=== PATIENT | male | born 1945 | race Caucasian/White ===

== ENCOUNTER → 2016-10-08 | Outpatient (CLI) | payer OTHER ==
[~2016-10-08] MED LIST: ACET-1256 PO; AMAN100C18 PO; ASPCH81X PO; BCTCR/30 EXT; CARB25TA12 PO; ESCI5TAB PO; FENO160T4 PO; FURO-85 PO; LISI-461 PO; LORA-741 PO; METR0.754 TOP; MIRT15TA2 PO; MOMLX PO; MRLP17X PO; MULT-845 PO; NYST100010 TOP; OMEP20TA PO; POTA10CA28 PO; PRAM1TAB6 PO; PROB1TAB16 PO; SENNTAB23 PO; TADA10TA PO; ZOLP10TA PO; [UNRECOGNIZED DRUG - OTHER] PO
[2016-10-08 09:46] LABS: URINE APPEARANCE CLEAR (CLEAR); URINE BILIRUBIN NEG (NEG); URINE COLOR YELLOW; URINE EPITHELIAL CELL AUTO 0-5 /lpf (0-5); URINE NITRITE NEG (NEG); URINE SPECIFIC GRAVITY 1.018 (1.000-1.030); UROBILINOGEN NEG (NEG); ZZUR CULT IF INDIC CLEAN CATCH NO
[2016-10-08 09:53] LABS: MANUAL MICROSCOPIC REQUIRED? NO; REVIEW REQ? NO
== END | disposition home or self-care (01) ==
LOC: C.LAB 09:04
PROVIDERS: ATTEND Urology
DX: R35.0 Frequency of micturition (principal); R31.9 Hematuria, unspecified

== ENCOUNTER → 2017-01-09 | Outpatient (CLI) | payer OTHER ==
[~2017-01-09] MED LIST changes: -METR0.754 TOP; -MIRT15TA2 PO; -MRLP17X PO; -[UNRECOGNIZED DRUG - OTHER] PO
[2017-01-09 12:20] LABS: BASO % 0.5 %; BASO ABS # 0.03 K/uL (0-0.2); COMPLETE YES; EOS % 1.4 %; HEMATOCRIT 46.3 % (42-52); IG% 0.2 %; LYMPH % 35.5 %; MEAN CELL VOLUME 90.8 fL (80-100); MEAN CORPUSCULAR HEMOGLOBIN 30.4 pg (25-34); MEAN CORPUSCULAR HGB CONC 33.5 g/dl (32-36); MEAN PLATELET VOLUME 10.4 fL (7.4-10.4); MONO % 9.9 %; NEUT % 52.5 %; PLATELET COUNT 228 K/uL (130-400); WHITE BLOOD COUNT 5.64 K/uL (4.8-10.8)
[2017-01-09 12:36] LABS: BLOOD UREA NITROGEN 21 mg/dl (7-18); BUN/CREATININE RATIO 15.8 (10-20); CARBON DIOXIDE 27 mmol/L (21-32); CHLORIDE 105 mmol/L (98-107); GLUCOSE 86 mg/dl (70-99); SODIUM 139 mmol/L (136-145)
[2017-01-09 12:38] LABS: CALCIUM 9.1 mg/dl (8.5-10.1)
== END | disposition home or self-care (01) ==
LOC: C.LAB1850 10:22
PROVIDERS: ATTEND Internal Medicine
DX: R60.0 Localized edema (principal)

== ENCOUNTER → 2017-04-23 | Outpatient (CLI) | payer OTHER ==
[2017-04-23 10:14] LABS: URINE APPEARANCE CLEAR (CLEAR); URINE BILIRUBIN NEG (NEG); URINE COLOR YELLOW; URINE NITRITE NEG (NEG); URINE PH 6.5 (4.5-7.5); URINE SPECIFIC GRAVITY 1.021 (1.000-1.030); UROBILINOGEN NEG (NEG)
[2017-04-23 10:17] LABS: MANUAL MICROSCOPIC REQUIRED? NO; REVIEW REQ? NO
== END | disposition home or self-care (01) ==
LOC: C.LAB1850 08:26
PROVIDERS: ATTEND Internal Medicine
DX: R35.0 Frequency of micturition (principal)

== ENCOUNTER → 2017-08-19 | Outpatient (CLI) | payer OTHER ==
[2017-08-19 10:38] LABS: HEMATOCRIT 41.9 % (42-52); MEAN CELL VOLUME 92.7 fL (80-100); MEAN CORPUSCULAR HEMOGLOBIN 30.5 pg (25-34); MEAN CORPUSCULAR HGB CONC 32.9 g/dl (32-36); MEAN PLATELET VOLUME 9.9 fL (7.4-10.4); PLATELET COUNT 257 K/uL (130-400); RED BLOOD COUNT 4.52 M/uL (4.7-6.1); WHITE BLOOD COUNT 5.87 K/uL (4.8-10.8)
[2017-08-19 11:09] LABS: ALT/SGPT 23 U/L (12-78); AST/SGOT 12 U/L (15-37); BLOOD UREA NITROGEN 23 mg/dl (7-18); BUN/CREATININE RATIO 17.7 (10-20); CALCIUM 8.4 mg/dl (8.5-10.1); CARBON DIOXIDE 31 mmol/L (21-32); CHLORIDE 101 mmol/L (98-107); CREATININE 1.28 mg/dl (0.60-1.40); GLUCOSE 82 mg/dl (70-99); POTASSIUM 4.1 mmol/L (3.5-5.1); SODIUM 135 mmol/L (136-145)
[2017-08-19 11:20] LABS: CHOLESTEROL 127 mg/dl (0-200); CHOLESTEROL/HDL RATIO 3.3; HDL CHOLESTEROL 39 mg/dl; LDL CHOLESTEROL CALCULATED 72 mg/dl; TRIGLYCERIDES 82 mg/dl (0-150); VERY LOW DENSITY LIPOPROT CALC 16 mg/dl
== END | disposition home or self-care (01) ==
LOC: C.LAB1850 09:46
PROVIDERS: ATTEND Internal Medicine
DX: E78.5 Hyperlipidemia, unspecified (principal); I10 Essential (primary) hypertension; G20 Parkinson's disease; R60.0 Localized edema

== ENCOUNTER → 2017-08-26 | Outpatient (CLI) | payer OTHER ==
[2017-08-26 17:28] LABS: HEMATOCRIT 42.8 % (42-52); MEAN CELL VOLUME 91.3 fL (80-100); MEAN CORPUSCULAR HEMOGLOBIN 30.7 pg (25-34); MEAN CORPUSCULAR HGB CONC 33.6 g/dl (32-36); MEAN PLATELET VOLUME 9.6 fL (7.4-10.4); PLATELET COUNT 252 K/uL (130-400); RED BLOOD COUNT 4.69 M/uL (4.7-6.1); WHITE BLOOD COUNT 6.86 K/uL (4.8-10.8)
[2017-08-26 17:51] LABS: FERRITIN 275.8 ng/ml (8.0-388.0)
== END | disposition home or self-care (01) ==
LOC: C.LAB1850 17:09
PROVIDERS: ATTEND Internal Medicine
DX: D64.9 Anemia, unspecified (principal)

== ENCOUNTER 2017-10-22 03:13 | Inpatient (IN) | payer OTHER ==
[2017-10-22] VITALS (7 sets, daily range): BP systolic 103–172; BP diastolic 64–94; PULSE 69–78; TEMP 36.1–36.6; O2SAT 95–97; Ht 185.4 cm; Wt 97.9 kg
[~2017-10-22] VITALS: Ht 185.4 cm; Wt 97.9 kg
[2017-10-22] MEDS ORDERED: FENTANYL CITRATE INJ 50 MCG/1 ML 2 ML VIAL IV STA (03:39)
--- NOTE | 2017-10-22 03:48 | EMERGENCY ROOM VISIT NOTE ---
History First contact with patient: 03:27 Chief Complaint: FALL Stated Complaint: Fall, Struck right shoulder and left hip History of Present Illness The patient is a 71 year old male who presents to the Emergency Room with complaints of left hip pain after a fall. The patient states that he was sorting his condo and had his things arranged into aisles. He states that he was walking through one of them and lost his footing and fell, landing onto his left hip. He states the hip is painful to move and he was unable to stand. He states the pain is located on the outside of the left hip and radiates down the leg. He rates the discomfort a 6/10. He denies any previous injury to the hip. He did not fall onto his head or lose consciousness. He does state that he was slightly lightheaded prior to the fall, although this is not unusual for him. He denies any chest pain or shortness of breath. Review of Systems A complete 10 point review of systems was reviewed with the patient with pertinent positives and negatives as per history of present illness. All else were negative. Past Medical/Surgical History Medical Problems: (1) Hip fracture, left Social History Smoking Status: Never Smoker Housing Status: lives alone Current/Historical Medications Scheduled Acetaminophen (Tylenol), 1,000 MG PO TID Amantadine Hcl (Amantadine Hcl), 100 MG PO BID Aspirin (Aspirin Chewable), 81 MG PO QAM Carbidopa/Levodopa (Sinemet 25MG/100MG), 2 TAB PO TID Fenofibrate (Lofibra), 1 TAB PO QAM Lisinopril (Zestril), 10 MG PO DAILY Lorazepam (Ativan), 0.5 TAB PO HS Multiple Vitamins W/ Minerals (Centrum Silver Adult 50+), 1 TAB PO QAM Mupirocin 2% (Bactroban 2%), 1 APPLN EXT TID Nystatin (Topical) (Nystop), 1 APPLN TOP TID Omeprazole (Omeprazole), 1 TAB PO QAM Potassium Chloride (Micro-K Ext Rel), 10 MEQ PO DAILY Pramipexole Dihydrochloride (Pramipexole Dihydrochlori), 1 TAB PO TID Sennosides-Docusate Sodium (Stool Softener), PO QAM Tadalafil (Cialis), 10 MG PO UD Scheduled PRN Magnesium Hydroxide (Milk of Magnesia), 30 ML PO PRN PRN for Constipation Zolpidem Tartrate (Ambien), 1 TAB PO HS PRN for Insomnia Physical Exam Vital Signs Date Time Temp Pulse Resp B/P (MAP) Pulse Ox O2 Delivery O2 Flow Rate FiO2 10/22/17 06:18 70 18 155/95 97 Room Air 10/22/17 03:22 36.9 74 18 182/107 97 Room Air Physical Exam VITALS: Vitals are noted on the nurse's note and reviewed by myself. Vital signs stable. GENERAL: This is a 71-year-old male, in no acute distress, nondiaphoretic, well- developed well-nourished. SKIN: The skin was without rashes, erythema, edema, or bruising. HEAD: Normocephalic atraumatic. EARS: External auditory canals clear, tympanic membranes pearly huitron without erythema or effusion bilaterally. EYES: Pupils equal round and reactive to light and accommodation. Extraocular movements intact. MOUTH: Mucous membranes moist. NECK: Supple without nuchal rigidity. Cervical spine is nontender. HEART: Regular rate and rhythm without murmurs gallops or rubs. LUNGS: Clear to auscultation bilaterally without wheezes, rales or rhonchi. MUSCULOSKELETAL: No deformities noted. There is tenderness to palpation to the lateral aspect of the left hip. No tenderness of the distal femur, knee or tibia/fibula. Mild tenderness over the anterior right shoulder. NEURO: Patient was alert and oriented to person place and time. No focal neurological deficits. Medical Decision & Procedures ER Provider Diagnostic Interpretation: LEFT FEMUR: Left femoral neck fracture. PELVIS: Left femoral neck fracture. CHEST: No acute cardiopulmonary disease. SHOULDER: No obvious acute fractures. Laboratory Results 10/22/17 04:00 Red Blood Count 5.08, Mean Corpuscular Volume 91.3, Mean Corpuscular Hemoglobin 31.1, Mean Corpuscular Hemoglobin Concent 34.1, Mean Platelet Volume 10.1, Neutrophils (%) (Auto) 77.9, Lymphocytes (%) (Auto) 14.4, Monocytes (%) (Auto) 6.6, Eosinophils (%) (Auto) 0.1, Basophils (%) (Auto) 0.3, Neutrophils # (Auto) 7.07, Lymphocytes # (Auto) 1.31, Monocytes # (Auto) 0.60, Eosinophils # (Auto) 0.01, Basophils # (Auto) 0.03 10/22/17 04:00 Test 10/22/17 04:00 10/22/17 05:41 10/22/17 06:00 White Blood Count 9.08 K/uL (4.8-10.8) Red Blood Count 5.08 M/uL (4.7-6.1) Hemoglobin 15.8 g/dL (14.0-18.0) Hematocrit 46.4 % (42-52) Mean Corpuscular Volume 91.3 fL (80-100) Mean Corpuscular Hemoglobin 31.1 pg (25-34) Mean Corpuscular Hemoglobin Concent 34.1 g/dl (32-36) Platelet Count 195 K/uL (130-400) Mean Platelet Volume 10.1 fL (7.4-10.4) Neutrophils (%) (Auto) 77.9 % Lymphocytes (%) (Auto) 14.4 % Monocytes (%) (Auto) 6.6 % Eosinophils (%) (Auto) 0.1 % Basophils (%) (Auto) 0.3 % Neutrophils # (Auto) 7.07 K/uL (1.4-6.5) Lymphocytes # (Auto) 1.31 K/uL (1.2-3.4) Monocytes # (Auto) 0.60 K/uL (0.11-0.59) Eosinophils # (Auto) 0.01 K/uL (0-0.5) Basophils # (Auto) 0.03 K/uL (0-0.2) RDW Standard Deviation 47.9 fL (36.4-46.3) RDW Coefficient of Variation 14.4 % (11.5-14.5) Immature Granulocyte % (Auto) 0.7 % Immature Granulocyte # (Auto) 0.06 K/uL (0.00-0.02) Anion Gap 6.0 mmol/L (3-11) Est Creatinine Clear Calc Drug Dose 93.0 ml/min Estimated GFR () 98.6 Estimated GFR (Non- 85.1 BUN/Creatinine Ratio 25.4 (10-20) Calcium Level 8.8 mg/dl (8.5-10.1) Total Bilirubin 0.5 mg/dl (0.2-1) Aspartate Amino Transf (AST/SGOT) 19 U/L (15-37) Alanine Aminotransferase (ALT/SGPT) 32 U/L (12-78) Alkaline Phosphatase 74 U/L (45-117) Total Protein 7.6 gm/dl (6.4-8.2) Albumin 3.9 gm/dl (3.4-5.0) Globulin 3.7 gm/dl (2.5-4.0) Albumin/Globulin Ratio 1.1 (0.9-2) Prothrombin Time 10.4 SECONDS (9.0-12.0) Prothromb Time International Ratio 1.0 (0.9-1.1) Activated Partial Thromboplast Time 23.7 SECONDS (21.0-31.0) Partial Thromboplastin Ratio 0.9 Urine Color YELLOW Urine Appearance CLEAR (CLEAR) Urine pH 5.5 (4.5-7.5) Urine Specific [place] 1.023 (1.000-1.030) Urine Protein NEG (NEG) Urine Glucose (UA) NEG (NEG) Urine Ketones NEG (NEG) Urine Occult Blood NEG (NEG) Urine Nitrite NEG (NEG) Urine Bilirubin NEG (NEG) Urine Urobilinogen NEG (NEG) Urine Leukocyte Esterase NEG (NEG) Medications Administered Medications (Trade) Dose Ordered Sig/Alison Route Start Time Stop Time Status Last Admin Dose Admin Fentanyl Citrate (Fentanyl Inj) 50 mcg NOW STAT IV 10/22/17 03:39 10/22/17 03:41 DC 10/22/17 04:06 50 MCG Morphine Sulfate (MoRPHine SULFATE INJ) 4 mg STK-MED ONCE .ROUTE 10/22/17 05:43 10/22/17 05:44 DC 10/22/17 05:48 4 MG ECG Rate (beats per minute): 68 Rhythm: normal sinus Findings: no acute ischemic change, no ectopy Change: no significant change Medical Decision Differential diagnosis includes hip fracture, pelvic fracture, hip dislocation, contusion, among others. The patient is a 71-year-old male who presents today complaining of left hip pain after a fall. X-ray showed a fracture of the left femoral neck. X-rays of the pelvis and shoulder showed no other acute fractures. Labs reviewed and were unremarkable. EKG was interpreted by myself and shows a normal sinus rhythm without ischemia or ectopy. The patient has been seen by [facility] in the past. He was admitted to the [facility] service for evaluation and inpatient care. Medication Reconcilliation Current Medication List: was personally reviewed by me Blood Pressure Screening Patient's blood pressure: Elevated blood pressure Blood pressure disposition: Elevated BP felt to be situational Impression Primary Impression: Fracture of femoral neck Departure Information Referrals Pro,Milad Lazaro M.D. (PCP) Patient Instructions My [facility] Problem Qualifiers Primary Impression: Fracture of femoral neck Encounter type: initial encounter Fracture type: closed Laterality: left Qualified Codes: S72.002A - Fracture of unspecified part of neck of left femur , initial encounter for closed fracture
[2017-10-22 04:09] LABS: BASO % 0.3 %; BASO ABS # 0.03 K/uL (0-0.2); EOS % 0.1 %; EOS ABS # 0.01 K/uL (0-0.5); HEMATOCRIT 46.4 % (42-52); HEMOGLOBIN 15.8 g/dL (14.0-18.0); IG# 0.06 K/uL (0.00-0.02); LYMPH % 14.4 %; LYMPH ABS # 1.31 K/uL (1.2-3.4); MEAN CELL VOLUME 91.3 fL (80-100); MEAN CORPUSCULAR HEMOGLOBIN 31.1 pg (25-34); MEAN CORPUSCULAR HGB CONC 34.1 g/dl (32-36); MEAN PLATELET VOLUME 10.1 fL (7.4-10.4); MONO % 6.6 %; NEUT % 77.9 %; NEUT ABS # 7.07 K/uL (1.4-6.5); PLATELET COUNT 195 K/uL (130-400); RED CELL DISTRIBUTION WIDTH CV 14.4 % (11.5-14.5); RED CELL DISTRIBUTION WIDTH SD 47.9 fL (36.4-46.3); WHITE BLOOD COUNT 9.08 K/uL (4.8-10.8)
[2017-10-22 04:27] LABS: ALBUMIN 3.9 gm/dl (3.4-5.0); CALCIUM 8.8 mg/dl (8.5-10.1); CREATININE 0.91 mg/dl (0.60-1.40); POTASSIUM 4.2 mmol/L (3.5-5.1)
[2017-10-22 04:29] LABS: TOTAL PROTEIN 7.6 gm/dl (6.4-8.2)
[2017-10-22] MEDS ORDERED: ACETAMINOPHEN 325 MG TAB PO PRN (05:30)
[2017-10-22] MEDS ORDERED: ZOLPIDEM TARTRATE 10 MG TAB PO PRN (05:30)
[2017-10-22] MEDS ORDERED: MoRPHine SULFATE 4 MG/ML 1 ML CARP\\VIAL IV PRN ×2 (05:30→17:00)
[2017-10-22] MEDS ORDERED: MAGNESIUM HYDROXIDE SUSP 30 ML UDC PO PRN ×2 (05:30)
[2017-10-22] MEDS ORDERED: ONDANSETRON INJ 2 MG/ML 2 ML VIAL IV PRN ×2 (05:30→17:00)
[2017-10-22] MEDS ORDERED: ALUMINUM/MAGNESIUM/SIMETH (MAALOX MAX) 30 ML UDC PO PRN (05:30)
--- NOTE | 2017-10-22 05:35 | History and Physical ---
History & Physical Date & Time of Service: Oct 22, 2017 at 05:06 Chief Complaint: Fall, Struck right shoulder and left hip Primary Care Physician: Milad Boyle M.D. History of Present Illness Source: patient, hospital records 71 year old male with Parkinson's, HTN, HLD who presents to the ED with left hip pain after a fall. Patient was walking in clutter room, when is left foot hit a box and patient fell towards his left side, unable to break fall with hands despite not holding anything in his hands. He denies any drug or alcohol use at time of fall, although admits to chronic cannabis use. He denies dizziness, lightheadedness, vasovagal symptoms prior to fall. He did hit his head upon fall or lose consciousness. Upon falling, he tried to wiggle/move but found left hip was painful and unable to move completely. He inched towards the phone and called for help. He states he is currently experiencing pain in his left hip and right shoulder ( possibly previous arthritic pain) as constant sharp pain. Initially had radiating pain down the leg but less so currently. He rates the discomfort a 6/ 10 since his pain medication has worn out. He denies any previous injury to the hip. He otherwise denies fevers/chills, headaches, CP, palpitations, dyspnea, abdominal pain, lower extremity swelling or rashes. He has been tolerating diet without nausea or vomiting, ambulates with walker and cane when outside the home. and is voiding and stooling appropriately. ROS is unremarkable except as noted above. Past Medical/Surgical History Medical Problems Parkinson HTN HLD Depression Surgical Problems Back [place] [address] Whittaker Family History Mom and dad had lung cancer Mom had osteoporosis Social History Smoking Status: Never Smoker Smokeless Tobacco Use: No Alcohol Use: none Drug Use: marijuana (several times per week) Housing status: lives alone, halfway ([facility]) Immunizations History of Influenza Vaccine: Yes History of Tetanus Vaccine?: Yes History of Pneumococcal: Yes History of Hepatitis B Vaccine: No Allergies Coded Allergies: Iodinated Diagnostic Agents (Verified Allergy, Unknown, SKIN FLUSHES, ) Home Medications Scheduled Acetaminophen (Tylenol), 1,000 MG PO TID Amantadine Hcl (Amantadine Hcl), 100 MG PO BID Aspirin (Aspirin Chewable), 81 MG PO QAM Carbidopa/Levodopa (Sinemet 25MG/100MG), 2 TAB PO TID Fenofibrate (Lofibra), 1 TAB PO QAM Lisinopril (Zestril), 10 MG PO DAILY Lorazepam (Ativan), 0.5 TAB PO HS Multiple Vitamins W/ Minerals (Centrum Silver Adult 50+), 1 TAB PO QAM Mupirocin 2% (Bactroban 2%), 1 APPLN EXT TID Nystatin (Topical) (Nystop), 1 APPLN TOP TID Omeprazole (Omeprazole), 1 TAB PO QAM Potassium Chloride (Micro-K Ext Rel), 10 MEQ PO DAILY Pramipexole Dihydrochloride (Pramipexole Dihydrochlori), 1 TAB PO TID Sennosides-Docusate Sodium (Stool Softener), PO QAM Tadalafil (Cialis), 10 MG PO UD Scheduled PRN Magnesium Hydroxide (Milk of Magnesia), 30 ML PO PRN PRN for Constipation Zolpidem Tartrate (Ambien), 1 TAB PO HS PRN for Insomnia Physical Exam Vital Signs Date Time Temp Pulse Resp B/P (MAP) Pulse Ox O2 Delivery O2 Flow Rate FiO2 10/22/17 03:22 36.9 74 18 182/107 97 Room Air General Appearance: WD/WN, no apparent distress Head: normocephalic, atraumatic Eyes: normal inspection ENT: hearing grossly normal Neck: supple Respiratory/Chest: normal breath sounds, no respiratory distress, no accessory muscle use Cardiovascular: regular rate, rhythm, no murmur, normal peripheral pulses Abdomen/GI: normal bowel sounds, non tender, soft Extremities/Musculoskelatal: no calf tenderness, + swelling (left leg mildly swollen) Neurologic/Psych: no motor/sensory deficits (Sensation in lower extremities in tact, patient able to wiggle toes bilaterally), alert, normal mood/affect, oriented x 3 Skin: + rash (Evidence of some cellulitis on left perez) Diagnostics Laboratory Results Results Past 24 Hours Test 10/22/17 04:00 10/22/17 04:50 Range/Units White Blood Count 9.08 4.8-10.8 K/uL Red Blood Count 5.08 4.7-6.1 M/uL Hemoglobin 15.8 14.0-18.0 g/dL Hematocrit 46.4 42-52 % Mean Corpuscular Volume 91.3 80-100 fL Mean Corpuscular Hemoglobin 31.1 25-34 pg Mean Corpuscular Hemoglobin Concent 34.1 32-36 g/dl Platelet Count 195 130-400 K/uL Mean Platelet Volume 10.1 7.4-10.4 fL Neutrophils (%) (Auto) 77.9 % Lymphocytes (%) (Auto) 14.4 % Monocytes (%) (Auto) 6.6 % Eosinophils (%) (Auto) 0.1 % Basophils (%) (Auto) 0.3 % Neutrophils # (Auto) 7.07 1.4-6.5 K/uL Lymphocytes # (Auto) 1.31 1.2-3.4 K/uL Monocytes # (Auto) 0.60 0.11-0.59 K/uL Eosinophils # (Auto) 0.01 0-0.5 K/uL Basophils # (Auto) 0.03 0-0.2 K/uL RDW Standard Deviation 47.9 36.4-46.3 fL RDW Coefficient of Variation 14.4 11.5-14.5 % Immature Granulocyte % (Auto) 0.7 % Immature Granulocyte # (Auto) 0.06 0.00-0.02 K/uL Sodium Level 136 136-145 mmol/L Potassium Level 4.2 3.5-5.1 mmol/L Chloride Level 104 98-107 mmol/L Carbon Dioxide Level 26 21-32 mmol/L Anion Gap 6.0 3-11 mmol/L Blood Urea Nitrogen 23 7-18 mg/dl Creatinine 0.91 0.60-1.40 mg/dl Est Creatinine Clear Calc Drug Dose 93.0 ml/min Estimated GFR () 98.6 Estimated GFR (Non- 85.1 BUN/Creatinine Ratio 25.4 10-20 Random Glucose 100 70-99 mg/dl Calcium Level 8.8 8.5-10.1 mg/dl Total Bilirubin 0.5 0.2-1 mg/dl Aspartate Amino Transf (AST/SGOT) 19 15-37 U/L Alanine Aminotransferase (ALT/SGPT) 32 12-78 U/L Alkaline Phosphatase 74 45-117 U/L Total Protein 7.6 6.4-8.2 gm/dl Albumin 3.9 3.4-5.0 gm/dl Globulin 3.7 2.5-4.0 gm/dl Albumin/Globulin Ratio 1.1 0.9-2 Diagnostic Radiology Imaging: Evidence of left femoral neck fracture Await final radiology reports on all xrays. EKG Normal sinus rhythm Normal ECG HR 68, QTc 414 Impression Assessment and Plan 71 year old male with Parkinson's, HTN, HLD who presents to the ED with left femoral neck fracture after a fall. Left hip fracture - Ortho consulted - IV Morphine ordered 2mg for pain 1-3, 3mg for pain 4-6, 4mg for pain 7-10 - Await final reads on all films Left lower leg cellulitis - IV ceftriaxone ordered Groin rash - Nystatin cream BID Parkinson's/dementia - Continue Carbidopa/Levodopa, amantadine CAD/HTN/HLD - Aspirin held - Continue lisinopril, fenofibrate Depression - Continue escitalopram VTE ppx - SCDs Attending addendum: I have physically seen this patient, have supervised the medical residents activities, and agree with the H&P unless as otherwise noted. Assessment and Plan: Left hip fracture-- Admit to medical surgical floor Nothing by mouth except essential medications IV fluids Tylenol when necessary mild pain Morphine sulfate IV when necessary severe pain Consult orthopedics Left lower extremity cellulitis-- Ceftriaxone 1 g IV daily CAD/hypertension-- Continue lisinopril with hold parameters Hold aspirin preoperatively Parkinson's with dementia-- Continue carbidopa/levodopa and amantadine Level of Care Med/Surg Advanced Directives Existing Advance Directive: No Existing Living Will: No Existing Power of Research Anthropologist: No Existing Health Care Proxy: No Resuscitation Status FULL RESUSCITATION VTE Prophylaxis VTE Risk Assessment Done? Y/N: Yes Risk Level: Moderate Given or contraindicated: SCD's Resident Tracking Resident Involvement: Resident Care Provided Care Provided: Adult Hospital Medicine
[2017-10-22] MEDS ORDERED: MoRPHine SULFATE 4 MG/ML 1 ML CARP\\VIAL ONE (05:43)
[2017-10-22] MEDS ORDERED: ROPIVACAINE 5MG/ML 30 ML 150 MG, BUPIVACAINE/EPINEPHR 0.5% MPF 30 ML, KETOROLAC TROMETH... INFIL SCH ×7 (06:00)
[2017-10-22] MEDS ORDERED: TRANEXAMIC ACID INJ 1,000 MG in SYRINGE 0 ML IV SCH (06:00)
[2017-10-22] MEDS ORDERED: VANCOMYCIN INJ 1,500 MG in SODIUM CHLORIDE 0.9% 500ML 500 ML IV SCH (06:00)
[2017-10-22] MEDS ORDERED: CEFAZOLIN 2000MG IV PUSH 15 ML IV SCH (06:00)
[2017-10-22 06:02] LABS: PTT PATIENT 23.7 SECONDS (21.0-31.0)
[2017-10-22] MEDS ORDERED: POLYETHYLENE (MIRALAX) 17 GM PACK PO PRN (07:00)
[2017-10-22] MEDS ORDERED: MoRPHine SULFATE 2 MG/ML CARP IV PRN (07:15)
--- NOTE | 2017-10-22 07:18 | DIAGNOSTIC IMAGING REPORT ---
R SHOULDER MIN 2 VIEWS ROUTINE CLINICAL HISTORY: right shoulder pain, fall trauma. Pain. COMPARISON: None. DISCUSSION: The bones and joint spaces appear intact. There is no evidence of fracture, dislocation or bony disease. There is no evidence for soft tissue swelling. Moderate degenerative change throughout IMPRESSION: Negative study. Moderate degenerative change The above report was generated using voice recognition software. It may contain grammatical, syntax or spelling errors. Electronically signed by: Darion Major M.D. 10/22/2017 7:17 AM Dictated Date/Time: 10/22/2017 7:16 AM
--- NOTE | 2017-10-22 07:26 | DIAGNOSTIC IMAGING REPORT ---
PELVIS 1 OR 2 VIEW ROUTINE CLINICAL HISTORY: 71 years-old Male presenting with fall, left hip injury. TECHNIQUE: Single frontal view of the pelvis was obtained. COMPARISON: None. FINDINGS: Osteopenia. Sacroiliac joints and pubic symphysis intact. The bony pelvis is intact allowing for osteopenia. However, mildly displaced transcervical fracture of the left femoral neck. The left femoral head remains within the acetabulum. Right hip joint congruent. IMPRESSION: Mildly displaced transverse fracture of the left femoral neck. Electronically signed by: Dayton Sales M.D. 10/22/2017 7:25 AM Dictated Date/Time: 10/22/2017 7:23 AM
--- NOTE | 2017-10-22 07:28 | DIAGNOSTIC IMAGING REPORT ---
L FEMUR 2 VIEWS ROUTINE CLINICAL HISTORY: 71 years-old Male presenting with fall, left hip injury. TECHNIQUE: Frontal and crosstable lateral views of the left femur were obtained. COMPARISON: None. FINDINGS: Mildly displaced transcervical fracture of the left femoral neck. The distal fracture fragment is slightly impacted and displaced proximally. No significant angulation at the fracture site. The left femoral head remains congruent within the hip joint. Osteopenia is present. Degenerative changes at the left knee. IMPRESSION: Mildly displaced and impacted transcervical left femoral neck fracture. The report will be called/faxed according to standard departmental protocol. Electronically signed by: Dayton Sales M.D. 10/22/2017 7:27 AM Dictated Date/Time: 10/22/2017 7:25 AM
--- NOTE | 2017-10-22 07:29 | DIAGNOSTIC IMAGING REPORT ---
CHEST 1 VW FRONT-NOT PORTABLE CLINICAL HISTORY: 71 years-old Male presenting with LT HIP FX. TECHNIQUE: Portable supine AP view of the chest was obtained. COMPARISON: 08/30/2015. FINDINGS: Atherosclerosis of the aortic arch. Cardiac silhouette normal in size. Prominence of pulmonary vasculature likely related to supine technique. Minimal persistent linear opacities at the left lung base. No new focal infiltrate. No large effusion or pneumothorax. Degenerative changes of the thoracic spine. Upper abdomen normal. IMPRESSION: 1. Minimal left basilar atelectasis or scarring. No convincing evidence of acute cardiopulmonary disease. Electronically signed by: Dayton Sales M.D. 10/22/2017 7:28 AM Dictated Date/Time: 10/22/2017 7:27 AM
[2017-10-22] MEDS: POTASSIUM CHLORIDE 10 MEQ TABCR PO SCH (08:14)
[2017-10-22] MEDS: ACETAMINOPHEN 500 MG TAB PO SCH ×3 (08:15→21:00)
[2017-10-22] MEDS: CEROVITE ADV FORMULA TAB PO SCH (08:15)
--- NOTE | 2017-10-22 08:47 | CONSULTATION REPORT ---
DATE OF CONSULTATION: 10/22/2017 REASON FOR CONSULT: Left hip fracture. HISTORY OF PRESENT ILLNESS: The patient is a 71-year-old white male who states that he resides at the [facility]. He has a history of Parkinson's disease and states that he has been living at the [facility] for some time now. He states that he was going through some of his boxes that he keeps in storage, was them for his kids, and he ended up losing his balance and fell onto his left side. He was unable to break his fall and he had immediate pain in his left hip and groin. He also had some right shoulder pain. He states though that he feels that he had some arthritis in that hip because the hip has been giving him some pain over the last 6 months to a year. He uses a cane or a walker at times to ambulate but denies any dizziness or lightheadedness or shortness of breath or chest pain prior to or after the fall. He denies loss of consciousness. He was brought to the Emergency Room where he was seen by the staff, x-rays were taken and it was found that he had a left displaced femoral neck fracture. [facility] had the patient admitted and we have been asked to see him for his left hip fracture. PAST MEDICAL HISTORY: Parkinson's disease, hypertension, hyperlipidemia, depression. PAST SURGICAL HISTORY: History of tonsillectomy, left knee surgery and also lumbar decompression and fusion at L4-L5 by Dr. Whittaker approximately 3-4 years ago. FAMILY HISTORY: Lung carcinoma, osteoporosis. SOCIAL HISTORY: The patient is a nonsmoker who does not use alcohol. He does use marijuana several times per week and again lives at [facility], an assisted living. MEDICATIONS: Tylenol 1000 mg p.o. t.i.d., amantadine 100 mg p.o. b.i.d., aspirin 81 mg p.o. q.a.m., Sinemet 25/100 two tabs p.o. t.i.d., fenofibrate 1 tab p.o. q.a.m., lisinopril 10 mg p.o. daily, lorazepam 0.5 mg p.o. at bedtime, multiple vitamin 1 p.o. q.a.m., Bactroban 2% one application applied externally t.i.d., nystatin topically t.i.d., omeprazole 1 tab p.o. q.a.m., Micro-K 10 mEq p.o. daily, pramipexole hydrochloride 1 tab p.o. t.i.d., stool softener p.o. q.a.m. and Cialis 10 mg p.o. as directed. He also takes magnesium hydroxide p.r.n. and Ambien 1 tab p.o. at bedtime p.r.n. ALLERGIES: IODINATED CONTRAST MEDIA. REVIEW OF SYSTEMS: As per admitting history and physical. PHYSICAL EXAMINATION: GENERAL: The patient is a well-developed, well-nourished white male who is alert and oriented to person and place. EXTREMITIES: On examination of his left hip, it is shortened and mildly externally rotated compared to the right. No attempts to move the left hip are attempted at this time because of left hip fracture. His left knee is nontender as is his left ankle. 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 His right lower extremity is nontender on palpation at the hip, knee and ankle, and he has decent range of motion of the right lower extremity. Right upper extremity is somewhat tender with range of motion and mild crepitus and slight decrease in range of motion. Right elbow and wrist are essentially nontender at this time and have good range of motion. Left upper extremity is benign at this time as well. NECK: Nontender on palpation and he has good range of motion and he is denying thoracic and low back pain at this time. NEURLOGIC: There are no gross motor or sensory deficits at this time other than the patient unable to move his left hip due to hip fracture. ASSESSMENT: Left displaced femoral neck fracture. PLAN: I discussed with the patient that he will likely need total hip arthroplasty due to his age and also previous arthritis noted in the left hip joint itself. This will be finalized with Dr. Hanna who will either do left total hip arthroplasty versus bipolar hemiarthroplasty. Thank you.
[2017-10-22] MEDS: ESCITALOPRAM OXALATE 10 MG TAB PO SCH (09:00)
[2017-10-22] MEDS: DOCUSATE SODIUM/SENNA 50/8.6MG TAB PO SCH ×2 (09:00→20:59)
[2017-10-22] MEDS: NYSTATIN CR 15 GM TUBE EXT SCH ×2 (09:00→20:58)
[2017-10-22] MEDS: PANTOprazole SOD 40 MG TAB PO SCH (09:02)
[2017-10-22] MEDS: CARBIDOPA/LEVODOPA 25/100MG TAB PO SCH ×3 (09:03→22:17)
[2017-10-22] MEDS: AMANTADINE HCL 100 MG CAP PO SCH ×2 (09:04→20:58)
[2017-10-22] MEDS: LISINOPRIL 10 MG TAB PO SCH (09:05)
[2017-10-22] MEDS: PRAMIPEXOLE DIHYDROCHLORIDE 0.5 MG TAB PO SCH ×3 (09:06→22:18)
[2017-10-22] MEDS: CEFTRIAXONE SOD INJ 1,000 MG in DEXTROSE 5% 50ML 50 ML IV SCH (09:53)
--- NOTE | 2017-10-22 10:11 | Progress Note ---
Progress Note Date of Service Oct 22, 2017. Progress Note Follow up note from admission this AM for left hip fracture Patient laying in bed, minimal pain as long as he does not move, pain is moderate to severe if he moves in bed. Appreciate ortho note, plan for ATIF vs bipolar hemiarthroplasty Patient has no history of NV, arrhythmia, valve disease, stroke or CKD. EKG shows normal sinus rhythms, Cr normal, CXR normal. BP up slightly with pain. - Left hip fracture: for OR today, patient would be intermediate risk for intermediate risk procedure pain controlled with Morphine NPO continue IV fluids will need PT/OT after surgery, will evaluate for placement/rehab - Elevated BP: due to pain, continue home dosing of Lisinopril - Parkinson's disease: continue Amantadine and Sinemet
[2017-10-22] MEDS ORDERED: FENTANYL CITRATE INJ 50 MCG/1 ML 2 ML VIAL ONE ×2 (12:30→15:31)
[2017-10-22] MEDS ORDERED: MIDAZOLAM HCL 1 MG/ML 2ML VIAL ONE ×3 (12:30→15:35)
[2017-10-22] MEDS ORDERED: VANCOMYCIN CONSULT ACTIVE PRN (12:30)
[2017-10-22] MEDS ORDERED: PROPOFOL IV EMULSION 10 MG/ML 20 ML VIAL IV ONE ×4 (12:30→15:39)
--- NOTE | 2017-10-22 12:36 | Orthopedic Progress Note ---
Orthopedic Progress Note Date of Service Oct 22, 2017. Subjective Additional Notes: Patient seen in bed, comfortable, c/o pain L hip, admits to fall today when ambulating. Víctor LOC or hitting head, denies pain in associated extremities, denies numbness or tingling in LLE Objective NAD, AO x 3 LLE NVSI +EHL/FHL/TA/GS SILT grossly, CR< 2 seconds compartments soft, NT, skin intact, short/externally rotated. Date Time Temp Pulse Resp B/P (MAP) Pulse Ox O2 Delivery O2 Flow Rate FiO2 10/22/17 09:04 78 153/90 (111) 10/22/17 07:30 36.6 77 12 172/94 Room Air 10/22/17 06:18 70 18 155/95 97 Room Air 10/22/17 03:22 36.9 74 18 182/107 97 Room Air Laboratory Results 24 Hours: Test 10/22/17 04:00 10/22/17 05:41 White Blood Count 9.08 K/uL Red Blood Count 5.08 M/uL Hemoglobin 15.8 g/dL Hematocrit 46.4 % Mean Corpuscular Volume 91.3 fL Mean Corpuscular Hemoglobin 31.1 pg Mean Corpuscular Hemoglobin Concent 34.1 g/dl Platelet Count 195 K/uL Mean Platelet Volume 10.1 fL Neutrophils (%) (Auto) 77.9 % Lymphocytes (%) (Auto) 14.4 % Monocytes (%) (Auto) 6.6 % Eosinophils (%) (Auto) 0.1 % Basophils (%) (Auto) 0.3 % Neutrophils # (Auto) 7.07 K/uL Lymphocytes # (Auto) 1.31 K/uL Monocytes # (Auto) 0.60 K/uL Eosinophils # (Auto) 0.01 K/uL Basophils # (Auto) 0.03 K/uL Prothromb Time International Ratio 1.0 Prothrombin Time 10.4 SECONDS Assessment & Plan Assessment: Left femoral neck fracture s/p fall Plan: -NPO -Ancef and Vanco environmental conflict manager to OR -NWB LLE -Pain control -Medically optimized for OR - 71 yo male with displaced left femoral neck fracture sustained after a fall. The patient was medically stabilized on 10/22/2017. The patient remains relatively independent and ambulates daily with cane and admits to history of left hip pain 1 year. I indicated the patient for left total hip arthroplasty. The patient was informed of the risks and benefits of surgery, which included but not limited to infection, bleeding, blood clots, damage to nerves, vessels, bone and soft tissue, dislocation, leg length discrepancy, need for additional surgery and . The patient chose to move forward with surgical intervention and informed consent was obtained.
[2017-10-22] MEDS ORDERED: BACITRACIN 50000 UNIT VIAL ONE (13:12)
[2017-10-22] MEDS ORDERED: POVIDONE-IODINE OP SOLN 30 ML BTL ONE (13:12)
[2017-10-22] MEDS ORDERED: EpHEDrine SULFATE 50MG/5ML SYR ONE (14:52)
[2017-10-22] MEDS ORDERED: PHENYLEPHRINE 100MCG/ML 5ML SYR ONE (15:49)
--- NOTE | 2017-10-22 16:50 | [facility] Post Operative Brief Note ---
Immediate Operative Summary Operative Date Oct 22, 2017. Pre-Operative Diagnosis Left displaced femoral neck fracture Post-Operative Diagnosis Left displaced femoral neck fracture Procedure(s) Performed Left Total Hip Arthroplasty-Uncemented Surgeon Dr. Hanna Felt Hat Mellowing Machine Operator Surgeon(s) Kati Rhodes PA-C Estimated Blood Loss 250ml Findings Consistent with Post-Op Diagnosis Fluids (cc crystalloids) 2000 Specimens a. Left Femoral Head Drains None Anesthesia Type MAC Spinal Regional Complication(s) none Disposition Disposition: Recovery Room / PACU
[2017-10-22] MEDS: SODIUM CHLORIDE 0.9% 1000ML 1,000 ML IV SCH (16:53)
[2017-10-22] MEDS ORDERED: NALOXONE HCL 0.4 MG/1 ML VIAL/CARP IV PRN (17:00)
--- NOTE | 2017-10-22 17:02 | [facility] Operative Report ---
Operative Report Operative Date Oct 22, 2017. Pre-Operative Diagnosis Left displaced femoral neck fracture Post-Operative Diagnosis Left displaced femoral neck fracture Procedure(s) Performed Left Total Hip Arthroplasty-Uncemented Surgeon Dr. Hanna Custody Assistant Surgeon(s) Kati Rhodes PA-C Estimated Blood Loss 250ml Findings see dictated op note Fluids 2000 Specimens a. Left Femoral Head Drains None Anesthesia Type MAC Spinal Regional Complication(s) none Disposition Recovery Room / PACU Indications 71 year-old male with displaced left femoral neck fracture sustained after a fall from standing height. The patient was medically stabilized on 10/22/2017. The patient ambulates with a cane and is independent and reports pain in his left hip 1 year prior to his fracture.. I indicated the patient for left total hip arthroplasty. The patient was informed of the risks and benefits of surgery, which included but not limited to infection, bleeding, blood clots, damage to nerves, vessels, bone and soft tissue, dislocation, leg length discrepancy, need for additional surgery and . The patient chose to move forward with surgical intervention and informed consent was obtained. Description of Procedure Following induction of adequate spinal anesthesia, the patient was transferred to the OR table and placed in lateral decubitus position with right hip down. The left hip was prepped and draped in the typical sterile fashion and a posterior/ Elias-Langenbeck incision was made. Subcutaneous tissue was sharply dissected. Electrocautery was used for hemostasis. The fascia was incised throughout the length of the wound and retracted with the Charnley retractor. The bursa was taken down and the short external rotators were identified. The pyriformis was tagged with #1 Vicryl. The short external rotators and capsule were divided from the posterior aspect of the femur using electrocautery. The posterior capsule was tagged with #1 Vicryl. Both external rotators and posterior capsule were swept posteriorly and protected. The fracture site was identified. The hip was flexed and internally rotated and exposure of the femoral neck was gained with an old-style Hohmann and a blunt Hohmann. A femoral rasp was utilized as a guide for making the appropriate level femoral neck cut with oscillating saw. This bone fragment was removed and reserved on the back table. Next, attention was turned to the femoral head which was still located in the acetabulum. Access was gained utilizing a bone hook to retract the femur while the offset retractors were placed anterior and posteriorly. A tenaculum and cob were utilized to deliver the femoral head from the acetabulum. Acetabular labrum as well as posterior capsule elements were removed using electrocautery and forceps. Fovea centralis was cleared of all soft tissue. Sequential reaming was performed starting at 46mm and carried up to a 53mm and decision was made to proceed with impaction of a 54mm trabecular metal cup. This was impacted and held using two 35 mm bone screw. The trial acetabular liner was placed at this time. Next, attention was turned to the femoral portion of the case where a Bovie and pickup was used to further clear short external rotators from their insertion on the femur. Box osteotome was used to gain access to the femoral canal and the lateral reamer were used to further open the proximal lateral canal. Sequentially rasping was carried up to a 7 which gave good fit and fill of the proximal femur. A trial reduction was carried out with a extended offset femoral neck component a -3.5 x 36 mm femoral head. The trial reduction was stable in all degrees of rotation with no [id number] impingement. The hip was dislocated. The trial components were removed and access to the acetabulum was re-established. The trial liner was removed and the cup was irrigated to ensure all debris was removed. The final high wall acetabular liner was inserted and properly seated in the cup. Access to the femur was once more gained and the 7 femoral stem with extended offset was impacted into position. The hip was once more assessed with the -3.5 x 36mm femoral head. Stability was accessed and found to be excellent with equal leg lengths. The hip was dislocated for the last time and the final -3.5 x 36mm metal femoral head was impacted in place and the hip was reduced. Range of motion was checked once again and found to be stable. The wound was copiously irrigated with sterile saline solution with bacitracin. The apoorva-incisional soft tissue was injected utilizing [facility] ortho mix which includes a combination of Ropivicaine 0.5% 150mg, Bupivicaine 0.5%/Epinephrine 1:200,000 30ml, Toradol 30mg, Dexamethasone 4mg, Ketamine 10mg, Clonidine 100mcg and NSS 30ml sollution. The pyriformis, external rotators and capsule were repaired to the greater trochanter through bone tunnels using #5 FiberWire. The fascia was closed using #1 Vicryl, subcutaneous tissue was closed using 2-0 Vicryl, and skin was closed with elvira and Provena incisional. The patient tolerated the procedure well and was taken to PACU in stable condition. Due to the complex nature of the procedure, the entire surgery was performed with the operational assistance of Joi Rhodes PA-C. The assistant professor of religion, under direct supervision, was involved in the actual performance of all aspects of the surgical procedure including hemostasis, tissue retraction and incision, instrument management, patient positioning, and wound closure. I attest to the content of the Intraoperative Record and any orders documented therein. Any exceptions are noted below. I attest to the content of the Intraoperative Record and any orders documented therein. Any exceptions are noted below.
--- NOTE | 2017-10-22 17:37 | Anesthesiology Progress Note ---
Anesthesia Post Op Note Date & Time Oct 22, 2017 at 17:37 Vital Signs Pain Intensity: 0 Vital Signs Past 12 Hours Date Time Temp Pulse Resp B/P (MAP) Pulse Ox O2 Delivery O2 Flow Rate FiO2 10/22/17 17:25 68 17 114/63 99 Oxymask 10 10/22/17 17:15 72 13 83/62 100 Oxymask 10 10/22/17 17:07 36.2 69 10 118/71 100 Oxymask 10 10/22/17 09:04 78 153/90 (111) 10/22/17 07:30 36.6 77 12 172/94 Room Air 10/22/17 06:18 70 18 155/95 97 Room Air Notes Mental Status: alert / awake / arousable, participated in evaluation Pt Amnestic to Procedure: Yes Nausea / Vomiting: adequately controlled Pain: adequately controlled Airway Patency, RR, SpO2: stable & adequate BP & HR: stable & adequate Hydration State: stable & adequate Neuraxial Anesthesia: was administered, sensory block is resolving Anesthetic Complications: no major complications apparent
--- NOTE | 2017-10-22 17:54 | DIAGNOSTIC IMAGING REPORT ---
L HIP UNILATERAL 2 VIEWS HISTORY: 71 years-old Male s/p Left ATIF for fracture status post left hip arthroplasty. Status post left hip fracture. Degenerative joint disease. COMPARISON: Pelvis radiograph 10/22/2017 TECHNIQUE: 2 views of the left hip FINDINGS: Postoperative changes from recent placement of a left total hip arthroplasty demonstrating satisfactory alignment. No periprosthetic fracture or malalignment. No retained foreign body. Lateral skin elvira are seen about the left hip. Expected postsurgical soft tissue swelling and deep tissue air. Bones appear mildly demineralized. IMPRESSION: Left hip arthroplasty in satisfactory alignment. The above report was generated using voice recognition software. It may contain grammatical, syntax or spelling errors. Electronically signed by: Yuniel Jung M.D. 10/22/2017 5:52 PM Dictated Date/Time: 10/22/2017 5:51 PM
--- NOTE | 2017-10-22 18:46 | Orthopedic Progress Note ---
Orthopedic Progress Note Date of Service Oct 22, 2017. Subjective Additional Notes: Patient seen in PACU, comfortable, no acute issues, still under spinal anesthesia. Objective NAD LLE Vacular intact, +2 DP pulse, compartments soft, dressing CDI, Abduction pillow in place. +spinal anesthesia. Date Time Temp Pulse Resp B/P (MAP) Pulse Ox O2 Delivery O2 Flow Rate FiO2 10/22/17 17:45 72 15 123/66 99 Nasal Cannula 2 10/22/17 17:35 36.0 69 14 128/65 100 Nasal Cannula 2 10/22/17 17:25 68 17 114/63 99 Oxymask 10 10/22/17 17:15 72 13 83/62 100 Oxymask 10 10/22/17 17:07 36.2 69 10 118/71 100 Oxymask 10 10/22/17 09:04 78 153/90 (111) 10/22/17 07:30 36.6 77 12 172/94 Room Air 10/22/17 06:18 70 18 155/95 97 Room Air 10/22/17 03:22 36.9 74 18 182/107 97 Room Air Laboratory Results 24 Hours: Test 10/22/17 04:00 10/22/17 05:41 White Blood Count 9.08 K/uL Red Blood Count 5.08 M/uL Hemoglobin 15.8 g/dL Hematocrit 46.4 % Mean Corpuscular Volume 91.3 fL Mean Corpuscular Hemoglobin 31.1 pg Mean Corpuscular Hemoglobin Concent 34.1 g/dl Platelet Count 195 K/uL Mean Platelet Volume 10.1 fL Neutrophils (%) (Auto) 77.9 % Lymphocytes (%) (Auto) 14.4 % Monocytes (%) (Auto) 6.6 % Eosinophils (%) (Auto) 0.1 % Basophils (%) (Auto) 0.3 % Neutrophils # (Auto) 7.07 K/uL Lymphocytes # (Auto) 1.31 K/uL Monocytes # (Auto) 0.60 K/uL Eosinophils # (Auto) 0.01 K/uL Basophils # (Auto) 0.03 K/uL Prothromb Time International Ratio 1.0 Prothrombin Time 10.4 SECONDS Assessment & Plan Assessment: s/p L ATIF for Left femoral neck fracture Plan: -Ancef x 24 -DVT PPT - ASA BID -Abduction pillow -Posterior hip precautions -WBAT LLE -PT/OT -DC blackwood POD #1 -Pain control -PO XR - well aligned, well fixed total hip prothesis, no fracture or dislocation -AM labs
[2017-10-22] MEDS: LORAZEPAM 0.5 MG TAB PO SCH (20:58)
[2017-10-22] MEDS: CEFAZOLIN IV 2,000 MG in SYRINGE 0 ML IV SCH (22:18)
[2017-10-22] MEDS: OXYCODONE HCL IR 5 MG TAB (IMMEDIATE RELEASE) PO PRN (23:37)
[2017-10-23] MEDS: SODIUM CHLORIDE 0.9% 1000ML 1,000 ML IV SCH (03:25)
[2017-10-23 03:30] VITALS: BP 144/77; PULSE 74; TEMP 36.5; O2SAT 97
[2017-10-23] MEDS: OXYCODONE HCL IR 5 MG TAB (IMMEDIATE RELEASE) PO PRN ×2 (05:14→13:52)
[2017-10-23] MEDS: CEFAZOLIN IV 2,000 MG in SYRINGE 0 ML IV SCH (05:15)
[2017-10-23 07:12] VITALS: BP 146/72; PULSE 82; TEMP 36.5; O2SAT 95
[2017-10-23 08:49] LABS: HEMATOCRIT 36.1 % (42-52); HEMOGLOBIN 11.8 g/dL (14.0-18.0); MEAN CELL VOLUME 92.1 fL (80-100); MEAN CORPUSCULAR HEMOGLOBIN 30.1 pg (25-34); MEAN CORPUSCULAR HGB CONC 32.7 g/dl (32-36); MEAN PLATELET VOLUME 9.7 fL (7.4-10.4); PLATELET COUNT 152 K/uL (130-400); RED CELL DISTRIBUTION WIDTH CV 14.5 % (11.5-14.5); RED CELL DISTRIBUTION WIDTH SD 48.8 fL (36.4-46.3); WHITE BLOOD COUNT 12.04 K/uL (4.8-10.8)
[2017-10-23 09:17] LABS: CALCIUM 8.2 mg/dl (8.5-10.1); CREATININE 0.9 mg/dl (0.60-1.40); POTASSIUM 4.2 mmol/L (3.5-5.1)
--- NOTE | 2017-10-23 09:33 | Orthopedic Progress Note ---
Orthopedic Progress Note Date of Service Oct 23, 2017. Subjective Post OP Day: 1 Reports: feeling well, pain controlled w PO medications, Denies: complaints, chest pain, SOB, nausea / vomiting, light headedness, calf pain Additional Notes: Patient seen sitting in bed, eating breakfast, comfortable, no acute issues overnight, pain well controlled. Objective LLE: NVSI +EHL/FHL/TA/GS SILT grossly, CR< 2 seconds, dressing CDI, compartments soft NT. Date Time Temp Pulse Resp B/P (MAP) Pulse Ox O2 Delivery O2 Flow Rate FiO2 10/23/17 07:15 Room Air 10/23/17 07:12 36.5 82 20 146/72 (96) 95 Room Air 10/23/17 03:30 36.5 74 16 144/77 (99) 97 Room Air 10/22/17 23:30 Room Air 10/22/17 22:54 36.4 69 16 103/64 (77) 95 Room Air 10/22/17 20:53 36.1 73 18 112/64 (80) 95 Room Air 10/22/17 20:00 36.3 72 18 123/73 (90) 96 Nasal Cannula 2.0 10/22/17 19:05 36.4 73 18 125/76 (92) 97 Nasal Cannula 2.0 10/22/17 18:00 Nasal Cannula 2.0 10/22/17 18:00 Nasal Cannula 2.0 10/22/17 17:45 72 15 123/66 99 Nasal Cannula 2 10/22/17 17:35 36.0 69 14 128/65 100 Nasal Cannula 2 10/22/17 17:25 68 17 114/63 99 Oxymask 10 10/22/17 17:15 72 13 83/62 100 Oxymask 10 10/22/17 17:07 36.2 69 10 118/71 100 Oxymask 10 Laboratory Results 24 Hours: Test 10/23/17 08:23 Hematocrit 36.1 % Hemoglobin 11.8 g/dL Assessment & Plan Assessment: s/p L ATIF for Left femoral neck fracture POD #1 Plan: -Ancef x 24 -DVT PPT - ASA BID -Abduction pillow -Posterior hip precautions -WBAT LLE -PT/OT -DC blackwood POD #1 -Pain control -PO XR - well aligned, well fixed total hip prothesis, no fracture or dislocation -AM labs - Hgb 11.8 -DC planing
[2017-10-23] MEDS: NYSTATIN CR 15 GM TUBE EXT SCH ×2 (09:53→21:25)
[2017-10-23] MEDS: ASPIRIN/ALUM/MAGNES/CAL CARB 325 MG TAB PO SCH ×2 (09:54→21:25)
[2017-10-23] MEDS: POTASSIUM CHLORIDE 10 MEQ TABCR PO SCH (09:55)
[2017-10-23] MEDS: PRAMIPEXOLE DIHYDROCHLORIDE 0.5 MG TAB PO SCH ×3 (09:55→21:26)
[2017-10-23] MEDS: ESCITALOPRAM OXALATE 10 MG TAB PO SCH (09:55)
[2017-10-23] MEDS: CEROVITE ADV FORMULA TAB PO SCH (09:56)
[2017-10-23] MEDS: PANTOprazole SOD 40 MG TAB PO SCH (09:56)
[2017-10-23] MEDS: AMANTADINE HCL 100 MG CAP PO SCH ×2 (09:57→21:26)
[2017-10-23] MEDS: DOCUSATE SODIUM/SENNA 50/8.6MG TAB PO SCH ×2 (09:57→21:26)
[2017-10-23] MEDS: CARBIDOPA/LEVODOPA 25/100MG TAB PO SCH ×3 (09:58→21:26)
[2017-10-23] MEDS: ACETAMINOPHEN 500 MG TAB PO SCH ×3 (09:59→22:04)
[2017-10-23 10:02] VITALS: BP 125/71; PULSE 101
[2017-10-23] MEDS: LISINOPRIL 10 MG TAB PO SCH (10:05)
[2017-10-23] MEDS: CEFTRIAXONE SOD INJ 1,000 MG in DEXTROSE 5% 50ML 50 ML IV SCH (10:06)
[2017-10-23 11:58] VITALS: BP 104/67; PULSE 101; TEMP 36.6; O2SAT 96
--- NOTE | 2017-10-23 13:13 | Hospitalist Progress Note ---
Hospitalist Progress Note Date of Service Oct 23, 2017. Subjective Pt evaluation today including: conversation w/ patient, physical exam, chart review, lab review, review of inpatient medication list Pain: 2/10 aching pain left hip PO Intake: Tolerating PO diet Voiding: no voiding problems Patient reports feeling well. He does complain of a 2/10 pain in his left hip that is worse with movement. He otherwise denies complaints. He is passing gas , urinating and eating without difficulty postop. He has not yet had a bowel movement, but thinks he may today. The patient denies fevers, chills, sweats, chest pain, palpitations, claudication, cough, wheezing, shortness of breath, nausea, vomiting, abdominal pain, dysuria, hematuria, urinary retention, paralysis, weakness, numbness and tingling. Additional Comments: See HPI for pertinent positives and negatives. All other systems reviewed and negative. Objective Vital Signs Date Time Temp Pulse Resp B/P (MAP) Pulse Ox O2 Delivery O2 Flow Rate FiO2 10/23/17 11:58 36.6 101 20 104/67 (79) 96 Room Air 10/23/17 10:02 101 125/71 (89) 10/23/17 07:15 Room Air 10/23/17 07:12 36.5 82 20 146/72 (96) 95 Room Air 10/23/17 03:30 36.5 74 16 144/77 (99) 97 Room Air 10/22/17 23:30 Room Air 10/22/17 22:54 36.4 69 16 103/64 (77) 95 Room Air 10/22/17 20:53 36.1 73 18 112/64 (80) 95 Room Air 10/22/17 20:00 36.3 72 18 123/73 (90) 96 Nasal Cannula 2.0 10/22/17 19:05 36.4 73 18 125/76 (92) 97 Nasal Cannula 2.0 10/22/17 18:00 Nasal Cannula 2.0 10/22/17 18:00 Nasal Cannula 2.0 10/22/17 17:45 72 15 123/66 99 Nasal Cannula 2 10/22/17 17:35 36.0 69 14 128/65 100 Nasal Cannula 2 10/22/17 17:25 68 17 114/63 99 Oxymask 10 2/6/18 17:15 72 13 83/62 100 Oxymask 10 10/22/17 17:07 36.2 69 10 118/71 100 Oxymask 10 Physical Exam Notes: General appearance: Well-developed, well-nourished, no apparent distress Head: Normocephalic, atraumatic Eyes: Normal inspection, PERRL, EOMI ENT: Normal ENT inspection, hearing grossly normal, pharynx normal Neck: Supple, no JVD, trachea midline Respiratory/Chest: Lungs clear to auscultation, normal breath sounds, no respiratory distress Cardiovascular: Regular rate & rhythm, no gallop, no murmur Abdomen/GI: Normal bowel sounds, non-tender, soft Extremities/Musculoskeletal: +Left hip TTP. Mild erythema anterior lower legs. No calf tenderness, no pedal edema Neurological/Psych: Alert, normal mood/affect, oriented x 3 Skin: Normal color, warm/dry, no rash Laboratory Results Last 24 Hours Test 10/23/17 08:23 White Blood Count 12.04 K/uL Red Blood Count 3.92 M/uL Hemoglobin 11.8 g/dL Hematocrit 36.1 % Mean Corpuscular Volume 92.1 fL Mean Corpuscular Hemoglobin 30.1 pg Mean Corpuscular Hemoglobin Concent 32.7 g/dl RDW Standard Deviation 48.8 fL RDW Coefficient of Variation 14.5 % Platelet Count 152 K/uL Mean Platelet Volume 9.7 fL Sodium Level 135 mmol/L Potassium Level 4.2 mmol/L Chloride Level 101 mmol/L Carbon Dioxide Level 27 mmol/L Anion Gap 7.0 mmol/L Blood Urea Nitrogen 22 mg/dl Creatinine 0.90 mg/dl Est Creatinine Clear Calc Drug Dose 94.1 ml/min Estimated GFR () 99.9 Estimated GFR (Non- 86.2 BUN/Creatinine Ratio 24.4 Random Glucose 114 mg/dl Calcium Level 8.2 mg/dl Assessment and Plan 71 y/o male with a history of HTN, HLD, Parkinson's disease, and anxiety who presents following a mechanical fall and left hip fracture. Left hip fracture s/p left ATIF--POD #1 -Admit to med/surg -Ortho on board, appreciate recs: ASA BID for DVT ppx. WBAT. -Continue morphine 4 mg IV q4h prn pain, oxycodone IR 5 mg PO q4h prn pain -PT/OT evaluate and treat, recommend acute rehab -Referral to [facility] pending -Hgb 11.8 on 10/23, down from 15.8. Continue to monitor Lower extremity cellulitis--completed 1 course abx as outpatient, recently started 2nd course [employer] [employer] -Continue Rocephin 1 gm IV qd HTN, HLD--stable -Continue lisinopril 10 mg PO qd Parkinson's disease--stable -Continue Sinemet 25/100 2 tabs PO TID, amantadine 100 mg PO BID, Mirapex 1 mg PO TID Anxiety -Continue Lexapro 10 mg PO qd, Ativan 0.25 mg PO hs DVT prophylaxis -ASA BID -ADELA pearl and Karlo Code Status -Level I, FULL RESUSCITATION STATUS Dispo -From the [facility] -PT/OT recommend rehab, [facility] pending
[2017-10-23 14:47] VITALS: BP 113/69; PULSE 82; TEMP 36.6; O2SAT 95
[2017-10-23] MEDS: LORAZEPAM 0.5 MG TAB PO SCH (21:25)
[2017-10-23 22:48] VITALS: BP 121/71; PULSE 78; TEMP 36.5; O2SAT 95
[2017-10-24] MEDS: OXYCODONE HCL IR 5 MG TAB (IMMEDIATE RELEASE) PO PRN ×2 (00:31→07:28)
[2017-10-24 07:13] VITALS: BP 132/78; PULSE 73; TEMP 37.3; O2SAT 95
[2017-10-24 07:40] LABS: HEMATOCRIT 34.3 % (42-52); HEMOGLOBIN 11.5 g/dL (14.0-18.0); MEAN CORPUSCULAR HEMOGLOBIN 30.5 pg (25-34); MEAN CORPUSCULAR HGB CONC 33.5 g/dl (32-36); MEAN PLATELET VOLUME 9.7 fL (7.4-10.4); PLATELET COUNT 139 K/uL (130-400); RED CELL DISTRIBUTION WIDTH CV 14.3 % (11.5-14.5); RED CELL DISTRIBUTION WIDTH SD 47.4 fL (36.4-46.3); WHITE BLOOD COUNT 10.34 K/uL (4.8-10.8)
--- NOTE | 2017-10-24 08:06 | Orthopedic Progress Note ---
Orthopedic Progress Note Date of Service Oct 24, 2017. Subjective Post OP Day: 2 Reports: feeling well, Denies: chest pain, SOB, nausea / vomiting, light headedness, calf pain Objective calves soft nontender, N/V intact, hip located, dressing C/D/I (SILVERLON), A&O x3, toes mobile Date Time Temp Pulse Resp B/P (MAP) Pulse Ox O2 Delivery O2 Flow Rate FiO2 10/24/17 07:25 Room Air 10/24/17 07:13 37.3 73 18 132/78 (96) 95 Room Air 10/24/17 00:00 Room Air 10/23/17 22:48 36.5 78 16 121/71 (88) 95 Room Air 10/23/17 15:20 Room Air 10/23/17 14:47 36.6 82 16 113/69 (84) 95 Room Air 10/23/17 11:58 36.6 101 20 104/67 (79) 96 Room Air 10/23/17 10:02 101 125/71 (89) Laboratory Results 24 Hours: Test 10/23/17 08:23 10/24/17 07:30 Hematocrit 36.1 % 34.3 % Hemoglobin 11.8 g/dL 11.5 g/dL Assessment & Plan Assessment: s/p L ATIF for Left femoral neck fracture POD #2 Plan: -Ancef x 24 -DVT PPT - ASA BID -Abduction pillow -Posterior hip precautions -WBAT LLE -PT/OT -Pain control -PO XR - well aligned, well fixed total hip prothesis, no fracture or dislocation -AM labs - Hgb 11.8 -DC planing - REFERRAL PLACED TO AT [facility]. PT/OT EVALS ORDERED. AWAITING ACCEPTANCE AND PLACEMENT. HEEL PRECAUTIONS
[2017-10-24] MEDS: DOCUSATE SODIUM/SENNA 50/8.6MG TAB PO SCH (09:13)
[2017-10-24] MEDS: AMANTADINE HCL 100 MG CAP PO SCH (09:13)
[2017-10-24] MEDS: ESCITALOPRAM OXALATE 10 MG TAB PO SCH (09:13)
[2017-10-24] MEDS: CEROVITE ADV FORMULA TAB PO SCH (09:13)
[2017-10-24] MEDS: LISINOPRIL 10 MG TAB PO SCH (09:13)
[2017-10-24] MEDS: ASPIRIN/ALUM/MAGNES/CAL CARB 325 MG TAB PO SCH (09:13)
[2017-10-24] MEDS: ACETAMINOPHEN 500 MG TAB PO SCH ×2 (09:13→14:00)
[2017-10-24] MEDS: CARBIDOPA/LEVODOPA 25/100MG TAB PO SCH ×2 (09:14→14:00)
[2017-10-24] MEDS: PRAMIPEXOLE DIHYDROCHLORIDE 0.5 MG TAB PO SCH ×2 (09:14→14:00)
[2017-10-24] MEDS: NYSTATIN CR 15 GM TUBE EXT SCH (09:14)
[2017-10-24] MEDS: POTASSIUM CHLORIDE 10 MEQ TABCR PO SCH (09:15)
[2017-10-24] MEDS: CEFTRIAXONE SOD INJ 1,000 MG in DEXTROSE 5% 50ML 50 ML IV SCH (09:15)
[2017-10-24] MEDS: PANTOprazole SOD 40 MG TAB PO SCH (09:15)
[2017-10-24 11:10] VITALS: BP 97/61; PULSE 77; TEMP 36.8; O2SAT 95
[2017-10-24 12:20] VITALS: BP 97/61; PULSE 77; TEMP 36.8; O2SAT 95
[2017-10-24] MEDS ORDERED: ESCI1TAB9 PO (12:42)
[2017-10-24] MEDS ORDERED: RXC5 PO (12:43)
--- NOTE | 2017-10-24 12:57 | Discharge Instructions ---
Discharge Instructions Date of Service Oct 24, 2017. Admission Reason for Admission: Hip Fracture,Left Discharge Discharge Diagnosis / Problem: Left hip fracture following mechanical fall Discharge Goals Goal(s): Decrease discomfort, Improve function, Diagnostic testing, Therapeutic intervention Activity Recommendations Activity Level: Assistance Required Therapies: Physical Therapy, Occupational Therapy Weightbearing Status: Left weightbearing (left lower extremity as tolerated) . Additional Information Patient informed of condition: Yes Advance Directives: Yes DNR: No Level of Care: Acute Rehab Communicable Disease: Yes Prognosis: Stable [place] Catheter: No Instructions / Follow-Up Instructions / Follow-Up The patient presented to the hospital following a mechanical fall. He was found to have a left hip fracture. He underwent uncemented left total hip arthroplasty with Dr. Hanna on 10/22. Physical and occupational therapy evaluated, recommend acute rehab. Otherwise doing well. Medications: *STOP Bactroban cream for questionable lower extremity cellulitis. *Can take oxycodone IR 5 mg PO q4h prn pain. *Aspirin 325 mg PO BID x 4 weeks, then resume 81 mg PO daily. *Continue other home medications as prescribed. Follow up: *Follow up with primary care provider within 1 week following discharge. Follow up with orthopedics in 2-3 weeks. Please seek medical attention if patient experiences fevers, chills, sweats, dizziness/lightheadedness, loss of consciousness, chest pain, shortness of breath, nausea, vomiting, numbness or tingling. Current Hospital Diet Patient's current hospital diet: AHA Diet (Heart Healthy) Discharge Diet Recommended Diet: AHA Diet (Heart Healthy) Procedures Procedures Performed: Left Total Hip Arthroplasty-Uncemented Pending Studies Studies pending at discharge: no Physician Orders On Transfer Special Precautions: Posterior hip precautions, weight bear as tolerated left lower extremity Fall precautions Dressing Changes: Left hip daily or prn Vital Signs: Routine Laboratory Results Lipid Panel Test 08/19/17 09:48 Range/Units Triglycerides Level 82 0-150 mg/dl Cholesterol Level 127 0-200 mg/dl HDL Cholesterol 39 mg/dl Cholesterol/HDL Ratio 3.3 LDL Cholesterol, Calculated 72 mg/dl Medical Emergencies . Who to Call and When: Medical Emergencies: If at any time you feel your situation is an emergency, please call 911 immediately. . Non-Emergent Contact Non-Emergency issues call your: Primary Care Provider, Surgeon (orthopedics) Call Non-Emergent contact if: you have a fever, your pain is not controlled, your pain is worsening, your pain is unusual for you, your pain is concerning you, wound has increased drainage, wound has increased redness, wound has increased pain, you have any medication questions . Past History Medical & Surgical History: (1) Hip fracture, left . "Provider Documentation" section prepared by Jennie Luo. . Core Measure Problem Core Measures: None [place] Drug Monitoring Program Search Results: patient reviewed within database, no issues identified
[2017-10-24] MEDS ORDERED: ASPI325T60 PO (12:58)
--- NOTE | 2017-10-24 13:12 | Discharge Summary ---
Discharge Summary Date of Service Oct 24, 2017. Discharge Summary Admission Date: Oct 22, 2017 at 06:15 Discharge Date: Oct 24, 2017 Discharge Disposition: Rehab Principal Diagnosis: Left hip fracture Problems/Secondary Diagnoses: HTN, HLD, Parkinson's disease, depression/anxiety Immunizations: Have You Had Influenza Vaccine: Yes History of Tetanus Vaccine?: Yes History of Pneumococcal: Yes History of Hepatitis B Vaccine: No Procedures: L FEMUR 2 VIEWS ROUTINE CLINICAL HISTORY: 71 years-old Male presenting with fall, left hip injury. TECHNIQUE: Frontal and crosstable lateral views of the left femur were obtained. COMPARISON: None. FINDINGS: Mildly displaced transcervical fracture of the left femoral neck. The distal fracture fragment is slightly impacted and displaced proximally. No significant angulation at the fracture site. The left femoral head remains congruent within the hip joint. Osteopenia is present. Degenerative changes at the left knee. IMPRESSION: Mildly displaced and impacted transcervical left femoral neck fracture. Immediate Operative Summary Operative Date Oct 22, 2017. Pre-Operative Diagnosis Left displaced femoral neck fracture Post-Operative Diagnosis Left displaced femoral neck fracture Procedure(s) Performed Left Total Hip Arthroplasty-Uncemented Surgeon Dr. Hanna Trend Investigator Surgeon(s) Kati Rhodes PA-C Estimated Blood Loss 250ml Findings Consistent with Post-Op Diagnosis Fluids (cc crystalloids) 2000 Specimens a. Left Femoral Head Drains None Anesthesia Type MAC Spinal Regional Complication(s) none Disposition Disposition: Recovery Room / PACU Consultations: Orthopedic surgery Medication Reconciliation New Medications: Aspirin Buffered (Thor Carb-Mag (Tri-Buffered Aspirin) 1 Tab Tab 325 MG PO BID for 28 Days, #56 TAB Oxycodone HCl (Oxycodone HCl) 5 Mg Tab 5 MG PO Q4H PRN for Pain for 3 Days, #12 TAB Continued Medications: Acetaminophen (Tylenol) 500 Mg Tab 1000 MG PO TID, TAB Amantadine Hcl (Amantadine Hcl) 100 Mg Cap 100 MG PO BID, CAP Aspirin (Aspirin Chewable) 81 Mg Chew 81 MG PO QAM, TAB Carbidopa/Levodopa (Sinemet 25MG/100MG) Tab 2 TAB PO TID, TAB Escitalopram Oxalate (Lexapro) 10 Mg Tab 1 TAB PO DAILY for 30 Days, #30 TAB 3 Refills Fenofibrate (Lofibra) 160 Mg Tab 1 TAB PO QAM Lisinopril (Zestril) 10 Mg Tab 10 MG PO DAILY, TAB Lorazepam (Ativan) 0.5 Mg Tab 0.5 TAB PO HS, TAB Magnesium Hydroxide (Milk of Magnesia) 30 Ml Susp 30 ML PO PRN PRN for Constipation Multiple Vitamins W/ Minerals (Centrum Silver Adult 50+) 1 Tab Tab 1 TAB PO QAM Nystatin (Topical) (Nystop) 100,000 Unit/Gm Pow 1 APPLN TOP TID Omeprazole (Omeprazole) 20 Mg Tab 1 TAB PO QAM, TAB Potassium Chloride (Micro-K Ext Rel) 10 Meq Capcr 10 MEQ PO DAILY, CAP Pramipexole Dihydrochloride (Pramipexole Dihydrochlori) 1 Mg Tab 1 TAB PO TID Sennosides-Docusate Sodium (Stool Softener) 1 Tab Tab PO QAM Tadalafil (Cialis) 10 Mg Tab 10 MG PO UD, TAB Zolpidem Tartrate (Ambien) 10 Mg Tab 1 TAB PO HS PRN for Insomnia for 30 Days, #30 TAB 5 Refills Discontinued Medications: Mupirocin 2% (Bactroban 2%) 30 Gm Cr 1 APPLN EXT TID, TUBE Discharge Exam Patient reports feeling well. He does complain still of 2/10 aching pain in the left hip at rest, worse with walking/moving. He is passing gas and urinating without difficulty. He is eating well. He has not had a bowel movement yet postop but feels that he might go today. The patient denies fevers , chills, sweats, chest pain, palpitations, claudication, cough, wheezing, shortness of breath, nausea, vomiting, abdominal pain, dysuria, hematuria, urinary retention, paralysis, weakness, numbness and tingling. Constitutional: No fever, No chills, No sweats Eyes: No worsening of vision, No eye pain, No diplopia ENT: No hearing loss, No nasal symptoms, No trouble swallowing Respiratory: No cough, No wheezing, No shortness of breath Cardiovascular: No chest pain, No claudication, No palpitations Abdomen: No pain, No nausea, No vomiting Musculoskeletal: +Left hip pain. No muscle pain, No swelling Genitourinary - Male: No dysuria, No urinary retention, No hematuria Neurologic: No paralysis, No weakness, No numbness/tingling Integumentary: No rash, No itch, No color change General appearance: Well-developed, well-nourished, no apparent distress Head: Normocephalic, atraumatic Eyes: Normal inspection, PERRL, EOMI ENT: Normal ENT inspection, hearing grossly normal, pharynx normal Neck: Supple, no JVD, trachea midline Respiratory/Chest: Lungs clear to auscultation, normal breath sounds, no respiratory distress Cardiovascular: Regular rate & rhythm, no gallop, no murmur Abdomen/GI: Normal bowel sounds, non-tender, soft Extremities/Musculoskeletal: +Left hip TTP. Minimal erythema anterior lower legs. No calf tenderness, no pedal edema Neurological/Psych: Alert, normal mood/affect, oriented x 3 Skin: Normal color, warm/dry, no rash Hospital Course 71 y/o male with a history of HTN, HLD, Parkinson's disease, and depression/ anxiety who presents following a mechanical fall and left hip fracture. Left hip fracture s/p left ATIF--POD #2 -Admit to med/surg -Ortho on board, appreciate recs: ASA BID for DVT ppx. WBAT. -Continue ASA 325 mg PO BID x 4 weeks for DVT ppx, then resume home dose of 81 mg PO qd -Continue morphine 4 mg IV q4h prn pain, oxycodone IR 5 mg PO q4h prn pain. D/ C with script for the oxy IR x 3d -PT/OT evaluate and treat, recommend acute rehab -Accepted to [facility] -Hgb remains stable at 11.5 Lower extremity cellulitis--resolved. Completed 1 course abx as outpatient, recently started 2nd course PIPE STEM SAWYER -D/C Rocephin and Bactroban cream. Very minimal erythema noted, no swelling or tenderness. HTN, HLD--stable -Continue lisinopril 10 mg PO qd Parkinson's disease--stable -Continue Sinemet 25/100 2 tabs PO TID, amantadine 100 mg PO BID, Mirapex 1 mg PO TID Anxiety -Continue Lexapro 10 mg PO qd, Ativan 0.25 mg PO hs DVT prophylaxis -ASA BID -ADELA hose and SCDs Code Status -Level I, FULL RESUSCITATION STATUS Dispo -From the [facility] -PT/OT recommend rehab, [facility] accepted Total Time Spent: Greater than 30 minutes This includes examination of the patient, discharge planning, medication reconciliation, and communication with other providers. Discharge Instructions Please refer to the electronic Patient Visit Report (Discharge Instructions) for additional information. [facility] To [facility]ar[facility]; Milad Boyle M.D.
== END 2017-10-24 15:30 | DRG 470 ==
LOC: EDBD 03:13 → C.EDB 03:15 → C.MSN 06:15 → ENRESERV 06:32
PROVIDERS: ADMIT Student in an Organized Health Care Education/Training Program; ATTEND Internal Medicine
PROC: 0SRB0JA Replacement of Left Hip Joint with Synthetic Substitute, Uncemented, Open Approach (ICD-10-PCS; principal; 2017-10-22 07:00)
DX: S72.002A Fracture of unspecified part of neck of left femur, initial encounter for closed fracture (principal); L03.116 Cellulitis of left lower limb; I10 Essential (primary) hypertension; E78.5 Hyperlipidemia, unspecified; F32.9 Major depressive disorder, single episode, unspecified; R21 Rash and other nonspecific skin eruption; G31.83 Neurocognitive disorder with Lewy bodies; F02.80 Dementia in other diseases classified elsewhere, unspecified severity, without behavioral disturbance, psychotic disturbance, mood disturbance, and anxiety; I25.10 Atherosclerotic heart disease of native coronary artery without angina pectoris; Z79.82 Long term (current) use of aspirin; Z79.899 Other long term (current) drug therapy; Z98.890 Other specified postprocedural states; W18.30XA Fall on same level, unspecified, initial encounter; Y92.039 Unspecified place in apartment as the place of occurrence of the external cause

== ENCOUNTER 2017-11-19 01:00 | Emergency (ER) | payer OTHER ==
[~2017-11-19] VITALS: Ht 185.4 cm; Wt 107.0 kg
[~2017-11-19 01:00] MED LIST changes: +AMOX875T PO; +ASPI325T60 PO; -BCTCR/30 EXT; +ESCI1TAB9 PO; -ESCI5TAB PO; -FURO-85 PO; +PRAM1TAB10 PO; -PRAM1TAB6 PO; -PROB1TAB16 PO; +RXC5 PO
[2017-11-19 01:17] VITALS: TEMP 36.8; Ht 185.4 cm; Wt 107.0 kg
[2017-11-19] MEDS ORDERED: CEFAZOLIN SOD 1 GM VIAL IM STA (01:33)
--- NOTE | 2017-11-19 02:03 | EMERGENCY ROOM VISIT NOTE ---
History Report prepared by Pj: Leah Rodarte Under the Supervision of: Dr. Loli John D.O. First contact with patient: 01:20 Chief Complaint: LACERATION/CUT (SUT/DERMABOND) Stated Complaint: FINGER LACERATION Nursing Triage Summary: patient from [place], hx of alzheimers and parkinsons. tonight was found to have lac on right thumb, patient unable to recall how it occurred. patient denies any other symptoms or complaints at this time. patient with abrasion to left forehead with dressing, states he fell a few days ago History of Present Illness The patient is a 71 year old male who presents to the Emergency Room with complaints of an episode of a laceration occurring 3 days ago. Per nursing staff , the patient is from the [place] and has a history of Parkinson and Alzheimer. They report that he was found tonight with a laceration on the right thumb that neither the patient nor the home knows what happened. They note that the patient is reported to be at baseline. The patient states that he has had two falls out of bed, one four days ago and the other two days ago. He reports that he noticed the cut a few days ago. He states that he has an abrasion on his head from the falls. The patient complains of rib pain from catching a football and chronic right leg pain. The patient denies pain in his shoulders and notes that the cut is not from an animal. The patient notes that he is left handed and has had a Tetanus shot in the last 10 years. Source of History: patient, nursing staff Onset: 3 days ago Position: finger(s) Quality: other (laceration) Timing: other (episode) Note: The patient complains of rib pain and leg pain. The patient denies shoulder pain. Review of Systems See HPI for pertinent positives & negatives. A total of 10 systems reviewed and were otherwise negative. Past Medical & Surgical Medical Problems: (1) Alzheimer disease (2) Hip fracture, left (3) Parkinson disease Family History Patient reports no known family medical history. Social History Smoking Status: Never Smoker Drug Use: marijuana Marital Status: single Housing Status: long term Current/Historical Medications Scheduled Amantadine Hcl (Amantadine Hcl), 100 MG PO BID Amoxicillin & Pot Clavulanate (Augmentin 875-125 mg), 1 TAB PO Q12 Aspirin (Aspirin Chewable), 81 MG PO BID Carbidopa/Levodopa (Sinemet 25MG/100MG), 2 TAB PO TID Cephalexin Monohydrate (Keflex), 500 MG PO QID Fenofibrate (Tricor), 160 MG PO DAILY Lidocaine (Lidocaine), 1 PATCH TOP QAM Lisinopril (Zestril), 10 MG PO DAILY Lorazepam (Ativan), 0.5 TAB PO HS Multiple Vitamins W/ Minerals (Therems M), 1 TAB PO DAILY Omeprazole (Omeprazole), 1 TAB PO QAM Potassium Chloride (Micro-K Ext Rel), 10 MEQ PO DAILY Pramipexole Dihydrochloride (Pramipexole Dihydrochlori), 1 TAB PO TID Scheduled PRN Acetaminophen (Tylenol), 500 MG PO Q4 PRN for Pain Zolpidem Tartrate (Ambien), 10 MG PO HS PRN for Sleep Allergies Coded Allergies: Iodinated Diagnostic Agents (Verified Allergy, Unknown, SKIN FLUSHES, ) Physical Exam Vital Signs Date Time Temp Pulse Resp B/P (MAP) Pulse Ox O2 Delivery O2 Flow Rate FiO2 11/19/17 04:50 86 20 123/64 96 11/19/17 03:53 96 20 127/77 98 Room Air 11/19/17 02:13 87 18 143/76 96 Room Air 11/19/17 01:17 36.8 88 20 148/71 93 Room Air Physical Exam GENERAL: Awake, alert, well appearing, no acute distress, pleasantly demented HEAD: Normocephalic, abrasion noted to left lateral forehead. No mccloud sign. No raccoon eyes. EYES: Normal conjunctiva. PERRL. EARS: External ears normal. Right TM normal. Left TM normal. NOSE: Atraumatic OROPHARYNX: Lips, tongue, and mucosa unremarkable. No erythema or exudate. NECK: Supple. No nuchal rigidity. FROM. No tracheal deviation or JVD. No posterior midline tenderness. No step offs noted. RESPIRATORY: CTA bilaterally, no w/r/r. CARDIAC: Regular rate, normal rhythm. ABDOMEN: Inspection reveals no abnormalities. Soft, non distended. No tenderness to palpation. No hernias. BACK: No midline step offs or tenderness to palpation. Unremarkable. PELVIS: Stable to rock. SKIN: Normal. No rash/sores. LYMPH: No adenopathy. MUSCULOSKELETAL: Upper and lower extremities are atraumatic. Normal pulses in UE and LE. No signs of deformity in UE and LE. Tenderness along left lateral rib. No crepitus. Small area of resolving ecchymosis. Bilateral knees have appearance of healing abrasions, left greater than right. Right thumb in the ventral aspect of IP has 1 cm healing laceration. Patient with full active and passive ROM. No apparent tendon injury on exam. No obvious drainage or bleeding. Mild surrounding erythema. No foul odor. Left great toe with chronic appearing ulcer/callous. No surrounding erythema, no increased warmth, no fluctuance or drainage. NEURO: Pleasantly demented. Patient moves all four extremities spontaneously. Medical Decision & Procedures ER Provider Diagnostic Interpretation: Radiology results have been interpreted by the radiologist and reviewed by me. RIB/CHEST X-RAY: The results were interpreted by me. No acute fracture. No pneumothorax. Cardiomegaly noted. No effusion. No focal infiltrate. No wide mediastinum. FINGER (THUMB) X-RAY: The results were interpreted by me. No acute fracture or dislocation. No foreign body. CT HEAD: No acute intracranial hemorrhage, mass, or shift in midline structure. Subcortical hypoattenuation within the right frontal lobe may be related to prior trauma/contusion injury, or microvascular ischemic change. Age-related cerebral atrophy. Mucosal thickening left maxillary sinus. Radiologist: Morales Gomez MD Study ready at 02:07 and initial results transmitted at 02:26. CT C-SPINE: No evidence of fracture or subluxation. Moderate multilevel cervical spondylosis, most significant at the C5-C6 and C6- C7 levels. Radiologist: Morales Gomez MD Study ready at 02:07 and initial results transmitted at 02:28. Medications Administered Medications (Trade) Dose Ordered Sig/Alison Route Start Time Stop Time Status Last Admin Dose Admin Cefazolin Sodium (Ancef Inj) 1,000 mg NOW STAT IM 11/19/17 01:33 11/19/17 01:35 DC 11/19/17 01:49 1,000 MG Diphtheria/ Pertussis/Tetanus Vacc (Adacel Inj) 0.5 ml ONCE ONCE IM. 11/19/17 02:30 11/19/17 02:31 DC 11/19/17 03:07 0.5 ML ED Course 0120: The patient was evaluated in room B6. A complete history and physical exam was performed. 0133: Ordered Ancef Inj 1000 mg IM. 0230: Ordered Adacel Inj 0.5 ml IM. 0331: I reevaluated the patient and reexamined his toe per request of the [facility]. It appears to be chronic to me. I discussed the findings and the treatment plan with the patient. He verbalizes agreement and understanding. The patient was discharged home. Medical Decision Differential diagnosis: Etiologies such as fracture, dislocation, intra-abdominal, pneumothorax, intrathoracic , intracranial, neurologic, as well as other traumatic pathologies were entertained. Patient is a pleasantly demented male sent in by the long term for possible need of laceration repair following a recent fall. Patient states he fell twice within the preceding week, denies any new falls tonight. However laceration was never noted until this evening. Patient is a poor historian in light of recent dementia despite being very cooperative, so imaging performed to apparent areas of trauma. No significant injury was identified, patient had no apparent distress, was hemodynamically stable throughout. Patient will require follow-up regarding the resolving laceration noted to the right thumb as well as the chronic appearing area to the left great toe. Patient started on antibiotics as a precaution due to some very mild appearing erythema surrounding the small laceration to the right thumb, I do not suspect tenosynovitis, patient had full tendon function on exam, no fusiform swelling, no tenderness with passive flexion. I have a low suspicion for any additional occult traumatic injury. Patient returned to long term facility. And were advised of results and recommendations. Discussed with him close follow-up with family doctor and potentially with orthopedics, discussed symptoms to watch and return for. Medication Reconcilliation Current Medication List: was personally reviewed by me Blood Pressure Screening Patient's blood pressure: Elevated blood pressure Blood pressure disposition: Elevated BP felt to be situational Impression Primary Impression: Laceration Additional Impressions: Abrasion Fall Cellulitis Scribe Attestation The scribe's documentation has been prepared under my direction and personally reviewed by me in its entirety. I confirm that the note above accurately reflects all work, treatment, procedures, and medical decision making performed by me. Departure Information Dispostion Home / Self-Care Prescriptions Cephalexin Monohydrate (Keflex) 500 Mg Cap 500 MG PO QID, #28 CAP Prov: Loli John, DO 3/6/18 Referrals Pro,Milad Lazaro M.D. (PCP) Forms HOME CARE DOCUMENTATION FORM, IMPORTANT VISIT INFORMATION Patient Instructions My [facility] [place] [facility] Additional Instructions Please continue your regular medications as prescribed. Please have your family doctor recheck the laceration on your finger to make sure that it is improving and healing appropriately. Please follow-up with podiatry or with wound care regarding the callus/ulceration noted on your left big toe. Please be careful when changing positions or walking. Please use protective side rails when sleeping so that you do not roll out of bed again. If you feel unsteady on your feet please use a cane or walker to help prevent falls. Please take the antibiotic as prescribed. If you have any increased pain, develop increased redness, drainage, decreased movement around the right thumb where the laceration is, or otherwise develop fevers or chills, headaches, vision changes, dizziness, trouble breathing, you have any other new concerns, please return to the emergency room. Problem Qualifiers Additional Impressions: Fall Encounter type: initial encounter Qualified Codes: W19.XXXA - Unspecified fall, initial encounter Cellulitis Site of cellulitis: extremity Site of cellulitis of extremity: finger Laterality: right Qualified Codes: L03.011 - Cellulitis of right finger
[2017-11-19] MEDS ORDERED: DIPHTHERIA/TETANUS/PERTUSSIS 0.5 ML SYR/VIAL IM. ONE (02:30)
[2017-11-19] MEDS ORDERED: FENO160T PO (02:49)
[2017-11-19] MEDS ORDERED: MULTTAB63 PO (02:55)
[2017-11-19] MEDS ORDERED: LDDP5 TOP (02:57)
[2017-11-19] MEDS ORDERED: CEPH500C PO (03:42)
[2017-11-19 04:50] VITALS: BP 123/64; PULSE 86; O2SAT 96
--- NOTE | 2017-11-19 06:37 | DIAGNOSTIC IMAGING REPORT ---
HEAD WITHOUT CONTRAST (CT) CLINICAL HISTORY: 71 years-old Male with fall, dementia. Acute head injury status post fall. TECHNIQUE: Multiple axial CT images of the head were obtained without contrast. A dose lowering technique was utilized adhering to the principles of ALARA. CT DOSE: 1264.96 mGy.cm COMPARISON: None. FINDINGS: No acute intracranial hemorrhage, midline shift, intracranial mass, hydrocephalus, territorial ischemia or abnormal extra-axial collection. Patchy areas of low-attenuation are noted within the right frontal lobe near the vertex extending towards the periventricular region with less extensive hypoattenuation noted within the left parafalcine frontal lobe. Mild atrophy. Additional ill-defined areas of low-attenuation within the periventricular white matter compatible with chronic microvascular ischemic changes. The calvarium is intact. Mastoid air cells and middle ear cavities are clear. Mild to moderate mucosal thickening with air-fluid level of the left maxillary sinus suggesting acute sinus disease. Soft tissues are unremarkable. Orbits are symmetric. IMPRESSION: 1. No acute intracranial abnormality identified. 2. Mild atrophy with chronic microvascular ischemic changes. 3. Ill-defined areas of white matter hypoattenuation within the right frontal lobe near the vertex within a subcortical distribution suggest encephalomalacia from remote insult. The above report was generated using voice recognition software. It may contain grammatical, syntax or spelling errors. Electronically signed by: Yuniel Jung M.D. 11/19/2017 6:36 AM Dictated Date/Time: 11/19/2017 6:30 AM
--- NOTE | 2017-11-19 06:43 | DIAGNOSTIC IMAGING REPORT ---
L RIBS UNILATERAL WITH PA CHEST HISTORY: 71 years-old Male fall, pain acute atypical chest pain status post fall. Pain is most pronounced within the left ribs. COMPARISON: Chest radiograph 08/30/2015 TECHNIQUE: AP view of the chest with 5 views of the left ribs FINDINGS: Cardiac silhouette is upper limits of normal in size, unchanged. Atherosclerosis of the aorta. Linear subsegmental left basilar opacities suggest atelectasis or scarring. There is no pneumothorax, large pleural effusion, or overt pulmonary edema. Degenerative changes are noted about the shoulders and spine. No acute displaced rib fracture identified. IMPRESSION: 1. Subsegmental atelectasis of the left lung base without acute process of the chest. 2. No acute displaced rib fracture identified. The above report was generated using voice recognition software. It may contain grammatical, syntax or spelling errors. Electronically signed by: Yuniel Jung M.D. 11/19/2017 6:42 AM Dictated Date/Time: 11/19/2017 6:39 AM
--- NOTE | 2017-11-19 07:09 | DIAGNOSTIC IMAGING REPORT ---
CT SCAN OF THE CERVICAL SPINE CLINICAL HISTORY: Fall. COMPARISON STUDY: Radiographs of the cervical spine dated 01/27/2015. TECHNIQUE: CT scan of the cervical spine is performed from the skull base to the upper thoracic spine. Images are reviewed in the axial, sagittal, and coronal planes. IV contrast was not administered for this examination. A dose lowering technique was utilized adhering to the principles of ALARA. FINDINGS: Skeletal structures: The skeletal structures are osteopenic. There is no evidence of fracture or subluxation involving the cervical spine. Vertebral body height and alignment are maintained. The odontoid process and lateral masses are intact. The atlantoaxial articulation is preserved noting advanced productive degenerative change with bony overgrowth and narrowing of the interval. The spinous processes appear intact. There is moderate to advanced multilevel cervical spondylosis. Uncovertebral and facet arthropathy contribute to neural foraminal narrowing at most levels. A bone island is noted in the body of T3. A mild superior endplate compression deformity is noted in T1. Intervertebral discs: There is moderate disc space narrowing seen at C5-C6 and C6-C7. Mild disc space narrowing is seen at the remaining cervical levels. Central canal: Posterior disc osteophyte complexes at C5-C6 and C6-C7 may contribute to mild acquired compromise of the central canal. Soft tissues: The prevertebral and paraspinous soft tissues are within normal limits. There is atherosclerotic calcification of the carotid bulbs. Calvarium: The visualized calvarium at the skull base appears intact. Brain parenchyma: Partially visualized brain parenchyma the skull base is within normal limits. Sinuses and mastoids: The visualized paranasal sinuses are clear. The mastoid air cells are well pneumatized. Lung apices: Mild emphysematous change is seen at the apices. Apical lung parenchyma is otherwise clear as visualized. IMPRESSION: 1. There is no evidence of fracture or subluxation involving the cervical spine. 2. Osteopenia and spondylotic change as above. Electronically signed by: Sushant Woodruff M.D. 11/19/2017 7:07 AM Dictated Date/Time: 11/19/2017 7:04 AM
--- NOTE | 2017-11-19 07:24 | DIAGNOSTIC IMAGING REPORT ---
RIGHT THUMB 3 VIEWS CLINICAL HISTORY: Right thumb injury. FINDINGS: 3 views of the right thumb are obtained. No prior studies are available for comparison at the time of dictation. The skeletal structures are osteopenic. There is a tiny avulsion fracture at the radial base of the first proximal phalanx. Overlying soft tissue edema is noted. No additional fracture is clearly seen. Spurring is seen at the base of the first distal phalanx. Mild arthritic change is seen at the first carpometacarpal joint and the first interphalangeal joint. IMPRESSION: Minimally distracted avulsion fracture at the base of the first proximal phalanx as above. Electronically signed by: Sushant Woodruff M.D. 11/19/2017 7:23 AM Dictated Date/Time: 11/19/2017 7:21 AM
== END 2017-11-19 04:51 | disposition home or self-care (01) ==
LOC: EDBD 01:00 → C.EDB 01:01
DX: S61.011A Laceration without foreign body of right thumb without damage to nail, initial encounter (principal); L03.011 Cellulitis of right finger; S80.219A Abrasion, unspecified knee, initial encounter; W19.XXXA Unspecified fall, initial encounter; Y92.129 Unspecified place in nursing home as the place of occurrence of the external cause; G30.9 Alzheimer's disease, unspecified; F02.80 Dementia in other diseases classified elsewhere, unspecified severity, without behavioral disturbance, psychotic disturbance, mood disturbance, and anxiety; G20 Parkinson's disease; Z79.82 Long term (current) use of aspirin; Z79.899 Other long term (current) drug therapy; Z91.041 Radiographic dye allergy status

== ENCOUNTER → 2017-12-20 | Outpatient (CLI) | payer OTHER ==
[~2017-12-20] MED LIST changes: -ASPI325T60 PO; +CEPH500C PO; -ESCI1TAB9 PO; +FENO160T PO; -FENO160T4 PO; +GADAVIST IV PRN; +LDDP5 TOP; -MOMLX PO; -MULT-845 PO; +MULTTAB63 PO; -NYST100010 TOP; -RXC5 PO; -SENNTAB23 PO; -TADA10TA PO
--- NOTE | 2017-12-20 08:58 | DIAGNOSTIC IMAGING REPORT ---
MRI OF THE BRAIN WITHOUT AND WITH IV CONTRAST CLINICAL HISTORY: Parkinson's disease. Cerebrovascular disease. Left-sided weakness. COMPARISON STUDY: MRI of the brain March 08, [address] November 19, 2017. TECHNIQUE: Utilizing a 1.5 Flory magnet and dedicated coil, multiplanar, multiecho imaging of the brain was performed pre and postcontrast administration. IV administration of 9 mL of Gadavist contrast was uneventful. FINDINGS: There are no foci of restricted diffusion. No acute intracranial hemorrhage, midline shift or mass effect is present. Moderate atrophy is noted. Mild ventricular dilatation is unchanged and due to atrophy. The basilar cisterns are patent. There are no extraaxial collections. Flow-voids for the major intracranial vessels are present. T2 hyperintense cystic spaces within the right centrum semiovale are unchanged since MRI of March 08, 2016. Scattered white matter T2 hyperintense foci are unchanged and suggest small vessel disease. The appearance of the brain is unchanged. A small left maxillary sinus air-fluid level is present. IMPRESSION: 1. No acute intracranial findings. 2. No change in appearance of the brain since MRI of March 08, 2016. 3. No intracranial mass or pathologic enhancement. 4. Moderate atrophy. 5. T2 hyperintense cystic spaces within the right centrum semiovale which favor prominent perivascular spaces. Electronically signed by: Adán Ramirez M.D. 12/20/2017 8:57 AM Dictated Date/Time: 12/20/2017 8:51 AM
== END | disposition home or self-care (01) ==
LOC: C.MRI 07:39
PROVIDERS: ATTEND Physician Assistant
DX: G20 Parkinson's disease (principal); I67.9 Cerebrovascular disease, unspecified; R53.1 Weakness

== ENCOUNTER → 2018-01-17 | Outpatient (CLI) | payer OTHER ==
[~2018-01-17] MED LIST changes: -GADAVIST IV PRN
[2018-01-17 10:07] LABS: BASO % 0.6 %; BASO ABS # 0.04 K/uL (0-0.2); EOS % 0.9 %; EOS ABS # 0.06 K/uL (0-0.5); HEMATOCRIT 38.3 % (42-52); HEMOGLOBIN 12.7 g/dL (14.0-18.0); IG# 0.01 K/uL (0.00-0.02); LYMPH % 30.3 %; LYMPH ABS # 1.92 K/uL (1.2-3.4); MEAN CORPUSCULAR HEMOGLOBIN 27.9 pg (25-34); MEAN CORPUSCULAR HGB CONC 33.2 g/dl (32-36); MEAN PLATELET VOLUME 9.6 fL (7.4-10.4); MONO % 9.5 %; NEUT % 58.5 %; NEUT ABS # 3.71 K/uL (1.4-6.5); PLATELET COUNT 318 K/uL (130-400); RED CELL DISTRIBUTION WIDTH CV 15.5 % (11.5-14.5); RED CELL DISTRIBUTION WIDTH SD 47.9 fL (36.4-46.3); WHITE BLOOD COUNT 6.34 K/uL (4.8-10.8)
[2018-01-17 10:16] LABS: ALBUMIN 3.7 gm/dl (3.4-5.0); ALT/SGPT 23 U/L (12-78); AST/SGOT 16 U/L (15-37); BLOOD UREA NITROGEN 13 mg/dl (7-18); CALCIUM 9.3 mg/dl (8.5-10.1); CARBON DIOXIDE 23 mmol/L (21-32); CREATININE 0.98 mg/dl (0.60-1.40); GLUCOSE 89 mg/dl (70-99); POTASSIUM 3.9 mmol/L (3.5-5.1); SODIUM 135 mmol/L (136-145)
[2018-01-17 10:18] LABS: ALKALINE PHOSPHATASE 122 U/L (45-117); TOTAL PROTEIN 7.3 gm/dl (6.4-8.2)
== END | disposition home or self-care (01) ==
LOC: C.LABUPBEA 08:33
PROVIDERS: ATTEND Nurse Practitioner Family
DX: G89.3 Neoplasm related pain (acute) (chronic) (principal); I10 Essential (primary) hypertension; G20 Parkinson's disease

== ENCOUNTER 2018-04-04 11:20 | Inpatient (IN) | payer OTHER ==
[~2018-04-04] VITALS: Ht 188 cm; Wt 74.4 kg
--- NOTE | 2018-04-04 12:11 | EMERGENCY ROOM VISIT NOTE ---
History Report prepared by Pj: Maxim Dejesus Under the Supervision of: Dr. Ken Sharma First contact with patient: 11:56 Chief Complaint: PSYCHIATRIC PROBLEMS Stated Complaint: MENTAL HEALTH History of Present Illness This HPI was acquired from the psychiatric watch caser and patient's son as the patient presents unresponsive. The patient is a 72 year old male who presents to the Emergency Room with his son for a mental health evaluation. Per the psychiatric watch caser the patient got a vinyl record and broke it to create a sharp object to cut his wrists, legs, and neck yesterday. When asked why he did this he responded "I have had enough." When asked further if this was an attempt to kill himself he said yes. The son is notes that as of October 5 months ago he was completely on his own but has gradually declined. He states that his current status is not normal. The son also adds that the patient is convinced that he has Parkinson's Disease and has been on a large amount of pharmaceuticals recently. He notes that he has a history of drug and alcohol abuse. The patient's tetanus shot was last updated in November per patient record. Source of History: patient, family, nursing staff (Psych Flight [employer] Scheduler) History Limited By: AMS Onset: Cut himself yesterday Position: neck, wrist (bilateral), leg (bilateral) Quality: other (self inflicted cuts) Timing: other (Cut himself yesterday) Review of Systems See HPI for pertinent positives and negatives. A total of ten systems were reviewed and were otherwise negative. Past Medical & Surgical Medical Problems: (1) Alzheimer disease (2) Hip fracture, left (3) Parkinson disease Family History Patient reports no known family medical history. Social History Smoking Status: Former Smoker Drug Use: marijuana Marital Status: single Housing Status: shelter Current/Historical Medications Scheduled Carbidopa/Levodopa (Sinemet 25MG/100MG), 2 TABS PO TID Docusate Sodium (Colace), 100 MG PO BID Ergocalciferol (Vitamin D 06079 Unit), 50,000 UNIT PO WK Fenofibrate (Tricor), 160 MG PO DAILY Lidocaine (Lidocaine), 1 PATCH TOP DAILY Lisinopril (Zestril), 10 MG PO DAILY Omeprazole (Prilosec), 20 MG PO DAILY Pimavanserin Tartrate (Nuplazid), 34 MG PO DAILY Potassium Chloride Microencaps (Potassium Chloride Er), 10 MEQ PO DAILY Pramipexole Dihydrochloride (Mirapex), 1 MG PO HS Tolterodine Tartrate (Detrol LA), 2 MG PO BID Trazodone Hcl (Trazodone), 25 MG PO BID Scheduled PRN Acetaminophen Tab (Tylenol), 650 MG PO Q6 PRN for Pain Acetaminophen Tab (Tylenol), 650 MG PO Q8 PRN for Temp Bisacodyl (Dulcolax), 1 SUPP MS UD PRN for Constipation Magnesium Hydroxide (Milk of Magnesia 400 mg/5Ml), 30 ML PO UD PRN for CON Oxycodone Hcl (Oxycodone Hcl), 5 MG PO Q4 PRN for Pain Polyethylene Glycol 3350 (Miralax), 17 GM PO DAILY PRN for Constipation Sodium Phosphates (Fleet Enema Six Pack), 1 UNIT MS UD PRN for Constipation Miscellaneous Medications Fenofibrate Micronized (Fenofibrate) Allergies Coded Allergies: Iodinated Diagnostic Agents (Verified Allergy, Unknown, SKIN FLUSHES, 04/04) Physical Exam Vital Signs Date Time Temp Pulse Resp B/P (MAP) Pulse Ox O2 Delivery O2 Flow Rate FiO2 04/04/18 14:30 69 14 04/04/18 14:01 109/66 04/04/18 14:00 78 21 04/04/18 12:46 70 15 106/65 98 Room Air 04/04/18 12:44 75 04/04/18 12:29 73 10 99/53 98 Room Air 04/04/18 11:35 36.7 82 16 102/64 97 Room Air Physical Exam GENERAL: No distress. Responsive to painful stimuli. HENT: Normocephalic, atraumatic. Oropharynx unremarkable. EYES: Normal conjunctiva. Sclera non-icteric. NECK: Supple. No nuchal rigidity. Faint abrasion to right neck linear ~12cm with no bleeding. RESPIRATORY: Clear to auscultation. No wheezes. Normal respiratory effort. CARDIAC: Normal rate. Normal rhythm. Extremities warm and well perfused. GI: Soft, non-distended. No tenderness to palpation. No rebound or guarding. No masses. RECTAL: Deferred. MUSCULOSKELETAL: Atraumatic. Chest examination reveals no tenderness. The back is symmetrical on inspection without obvious abnormality. There is no CVA tenderness to palpation. LOWER EXTREMITIES: Calves are equal size bilaterally and non-tender. No edema NEURO: Responsive to painful stimuli. SKIN: There are multiple linear superficial abrasions to the bilateral inner thighs, also to the forearms, superficial in nature. No evidence of tendon injury. Medical Decision & Procedures ER Provider Diagnostic Interpretation: Radiology results as stated below per my review and radiologist interpretation: CHEST ONE VIEW PORTABLE CLINICAL HISTORY: 72 years-old Male presenting with Mood Disorder. TECHNIQUE: Portable upright AP view of the chest was obtained. COMPARISON: 10/22/2017. FINDINGS: Atherosclerosis of the aortic arch. Cardiac silhouette top normal in size. Heterogeneous lung parenchyma with relative radiolucency of the upper lobes. No focal opacity. No large effusion or pneumothorax. Osseous structures normal. Upper abdomen normal. IMPRESSION: 1. Findings may suggest emphysema. No focal infiltrate to suggest pneumonia. Electronically signed by: Dayton Sales M.D. 04/04/2018 12:39 PM Dictated Date/Time: 04/04/2018 12:38 PM HEAD WITHOUT CONTRAST (CT) CLINICAL HISTORY: 72 years-old Male with EVALUATE FOR PSYCH CLEARANCE. Acutely altered mental status TECHNIQUE: Multiple axial CT images of the head were obtained without contrast. A dose lowering technique was utilized adhering to the principles of ALARA. CT DOSE: 691.05 mGy.cm COMPARISON: CT head 11/19/2017, brain MRI 12/20/2017. FINDINGS: No acute intracranial hemorrhage, midline shift, intracranial mass, hydrocephalus, territorial ischemia or abnormal extra-axial collection. Unchanged hypodensities about the right centrum semiovale. Age-related involutional changes. Cerebral vascular calcifications are noted. 5 mm area of decreased density involving the thalamus on image 20 series 2 which is unchanged from comparison MRI suggesting remote lacunar infarction. The calvarium is intact. Trace right mastoid effusion. Left mastoid air cells appear generally clear. Paranasal sinuses are clear. Soft tissues and orbits are within normal limits. IMPRESSION: No acute intracranial abnormality. The above report was generated using voice recognition software. It may contain grammatical, syntax or spelling errors. Electronically signed by: Yuniel Jung M.D. 04/04/2018 1:41 PM Dictated Date/Time: 04/04/2018 1:36 PM Laboratory Results 04/04/18 12:33 Red Blood Count 3.85, Mean Corpuscular Volume 88.1, Mean Corpuscular Hemoglobin 29.4, Mean Corpuscular Hemoglobin Concent 33.3, Mean Platelet Volume 9.2, Neutrophils (%) (Auto) 62.7, Lymphocytes (%) (Auto) 26.4, Monocytes (%) (Auto) 8.5, Eosinophils (%) (Auto) 1.6, Basophils (%) (Auto) 0.4, Neutrophils # (Auto) 3.16, Lymphocytes # (Auto) 1.33, Monocytes # (Auto) 0.43, Eosinophils # (Auto) 0.08, Basophils # (Auto) 0.02 04/04/18 12:33 Test 04/04/18 12:33 04/04/18 12:51 04/04/18 14:10 04/04/18 15:13 White Blood Count 5.04 K/uL (4.8-10.8) Red Blood Count 3.85 M/uL (4.7-6.1) Hemoglobin 11.3 g/dL (14.0-18.0) Hematocrit 33.9 % (42-52) Mean Corpuscular Volume 88.1 fL (80-100) Mean Corpuscular Hemoglobin 29.4 pg (25-34) Mean Corpuscular Hemoglobin Concent 33.3 g/dl (32-36) Platelet Count 280 K/uL (130-400) Mean Platelet Volume 9.2 fL (7.4-10.4) Neutrophils (%) (Auto) 62.7 % Lymphocytes (%) (Auto) 26.4 % Monocytes (%) (Auto) 8.5 % Eosinophils (%) (Auto) 1.6 % Basophils (%) (Auto) 0.4 % Neutrophils # (Auto) 3.16 K/uL (1.4-6.5) Lymphocytes # (Auto) 1.33 K/uL (1.2-3.4) Monocytes # (Auto) 0.43 K/uL (0.11-0.59) Eosinophils # (Auto) 0.08 K/uL (0-0.5) Basophils # (Auto) 0.02 K/uL (0-0.2) RDW Standard Deviation 54.2 fL (36.4-46.3) RDW Coefficient of Variation 16.8 % (11.5-14.5) Immature Granulocyte % (Auto) 0.4 % Immature Granulocyte # (Auto) 0.02 K/uL (0.00-0.02) Prothrombin Time 10.8 SECONDS (9.0-12.0) Prothromb Time International Ratio 1.0 (0.9-1.1) Activated Partial Thromboplast Time 26.7 SECONDS (21.0-31.0) Partial Thromboplastin Ratio 1.0 Anion Gap 8.0 mmol/L (3-11) Est Creatinine Clear Calc Drug Dose 79.2 ml/min Estimated GFR () 96.6 Estimated GFR (Non- 83.4 BUN/Creatinine Ratio 32.1 (10-20) Calcium Level 8.8 mg/dl (8.5-10.1) Magnesium Level 2.4 mg/dl (1.8-2.4) Total Bilirubin 0.4 mg/dl (0.2-1) Direct Bilirubin 0.1 mg/dl (0-0.2) Aspartate Amino Transf (AST/SGOT) 19 U/L (15-37) Alanine Aminotransferase (ALT/SGPT) 8 U/L (12-78) Alkaline Phosphatase 81 U/L (45-117) Ammonia 27.3 umol/L (11-32) Troponin I < 0.015 ng/ml (0-0.045) Total Protein 6.9 gm/dl (6.4-8.2) Albumin 3.6 gm/dl (3.4-5.0) Lipase 156 U/L (73-393) Thyroid Stimulating Hormone (TSH) 2.780 uIu/ml (0.300-4.500) Salicylates Level < 1.7 mg/dl (2.8-20) Acetaminophen Level < 2 ug/ml (10-30) Ethyl Alcohol mg/dL < 3.0 mg/dl (0-3) Bedside Glucose 89 mg/dl (70-99) Urine Color YELLOW Urine Appearance CLOUDY (CLEAR) Urine pH 7.5 (4.5-7.5) Urine Specific Lawn 1.017 (1.000-1.030) Urine Protein NEG (NEG) Urine Glucose (UA) NEG (NEG) Urine Ketones NEG (NEG) Urine Occult Blood NEG (NEG) Urine Nitrite NEG (NEG) Urine Bilirubin NEG (NEG) Urine Urobilinogen NEG (NEG) Urine Leukocyte Esterase LARGE (NEG) Urine WBC (Auto) >30 /hpf (0-5) Urine RBC (Auto) 0-4 /hpf (0-4) Urine Hyaline Casts (Auto) 1-5 /lpf (0-5) Urine Epithelial Cells (Auto) 0-5 /lpf (0-5) Urine Bacteria (Auto) NEG (NEG) Urine Crystals AMORPHOUS SEDIMENT (NONE Urine Pathogenic Casts /lpf (0) Urine Opiates Screen NEG (NEG) Urine Methadone, Qualitative NEG (NEG) Urine Barbiturates NEG (NEG) Urine Phencyclidine (PCP) Level NEG (NEG) Ur Amphetamine/Methamphetamine NEG (NEG) MDMA (Ecstasy) Screen NEG (NEG) Urine Benzodiazepines Screen NEG (NEG) Urine Cocaine Metabolite NEG (NEG) Urine Marijuana (THC) NEG (NEG) Bedside Lactic Acid Venous 0.48 mmol/L (0.90-1.70) Laboratory results reviewed by me ECG Per My Interpretation Indication: altered mental status Rate (beats per minute): 74 Rhythm: normal sinus Findings: other (No MIN/STD) Comparison ECG Date: 10/22/2017 Change: no significant change ED Course 1158: The patient was evaluated in room A6. A complete history and physical exam was performed. 1414: I discussed the case with Bety Li [facility] Hospitalist ABDOUL. She will evaluate for further treatment. Medical Decision Differential diagnosis: Etiologies such as mood disorder, infection, hypoglycemia, electrolyte abnormalities, cardiac sources, intracerebral event, toxicologic, neurologic, metabolic, infection, hypoglycemia, electrolyte abnormalities, cardiac sources, intracerebral event, toxicologic, neurologic, as well as others were entertained. Patient presents after self injurious behavior and scratching to the upper extremities and lower extremities along with his neck.. Very superficial. Tetanus up-to-date. Does not appear to involve deeper structures and no closure as needed. No access to other medications. Patient is with decreased responsiveness. Altered mental status and weakness workup was completed including head CT and infectious metabolic workup. No focality to his exam. CT unremarkable and no clear evidence of pneumonia or metabolic derangement. Negative Tylenol and salicylate levels. Urinalysis is concerning for possible infection and urine culture sent. Given a gram of ceftriaxone. Patient is somewhat more responsive after several hours here but feel that medical admission is warranted with psychiatric consultation. Questions if this period of AMS with secondary to his Parkinson disease and med changes. [facility] who is in agreement with plan for medical admission. Patient continues to state he wishes to . Will need sitter on floor. Medication Reconcilliation Current Medication List: was personally reviewed by me Blood Pressure Screening Patient's blood pressure: Normal blood pressure Consults Time Called: 1421 Consulting Physician: Bety NOLASCO Hospitalist Returned Call: 1414 I discussed the case with Bety NOLASCO Hospitalist ABDOUL. She will evaluate for further treatment. Impression Primary Impression: Abrasion Additional Impressions: Altered mental status Self-injurious behavior UTI (urinary tract infection) Scribe Attestation The scribe's documentation has been prepared under my direction and personally reviewed by me in its entirety. I confirm that the note above accurately reflects all work, treatment, procedures, and medical decision making performed by me. Departure Information Dispostion Being Evaluated By Hospitalist Referrals Oli Kumar (PCP) Patient Instructions My [facility] Health Problem Qualifiers Additional Impressions: Altered mental status Altered mental status type: transient alteration of awareness Qualified Codes : R40.4 - Transient alteration of awareness UTI (urinary tract infection) Urinary tract infection type: acute cystitis Hematuria presence: without hematuria Qualified Codes: N30.00 - Acute cystitis without hematuria
[2018-04-04] MEDS ORDERED: MAGNSUS73 PO (12:34)
[2018-04-04] MEDS ORDERED: FENO160T PO (12:34)
[2018-04-04] MEDS ORDERED: FENO1CAP (12:34)
[2018-04-04] MEDS ORDERED: POLY335019 PO (12:34)
[2018-04-04] MEDS ORDERED: MRP1 PO (12:34)
[2018-04-04] MEDS ORDERED: PIMA17TA PO (12:34)
[2018-04-04] MEDS ORDERED: ACET-1693 PO ×2 (12:34)
[2018-04-04] MEDS ORDERED: PRLSR20 PO (12:34)
[2018-04-04] MEDS ORDERED: DOCU-94 PO (12:34)
[2018-04-04] MEDS ORDERED: DTRSR/2 PO (12:34)
[2018-04-04] MEDS ORDERED: ERGO500037 PO (12:34)
[2018-04-04] MEDS ORDERED: SODI1ENE PR (12:34)
[2018-04-04] MEDS ORDERED: LISI-461 PO (12:34)
[2018-04-04] MEDS ORDERED: CARB25TA12 PO (12:34)
[2018-04-04] MEDS ORDERED: POTA10TA32 PO (12:34)
[2018-04-04] MEDS ORDERED: TRAZ50TA35 PO (12:34)
[2018-04-04] MEDS ORDERED: BISA10SU38 PR (12:34)
[2018-04-04] MEDS ORDERED: OXYC1CAP5 PO (12:34)
--- NOTE | 2018-04-04 12:41 | DIAGNOSTIC IMAGING REPORT ---
CHEST ONE VIEW PORTABLE CLINICAL HISTORY: 72 years-old Male presenting with Mood Disorder. TECHNIQUE: Portable upright AP view of the chest was obtained. COMPARISON: 10/22/2017. FINDINGS: Atherosclerosis of the aortic arch. Cardiac silhouette top normal in size. Heterogeneous lung parenchyma with relative radiolucency of the upper lobes. No focal opacity. No large effusion or pneumothorax. Osseous structures normal. Upper abdomen normal. IMPRESSION: 1. Findings may suggest emphysema. No focal infiltrate to suggest pneumonia. Electronically signed by: Dayton Sales M.D. 04/04/2018 12:39 PM Dictated Date/Time: 04/04/2018 12:38 PM
[2018-04-04 12:53] LABS: BASO % 0.4 %; BASO ABS # 0.02 K/uL (0-0.2); EOS % 1.6 %; EOS ABS # 0.08 K/uL (0-0.5); HEMATOCRIT 33.9 % (42-52); HEMOGLOBIN 11.3 g/dL (14.0-18.0); IG# 0.02 K/uL (0.00-0.02); LYMPH % 26.4 %; LYMPH ABS # 1.33 K/uL (1.2-3.4); MEAN CELL VOLUME 88.1 fL (80-100); MEAN CORPUSCULAR HEMOGLOBIN 29.4 pg (25-34); MEAN CORPUSCULAR HGB CONC 33.3 g/dl (32-36); MEAN PLATELET VOLUME 9.2 fL (7.4-10.4); MONO % 8.5 %; MONO ABS # 0.43 K/uL (0.11-0.59); NEUT % 62.7 %; NEUT ABS # 3.16 K/uL (1.4-6.5); PLATELET COUNT 280 K/uL (130-400); RED CELL DISTRIBUTION WIDTH CV 16.8 % (11.5-14.5); RED CELL DISTRIBUTION WIDTH SD 54.2 fL (36.4-46.3); WHITE BLOOD COUNT 5.04 K/uL (4.8-10.8)
[2018-04-04 13:02] LABS: PTT PATIENT 26.7 SECONDS (21.0-31.0)
[2018-04-04 13:17] LABS: ALBUMIN 3.6 gm/dl (3.4-5.0); ALT/SGPT 8 U/L (12-78); AST/SGOT 19 U/L (15-37); BLOOD UREA NITROGEN 30 mg/dl (7-18); CALCIUM 8.8 mg/dl (8.5-10.1); CARBON DIOXIDE 25 mmol/L (21-32); CREATININE 0.92 mg/dl (0.60-1.40); GLUCOSE 79 mg/dl (70-99); LIPASE 156 U/L (73-393); POTASSIUM 4.2 mmol/L (3.5-5.1); SODIUM 137 mmol/L (136-145)
[2018-04-04 13:20] LABS: ALKALINE PHOSPHATASE 81 U/L (45-117); TOTAL PROTEIN 6.9 gm/dl (6.4-8.2)
--- NOTE | 2018-04-04 13:43 | DIAGNOSTIC IMAGING REPORT ---
HEAD WITHOUT CONTRAST (CT) CLINICAL HISTORY: 72 years-old Male with EVALUATE FOR PSYCH CLEARANCE. Acutely altered mental status TECHNIQUE: Multiple axial CT images of the head were obtained without contrast. A dose lowering technique was utilized adhering to the principles of ALARA. CT DOSE: 691.05 mGy.cm COMPARISON: CT head 11/19/2017, brain MRI 12/20/2017. FINDINGS: No acute intracranial hemorrhage, midline shift, intracranial mass, hydrocephalus, territorial ischemia or abnormal extra-axial collection. Unchanged hypodensities about the right centrum semiovale. Age-related involutional changes. Cerebral vascular calcifications are noted. 5 mm area of decreased density involving the thalamus on image 20 series 2 which is unchanged from comparison MRI suggesting remote lacunar infarction. The calvarium is intact. Trace right mastoid effusion. Left mastoid air cells appear generally clear. Paranasal sinuses are clear. Soft tissues and orbits are within normal limits. IMPRESSION: No acute intracranial abnormality. The above report was generated using voice recognition software. It may contain grammatical, syntax or spelling errors. Electronically signed by: Yuniel Jung M.D. 04/04/2018 1:41 PM Dictated Date/Time: 04/04/2018 1:36 PM
[2018-04-04] MEDS ORDERED: CEFTRIAXONE SOD INJ 1 GM ADDVIAL IV STA (15:28)
[2018-04-04] MEDS ORDERED: MAGNESIUM HYDROXIDE SUSP 30 ML UDC PO PRN (16:15)
[2018-04-04] MEDS ORDERED: POLYETHYLENE (MIRALAX) 17 GM PACK PO PRN (16:15)
[2018-04-04] MEDS ORDERED: ONDANSETRON INJ 2 MG/ML 2 ML VIAL IV PRN (16:15)
[2018-04-04] MEDS ORDERED: ALUMINUM/MAGNESIUM/SIMETH (MAALOX MAX) 30 ML UDC PO PRN (16:15)
[2018-04-04] MEDS ORDERED: IV FLUIDS COMPLETED PRN (16:30)
--- NOTE | 2018-04-04 17:04 | History and Physical ---
History & Physical Date & Time of Service: Apr 04, 2018 at 17:03 Chief Complaint: Mental Health Primary Care Physician: Oli Kumar History of Present Illness Mr. Lombardi is a 72 y/o male with PMHx of Parkinson's Disease, Dementia, HTN, HLD, Depression, and GERD who presented to the ED for mental health evaluation. Patient was admitted to hospitalist service due to episode of appearing catatonic and inability to arouse even with sternal rubbing. During my examination patient is alert and oriented. His BP dropped to 75 systolically and respirations decreased during this episode. Suspect this may have been an autonomic dysfunction related to his Parkinson's? No direct explanation otherwise. UA does show some leuks and Cx pending. Abx started in ED. Patient has had a progressive decline since October 2017 when he sustained a L hip fracture and underwent ATIF. He currently resides at [facility]. Review of outpatient records suggest continual decline from a Parkinsonism standpoint with visual hallucinations and more confusion. Patient states that he took a vinyl records and broke a piece to cut his wrists, legs, and neck. He states that he would like to . He states he sees his body declining and he is trapped. He says he cannot stand being at [facility] and that he has no reason to keep living. When asked if he would like psychiatric help he said "it may help" then states as long as I don't go back to [facility]. He does answer questions largely appropriate. However does saw some likely inaccurate things. He kept re-stating that he would not want dialysis and that he has a dialysis machine in his room at [facility] but would not want this. Renal function is stable and no signs suggest he would need this? It appears in February he had Amantadine D/Cd, Mirapex decreased to 1 mg daily, and Nuplazid added for hallucinations. Patient does endorse utilizing recreational marijuana but states he ran out but couldn't say when he last used. Asked if the 03/[facility] has this as he was told he could get it free there. Also asked if it was available here. He states he no longer uses any forms of alcohol. Past Medical/Surgical History 1. Parkinson's Disease 2. Dementia - Hallucinations 3. HTN 4. HLD 5. Depression 6. GERD 7. S/P Back Surgery - 2013 8. S/P Knee Surgery 9. S/P L ATIF 10. S/P Tonsillectomy Family History Patient reports no known family medical history. Social History Smoking Status: Former Smoker Drug Use: marijuana Marital Status: single Housing status: lives alone, shelter Immunizations History of Influenza Vaccine: Yes History of Tetanus Vaccine?: Yes History of Pneumococcal: Yes History of Hepatitis B Vaccine: No Allergies Coded Allergies: Iodinated Diagnostic Agents (Verified Allergy, Unknown, SKIN FLUSHES, 04/04) Home Medications Scheduled Carbidopa/Levodopa (Sinemet 25MG/100MG), 2 TABS PO TID Docusate Sodium (Colace), 100 MG PO BID Ergocalciferol (Vitamin D 76162 Unit), 50,000 UNIT PO WK Fenofibrate (Tricor), 160 MG PO DAILY Lidocaine (Lidocaine), 1 PATCH TOP DAILY Lisinopril (Zestril), 10 MG PO DAILY Omeprazole (Prilosec), 20 MG PO DAILY Pimavanserin Tartrate (Nuplazid), 34 MG PO DAILY Potassium Chloride Microencaps (Potassium Chloride Er), 10 MEQ PO DAILY Pramipexole Dihydrochloride (Mirapex), 1 MG PO HS Tolterodine Tartrate (Detrol LA), 2 MG PO BID Trazodone Hcl (Trazodone), 25 MG PO BID Scheduled PRN Acetaminophen Tab (Tylenol), 650 MG PO Q6 PRN for Pain Acetaminophen Tab (Tylenol), 650 MG PO Q8 PRN for Temp Bisacodyl (Dulcolax), 1 SUPP [place] UD PRN for Constipation Magnesium Hydroxide (Milk of Magnesia 400 mg/5Ml), 30 ML PO UD PRN for CON Oxycodone Hcl (Oxycodone Hcl), 5 MG PO Q4 PRN for Pain Polyethylene Glycol 3350 (Miralax), 17 GM PO DAILY PRN for Constipation Sodium Phosphates (Fleet Enema Six Pack), 1 UNIT [place] UD PRN for Constipation Miscellaneous Medications Fenofibrate Micronized (Fenofibrate) Review of Systems Constitutional: + problem reported (diffuse vague aching pain all over), No fever, No chills ENT: No nasal symptoms, No sore throat Respiratory: No cough, No shortness of breath Cardiovascular: No chest pain Abdomen: No pain, No nausea Musculoskeletal: No calf pain Genitourinary - Male: + urinary incontinence, No dysuria Neurologic: + balance problems (chronic) Psychiatric: + depression symptoms Hematologic / Lymphatic: No abnormal bleeding/bruising Integumentary: + problem reported (lacerations of arms, legs, neck) Physical Exam Vital Signs Date Time Temp Pulse Resp B/P (MAP) Pulse Ox O2 Delivery O2 Flow Rate FiO2 04/04/18 16:47 85 04/04/18 16:35 84 18 04/04/18 16:05 66 13 04/04/18 16:01 110/65 04/04/18 15:35 61 15 04/04/18 15:05 63 18 04/04/18 15:01 103/63 04/04/18 14:35 71 15 04/04/18 14:30 69 14 04/04/18 14:01 109/66 04/04/18 14:00 78 21 04/04/18 12:46 70 15 106/65 98 Room Air 04/04/18 12:44 75 04/04/18 12:36 75 20 75/40 97 Room Air 04/04/18 12:29 73 10 99/53 98 Room Air 04/04/18 11:35 36.7 82 16 102/64 97 Room Air General Appearance: no apparent distress, + thin, + pertinent finding (mask- like face with some expression with good eye contact) Head: normocephalic, atraumatic Eyes: sclerae normal ENT: hearing grossly normal Neck: supple, no JVD, trachea midline Respiratory/Chest: lungs clear, normal breath sounds, no respiratory distress, no accessory muscle use Cardiovascular: regular rate, rhythm, no gallop, no murmur Abdomen/GI: normal bowel sounds, non tender, soft Extremities/Musculoskelatal: no calf tenderness, no pedal edema Neurologic/Psych: alert, oriented x 3, + motor weakness (chronic with bradykinesia with movement of arms), + depressed affect (does have some facial expression when telling jokes; makes good eye contact ) Skin: normal color, warm/dry, + pertinent finding (superficial laceration to the b/l wrists/arms and thighs and neck - no active bleeding) Diagnostics Laboratory Results Results Past 24 Hours Test 04/04/18 12:33 04/04/18 12:51 04/04/18 14:10 04/04/18 15:13 Range/Units White Blood Count 5.04 4.8-10.8 K/uL Red Blood Count 3.85 4.7-6.1 M/uL Hemoglobin 11.3 14.0-18.0 g/dL Hematocrit 33.9 42-52 % Mean Corpuscular Volume 88.1 80-100 fL Mean Corpuscular Hemoglobin 29.4 25-34 pg Mean Corpuscular Hemoglobin Concent 33.3 32-36 g/dl Platelet Count 280 130-400 K/uL Mean Platelet Volume 9.2 7.4-10.4 fL Neutrophils (%) (Auto) 62.7 % Lymphocytes (%) (Auto) 26.4 % Monocytes (%) (Auto) 8.5 % Eosinophils (%) (Auto) 1.6 % Basophils (%) (Auto) 0.4 % Neutrophils # (Auto) 3.16 1.4-6.5 K/uL Lymphocytes # (Auto) 1.33 1.2-3.4 K/uL Monocytes # (Auto) 0.43 0.11-0.59 K/uL Eosinophils # (Auto) 0.08 0-0.5 K/uL Basophils # (Auto) 0.02 0-0.2 K/uL RDW Standard Deviation 54.2 36.4-46.3 fL RDW Coefficient of Variation 16.8 11.5-14.5 % Immature Granulocyte % (Auto) 0.4 % Immature Granulocyte # (Auto) 0.02 0.00-0.02 K/uL Prothrombin Time 10.8 9.0-12.0 SECONDS Prothromb Time International Ratio 1.0 0.9-1.1 Activated Partial Thromboplast Time 26.7 21.0-31.0 SECONDS Partial Thromboplastin Ratio 1.0 Sodium Level 137 136-145 mmol/L Potassium Level 4.2 3.5-5.1 mmol/L Chloride Level 104 98-107 mmol/L Carbon Dioxide Level 25 21-32 mmol/L Anion Gap 8.0 3-11 mmol/L Blood Urea Nitrogen 30 7-18 mg/dl Creatinine 0.92 0.60-1.40 mg/dl Est Creatinine Clear Calc Drug Dose 79.2 ml/min Estimated GFR () 96.6 Estimated GFR (Non- 83.4 BUN/Creatinine Ratio 32.1 10-20 Random Glucose 79 70-99 mg/dl Calcium Level 8.8 8.5-10.1 mg/dl Magnesium Level 2.4 1.8-2.4 mg/dl Total Bilirubin 0.4 0.2-1 mg/dl Direct Bilirubin 0.1 0-0.2 mg/dl Aspartate Amino Transf (AST/SGOT) 19 15-37 U/L Alanine Aminotransferase (ALT/SGPT) 8 12-78 U/L Alkaline Phosphatase 81 45-117 U/L Ammonia 27.3 11-32 umol/L Troponin I < 0.015 0-0.045 ng/ml Total Protein 6.9 6.4-8.2 gm/dl Albumin 3.6 3.4-5.0 gm/dl Lipase 156 73-393 U/L Thyroid Stimulating Hormone (TSH) 2.780 0.300-4.500 uIu/ml Salicylates Level < 1.7 2.8-20 mg/dl Acetaminophen Level < 2 10-30 ug/ml Ethyl Alcohol mg/dL < 3.0 0-3 mg/dl Bedside Glucose 89 70-99 mg/dl Urine Color YELLOW Urine Appearance CLOUDY CLEAR Urine pH 7.5 4.5-7.5 Urine Specific [place] 1.017 1.000-1.030 Urine Protein NEG NEG Urine Glucose (UA) NEG NEG Urine Ketones NEG NEG Urine Occult Blood NEG NEG Urine Nitrite NEG NEG Urine Bilirubin NEG NEG Urine Urobilinogen NEG NEG Urine Leukocyte Esterase LARGE NEG Urine WBC (Auto) >30 0-5 /hpf Urine RBC (Auto) 0-4 0-4 /hpf Urine Hyaline Casts (Auto) 1-5 0-5 /lpf Urine Epithelial Cells (Auto) 0-5 0-5 /lpf Urine Bacteria (Auto) NEG NEG Urine Crystals AMORPHOUS SEDIMENT NONE PRSENT Urine Pathogenic Casts 0 /lpf Urine Opiates Screen NEG NEG Urine Methadone, Qualitative NEG NEG Urine Barbiturates NEG NEG Urine Phencyclidine (PCP) Level NEG NEG Ur Amphetamine/Methamphetamine NEG NEG MDMA (Ecstasy) Screen NEG NEG Urine Benzodiazepines Screen NEG NEG Urine Cocaine Metabolite NEG NEG Urine Marijuana (THC) NEG NEG Bedside Lactic Acid Venous 0.48 0.90-1.70 mmol/L Diagnostic Radiology HEAD WITHOUT CONTRAST (CT) CLINICAL HISTORY: 72 years-old Male with EVALUATE FOR PSYCH CLEARANCE. Acutely altered mental status TECHNIQUE: Multiple axial CT images of the head were obtained without contrast. A dose lowering technique was utilized adhering to the principles of ALARA. CT DOSE: 691.05 mGy.cm COMPARISON: CT head 11/19/2017, brain MRI 12/20/2017. FINDINGS: No acute intracranial hemorrhage, midline shift, intracranial mass, hydrocephalus, territorial ischemia or abnormal extra-axial collection. Unchanged hypodensities about the right centrum semiovale. Age-related involutional changes. Cerebral vascular calcifications are noted. 5 mm area of decreased density involving the thalamus on image 20 series 2 which is unchanged from comparison MRI suggesting remote lacunar infarction. The calvarium is intact. Trace right mastoid effusion. Left mastoid air cells appear generally clear. Paranasal sinuses are clear. Soft tissues and orbits are within normal limits. IMPRESSION: No acute intracranial abnormality. EKG Normal sinus rhythm Normal ECG When compared with ECG of 22-OCT-2017 03:57, No significant change was found Impression Assessment and Plan Mr. Lombardi is a 72 y/o male with PMHx of Parkinson's Disease, Dementia, HTN, HLD, Depression, and GERD who presented to the ED for mental health evaluation. Unresponsive Episode: Autonomic Dysfunction given Parkinson's? - RESOLVED - Per report patient was catatonic with inability to awake even with sternal rub and no pain response - patient's respirations decreased to 10 and BP lowered to 75/40 - upon my assessment patient is alert and oriented - No obvious explanation for unresponsiveness/confusion - UA largely unremarkable but has leuks and WBC and was given Rocephin x 1 but will hold and await cx - lactic was WNL - will monitor for any arrhythmia however EKG looks well Suicidal Ideations and Self-Harm: - Patient expressed that he wanted to as his Parkinsons is advanced and he does not want to be at [facility] - did initially state he would be interested in psychiatric help but then stated if that would help get him out of [facility] - Wounds are superficial to the b/l wrists, thighs, and neck - Will place 1:1 at bedside for safety - Consult psychiatry - discussed with nurse liaison - appreciate input for management or mental health stay? Parkinson's Disease and Dementia: - Review of outpatient notes suggest that he does have pretty advanced Parkinsons with noted decline with hallucinations/confusion - Patient does make some likely inaccurate comments as he kept stating that he doesn't want dialysis but they keep a machine in his room but has no evidence of renal failure? Given how much he has declined this may not be far from baseline with confusion/hallucinations - Will continue Sinemet 2 tabs TID; Mirapex 1 g daily; Trazodone 25 mg BID which was recently started for depression -- Possible Trazadone making things worse given recent initation? - Nuplazid does not appear in meds to order - maybe can be brought in? - Consult Neurology - follows with Dr. Joseph - any medication adjustments vs HTN: - Lisinopril 10 mg daily DVT Prophylaxis: SCDs Code Status: FULL RESUSCITATION Disposition: PT/OT evaluations - if uneventful overnight medically would be reasonable to discharge pending safe disposition in regards to mental health - Psychiatric eval - inpatient treatment? - Currently residing at [facility] Resuscitation Status VTE Prophylaxis Will order VTE Prophylaxis: Yes Note Supervising Note Dr. White I performed a history and physical examination on the patient. I reviewed above note and agree with it. I discussed plan with APC and patient. During my face to face encounter with the patient, I answered all of the patient's questions. Patient is awake and alert once I examined patient. Given that he had an unsuccessful suicide attempt, will have him on a 1 to 1 observation Will obtain a neuro consult and a psych consult. will continue his current meds.
[2018-04-04 18:17] VITALS: BP 117/66; PULSE 87; TEMP 36.4; O2SAT 97; BMI 21.5
[2018-04-04 19:11] VITALS: BP 98/63; PULSE 83; TEMP 36.5; O2SAT 97
[2018-04-04] MEDS: SODIUM CHLORIDE 0.9% 1000ML 1,000 ML IV SCH (20:36)
[2018-04-04 20:37] VITALS: BP 104/64
[2018-04-04] MEDS: ACETAMINOPHEN 325 MG TAB PO PRN (21:28)
[2018-04-04] MEDS: CARBIDOPA/LEVODOPA 25/100MG TAB PO SCH (22:12)
[2018-04-04] MEDS: TOLTERODINE TARTRATE LA 2 MG CAPCR PO SCH (22:12)
[2018-04-04] MEDS: DOCUSATE SODIUM 100 MG CAP PO SCH (22:12)
[2018-04-04] MEDS: TRAZODONE HCL 50 MG TAB PO SCH (22:12)
[2018-04-04 23:09] VITALS: BP 90/56; PULSE 78; TEMP 36.7; O2SAT 97
[2018-04-05] VITALS (9 sets, daily range): BP systolic 88–107; BP diastolic 50–67; PULSE 63–92; TEMP 36.3–36.8; O2SAT 94–100; Ht 188 cm; Wt 74.4 kg
[2018-04-05] MEDS: TRAZODONE HCL 50 MG TAB PO SCH ×2 (08:20→19:47)
[2018-04-05] MEDS: DOCUSATE SODIUM 100 MG CAP PO SCH ×2 (08:20→19:47)
[2018-04-05] MEDS: TOLTERODINE TARTRATE LA 2 MG CAPCR PO SCH ×2 (08:21→19:49)
[2018-04-05] MEDS: CARBIDOPA/LEVODOPA 25/100MG TAB PO SCH ×3 (08:21→19:48)
[2018-04-05] MEDS: LISINOPRIL 10 MG TAB PO SCH (08:22)
[2018-04-05] MEDS: LIDODERM (LIDOCAINE) PATCH 5% TD SCH (08:23)
[2018-04-05] MEDS: POTASSIUM CHLORIDE 10 MEQ TABCR PO SCH (08:23)
[2018-04-05] MEDS: SODIUM CHLORIDE 0.9% 1000ML 1,000 ML IV SCH ×2 (08:26→18:13)
[2018-04-05] MEDS ORDERED: PRAMIPEXOLE DIHYDROCHLORIDE 0.5 MG TAB PO SCH (09:00)
--- NOTE | 2018-04-05 11:46 | Neurology Consultation ---
Neurology Consultation Date of Consultation: Apr 05, 2018. Attending Physician: Augustine White M.D. Primary Care Physician: Oli Kumar Reason for Consultation: Patient is a 72-year-old, who was asked to see the request of SERGEY Solano, for neurologic consultation regarding Parkinson's disease History of Present Illness Source: patient, caregiver, clinic records, hospital records This patient starting having Parkinson's symptoms in 2007. He was evaluated at the [facility] in [facility] and was diagnosed with Parkinson's disease. He was in the [place] area and on Requip and selegiline doing fairly well. Unfortunately , the Requip gave him some hyper sexual behavior in ended up discontinuing those medications and moving to the [facility] to be closer to his family. He 1st saw Dr. Joseph in 2011. He was initiated on Azilect and Neupro and did fairly well. Over time, however, he progressed and was switched from Neupro patch to Mirapex. In 2013 the Azilect was stopped and he was initiated on carbidopa/levodopa. He has been on Mirapex and carbidopa/levodopa since. In 2017, the patient was initiated on Nuplazid for visual hallucinations. In September of 2015, because of memory and other cognitive issues, he underwent complete neuropsychological testing by Dr. Nik Rodarte. This showed mild but distinct cognitive and memory issues consistent with a subcortical/frontal dementia that can be seen with Parkinson's disease. His dementia has progressed but he is not on any medication for dementia. He last saw Dr. Joseph in February of 2018. The patient was having increased confusion and agitation and some visual hallucinations, although they were improved on new [place]. He has been out the [facility]pc. Currently, his medications are carbidopa/levodopa, 25/100, 2 tablets 3 times a day; Nuplazid 17 mg, 2 tablets daily; and Mirapex 1 mg daily. Amantadine was recently stopped. His most recent MRI of the brain was in December of 2017 which showed no change from 2016. There was moderate generalized atrophy and some minimal old small vessel ischemic changes. Patient has a longstanding history of depression and has been on antidepressants intermittently throughout his life. More recently, he is not on any antidepressant. He has been having some mood issues and try to kill himself. He took a final record, broke it, and was scratching his forearms and inner thighs in a suicide attempt. He was brought to the emergency room April 04 at 1135 hours. Temperature was 36.7, pulse 82 and regular, respiratory rate 16, blood pressure 102/64, and O2 saturation 97%. He had bradykinesia and decreased speech. Chest x-ray showed some possible COPD changes CT scan of the head showed no acute changes CBC had a mild anemia and Chem profile was unremarkable. Urine tox screen was negative and TSH was 2.7. His blood pressure has been somewhat low since admission. Currently the patient says he is weak in general and tired. He has some mild occipital pain laying in bed he has no pain, weakness, or numbness in his limbs or spine. He has no dizziness. He feels he has decreased depth perception in his vision and he denies depression except for he does not want to be at the [facility] side fpc. Past Medical/Surgical History Medical Problems: (1) Abrasion Status: Acute (2) Abrasion Status: Acute (3) Altered mental status Status: Acute (4) Cellulitis Status: Acute (5) Fall Status: Acute (6) Fracture of femoral neck Status: Acute (7) Laceration Status: Acute (8) Self-injurious behavior Status: Acute (9) UTI (urinary tract infection) Status: Acute Parkinson's disease, advancing, with bradykinesia and gait disturbance predominantly Subcortical dementia, progressive, likely secondary to his neuro degenerative disease. History of hypertension, dyslipidemia, urinary incontinence, and osteoarthritis of the spine. Post lumbar spine surgery at L4-5, 2012, by Dr. Whittaker Left patellar fracture surgery Tonsillectomy Deviated nasal septal repair Family History Patient's mother age 82 of lung cancer. The patient's father age 75 of alcoholism and lung cancer. Social History Patient says he quit tobacco smoking in his 20s. But he says he still smokes over the years, but he is referring to marijuana. In the past he has had hallucinogens and a fair amount of alcohol (3-4 beers daily) although he stopped alcohol about 3 years ago. 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 Smoking Status: Former smoker Smokeless Tobacco Use: No Alcohol Use: none Drug Use: marijuana Marital Status: single Housing Status: fpc Occupation Status: retired, disabled Allergies Coded Allergies: Iodinated Diagnostic Agents (Verified Allergy, Unknown, SKIN FLUSHES, 04/04) Current Inpatient Medications Current Inpatient Medications Medications (Trade) Dose Ordered Sig/Alison Route Start Time Stop Time Status Last Admin Dose Admin Sodium Chloride 1,000 ml @ 80 mls/hr [id number] IV 04/04/18 18:15 05/04/18 18:14 04/05/18 08:26 80 MLS/HR Acetaminophen (Tylenol Tab) 650 mg Q4H PRN PO 04/04/18 16:15 05/04/18 16:14 04/04/18 21:28 650 MG Al Hydrox/Mg Hydrox/Simethicone (Maalox Max Susp) 15 ml Q4H PRN PO 04/04/18 16:15 05/04/18 16:14 Magnesium Hydroxide (Milk Of Magnesia Susp) 30 ml Q12H PRN PO 04/04/18 16:15 05/04/18 16:14 Ondansetron HCl (Zofran Inj) 4 mg Q6H PRN IV 04/04/18 16:15 05/04/18 16:14 Polyethylene (Miralax Powder Packet) 17 gm DAILY PRN PO 04/04/18 16:15 05/04/18 16:14 Miscellaneous (Iv Fluids Completed) 1 ea PRN PRN N/A 04/04/18 16:30 04/04/19 16:29 Carbidopa/Levodopa (Sinemet 25/ 100MG Tab) 2 tab TID PO 04/04/18 21:00 05/04/18 20:59 04/05/18 08:21 2 TAB Docusate Sodium (coLACE CAP) 100 mg BID PO 04/04/18 21:00 05/04/18 20:59 04/05/18 08:20 100 MG Lidocaine (Lidoderm Patch 5%) 1 patch DAILY TD 04/05/18 09:00 05/05/18 08:59 04/05/18 08:23 1 PATCH Lisinopril (Zestril Tab) 10 mg DAILY PO 04/05/18 09:00 05/05/18 08:59 04/05/18 08:22 10 MG Potassium Chloride (Klor-Con M10) 10 meq DAILY PO 04/05/18 09:00 05/05/18 08:59 7/21/18 08:23 10 MEQ Tolterodine Tartrate (Detrol LA Cap) 2 mg BID PO 04/04/18 21:00 05/04/18 20:59 04/05/18 08:21 2 MG Trazodone HCl (Desyrel Tab) 25 mg BID PO 04/04/18 21:00 05/04/18 20:59 04/05/18 08:20 25 MG Miscellaneous (Remove Lidoderm Patch) 1 ea DAILY@21 N/A 04/04/18 21:00 05/04/18 20:59 Pramipexole Dihydrochloride (miraPEX TAB) 1 mg QAM PO 04/05/18 09:00 05/05/18 08:59 04/05/18 08:22 1 MG Review of Systems Constitutional: + weakness, + fatigue Eyes: + worsening of vision, No diplopia ENT: No tinnitus, No trouble swallowing Respiratory: No cough, No shortness of breath Cardiovascular: No palpitations Abdomen: No pain, No nausea Musculoskeletal: No joint pain, No muscle pain Genitourinary - Male: No dysuria, No urinary incontinence Neurologic: + memory loss, + weakness, + balance problems, No numbness/tingling , No vertigo Psychiatric: + depression symptoms, No anxiety Endocrine: + fatigue Hematologic / Lymphatic: No abnormal bleeding/bruising Integumentary: No rash Allergic / Immunologic: No hives Physical Exam Vital Signs (Past 24 Hrs): Date Time Temp Pulse Resp B/P (MAP) Pulse Ox O2 Delivery O2 Flow Rate FiO2 04/05/18 08:00 Room Air 04/05/18 06:57 36.6 63 18 97/61 (73) 98 Room Air 88/51 (63) 04/05/18 03:39 36.8 78 18 99/62 (74) 94 Room Air 04/04/18 23:09 36.7 78 18 90/56 (67) 97 Room Air 04/04/18 20:37 104/64 (77) 04/04/18 20:00 Room Air 04/04/18 19:11 36.5 83 20 98/63 (75) 97 Room Air 04/04/18 18:17 36.4 87 18 117/66 97 Room Air 04/04/18 17:49 36.7 85 18 110/65 98 /18 16:47 85 7/2018 16:35 84 18 7 16:05 66 13 7/18 16:01 110/65 04/04/18 15:35 61 15 72018 15:05 63 18 7/18 15:01 103/63 18 14:35 71 15 04/04/18 14:30 69 14 04/04/18 14:01 109/66 04/04/18 14:00 78 21 718 12:46 70 15 106/65 98 Room Air 04/04/18 12:44 75 04/04/18 12:36 75 20 75/40 97 Room Air 04/04/18 12:29 73 10 99/53 98 Room Air 04/04/18 11:35 36.7 82 16 102/64 97 Room Air Patient is left-handed. The patient is mildly sleepy but arouses easily with voice and hold a conversation. Speech is soft but intelligible without any specific aphasia or dysarthria. Mentation and thought processes are slow with partial orientation and fund of knowledge. He knows his name the day of the week, the year, president, and left from right. He did not know the month or date or where he was. He believes he is in his "new home" (which is not [facility]). Mood is reasonable and affect is very flat. Appearance and grooming are normal. Long- term memory is reasonable although he has gaps and short-term memory is poor. The discs are sharp with positive venous pulsations. There are no exudates, hemorrhages, or blood vessel changes seen. Pupils are 3mm bilaterally and reactive to light. Extraocular eye muscles are intact without nystagmus. Visual acuity and visual salas seem normal grossly to confrontation. He has a masklike face with decreased blink rate. He has a negative glabellar sign. There are no deficits to sensation of the face bilaterally. Corneal reflexes are positive bilaterally. Facial strength and symmetry is normal bilaterally. Hearing seems intact grossly to voice and finger rub. Palate moves well without asymmetry. There is normal sternocleidomastoid and trapezius strength bilaterally. Tongue is midline with good strength bilaterally. Neck is with full range of motion without discomfort. There are no cervical bruits. There are no cranial or ocular bruits. Heart is without murmur. Cervical, thoracic, and lumbar spine are nontender to palpation. Gait is extremely poor and he cannot maintain a standing posture by himself. He has severe bradykinesia and needs help getting from lying to sitting or sitting to standing. He is very bradykinetic with his 1st step and loses his balance. With outstretched arms there is no drift. There are no resting, postural, or action tremors. There is no ataxia with [id number] testing. There is mild decreased facility in the hands. There are no abnormal involuntary movements noted. Motor strength is 5/5 diffusely in the arms bilaterally including deltoids, biceps, brachioradialis, wrist flexors and extensors, terrazzo layer, and intrinsic hand muscles. Motor strength is 5/5 diffusely in the legs bilaterally including hip flexors, quadriceps, hamstring, gastrocnemius, tibialis anterior, tibialis posterior, and peroneii muscles bilaterally. Toe extensors are normal and there is good bulk in the extensor digitorum brevis muscle bilaterally. The limbs have good tone without rigidity or spasticity, and there is no atrophy noted. He does have generalized bradykinesia Muscle bulk is normal, there is no tenderness, no myotonia noted to percussion, and no fasciculations seen. Sensory examination is intact to pin and touch throughout all four limbs. Reflexes are 0/4 in the biceps, triceps, brachioradialis, quadriceps, and Achilles tendons bilaterally. Toes are downgoing with plantar stimulation bilaterally. Peripheral pulses are present and of normal quality distally in all four limbs. There is no peripheral edema noted. Laboratory Results Past 24 Hours: 04/04/18 12:33 Red Blood Count 3.85, Mean Corpuscular Volume 88.1, Mean Corpuscular Hemoglobin 29.4, Mean Corpuscular Hemoglobin Concent 33.3, Mean Platelet Volume 9.2, Neutrophils (%) (Auto) 62.7, Lymphocytes (%) (Auto) 26.4, Monocytes (%) (Auto) 8.5, Eosinophils (%) (Auto) 1.6, Basophils (%) (Auto) 0.4, Neutrophils # (Auto) 3.16, Lymphocytes # (Auto) 1.33, Monocytes # (Auto) 0.43, Eosinophils # (Auto) 0.08, Basophils # (Auto) 0.02 04/04/18 12:33 Test 04/04/18 12:33 04/04/18 12:51 04/04/18 14:10 04/04/18 15:13 White Blood Count 5.04 K/uL (4.8-10.8) Red Blood Count 3.85 M/uL (4.7-6.1) Hemoglobin 11.3 g/dL (14.0-18.0) Hematocrit 33.9 % (42-52) Mean Corpuscular Volume 88.1 fL (80-100) Mean Corpuscular Hemoglobin 29.4 pg (25-34) Mean Corpuscular Hemoglobin Concent 33.3 g/dl (32-36) Platelet Count 280 K/uL (130-400) Mean Platelet Volume 9.2 fL (7.4-10.4) Neutrophils (%) (Auto) 62.7 % Lymphocytes (%) (Auto) 26.4 % Monocytes (%) (Auto) 8.5 % Eosinophils (%) (Auto) 1.6 % Basophils (%) (Auto) 0.4 % Neutrophils # (Auto) 3.16 K/uL (1.4-6.5) Lymphocytes # (Auto) 1.33 K/uL (1.2-3.4) Monocytes # (Auto) 0.43 K/uL (0.11-0.59) Eosinophils # (Auto) 0.08 K/uL (0-0.5) Basophils # (Auto) 0.02 K/uL (0-0.2) RDW Standard Deviation 54.2 fL (36.4-46.3) RDW Coefficient of Variation 16.8 % (11.5-14.5) Immature Granulocyte % (Auto) 0.4 % Immature Granulocyte # (Auto) 0.02 K/uL (0.00-0.02) Prothrombin Time 10.8 SECONDS (9.0-12.0) Prothromb Time International Ratio 1.0 (0.9-1.1) Activated Partial Thromboplast Time 26.7 SECONDS (21.0-31.0) Partial Thromboplastin Ratio 1.0 Anion Gap 8.0 mmol/L (3-11) Est Creatinine Clear Calc Drug Dose 79.2 ml/min Estimated GFR () 96.6 Estimated GFR (Non- 83.4 BUN/Creatinine Ratio 32.1 (10-20) Calcium Level 8.8 mg/dl (8.5-10.1) Magnesium Level 2.4 mg/dl (1.8-2.4) Total Bilirubin 0.4 mg/dl (0.2-1) Direct Bilirubin 0.1 mg/dl (0-0.2) Aspartate Amino Transf (AST/SGOT) 19 U/L (15-37) Alanine Aminotransferase (ALT/SGPT) 8 U/L (12-78) Alkaline Phosphatase 81 U/L (45-117) Ammonia 27.3 umol/L (11-32) Troponin I < 0.015 ng/ml (0-0.045) Total Protein 6.9 gm/dl (6.4-8.2) Albumin 3.6 gm/dl (3.4-5.0) Lipase 156 U/L (73-393) Thyroid Stimulating Hormone (TSH) 2.780 uIu/ml (0.300-4.500) Salicylates Level < 1.7 mg/dl (2.8-20) Acetaminophen Level < 2 ug/ml (10-30) Ethyl Alcohol mg/dL < 3.0 mg/dl (0-3) Bedside Glucose 89 mg/dl (70-99) Urine Color YELLOW Urine Appearance CLOUDY (CLEAR) Urine pH 7.5 (4.5-7.5) Urine Specific [place] 1.017 (1.000-1.030) Urine Protein NEG (NEG) Urine Glucose (UA) NEG (NEG) Urine Ketones NEG (NEG) Urine Occult Blood NEG (NEG) Urine Nitrite NEG (NEG) Urine Bilirubin NEG (NEG) Urine Urobilinogen NEG (NEG) Urine Leukocyte Esterase LARGE (NEG) Urine WBC (Auto) >30 /hpf (0-5) Urine RBC (Auto) 0-4 /hpf (0-4) Urine Hyaline Casts (Auto) 1-5 /lpf (0-5) Urine Epithelial Cells (Auto) 0-5 /lpf (0-5) Urine Bacteria (Auto) NEG (NEG) Urine Crystals AMORPHOUS SEDIMENT (NONE Urine Pathogenic Casts /lpf (0) Urine Opiates Screen NEG (NEG) Urine Methadone, Qualitative NEG (NEG) Urine Barbiturates NEG (NEG) Urine Phencyclidine (PCP) Level NEG (NEG) Ur Amphetamine/Methamphetamine NEG (NEG) MDMA (Ecstasy) Screen NEG (NEG) Urine Benzodiazepines Screen NEG (NEG) Urine Cocaine Metabolite NEG (NEG) Urine Marijuana (THC) NEG (NEG) Bedside Lactic Acid Venous 0.48 mmol/L (0.90-1.70) Date/Time Source Procedure Growth Status 04/04/18 18:35 Nasal MRSA DNA Surveillance Screen - Final Specimen Negative for MRSA by DNA Probe Complete Impression 1. Advanced Parkinson's disease This is longstanding and is manifested currently mostly by severe bradykinesia and severe gait instability. Currently he does not have resting tremor or significant rigidity Patient had visual hallucinations likely from his Parkinson's medication and was put on Nulplazid earlier this year. This has helped some. 2. Dementia He has a subcortical/frontal dementia which is progressive and likely secondary to his Parkinson's disease. 3. Depression He apparently has a longstanding history of depression and is currently not on any antidepressants. He is suicidal mainly because he did not like being at his current fpc. He tried to hurt himself by breaking a final record and scratching his arms and legs. 4. Hypersexual behavior on ropinirole in the past. Currently, he is on pramipexole which similarly can give abnormal/compulsive behaviors. It may be contributing to suicidal ideation/depression Plan 1. Discontinue Mirapex 2. Continue carbidopa/levodopa 25/100, at the current dose, 2 tablets 3 times daily 3. Continue Nuplazid comma 17 mg tablets, 2 daily, if we can get the medication (as it is not formulary and has to be brought in) 4. Physical, occupational, and speech therapy consult with increased activity as able as long as he is supervised. He cannot walk on his own. 5. I will defer any psychiatric/mood altering medication initiation to Psychiatry Overall I spent bent a total of 90 minutes with this case including records review, direct evaluation the patient at bedside, discussion of the case with clinical staff, Dr. oWng (psychiatrist), Dr. White (hospitalist) and the patient of self at bedside, including differential diagnosis and treatment options.
[2018-04-05] MEDS: ACETAMINOPHEN 325 MG TAB PO PRN (13:47)
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
--- NOTE | 2018-04-05 17:15 | Progress Note ---
Subjective Date of Service: Apr 05, 2018. Subjective Pt evaluation today including: conversation w/ patient, physical exam Patient provides no significant history. He speaks in a nonsensical fashion and states that he does not want to return to [facility]. Problem List Medical Problems: (1) Abrasion Status: Acute (2) Abrasion Status: Acute (3) Altered mental status Status: Acute (4) Cellulitis Status: Acute (5) Fall Status: Acute (6) Fracture of femoral neck Status: Acute (7) Laceration Status: Acute (8) Self-injurious behavior Status: Acute (9) UTI (urinary tract infection) Status: Acute Review of Systems Constitutional: No fever Eyes: No worsening of vision ENT: No hearing loss Respiratory: No cough Cardiac: No chest pain Abdomen: No pain Musculoskeletal: No joint pain Male : No dysuria Neurologic: No memory loss All Other Systems: Reviewed and Negative Objective Vital Signs Date Time Temp Pulse Resp B/P (MAP) Pulse Ox O2 Delivery O2 Flow Rate FiO2 04/05/18 15:50 86 96 04/05/18 14:48 36.3 91 20 95/59 (71) 100 Room Air 04/05/18 12:28 36.4 73 18 100/63 (75) 99 Room Air 04/05/18 08:00 Room Air 04/05/18 06:57 36.6 63 18 97/61 (73) 98 Room Air 88/51 (63) 04/05/18 03:39 36.8 78 18 99/62 (74) 94 Room Air 04/04/18 23:09 36.7 78 18 90/56 (67) 97 Room Air 04/04/18 20:37 104/64 (77) 04/04/18 20:00 Room Air 04/04/18 19:11 36.5 83 20 98/63 (75) 97 Room Air 04/04/18 18:17 36.4 87 18 117/66 97 Room Air 04/04/18 17:49 36.7 85 18 110/65 98 Physical Exam Comments: General Appearance: no apparent distress, + thin, + pertinent finding (mask- like face with some expression with good eye contact) Head: normocephalic, atraumatic Eyes: sclerae normal ENT: hearing grossly normal Neck: supple, no JVD, trachea midline Respiratory/Chest: lungs clear, normal breath sounds, no respiratory distress, no accessory muscle use Cardiovascular: regular rate, rhythm, no gallop, no murmur Abdomen/GI: normal bowel sounds, non tender, soft Extremities/Musculoskelatal: no calf tenderness, no pedal edema Neurologic/Psych: alert, oriented x 3, + motor weakness (chronic with bradykinesia with movement of arms), Skin: normal color, warm/dry, + pertinent finding (superficial laceration to the b/l wrists/arms and thighs and neck - no active bleeding) Assessment and Plan Mr. Lombardi is a 72 y/o male with PMHx of Parkinson's Disease, Dementia, HTN, HLD, Depression, and GERD who presented to the ED for mental health evaluation. Unresponsive Episode: Autonomic Dysfunction given Parkinson's? - RESOLVED - Per report patient was catatonic with inability to awake even with sternal rub and no pain response - patient's respirations decreased to 10 and BP lowered to 75/40 - upon my assessment patient is alert and oriented - No obvious explanation for unresponsiveness/confusion - UA largely unremarkable but has leuks and WBC and was given Rocephin x 1 but will hold and await cx - lactic was WNL - will monitor for any arrhythmia however EKG looks well Suicidal Ideations and Self-Harm: - Patient expressed that he wanted to as his Parkinsons is advanced and he does not want to be at [facility] - did initially state he would be interested in psychiatric help but then stated if that would help get him out of [facility] - Wounds are superficial to the b/l wrists, thighs, and neck - Will place 1:1 at bedside for safety - Consult psychiatry - discussed with nurse liaison - appreciate input for management [facility] Parkinson's Disease and Dementia: - Review of outpatient notes suggest that he does have pretty advanced Parkinsons with noted decline with hallucinations/confusion - Patient does make some likely inaccurate comments as he kept stating that he doesn't want dialysis but they keep a machine in his room but has no evidence of renal failure? Given how much he has declined this may not be far from baseline with confusion/hallucinations - Will continue Sinemet 2 tabs TID; Mirapex 1 g daily; Trazodone 25 mg BID which was recently started for depression -- Possible Trazadone making things worse given recent initation? - Nuplazid does not appear in meds to order - maybe can be brought in? - Consult Neurology - follows with Dr. Joseph - any medication adjustments vs HTN: - Lisinopril 10 mg daily DVT Prophylaxis: SCDs Code Status: FULL RESUSCITATION Disposition: - Currently residing at [facility], patient may return, however despite not having capacity to make decision. He is actively refusing this. He wants to switch facilities. Will try again with case management and son tomorrow.
[2018-04-06] MEDS: SODIUM CHLORIDE 0.9% 1000ML 1,000 ML IV SCH ×2 (06:57→20:08)
[2018-04-06 07:24] VITALS: BP 129/76; PULSE 76; TEMP 36.6; O2SAT 97
--- NOTE | 2018-04-06 08:06 | Neurology Progress Notes ---
Neurology Progress Note Date of Service Apr 06, 2018. Subjective Patient has a little bit of posterior neck discomfort overnight but is fairly good this morning. He denies headaches, limb pain, dizziness, or vision problems. Nursing reports no new events or problems overnight. Urine is growing greater than 100,000 group B strep. Objective Date Time Temp Pulse Resp B/P (MAP) Pulse Ox O2 Delivery O2 Flow Rate FiO2 04/06/18 07:24 36.6 76 18 129/76 (93) 97 Room Air 04/06/18 00:01 Room Air 04/05/18 22:40 36.4 77 20 107/67 (80) 97 Room Air 04/05/18 19:36 36.8 79 20 92/54 (67) 98 Room Air 04/05/18 19:10 36.8 92 20 100 04/05/18 18:30 36.8 92 20 90/50 (63) 100 Room Air 04/05/18 15:50 86 96 04/05/18 14:48 36.3 91 20 95/59 (71) 100 Room Air 04/05/18 12:28 36.4 73 18 100/63 (75) 99 Room Air Exam: He is awake and alert. Speech is soft but intelligible without aphasia or dysarthria. Mood is reasonable and affect is flat. He has a masklike face and significant bradykinesia in general. Extraocular eye muscles are intact without nystagmus. There is no facial droop. Patient has minimal rigidity but significant bradykinesia in general. Strength is symmetrical and normal in the limbs. Current Inpatient Medications Medications (Trade) Dose Ordered Sig/Alison Route Start Time Stop Time Status Last Admin Dose Admin Sodium Chloride 1,000 ml @ 80 mls/hr [id number] IV 04/04/18 18:15 05/04/18 18:14 04/06/18 06:57 80 MLS/HR Acetaminophen (Tylenol Tab) 650 mg Q4H PRN PO 04/04/18 16:15 05/04/18 16:14 04/05/18 13:47 650 MG Al Hydrox/Mg Hydrox/Simethicone (Maalox Max Susp) 15 ml Q4H PRN PO 04/04/18 16:15 05/04/18 16:14 Magnesium Hydroxide (Milk Of Magnesia Susp) 30 ml Q12H PRN PO 04/04/18 16:15 05/04/18 16:14 Ondansetron HCl (Zofran Inj) 4 mg Q6H PRN IV 04/04/18 16:15 05/04/18 16:14 Polyethylene (Miralax Powder Packet) 17 gm DAILY PRN PO 04/04/18 16:15 05/04/18 16:14 Miscellaneous (Iv Fluids Completed) 1 ea PRN PRN N/A 04/04/18 16:30 04/04/19 16:29 Carbidopa/Levodopa (Sinemet 25/ 100MG Tab) 2 tab TID PO 04/04/18 21:00 05/04/18 20:59 04/05/18 19:48 2 TAB Docusate Sodium (coLACE CAP) 100 mg BID PO 04/04/18 21:00 05/04/18 20:59 04/05/18 19:47 100 MG Lidocaine (Lidoderm Patch 5%) 1 patch DAILY TD 04/05/18 09:00 05/05/18 08:59 04/05/18 08:23 1 PATCH Lisinopril (Zestril Tab) 10 mg DAILY PO 04/05/18 09:00 05/05/18 08:59 04/05/18 08:22 10 MG Potassium Chloride (Klor-Con M10) 10 meq DAILY PO 04/05/18 09:00 05/05/18 08:59 04/05/18 08:23 10 MEQ Tolterodine Tartrate (Detrol LA Cap) 2 mg BID PO 04/04/18 21:00 05/04/18 20:59 04/05/18 19:49 2 MG Trazodone HCl (Desyrel Tab) 25 mg BID PO 04/04/18 21:00 05/04/18 20:59 04/05/18 19:47 25 MG Miscellaneous (Remove Lidoderm Patch) 1 ea DAILY@21 N/A 04/04/18 21:00 05/04/18 20:59 04/05/18 20:51 1 EA Pramipexole Dihydrochloride (miraPEX TAB) 1 mg QAM PO 04/05/18 09:00 05/05/18 08:59 04/05/18 08:22 1 MG Impression 1. Advanced Parkinson's disease This is longstanding and is manifested currently mostly by severe bradykinesia and severe gait instability. Currently, he does not have resting tremor or significant rigidity Patient had visual hallucinations likely from his Parkinson's medication and was put on Nulplazid earlier this year. This had helped some. Currently, he is quite stable since admission with this problem. 2. Dementia He has a subcortical/frontal dementia which is progressive and likely secondary to his Parkinson's disease. This seem stable. 3. Depression He apparently has a longstanding history of depression and is currently not on any antidepressants, except trazodone 25 milligrams twice daily. He was suicidal mainly because he did not like being at his current fpc. He tried to hurt himself by breaking a final record and scratching his arms and legs. Currently he is calm and has no suicidal thoughts Psychiatry is seen the patient yesterday and have elected not to change or add to his medications at this time. Because of his advanced dementia, he would not be a good candidate for psychotherapy. 4. Hypersexual behavior on ropinirole in the past. Currently, he is on pramipexole which similarly can give abnormal/compulsive behaviors. It may be contributing to suicidal ideation/depression 5. Group B strep growing in his urine. Plan 1. I discontinued pramipexole today. 2. Continue carbidopa/levodopa 25/100, at the current dose, 2 tablets 3 times daily 3. Continue Nuplazid comma 17 mg tablets, 2 daily, if we can get the medication (it is not formulary and has to be brought in) 4. Physical, occupational, and speech therapy consult with increased activity as able as long as he is supervised. He cannot walk on his own. 5. Consider antibiotic for urinary tract infection I have no further neurologic testing or treatment recommendations to make at this time. Dr. Joseph will follow the patient as an outpatient.
[2018-04-06] MEDS: DOCUSATE SODIUM 100 MG CAP PO SCH ×2 (09:12→20:09)
[2018-04-06] MEDS: CARBIDOPA/LEVODOPA 25/100MG TAB PO SCH ×3 (09:12→20:09)
[2018-04-06] MEDS: POTASSIUM CHLORIDE 10 MEQ TABCR PO SCH (09:13)
[2018-04-06] MEDS: TOLTERODINE TARTRATE LA 2 MG CAPCR PO SCH ×2 (09:14→20:09)
[2018-04-06] MEDS: LISINOPRIL 10 MG TAB PO SCH (09:14)
[2018-04-06] MEDS: TRAZODONE HCL 50 MG TAB PO SCH ×2 (09:15→20:09)
[2018-04-06] MEDS: LIDODERM (LIDOCAINE) PATCH 5% TD SCH (09:20)
[2018-04-06 14:53] VITALS: BP 107/67; PULSE 99; TEMP 36.4; O2SAT 100
--- NOTE | 2018-04-06 23:22 | Progress Note ---
Subjective Date of Service: Apr 06, 2018. Subjective Patient has no new complaints. Problem List Medical Problems: (1) Abrasion Status: Acute (2) Abrasion Status: Acute (3) Altered mental status Status: Acute (4) Cellulitis Status: Acute (5) Fall Status: Acute (6) Fracture of femoral neck Status: Acute (7) Laceration Status: Acute (8) Self-injurious behavior Status: Acute (9) UTI (urinary tract infection) Status: Acute Review of Systems Constitutional: No fever Eyes: No worsening of vision ENT: No hearing loss Respiratory: No cough Cardiac: No chest pain Abdomen: No pain Musculoskeletal: No joint pain Male : No dysuria Neurologic: No memory loss Psychiatric: + depression symptoms Heme: No abnormal bleeding/bruising Endo: No fatigue Skin: No rash All Other Systems: Reviewed and Negative Objective Vital Signs Date Time Temp Pulse Resp B/P (MAP) Pulse Ox O2 Delivery O2 Flow Rate FiO2 04/06/18 16:00 Room Air 04/06/18 14:53 36.4 99 18 107/67 (80) 100 Room Air 04/06/18 08:00 Room Air 04/06/18 07:24 36.6 76 18 129/76 (93) 97 Room Air 04/06/18 00:01 Room Air Physical Exam Comments: General Appearance: no apparent distress, + thin, + pertinent finding (mask- like face with some expression with good eye contact) Head: normocephalic, atraumatic Eyes: sclerae normal ENT: hearing grossly normal Neck: supple, no JVD, trachea midline Respiratory/Chest: lungs clear, normal breath sounds, no respiratory distress, no accessory muscle use Cardiovascular: regular rate, rhythm, no gallop, no murmur Abdomen/GI: normal bowel sounds, non tender, soft Extremities/Musculoskelatal: no calf tenderness, no pedal edema Neurologic/Psych: alert, oriented x 3, + motor weakness (chronic with bradykinesia with movement of arms), Skin: normal color, warm/dry, + pertinent finding (superficial laceration to the b/l wrists/arms and thighs and neck - no active bleeding) Assessment and Plan Mr. Lombardi is a 72 y/o male with PMHx of Parkinson's Disease, Dementia, HTN, HLD, Depression, and GERD who presented to the ED for mental health evaluation. Unresponsive Episode: Autonomic Dysfunction given Parkinson's? - RESOLVED - Per report patient was catatonic with inability to awake even with sternal rub and no pain response - patient's respirations decreased to 10 and BP lowered to 75/40 - upon my assessment patient is alert and oriented - No obvious explanation for unresponsiveness/confusion - UA largely unremarkable but has leuks and WBC and was given Rocephin x 1 but will hold and await cx - lactic was WNL - will monitor for any arrhythmia however EKG looks well will hold anymore antibiotics Suicidal Ideations and Self-Harm: - Patient expressed that he wanted to as his Parkinsons is advanced and he does not want to be at [facility] - did initially state he would be interested in psychiatric help but then stated if that would help get him out of [facility] - Wounds are superficial to the b/l wrists, thighs, and neck - Will place 1:1 at bedside for safety initally/ now on q15 minutes - Consult psychiatry - discussed with nurse liaison - appreciate input for management Ok to return to [facility] after psych eval. Parkinson's Disease and Dementia: - Review of outpatient notes suggest that he does have pretty advanced Parkinsons with noted decline with hallucinations/confusion - Patient does make some likely inaccurate comments as he kept stating that he doesn't want dialysis but they keep a machine in his room but has no evidence of renal failure? Given how much he has declined this may not be far from baseline with confusion/hallucinations - Will continue Sinemet 2 tabs TID; Mirapex 1 g daily; Trazodone 25 mg BID which was recently started for depression -- Possible Trazadone making things worse given recent initation? - Nuplazid does not appear in meds to order - maybe can be brought in? - Consult Neurology - follows with Dr. Joseph - any medication adjustments vs HTN: - Lisinopril 10 mg daily DVT Prophylaxis: SCDs Code Status: FULL RESUSCITATION Disposition: - Currently residing at [facility], patient may return, however despite not having capacity to make decision. He is actively refusing this. He wants to switch facilities. Despite multiple meetings with myself and case management, patient still does not want to return to [facility]. I do not want to remove him physically from the hospital. Will try to obtain a referral to a different facility.
[2018-04-07] VITALS: O2SAT 100
[2018-04-07] MEDS ORDERED: hydrOXYzine HCL 25 MG TAB PO PRN (01:15)
[2018-04-07 07:46] VITALS: BP 122/73; PULSE 74; TEMP 36.6; O2SAT 98
[2018-04-07 08:00] VITALS: O2SAT 98
[2018-04-07] MEDS: SODIUM CHLORIDE 0.9% 1000ML 1,000 ML IV SCH (08:02)
[2018-04-07] MEDS: TRAZODONE HCL 50 MG TAB PO SCH ×2 (08:02→20:26)
[2018-04-07] MEDS: DOCUSATE SODIUM 100 MG CAP PO SCH ×2 (08:03→20:26)
[2018-04-07] MEDS: TOLTERODINE TARTRATE LA 2 MG CAPCR PO SCH ×2 (08:03→20:25)
[2018-04-07] MEDS: POTASSIUM CHLORIDE 10 MEQ TABCR PO SCH (08:03)
[2018-04-07] MEDS: CARBIDOPA/LEVODOPA 25/100MG TAB PO SCH ×3 (08:03→20:26)
[2018-04-07] MEDS: LISINOPRIL 10 MG TAB PO SCH (08:03)
[2018-04-07] MEDS: LIDODERM (LIDOCAINE) PATCH 5% TD SCH (08:07)
[2018-04-07] MEDS: ACETAMINOPHEN 325 MG TAB PO PRN (08:09)
[2018-04-07] MEDS ORDERED: AMOXICILLIN 500 MG CAP PO ONE (08:15)
--- NOTE | 2018-04-07 13:55 | Hospitalist Progress Note ---
Hospitalist Progress Note Date of Service Apr 07, 2018. Subjective Pt evaluation today including: conversation w/ patient, physical exam, chart review, lab review, review of studies, review of inpatient medication list Patient seen and evaluated. No acute events overnight. Patient appears in good spirits today. Denies SI/plans for self-harm. Really does not want to go back to [facility]. Discussed his UTI today but then fixated on the need for dialysis. Discussed referrals to other facilities but did explain that we will have to see if that gets approved vs return to [facility]. Patient verbalized no other complaints. Superficial cuts scabbed without bleeding or signs of infection. Constitutional: No fever, No chills Respiratory: No cough, No shortness of breath Cardiovascular: No chest pain Abdomen: No pain, No nausea, No vomiting, No diarrhea, No constipation Musculoskeletal: No swelling, No calf pain Male : No dysuria Heme: No abnormal bleeding/bruising Medications Current Inpatient Medications Medications (Trade) Dose Ordered Sig/Alison Route Start Time Stop Time Status Last Admin Dose Admin Acetaminophen (Tylenol Tab) 650 mg Q4H PRN PO 04/04/18 16:15 05/04/18 16:14 04/07/18 08:09 650 MG Al Hydrox/Mg Hydrox/Simethicone (Maalox Max Susp) 15 ml Q4H PRN PO 04/04/18 16:15 05/04/18 16:14 Magnesium Hydroxide (Milk Of Magnesia Susp) 30 ml Q12H PRN PO 04/04/18 16:15 05/04/18 16:14 Ondansetron HCl (Zofran Inj) 4 mg Q6H PRN IV 04/04/18 16:15 05/04/18 16:14 Polyethylene (Miralax Powder Packet) 17 gm DAILY PRN PO 04/04/18 16:15 05/04/18 16:14 Miscellaneous (Iv Fluids Completed) 1 ea PRN PRN N/A 04/04/18 16:30 04/04/19 16:29 Carbidopa/Levodopa (Sinemet 25/ 100MG Tab) 2 tab TID PO 04/04/18 21:00 05/04/18 20:59 04/07/18 13:05 2 TAB Docusate Sodium (coLACE CAP) 100 mg BID PO 04/04/18 21:00 05/04/18 20:59 04/07/18 08:03 100 MG Lidocaine (Lidoderm Patch 5%) 1 patch DAILY TD 04/05/18 09:00 05/05/18 08:59 04/07/18 08:07 1 PATCH Lisinopril (Zestril Tab) 10 mg DAILY PO 04/05/18 09:00 05/05/18 08:59 04/07/18 08:03 10 MG Potassium Chloride (Klor-Con M10) 10 meq DAILY PO 04/05/18 09:00 05/05/18 08:59 04/07/18 08:03 10 MEQ Tolterodine Tartrate (Detrol LA Cap) 2 mg BID PO 04/04/18 21:00 05/04/18 20:59 04/07/18 08:03 2 MG Trazodone HCl (Desyrel Tab) 25 mg BID PO 04/04/18 21:00 05/04/18 20:59 04/07/18 08:02 25 MG Miscellaneous (Remove Lidoderm Patch) 1 ea DAILY@21 N/A 04/04/18 21:00 05/04/18 20:59 04/06/18 20:11 1 EA Hydroxyzine HCl (Vistaril Tab) 25 mg QPM PRN PO 04/07/18 01:15 05/07/18 01:14 04/07/18 02:54 25 MG Amoxicillin (Amoxil Cap) 500 mg BID PO 04/07/18 20:00 04/12/18 07:59 Objective Vital Signs Date Time Temp Pulse Resp B/P (MAP) Pulse Ox O2 Delivery O2 Flow Rate FiO2 04/07/18 08:00 98 Room Air 04/07/18 07:46 36.6 74 16 122/73 (89) 98 04/07/18 00:00 100 Room Air 04/06/18 16:00 Room Air 04/06/18 14:53 36.4 99 18 107/67 (80) 100 Room Air Physical Exam General Appearance: no apparent distress Eyes: sclerae normal ENT: hearing grossly normal Neck: supple, no JVD, trachea midline Respiratory/Chest: lungs clear, normal breath sounds, no respiratory distress, no accessory muscle use Cardiovascular: regular rate, rhythm Abdomen: normal bowel sounds, non tender, soft Extremities: no pedal edema Neurologic/Psychiatric: alert, oriented x 3 Skin: + pertinent finding (multiple superficial lacerations to arms/legs b/l and neck - no active bleeding) Assessment and Plan Mr. Lombardi is a 72 y/o male with PMHx of Parkinson's Disease, Dementia, HTN, HLD, Depression, and GERD who presented to the ED for mental health evaluation. Unresponsive Episode: Autonomic Dysfunction given Parkinson's? - RESOLVED - Per report patient was catatonic with inability to awake even with sternal rub and no pain response - patient's respirations decreased to 10 and BP lowered to 75/40 - No further episodes like this since admission Group B Beta Strep UTI: - Amoxicillin 500 mg BID to complete 7 days Suicidal Ideations and Self-Harm: RESOLVED - Patient does exhibit some dementia/confusion and some delusional thinking however currently relates that to not wanting to return to [facility]. States he was very miserable there and would be better off but currently does not have active plan/intentions - Has been evaluated by psychiatry and they are following - no indication for inpatient mental health stay Parkinson's Disease and Dementia: - Will continue Sinemet 2 tabs TID; Trazodone 25 mg BID which was recently started for depression - Nuplazid does not appear in meds to order - maybe can be brought in? - Neurology following - appreciate recommendations - Mirapex was D/Cd HTN: - Lisinopril 10 mg daily DVT Prophylaxis: SCDs Code Status: FULL RESUSCITATION Disposition: Referral to [facility] - possible target? if not approved will need to go to [facility]. - Will update family later today Discharge planning: nursing home facility
[2018-04-07 15:33] VITALS: BP 102/66; PULSE 83; O2SAT 97
[2018-04-07] MEDS: AMOXICILLIN 500 MG CAP PO SCH (20:24)
[2018-04-07 23:28] VITALS: BP 90/53; PULSE 84; TEMP 36.6; O2SAT 97
[2018-04-08] VITALS: O2SAT 100
[2018-04-08 07:38] VITALS: BP 127/52; PULSE 69; TEMP 36.8; O2SAT 98
[2018-04-08 08:00] VITALS: O2SAT 98
[2018-04-08] MEDS: LISINOPRIL 10 MG TAB PO SCH (08:24)
[2018-04-08] MEDS: TOLTERODINE TARTRATE LA 2 MG CAPCR PO SCH ×2 (08:24→20:48)
[2018-04-08] MEDS: LIDODERM (LIDOCAINE) PATCH 5% TD SCH (08:24)
[2018-04-08] MEDS: TRAZODONE HCL 50 MG TAB PO SCH ×2 (08:24→20:42)
[2018-04-08] MEDS: AMOXICILLIN 500 MG CAP PO SCH ×2 (08:24→20:42)
[2018-04-08] MEDS: CARBIDOPA/LEVODOPA 25/100MG TAB PO SCH ×3 (08:24→20:43)
[2018-04-08] MEDS: DOCUSATE SODIUM 100 MG CAP PO SCH ×2 (08:24→20:42)
[2018-04-08] MEDS: POTASSIUM CHLORIDE 10 MEQ TABCR PO SCH (08:25)
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
[2018-04-08 14:51] VITALS: BP_SYST 92; BP_DIAS 56; BP_DIAS 58; PULSE 82; TEMP 36.6; O2SAT 98
[2018-04-08] MEDS: ACETAMINOPHEN 325 MG TAB PO PRN (18:12)
[2018-04-09 00:10] VITALS: BP 100/62; PULSE 82; TEMP 36.4; O2SAT 96
[2018-04-09 07:29] VITALS: BP 111/69; PULSE 74; TEMP 36.5; O2SAT 98
[2018-04-09 07:45] VITALS: O2SAT 98
[2018-04-09] MEDS: TOLTERODINE TARTRATE LA 2 MG CAPCR PO SCH ×2 (07:49→20:33)
[2018-04-09] MEDS: TRAZODONE HCL 50 MG TAB PO SCH ×3 (07:50→20:32)
[2018-04-09] MEDS: POTASSIUM CHLORIDE 10 MEQ TABCR PO SCH (07:50)
[2018-04-09] MEDS: CARBIDOPA/LEVODOPA 25/100MG TAB PO SCH ×3 (07:50→20:32)
[2018-04-09] MEDS: AMOXICILLIN 500 MG CAP PO SCH ×2 (07:51→20:32)
[2018-04-09] MEDS: DOCUSATE SODIUM 100 MG CAP PO SCH ×2 (07:51→20:31)
[2018-04-09] MEDS: LIDODERM (LIDOCAINE) PATCH 5% TD SCH (07:51)
[2018-04-09] MEDS: LISINOPRIL 10 MG TAB PO SCH (07:51)
[2018-04-09] MEDS: ACETAMINOPHEN 325 MG TAB PO PRN ×2 (10:10→16:08)
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
[2018-04-09 15:43] VITALS: BP 106/68; PULSE 84; TEMP 36.6; O2SAT 98
[2018-04-09 23:59] VITALS: BP 106/58; PULSE 95; TEMP 36.7; O2SAT 96
[2018-04-10] MEDS: CARBIDOPA/LEVODOPA 25/100MG TAB PO SCH ×3 (07:25→19:29)
[2018-04-10] MEDS: TOLTERODINE TARTRATE LA 2 MG CAPCR PO SCH ×2 (07:25→19:27)
[2018-04-10] MEDS: DOCUSATE SODIUM 100 MG CAP PO SCH ×2 (07:25→19:44)
[2018-04-10] MEDS: LISINOPRIL 10 MG TAB PO SCH (07:25)
[2018-04-10] MEDS: TRAZODONE HCL 50 MG TAB PO SCH ×2 (07:25→19:34)
[2018-04-10] MEDS: POTASSIUM CHLORIDE 10 MEQ TABCR PO SCH (07:26)
[2018-04-10] MEDS: LIDODERM (LIDOCAINE) PATCH 5% TD SCH (07:26)
[2018-04-10] MEDS: AMOXICILLIN 500 MG CAP PO SCH ×2 (07:26→19:27)
[2018-04-10 07:58] VITALS: BP 129/71; PULSE 80; TEMP 36.7; O2SAT 98
[2018-04-10 08:00] VITALS: O2SAT 98
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
[2018-04-10 15:48] VITALS: BP 108/65; PULSE 85; TEMP 36.6; O2SAT 98
[2018-04-10] MEDS: ACETAMINOPHEN 325 MG TAB PO PRN (19:37)
[2018-04-10 23:33] VITALS: BP 105/67; PULSE 81; TEMP 36.6; O2SAT 97
[2018-04-11 04:16] VITALS: BP 126/77; PULSE 77; TEMP 36.6; O2SAT 98
[2018-04-11] MEDS: ACETAMINOPHEN 325 MG TAB PO PRN (04:19)
[2018-04-11 07:34] VITALS: BP 120/73; PULSE 85; TEMP 36.5; O2SAT 98
[2018-04-11] MEDS: AMOXICILLIN 500 MG CAP PO SCH (08:27)
[2018-04-11] MEDS: DOCUSATE SODIUM 100 MG CAP PO SCH (08:28)
[2018-04-11] MEDS: TRAZODONE HCL 50 MG TAB PO SCH (08:28)
[2018-04-11] MEDS: TOLTERODINE TARTRATE LA 2 MG CAPCR PO SCH (08:28)
[2018-04-11] MEDS: POTASSIUM CHLORIDE 10 MEQ TABCR PO SCH (08:29)
[2018-04-11] MEDS: CARBIDOPA/LEVODOPA 25/100MG TAB PO SCH ×2 (08:29→13:52)
[2018-04-11] MEDS: LISINOPRIL 10 MG TAB PO SCH (08:30)
[2018-04-11] MEDS: LIDODERM (LIDOCAINE) PATCH 5% TD SCH (08:33)
[2018-04-11] MEDS ORDERED: OXYC1CAP5 PO (12:01)
--- NOTE | 2018-04-11 12:10 | Discharge Instructions ---
Discharge Instructions Date of Service Apr 11, 2018. Admission Reason for Admission: Altered Mental Status, Self-Injurious Behavior Discharge Discharge Diagnosis / Problem: Self-Injury; Urinary Tract Infection Discharge Goals Goal(s): Increase independence, Improve disease control, Improve nutritional status Activity Recommendations Activity Level: Up Ad Felisha . Additional Information Patient informed of condition: Yes Advance Directives: No DNR: No Level of Care: Skilled Communicable Disease: No Prognosis: Stable Instructions / Follow-Up Instructions / Follow-Up Unresponsive Episode: Autonomic Dysfunction given Parkinson's? - RESOLVED - Per report (on admission) patient was catatonic with inability to awake even with sternal rub and no pain response - patient's respirations decreased to 10 and BP lowered to 75/40 - No further episodes like this since admission Group B Beta Strep UTI: RESOLVED - Completed course of Amoxicillin - remains asymptomatic Suicidal Ideations and Self-Harm: RESOLVED - Superficial lacerations of the arms, neck, legs are healing - no signs of infection Parkinson's Disease and Dementia: - Will continue Sinemet 2 tabs TID; Trazodone 25 mg BID which was recently started for depression/sleep - Nuplazid can be continued for hallucinations; Mirapex as been discontinued - Recommend to continue to follow-up with Dr. Joseph his neurologist - recommend F/U in next 2-3 weeks if possible HTN: - Lisinopril 10 mg daily Fenofibrate: - We had two dosing for this in our records. Would just recommend using the dose he was using prior to coming to the hospital Code Status: FULL RESUSCITATION Disposition: Will return to [facility]; Office of Aging following Current Hospital Diet Patient's current hospital diet: Regular Diet Discharge Diet Recommended Diet: Regular Diet Pending Studies Studies pending at discharge: no Medical Emergencies . Who to Call and When: Medical Emergencies: If at any time you feel your situation is an emergency, please call 911 immediately. . Non-Emergent Contact Non-Emergency issues call your: Primary Care Provider Call Non-Emergent contact if: you have a fever, your pain is concerning you, you have any medication questions . . "Provider Documentation" section prepared by Bety Link. . Core Measure Problem Core Measures: None
[2018-04-11 13:43] VITALS: BP 120/73; PULSE 85; TEMP 36.5; O2SAT 98
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
== END 2018-04-11 15:20 | DRG 57 ==
LOC: EDBD 11:23 → C.EDA 11:24 → C.2T 16:13 → ENRESERV 17:15 → C.4E 04-05 19:13 → OBSVTOIN 04-07 06:38
PROVIDERS: ADMIT Internal Medicine Sports Medicine; ATTEND Internal Medicine
DX: G31.83 Neurocognitive disorder with Lewy bodies (principal); F02.81 Dementia in other diseases classified elsewhere, unspecified severity, with behavioral disturbance; N39.0 Urinary tract infection, site not specified; R45.851 Suicidal ideations; B95.1 Streptococcus, group B, as the cause of diseases classified elsewhere; F32.9 Major depressive disorder, single episode, unspecified; S60.911A Unspecified superficial injury of right wrist, initial encounter; S60.912A Unspecified superficial injury of left wrist, initial encounter; S70.921A Unspecified superficial injury of right thigh, initial encounter; S70.922A Unspecified superficial injury of left thigh, initial encounter; S10.90XA Unspecified superficial injury of unspecified part of neck, initial encounter; X78.8XXA Intentional self-harm by other sharp object, initial encounter; Y92.129 Unspecified place in nursing home as the place of occurrence of the external cause; I10 Essential (primary) hypertension; E78.5 Hyperlipidemia, unspecified; K21.9 Gastro-esophageal reflux disease without esophagitis; F12.90 Cannabis use, unspecified, uncomplicated; Z87.891 Personal history of nicotine dependence; Z79.899 Other long term (current) drug therapy; Z91.041 Radiographic dye allergy status

== ENCOUNTER → 2018-04-21 | Outpatient (CLI) | payer OTHER ==
[~2018-04-21] MED LIST changes: -ACET-1256 PO; +ACET-1693 PO; -AMAN100C18 PO; -AMOX875T PO; -ASPCH81X PO; +BISA10SU38 PR; -CEPH500C PO; +DOCU-94 PO; +DTRSR/2 PO; +ERGO500037 PO; -FENO160T PO; +FENO1CAP; -LORA-741 PO; +MAGNSUS73 PO; -MULTTAB63 PO; -OMEP20TA PO; +OXYC1CAP5 PO; +PIMA17TA PO; +POLY335019 PO; -POTA10CA28 PO; +POTA10TA32 PO; -PRAM1TAB10 PO; +PRLSR20 PO; +SODI1ENE PR; +TRAZ50TA35 PO; -ZOLP10TA PO
== END | disposition home or self-care (01) ==
LOC: C.LABUPHEI 09:04
PROVIDERS: ATTEND Nurse Practitioner Family
DX: M85.80 Other specified disorders of bone density and structure, unspecified site (principal)

== ENCOUNTER 2019-07-04 18:43 | Inpatient (IN) ==
--- NOTE | 2019-07-04 19:33 | CT Scan Report ---
CT chest wo con CT DOSE: HISTORY: Pain fall, pain, neg plain films, cont pain TECHNIQUE: Multiaxial CT images of the chest were performed without contrast. A dose lowering techni que was utilized adhering to the principles of ALARA. COMPARISON: None. FINDINGS: The lungs are clear. The mediastinal vascular structures are within normal limits. No media stinal or hilar lymphadenopathy. No pleural effusion or pneumothorax. Limited views of the upper abdo men demonstrate a normal liver and spleen. Mild emphysematous change. Nondisplaced cortical fractures anterior right fourth through seventh ribs. IMPRESSION: 1. Nondisplaced cortical fractures right anterior fourth through seventh ribs. 2. Mild emphysematous change. 3. No additional acute abnormality. The above report was generated using voice recognition software. It may contain grammatical, syntax or spelling errors. Electronically signed by: Darion Major M.D. 07/04/2019 7:32 PM
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
--- NOTE | 2019-07-04 20:11 | Emergency Department Note ---
Entered by Shelia Iglesias acting as a scribe for Sushant Pearson MD History of Present Illness General Chief complaint: Hip Pain Stated complaint: HIP PAIN Time Seen by Provider: 07/04/19 18:52 Source: patient and EMS History of Present Illness Onset (ago): day(s) (8) Location: lower extremity Pain Consistency: + intermittent Quality: + other (right hip pain) Exacerbated By: + other (placing weight on the right leg, lying on the right side) Associated symptoms: + other (numbness in both feet); no shortness of breath The patient is a 73 year old male who presents to the Emergency Room with compla ints of intermittent right hip pain beginning after a fall that occurred 8 days ago. The patient reports very little pain while lying or sitting still, but states the pain increases when he places any weight on that leg. The patient notes he is unable to walk or lie on his right side. The patient denies shortness of breath. The patient states he was seen in the ER after the fall, but nothing was broken. EMS reports numbness in both of the patient's feet. The patient was seen in the ER on June 26, 2019 after the fall and received x-rays of the chest, femur, and pelvis. Home Medications Home Medications Medication Instructions Recorded Confirmed Type acetaminophen [Acetaminophen Extra 500 mg PO Q4H PRN MDD 3 GMS 07/08/18 07/04/19 History Strength] APAP/24 HOURS capsaicin [Salonpas-Hot] 1 patch TOPICAL DAILY PRN 07/08/18 07/04/19 History carbidopa-levodopa 1 tab PO TID 07/08/18 07/04/19 History ergocalciferol (vitamin D2) 50,000 unit PO WK 07/08/18 07/04/19 History [Vitamin D2] guaifenesin [Mucinex] 600 mg PO Q12H PRN 07/08/18 07/04/19 History lisinopril 10 mg PO DAILY 07/08/18 07/04/19 History magnesium hydroxide [Milk of 30 ml PO DAILY PRN 07/08/18 07/04/19 History Magnesia] potassium chloride 10 meq PO DAILY 07/08/18 07/04/19 History albuterol sulfate [Ventolin HFA] 2 puff INHALATION .Q4-6 HOURS PRN 06/26/19 07/04/19 History finasteride 5 mg PO QAM 06/26/19 07/04/19 History lorazepam 0.5 mg PO BID 06/26/19 07/04/19 History lorazepam 0.5 mg PO BID PRN 06/26/19 07/04/19 History melatonin 5 mg PO HS 06/26/19 07/04/19 History pantoprazole 40 mg PO QAM 06/26/19 07/04/19 History sertraline 100 mg PO DAILY 06/26/19 07/04/19 History Allergies Allergy/AdvReac Type Severity Reaction Status Date / Time Iodinated Contrast Media Allergy Unknown SKIN Verified 07/04/19 21:48 FLUSHES Past Med/Surg History Medical History Alzheimer disease Parkinson disease Dementia Surgical History No pertinent past surgical history Family History Other No pertinent family history in first degree relatives Social History Preferred Language: Divehi Communication Ability: Effective Beliefs That Will Affect Care: None Current Living Situation: Personal Care Facility current occupational status: employed Other Information That Helps Us Care for You: No Feels Safe at Home: Yes Safety Concerns: Feels Safe At This Time Smoking Status: Former smoker Hx Alcohol Use: Yes Hx Substance Use: Yes substance use type: marijuana Substance Use Type Other:: Daily for 50 years Last Used Substance Other:: last used october 2017 Review of Systems See HPI for pertinent positives & negatives. and A total of 10 systems reviewed and were otherwise negative Physical Exam Vital Signs Vital Signs - 24 hr 07/04/19 18:56 07/04/19 20:16 Temperature 36.5 C Temperature Source Oral Sepsis Recent Fever Within 48 Hours No Sepsis New/Unexplained Change in Mental Status No Sepsis Action Taken by Nursing No Action Required Pulse Rate 96 H 79 Respiratory Rate 17 14 Respiratory Effort / Characteristics Non-Labored Spontaneous Respiratory Depth Normal Respiratory Pattern Regular Blood Pressure 132/82 150/90 H Blood Pressure Mean 98 110 Pulse Oximetry 95 Oxygen Delivery Method Room Air GENERAL: Patient is in no acute distress. HEENT: No acute trauma, normocephalic atraumatic, mucous membranes moist, no nasal congestion, no scleral icterus. NECK: No stridor, no adenopathy, no meningismus, trachea is midline. LUNGS: Clear to auscultation bilaterally, no wheeze, no rhonchi, breath sounds equal. CHEST: Tender to palpation over right lower lateral and anterior rib. HEART: Without murmurs gallops or rubs, regular rate and rhythm. ABDOMEN: Soft, nontender, bowel sounds positive, no hernias, no peritonitis. EXTREMITIES: Mildly tender to palpation over left lateral hip, no pain to move hip joint, no right leg deformity. No cyanosis or edema, full range of motion of all the joints without pain or difficulty, no signs for acute trauma. NEUROLOGIC: Oriented x 3, no acute motor or sensory deficits, no focal weakness. SKIN: No rash, no jaundice, no diaphoresis. Course 1849: Past medical records reviewed. The patient was evaluated in room C04. A complete history and physical exam was performed. 1944: Upon reevaluation, I discussed findings and results with the patient. He verbalized agreement of the treatment plan. I spoke with Dr. Iyer of the [facility]. The patient will be evaluated for further management and care. Administered Medications Carbidopa/Levodopa (Sinemet 25/100 Mg) 1 tab PO TID LISA Stop: 08/03/19 21:39 Last Admin: 07/04/19 22:48 Dose: 1 tab Documented by: [id number] Heparin Sodium (Porcine) (Heparin Sodium (Porcine)) 5,000 units SQ Q8 LISA Stop: 08/03/19 21:59 Last Admin: 07/04/19 22:49 Dose: 5,000 units Documented by: [id number] Cosigned by: [id number] Lorazepam (Ativan) 0.5 mg PO BID LISA Stop: 08/03/19 21:39 Last Admin: 07/04/19 22:47 Dose: 0.5 mg Documented by: [id number] Oxycodone HCl (Roxicodone Immediate Rel) 5 mg PO Q4H PRN PRN Reason: Pain Stop: 07/18/19 21:39 Last Admin: 07/04/19 23:16 Dose: 5 mg Documented by: [id number] Senna/Docusate Sodium (Senokot S) 1 tab PO BID LISA Stop: 08/03/19 21:39 Last Admin: 07/04/19 22:49 Dose: 1 tab Documented by: [id number] Medical Decision Making Differential Diagnosis Differential diagnosis: Rib fracture, pulmonary contusion, rib contusion, hip fracture, hip contusion or strain, pelvic fracture Medical Records Attestation: I reviewed the patient's medical records. Home Medications Current Medication List: was personally reviewed by me Laboratory Data Attestation: I reviewed the patient's lab results. Result diagrams: 07/04/19 20:08 07/04/19 20:08 Lab Results 07/04/19 07/04/19 Range/Units 20:08 20:08 WBC 8.67 (4.8-10.8) K/uL RBC 4.45 L (4.7-6.1) M/uL Hgb 13.7 L (14.0-18.0) g/dL Hct 39.4 L (42-52) % MCV 88.5 (80-100) fL MCH 30.8 (25-34) pg MCHC 34.8 (32-36) g/dL RDW Std Deviation 45.1 (36.4-46.3) fL RDW Coeff of David 13.8 (11.5-14.5) % Plt Count 233 (130-400) K/uL MPV 9.1 (7.4-10.4) fL Sodium 135 L (136-145) mmol/L Potassium 3.9 (3.5-5.1) mmol/L Chloride 103 (98-107) mmol/L Carbon Dioxide 26 (21-32) mmol/L Anion Gap 6.0 (3-11) BUN 17 (7-18) mg/dl Creatinine 0.80 (0.6-1.4) mg/dl Est Cr Clr Drug Dosing 97.0 ml/min Est GFR ( Amer) 103.4 Est GFR (Non-Af Amer) 89.2 BUN/Creatinine Ratio 21.2 H (10-20) Glucose 85 (70-99) mg/dl Calcium 8.6 (8.5-10.1) mg/dl Imaging Data Radiologist's Impression: Radiology results as stated below per my review and the radiologist's interpretation: CT chest wo con CT DOSE: HISTORY: Pain fall, pain, neg plain films, cont pain TECHNIQUE: Multiaxial CT images of the chest were performed without contrast. A dose lowering technique was utilized adhering to the principles of ALARA. COMPARISON: None. FINDINGS: The lungs are clear. The mediastinal vascular structures are within normal limits. No mediastinal or hilar lymphadenopathy. No pleural effusion or pneumothorax. Limited views of the upper abdomen demonstrate a normal liver and spleen. Mild emphysematous change. Nondisplaced cortical fractures anterior right fourth through seventh ribs. IMPRESSION: 1. Nondisplaced cortical fractures right anterior fourth through seventh ribs. 2. Mild emphysematous change. 3. No additional acute abnormality. The above report was generated using voice recognition software. It may contain grammatical, syntax or spelling errors. Electronically signed by: Darion Major M.D. 07/04/2019 7:[address] hip RT wo con CT DOSE: 635.41 mGy.cm HISTORY: Trauma. Pain. fall, cont pain, neg plain films TECHNIQUE: Multiaxial CT images of the right hip were performed and reformatted in the sagittal and coronal plane without the use of contrast. A dose lowering technique was utilized adhering to the principles of ALARA. COMPARISON: None. FINDINGS: Nondisplaced fracture inferior right pubic ring. Moderate degenerative change right hip. No specific acute bony abnormality of the right hip. IMPRESSION: 1. Nondisplaced cortical fracture inferior right pubic ring. 2. No acute process of the right hip. The above report was generated using voice recognition software. It may contain grammatical, syntax or spelling errors. Electronically signed by: Darion Major M.D. 07/04/2019 7:35 PM Blood Pressure Blood Pressure Findings: Elevated blood pressure Blood Pressure Disposition: further management by hospitalist JOAN Narrative The patient presents with persistent right rib pain and right hip pain since falling just over a week ago. His right rib pain worsens with certain movements and how he lays. His right hip pain has increased to the point where he can no longer even walk with his walker. He does not really have much pain if he is still. There has been no shortness of breath or cough. No fever. Patient had a CT of his chest performed, this shows 3 right-sided rib fractures. No pneumothorax. A right hip CT scan was done, there is an inferior pubic ramus fracture. Patient has 3 rib fractures and a right inferior pubic ramus fracture. He is no longer able to ambulate. He will require a hospital stay and likely rehab. I spoke to the patient, I talked with case management. The on-call hospitalist was consulted. Impression & Plan Right rib fracture, Fall, Pelvis fracture, right, Inability to ambulate due to hip Discharge Plan Visit Data *Final* Discharge Date/Time: 07/04/19 21:28 Chief Complaint: Hip Pain Stated Complaint: HIP PAIN ED Provider: Sushant Pearson Discharge Problem: Right rib fracture, Fall, Pelvis fracture, right, Inability to ambulate due to hip Patient Disposition: Being Evaluated by Hospitalist Discharge Instructions Interventions: ED Discharge Assessment Last Done: 07/04/19 21:28 Discharge Problem: Right rib fracture Qualifiers: Encounter type: initial encounter Rib fracture type: multiple ribs Fracture type: closed Qualified Code(s): S22.41XA - Multiple fractures of ribs, right side, initial encounter for closed fracture Fall Qualifiers: Encounter type: initial encounter Qualified Code(s): W19.XXXA - Unspecified fall, initial encounter Pelvis fracture, right Qualifiers: Encounter type: initial encounter Pelvic bone location: pubis Sublocation of pubis: unspecified portion of pubis Fracture type: closed Qualified Code(s): S32 .501A - Unspecified fracture of right pubis, initial encounter for closed fracture The scribe's documentation has been prepared under my direction and personally reviewed by me in its entirety. I confirm that the note above accurately reflects all work, treatment, procedures, and medical decision making performed by me.
[2019-07-04 20:28] LABS: Hematocrit (blood only) 39.4 % (42-52); Hemoglobin 13.7 g/dL (14.0-18.0); Mean Corpuscular Hemoglobin 30.8 pg (25-34); Mean Corpuscular Hgb Conc 34.8 g/dL (32-36); Mean Corpuscular Volume 88.5 fL (80-100); Mean Platelet Volume 9.1 fL (7.4-10.4); Platelet Count 233 K/uL (130-400); RDW Coefficient of Variation 13.8 % (11.5-14.5); RDW Standard Deviation 45.1 fL (36.4-46.3); Red Blood Count 4.45 M/uL (4.7-6.1); White Blood Count 8.67 K/uL (4.8-10.8)
[2019-07-04 20:43] LABS: BUN Creatinine Ratio 21.2 (10-20); Calcium 8.6 mg/dl (8.5-10.1); Est GFR (African American) 103.4; Est GFR (Non-African American) 89.2; Potassium 3.9 mmol/L (3.5-5.1)
[2019-07-04] MEDS ORDERED: guaiFENesin 600 MG TABCR PO PRN (21:40)
[2019-07-04] MEDS ORDERED: CAPSAICIN TOP PRN (21:40)
[2019-07-04] MEDS ORDERED: OXYCODONE HCL IR 5 MG TAB (IMMEDIATE RELEASE) PO PRN (21:40)
[2019-07-04] MEDS ORDERED: NON-FORMULARY MEDICATION (Melatonin 5 MG) PO SCH (21:40)
[2019-07-04] MEDS ORDERED: MAGNESIUM HYDROXIDE SUSP 30 ML UDC PO PRN (21:40)
[2019-07-04] MEDS ORDERED: ALBUTEROL HFA 8 GM INHALER INH PRN (21:40)
[2019-07-04] MEDS ORDERED: ONDANSETRON INJ 2 MG/ML 2 ML VIAL IV PRN (21:40)
[2019-07-04] MEDS ORDERED: LORazepam 0.5 MG TAB PO PRN (21:40)
--- NOTE | 2019-07-04 21:42 | History and Physical Report ---
DATE OF ADMISSION: 07/04/2019 CHIEF COMPLAINT: Status post fall, ambulatory dysfunction. HISTORY OF PRESENT ILLNESS: This is a 73-year-old male with past medical history significant for Parkinson's disease, history of mild dementia, hx of hallucinations, hypertension, hyperlipidemia, depression, GERD, currently a [facility] resident. His hallucinations were thought to be from anticholinergic and dopamine agonist. Initially Parkinson treatment was stopped when he had hallucinations , but now he is back on Sinemet t.i.d. dose. About a week ago last Saturday while he was ambulating with a walker, he fell on his right side. He was not able to get up and the [facility] staff helped him to get up, but he was able to ambulate with a walker. On Saturday, again when he was getting into bed again he fell and since Saturday he is having ambulatory dysfunction which got progressively worse and today he was not even able to put weight and he was not able to walk, so he came here and imaging studies show right-sided rib fractures and also right inferior pubic rim fracture. Currently resting comfortably and hemodynamically stable. Denies any headache, no dizziness, no blurred visions, no earache, no runny nose, no sore throat, no cough, no fever, no chills. Appetite is okay. Sleeps okay. Has some cough whenever he eats, possible from aspiration, but he is on regular diet. He has rib pain on the right side. No shortness of breath, no fevers or chills, no nausea or vomiting, no abdominal pain, somewhat constipated. He uses stool softeners. Denies any black stools or blood in the stools. Normal bladder movements. No hematuria or burning micturition, no swelling in the legs, no rash. He has some restless legs syndrome, but not on medications currently. ALLERGIES: ENVIRONMENTAL, IODINATED DIAGNOSTIC AGENTS. PAST MEDICAL HISTORY: As mentioned above. PAST SURGICAL HISTORY: Dental surgery, tonsillectomy, adenoidectomy, sinus surgery, thigh surgery as teenager cartilage removed, history of status post back surgery in 2013, status post knee surgery, status post left total hip arthroplasty. FAMILY HISTORY: Significant for father had lung cancer. Mother had lung cancer, eye problems. Father and mother also had hypertension. SOCIAL HISTORY: Currently lives in [facility] resident. No smoking, no alcohol, no drug use. Used cannabis in the past. MEDICATIONS: The patient is on albuterol, Tylenol Extra Strength 500 mg p.o. q. 4 hours p.r.n., albuterol 2 puffs every 6 hours p.r.n., capsaicin patch topically daily, carbidopa/levodopa 10/100 1 tablet p.o. t.i.d., vitamin D 50,000 units p.o. daily, finasteride 5 mg p.o. q.a.m., Mucinex 600 mg p.o. q. 12 hours p.r.n., lisinopril 10 mg p.o. daily, clonazepam 0.5 mg p.o. b.i.d., lorazepam 0.5 mg p.o. b.i.d. p.r.n., milk of magnesia 30 mL p.o. daily p.r.n., melatonin 5 mg p.o. at bedtime, Protonix 40 mg p.o. daily, potassium chloride 10 mEq p.o. daily, sertraline 100 mg p.o. daily. REVIEW OF SYMPTOMS: As per HPI. Rest of review of systems negative. PHYSICAL EXAMINATION: GENERAL: The patient is of moderate build, not in acute distress. VITAL SIGNS: Temperature 36.5, pulse 96, respiratory rate 17, blood pressure 132/82, oxygen 95% room air. HEENT: No pallor, no icterus. Pupils equal, round, reactive to light. Extraocular muscles intact. NECK: No JVD, no neck masses, no carotid bruits. CARDIOVASCULAR: S1, S2 heard, regular rate and rhythm, no murmur, no gallop. RESPIRATORY SYSTEM: Normal AP diameter. No accessory muscle use. No wheezing, no crackles. ABDOMEN: Soft, bowel sounds present, nontender. No distention. CENTRAL NERVOUS SYSTEM: Alert and oriented. Obeys commands. Moves extremities. EXTREMITIES: No edema, no erythema.Callus on distal left big toe-black color LABORATORY DATA: WBC 8.6, hemoglobin 13.7, hematocrit 39.4, platelets 233. Sodium 135, potassium 3.9, chloride 103, bicarbonate 26, BUN 17, creatinine 0.8, serum glucose 85, calcium 8.6. Right hip CT nondisplaced cortical fracture of the inferior right pubic ring, no acute process of the right hip. Chest CT shows nondisplaced cortical fracture of the right anterior 4th through 7th ribs, mild emphysematous changes. ASSESSMENT AND PLAN: This is a 73-year-old male who presents status post fall and ambulatory dysfunction, found to have inferior right pubic ring fracture and also right side rib fracture from 4th to 7th. 1. Fall, ambulatory dysfunction, inferior right pubic ring fracture. We will admit to medical floor. PT and OT, pain control. Consult ortho for further recommendations. 2. Rib fractures from the fall, nondisplaced right anterior 4th and 7th ribs. No pneumothorax on the CAT scan. Pain control, PT, OT. 3. Callus of the left big toe, some black discoloration. If any concerns consult vascular surgery and l do vascular studies. 4. Hypertension. Continue lisinopril. 5. Anxiety. Continue, Ativan and Zoloft. 6. Gastroesophageal reflux disease: Continue PPI. 7. Benign prostatic hypertrophy. Continue finasteride. 8. Parkinson's. Continue current home Sinemet. To avoid anticholinergics or dopamine agonist as per Neurology notes. 9. Deep venous thrombosis prophylaxis: Heparin subcutaneously. 10. Disposition: Admit to medical floor. PT and OT per discharge. Social Service to help with discharge planning. PLAN: The patient may need rehab placement. Social service for d/c planning. CODE STATUS: Full code as per my discussion with the patient. MTDD
[2019-07-04] MEDS: LORazepam 0.5 MG TAB PO SCH (22:47)
[2019-07-04] MEDS: CARBIDOPA/LEVODOPA 25/100MG TAB PO SCH (22:48)
[2019-07-04] MEDS: HEPARIN SOD 5,000 UNIT/0.5 ML VIAL SQ SCH (22:49)
[2019-07-04] MEDS: DOCUSATE SODIUM/SENNA 50/8.6MG TAB PO SCH (22:49)
[2019-07-05] MEDS: HEPARIN SOD 5,000 UNIT/0.5 ML VIAL SQ SCH ×3 (05:30→21:00)
[2019-07-05] MEDS: ACETAMINOPHEN 325 MG TAB PO PRN (05:42)
[2019-07-05 06:06] LABS: Basophils # (auto) 0.03 K/uL (0-0.2); Basophils % (auto) 0.5 %; Eosinophils # (auto) 0.08 K/uL (0-0.5); Eosinophils % (auto) 1.3 %; Hematocrit (blood only) 38.6 % (42-52); Hemoglobin 12.8 g/dL (14.0-18.0); Immature Granulocytes # (auto) 0.04 K/uL (0.00-0.02); Immature Granulocytes % (auto) 0.7 %; Lymphocytes # (auto) 1.38 K/uL (1.2-3.4); Lymphocytes % (auto) 22.5 %; Mean Corpuscular Hemoglobin 29.8 pg (25-34); Mean Corpuscular Hgb Conc 33.2 g/dL (32-36); Mean Platelet Volume 9.2 fL (7.4-10.4); Monocytes # (auto) 0.67 K/uL (0.11-0.59); Monocytes % (auto) 10.9 %; Neutrophils # (auto) 3.92 K/uL (1.4-6.5); Neutrophils % (auto) 64.1 %; Platelet Count 214 K/uL (130-400); RDW Coefficient of Variation 13.7 % (11.5-14.5); RDW Standard Deviation 45.1 fL (36.4-46.3); Red Blood Count 4.29 M/uL (4.7-6.1); White Blood Count 6.12 K/uL (4.8-10.8)
[2019-07-05 06:49] LABS: BUN Creatinine Ratio 20.4 (10-20); Calcium 8.8 mg/dl (8.5-10.1); Creatinine Clr Calc Pharmacy 103.5 ml/min; Est GFR (African American) 106.2; Est GFR (Non-African American) 91.6; Magnesium 2.3 mg/dl (1.8-2.4); Potassium 4.2 mmol/L (3.5-5.1)
[2019-07-05] MEDS: POTASSIUM CHLORIDE 10 MEQ TABCR PO SCH (09:10)
[2019-07-05] MEDS: FINASTERIDE 5 MG TAB PO SCH (09:10)
[2019-07-05] MEDS: SERTRALINE HCL 100 MG TABLET PO SCH (09:10)
[2019-07-05] MEDS: DOCUSATE SODIUM/SENNA 50/8.6MG TAB PO SCH ×2 (09:10→20:57)
[2019-07-05] MEDS: PANTOprazole 40 MG TAB PO SCH (09:11)
[2019-07-05] MEDS: LISINOPRIL 10 MG TAB PO SCH (09:11)
[2019-07-05] MEDS: CARBIDOPA/LEVODOPA 25/100MG TAB PO SCH ×3 (09:11→20:57)
[2019-07-05] MEDS: LORazepam 0.5 MG TAB PO SCH ×2 (09:16→20:57)
--- NOTE | 2019-07-05 10:43 | Hospitalist Progress Note ---
Date of Service July 05, 2019 Assessment & Plan (1) Fall: (2) Acute pain of right hip: (3) Right rib fracture: (4) Pelvis fracture, right: (5) Inability to ambulate due to hip: (6) Parkinson disease: (7) Alzheimer disease: This is a 73-year-old male who presents status post fall and ambulatory dysfunction, found to have inferior right pubic ring fracture and also right side rib fracture from 4th to 7th. 1. Fall, ambulatory dysfunction, inferior right pubic ring fracture. We will admit to medical floor. PT and OT, pain control. Consult ortho for further recommendations. 2. Rib fractures from the fall, nondisplaced right anterior 4th and 7th ribs. No pneumothorax on the CAT scan. Pain control, PT, OT. 3. Callus of the left big toe, some black discoloration. If any concerns consult vascular surgery and l do vascular studies. 4. Hypertension. Continue lisinopril. 5. Anxiety. Continue, Ativan and Zoloft. 6. Gastroesophageal reflux disease: Continue PPI. 7. Benign prostatic hypertrophy. Continue finasteride. 8. Parkinson's. Continue current home Sinemet. To avoid anticholinergics or dopamine agonist as per Neurology notes. 9. Deep venous thrombosis prophylaxis: Heparin subcutaneously. 10. Disposition: Admit to medical floor. PT and OT per discharge. Social Service to help with discharge planning. Labs Checked ROS-No Headache, No Visual Changes, No Nausea, No Vomiting, No Fever, No Chills, No Neck Pain or Stiffness, No Chest Pain, No Palpitations, No SOB, No RODRIGUEZ, No Cough, No Sputum, No Wheezing, No Abdominal Pain, No Diarrhea, No Hematemesis, No Hemoptysis, No Unexpected Weight Loss, No Flank pain, No Melena, No Hematochezia, No Frequency, No Urgency, No Burning, No Hematuria, No Rashes, No Diaphoresis. Appetite is Normal, Sore ribs and R Hip Physical Exam Gen-AAO x 3, NAD, Afebrile, Weak, Parkinsonian Facies Head-NCAT, EOMI, PERRLA, Anicteric Sclera, No Posterior Pharyngeal Erythema Neck-Supple, No JVD, No Thyromegaly, No Masses, No LAD, No Bruits Lungs-Clear to Auscultation Bilaterally, No Rales, No Rhonchi, No Wheezing, No Crepitus Chest-No S4, +S1, +S2, No S3, No Murmurs, No Rubs, No Gallops, No Ectopy Abdomen-Soft, Bowel Sounds Present, Non Tender, Non Distended, No Hepatomegaly, No Splenomegaly, No Palpable Masses, No Rebound, No Rigidity, No Guarding Musculoskeletal-Full Range of Motion Bilaterally, No CVAT Extremities-No Cyanosis, No Clubbing, No Edema Nuero-Cranial Nerves II-XII grossly intact, Motor WNL, DTRs WNL, Strength WNL, Non Focal Psych-Normal Mood Results & Data Vital Signs (Past 12 Hours) Vital Signs Temp Pulse Resp BP Pulse Ox 07/05/19 07:09 36.4 C L 68 16 142/80 H 96 07/04/19 23:32 37.1 C 74 16 144/80 H 92 07/04/19 23:21 36.8 C 76 16 159/93 H 94 (1) Fall Encounter type: initial encounter Qualified Code(s): W19.XXXA - Unspecified fall, initial encounter (2) Right rib fracture Encounter type: initial encounter Fracture type: closed Rib fracture type: multiple ribs Qualified Code(s): S22.41XA - Multiple fractures of ribs, right side, initial encounter for closed fracture (3) Pelvis fracture, right Encounter type: initial encounter Fracture type: closed Pelvic bone location: pubis Sublocation of pubis: unspecified portion of pubis Qualified Code(s): S32.501A - Unspecified fracture of right pubis, initial encounter for closed fracture
--- NOTE | 2019-07-05 10:46 | Orthopedic Consultation ---
Date of Consultation July 05, 2019 Assessment & Plan (1) Pelvis fracture, right: CT scan demonstrates fracture both the superior as well as inferior pubic rami of the right side of the pelvis. I discussed with him that this is an injury that will be able to treated nonoperatively. He may be weightbearing as tolerated on that leg. He is to mobilize as tolerated with physical as well as occupational therapies. I would see him again in my office in 8 weeks for a surveillance x-ray. History of Present Illness Reason for Consultation: Pubic rami fractures Attending Physician: Romero Zavala DO History of Present Illness Patient is a 73-year-old male with past medical history significant for Parkinson's disease who was ambulating with his walker a week from last Saturday was trying to turn and his momentum carried forward and he landed onto the right side. He had pain in the right hip as well as in the right ribs at that time. He is evaluated in the emergency room x-rays were obtained which did not demonstrate any definitive fractures at that time. He continued to have pain and difficulty ambulating. He subsequently presented to the emergency room again and CT scan was obtained which demonstrated nondisplaced pubic rami fractures. Allergies Allergy/AdvReac Type Severity Reaction Status Date / Time Iodinated Contrast Media Allergy Unknown SKIN Verified 07/04/19 21:48 FLUSHES Home Medications Home Medications Medication Instructions Recorded Confirmed Type acetaminophen [Acetaminophen Extra 500 mg PO Q4H PRN MDD 3 GMS 07/08/18 07/04/19 History Strength] APAP/24 HOURS capsaicin [Salonpas-Hot] 1 patch TOPICAL DAILY PRN 07/08/18 07/04/19 History carbidopa-levodopa 1 tab PO TID 07/08/18 07/04/19 History ergocalciferol (vitamin D2) 50,000 unit PO WK 07/08/18 07/04/19 History [Vitamin D2] guaifenesin [Mucinex] 600 mg PO Q12H PRN 07/08/18 07/04/19 History lisinopril 10 mg PO DAILY 07/08/18 07/04/19 History magnesium hydroxide [Milk of 30 ml PO DAILY PRN 07/08/18 07/04/19 History Magnesia] potassium chloride 10 meq PO DAILY 07/08/18 07/04/19 History albuterol sulfate [Ventolin HFA] 2 puff INHALATION .Q4-6 HOURS PRN 06/26/19 07/04/19 History finasteride 5 mg PO QAM 06/26/19 07/04/19 History lorazepam 0.5 mg PO BID 06/26/19 07/04/19 History lorazepam 0.5 mg PO BID PRN 06/26/19 07/04/19 History melatonin 5 mg PO HS 06/26/19 07/04/19 History pantoprazole 40 mg PO QAM 06/26/19 07/04/19 History sertraline 100 mg PO DAILY 06/26/19 07/04/19 History Patient History Medical History Alzheimer disease Parkinson disease Dementia Surgical History History of total left hip arthroplasty No pertinent past surgical history Family History Other No pertinent family history in first degree relatives Social History Preferred Language: Greenlandic Communication Ability: Effective Beliefs That Will Affect Care: None Current Living Situation: Personal Care Facility current occupational status: employed Other Information That Helps Us Care for You: No Feels Safe at Home: Yes Safety Concerns: Feels Safe At This Time Smoking Status: Former smoker Hx Alcohol Use: Yes Hx Substance Use: Yes substance use type: marijuana Substance Use Type Other:: Daily for 50 years Last Used Substance Other:: last used october 2017 Physical Exam Constitutional: WD/WN, vitals as above Neck: normal visual inspection Respiratory: normal respiratory effort Cardiovascular: Rate/Rhythm: regular rate Musculoskeletal: Right lower extremity: 2+ dorsalis pedis pulse. Light touch sensation is intact throughout the extremity. He is able to dorsiflex and plantarflex the foot without deficit. He is able to dorsiflex and plantarflex the great toe without deficit. He has some pain the locates proximally with rotation of the hip. No significant pain with axial load. Pain with flexion of the hip the locates to the region of the groin Results & Data Vital Signs (Past 12 Hours) Vital Signs Temp Pulse Resp BP Pulse Ox 07/05/19 07:09 36.4 C L 68 16 142/80 H 96 07/04/19 23:32 37.1 C 74 16 144/80 H 92 07/04/19 23:21 36.8 C 76 16 159/93 H 94 (1) Pelvis fracture, right Encounter type: initial encounter Fracture type: closed Pelvic bone location: pubis Sublocation of pubis: unspecified portion of pubis Qualified Code(s): S32.501A - Unspecified fracture of right pubis, initial encounter for closed fracture
[2019-07-05] MEDS ORDERED: SODIUM CHLORIDE 0.9% 1000ML 1,000 ML IV SCH (16:30)
--- NOTE | 2019-07-05 18:39 | CT Scan Report ---
HEAD CT NONCONTRAST CT DOSE: 1607.87 mGycm HISTORY: Altered mental status. TECHNIQUE: Multiaxial CT images of the head were performed without the use of intravenous contrast. A utomated exposure control was utilized for this study. A dose lowering technique was utilized adheri ng to the principles of ALARA. Comparison: Head CT 04/04/2018. Findings: The paranasal sinuses and mastoid air cells are clear. The calvarium and skull base are int act. There is no mass, hematoma, midline shift, acute infarct. White matter hypodensity is nonspecifi c but suggestive of microvascular ischemic change. The ventricles and sulci demonstrate mild age-rela nicci involutional changes. No change in the right frontal centrum semiovale hypodensity suggestive of old infarct. Impression: No significant change compared to the prior study. No acute intracranial abnormality. Electronically signed by: Higinio Zarate M.D. 07/05/2019 6:38 PM
[2019-07-05] MEDS: cefTRIAXone SODIUM 2,000 MG in DEXTROSE 5% 50 ML IV SCH (19:18)
[2019-07-06 05:13] LABS: Hemoglobin 12.8 g/dL (14.0-18.0); Mean Corpuscular Hgb Conc 33.7 g/dL (32-36); Mean Platelet Volume 9.2 fL (7.4-10.4); Platelet Count 222 K/uL (130-400); RDW Coefficient of Variation 13.6 % (11.5-14.5); RDW Standard Deviation 44.6 fL (36.4-46.3); Red Blood Count 4.27 M/uL (4.7-6.1); White Blood Count 6.63 K/uL (4.8-10.8)
[2019-07-06] MEDS: HEPARIN SOD 5,000 UNIT/0.5 ML VIAL SQ SCH ×3 (05:23→20:23)
[2019-07-06 05:42] LABS: BUN Creatinine Ratio 22.5 (10-20); Calcium 8.6 mg/dl (8.5-10.1); Creatinine Clr Calc Pharmacy 98.3 ml/min; Est GFR (Non-African American) 89.7; Potassium 4.2 mmol/L (3.5-5.1)
--- NOTE | 2019-07-06 07:01 | Discharge Summary ---
Date of Service July 06, 2019 Admission HPI Per Admitting Provider 73-year-old male with past medical history significant for Parkinson's disease, history of mild dementia, hx of hallucinations, hypertension, hyperlipidemia, depression, GERD, currently a [facility] resident. His hallucinations were thought to be from anticholinergic and dopamine agonist. Initially Parkinson treatment was stopped when he had hallucinations , but now he is back on Sinemet t.i.d. dose. About a week ago last Saturday while he was ambulating with a walker, he fell on his right side. He was not able to get up and the [facility] staff helped him to get up, but he was able to ambulate with a walker. On Saturday, again when he was getting into bed again he fell and since Saturday he is having ambulatory dysfunction which got progressively worse and today he was not even able to put weight and he was not able to walk, so he came here and imaging studies show right-sided rib fractures and also right inferior pubic rim fracture. Currently resting comfortably and hemodynamically stable. Denies any headache, no dizziness, no blurred visions, no earache, no runny nose, no sore throat, no cough, no fever, no chills. Appetite is okay. Sleeps okay. Has some cough whenever he eats, possible from aspiration, but he is on regular diet. He has rib pain on the right side. No shortness of breath, no fevers or chills, no nausea or vomiting, no abdominal pain, somewhat constipated. He uses stool softeners. Denies any black stools or blood in the stools. Normal bladder movements. No hematuria or burning micturition, no swelling in the legs, no rash. He has some restless legs syndrome, but not on medications currently. Admission Exam Per Admitting Provider GENERAL: The patient is of moderate build, not in acute distress. VITAL SIGNS: Temperature 36.5, pulse 96, respiratory rate 17, blood pressure 132/82, oxygen 95% room air. HEENT: No pallor, no icterus. Pupils equal, round, reactive to light. Extraocular muscles intact. NECK: No JVD, no neck masses, no carotid bruits. CARDIOVASCULAR: S1, S2 heard, regular rate and rhythm, no murmur, no gallop. RESPIRATORY SYSTEM: Normal AP diameter. No accessory muscle use. No wheezing, no crackles. ABDOMEN: Soft, bowel sounds present, nontender. No distention. CENTRAL NERVOUS SYSTEM: Alert and oriented. Obeys commands. Moves extremities. EXTREMITIES: No edema, no erythema.Callus on distal left big toe-black color Principal Diagnosis Rib Fractures Pubic Ramus Fracture Falls Amb Dysfunction UTI AMS Dementia SDAT & Parkinson's Discharge Exam ROS-No Headache, No Visual Changes, No Nausea, No Vomiting, No Fever, No Chills, No Neck Pain or Stiffness, No Chest Pain, No Palpitations, No SOB, No RODRIGUEZ, No Cough, No Sputum, No Wheezing, No Abdominal Pain, No Diarrhea, No Hematemesis, No Hemoptysis, No Unexpected Weight Loss, No Flank pain, No Melena, No Hematochezia, No Frequency, No Urgency, No Burning, No Hematuria, No Rashes, No Diaphoresis. Appetite is Normal Physical Exam Gen-AAO x 3, NAD, Afebrile, Flat Head-NCAT, EOMI, PERRLA, Anicteric Sclera, No Posterior Pharyngeal Erythema Neck-Supple, No JVD, No Thyromegaly, No Masses, No LAD, No Bruits Lungs-Clear to Auscultation Bilaterally, No Rales, No Rhonchi, No Wheezing, No Crepitus Chest-No S4, +S1, +S2, No S3, No Murmurs, No Rubs, No Gallops, No Ectopy Abdomen-Soft, Bowel Sounds Present, Non Tender, Non Distended, No Hepatomegaly, No Splenomegaly, No Palpable Masses, No Rebound, No Rigidity, No Guarding Musculoskeletal-Full Range of Motion Bilaterally, No CVAT Extremities-No Cyanosis, No Clubbing, No Edema Nuero-Cranial Nerves II-XII grossly intact, Motor WNL, DTRs WNL, Strength WNL, Non Focal Psych-Normal Mood Discharge Data Allergies Allergy/AdvReac Type Severity Reaction Status Date / Time Iodinated Contrast Media Allergy Unknown SKIN Verified 07/04/19 21:48 FLUSHES Consultations 07/04/19 19:50 ED Decision to Admit Stat 07/04/19 21:40 Consult Case Management - Discharge Planning Routine 07/05/19 08:00 Consult Orthopedic Surgery Routine 07/06/19 07:00 Consult Case Management - Discharge Planning Routine Ordered Studies 07/04/19 18:57 CT chest wo con Stat CT hip RT wo con Stat 07/05/19 17:29 CT head/brain wo con Negative Current Diagnoses Dementia in other diseases classified elsewhere without behavioral disturbance (07/04/19) Parkinson's disease (07/04/19) Alzheimer's disease, unspecified (07/04/19) Pain in right hip (07/04/19) Difficulty in walking, not elsewhere classified (07/04/19) Multiple fractures of ribs, right side, initial encounter for closed fracture (07/04/19) Unspecified fracture of right pubis, initial encounter for closed fracture (07/04/19) Unspecified fall, initial encounter (07/04/19) Allergies Iodinated Contrast Media Allergy (Unknown, Verified 07/04/19 21:48) SKIN FLUSHES Height/Weight/Isolation Height 6 ft 2 in Weight 91.138 kg Chemistry 07/04/19 07/05/19 07/06/19 20:08 05:43 04:54 Sodium 135 L 139 137 Potassium 3.9 4.2 4.2 Chloride 103 105 106 Carbon Dioxide 26 28 26 Anion Gap 6.0 6.0 5.0 BUN 17 15 18 Creatinine 0.80 0.75 0.79 Glucose 85 90 96 Hospital Course (1) Fall: (2) Acute pain of right hip: (3) Right rib fracture: (4) Pelvis fracture, right: (5) Inability to ambulate due to hip: (6) Parkinson disease: (7) Alzheimer disease: This is a 73-year-old male who presents status post fall and ambulatory dysfunction, found to have inferior right pubic ring fracture and also right side rib fracture from 4th to 7th. 1. Fall, ambulatory dysfunction, inferior right pubic ring fracture. We will admit to medical floor. PT and OT, pain control. Consult ortho for further recommendations. 2. Rib fractures from the fall, nondisplaced right anterior 4th and 7th ribs. No pneumothorax on the CAT scan. Pain control, PT, OT rec Acute Rehab. 3. UTI-DC on Omnicef 4. Hypertension. Continue lisinopril. 5. Anxiety. Continue, Ativan and Zoloft. 6. Gastroesophageal reflux disease: Continue PPI. 7. Benign prostatic hypertrophy. Continue finasteride. 8. Parkinson's. Continue current home Sinemet. To avoid anticholinergics or dopamine agonist as per Neurology notes. 9. Disposition: Acute Rehab on DC Labs Checked Total Time Total Time Spent Total Time Spent (In Minutes): 45 mins Total Time Includes: Examination of the Patient, Discharge Planning, Medication Reconciliation and Communication With Other Providers Discharge Plan Discharge Items Patient Disposition: Transfer Inpatient Rehab Fac Reason For Visit: FALL, AMBULATORY DYSFUNCTION Discharge Diagnosis: Rib Fractures Pubic Ramus Fracture Falls Amb Dysfunction UTI AMS Dementia SDAT & Parkinson's Activity: Per Instructions section Activity Comment: WBAT c FWW Lifting: Gradually increase as tolerated Bathing: No limitations Exercise/Sports: None Driving/Machine Use: No Driving Weightbearing: Full weightbearing Non-emergency contact: Primary Care Provider Call non-emergency contact if: you have any medication questions and your symptoms worsen Follow-up/Referrals: Phi Gutierrez [Primary Care Provider] - Diet: Regular Addtl Attending Provider Instructions: Podiatry eval for callus Pending Studies at Discharge: No Stand-Alone Forms: Muzy Skilled Items Patient informed of condition?: Yes DNR: No Discharge Level of Care: Acute rehab Communicable Disease: No Discharge Prognosis: Improving Lines: None Urinary Catheter: No Medications and DC Order Prescriptions: New sennosides-docusate sodium [Senokot-S] 8.6-50 mg Tablet 1 tab PO BID Qty: 30 RF: 0 heparin, porcine (PF) 5,000 unit/0.5 mL Syringe 5,000 unit subcut Q8 Qty: 30 RF: 0 cefuroxime axetil 500 mg tablet 500 mg PO BID 7 Days Qty: 14 RF: 0 Continued sertraline 100 mg tablet 100 mg PO DAILY RF: 0 pantoprazole 40 mg Tablet,Delayed Release (Dr/Ec) 40 mg PO QAM RF: 0 albuterol sulfate [Ventolin HFA] 90 mcg/actuation Hfa Aerosol Inhaler 2 puff INHALATION .Q4-6 HOURS PRN (Reason: Shortness Of Breath Or Wheezing) RF: 0 finasteride 5 mg tablet 5 mg PO QAM RF: 0 melatonin 5 mg Tablet 5 mg PO HS RF: 0 lisinopril 10 mg Tablet 10 mg PO DAILY RF: 0 carbidopa-levodopa 25-100 mg tablet 1 tab PO TID RF: 0 potassium chloride 10 mEq Tablet Extended Release 10 meq PO DAILY RF: 0 acetaminophen [Acetaminophen Extra Strength] 500 mg Tablet 500 mg PO Q4H MDD 3 GMS APAP/24 HOURS PRN (Reason: Pain) RF: 0 magnesium hydroxide [Milk of Magnesia] 400 mg/5 mL Suspension 30 ml PO DAILY PRN (Reason: Constipation) RF: 0 capsaicin [Salonpas-Hot] 0.025 % Adhesive Patch,Medicated 1 patch TOPICAL DAILY PRN (Reason: Pain) RF: 0 ergocalciferol (vitamin D2) [Vitamin D2] 50,000 unit Capsule 50,000 unit PO WK RF: 0 guaifenesin [Mucinex] 600 mg Tablet Extended Release 12hr 600 mg PO Q12H PRN (Reason: Congestion) RF: 0 Discontinued lorazepam 0.5 mg Tablet 0.5 mg PO BID PRN (Reason: Anxiety) RF: 0 lorazepam 0.5 mg tablet 0.5 mg PO BID RF: 0 Admission Data Admit Date/Time: 07/04/19 20:42 Attending Provider: Romero Zavala Admit Provider: Jacob Iyer Primary Care Provider: Phi Gutierrez Other Providers: Jacob Iyer ; Joseph Velázquez ; [facility] ; [facility]
[2019-07-06] MEDS: DOCUSATE SODIUM/SENNA 50/8.6MG TAB PO SCH ×2 (08:47→20:21)
[2019-07-06] MEDS: CARBIDOPA/LEVODOPA 25/100MG TAB PO SCH ×3 (08:47→20:21)
[2019-07-06] MEDS: FINASTERIDE 5 MG TAB PO SCH (08:47)
[2019-07-06] MEDS: POTASSIUM CHLORIDE 10 MEQ TABCR PO SCH (08:47)
[2019-07-06] MEDS: LISINOPRIL 10 MG TAB PO SCH (08:48)
[2019-07-06] MEDS ORDERED: ERGOCALCIFEROL 50,000 UNITS CAP PO SCH (09:00)
[2019-07-06] MEDS: PANTOprazole 40 MG TAB PO SCH (09:24)
[2019-07-06] MEDS: LORazepam 0.5 MG TAB PO SCH ×2 (10:37→20:21)
[2019-07-06] MEDS: SERTRALINE HCL 100 MG TABLET PO SCH (10:37)
--- NOTE | 2019-07-06 16:02 | Hospitalist Progress Note ---
Date of Service July 06, 2019 Assessment & Plan (1) Fall: (2) Acute pain of right hip: (3) Right rib fracture: (4) Pelvis fracture, right: (5) Inability to ambulate due to hip: (6) Parkinson disease: (7) Alzheimer disease: This is a 73-year-old male who presents status post fall and ambulatory dysfunction, found to have inferior right pubic ring fracture and also right side rib fracture from 4th to 7th. 1. Fall, ambulatory dysfunction, inferior right pubic ring fracture. We will admit to medical floor. PT and OT, pain control. Consult ortho for further recommendations. 2. Rib fractures from the fall, nondisplaced right anterior 4th and 7th ribs. No pneumothorax on the CAT scan. Pain control, PT, OT rec Acute Rehab. 3. UTI-DC on Omnicef 4. Hypertension. Continue lisinopril. 5. Anxiety. Continue, Ativan and Zoloft. 6. Gastroesophageal reflux disease: Continue PPI. 7. Benign prostatic hypertrophy. Continue finasteride. 8. Parkinson's. Continue current home Sinemet. To avoid anticholinergics or dopamine agonist as per Neurology notes. 9. Disposition: Acute Rehab on DC, awaiting placement Labs Checked Results & Data Vital Signs (Past 12 Hours) Vital Signs Temp Pulse Resp BP Pulse Ox 07/06/19 15:54 36.5 C 68 16 138/81 96 07/06/19 07:14 36.2 C L 67 16 146/83 H 96 (1) Fall Encounter type: initial encounter Qualified Code(s): W19.XXXA - Unspecified fall, initial encounter (2) Right rib fracture Encounter type: initial encounter Fracture type: closed Rib fracture type: multiple ribs Qualified Code(s): S22.41XA - Multiple fractures of ribs, right side, initial encounter for closed fracture (3) Pelvis fracture, right Encounter type: initial encounter Fracture type: closed Pelvic bone location: pubis Sublocation of pubis: unspecified portion of pubis Qualified Code(s): S32.501A - Unspecified fracture of right pubis, initial encounter for closed fracture
[2019-07-06] MEDS: cefTRIAXone SODIUM 2,000 MG in DEXTROSE 5% 50 ML IV SCH (18:13)
[2019-07-06] MEDS: ACETAMINOPHEN 325 MG TAB PO PRN (20:31)
[2019-07-07 05:53] LABS: Hematocrit (blood only) 38.2 % (42-52); Mean Corpuscular Hemoglobin 30.1 pg (25-34); Mean Corpuscular Volume 88.4 fL (80-100); Platelet Count 227 K/uL (130-400); RDW Coefficient of Variation 13.7 % (11.5-14.5); RDW Standard Deviation 44.8 fL (36.4-46.3); Red Blood Count 4.32 M/uL (4.7-6.1); White Blood Count 5.77 K/uL (4.8-10.8)
[2019-07-07] MEDS: HEPARIN SOD 5,000 UNIT/0.5 ML VIAL SQ SCH ×3 (05:54→20:26)
[2019-07-07 06:26] LABS: Calcium 8.8 mg/dl (8.5-10.1); Creatinine Clr Calc Pharmacy 102.1 ml/min; Est GFR (African American) 105.6; Est GFR (Non-African American) 91.1; Potassium 4.1 mmol/L (3.5-5.1)
[2019-07-07] MEDS: CARBIDOPA/LEVODOPA 25/100MG TAB PO SCH ×3 (09:09→20:24)
[2019-07-07] MEDS: LORazepam 0.5 MG TAB PO SCH ×2 (09:09→20:24)
[2019-07-07] MEDS: FINASTERIDE 5 MG TAB PO SCH (09:09)
[2019-07-07] MEDS: DOCUSATE SODIUM/SENNA 50/8.6MG TAB PO SCH ×2 (09:09→20:25)
[2019-07-07] MEDS: LISINOPRIL 10 MG TAB PO SCH (09:10)
[2019-07-07] MEDS: PANTOprazole 40 MG TAB PO SCH (09:10)
[2019-07-07] MEDS: POTASSIUM CHLORIDE 10 MEQ TABCR PO SCH (09:10)
[2019-07-07] MEDS: SERTRALINE HCL 100 MG TABLET PO SCH (09:10)
[2019-07-07] MEDS: cefTRIAXone SODIUM 2,000 MG in DEXTROSE 5% 50 ML IV SCH (17:48)
[2019-07-07] MEDS: ACETAMINOPHEN 325 MG TAB PO PRN (20:24)
[2019-07-08] MEDS: HEPARIN SOD 5,000 UNIT/0.5 ML VIAL SQ SCH ×3 (05:25→21:13)
[2019-07-08] MEDS: LORazepam 0.5 MG TAB PO SCH ×2 (09:01→21:16)
[2019-07-08] MEDS: POTASSIUM CHLORIDE 10 MEQ TABCR PO SCH (09:01)
[2019-07-08] MEDS: FINASTERIDE 5 MG TAB PO SCH (09:01)
[2019-07-08] MEDS: LISINOPRIL 10 MG TAB PO SCH (09:02)
[2019-07-08] MEDS: CARBIDOPA/LEVODOPA 25/100MG TAB PO SCH ×3 (09:02→21:13)
[2019-07-08] MEDS: PANTOprazole 40 MG TAB PO SCH (09:02)
[2019-07-08] MEDS: SERTRALINE HCL 100 MG TABLET PO SCH (09:02)
[2019-07-08] MEDS: DOCUSATE SODIUM/SENNA 50/8.6MG TAB PO SCH ×2 (09:02→21:13)
[2019-07-08] MEDS: cefTRIAXone SODIUM 2,000 MG in DEXTROSE 5% 50 ML IV SCH (18:12)
[2019-07-08] MEDS: ACETAMINOPHEN 325 MG TAB PO PRN (21:18)
[2019-07-09] MEDS: HEPARIN SOD 5,000 UNIT/0.5 ML VIAL SQ SCH ×3 (05:40→21:38)
--- NOTE | 2019-07-09 08:41 | Hospitalist Progress Note ---
Date of Service July 08, 2019 Assessment & Plan (1) Fall: (2) Acute pain of right hip: (3) Right rib fracture: (4) Pelvis fracture, right: (5) Inability to ambulate due to hip: Status post fall and ambulatory dysfunction, found to have inferior right pubic ring fracture and also right side rib fracture from 4th to 7th. CT hip showed nondisplaced cortical fracture inferior right pubic ring. CT chest showed nondisplaced cortical fractures right anterior fourth through seventh ribs. CT head showed no significant change compared to the prior study. No acute intracranial abnormality. Ortho on board recommended conservative management Continue weightbearing as tolerated on that leg. Continue PT/OT Follow up with ortho office in 8 weeks for a surveillance x-ray. Fall precaution Continue pain control (6) UTI (urinary tract infection): Outpatient treatment for Cefuroxime was starting outpatient On Rocephin IV Stable Parkinson Dx Alzheimer disease Continue carbidopa -Levodopa Stable Disposition Waiting for placement to rehab Subjective Pt was seen and examined Sitting in chair with no acute distress Pt said that pain improves alittle Denies any chest pain, palpitation and SOB Physical Exam Physical Exam: General- No acute distress Head- atraumatic Eyes- PERRL, EOMI, ENT- oropharynx clear Neck- supple, no JVD Lungs- clear to auscultation Heart- regular rhythm; no murmur Abdomen- normal bowel sounds, soft, nontender Extremities- no calf tenderness Neuro- alert, oriented x 3; PERRL, EOMI; no facial palsy; no dysarthria Skin- warm & dry Results & Data Vital Signs (Past 12 Hours) Vital Signs Temp Pulse Resp BP BP Pulse Ox 07/09/19 07:13 36.4 C L 67 16 117/69 95 07/08/19 23:05 36.9 C 81 18 112/71 95 (1) Right rib fracture Encounter type: initial encounter Fracture type: closed Rib fracture type: multiple ribs Qualified Code(s): S22.41XA - Multiple fractures of ribs, right side, initial encounter for closed fracture (2) Pelvis fracture, right Encounter type: initial encounter Fracture type: closed Pelvic bone location: pubis Sublocation of pubis: unspecified portion of pubis Qualified Code(s): S32.501A - Unspecified fracture of right pubis, initial encounter for closed fracture (3) Fall Encounter type: initial encounter Qualified Code(s): W19.XXXA - Unspecified fall, initial encounter
[2019-07-09] MEDS: LORazepam 0.5 MG TAB PO SCH ×2 (08:52→20:50)
[2019-07-09] MEDS: DOCUSATE SODIUM/SENNA 50/8.6MG TAB PO SCH ×2 (08:52→20:50)
[2019-07-09] MEDS: SERTRALINE HCL 100 MG TABLET PO SCH (08:52)
[2019-07-09] MEDS: PANTOprazole 40 MG TAB PO SCH (08:52)
[2019-07-09] MEDS: FINASTERIDE 5 MG TAB PO SCH (08:52)
[2019-07-09] MEDS: LISINOPRIL 10 MG TAB PO SCH (08:53)
[2019-07-09] MEDS: POTASSIUM CHLORIDE 10 MEQ TABCR PO SCH (08:53)
[2019-07-09] MEDS: CARBIDOPA/LEVODOPA 25/100MG TAB PO SCH ×3 (08:53→20:50)
[2019-07-09] MEDS: cefTRIAXone SODIUM 2,000 MG in DEXTROSE 5% 50 ML IV SCH (18:12)
--- NOTE | 2019-07-09 19:23 | Hospitalist Progress Note ---
Date of Service July 09, 2019 Assessment & Plan (1) Fall: (2) Acute pain of right hip: (3) Right rib fracture: (4) Pelvis fracture, right: (5) Inability to ambulate due to hip: Status post fall and ambulatory dysfunction, found to have inferior right pubic ring fracture and also right side rib fracture from 4th to 7th. CT hip showed nondisplaced cortical fracture inferior right pubic ring. CT chest showed nondisplaced cortical fractures right anterior fourth through seventh ribs. CT head showed no significant change compared to the prior study. No acute intracranial abnormality. Ortho on board recommended conservative management Continue weightbearing as tolerated on that leg. Continue PT/OT Follow up with ortho office in 8 weeks for a surveillance x-ray. Fall precaution Continue pain control Waiting for placement (6) UTI (urinary tract infection): Outpatient treatment for Cefuroxime was starting outpatient On Rocephin IV Will change to cefuroxime on discharge Stable Parkinson Dx Alzheimer disease Continue carbidopa -Levodopa Stable Disposition Waiting for placement to rehab Subjective Pt was seen and examined Sitting in the chair with no distress eating lunch Pt said that he feels ok He said that he walked with physical therapist today He said that his pain control He is waiting for placement to rehab Denies any chest pain, palpitation and SOB Physical Exam Physical Exam: General- No acute distress Head- atraumatic Eyes- PERRL, EOMI, ENT- oropharynx clear Neck- supple, no JVD Lungs- clear to auscultation Heart- regular rhythm; no murmur Abdomen- normal bowel sounds, soft, nontender Extremities- no calf tenderness Neuro- alert, oriented x 3; PERRL, EOMI; no facial palsy; no dysarthria Skin- warm & dry Results & Data Vital Signs (Past 12 Hours) Vital Signs Temp Pulse Resp BP Pulse Ox 07/09/19 15:29 36.6 C 75 16 121/74 97 (1) Right rib fracture Encounter type: initial encounter Fracture type: closed Rib fracture type: multiple ribs Qualified Code(s): S22.41XA - Multiple fractures of ribs, right side, initial encounter for closed fracture (2) Pelvis fracture, right Encounter type: initial encounter Fracture type: closed Pelvic bone location: pubis Sublocation of pubis: unspecified portion of pubis Qualified Code(s): S32.501A - Unspecified fracture of right pubis, initial encounter for closed fracture (3) Fall Encounter type: initial encounter Qualified Code(s): W19.XXXA - Unspecified fall, initial encounter
[2019-07-10] MEDS: HEPARIN SOD 5,000 UNIT/0.5 ML VIAL SQ SCH ×3 (06:12→20:18)
[2019-07-10] MEDS: LORazepam 0.5 MG TAB PO SCH ×2 (08:41→20:16)
[2019-07-10] MEDS: SERTRALINE HCL 100 MG TABLET PO SCH (08:41)
[2019-07-10] MEDS: CARBIDOPA/LEVODOPA 25/100MG TAB PO SCH ×3 (08:41→20:16)
[2019-07-10] MEDS: PANTOprazole 40 MG TAB PO SCH (08:41)
[2019-07-10] MEDS: LISINOPRIL 10 MG TAB PO SCH (08:42)
[2019-07-10] MEDS: FINASTERIDE 5 MG TAB PO SCH (08:42)
[2019-07-10] MEDS: POTASSIUM CHLORIDE 10 MEQ TABCR PO SCH (08:42)
[2019-07-10] MEDS: DOCUSATE SODIUM/SENNA 50/8.6MG TAB PO SCH ×2 (08:42→20:16)
--- NOTE | 2019-07-10 16:15 | Hospitalist Progress Note ---
Date of Service July 10, 2019 Assessment & Plan (1) Fall: (2) Acute pain of right hip: (3) Right rib fracture: (4) Pelvis fracture, right: (5) Inability to ambulate due to hip: Status post fall and ambulatory dysfunction, found to have inferior right pubic ring fracture and also right side rib fracture from 4th to 7th. CT hip showed nondisplaced cortical fracture inferior right pubic ring. CT chest showed nondisplaced cortical fractures right anterior fourth through seventh ribs. CT head showed no significant change compared to the prior study. No acute intracranial abnormality. Ortho on board recommended conservative management Continue weightbearing as tolerated on that leg. Continue PT/OT Follow up with ortho office in 8 weeks for a surveillance x-ray. Fall precaution Continue pain control Waiting for placement (6) UTI (urinary tract infection): Outpatient treatment for Cefuroxime was starting outpatient On Rocephin IV, will complete abx course today Stable Parkinson Dx Alzheimer disease Continue carbidopa -Levodopa Stable Disposition Waiting for placement to rehab Subjective Pt was seen and examined Lying in bed with no distress Denies any chest pain, palpitation and SOB Physical Exam Physical Exam: General- No acute distress Head- atraumatic Eyes- PERRL, EOMI, ENT- oropharynx clear Neck- supple, no JVD Lungs- clear to auscultation Heart- regular rhythm; no murmur Abdomen- normal bowel sounds, soft, nontender Extremities- no calf tenderness Neuro- alert, oriented x 3; PERRL, EOMI; no facial palsy; no dysarthria Skin- warm & dry Results & Data Vital Signs (Past 12 Hours) Vital Signs Temp Pulse Resp BP BP Pulse Ox 07/10/19 15:36 36.5 C 72 16 117/74 94 07/10/19 07:19 36.6 C 69 18 151/83 H 95 (1) Right rib fracture Encounter type: initial encounter Fracture type: closed Rib fracture type: multiple ribs Qualified Code(s): S22.41XA - Multiple fractures of ribs, right side, initial encounter for closed fracture (2) Pelvis fracture, right Encounter type: initial encounter Fracture type: closed Pelvic bone location: pubis Sublocation of pubis: unspecified portion of pubis Qualified Code(s): S32.501A - Unspecified fracture of right pubis, initial encounter for closed fracture (3) Fall Encounter type: initial encounter Qualified Code(s): W19.XXXA - Unspecified fall, initial encounter
[2019-07-11] MEDS: HEPARIN SOD 5,000 UNIT/0.5 ML VIAL SQ SCH (05:24)
[2019-07-11] MEDS: LORazepam 0.5 MG TAB PO SCH (09:08)
[2019-07-11] MEDS: POTASSIUM CHLORIDE 10 MEQ TABCR PO SCH (09:08)
[2019-07-11] MEDS: FINASTERIDE 5 MG TAB PO SCH (09:09)
[2019-07-11] MEDS: LISINOPRIL 10 MG TAB PO SCH (09:09)
[2019-07-11] MEDS: CARBIDOPA/LEVODOPA 25/100MG TAB PO SCH (09:09)
[2019-07-11] MEDS: DOCUSATE SODIUM/SENNA 50/8.6MG TAB PO SCH (09:09)
[2019-07-11] MEDS: PANTOprazole 40 MG TAB PO SCH (09:09)
[2019-07-11] MEDS: SERTRALINE HCL 100 MG TABLET PO SCH (09:09)
--- NOTE | 2019-07-11 09:40 | Hospitalist Progress Note ---
Date of Service July 11, 2019 Assessment & Plan (1) Fall: (2) Acute pain of right hip: (3) Right rib fracture: (4) Pelvis fracture, right: (5) Inability to ambulate due to hip: Status post fall and ambulatory dysfunction, found to have inferior right pubic ring fracture and also right side rib fracture from 4th to 7th. CT hip showed nondisplaced cortical fracture inferior right pubic ring. CT chest showed nondisplaced cortical fractures right anterior fourth through seventh ribs. CT head showed no significant change compared to the prior study. No acute intracranial abnormality. Ortho on board recommended conservative management Continue weightbearing as tolerated on that leg. Continue PT/OT Follow up with ortho office in 8 weeks for a surveillance x-ray. Fall precaution Continue pain control Transfer to rehab today (6) UTI (urinary tract infection): Outpatient treatment for Cefuroxime was starting outpatient Completed course of Rocephin IV yesterday Stable Parkinson Dx Alzheimer disease Continue carbidopa -Levodopa Stable Disposition Transfer to rehab today Follow up with orthopedic's office in 8 weeks for a surveillance x-ray Continue PT/OT Fall precaution Subjective Pt was seen and examined Sitting in chair with no distress Pt already got dressed to transfer today to rehab He said that he only has pain when he puts weight on his right leg Denies any chest pain, palpitation, dizziness and SOB Physical Exam Physical Exam: General- No acute distress Head- atraumatic Eyes- PERRL, EOMI, ENT- oropharynx clear Neck- supple, no JVD Lungs- clear to auscultation Heart- regular rhythm; no murmur Abdomen- normal bowel sounds, soft, nontender Extremities- no calf tenderness Neuro- alert, oriented x 3; PERRL, EOMI; no facial palsy; no dysarthria Skin- warm & dry Results & Data Vital Signs (Past 12 Hours) Vital Signs Temp Pulse Resp BP Pulse Ox 07/11/19 07:05 36.8 C 67 18 132/82 94 07/10/19 23:33 36.6 C 70 16 125/78 94 (1) Right rib fracture Encounter type: initial encounter Fracture type: closed Rib fracture type: multiple ribs Qualified Code(s): S22.41XA - Multiple fractures of ribs, right side, initial encounter for closed fracture (2) Pelvis fracture, right Encounter type: initial encounter Fracture type: closed Pelvic bone location: pubis Sublocation of pubis: unspecified portion of pubis Qualified Code(s): S32.501A - Unspecified fracture of right pubis, initial encounter for closed fracture (3) Fall Encounter type: initial encounter Qualified Code(s): W19.XXXA - Unspecified fall, initial encounter
--- NOTE | 2019-07-14 10:34 | Coding Query ---
PRESENT ON ADMISSION QUERY To promote full compliance with coding requirements relating to pateint care, physician participation is requested in all cases of director of strategy & mobile uncertainty. Please assist us with the question(s) below: Please place an X within the parenthesis (x). The following diagnosis listed in this patient's medical record require physician assistance to determine if they were present on admission (POA) or not. Please advise for each diagnosis whether it was present on admission, not present on admission, or if it was clinically undetermined. 1. UTI (xx ) Present On Admission ( ) Not Present On Admission ( ) Clinically Undetermined ( ) this was History of UTI ( ) Other: Please Specify Thank you Luz Diallo *Definition of the present on admission (POA)-Present on admission is defined as present at the time the order for inpatient admission occurs. Conditions that develop during an outpatient encounter prior to a written order for inpatient admission (including emergency department, observation, or outpatient surgery) are considered present on admission. KAMILA
== END 2019-07-11 10:36 | DRG 536 ==
LOC: ED 18:43 → 3W 20:42 → SUATTDRO 20:42 → 3W 21:28

== ENCOUNTER 2020-01-23 09:27 | Inpatient (IN) ==
[2020-01-23] MEDS ORDERED: fentaNYL citrate 100 MCG/2 ML VIAL IV STA (10:02)
--- NOTE | 2020-01-23 10:20 | Emergency Department Note ---
Impression & Plan Closed right hip fracture, Fall ED Provider Note Provider: Ken Sharma MD DATE OF SERVICE: 01/23/2020 CHIEF COMPLAINT: Fall, hip pain HISTORY OF PRESENT ILLNESS: Patient is a 74-year-old gentleman with unfortunate history of Parkinson's disease, by report mild dementia, recurrent falls, GERD, anemia, anxiety, chronic back pain, CVA presenting via ambulance from [facility] after a fall today. Patient states that he had mechanical fall and fell forward and did strike his head. Denies LOC. Patient not on anticoagulants. Patient complaining of significant right hip pain is unable to ambulate due to pain in the right hip area. Patient denies of the pain is head neck chest abd omen or other extremities. Review of records appears the patient has a history of prior right pelvic fracture last year. Patient states he occasionally has falls. Denies presyncopal complaints. Patient states he was given some Tylenol prior to arrival. Still in 3 out of 10 pain pain is worse with moving the right hip area. Patient is a bit wandering and some of the statements. REVIEW OF SYSTEMS: A total of 10 review of systems was obtained and negative except as stated above in the HPI. PAST MEDICAL HISTORY: As noted above MEDICATIONS: Reviewed the [facility]dc medication list includes Sinemet, Ativan, lisinopril, Protonix FMH: Hypertension SOCIAL HISTORY: Resides at [facility], non-smoker PHYSICAL EXAM: GENERAL: alert and oriented in no acute distress on stretcher Head: normocephalic and atraumatic EYES: No injection, discharge or icterus. PERRL NECK: Trachea midline. Supple. No midline tenderness ENT: Mucous membranes pink and moist. LUNGS: Airway patent. No retractions. Breath sounds clear HEART: Regular rate and rhythm. No chest wall tenderness ABDOMEN: Soft and non-tender, without guarding or rebound. BACK: No flank tenderness SKIN: Acyanotic, warm, dry, without rashes EXTREMITIES: Without swelling, tenderness or deformity except for pain in the ri ght greater trochanter area worse with movement of the right lower extremity. Neurologically intact to the right lower extremity. No tenderness of the thigh, knee, lower leg or ankle of the right leg. NEUROLOGICAL: No focal deficits. No aphasia. No facial droop or slurred speech. Normal strength and tone in the extremities. Sensation to gross touch normal. Ambulatory. EK bpm, sinus bradycardia with no PVC. No acute ST segment elevation although there is anterior lead artifact. Normal QTC. Normal QRS. CONTINUOUS CARDIAC MONITORING: was ordered and showed a heart rate of 62 bpm in normal sinus rhythm Patient's hypertension was referred to the hospitalist [facility]CS 15occasionally makes an odd statement HOSPITAL COURSE: 954 Patient was first seen and H&P performed. 1136 updated the patient's son via phone. Patient has become somewhat agitated. [address] Hanna. Will plan for OR when cleared by the medical team as documented in their note. 1225 discussed with hospitalist, given he is from a high risk facility plan for send a coronavirus testing at this time. [address] Ralph Nguyen Hospitalist who will admit Patient's laboratory studies and imaging reviewed. Differential includes Fracture, dislocation, contusion, intra-abdominal, pneumothorax, intrathoracic, intracranial, neurologic, compartment syndrome, rhabdomyolysis, as well as other pathologies. IMPRESSION/MEDICAL DECISION MAKING: Patient presents with what sounds are mechanical fall. Tenderness of the right hip. Concern for possible traumatic injury here. X-ray of the pelvis and femur obtained. Given the fact that he struck his head and his age CT head and cervical spine were completed. Luckily is not anticoagulants. Basic blood work and EKG were also obtained. Given some fentanyl initially for pain. Patient laboratory studies without significant abnormality. X-rays do confirm a right intertrochanteric femur fracture. Chest x-ray is unremarkable. Labs are unremarkable. Discussed with orthopedics and the patient's son the finding of the fracture. Given the patient's from a facility that has an outbreak of coronavirus maintained and precautions here. CT of the head and cervical spine were completed to exclude traumatic injury here. Patient became somewhat agitated required a small amount of Ativan and a sitter for his safety so he did get out of bed or harm himself. Patient son states he has a history of this and is on Ativan at his facility. Again given the high-risk facility he is from discussed with the hospitalist who was in agreement with maintaining airborne more precautions and COVID testing as patients can often be asymptomatic initially. In discussion with them I ordered COVID testing at this time. DIAGNOSIS: Right hip fracture, fall DISPOSITION: Hospitalist will evaluate Past Med/Surg History Medical History (Updated 01/23/20 @ 11:40 by Ken Sharma M.D.) Alzheimer disease Dementia Parkinson disease Surgical History (Updated 07/05/19 @ 10:48 by Dayton Peterson MD) History of total left hip arthroplasty No pertinent past surgical history Social History Preferred Language: [place] Communication Ability: Effective Irrigation Equipment Installer Required: No Beliefs That Will Affect Care: None marital status: Current Living Situation: Personal Care Facility current occupational status: employed Feels Safe at Home: Yes Safety Concerns: Feels Safe At This Time Smoking Status: Former smoker Hx Alcohol Use: Yes Hx Substance Use: Yes substance use type: marijuana Substance Use Type Other:: Daily for 50 years Last Used Substance: Unknown Last Used Substance Other:: last used october 2017 Allergies Allergies Allergy/AdvReac Type Severity Reaction Status Date / Time Iodinated Contrast Media Allergy Unknown SKIN Verified 07/04/19 21:48 FLUSHES Home Meds Home Medications Medication Instructions Recorded Confirmed acetaminophen [Acetaminophen Extra 500 mg PO Q4H PRN MDD 3 GMS 07/08/18 01/23/20 Strength] APAP/24 HOURS carbidopa-levodopa 1 tab PO TID 07/08/18 01/23/20 ergocalciferol (vitamin D2) 50,000 unit PO WK 07/08/18 01/23/20 [Vitamin D2] potassium chloride 10 meq PO QAM 07/08/18 01/23/20 finasteride 5 mg PO QAM 06/26/19 01/23/20 melatonin 5 mg PO HS 06/26/19 01/23/20 pantoprazole 40 mg PO QAM 06/26/19 01/23/20 sertraline 100 mg PO QAM 06/26/19 01/23/20 brimonidine-timolol [Combigan] 1 drp OPB BID 01/23/20 01/23/20 dorzolamide-timolol 1 drp OPB BID 01/23/20 01/23/20 lisinopril 5 mg PO QAM 01/23/20 01/23/20 lorazepam 0.5 mg PO BID 01/23/20 01/23/20 sennosides-docusate sodium [Senna 1 tab PO BID 01/23/20 01/23/20 Plus] Results & Data (ED) Vital Signs Vital Signs - 24 hr 01/23/20 09:27 01/23/20 11:35 01/23/20 13:00 Temperature 36.5 C Temperature Source Oral Pulse Rate 62 Pulse Rate [Right Finger] 69 102 H Respiratory Rate 18 20 20 Respiratory Effort / Characteristics Non-Labored Spontaneous Non-Labored Spontaneous Non-Labored Spontaneous Respiratory Depth Normal Normal Normal Respiratory Pattern Regular Regular Regular Blood Pressure 148/88 H Blood Pressure [Left Arm] 156/103 H 140/93 Blood Pressure Mean 108 Blood Pressure Mean [Left Arm] 120 108 Blood Pressure Position Lying Blood Pressure Position [Left Arm] Lying Lying Pulse Oximetry 96 97 97 Oxygen Delivery Method Room Air Room Air Room Air Sepsis Recent Fever Within 48 Hours No Sepsis New/Unexplained Change in Mental Status No Sepsis Action Taken by Nursing No Action Required Laboratory Data Result diagrams: 01/23/20 10:14 01/23/20 10:14 Lab Results 01/23/20 01/23/20 01/23/20 Range/Units 10:14 10:14 10:14 WBC 6.93 (4.8-10.8) K/uL RBC 4.55 L (4.7-6.1) M/uL Hgb 13.7 L (14.0-18.0) g/dL Hct 40.6 L (42-52) % MCV 89.2 (80-100) fL MCH 30.1 (25-34) pg MCHC 33.7 (32-36) g/dL RDW Std Deviation 44.2 (36.4-46.3) fL RDW Coeff of David 13.5 (11.5-14.5) % Plt Count 181 (130-400) K/uL MPV 10.3 (7.4-10.4) fL Immature Gran % (Auto) 0.4 % Neut % (Auto) 79.5 % Lymph % (Auto) 10.8 % [place] % (Auto) 8.8 % Eos % (Auto) 0.4 % Baso % (Auto) 0.1 % Immature Gran # (Auto) 0.03 H (0.00-0.02) K/uL Neut # (Auto) 5.50 (1.4-6.5) K/uL Lymph # (Auto) 0.75 L (1.2-3.4) K/uL [place] # (Auto) 0.61 H (0.11-0.59) K/uL Eos # (Auto) 0.03 (0-0.5) K/uL Baso # (Auto) 0.01 (0-0.2) K/uL PT 11.4 (9.0-12.0) Seconds INR 1.1 (0.9-1.1) Sodium 141 (136-145) mmol/L Potassium 3.8 (3.5-5.1) mmol/L Chloride 110 H (98-107) mmol/L Carbon Dioxide 24 (21-32) mmol/L Anion Gap 7.0 (3-11) BUN 10 (7-18) mg/dl Creatinine 0.63 (0.6-1.4) mg/dl Est Cr Clr Drug Dosing 121.4 ml/min Est GFR ( Amer) 113.3 Est GFR (Non-Af Amer) 97.8 BUN/Creatinine Ratio 15.4 (10-20) Glucose 106 H (70-99) mg/dl Calcium 8.1 L (8.5-10.1) mg/dl Administered Medications Discontinued Medications Fentanyl Citrate (Fentanyl Citrate) 50 mcg IV NOW STA Stop: 01/23/20 10:03 Last Admin: 01/23/20 10:21 Dose: 50 mcg Documented by: [id number] Lorazepam (Ativan) 0.5 mg in 1 mls @ 1 mls/min IV NOW STA Stop: 01/23/20 11:31 Last Admin: 01/23/20 11:45 Dose: 1 mls/min Documented by: [id number] Discharge Plan Visit Data Chief Complaint: Hip Pain Stated Complaint: fall/ R hip pain ED Provider: Ken Sharma Discharge Problem: Closed right hip fracture, Fall Forms Stand Alone Forms: [facility] Prescriptions Prescriptions: No Action sertraline 100 mg tablet 100 mg PO QAM RF: 0 pantoprazole 40 mg Tablet,Delayed Release (Dr/Ec) 40 mg PO QAM RF: 0 finasteride 5 mg tablet 5 mg PO QAM RF: 0 melatonin 5 mg Tablet 5 mg PO HS RF: 0 carbidopa-levodopa 25-100 mg tablet 1 tab PO TID RF: 0 potassium chloride 10 mEq Tablet Extended Release 10 meq PO QAM RF: 0 acetaminophen [Acetaminophen Extra Strength] 500 mg Tablet 500 mg PO Q4H MDD 3 GMS APAP/24 HOURS PRN (Reason: Pain) RF: 0 ergocalciferol (vitamin D2) [Vitamin D2] 50,000 unit Capsule 50,000 unit PO WK RF: 0 lorazepam 0.5 mg tablet 0.5 mg PO BID RF: 0 dorzolamide-timolol 22.3-6.8 mg/mL drops 1 drp OPB BID RF: 0 lisinopril 5 mg Tablet 5 mg PO QAM RF: 0 Combigan 0.2-0.5 % drops 1 drp OPB BID RF: 0 sennosides-docusate sodium [Senna Plus] 8.6-50 mg tablet 1 tab PO BID RF: 0 Discharge Problem: Closed right hip fracture Qualifiers: Encounter type: initial encounter Qualified Code(s): S72.001A - Fracture of unspecified part of neck of right femur, initial encounter for closed fracture Fall Qualifiers: Encounter type: initial encounter Qualified Code(s): W19.XXXA - Unspecified fall, initial encounter
[2020-01-23 10:40] LABS: Basophils # (auto) 0.01 K/uL (0-0.2); Basophils % (auto) 0.1 %; Eosinophils # (auto) 0.03 K/uL (0-0.5); Eosinophils % (auto) 0.4 %; Hematocrit (blood only) 40.6 % (42-52); Hemoglobin 13.7 g/dL (14.0-18.0); Immature Granulocytes # (auto) 0.03 K/uL (0.00-0.02); Immature Granulocytes % (auto) 0.4 %; Lymphocytes # (auto) 0.75 K/uL (1.2-3.4); Lymphocytes % (auto) 10.8 %; Mean Corpuscular Hemoglobin 30.1 pg (25-34); Mean Corpuscular Hgb Conc 33.7 g/dL (32-36); Mean Corpuscular Volume 89.2 fL (80-100); Mean Platelet Volume 10.3 fL (7.4-10.4); Monocytes # (auto) 0.61 K/uL (0.11-0.59); Monocytes % (auto) 8.8 %; Neutrophils % (auto) 79.5 %; Platelet Count 181 K/uL (130-400); RDW Coefficient of Variation 13.5 % (11.5-14.5); RDW Standard Deviation 44.2 fL (36.4-46.3); Red Blood Count 4.55 M/uL (4.7-6.1); White Blood Count 6.93 K/uL (4.8-10.8)
[2020-01-23 10:55] LABS: BUN Creatinine Ratio 15.4 (10-20); Calcium 8.1 mg/dl (8.5-10.1); Creatinine Clr Calc Pharmacy 121.4 ml/min; Est GFR (African American) 113.3; Est GFR (Non-African American) 97.8; Potassium 3.8 mmol/L (3.5-5.1)
[2020-01-23 10:59] LABS: INR 1.1 (0.9-1.1); Prothrombin Time 11.4 Seconds (9.0-12.0)
--- NOTE | 2020-01-23 11:03 | XRay Report ---
XR chest 1V portable CLINICAL HISTORY: 74 years-old Male presenting with fall. TECHNIQUE: Portable upright AP view of the chest was obtained. COMPARISON: 06/26/2019. FINDINGS: Atherosclerosis of the aortic arch. Cardiac silhouette borderline enlarged. Mildly low lung volumes. Minimal left basilar opacity. No large effusion or pneumothorax. The patient is HENSLEY rotated. Degenera tive changes of the thoracic spine. Osteopenia may be present. Deformities of several left lateral ri bs suggested, namely at the fifth and sixth rib. These correlate with chronic fracture deformities ev ident on prior CT from June 2019. Upper abdomen normal. IMPRESSION: 1. Minimal left basilar opacities likely atelectasis or scarring. No convincing evidence of acute ca rdiopulmonary disease. ACT 112: Negative or not required by law. Electronically signed by: Dayton Sales M.D. 01/23/2020 11:02 AM
--- NOTE | 2020-01-23 11:21 | XRay Report ---
XR femur RT 2V routine CLINICAL HISTORY: 74 years-old Male presenting with fall, hip pain. TECHNIQUE: Frontal and lateral views of the right femur were obtained. COMPARISON: 06/26/2019. FINDINGS: Interval development of a mildly comminuted intertrochanteric fracture of the right femur. There is a mildly displaced lesser trochanteric fracture fragment. There is diastases at the basicervical porti on of the fracture plane. Mild varus angulation. The right femoral head remains congruent and acetabu lum. Mild osteophytosis of the right hip. Visualized portion of the pelvis intact. IMPRESSION: Mildly displaced and mildly comminuted intertrochanteric right femur fracture with a dominant basicer vical fracture plane. ACT 112: Negative or not required by law. Electronically signed by: Dayton Sales M.D. 01/23/2020 11:19 AM
--- NOTE | 2020-01-23 11:26 | XRay Report ---
XR pelvis 1-2V routine CLINICAL HISTORY: 74 years-old Male presenting with fall. TECHNIQUE: Single frontal view of the pelvis was obtained. COMPARISON: 06/26/2019. FINDINGS: Interval development of a mildly comminuted and mildly displaced fracture of the intertrochanteric an d basicervical region of the right femur. The right hip joint remains congruent with mild degenerativ e changes evident. Redemonstration of total left hip arthroplasty. Prominent heterotopic ossification along the superior and inferior aspects of the left hip, which is nearly bridging. The bony pelvis i s intact allowing for HENSLEY rotation and suspected osteopenia. Arcuate lines of the sacrum intact. Sacr oiliac joints and pubic symphysis grossly congruent. Posterior lumbar fusion hardware noted. IMPRESSION: Mildly comminuted and mildly displaced intertrochanteric/basicervical right femur fracture. ACT 112: Negative or not required by law. Electronically signed by: Dayton Sales M.D. 01/23/2020 11:25 AM
[2020-01-23] MEDS ORDERED: LORazepam 0.5 MG/1 ML VIAL IV STA (11:30)
--- NOTE | 2020-01-23 12:21 | CT Scan Report ---
CT head/brain wo con CLINICAL HISTORY: 74 years-old Male presenting with fall, history of dementia, head injury, combative . TECHNIQUE: Multidetector CT imaging of the head was performed without the use of intravenous contrast . IV contrast: None. One or more dose lowering techniques were used consistent with the principles of ALARA (as low as reasonably achievable), including automatic exposure control, mA or kV adjustment t o individual patient size, and/or use of iterative reconstruction. COMPARISON: 07/05/2019. CT DOSE (mGy.cm): The estimated cumulative dose is 1727.55 mGycm. FINDINGS: Finance Vice President topogram: Unremarkable. Proportional ventricular and sulcal prominence, likely age-related parenchymal volume loss. No hemorr neisha. Periventricular and subcortical white matter hypoattenuation, nonspecific but likely indicative of chronic small vessel ischemic change. Extensive old lacunar infarcts in the right frontal lobe leal bcortical white matter. This is unchanged. No acute territorial infarct. No mass effect or midline sh ift. No extra-axial fluid collection. Paranasal sinuses and mastoid air cells clear. Calvarium intact . IMPRESSION: 1. No significant change compared to the prior study. No acute intracranial abnormality. ACT 112: Negative or not required by law. Electronically signed by: Dayton Sales M.D. 01/23/2020 12:20 PM
--- NOTE | 2020-01-23 12:25 | CT Scan Report ---
CT cervical spine wo con CLINICAL HISTORY: 74 years-old Male presenting with fall, head injury, history of dementia, combative . TECHNIQUE: Multidetector CT of the cervical spine was performed without the use of intravenous contra st. IV contrast: None. One or more dose lowering techniques were used consistent with the principles of ALARA (as low as reasonably achievable), including automatic exposure control, mA or kV adjustment to individual patient size, and/or use of iterative reconstruction. COMPARISON: 11/19/2017. CT DOSE (mGy.cm): The estimated cumulative dose is 1727.55. FINDINGS: Manager Critical Care topogram: Unremarkable. Normal cervical lordosis. Vertebral bodies maintain normal height and alignment. Osteopenia suspected . Severe intervertebral disc height loss at C5-6 and moderate height loss at C6-7. Disc osteophyte co mplexes at these levels. Only mild posterior bony spurring is present at C6-7. Limited evaluation of the soft tissues of the spinal canal demonstrate disc bulge at C5-6 also resulting in mild spinal can al effacement. Moderate degenerative changes of the lateral dental articulation. Facet arthropathy sc attered throughout. Varying degrees of osseous neural foraminal narrowing result from facet arthropat hy and uncovertebral hypertrophy. No acute fracture or subluxation. Visualized portion of the skull base intact. Paraspinal soft tissue s within normal limits. IMPRESSION: 1. No acute osseous injury of the cervical spine. 2. Degenerative changes greatest at C5-6 and C6-7. ACT 112: Negative or not required by law. Electronically signed by: Dayton Sales M.D. 01/23/2020 12:24 PM
--- NOTE | 2020-01-23 13:17 | History & Physical Report ---
Date of Service January 23, 2020 Assessment & Plan (1) Closed right hip fracture: Mechanical fall s/p closed right hip fracture. I would recommending proceeding to surgery without further workup as he is at baseline mental status, and this will help him be functional again optimizing his quality of life. He does have issues with substance abuse and parkinson's dementia. CXR reveals some changes, but this is more consistent with atelectasis and not infection. He denies any recent h/o cough, fevers, chills or SOB consistent with pneumonia. He is being ruled out for COVID-19 simply because the facility he came from has an outbreak. He is not exhibiting "typical" signs of COVID infection at this time, and I feel this diagnosis is less likely. He has no h/o blood clot, but would recommend DVT chemoprophylaxis when able. Questionable h/o reaction to anesthesia but this is not clear-may be further investigated by anesthesia. No evidence of acute ischemia on EKG, patient not having chest pain or SOB. Echo in 2018 revealed some mild AI and trace MR. No murmurs heard today and patient again denies SOB. Proceed with surgery with acceptable apoorva-operative risk. (2) Anxiety: Sertraline and Lorazepam per home regimen. (3) Substance abuse: Reports marijuana use last week. Prior h/o alcohol but sober for many years. (4) Dementia: Parkinson's dementia. Per [facility]. (5) Parkinson disease: Sinemet. PT/OT per Ortho. (6) DVT prophylaxis: SCDs Full Code Dispo-pending Ortho recommendations. Likely to have surgery in am. NPO p MN. Spoke with son, Tan, who is understanding of the plan. DO [facility] History of Present Illness Chief Complaint: R hip fracture, AMS Primary Care Provider: [facility] 74 yo M resident of [facility] with a h/o Parkinson's disease presents to the hospital with acute R hip pain after a fall and was found to have a R hip f racture. He was initially confused in the ER, and cleared up after some pain medications and Ativan, which he takes regularly. He denies a h/o chest pain or SOB in the last 6 months and is able to ambulate well with a walker. He reports having shuffled gait 2/2 Parkinson's which impedes his mobility. Per his son, he leads a mostly sedentary life and uses marijuana and prescription drugs to self medicate. Patient reports smoking marijuana last week. Appears to be at his baseline mental status per his son's description. Son reports a possible reaction to anesthesia in the past (prior hip surgery), however, it was nonspecific. No h/o CAD or blood clot in the past. Allergies Allergy/AdvReac Type Severity Reaction Status Date / Time Iodinated Contrast Media Allergy Unknown SKIN Verified 07/04/19 21:48 FLUSHES Home Medications Home Medications Medication Instructions Recorded Confirmed Type acetaminophen [Acetaminophen Extra 500 mg PO Q4H PRN MDD 3 GMS 07/08/18 01/23/20 History Strength] APAP/24 HOURS carbidopa-levodopa 1 tab PO TID 07/08/18 01/23/20 History ergocalciferol (vitamin D2) 50,000 unit PO WK 07/08/18 01/23/20 History [Vitamin D2] potassium chloride 10 meq PO QAM 07/08/18 01/23/20 History finasteride 5 mg PO QAM 06/26/19 01/23/20 History melatonin 5 mg PO HS 06/26/19 01/23/20 History pantoprazole 40 mg PO QAM 06/26/19 01/23/20 History sertraline 100 mg PO QAM 06/26/19 01/23/20 History brimonidine-timolol [Combigan] 1 drp OPB BID 01/23/20 01/23/20 History dorzolamide-timolol 1 drp OPB BID 01/23/20 01/23/20 History lisinopril 5 mg PO QAM 01/23/20 01/23/20 History lorazepam 0.5 mg PO BID 01/23/20 01/23/20 History sennosides-docusate sodium [Senna 1 tab PO BID 01/23/20 01/23/20 History Plus] Past Med/Surg History Medical History (Updated 01/23/20 @ 19:13 by Sheial Rosas DO) Alzheimer disease Anxiety Dementia HTN (hypertension) Parkinson disease Substance abuse Surgical History History of total left hip arthroplasty Family History Other No pertinent family history in first degree relatives Social History Preferred Language: Sinhala Communication Ability: Effective Conventional Underwriter Required: No Beliefs That Will Affect Care: None marital status: Current Living Situation: Personal Care Facility current occupational status: employed Feels Safe at Home: Yes Safety Concerns: Feels Safe At This Time Smoking Status: Former smoker Hx Alcohol Use: Yes Hx Substance Use: Yes substance use type: marijuana Substance Use Type Other:: Daily for 50 years Last Used Substance: Unknown Last Used Substance Other:: last used october 2017 Review of Systems Review of Systems: All systems reviewed & are unremarkable except as noted in Subjective Physical Exam Physical Exam: CONSTITUTIONAL: WNWD, vitals as above, generally well- appearing but in moderate pain with any movement. EYES: pupils are round and equal bilaterally, normal conjunctivae, no scleral icterus ENT: external ear and nose normal, MMM NECK: trachea midline RESPIRATORY: clear to auscultation bilaterally, no crackles, rales or wheezes, normal respiratory effort CARDIOVASCULAR: regular rate and rhythm, S1 and 2 heard without murmurs, gallops or rubs, no JVD, no peripheral edema GASTROINTESTINAL: soft, nontender, nondistended MUSCULOSKELETAL: rigid extremities difficult to passively extend and limited exam secondary to pain in setting of acute hip fracture. Deconditioned. SKIN: warm and dry NEUROLOGIC: patellar DTRs 2+ bilat. CN 2-12 grossly intact, normal cognition, normal speech PSYCHIATRIC: alert cooperative and oriented to person and place which is baseline per son. Results & Data Results & Data ([facility]) Vital Signs (Past 12 Hours) Vital Signs Temp Pulse Pulse Resp BP BP Pulse Ox 01/23/20 11:35 69 20 156/103 H 97 01/23/20 09:27 36.5 C 62 18 148/88 H 96 Laboratory Results Short CBC 01/23/20 Range/Units 10:14 WBC 6.93 (4.8-10.8) K/uL Hgb 13.7 L (14.0-18.0) g/dL Hct 40.6 L (42-52) % Plt Count 181 (130-400) K/uL BMP 01/23/20 10:14 Sodium 141 Potassium 3.8 Chloride 110 H Carbon Dioxide 24 BUN 10 Creatinine 0.63 Glucose 106 H Calcium 8.1 L Urine 01/23/20 Range/Units 15:50 Urine Color Dark Yellow Urine Appearance Clear (Clear) Urine pH 6.5 (4.5-7.5) Ur Specific [place] 1.025 (1.000-1.030) Urine Protein Trace H (Negative) Urine Glucose (UA) Negative (Negative) Diagnostic Findings XR pelvis 1-2V routine CLINICAL HISTORY: 74 years-old Male presenting with fall. FINDINGS: Interval development of a mildly comminuted and mildly displaced fracture of the intertrochanteric and basicervical region of the right femur. The right hip joint remains congruent with mild degenerative changes evident. Redemonstration of total left hip arthroplasty. Prominent heterotopic ossification along the superior and inferior aspects of the left hip, which is nearly bridging. The bony pelvis is intact allowing for HENSLEY rotation and suspected osteopenia. Arcuate lines of the sacrum intact. Sacroiliac joints and pubic symphysis grossly congruent. Posterior lumbar fusion hardware noted. IMPRESSION: Mildly comminuted and mildly displaced intertrochanteric/basicervical right femur fracture. CT head/brain wo con CLINICAL HISTORY: 74 years-old Male presenting with fall, history of dementia, head injury, combative. FINDINGS: Proportional ventricular and sulcal prominence, likely age-related parenchymal volume loss. No hemorrhage. Periventricular and subcortical white matter hypoattenuation, nonspecific but likely indicative of chronic small vessel ischemic change. Extensive old lacunar infarcts in the right frontal lobe subcortical white matter. This is unchanged. No acute territorial infarct. No mass effect or midline shift. No extra-axial fluid collection. Paranasal sinuses and mastoid air cells clear. Calvarium intact. IMPRESSION: 1. No significant change compared to the prior study. No acute intracranial abnormality. XR femur RT 2V routine CLINICAL HISTORY: 74 years-old Male presenting with fall, hip pain. FINDINGS: Interval development of a mildly comminuted intertrochanteric fracture of the right femur. There is a mildly displaced lesser trochanteric fracture fragment. There is diastases at the basicervical portion of the fracture plane. Mild varus angulation. The right femoral head remains congruent and acetabulum. Mild osteophytosis of the right hip. Visualized portion of the pelvis intact. IMPRESSION: Mildly displaced and mildly comminuted intertrochanteric right femur fracture with a dominant basicervical fracture plane. XR chest 1V portable CLINICAL HISTORY: 74 years-old Male presenting with fall. FINDINGS: Atherosclerosis of the aortic arch. Cardiac silhouette borderline enlarged. Mildly low lung volumes. Minimal left basilar opacity. No large effusion or pneumothorax. The patient is HENSLEY rotated. Degenerative changes of the thoracic spine. Osteopenia may be present. Deformities of several left lateral ribs suggested, namely at the fifth and sixth rib. These correlate with chronic fracture deformities evident on prior CT from June 2019. Upper abdomen normal. IMPRESSION: 1. Minimal left basilar opacities likely atelectasis or scarring. No convincing evidence of acute cardiopulmonary disease. CT cervical spine wo con CLINICAL HISTORY: 74 years-old Male presenting with fall, head injury, history of dementia, combative. FINDINGS: Normal cervical lordosis. Vertebral bodies maintain normal height and alignment. Osteopenia suspected. Severe intervertebral disc height loss at C5-6 and moderate height loss at C6-7. Disc osteophyte complexes at these levels. Only mild posterior bony spurring is present at C6-7. Limited evaluation of the soft tissues of the spinal canal demonstrate disc bulge at C5-6 also resulting in mild spinal canal effacement. Moderate degenerative changes of the lateral dental articulation. Facet arthropathy scattered throughout. Varying degrees of osseous neural foraminal narrowing result from facet arthropathy and uncovertebral hypertrophy. No acute fracture or subluxation. Visualized portion of the skull base intact. Paraspinal soft tissues within normal limits. IMPRESSION: 1. No acute osseous injury of the cervical spine. 2. Degenerative changes greatest at C5-6 and C6-7. Medications Administered Current Inpatient Medications Acetaminophen (Tylenol) 650 mg PO Q6H PRN PRN Reason: MILD Pain (Scale 1,2,3) Stop: 02/22/20 15:48 Acetaminophen (Tylenol) 1,000 mg PO Q8H [facility] Stop: 02/22/20 21:59 Bisacodyl (Dulcolax) 10 mg DE DAILY PRN PRN Reason: Constipation Stop: 02/22/20 15:48 Carbidopa/Levodopa (Sinemet 25/100 Mg) 1 tab PO TID@0800,1500,2000 [facility] Stop: 02/22/20 19:59 Finasteride (Proscar) 5 mg PO QAM [facility] Stop: 02/23/20 08:59 Cefazolin Sodium (Ancef 2000mg) 2,000 mg in 15 mls @ 3.75 mls/min IV PREOP [facility]; Protocol Stop: 01/25/20 05:59 Lisinopril (Zestril) 5 mg PO DAILY@0800 [facility] Stop: 02/23/20 07:59 Lorazepam (Ativan) 0.5 mg PO BID@0800,1999 [facility] Stop: 02/22/20 19:59 Magnesium Hydroxide (Milk Of Magnesia) 30 ml PO DAILY PRN PRN Reason: Constipation Stop: 02/22/20 15:48 Naloxone HCl (Narcan) 0.1 mg IV UD PRN PRN Reason: Opiate Overdose Stop: 02/22/20 15:48 Oxycodone HCl (Roxicodone Immediate Rel) 5 mg PO Q4H PRN PRN Reason: MODERATE Pain (Scale 4,5,6) Stop: 02/06/20 15:48 Pantoprazole Sodium (Protonix) 40 mg PO QDB [facility] Stop: 02/23/20 07:29 Potassium Chloride (Klor-Con M10) 10 meq PO DAILY@0800 [facility] Stop: 02/23/20 07:59 Senna/Docusate Sodium (Senokot S) 1 tab PO BID@08,1999 [facility] Stop: 02/22/20 19:59 Sertraline HCl (Zoloft) 100 mg PO QAM [facility] Stop: 02/23/20 08:59 Code Status & VTE Plan Code Status Full Code VTE Prophylaxis Plan VTE Prophylaxis will be ordered: Yes (1) Closed right hip fracture Encounter type: initial encounter Qualified Code(s): S72.001A - Fracture of unspecified part of neck of right femur, initial encounter for closed fracture
[2020-01-23] MEDS ORDERED: NALOXONE HCL 0.4 MG/1 ML VIAL/CARP IV PRN (15:49)
[2020-01-23] MEDS ORDERED: bisacodyL 10 MG SUPP PR PRN (15:49)
[2020-01-23] MEDS ORDERED: ACETAMINOPHEN 325 MG TAB PO PRN (15:49)
[2020-01-23 16:06] LABS: Appearance Urine Clear (Clear); Bacteria Urine Automated Negative (Negative); Bilirubin Urine Negative (Negative); Blood Urine 1+ (Negative); Color Urine Dark Yellow; Epithelial Cell Urine Auto >30 /lpf (0-5); Glucose Urine UA Negative (Negative); Ketones Urine 2+ (Negative); Leukocyte Esterase Urine Negative (Negative); Nitrite Urine Negative (Negative); Protein Urine Trace (Negative); Specific Gravity Urine 1.025 (1.000-1.030); Urobilinogen Urine Negative (Negative); pH Urine 6.5 (4.5-7.5)
[2020-01-23 16:47] LABS: Mucus Urine Present (None Prsent)
[2020-01-23] MEDS ORDERED: DOCUSATE SODIUM/SENNA 50/8.6MG TAB PO SCH (20:00)
[2020-01-23] MEDS ORDERED: ACETAMINOPHEN 500 MG TAB PO SCH (20:00)
[2020-01-23] MEDS: LORazepam 0.5 MG TAB PO SCH (20:48)
[2020-01-23] MEDS: DOCUSATE SODIUM/SENNA 50/8.6MG TAB PO SCH (20:48)
[2020-01-23] MEDS: CARBIDOPA/LEVODOPA 25/100MG TAB PO SCH (20:48)
[2020-01-23] MEDS: ACETAMINOPHEN 500 MG TAB PO SCH (20:48)
--- NOTE | 2020-01-23 22:31 | Electrocardiogram Report ---
Test Reason : Blood Pressure : / mmHG Vent. Rate : 056 BPM Atrial Rate : 056 BPM P-R Int : 172 ms QRS Dur : 094 ms QT Int : 434 ms P-R-T Axes : 062 007 039 degrees QTc Int : 418 ms Poor data quality, interpretation may be adversely affected Sinus bradycardia Inferior infarct (cited on or before 26-JUN-2019) Abnormal ECG When compared with ECG of 26-JUN-2019 19:17, No significant change was found Confirmed by James Grullon ([id number]) on 01/23/2020 10:31:52 PM Referred By: [facility] Confirmed By:James Grullon
[2020-01-24 01:14] LABS: Amphetamines+Metham, Urine Neg (Neg); Barbiturates, Urine Neg (Neg); Benzodiazepine, Urine Pos (Neg); Cocaine, Urine Neg (Neg); MDMA (Ecstacy), Urine Neg (Neg); Methadone, Urine Neg (Neg); Opiate, Urine Neg (Neg); Phencyclidine, Urine Neg (Neg)
[2020-01-24] MEDS ORDERED: CEFAZOLIN 2000MG 2,000 MG/15 ML SYR IV SCH (06:00)
[2020-01-24] MEDS: ACETAMINOPHEN 500 MG TAB PO SCH ×2 (06:25→15:10)
[2020-01-24 07:15] LABS: Hematocrit (blood only) 37.7 % (42-52); Hemoglobin 12.7 g/dL (14.0-18.0); Mean Corpuscular Hemoglobin 30.4 pg (25-34); Mean Corpuscular Hgb Conc 33.7 g/dL (32-36); Mean Corpuscular Volume 90.2 fL (80-100); Mean Platelet Volume 10.3 fL (7.4-10.4); Platelet Count 207 K/uL (130-400); RDW Coefficient of Variation 13.8 % (11.5-14.5); RDW Standard Deviation 45.5 fL (36.4-46.3); Red Blood Count 4.18 M/uL (4.7-6.1); White Blood Count 10.38 K/uL (4.8-10.8)
[2020-01-24] MEDS ORDERED: PANTOprazole 40 MG TAB PO SCH (07:30)
[2020-01-24 07:45] LABS: BUN Creatinine Ratio 20.6 (10-20); Calcium 8.1 mg/dl (8.5-10.1); Creatinine Clr Calc Pharmacy 87.2 ml/min; Est GFR (African American) 99.7; Potassium 3.4 mmol/L (3.5-5.1)
[2020-01-24] MEDS: CARBIDOPA/LEVODOPA 25/100MG TAB PO SCH ×3 (08:02→21:54)
[2020-01-24] MEDS: lisinopriL 5 MG TAB PO SCH (08:02)
[2020-01-24] MEDS: POTASSIUM CHLORIDE 10 MEQ TABCR PO SCH (08:02)
[2020-01-24] MEDS: LORazepam 0.5 MG TAB PO SCH ×2 (08:02→21:54)
[2020-01-24] MEDS: DOCUSATE SODIUM/SENNA 50/8.6MG TAB PO SCH ×2 (08:03→21:54)
[2020-01-24] MEDS ORDERED: FINASTERIDE 5 MG TAB PO SCH (09:00)
[2020-01-24] MEDS ORDERED: lisinopriL 5 MG TAB PO SCH (09:00)
[2020-01-24] MEDS ORDERED: SERTRALINE HCL 100 MG TABLET PO SCH (09:00)
--- NOTE | 2020-01-24 14:02 | Anesthesiology Consultation ---
Date of Service January 24, 2020 R Hip Fx Parkinsons Mild Dementia COVID19+ (asymptomatic) L4/5 Fusion Assessment & Plan (1) Encounter for pre-operative examination: Chart Review Chart Review: Acceptable Risk for Surgery and Patient NOT seen in Pre Admission Testing COVID 19+ OR/PACU/Anesthesia staff coordinated for necessary precautions. Consults Requested none Proposed Anesthesia Risk / Benefits Reviewed With: PT / POA / Parent / Guardian, Accepts Plan and Informed Consent Obtained History Height/Weight Height: 6 ft 2 in Weight: 80.6 kg Allergies Allergy/AdvReac Type Severity Reaction Status Date / Time Iodinated Contrast Media Allergy Unknown SKIN Verified 07/04/19 21:48 FLUSHES Medications Home Medications Medication Instructions Recorded Confirmed Last Taken acetaminophen [Acetaminophen Extra 500 mg PO Q4H PRN MDD 3 GMS 07/08/18 01/23/20 06/22/19 Strength] APAP/24 HOURS carbidopa-levodopa 1 tab PO TID 07/08/18 01/23/20 01/23/20 08:00 ergocalciferol (vitamin D2) 50,000 unit PO WK 07/08/18 01/23/20 01/18/20 08:00 [Vitamin D2] potassium chloride 10 meq PO QAM 07/08/18 01/23/20 01/23/20 08:00 finasteride 5 mg PO QAM 06/26/19 01/23/20 01/23/20 08:00 melatonin 5 mg PO HS 06/26/19 01/23/20 01/22/20 20:00 pantoprazole 40 mg PO QAM 06/26/19 01/23/20 01/23/20 0800 sertraline 100 mg PO QAM 06/26/19 01/23/20 01/23/20 08:00 brimonidine-timolol [Combigan] 1 drp OPB BID 01/23/20 01/23/20 01/23/20 08:00 dorzolamide-timolol 1 drp OPB BID 01/23/20 01/23/20 01/23/20 08:00 lisinopril 5 mg PO QAM 01/23/20 01/23/20 01/23/20 08:00 lorazepam 0.5 mg PO BID 01/23/20 01/23/20 01/23/20 08:00 sennosides-docusate sodium [Senna 1 tab PO BID 01/23/20 01/23/20 01/23/20 08:00 Plus] Active Medications Generic Name Dose Route Start Last Admin Trade Name Mary Jane PRN Reason Stop Dose Admin Acetaminophen 1,000 mg 01/23/20 22:00 01/24/20 06:25 Tylenol PO 02/22/20 21:59 1,000 mg Q8H LISA Administration Carbidopa/Levodopa 1 tab 01/23/20 20:00 01/24/20 08:02 Sinemet 25/100 Mg PO 02/22/20 19:59 1 tab TID@0800,1499,1999 LISA Administration Lisinopril 5 mg 01/24/20 08:00 01/24/20 08:02 Zestril PO 02/23/20 07:59 5 mg DAILY@0800 LISA Administration Lorazepam 0.5 mg 01/23/20 20:00 01/24/20 08:02 Ativan PO 02/22/20 19:59 0.5 mg BID@0800,1999 LISA Administration Potassium Chloride 10 meq 01/24/20 08:00 01/24/20 08:02 Klor-Con M10 PO 02/23/20 07:59 10 meq DAILY@0800 LISA Administration Senna/Docusate Sodium 1 tab 01/23/20 20:00 01/24/20 08:03 Senokot S PO 02/22/20 19:59 1 tab BID@0800,1999 LISA Administration Past Medical History Medical History (Updated 01/24/20 @ 14:01 by Ricky Hansen MD) Alzheimer disease Anxiety Dementia HTN (hypertension) Parkinson disease Substance abuse Exercise / Class Metabolic Activity II 4-5 Yardwork/Stairs/Walk up hill Past Family History Family History Other No pertinent family history in first degree relatives Past Surgical History Surgical History History of total left hip arthroplasty Past Anesthesia History No Hx of Anesthesia Complications and No Family Hx of Anesthesia Complications History of PONV No Hx of PONV and No Hx of Motion Sickness Social History Smoking Status: Former smoker Hx Alcohol Use: Yes Alcohol Intake Frequency Comment: heavy abuse up until 6 years ago per son Hx Substance Use: Yes substance use type: marijuana Substance Use Type Other:: Daily for 50 years Last Used Substance: Unknown Last Used Substance Other:: last used october 2017 Physical Exam Vital Signs Last Vital Signs Temp 36.9 C 01/24/20 11:33 Pulse 78 01/24/20 11:33 Resp 18 01/24/20 11:33 BP 103/59 L 01/24/20 11:33 Pulse Ox 94 01/24/20 11:33 ENMT Mouth: no dentition abnormality Thyromental Distance: > or= 3.5 Finger Breadths Mallampati Class: II Neck normal visual inspection Respiratory normal respiratory effort Auscultation: lungs clear to auscultation bilaterally Cardiovascular Rate/Rhythm: regular rate and regular rhythm Psychiatric Orientation: alert Testing Laboratory Results 01/24/20 06:52 01/24/20 06:52 PT 11.4 Seconds (9.0-12.0) 01/23/20 10:14 INR 1.1 (0.9-1.1) 01/23/20 10:14 Urine Color Dark Yellow 01/23/20 15:50 Urine Appearance Clear (Clear) 01/23/20 15:50 Urine pH 6.5 (4.5-7.5) 01/23/20 15:50 Ur Specific [place] 1.025 (1.000-1.030) 01/23/20 15:50 Urine Protein Trace (Negative) H 01/23/20 15:50 Urine Glucose (UA) Negative (Negative) 01/23/20 15:50 Urine Ketones 2+ (Negative) H 01/23/20 15:50 Urine Nitrite Negative (Negative) 01/23/20 15:50 Ur Leukocyte Esterase Negative (Negative) 01/23/20 15:50 Urine WBC (Auto) 1-5 /hpf (0-5) 01/23/20 15:50 Urine RBC (Auto) 10-30 /hpf (0-4) H 01/23/20 15:50 U Hyaline Cast (Auto) 1-5 /lpf (0-5) 01/23/20 15:50 U Epithel Cells (Auto) >30 /lpf (0-5) H 01/23/20 15:50 Urine Bacteria (Auto) Negative (Negative) 01/23/20 15:50 Blood Type O Positive 01/23/20 16:20 Antibody Screen NEGATIVE 01/23/20 16:20
--- NOTE | 2020-01-24 15:26 | Orthopedic Consultation ---
Date of Consultation January 24, 2020 Assessment & Plan (1) Closed right hip fracture: The patient is a 74 year old male with mildly displaced intertrochanteric right hip fracture. Patient presented from [facility] after a mechanical fall. In additional the patient had positive covid 19 exposure so he was tested upon admission due to being deemed high risk and placed on airborne precautions while test pending. Patient is COVID 19 positive on 01/24/20. The patient has been cleared medically for surgery, due to positive COVID 19, extra precautions have been initiated by the medical team, anesthesia and myself and we will proceed with surgery on 01/25/20. Hold anticoagulation. NPO after midnight, IV abx operations welder to OR. NWB RLE, bedrest. I have indicated the patient for right hip cephalomedullary nail and the risks, benefits, complications and alternatives to surgery were discussed with the patient's POA, son, Ken Lombardi. These include however not limited to, infections, blood clots, acute blood loss, injury to nerves, bones vessels, soft tissue, chronic pain, a rthrofibrosis, malunion, non-union, failure of the implants, need for additional surgery, loss of limb and loss of life. The alternative includes no surgery which would result in inability to ambulate and worsening clinical picture. The patient's son/POA would like to proceed with surgery and informed consent was obtained verbally. Thank you for the consultation. (2) COVID-19: History of Present Illness Reason for Consultation: Right intertrochanteric hip fracture Attending Physician: Sheila Rosas, History of Present Illness The patient is a 74 year old male who presented to [facility] from [facility] secondary to a fall onto his right side, subsequent pain and inability to ambulate. Patient is poor historian and a majority of the HPI was obtained from the chart and patient's son who is the POA via telephone. At the emergency department XRs demonstrated a intertrochanteric fracture of the right hip and the patient was subsequently admited for further treatment of his hip fracture. We were asked to see the patient in consultation. Allergies Allergy/AdvReac Type Severity Reaction Status Date / Time Iodinated Contrast Media Allergy Unknown SKIN Verified 07/04/19 21:48 FLUSHES Home Medications Home Medications Medication Instructions Recorded Confirmed Type acetaminophen [Acetaminophen Extra 500 mg PO Q4H PRN MDD 3 GMS 07/08/18 01/23/20 History Strength] APAP/24 HOURS carbidopa-levodopa 1 tab PO TID 07/08/18 01/23/20 History ergocalciferol (vitamin D2) 50,000 unit PO WK 07/08/18 01/23/20 History [Vitamin D2] potassium chloride 10 meq PO QAM 07/08/18 01/23/20 History finasteride 5 mg PO QAM 06/26/19 01/23/20 History melatonin 5 mg PO HS 06/26/19 01/23/20 History pantoprazole 40 mg PO QAM 06/26/19 01/23/20 History sertraline 100 mg PO QAM 06/26/19 01/23/20 History brimonidine-timolol [Combigan] 1 drp OPB BID 01/23/20 01/23/20 History dorzolamide-timolol 1 drp OPB BID 01/23/20 01/23/20 History lisinopril 5 mg PO QAM 01/23/20 01/23/20 History lorazepam 0.5 mg PO BID 01/23/20 01/23/20 History sennosides-docusate sodium [Senna 1 tab PO BID 01/23/20 01/23/20 History Plus] Patient History Medical History Alzheimer disease Anxiety Dementia HTN (hypertension) Parkinson disease Substance abuse Surgical History History of total left hip arthroplasty Family History Other No pertinent family history in first degree relatives Social History Preferred Language: Somali Communication Ability: Effective Navigation Teacher Required: No Beliefs That Will Affect Care: None marital status: Current Living Situation: Personal Care Facility current occupational status: employed Feels Safe at Home: Yes Safety Concerns: Feels Safe At This Time Smoking Status: Former smoker Hx Alcohol Use: Yes Hx Substance Use: Yes substance use type: marijuana Substance Use Type Other:: Daily for 50 years Last Used Substance: Unknown Last Used Substance Other:: last used october 2017 Review of Systems Review of Systems: Unobtainable due to cognitive status Constitutional: as per Subjective / HPI Physical Exam Physical Exam: Limited RLE PE secondary to mental status and fracture, RLE NVSI +EHL/FHL SILT grossly, +2 DP pulse, compartments soft NT, short externally rotated. Constitutional: WD/WN, vitals as above Results & Data ([place]) Vital Signs (Past 12 Hours) Vital Signs Temp Pulse Resp BP Pulse Ox 01/24/20 11:33 36.9 C 78 18 103/59 L 94 01/24/20 07:42 36.5 C 93 H 18 115/72 96 01/24/20 04:00 36.5 C 86 18 118/70 95 Laboratory Results 01/24/20 01/24/20 01/24/20 Range/Units 06:52 06:52 00:46 WBC 10.38 (4.8-10.8) K/uL RBC 4.18 L (4.7-6.1) M/uL Hgb 12.7 L (14.0-18.0) g/dL Hct 37.7 L (42-52) % MCV 90.2 (80-100) fL MCH 30.4 (25-34) pg MCHC 33.7 (32-36) g/dL RDW Std Deviation 45.5 (36.4-46.3) fL RDW Coeff of David 13.8 (11.5-14.5) % Plt Count 207 (130-400) K/uL MPV 10.3 (7.4-10.4) fL Sodium 140 (136-145) mmol/L Potassium 3.4 L (3.5-5.1) mmol/L Chloride 109 H (98-107) mmol/L Carbon Dioxide 22 (21-32) mmol/L Anion Gap 9.0 (3-11) BUN 18 D (7-18) mg/dl Creatinine 0.86 (0.6-1.4) mg/dl Est Cr Clr Drug Dosing 87.2 ml/min Est GFR ( Amer) 99.7 Est GFR (Non-Af Amer) 86.0 BUN/Creatinine Ratio 20.6 H (10-20) Glucose 108 H (70-99) mg/dl Calcium 8.1 L (8.5-10.1) mg/dl Urine Color Urine Appearance (Clear) Urine pH (4.5-7.5) Ur Specific [place] (1.000-1.030) Urine Protein (Negative) Urine Glucose (UA) (Negative) Urine Ketones (Negative) Urine Blood (Negative) Urine Nitrite (Negative) Urine Bilirubin (Negative) Urine Urobilinogen (Negative) Ur Leukocyte Esterase (Negative) Urine WBC (Auto) (0-5) /hpf Urine RBC (Auto) (0-4) /hpf U Hyaline Cast (Auto) (0-5) /lpf U Epithel Cells (Auto) (0-5) /lpf Urine Bacteria (Auto) (Negative) Ur Renal Epithelial Cell Urine Mucus (None Prsent) Nasal Screen MRSA (PCR) (Negative) Urine Opiates Screen (Neg) Ur Methadone, Qual (Neg) Urine Barbiturates (Neg) Ur Phencyclidine (PCP) (Neg) U Amphetamin/Meth Scrn (Neg) MDMA (Ecstasy) Screen (Neg) U OH-Alprazolam Confrm Pending U Benzodiazepines Scrn (Neg) 7-Amino Clonazepam Pending Ur Nordiazepam Confirm Pending U OH-ethylflurazepam Pending U Lorazepam Cnf GC/MS Pending U Oxazepam Confm GC/MS Pending Ur Temazepam Confirm Pending U OH-Triazolam Confirm Pending U OH-Midazolam Confirm Pending Ur Cocaine Metabolite (Neg) U Marijuana (THC) Screen (Neg) U Marijuana THC Carboxy Pending Drug Screen Comment Pending COVID-19 PCR (Negative) SARS-CoV-2 RNA (RT-PCR) Blood Type Antibody Screen 01/24/20 01/23/20 01/23/20 Range/Units 00:46 16:20 15:50 WBC (4.8-10.8) K/uL RBC (4.7-6.1) M/uL Hgb (14.0-18.0) g/dL Hct (42-52) % MCV (80-100) fL MCH (25-34) pg MCHC (32-36) g/dL RDW Std Deviation (36.4-46.3) fL RDW Coeff of David (11.5-14.5) % Plt Count (130-400) K/uL MPV (7.4-10.4) fL Sodium (136-145) mmol/L Potassium (3.5-5.1) mmol/L Chloride (98-107) mmol/L Carbon Dioxide (21-32) mmol/L Anion Gap (3-11) BUN (7-18) mg/dl Creatinine (0.6-1.4) mg/dl Est Cr Clr Drug Dosing ml/min Est GFR ( Amer) Est GFR (Non-Af Amer) BUN/Creatinine Ratio (10-20) Glucose (70-99) mg/dl Calcium (8.5-10.1) mg/dl Urine Color Urine Appearance (Clear) Urine pH (4.5-7.5) Ur Specific [place] (1.000-1.030) Urine Protein (Negative) Urine Glucose (UA) (Negative) Urine Ketones (Negative) Urine Blood (Negative) Urine Nitrite (Negative) Urine Bilirubin (Negative) Urine Urobilinogen (Negative) Ur Leukocyte Esterase (Negative) Urine WBC (Auto) (0-5) /hpf Urine RBC (Auto) (0-4) /hpf U Hyaline Cast (Auto) (0-5) /lpf U Epithel Cells (Auto) (0-5) /lpf Urine Bacteria (Auto) (Negative) Ur Renal Epithelial Cell Urine Mucus (None Prsent) Nasal Screen MRSA (PCR) Negative (Negative) Urine Opiates Screen Neg (Neg) Ur Methadone, Qual Neg (Neg) Urine Barbiturates Neg (Neg) Ur Phencyclidine (PCP) Neg (Neg) U Amphetamin/Meth Scrn Neg (Neg) MDMA (Ecstasy) Screen Neg (Neg) U OH-Alprazolam Confrm U Benzodiazepines Scrn Pos H (Neg) 7-Amino Clonazepam Ur Nordiazepam Confirm U OH-ethylflurazepam U Lorazepam Cnf GC/MS U Oxazepam Confm GC/MS Ur Temazepam Confirm U OH-Triazolam Confirm U OH-Midazolam Confirm Ur Cocaine Metabolite Neg (Neg) U Marijuana (THC) Screen Pos H (Neg) U Marijuana THC Carboxy Drug Screen Comment COVID-19 PCR (Negative) SARS-CoV-2 RNA (RT-PCR) Blood Type O Positive Antibody Screen NEGATIVE 01/23/20 01/23/20 01/23/20 Range/Units 15:50 12:50 12:50 WBC (4.8-10.8) K/uL RBC (4.7-6.1) M/uL Hgb (14.0-18.0) g/dL Hct (42-52) % MCV (80-100) fL MCH (25-34) pg MCHC (32-36) g/dL RDW Std Deviation (36.4-46.3) fL RDW Coeff of David (11.5-14.5) % Plt Count (130-400) K/uL MPV (7.4-10.4) fL Sodium (136-145) mmol/L Potassium (3.5-5.1) mmol/L Chloride (98-107) mmol/L Carbon Dioxide (21-32) mmol/L Anion Gap (3-11) BUN (7-18) mg/dl Creatinine (0.6-1.4) mg/dl Est Cr Clr Drug Dosing ml/min Est GFR ( Amer) Est GFR (Non-Af Amer) BUN/Creatinine Ratio (10-20) Glucose (70-99) mg/dl Calcium (8.5-10.1) mg/dl Urine Color Dark Yellow Urine Appearance Clear (Clear) Urine pH 6.5 (4.5-7.5) Ur Specific [place] 1.025 (1.000-1.030) Urine Protein Trace H (Negative) Urine Glucose (UA) Negative (Negative) Urine Ketones 2+ H (Negative) Urine Blood 1+ H (Negative) Urine Nitrite Negative (Negative) Urine Bilirubin Negative (Negative) Urine Urobilinogen Negative (Negative) Ur Leukocyte Esterase Negative (Negative) Urine WBC (Auto) 1-5 (0-5) /hpf Urine RBC (Auto) 10-30 H (0-4) /hpf U Hyaline Cast (Auto) 1-5 (0-5) /lpf U Epithel Cells (Auto) >30 H (0-5) /lpf Urine Bacteria (Auto) Negative (Negative) Ur Renal Epithelial Cell Not Reportable Urine Mucus Present A (None Prsent) Nasal Screen MRSA (PCR) (Negative) Urine Opiates Screen (Neg) Ur Methadone, Qual (Neg) Urine Barbiturates (Neg) Ur Phencyclidine (PCP) (Neg) U Amphetamin/Meth Scrn (Neg) MDMA (Ecstasy) Screen (Neg) U OH-Alprazolam Confrm U Benzodiazepines Scrn (Neg) 7-Amino Clonazepam Ur Nordiazepam Confirm U OH-ethylflurazepam U Lorazepam Cnf GC/MS U Oxazepam Confm GC/MS Ur Temazepam Confirm U OH-Triazolam Confirm U OH-Midazolam Confirm Ur Cocaine Metabolite (Neg) U Marijuana (THC) Screen (Neg) U Marijuana THC Carboxy Drug Screen Comment COVID-19 PCR POSITIVE A* (Negative) SARS-CoV-2 RNA (RT-PCR) Cancelled Blood Type Antibody Screen Diagnostic Findings XR pelvis 1-2V routine CLINICAL HISTORY: 74 years-old Male presenting with fall. TECHNIQUE: Single frontal view of the pelvis was obtained. COMPARISON: 06/26/2019. FINDINGS: Interval development of a mildly comminuted and mildly displaced fracture of the intertrochanteric and basicervical region of the right femur. The right hip joint remains congruent with mild degenerative changes evident. Redemonstration of total left hip arthroplasty. Prominent heterotopic ossification along the superior and inferior aspects of the left hip, which is nearly bridging. The bony pelvis is intact allowing for HENSLEY rotation and suspected osteopenia. Arcuate lines of the sacrum intact. Sacroiliac joints and pubic symphysis grossly congruent. Posterior lumbar fusion hardware noted. IMPRESSION: Mildly comminuted and mildly displaced intertrochanteric/basicervical right femur fracture. XR femur RT 2V routine CLINICAL HISTORY: 74 years-old Male presenting with fall, hip pain. TECHNIQUE: Frontal and lateral views of the right femur were obtained. COMPARISON: 06/26/2019. FINDINGS: Interval development of a mildly comminuted intertrochanteric fracture of the right femur. There is a mildly displaced lesser trochanteric fracture fragment. There is diastases at the basicervical portion of the fracture plane. Mild varus angulation. The right femoral head remains congruent and acetabulum. Mild osteophytosis of the right hip. Visualized portion of the pelvis intact. IMPRESSION: Mildly displaced and mildly comminuted intertrochanteric right femur fracture with a dominant basicervical fracture plane. (1) Closed right hip fracture Encounter type: initial encounter Qualified Code(s): S72.001A - Fracture of unspecified part of neck of right femur, initial encounter for closed fracture
--- NOTE | 2020-01-24 15:35 | Hospitalist Progress Note ---
Date of Service January 24, 2020 Assessment & Plan (1) Closed right hip fracture: Mechanical fall s/p closed right hip fracture. Planned for fracture repair tomorrow so appropriate isolation preparation can take place in the OR. Pain well managed. Cont SCDs for DVT prophy at this time. (2) COVID-19: Consulting ID for assistance with possible treatments. Currently patient has no respiratory symptoms. (3) Anxiety: Sertraline and Lorazepam per home regimen. (4) Substance abuse: Reports marijuana use last week. Prior h/o alcohol but sober for many years. (5) Dementia: Parkinson's dementia. Per [facility]. (6) Parkinson disease: Sinemet. PT/OT per Ortho. (7) HTN (hypertension): BP soft today, so holding losartan. Will cont to hold perioperatively. (8) DVT prophylaxis: SCDs Full Code Dispo-surgery planned for noon tomorrow. Updated son by phone. Sheila Rosas DO [facility] Hospitalist Admission and Anticipated Discharge Date Admission Date: January 23, 2020 Subjective Pt doing well today Hip pain present but manageable Reported diarrhea, but this was not the case per nursing Reports some abdominal pain around the right hip area, possibly referred. Denies chest pain, SOB, coughing, fevers, chills Found to be COVID + on rapid screening. OR needs one day to prepare for appropriate isolation so his surgery was pushed until tomorrow. Review of Systems Review of Systems: All systems reviewed & are unremarkable except as noted in Subjective Physical Exam Physical Exam: CONSTITUTIONAL: WNWD, vitals as above, generally well- appearing, appears comfortable. EYES: pupils are round and equal bilaterally, normal conjunctivae, no scleral icterus ENT: external ear and nose normal, MMM NECK: trachea midline RESPIRATORY: clear to auscultation bilaterally, no crackles, rales or wheezes, normal respiratory effort CARDIOVASCULAR: regular rate and rhythm, S1 and 2 heard without murmurs, gallops or rubs, no JVD, no peripheral edema GASTROINTESTINAL: soft, nontender, nondistended MUSCULOSKELETAL: rigid extremities difficult to passively extend and limited exam secondary to pain in setting of acute hip fracture. Deconditioned. SKIN: warm and dry NEUROLOGIC: CN 2-12 grossly intact, normal cognition, normal speech, no gross focal deficits. PSYCHIATRIC: alert cooperative and oriented to person and place Results & Data Results & Data ([facility]) Vital Signs (Past 12 Hours) Vital Signs Temp Pulse Resp BP Pulse Ox 01/24/20 11:33 36.9 C 78 18 103/59 L 94 01/24/20 07:42 36.5 C 93 H 18 115/72 96 01/24/20 04:00 36.5 C 86 18 118/70 95 Laboratory Results Short CBC 01/24/20 Range/Units 06:52 WBC 10.38 (4.8-10.8) K/uL Hgb 12.7 L (14.0-18.0) g/dL Hct 37.7 L (42-52) % Plt Count 207 (130-400) K/uL BMP 01/24/20 06:52 Sodium 140 Potassium 3.4 L Chloride 109 H Carbon Dioxide 22 BUN 18 D Creatinine 0.86 Glucose 108 H Calcium 8.1 L Urine 01/23/20 Range/Units 15:50 Urine Color Dark Yellow Urine Appearance Clear (Clear) Urine pH 6.5 (4.5-7.5) Ur Specific [place] 1.025 (1.000-1.030) Urine Protein Trace H (Negative) Urine Glucose (UA) Negative (Negative) Diagnostic Findings COVID-19 + on rapid screening Medications Administered Current Inpatient Medications Acetaminophen (Tylenol) 650 mg PO Q6H PRN PRN Reason: MILD Pain (Scale 1,2,3) Stop: 02/22/20 15:48 Acetaminophen (Tylenol) 1,000 mg PO Q8H LISA Stop: 02/22/20 21:59 Last Admin: 01/24/20 15:10 Dose: 1,000 mg Documented by: Bisacodyl (Dulcolax) 10 mg SD DAILY PRN PRN Reason: Constipation Stop: 02/22/20 15:48 Carbidopa/Levodopa (Sinemet 25/100 Mg) 1 tab PO TID@0800,1500,2000 LISA Stop: 02/22/20 19:59 Last Admin: 01/24/20 15:10 Dose: 1 tab Documented by: Finasteride (Proscar) 5 mg PO QAM@0800 LISA Stop: 02/24/20 07:59 Cefazolin Sodium (Ancef 2000mg) 2,000 mg in 15 mls @ 3.75 mls/min IV PREOP LISA; Protocol Stop: 01/25/20 05:59 Lisinopril (Zestril) 5 mg PO DAILY@0800 [facility] Stop: 02/23/20 07:59 Last Admin: 01/24/20 08:02 Dose: 5 mg Documented by: Lorazepam (Ativan) 0.5 mg PO BID@ [facility] Stop: 02/22/20 19:59 Last Admin: 01/24/20 08:02 Dose: 0.5 mg Documented by: Magnesium Hydroxide (Milk Of Magnesia) 30 ml PO DAILY PRN PRN Reason: Constipation Stop: 02/22/20 15:48 Naloxone HCl (Narcan) 0.1 mg IV UD PRN PRN Reason: Opiate Overdose Stop: 02/22/20 15:48 Oxycodone HCl (Roxicodone Immediate Rel) 5 mg PO Q4H PRN PRN Reason: MODERATE Pain (Scale 4,5,6) Stop: 02/06/20 15:48 Pantoprazole Sodium (Protonix) 40 mg PO QDB@0800 [facility] Stop: 02/24/20 07:59 Potassium Chloride (Klor-Con M10) 10 meq PO DAILY@0800 [facility] Stop: 02/23/20 07:59 Last Admin: 01/24/20 08:02 Dose: 10 meq Documented by: Senna/Docusate Sodium (Senokot S) 1 tab PO BID@ [facility] Stop: 02/22/20 19:59 Last Admin: 01/24/20 08:03 Dose: 1 tab Documented by: Sertraline HCl (Zoloft) 100 mg PO QAM@0800 [facility] Stop: 02/24/20 07:59 (1) Closed right hip fracture Encounter type: initial encounter Qualified Code(s): S72.001A - Fracture of unspecified part of neck of right femur, initial encounter for closed fracture
[2020-01-25] MEDS: ACETAMINOPHEN 500 MG TAB PO SCH ×4 (01:12→23:29)
[2020-01-25 05:18] LABS: Hematocrit (blood only) 34.7 % (42-52); Hemoglobin 11.6 g/dL (14.0-18.0); Mean Corpuscular Hemoglobin 30.1 pg (25-34); Mean Corpuscular Hgb Conc 33.4 g/dL (32-36); Mean Corpuscular Volume 90.1 fL (80-100); Mean Platelet Volume 10.3 fL (7.4-10.4); Platelet Count 191 K/uL (130-400); RDW Coefficient of Variation 13.9 % (11.5-14.5); RDW Standard Deviation 46.4 fL (36.4-46.3); Red Blood Count 3.85 M/uL (4.7-6.1); White Blood Count 8.97 K/uL (4.8-10.8)
[2020-01-25 05:45] LABS: BUN Creatinine Ratio 31.3 (10-20); Creatinine Clr Calc Pharmacy 77.3 ml/min; Est GFR (African American) 89.4; Est GFR (Non-African American) 77.1; Potassium 3.6 mmol/L (3.5-5.1)
[2020-01-25] MEDS: FINASTERIDE 5 MG TAB PO SCH (07:54)
[2020-01-25] MEDS: POTASSIUM CHLORIDE 10 MEQ TABCR PO SCH (07:54)
[2020-01-25] MEDS: DOCUSATE SODIUM/SENNA 50/8.6MG TAB PO SCH ×2 (07:54→19:58)
[2020-01-25] MEDS: CARBIDOPA/LEVODOPA 25/100MG TAB PO SCH ×3 (07:56→19:58)
[2020-01-25] MEDS: PANTOprazole 40 MG TAB PO SCH (07:57)
[2020-01-25] MEDS: SERTRALINE HCL 100 MG TABLET PO SCH (07:58)
[2020-01-25] MEDS: LORazepam 0.5 MG TAB PO SCH ×2 (08:00→19:58)
[2020-01-25] MEDS ORDERED: CEFAZOLIN 2000MG 2,000 MG/15 ML SYR IV ONE (08:00)
[2020-01-25] MEDS ORDERED: PROPOFOL IV EMULSION 10 MG/ML 20 ML VIAL IV ONE (10:01)
[2020-01-25] MEDS ORDERED: ONDANSETRON INJ 2 MG/ML 2 ML VIAL ONE (10:01)
--- NOTE | 2020-01-25 10:01 | Infectious Disease Consult ---
Date of Consultation January 25, 2020 Assessment & Plan (1) COVID-19: continue supportive care. discussed with primary, can offer treatment with hydroxychloroquine but no clear proven benefits. would suggest course as outlined in COVID protocol via pharmacy. History of Present Illness Attending Physician: Sheila Rosas DO pt admitted from [facility] after fall. h/o parkinsons dementia. x ray in ER showed fracture, admitted for surgical repair with ortho today. Because he resides at a facilty with ongoing COVID outbreak he was tested and test result was +. now in isolation, surgery planned for today. ID consulted due to + test result.CXR negative, no reported pulm symptoms. afebrile since admission. creat normal, wbc normal. Allergies Allergy/AdvReac Type Severity Reaction Status Date / Time Iodinated Contrast Media Allergy Unknown SKIN Verified 07/04/19 21:48 FLUSHES Home Medications Home Medications Medication Instructions Recorded Confirmed Type acetaminophen [Acetaminophen Extra 500 mg PO Q4H PRN MDD 3 GMS 07/08/18 01/23/20 History Strength] APAP/24 HOURS carbidopa-levodopa 1 tab PO TID 07/08/18 01/23/20 History ergocalciferol (vitamin D2) 50,000 unit PO WK 07/08/18 01/23/20 History [Vitamin D2] potassium chloride 10 meq PO QAM 07/08/18 01/23/20 History finasteride 5 mg PO QAM 06/26/19 01/23/20 History melatonin 5 mg PO HS 06/26/19 01/23/20 History pantoprazole 40 mg PO QAM 06/26/19 01/23/20 History sertraline 100 mg PO QAM 06/26/19 01/23/20 History brimonidine-timolol [Combigan] 1 drp OPB BID 01/23/20 01/23/20 History dorzolamide-timolol 1 drp OPB BID 01/23/20 01/23/20 History lisinopril 5 mg PO QAM 01/23/20 01/23/20 History lorazepam 0.5 mg PO BID 01/23/20 01/23/20 History sennosides-docusate sodium [Senna 1 tab PO BID 01/23/20 01/23/20 History Plus] Patient History Medical History Alzheimer disease Anxiety Dementia HTN (hypertension) Parkinson disease Substance abuse Surgical History History of total left hip arthroplasty Family History Other No pertinent family history in first degree relatives Social History Preferred Language: Liberian Communication Ability: Effective Decision Science Analyst Required: No Beliefs That Will Affect Care: None marital status: Current Living Situation: Personal Care Facility current occupational status: employed Feels Safe at Home: Yes Safety Concerns: Feels Safe At This Time Smoking Status: Former smoker Hx Alcohol Use: Yes Hx Substance Use: Yes substance use type: marijuana Substance Use Type Other:: Daily for 50 years Last Used Substance: Unknown Last Used Substance Other:: last used october 2017 Review of Systems Review of Systems: per h&p Results & Data ([facility]) Vital Signs (Past 12 Hours) Vital Signs Temp Pulse Resp BP Pulse Ox 01/25/20 08:00 36.8 C 80 16 114/70 94 01/25/20 04:00 36.4 C L 80 20 106/67 94 PG Care Time/CCT Total # of Minutes Spent Total Time Spent with Patient: Total time spent is greater than 50% in coordination of care (as documented) at patient's floor/unit and/or counseling patient: Coding Level of Care Code 05565 Inpt Consult Level 2 Diagnoses COVID-19 U07.1
[2020-01-25] MEDS ORDERED: MIDAZOLAM HCL 1 MG/ML 2ML VIAL ONE (10:02)
[2020-01-25] MEDS ORDERED: KETAMINE HCL INJ 50 MG/ML 10 ML VIAL ONE (10:02)
[2020-01-25] MEDS ORDERED: GLYCOPYRROLATE 0.2 MG/ML VIAL ONE (10:02)
[2020-01-25] MEDS ORDERED: BUPIVACAINE 0.5 % 5 MG/1 ML PF 10ML VIAL ONE (10:04)
[2020-01-25] MEDS ORDERED: CHOLECALCIFEROL 1,000 UNITS 25 MCG TAB PO SCH (11:15)
--- NOTE | 2020-01-25 11:20 | Hospitalist Progress Note ---
Date of Service January 25, 2020 Assessment & Plan (1) Closed right hip fracture: Mechanical fall s/p closed right hip fracture. Planned for fracture repair today. Cont SCDs for DVT prophy at this time. PT/OT per ortho (2) COVID-19: Currently patient has no respiratory symptoms and no evidence of symptomatic disease. No oxygen requirements. No investigational treatments being offered at this time (Plaquenil, convalescent plasma) (3) Anxiety: Sertraline and Lorazepam per home regimen. (4) Substance abuse: Reports marijuana use last week. Prior h/o alcohol but sober for many years. (5) Dementia: Parkinson's dementia. Per [facility] Neurology. Reorient as needed. Higher risk for delirium perioperatively. (6) Parkinson disease: Sinemet. PT/OT per Ortho. (7) HTN (hypertension): BP soft today, so holding losartan. Will cont to hold perioperatively. (8) DVT prophylaxis: SCDs Full Code Dispo-surgery planned for today. Updated son by phone. Sheila Rosas DO [facility] Hospitalist Admission and Anticipated Discharge Date Admission Date: January 23, 2020 Subjective doing well today oriented pain is controlled. Planning for surgery this am Review of Systems Review of Systems: All systems reviewed & are unremarkable except as noted in Subjective Physical Exam Physical Exam: CONSTITUTIONAL: WNWD, vitals as above, generally well- appearing, appears comfortable. EYES: normal conjunctivae, no scleral icterus ENT: external ear and nose normal, MMM NECK: trachea midline RESPIRATORY: clear to auscultation bilaterally, no crackles, rales or wheezes, normal respiratory effort CARDIOVASCULAR: regular rate and rhythm, S1 and 2 heard without murmurs, gallops or rubs, no JVD, no peripheral edema GASTROINTESTINAL: soft, nontender, nondistended MUSCULOSKELETAL: rigid extremities difficult to passively extend and limited exam secondary to pain in setting of acute hip fracture. Deconditioned. SKIN: warm and dry NEUROLOGIC: CN 2-12 grossly intact, normal cognition, normal speech, no gross focal deficits. PSYCHIATRIC: alert cooperative and oriented to person and place Results & Data Results & Data ([facility]) Vital Signs (Past 12 Hours) Vital Signs Temp Pulse Resp BP Pulse Ox 01/25/20 08:00 36.8 C 80 16 114/70 94 01/25/20 04:00 36.4 C L 80 20 106/67 94 Laboratory Results Short CBC 01/25/20 Range/Units 04:46 WBC 8.97 (4.8-10.8) K/uL Hgb 11.6 L (14.0-18.0) g/dL Hct 34.7 L (42-52) % Plt Count 191 (130-400) K/uL BMP 01/25/20 04:46 Sodium 140 Potassium 3.6 Chloride 109 H Carbon Dioxide 24 BUN 30 H D Creatinine 0.97 Glucose 107 H Calcium 8.0 L Medications Administered Current Inpatient Medications Acetaminophen (Tylenol) 650 mg PO Q6H PRN PRN Reason: MILD Pain (Scale 1,2,3) Stop: 02/22/20 15:48 Acetaminophen (Tylenol) 1,000 mg PO Q8H [facility] Stop: 02/22/20 21:59 Last Admin: 01/25/20 15:56 Dose: 1,000 mg Documented by: Ascorbic Acid (Vitamin C) 500 mg PO BID@0800,1999 [facility] Stop: 02/24/20 19:59 Atropine Sulfate (Atropine Sulfate) 0.5 mg IV Q1M PRN PRN Reason: PACU Use-HR<40 &/or Bradycardi Stop: 01/25/20 22:16 Bisacodyl (Dulcolax) 10 mg [place] DAILY PRN PRN Reason: Constipation Stop: 02/22/20 15:48 Carbidopa/Levodopa (Sinemet 25/100 Mg) 1 tab PO TID@0800,1500,1999 [facility] Stop: 02/22/20 19:59 Last Admin: 01/25/20 15:55 Dose: 1 tab Documented by: Enoxaparin Sodium (Lovenox) 40 mg SQ Q24H [facility] Stop: 02/25/20 08:59 Ephedrine Sulfate (Ephedrine Sulfate) 5 mg IV Q5M PRN PRN Reason: PACU Use Only-SBP<90 mmHg Stop: 01/25/20 22:16 Fentanyl Citrate (Fentanyl Citrate) 25 mcg IV Q5M PRN PRN Reason: PACU Use Only-Pain Stop: 01/25/20 22:16 Finasteride (Proscar) 5 mg PO QAM@0800 [facility] Stop: 02/24/20 07:59 Last Admin: 01/25/20 07:54 Dose: 5 mg Documented by: Flumazenil (Romazicon) 0.2 mg IV Q2M PRN PRN Reason: PACU Use Only-Benzo Reversal Stop: 01/25/20 22:17 Promethazine HCl 12.5 mg/ (Sodium Chloride) 50.5 mls @ 204 mls/hr IV ONCE PRN PRN Reason: PACU Use Only-Nausea/Vomiting Stop: 01/25/20 22:17 Sodium Chloride (Nss 1000ml) 1,000 mls @ 85 mls/hr IV .[id number] [facility] Stop: 02/24/20 15:59 Cefazolin Sodium (Ancef 2000mg) 2,000 mg in 15 mls @ 3.75 mls/min IV Q8H [facility] Stop: 01/26/20 04:03 Labetalol HCl (Normodyne) 5 mg IV Q5M PRN PRN Reason: PACU Use-SBP>160 or DBP>100 Stop: 01/25/20 22:17 Lisinopril (Zestril) 5 mg PO DAILY@0800 [facility] Stop: 02/23/20 07:59 Last Admin: 01/24/20 08:02 Dose: 5 mg Documented by: Lorazepam (Ativan) 0.5 mg PO BID@0800,2000 [facility] Stop: 02/22/20 19:59 Last Admin: 01/25/20 08:00 Dose: Not Given Documented by: Magnesium Hydroxide (Milk Of Magnesia) 30 ml PO DAILY PRN PRN Reason: Constipation Stop: 02/22/20 15:48 Magnesium Oxide (Mag-Ox) 400 mg PO QAM@0800 [facility] Stop: 02/24/20 12:44 Naloxone HCl (Narcan) 0.2 mg IV Q2M PRN PRN Reason: PACU Use Only-Opiate Reversal Stop: 01/25/20 22:16 Naloxone HCl (Narcan) 0.1 mg IV UD PRN PRN Reason: Opioid Overdose Stop: 02/24/20 15:43 Ondansetron HCl (Zofran) 4 mg IV ONCE PRN PRN Reason: PACU Use Only-Nausea/Vomiting Stop: 01/25/20 22:17 Oxycodone HCl (Roxicodone Immediate Rel) 5 mg PO Q4H PRN PRN Reason: MODERATE Pain (Scale 4,5,6) Stop: 02/06/20 15:48 Pantoprazole Sodium (Protonix) 40 mg PO QDB@0800 [facility] Stop: 02/24/20 07:59 Last Admin: 01/25/20 07:57 Dose: 40 mg Documented by: Potassium Chloride (Klor-Con M10) 10 meq PO DAILY@0800 [facility] Stop: 02/23/20 07:59 Last Admin: 01/25/20 07:54 Dose: 10 meq Documented by: Senna/Docusate Sodium (Senokot S) 1 tab PO BID@799,1999 [facility] Stop: 02/22/20 19:59 Last Admin: 01/25/20 07:54 Dose: Not Given Documented by: Sertraline HCl (Zoloft) 100 mg PO QAM@0800 [facility] Stop: 02/24/20 07:59 Last Admin: 01/25/20 07:58 Dose: 100 mg Documented by: Zinc Sulfate (Zinc Sulfate) 220 mg PO QAM@0800 [facility] Stop: 02/24/20 12:44 Last Admin: 01/25/20 15:55 Dose: 220 mg Documented by: (1) Closed right hip fracture Encounter type: initial encounter Qualified Code(s): S72.001A - Fracture of unspecified part of neck of right femur, initial encounter for closed fracture
[2020-01-25] MEDS ORDERED: BUPIVACAINE/EPINEPHRINE 0.5% MPF 1:200,000 10 ML VIAL ONE (11:53)
--- NOTE | 2020-01-25 12:14 | History & Physical Bridge Note ---
Date of Service January 25, 2020 History & Physical Bridge Note I have examined the patient, reviewed the History & Physical and in the interval since the performance of the History & Physical I have noted the following changes of clinical significance: no changes noted
[2020-01-25] MEDS ORDERED: CEFAZOLIN 2,000 MG/15 ML IV PUSH IV ONE (12:24)
[2020-01-25] MEDS ORDERED: fentaNYL citrate 100 MCG/2 ML VIAL IV PRN (14:16)
[2020-01-25] MEDS ORDERED: ATROPINE SULFATE 0.1 MG/ML 10ML SYR IV PRN (14:16)
[2020-01-25] MEDS ORDERED: FLUMAZENIL 0.1 MG/1 ML 10 ML VIAL IV PRN (14:16)
[2020-01-25] MEDS ORDERED: LABETALOL HCL IV 5 MG/ML 20ML IV PRN (14:16)
[2020-01-25] MEDS ORDERED: PROMETHAZINE HCL 12.5 MG in SODIUM CHLORIDE 0.9% 50 ML IV PRN (14:16)
[2020-01-25] MEDS ORDERED: ePHEDrine sulfate 50 MG/ML AMP IV PRN (14:16)
[2020-01-25] MEDS ORDERED: NALOXONE HCL 0.4 MG/1 ML VIAL/CARP IV PRN ×2 (14:16→15:44)
[2020-01-25] MEDS ORDERED: ONDANSETRON INJ 2 MG/ML 2 ML VIAL IV PRN (14:16)
--- NOTE | 2020-01-25 14:23 | Fluoroscopy Report ---
FL hip RT 2-3V CLINICAL HISTORY: 74 years-old Male presenting with HIP FX. TECHNIQUE: 4 fluoroscopic image(s) recorded as part of an intraoperative procedure. COMPARISON: Plain radiographs from 01/23/2020. FINDINGS/IMPRESSION: There has been interval intramedullary nail fixation across the intertrochanteric fracture of the rig ht femur. Persistent displacement of the lesser trochanteric fracture fragment. No malalignment. Righ t hip joint remains congruent. Please see surgical report for further details. Fluoroscopy dosage (mGy): 54.15. Fluoroscopy time: 139.4 seconds. Number or time of high level fluoroscopy (HLF), digital spot, or digital subtraction images: 0. ACT 112: Negative or not required by law. Electronically signed by: Dayton Sales M.D. 01/25/2020 2:22 PM
--- NOTE | 2020-01-25 14:27 | Post Operative Brief Note ---
Immediate Post Op Note v1 Date of Surgery January 25, 2020 Pre & Post Diagnosis Operation Date: 01/25/20 09:25 Pre-Op Diagnosis: Right hip fracture - intertrochanteric Post-Op Diagnosis: Right hip fracture - Intertrochanteric I identified the patient and participated in the time-out.: Yes Procedure Operation Date: 01/25/20 09:25 Actual Procedures p Right hip cephalomedullary Nail(Right) - Giles Hanna DO Surgeon Giles Hanna DO Special Effects Artist none Estimated Blood Loss 25 Findings Consistent with Post-Op Diagnosis Specimens none Drains Bush Catheter Anesthesia Type Spinal MAC Complications none Disposition Disposition: Recovery Room Overlapping Procedure I was present for: the critical portions of procedure. I was immediately available: during the entire case. Back up surgeon: was not required during procedure.
--- NOTE | 2020-01-25 14:28 | Operative Report ---
Post Operative Report Pre & Post Diagnosis Operation Date: 01/25/20 09:25 Pre-Op Diagnosis: Right hip fractureintertrochanteric Post-Op Diagnosis: Right hip fractureintertrochanteric I identified the patient and participated in the time-out.: Yes Procedure Operation Date: 01/25/20 09:25 Actual Procedures p Right hip cephalo-medullary Nail(Right) - Giles Hanna DO Surgeon Giles Hanna DO State Appellate Clerk none Estimated Blood Loss 25 Findings Consistent with Post-Op Diagnosis Specimens None Anesthesia Type Spinal MAC Complications none Disposition Disposition: Recovery Room Indications The patient is a 74yo male with displaced right intertrochanteric hip fracture sustained after a fall from standing height [facility]. Due to outbreak of COVID-19 at the facility patient was tested upon admission and found to be positive for COVID-19. The patient was medically stabilized on 01/25/2020. I indicated the patient for right hip cephalomedullary nail. The patient Willard Lombardi was informed of the risks and benefits of surgery, which include but not limited to infection, bleeding, blood clots, damage to nerves, vessels, bone and soft tissue, dislocation, leg length discrepancy, malunion, nonunion, failure of the implants, need for additional surgery and . The patient son/POA chose to proceed with surgical intervention and informed consent was obtained verbally. Description of Procedure Following induction of adequate spinal anesthesia, the patient was placed on the fracture table. The left leg was placed in the well leg bryant and the right leg in the traction leg bryant. All bony prominences were protected. Utilizing c-arm fluoroscopy closed reduction of the fracture was performed. Once satisfied with fracture reduction the right hip was prepped and draped in the usual sterile manner. A time out was performed and site verified. The incision was made from the tip of the greater trochanter proximally. Subcutaneous tissue was sharply dissected to the tip of the greater trochanter, electrocautery used for hemostasis. Under fluoroscopic guidance the drill tipped guidewire was inserted at the tip of the greater trochanter and advanced into the medullary canal. Utilizing the intramedullary drill the guidewire was overdrilled with tissue protector attached. A 11 mm short Synthes TFN was inserted and impacted into position and confirmed by c-arm fluoroscopy. Next the aiming arm was attached to the insertion handle. A incision was made and carried down through subcutaneous tissues to bone. The blade guide sleeve was inserted and secured down to bone. The guide wire was passed across the fracture site to the tip of the femoral head, position was confirmed in the AP and lateral planes utilizing c-arm fluoroscopy. The guide pin was measured and the 11.0mm drill bit passed over the guide pin to open lateral cortex followed by a 6.0mm/10.0mm cannulated reamer to a depth of 105 mm. Next the helical blade was inserted and locked proximally. Traction was released and interfragmentary compression applied. Distally a stab incision was made in the skin and carried down to bone. The triple trocar assembly was inserted into the aiming guide to bone. Utilizing a 4.0mm drill, both cortices were drilled. The nail was locked distally using a single 4.9mm x 42 mm locking bolt. The aiming guide was removed at this time and final radiographs were obtained utilizing c-arm fluoroscopy to confirm overall position and fracture reduction. Incisions were irrigated with copious amounts of sterile saline solution. Subcutaneous tissue were injected utilizing .5% marcaine with epi. Deep closure was performed using #1 Vicryl followed by 2-0 Vicryl for subcutaneous tissues and elvira in the skin. Sterile dressing, Xeroform gauze, 4x4s and tegaderm were applied. The patient tolerated the procedure well and was transported to the PACU in stable condition. I attest to the content of the Intraoperative Record and any orders documented therein. Any exceptions are noted below.
--- NOTE | 2020-01-25 14:38 | Orthopedic Progress Note ---
Date of Service January 25, 2020 Assessment & Plan (1) Closed right hip fracture: Status post right hip cephalo-medullary nail -Ancef x24 -DVT prophylaxis SCDs, teds, Lovenox 40 mg daily -Toe-touch nonweightbearing right lower extremity -May participate in physical therapy once medically stabilized -Postoperative x-ray demonstrates a well aligned well fixed implant, reduced fracture site with near anatomic alignment. -A.m. labs (2) COVID-19: Admission and Anticipated Discharge Date Admission Date: January 23, 2020 Subjective Post Operative Progress Note Patient seen resting comfortably after surgery, denies pain or complaints, still feeling effects of spinal anesthesia. Review of Systems Review of Systems: All systems reviewed & are unremarkable except as noted in HPI & below Constitutional: as per Subjective / HPI Physical Exam Physical Exam: Physical exam right lower extremity limited secondary to spinal anesthesia, +2 dorsalis pedis pulse, compartment soft nontender, dressings clean dry and intact Constitutional: WD/WN, vitals as above Results & Data ([facility]) Vital Signs (Past 12 Hours) Vital Signs Temp Pulse Pulse Resp BP Pulse Ox 01/25/20 14:35 76 17 143/76 H 98 01/25/20 14:25 77 14 126/87 98 01/25/20 14:15 75 13 125/76 99 01/25/20 14:06 36.0 C L 79 14 132/77 99 01/25/20 08:00 36.8 C 80 16 114/70 94 01/25/20 04:00 36.4 C L 80 20 106/67 94 (1) Closed right hip fracture Encounter type: initial encounter Qualified Code(s): S72.001A - Fracture of unspecified part of neck of right femur, initial encounter for closed fracture
--- NOTE | 2020-01-25 15:04 | Anesthesiology Progress Note ---
Date of Service January 25, 2020 Anesthesia Post Procedure Vital Signs Vital Signs: Temp Pulse Pulse Resp BP Pulse Ox 01/25/20 14:45 79 19 125/84 97 01/25/20 14:35 76 17 143/76 H 98 01/25/20 14:25 77 14 126/87 98 01/25/20 14:15 75 13 125/76 99 01/25/20 14:06 36.0 C L 79 14 132/77 99 01/25/20 08:00 36.8 C 80 16 114/70 94 01/25/20 04:00 36.4 C L 80 20 106/67 94 01/24/20 21:47 36.9 C 86 20 114/60 96 Pain Intensity Right Hip: Pain Intensity: 0 Transfer of Care Handoff Completed per policy Notes Mental Status: alert / awake / arousable and participated in evaluation Nausea / Vomiting: adequately controlled Pain: adequately controlled Airway Patency, RR, SpO2: stable & adequate BP & HR: stable & adequate Hydration State: stable & adequate Neuraxial Anesthesia: was administered and sensory block is resolving Anesthetic Complications: no major complications apparent and Pt Satisfied with anesthetic care Notes: Confused, but oriented to person and place. Appears to be close to preoperative baseline (Hx of dementia and parkinsons).
--- NOTE | 2020-01-25 15:07 | XRay Report ---
XR hip RT min 2V CLINICAL HISTORY: 74 years-old Male presenting with Post-Operative implant position. TECHNIQUE: Frontal and crosstable lateral views of the right hip were obtained. COMPARISON: 01/23/2020. FINDINGS: There has been interval intramedullary nail fixation of the intertrochanteric right femur fracture. D istal interlocking screw in the proximal metaphyseal intramedullary nail portion. Mild displacement o f the lesser trochanteric fracture fragment. Right hip joint congruent. No malalignment. Overlying sk in elvira in the lateral right thigh. Limited evaluation of the hip on crosstable lateral view due t o overlapping soft tissues. Minimal soft tissue emphysema noted. Visualized portion of the pelvis int act. IMPRESSION: Expected internal fixation of the intertrochanteric right femur fracture. ACT 112: Negative or not required by law. Electronically signed by: Dayton Sales M.D. 01/25/2020 3:05 PM
[2020-01-25] MEDS: ZINC SULFATE 220 MG CAPSULE PO SCH (15:55)
[2020-01-25] MEDS: SODIUM CHLORIDE 0.9% 1000ML 1,000 ML IV SCH (16:21)
[2020-01-25] MEDS: MAGNESIUM OXIDE 400 MG TAB PO SCH (18:12)
[2020-01-25] MEDS: OXYCODONE HCL IR 5 MG TAB (IMMEDIATE RELEASE) PO PRN (18:12)
[2020-01-25] MEDS: CEFAZOLIN 2000MG 2,000 MG/15 ML SYR IV SCH (19:58)
[2020-01-25] MEDS: ASCORBIC ACID 500 MG TAB PO SCH (19:58)
[2020-01-25] MEDS ORDERED: PROMETHAZINE HCL 25 MG TAB PO PRN (20:15)
[2020-01-26] MEDS: CEFAZOLIN 2000MG 2,000 MG/15 ML SYR IV SCH (03:30)
[2020-01-26] MEDS: SODIUM CHLORIDE 0.9% 1000ML 1,000 ML IV SCH ×3 (03:46→17:47)
[2020-01-26] MEDS ORDERED: LORazepam 2 MG/ML VIAL (IM USE) IM STA (04:55)
[2020-01-26 05:39] LABS: Hematocrit (blood only) 31.7 % (42-52); Hemoglobin 10.6 g/dL (14.0-18.0); Mean Corpuscular Hgb Conc 33.4 g/dL (32-36); Mean Corpuscular Volume 89.8 fL (80-100); Mean Platelet Volume 10.3 fL (7.4-10.4); Platelet Count 193 K/uL (130-400); RDW Coefficient of Variation 13.8 % (11.5-14.5); RDW Standard Deviation 45.6 fL (36.4-46.3); Red Blood Count 3.53 M/uL (4.7-6.1); White Blood Count 9.76 K/uL (4.8-10.8)
[2020-01-26 06:21] LABS: Albumin Level 2.6 gm/dl (3.4-5.0); BUN Creatinine Ratio 39.1 (10-20); Calcium 7.7 mg/dl (8.5-10.1); Creatinine Clr Calc Pharmacy 94.9 ml/min; Est GFR (African American) 103.2; Est GFR (Non-African American) 89.1; Magnesium 2.1 mg/dl (1.8-2.4); Potassium 3.7 mmol/L (3.5-5.1)
[2020-01-26 06:22] LABS: Basophils # (auto) 0.01 K/uL (0-0.2); Basophils % (auto) 0.1 %; Eosinophils # (auto) 0.02 K/uL (0-0.5); Eosinophils % (auto) 0.2 %; Immature Granulocytes # (auto) 0.05 K/uL (0.00-0.02); Immature Granulocytes % (auto) 0.5 %; Lymphocytes # (auto) 0.74 K/uL (1.2-3.4); Lymphocytes % (auto) 7.6 %; Monocytes # (auto) 0.78 K/uL (0.11-0.59); Neutrophils # (auto) 8.16 K/uL (1.4-6.5); Neutrophils % (auto) 83.6 %
[2020-01-26 06:32] LABS: Albumin Globulin Ratio 0.7 (0.9-2); Bilirubin,Total 0.5 mg/dl (0.2-1); Globulin 3.5 gm/dl (2.5-4.0); Thyroid Stimulating Hormone 1.25 uIu/ml (0.300-4.500); Total Protein 6.1 gm/dl (6.4-8.2)
[2020-01-26 06:34] LABS: Appearance Urine Clear (Clear); Bacteria Urine Automated Negative (Negative); Bilirubin Urine Negative (Negative); Blood Urine Negative (Negative); Color Urine Yellow; Epithelial Cell Urine Auto 20-30 /lpf (0-5); Glucose Urine UA Negative (Negative); Ketones Urine 3+ (Negative); Leukocyte Esterase Urine Negative (Negative); Nitrite Urine Negative (Negative); Protein Urine 1+ (Negative); Specific Gravity Urine 1.038 (1.000-1.030); Urobilinogen Urine Negative (Negative); pH Urine 5.5 (4.5-7.5)
[2020-01-26] MEDS: DOCUSATE SODIUM/SENNA 50/8.6MG TAB PO SCH ×2 (07:51→20:38)
[2020-01-26] MEDS: POTASSIUM CHLORIDE 10 MEQ TABCR PO SCH (07:51)
[2020-01-26] MEDS: ASCORBIC ACID 500 MG TAB PO SCH ×2 (07:52→20:37)
[2020-01-26] MEDS: OXYCODONE HCL IR 5 MG TAB (IMMEDIATE RELEASE) PO PRN ×2 (07:52→20:34)
[2020-01-26] MEDS: CARBIDOPA/LEVODOPA 25/100MG TAB PO SCH ×3 (07:52→20:37)
[2020-01-26] MEDS: LORazepam 0.5 MG TAB PO SCH ×2 (07:52→20:34)
[2020-01-26] MEDS: FINASTERIDE 5 MG TAB PO SCH (07:52)
[2020-01-26] MEDS: SERTRALINE HCL 100 MG TABLET PO SCH (07:52)
[2020-01-26] MEDS: PANTOprazole 40 MG TAB PO SCH (07:52)
[2020-01-26] MEDS: lisinopriL 5 MG TAB PO SCH ×2 (07:53→16:22)
[2020-01-26] MEDS: ZINC SULFATE 220 MG CAPSULE PO SCH (07:53)
[2020-01-26] MEDS: ENOXAPARIN INJ 40 MG/0.4 ML SYR SQ SCH (07:54)
[2020-01-26] MEDS: MAGNESIUM OXIDE 400 MG TAB PO SCH (07:56)
[2020-01-26] MEDS: ACETAMINOPHEN 500 MG TAB PO SCH ×3 (07:57→23:51)
--- NOTE | 2020-01-26 13:43 | Hospitalist Progress Note ---
Date of Service January 26, 2020 Assessment & Plan (1) Closed right hip fracture: Mechanical fall s/p closed right hip fracture. POD#1 s/p R hip fracture repair and doing well. Cont SCDs for DVT prophy at this time pending clearance from surgeon for chemoprophylaxis. PT/OT per ortho. There are dedicated therapists to enter the COVID unit and work with him. Recommend chemoprophylaxis as soon as able as patient will be hospitalized for approx 2 weeks until he is covid negative x 2 and can return to a rehab facility. (2) COVID-19: Currently patient has no respiratory symptoms and no evidence of symptomatic disease. No oxygen requirements. No investigational treatments being offered at this time (Plaquenil, convalescent plasma). Giving ascorbic acid and zinc daily. Has adequate stores of vitamin D so no supplementation needed at this time. (3) Anxiety: Sertraline and Lorazepam per home regimen. (4) Substance abuse: Reports marijuana use last week. Prior h/o alcohol but sober for many years. (5) Dementia: Parkinson's dementia. Per [facility] Neurology. Reorient as needed. Higher risk for delirium perioperatively. (6) Parkinson disease: Sinemet. PT/OT per Ortho. (7) HTN (hypertension): BP within normal range. Restart Lisinopril per home regimen. (8) DVT prophylaxis: SCDs Full Code Dispo-prolonged hospitalization anticipated prior to being able to return to any rehab facility. Updated family by phone. Sheila Rosas DO [facility] Hospitalist Admission and Anticipated Discharge Date Admission Date: January 23, 2020 Subjective doing well reports pain is well controlled with the oxycodone he is tolerating PO denies nausea Review of Systems Review of Systems: All systems reviewed & are unremarkable except as noted in Subjective Physical Exam Physical Exam: CONSTITUTIONAL: WNWD, vitals as above, generally well- appearing, appears comfortable. EYES: normal conjunctivae, no scleral icterus ENT: external ear and nose normal, MMM NECK: trachea midline RESPIRATORY: clear to auscultation bilaterally, no crackles, rales or wheezes, normal respiratory effort CARDIOVASCULAR: regular rate and rhythm, S1 and 2 heard without murmurs, gallops or rubs, no JVD, no peripheral edema GASTROINTESTINAL: soft, nontender, nondistended MUSCULOSKELETAL: able to move left leg, but right with restrictions 2/2 recent hip surgery. R hip incision covered with dressing that is c/d/i SKIN: warm and dry NEUROLOGIC: CN 2-12 grossly intact, normal cognition, normal speech, no gross focal deficits. PSYCHIATRIC: alert cooperative and oriented to person and place and at baseline mental status. Results & Data Results & Data ([facility]) Vital Signs (Past 12 Hours) Vital Signs Temp Pulse Resp BP Pulse Ox 01/26/20 11:48 36.4 C L 94 H 18 131/91 95 01/26/20 10:27 93 01/26/20 08:02 36.6 C 93 H 16 130/80 96 Laboratory Results Short CBC 01/26/20 Range/Units 04:50 WBC 9.76 (4.8-10.8) K/uL Hgb 10.6 L (14.0-18.0) g/dL Hct 31.7 L (42-52) % Plt Count 193 (130-400) K/uL BMP 01/26/20 04:50 Sodium 142 Potassium 3.7 Chloride 108 H Carbon Dioxide 26 BUN 31 H Creatinine 0.79 Glucose 102 H Calcium 7.7 L Liver Function 01/26/20 Range/Units 04:50 Total Bilirubin 0.5 (0.2-1) mg/dl AST 15 (15-37) U/L ALT 9 L (12-78) U/L Alkaline Phosphatase 72 (45-117) U/L Albumin 2.6 L (3.4-5.0) gm/dl Urine 01/26/20 Range/Units 05:45 Urine Color Yellow Urine Appearance Clear (Clear) Urine pH 5.5 (4.5-7.5) Ur Specific [place] 1.038 H (1.000-1.030) Urine Protein 1+ H (Negative) Urine Glucose (UA) Negative (Negative) Medications Administered Current Inpatient Medications Acetaminophen (Tylenol) 650 mg PO Q6H PRN PRN Reason: MILD Pain (Scale 1,2,3) Stop: 02/22/20 15:48 Acetaminophen (Tylenol) 1,000 mg PO Q8H [facility] Stop: 02/22/20 21:59 Last Admin: 01/26/20 07:57 Dose: 1,000 mg Documented by: Ascorbic Acid (Vitamin C) 500 mg PO BID@0800,1999 [facility] Stop: 02/24/20 19:59 Last Admin: 01/26/20 07:52 Dose: 500 mg Documented by: Bisacodyl (Dulcolax) 10 mg [place] DAILY PRN PRN Reason: Constipation Stop: 02/22/20 15:48 Carbidopa/Levodopa (Sinemet 25/100 Mg) 1 tab PO TID@0800,1500,2000 [facility] Stop: 02/22/20 19:59 Last Admin: 01/26/20 07:52 Dose: 1 tab Documented by: Enoxaparin Sodium (Lovenox) 40 mg SQ Q24H [facility] Stop: 02/25/20 08:59 Last Admin: 01/26/20 07:54 Dose: 40 mg Documented by: Finasteride (Proscar) 5 mg PO QAM@0800 [facility] Stop: 02/24/20 07:59 Last Admin: 01/26/20 07:52 Dose: 5 mg Documented by: Sodium Chloride (Nss 1000ml) 1,000 mls @ 85 mls/hr IV .[id number] [facility] Stop: 02/24/20 15:59 Last Admin: 01/26/20 05:24 Dose: 85 mls/hr Documented by: Lisinopril (Zestril) 5 mg PO DAILY@0800 [facility] Stop: 02/23/20 07:59 Last Admin: 01/26/20 07:53 Dose: 5 mg Documented by: Lorazepam (Ativan) 0.5 mg PO BID@0800,2000 [facility] Stop: 02/22/20 19:59 Last Admin: 01/26/20 07:52 Dose: 0.5 mg Documented by: Magnesium Hydroxide (Milk Of Magnesia) 30 ml PO DAILY PRN PRN Reason: Constipation Stop: 02/22/20 15:48 Magnesium Oxide (Mag-Ox) 400 mg PO QAM@0800 [facility] Stop: 02/24/20 12:44 Last Admin: 01/26/20 07:56 Dose: 400 mg Documented by: Naloxone HCl (Narcan) 0.1 mg IV UD PRN PRN Reason: Opioid Overdose Stop: 02/24/20 15:43 Oxycodone HCl (Roxicodone Immediate Rel) 5 mg PO Q4H PRN PRN Reason: MODERATE Pain (Scale 4,5,6) Stop: 02/06/20 15:48 Last Admin: 01/26/20 07:52 Dose: 5 mg Documented by: Pantoprazole Sodium (Protonix) 40 mg PO QDB@0800 [facility] Stop: 02/24/20 07:59 Last Admin: 01/26/20 07:52 Dose: 40 mg Documented by: Potassium Chloride (Klor-Con M10) 10 meq PO DAILY@0800 [facility] Stop: 02/23/20 07:59 Last Admin: 01/26/20 07:51 Dose: 10 meq Documented by: Senna/Docusate Sodium (Senokot S) 1 tab PO BID@0800,1999 [facility] Stop: 02/22/20 19:59 Last Admin: 01/26/20 07:51 Dose: 1 tab Documented by: Sertraline HCl (Zoloft) 100 mg PO QAM@0800 [facility] Stop: 02/24/20 07:59 Last Admin: 01/26/20 07:52 Dose: 100 mg Documented by: Zinc Sulfate (Zinc Sulfate) 220 mg PO QAM@0800 [facility] Stop: 02/24/20 12:44 Last Admin: 01/26/20 07:53 Dose: 220 mg Documented by: (1) Closed right hip fracture Encounter type: initial encounter Qualified Code(s): S72.001A - Fracture of unspecified part of neck of right femur, initial encounter for closed fracture
--- NOTE | 2020-01-26 14:10 | Orthopedic Progress Note ---
Date of Service January 26, 2020 Assessment & Plan (1) Closed right hip fracture: Status post right hip cephalo-medullary nail -Ancef x24 -DVT prophylaxis SCDs, teds, Lovenox 40 mg daily. -Toe-touch nonweightbearing right lower extremity. -May participate in physical therapy once medically stabilized. -Postoperative x-ray demonstrates a well aligned well fixed implant, reduced fracture site with near anatomic alignment. -A.m. labs - hgb 10.6 (2) COVID-19: Admission and Anticipated Discharge Date Admission Date: January 23, 2020 Subjective Post Operative Progress Note Patient seen sitting up in bed, comfortable, denies complaints, pain well controlled, no acute issues. Review of Systems Review of Systems: All systems reviewed & are unremarkable except as noted in HPI & below Constitutional: as per Subjective / HPI Physical Exam Physical Exam: RLE NVSI +EHL/FHL/TA/GS SILT grossly, +2 DP pulse, compartments soft NT, dressing cdi. Constitutional: WD/WN, vitals as above Results & Data ([facility]) Vital Signs (Past 12 Hours) Vital Signs Temp Pulse Resp BP Pulse Ox 01/26/20 11:48 36.4 C L 94 H 18 131/91 95 01/26/20 10:27 93 01/26/20 08:02 36.6 C 93 H 16 130/80 96 (1) Closed right hip fracture Encounter type: initial encounter Qualified Code(s): S72.001A - Fracture of unspecified part of neck of right femur, initial encounter for closed fracture
[2020-01-26] MEDS ORDERED: DORZOLAMIDE/TIMOLOL 22.3/6.8MG/ML 10 ML BTL OPB SCH (20:00)
[2020-01-26] MEDS ORDERED: BRIMONIDINE TIMOLOL OPB SCH (21:00)
[2020-01-27 05:35] LABS: Hematocrit (blood only) 28.3 % (42-52); Hemoglobin 9.4 g/dL (14.0-18.0); Mean Corpuscular Hemoglobin 30.5 pg (25-34); Mean Corpuscular Hgb Conc 33.2 g/dL (32-36); Mean Corpuscular Volume 91.9 fL (80-100); Mean Platelet Volume 11.3 fL (7.4-10.4); Platelet Count 172 K/uL (130-400); RDW Standard Deviation 46.8 fL (36.4-46.3); Red Blood Count 3.08 M/uL (4.7-6.1)
[2020-01-27] MEDS: SODIUM CHLORIDE 0.9% 1000ML 1,000 ML IV SCH ×2 (05:40→17:43)
[2020-01-27] MEDS: OXYCODONE HCL IR 5 MG TAB (IMMEDIATE RELEASE) PO PRN ×2 (05:54→20:17)
[2020-01-27 06:14] LABS: BUN Creatinine Ratio 44.4 (10-20); Calcium 8.1 mg/dl (8.5-10.1); Creatinine Clr Calc Pharmacy 129.3 ml/min; Est GFR (African American) 117.2; Est GFR (Non-African American) 101.1
[2020-01-27 06:23] LABS: Ferritin 582.6 ng/ml (8-388)
[2020-01-27] MEDS: CARBIDOPA/LEVODOPA 25/100MG TAB PO SCH ×3 (08:08→20:06)
[2020-01-27] MEDS: LORazepam 0.5 MG TAB PO SCH ×2 (08:08→20:05)
[2020-01-27] MEDS: PANTOprazole 40 MG TAB PO SCH (08:08)
[2020-01-27] MEDS: ASCORBIC ACID 500 MG TAB PO SCH ×2 (08:09→20:06)
[2020-01-27] MEDS: ACETAMINOPHEN 500 MG TAB PO SCH ×2 (08:10→16:14)
[2020-01-27] MEDS: FINASTERIDE 5 MG TAB PO SCH (08:11)
[2020-01-27] MEDS: lisinopriL 5 MG TAB PO SCH ×2 (08:11→08:15)
[2020-01-27] MEDS: ZINC SULFATE 220 MG CAPSULE PO SCH (08:12)
[2020-01-27] MEDS: SERTRALINE HCL 100 MG TABLET PO SCH (08:12)
[2020-01-27] MEDS: ENOXAPARIN INJ 40 MG/0.4 ML SYR SQ SCH (08:15)
[2020-01-27] MEDS: MAGNESIUM OXIDE 400 MG TAB PO SCH (08:21)
[2020-01-27] MEDS: POTASSIUM CHLORIDE 10 MEQ TABCR PO SCH (08:21)
[2020-01-27 08:59] LABS: 7-Aminoclonaz, Confirm NEGATIVE ng/mL (<25); Hydro-Alp Ur, GC/MS NEGATIVE ng/mL (<25); Hydroxyethylflurazepam, Conf NEGATIVE ng/mL (<50); Hydroxymidazolam Ur, GC/MS NEGATIVE ng/mL (<50); Hydroxytriazolam NEGATIVE ng/mL (<50); Lorazepam, Ur GC/MS >2000 ng/mL (<50); Marijuana Quant, GCMS Urine 20 ng/mL (<5); Nordiazepam, Confirm NEGATIVE ng/mL (<50); Oxazepam Ur, GC/MS NEGATIVE ng/mL (<50); Temazepam, Confirm NEGATIVE ng/mL (<50)
[2020-01-27] MEDS: DOCUSATE SODIUM/SENNA 50/8.6MG TAB PO SCH ×2 (10:00→20:17)
--- NOTE | 2020-01-27 10:57 | Hospitalist Progress Note ---
Date of Service January 27, 2020 Assessment & Plan (1) Closed right hip fracture: Fell and suffered intertrochanteric fracture of right hip. Cephalomedullary nailing performed by Dr. Hanna on 01/24. Post op day # 2. Continue PT, OT, analgesics. (2) COVID-19: No fever, cough, SOB, hypoxia at time of admission. Tested for COVID-19 due to other cases at his personal care facility. SARS-CoV-2 PCR nasopharyngeal swab positive on 01/22. Weakness from COVID-19 may have contributed to fall and hip fracture. Low grade temp of 37.6 could be secondary to COVID-19, but could also be secondary to hip fracture. No apparent indication for treatment for COVID-19 at this time. (3) Anemia: Hgb 13.7 preop --> 9.4. Probable acute blood loss anemia secondary to hip fracture +/- hemodilution from IV fluids. No indication for transfusion at this time. Follow. (4) HTN (hypertension): Hemodynamically stable. Continue lisinopril. (5) Parkinson disease: Continue carbidopa / levodopa. (6) Dementia: Monitor for delirium. (7) DVT prophylaxis: SQ enoxaparin. Ambulate as able. (8) Discharge planning issues: Discharge disposition to be determined. Zachary Maddox given update this afternoon by phone. Admission and Anticipated Discharge Date Admission Date: January 23, 2020 Subjective Recheck for hip fracture, COVID-19, and other problems. Patient seen in their room around 1030. Having some postop pain. Low grade temp. Denies cough or SOB. Review of Systems: Constitutional- as noted above. Cardiac- no chest pain. Pulmonary- as noted above. GI- no nausea, vomiting, diarrhea, melena, hematochezia. - no urinary symptoms. Otherwise, as noted above. Physical Exam Constitutional: no acute distress Respiratory: no respiratory distress Auscultation: lungs clear to auscultation bilaterally Cardiovascular: Rate/Rhythm: regular rate and regular rhythm Heart Sounds: no gallop and no cardiac rub Vessels: no JVD Extremities: no calf tenderness and no edema Gastrointestinal (Abdomen): normal bowel sounds, soft, nontender, no hepatosplenomegaly Musculoskeletal: Extremities: no cyanosis Skin: no rashes, warm and dry Neurologic: masked facies Psychiatric: Orientation: alert (oriented to person, year, and hospital) Results & Data Results & Data ([facility]) Vital Signs (Past 12 Hours) Vital Signs Temp Pulse Resp BP Pulse Ox 01/27/20 07:26 36.8 C 93 H 16 125/75 94 01/26/20 23:06 37.6 C H 95 H 16 127/80 92 Laboratory Results Laboratory Results - last 24 hr 01/24/20 01/27/20 01/27/20 00:46 05:19 05:19 WBC 8.30 RBC 3.08 L Hgb 9.4 L Hct 28.3 L MCV 91.9 MCH 30.5 MCHC 33.2 RDW Std Deviation 46.8 H RDW Coeff of David 14.0 Plt Count 172 MPV 11.3 H ESR 52 H Sodium Potassium Chloride Carbon Dioxide Anion Gap BUN Creatinine Est Cr Clr Drug Dosing Est GFR ( Amer) Est GFR (Non-Af Amer) BUN/Creatinine Ratio Glucose Calcium Ferritin C-Reactive Protein U OH-Alprazolam Confrm NEGATIVE 7-Amino Clonazepam NEGATIVE Ur Nordiazepam Confirm NEGATIVE U OH-ethylflurazepam NEGATIVE U Lorazepam Cnf GC/MS >2000 H U Oxazepam Confm GC/MS NEGATIVE Ur Temazepam Confirm NEGATIVE U OH-Triazolam Confirm NEGATIVE U OH-Midazolam Confirm NEGATIVE U Marijuana THC Carboxy 20 H Drug Screen Comment SEE NOTE 01/27/20 05:19 WBC RBC Hgb Hct MCV MCH MCHC RDW Std Deviation RDW Coeff of David Plt Count MPV ESR Sodium 143 Potassium 4.0 Chloride 112 H Carbon Dioxide 25 Anion Gap 6.0 BUN 26 H Creatinine 0.58 L Est Cr Clr Drug Dosing 129.3 Est GFR ( Amer) 117.2 Est GFR (Non-Af Amer) 101.1 BUN/Creatinine Ratio 44.4 H Glucose 111 H Calcium 8.1 L Ferritin 582.6 H C-Reactive Protein 25.00 H U OH-Alprazolam Confrm 7-Amino Clonazepam Ur Nordiazepam Confirm U OH-ethylflurazepam U Lorazepam Cnf GC/MS U Oxazepam Confm GC/MS Ur Temazepam Confirm U OH-Triazolam Confirm U OH-Midazolam Confirm U Marijuana THC Carboxy Drug Screen Comment (1) Closed right hip fracture Encounter type: initial encounter Qualified Code(s): S72.001A - Fracture of unspecified part of neck of right femur, initial encounter for closed fracture
--- NOTE | 2020-01-27 20:38 | Orthopedic Progress Note ---
Date of Service January 27, 2020 Assessment & Plan (1) Closed right hip fracture: Status post right hip cephalo-medullary nail POD#2 -Ancef x24 -DVT prophylaxis SCDs, teds, Lovenox 40 mg daily. -Toe-touch nonweightbearing right lower extremity. -May participate in physical therapy once medically stabilized. -Postoperative x-ray demonstrates a well aligned well fixed implant, reduced fracture site with near anatomic alignment. -A.m. labs - hgb 9.4 Stable from a surgical stand point, will sign off, DC instructions in chart. Patient will need incision check and XR 10-14 days post-op. Will likely require prolonged stay in hospital due to COVID 19 and restrictions on returning to [facility]. (2) COVID-19: Admission and Anticipated Discharge Date Admission Date: January 23, 2020 Subjective Post Operative Progress Note Patient seen sitting up in bed, comfortable, denies complaints, pain well controlled, no acute issues. Review of Systems Review of Systems: All systems reviewed & are unremarkable except as noted in HPI & below Constitutional: as per Subjective / HPI Physical Exam Physical Exam: RLE NVSI +EHL/FHL SILT grossly, +2 DP pulse, compartments soft NT, dressing cdi. Constitutional: WD/WN, vitals as above Results & Data ([facility]) Vital Signs (Past 12 Hours) Vital Signs Temp Pulse Resp BP Pulse Ox 01/27/20 16:07 36.9 C 80 18 144/71 H 95 Laboratory Results 01/27/20 01/27/20 01/27/20 Range/Units 05:19 05:19 05:19 WBC 8.30 (4.8-10.8) K/uL RBC 3.08 L (4.7-6.1) M/uL Hgb 9.4 L (14.0-18.0) g/dL Hct 28.3 L (42-52) % MCV 91.9 (80-100) fL MCH 30.5 (25-34) pg MCHC 33.2 (32-36) g/dL RDW Std Deviation 46.8 H (36.4-46.3) fL RDW Coeff of David 14.0 (11.5-14.5) % Plt Count 172 (130-400) K/uL MPV 11.3 H (7.4-10.4) fL ESR 52 H (0-14) mm/hr Sodium 143 (136-145) mmol/L Potassium 4.0 (3.5-5.1) mmol/L Chloride 112 H (98-107) mmol/L Carbon Dioxide 25 (21-32) mmol/L Anion Gap 6.0 (3-11) BUN 26 H (7-18) mg/dl Creatinine 0.58 L (0.6-1.4) mg/dl Est Cr Clr Drug Dosing 129.3 ml/min Est GFR ( Amer) 117.2 Est GFR (Non-Af Amer) 101.1 BUN/Creatinine Ratio 44.4 H (10-20) Glucose 111 H (70-99) mg/dl Calcium 8.1 L (8.5-10.1) mg/dl Ferritin 582.6 H (8-388) ng/ml C-Reactive Protein 25.00 H (0-0.29) mg/dl U OH-Alprazolam Confrm (<25) ng/mL 7-Amino Clonazepam (<25) ng/mL Ur Nordiazepam Confirm (<50) ng/mL U OH-ethylflurazepam (<50) ng/mL U Lorazepam Cnf GC/MS (<50) ng/mL U Oxazepam Confm GC/MS (<50) ng/mL Ur Temazepam Confirm (<50) ng/mL U OH-Triazolam Confirm (<50) ng/mL U OH-Midazolam Confirm (<50) ng/mL U Marijuana THC Carboxy (<5) ng/mL Drug Screen Comment 01/24/20 Range/Units 00:46 WBC (4.8-10.8) K/uL RBC (4.7-6.1) M/uL Hgb (14.0-18.0) g/dL Hct (42-52) % MCV (80-100) fL MCH (25-34) pg MCHC (32-36) g/dL RDW Std Deviation (36.4-46.3) fL RDW Coeff of David (11.5-14.5) % Plt Count (130-400) K/uL MPV (7.4-10.4) fL ESR (0-14) mm/hr Sodium (136-145) mmol/L Potassium (3.5-5.1) mmol/L Chloride (98-107) mmol/L Carbon Dioxide (21-32) mmol/L Anion Gap (3-11) BUN (7-18) mg/dl Creatinine (0.6-1.4) mg/dl Est Cr Clr Drug Dosing ml/min Est GFR ( Amer) Est GFR (Non-Af Amer) BUN/Creatinine Ratio (10-20) Glucose (70-99) mg/dl Calcium (8.5-10.1) mg/dl Ferritin (8-388) ng/ml C-Reactive Protein (0-0.29) mg/dl U OH-Alprazolam Confrm NEGATIVE (<25) ng/mL 7-Amino Clonazepam NEGATIVE (<25) ng/mL Ur Nordiazepam Confirm NEGATIVE (<50) ng/mL U OH-ethylflurazepam NEGATIVE (<50) ng/mL U Lorazepam Cnf GC/MS >2000 H (<50) ng/mL U Oxazepam Confm GC/MS NEGATIVE (<50) ng/mL Ur Temazepam Confirm NEGATIVE (<50) ng/mL U OH-Triazolam Confirm NEGATIVE (<50) ng/mL U OH-Midazolam Confirm NEGATIVE (<50) ng/mL U Marijuana THC Carboxy 20 H (<5) ng/mL Drug Screen Comment SEE NOTE (1) Closed right hip fracture Encounter type: initial encounter Qualified Code(s): S72.001A - Fracture of unspecified part of neck of right femur, initial encounter for closed fracture
[2020-01-28] MEDS: ACETAMINOPHEN 500 MG TAB PO SCH ×3 (00:02→16:07)
[2020-01-28 05:55] LABS: Basophils # (auto) 0.01 K/uL (0-0.2); Basophils % (auto) 0.2 %; Eosinophils # (auto) 0.04 K/uL (0-0.5); Eosinophils % (auto) 0.6 %; Hematocrit (blood only) 25.3 % (42-52); Hemoglobin 8.3 g/dL (14.0-18.0); Immature Granulocytes # (auto) 0.02 K/uL (0.00-0.02); Immature Granulocytes % (auto) 0.3 %; Lymphocytes # (auto) 0.73 K/uL (1.2-3.4); Lymphocytes % (auto) 11.1 %; Mean Corpuscular Hemoglobin 30.2 pg (25-34); Mean Corpuscular Hgb Conc 32.8 g/dL (32-36); Mean Platelet Volume 9.7 fL (7.4-10.4); Monocytes # (auto) 0.62 K/uL (0.11-0.59); Monocytes % (auto) 9.4 %; Neutrophils # (auto) 5.16 K/uL (1.4-6.5); Neutrophils % (auto) 78.4 %; Platelet Count 200 K/uL (130-400); RDW Standard Deviation 47.2 fL (36.4-46.3); Red Blood Count 2.75 M/uL (4.7-6.1); White Blood Count 6.58 K/uL (4.8-10.8)
[2020-01-28 06:20] LABS: Calcium 7.9 mg/dl (8.5-10.1); Creatinine Clr Calc Pharmacy 159.6 ml/min; Est GFR (African American) 127.8; Est GFR (Non-African American) 110.3; Potassium 3.9 mmol/L (3.5-5.1)
[2020-01-28] MEDS: LORazepam 0.5 MG TAB PO SCH ×2 (08:36→20:32)
[2020-01-28] MEDS: CARBIDOPA/LEVODOPA 25/100MG TAB PO SCH ×3 (08:36→20:32)
[2020-01-28] MEDS: lisinopriL 5 MG TAB PO SCH ×2 (08:36→08:39)
[2020-01-28] MEDS: SERTRALINE HCL 100 MG TABLET PO SCH (08:37)
[2020-01-28] MEDS: FINASTERIDE 5 MG TAB PO SCH (08:37)
[2020-01-28] MEDS: ASCORBIC ACID 500 MG TAB PO SCH ×2 (08:37→20:32)
[2020-01-28] MEDS: PANTOprazole 40 MG TAB PO SCH (08:37)
[2020-01-28] MEDS: ZINC SULFATE 220 MG CAPSULE PO SCH (08:38)
[2020-01-28] MEDS: ENOXAPARIN INJ 40 MG/0.4 ML SYR SQ SCH (08:39)
[2020-01-28] MEDS: POTASSIUM CHLORIDE 10 MEQ TABCR PO SCH (09:08)
[2020-01-28] MEDS: DOCUSATE SODIUM/SENNA 50/8.6MG TAB PO SCH ×2 (09:09→20:44)
[2020-01-28] MEDS: MAGNESIUM OXIDE 400 MG TAB PO SCH (09:09)
--- NOTE | 2020-01-28 10:36 | Hospitalist Progress Note ---
Date of Service January 28, 2020 Assessment & Plan (1) Closed right hip fracture: Fell and suffered intertrochanteric fracture of right hip. Cephalomedullary nailing performed by Dr. Hanna on 01/24. Post op day # 3. Continue PT, OT, analgesics. (2) COVID-19: No fever, cough, SOB, hypoxia at time of admission. Tested for COVID-19 due to other cases at his personal care facility. SARS-CoV-2 PCR nasopharyngeal swab positive on 01/22. Weakness from COVID-19 may have contributed to fall and hip fracture. Low grade temp of 37.6 01/26- could be secondary to COVID-19, but could also be secondary to hip fracture. No apparent indication for treatment for COVID-19 at this time. (3) Anemia: Hgb 13.7 preop --> 9.4 --> 8.3.. Probable acute blood loss anemia secondary to hip fracture +/- hemodilution from IV fluids. No gross GI bleeding. No indication for transfusion at this time. Follow. (4) HTN (hypertension): Hemodynamically stable. Continue lisinopril. (5) Parkinson disease: Continue carbidopa / levodopa. (6) Dementia: Monitor for delirium. (7) DVT prophylaxis: SQ enoxaparin. Ambulate as able. (8) Discharge planning issues: Discharge disposition to be determined. Check repeat SARS-CoV-2 PCR to assist with discharge planning. Admission and Anticipated Discharge Date Admission Date: January 23, 2020 Subjective Recheck for hip fracture, COVID-19, and other problems. Patient seen in their room around 1025. Still having some postop pain. No fever. Occasional cough. Denies SOB. Review of Systems: Constitutional- as noted above. Cardiac- no chest pain. Pulmonary- as noted above. GI- no nausea, vomiting, diarrhea, melena, hematochezia. - no dysuria. Otherwise, as noted above. Physical Exam Constitutional: no acute distress Respiratory: no respiratory distress Auscultation: + wheezes Cardiovascular: Rate/Rhythm: regular rate and regular rhythm Heart Sounds: no gallop and no cardiac rub Vessels: no JVD Extremities: no calf tenderness and no edema Gastrointestinal (Abdomen): normal bowel sounds, soft, nontender, no hepatosplenomegaly Musculoskeletal: Extremities: no cyanosis Skin: no rashes, warm and dry Neurologic: cogwheel rigidity upper extremities Psychiatric: Orientation: + not alert (somnolent) and + not oriented x 3 Results & Data Results & Data ([facility]) Vital Signs (Past 12 Hours) Vital Signs Temp Pulse Resp BP Pulse Ox 01/28/20 07:52 37.0 C 85 18 147/76 H 95 01/27/20 23:59 37.0 C 80 18 134/71 94 Laboratory Results Laboratory Results - last 24 hr 01/28/20 01/28/20 01/28/20 05:29 05:29 09:10 WBC 6.58 RBC 2.75 L Hgb 8.3 L Hct 25.3 L MCV 92.0 MCH 30.2 MCHC 32.8 RDW Std Deviation 47.2 H RDW Coeff of David 14.0 Plt Count 200 MPV 9.7 Immature Gran % (Auto) 0.3 Neut % (Auto) 78.4 Lymph % (Auto) 11.1 [place] % (Auto) 9.4 Eos % (Auto) 0.6 Baso % (Auto) 0.2 Immature Gran # (Auto) 0.02 Neut # (Auto) 5.16 Lymph # (Auto) 0.73 L [place] # (Auto) 0.62 H Eos # (Auto) 0.04 Baso # (Auto) 0.01 Sodium 143 Potassium 3.9 Chloride 111 H Carbon Dioxide 27 Anion Gap 5.0 BUN 21 H Creatinine 0.47 L Est Cr Clr Drug Dosing 159.6 Est GFR ( Amer) 127.8 Est GFR (Non-Af Amer) 110.3 BUN/Creatinine Ratio 44.0 H Glucose 99 Calcium 7.9 L SARS-CoV-2 RNA (RT-PCR) Cancelled Ref Lab Test Result 01/28/20 09:10 WBC RBC Hgb Hct MCV MCH MCHC RDW Std Deviation RDW Coeff of David Plt Count MPV Immature Gran % (Auto) Neut % (Auto) Lymph % (Auto) [place] % (Auto) Eos % (Auto) Baso % (Auto) Immature Gran # (Auto) Neut # (Auto) Lymph # (Auto) [place] # (Auto) Eos # (Auto) Baso # (Auto) Sodium Potassium Chloride Carbon Dioxide Anion Gap BUN Creatinine Est Cr Clr Drug Dosing Est GFR ( Amer) Est GFR (Non-Af Amer) BUN/Creatinine Ratio Glucose Calcium SARS-CoV-2 RNA (RT-PCR) Ref Lab Test Result Pending (1) Closed right hip fracture Encounter type: initial encounter Qualified Code(s): S72.001A - Fracture of unspecified part of neck of right femur, initial encounter for closed fracture
--- NOTE | 2020-01-28 11:34 | XRay Report ---
XR chest 1V portable HISTORY: 74 years-old Male COVID-19, cough acute cough COMPARISON: Chest radiograph 01/23/2020 TECHNIQUE: Portable AP view of the chest FINDINGS: Cardiac silhouette is enlarged. Calcified plaque the thoracic aortic arch. This patient is slightly r otated towards the left. Trace left pleural effusion with slightly worsened left lung base opacities. Linear right lung base densities suggest atelectasis. Chronic left-sided rib fractures. Degenerative changes of the shoulders and spine. IMPRESSION: Trace left pleural effusion with mildly worsened left lung base opacities. ACT 112: Negative or not required by law. The above report was generated using voice recognition software. It may contain grammatical, syntax o r spelling errors. Electronically signed by: Yuniel Jung M.D. 01/28/2020 11:32 AM
[2020-01-29] MEDS: ACETAMINOPHEN 500 MG TAB PO SCH ×3 (00:22→16:11)
[2020-01-29 07:11] LABS: Basophils # (auto) 0.01 K/uL (0-0.2); Basophils % (auto) 0.2 %; Eosinophils # (auto) 0.06 K/uL (0-0.5); Hematocrit (blood only) 26.6 % (42-52); Hemoglobin 8.7 g/dL (14.0-18.0); Immature Granulocytes # (auto) 0.02 K/uL (0.00-0.02); Immature Granulocytes % (auto) 0.3 %; Lymphocytes # (auto) 0.82 K/uL (1.2-3.4); Lymphocytes % (auto) 13.1 %; Mean Corpuscular Hemoglobin 29.6 pg (25-34); Mean Corpuscular Hgb Conc 32.7 g/dL (32-36); Mean Corpuscular Volume 90.5 fL (80-100); Mean Platelet Volume 9.4 fL (7.4-10.4); Monocytes # (auto) 0.52 K/uL (0.11-0.59); Monocytes % (auto) 8.3 %; Neutrophils # (auto) 4.82 K/uL (1.4-6.5); Neutrophils % (auto) 77.1 %; Platelet Count 253 K/uL (130-400); RDW Coefficient of Variation 13.6 % (11.5-14.5); Red Blood Count 2.94 M/uL (4.7-6.1); White Blood Count 6.25 K/uL (4.8-10.8)
[2020-01-29 07:38] LABS: BUN Creatinine Ratio 38.1 (10-20); Calcium 8.4 mg/dl (8.5-10.1); Creatinine Clr Calc Pharmacy 159.6 ml/min; Est GFR (African American) 127.8; Est GFR (Non-African American) 110.3; Potassium 3.9 mmol/L (3.5-5.1)
[2020-01-29] MEDS: PANTOprazole 40 MG TAB PO SCH (07:45)
[2020-01-29] MEDS: FINASTERIDE 5 MG TAB PO SCH (07:46)
[2020-01-29] MEDS: lisinopriL 5 MG TAB PO SCH (07:46)
[2020-01-29] MEDS: CARBIDOPA/LEVODOPA 25/100MG TAB PO SCH ×3 (07:47→19:33)
[2020-01-29] MEDS: ZINC SULFATE 220 MG CAPSULE PO SCH (07:47)
[2020-01-29] MEDS: SERTRALINE HCL 100 MG TABLET PO SCH (07:47)
[2020-01-29] MEDS: ASCORBIC ACID 500 MG TAB PO SCH ×2 (07:48→19:34)
[2020-01-29] MEDS: LORazepam 0.5 MG TAB PO SCH ×2 (07:57→19:31)
[2020-01-29] MEDS: POTASSIUM CHLORIDE 10 MEQ TABCR PO SCH (07:57)
[2020-01-29] MEDS: DOCUSATE SODIUM/SENNA 50/8.6MG TAB PO SCH ×2 (07:58→19:41)
[2020-01-29] MEDS: MAGNESIUM OXIDE 400 MG TAB PO SCH (07:58)
[2020-01-29] MEDS: ENOXAPARIN INJ 40 MG/0.4 ML SYR SQ SCH (07:59)
--- NOTE | 2020-01-29 17:02 | Hospitalist Progress Note ---
Date of Service January 29, 2020 Assessment & Plan (1) Closed right hip fracture: Fell and suffered intertrochanteric fracture of right hip. Cephalomedullary nailing performed by Dr. Hanna on 01/24. Post op day # 4. Toe-touch nonweightbearing right lower extremity. Continue PT, OT, analgesics. (2) COVID-19: No fever, cough, SOB, hypoxia at time of admission. Tested for COVID-19 due to other cases at his personal care facility. SARS-CoV-2 PCR nasopharyngeal swab positive on 01/22. Weakness from COVID-19 may have contributed to fall and hip fracture. Low grade temp of 37.6 01/26- could have been secondary to COVID-19, but could also be secondary to hip fracture. No apparent indication for treatment for COVID-19 at this time. Repeat SARS-CoV-2 PCR done 01/27 for discharge planning purposes- still positive. Repeat SARS-CoV-2 PCR 01/29. (3) Anemia: Hgb 13.7 preop --> 9.4 --> 8.3. Probable acute blood loss anemia secondary to hip fracture +/- hemodilution from IV fluids. No gross GI bleeding. Hgb today = 8.7. No indication for transfusion at this time. Follow. (4) HTN (hypertension): Hemodynamically stable. Continue lisinopril. (5) Parkinson disease: Continue carbidopa / levodopa. (6) Dementia: Monitor for delirium. (7) DVT prophylaxis: SQ enoxaparin. Ambulate as able. (8) Discharge planning issues: Discharge disposition to be determined- possibilities include return to [facility] with PT/OT vs transfer to skilled care or inpt rehab. Check serial SARS-CoV-2 PCR's until negative x 2 to assist with discharge planning. Ortho follow-up with Dr. Hanna for incision check and x-ray 10-14 days postop. Medical follow-up with Dr. Gutierrez. Zachary Maddox given update by phone this evening. Admission and Anticipated Discharge Date Admission Date: January 23, 2020 Subjective Recheck for hip fracture, COVID-19, and other problems. Patient seen in their room around 1510. More alert and interactive. Less postop pain. Able to participate more with PT & OT today. No fever. Occasional cough. Denies SOB. Review of Systems: Constitutional- as noted above. Cardiac- no chest pain. Pulmonary- as noted above. GI- no nausea, vomiting, diarrhea, melena, hematochezia. - no dysuria. Otherwise, as noted above. Physical Exam Constitutional: no acute distress Respiratory: no respiratory distress Auscultation: lungs clear to auscultation bilaterally Cardiovascular: Rate/Rhythm: regular rate and regular rhythm Heart Sounds: no gallop and no cardiac rub Vessels: no JVD Extremities: no calf tenderness and no edema Gastrointestinal (Abdomen): normal bowel sounds, soft, nontender, no hepatosplenomegaly Musculoskeletal: Extremities: no cyanosis Skin: no rashes, warm and dry Psychiatric: Orientation: alert (somnolent); + not oriented x 3 (less confused) Results & Data Results & Data ([facility]) Vital Signs (Past 12 Hours) Vital Signs Temp Pulse Resp BP Pulse Ox 01/29/20 16:00 37 C 85 20 151/80 H 97 01/29/20 07:38 36.7 C 90 18 169/97 H 93 (1) Closed right hip fracture Encounter type: initial encounter Qualified Code(s): S72.001A - Fracture of unspecified part of neck of right femur, initial encounter for closed fracture
[2020-01-29] MEDS: OXYCODONE HCL IR 5 MG TAB (IMMEDIATE RELEASE) PO PRN (19:31)
[2020-01-30] MEDS: ACETAMINOPHEN 500 MG TAB PO SCH ×3 (00:01→15:44)
[2020-01-30 06:33] LABS: Basophils # (auto) 0.01 K/uL (0-0.2); Basophils % (auto) 0.2 %; Eosinophils # (auto) 0.06 K/uL (0-0.5); Hemoglobin 8.4 g/dL (14.0-18.0); Immature Granulocytes # (auto) 0.03 K/uL (0.00-0.02); Immature Granulocytes % (auto) 0.5 %; Lymphocytes # (auto) 0.87 K/uL (1.2-3.4); Lymphocytes % (auto) 15.2 %; Mean Corpuscular Hemoglobin 30.3 pg (25-34); Mean Corpuscular Hgb Conc 33.6 g/dL (32-36); Mean Corpuscular Volume 90.3 fL (80-100); Mean Platelet Volume 9.4 fL (7.4-10.4); Monocytes # (auto) 0.57 K/uL (0.11-0.59); Neutrophils # (auto) 4.18 K/uL (1.4-6.5); Neutrophils % (auto) 73.1 %; Platelet Count 286 K/uL (130-400); RDW Coefficient of Variation 13.7 % (11.5-14.5); RDW Standard Deviation 45.3 fL (36.4-46.3); Red Blood Count 2.77 M/uL (4.7-6.1); White Blood Count 5.72 K/uL (4.8-10.8)
[2020-01-30 07:04] LABS: BUN Creatinine Ratio 36.1 (10-20); Calcium 8.1 mg/dl (8.5-10.1); Creatinine Clr Calc Pharmacy 144.2 ml/min; Est GFR (African American) 122.6; Est GFR (Non-African American) 105.8; Potassium 3.7 mmol/L (3.5-5.1)
[2020-01-30 07:09] LABS: C Reactive Protein 15.8 mg/dl (0-0.29); Ferritin 596.3 ng/ml (8-388)
[2020-01-30] MEDS: SERTRALINE HCL 100 MG TABLET PO SCH (08:02)
[2020-01-30] MEDS: CARBIDOPA/LEVODOPA 25/100MG TAB PO SCH ×3 (08:03→20:53)
[2020-01-30] MEDS: ZINC SULFATE 220 MG CAPSULE PO SCH (08:03)
[2020-01-30] MEDS: FINASTERIDE 5 MG TAB PO SCH (08:03)
[2020-01-30] MEDS: lisinopriL 5 MG TAB PO SCH (08:03)
[2020-01-30] MEDS: PANTOprazole 40 MG TAB PO SCH (08:03)
[2020-01-30] MEDS: ASCORBIC ACID 500 MG TAB PO SCH ×2 (08:07→20:53)
[2020-01-30] MEDS: MAGNESIUM OXIDE 400 MG TAB PO SCH (08:07)
[2020-01-30] MEDS: DOCUSATE SODIUM/SENNA 50/8.6MG TAB PO SCH ×2 (08:07→20:56)
[2020-01-30] MEDS: POTASSIUM CHLORIDE 10 MEQ TABCR PO SCH (08:07)
[2020-01-30] MEDS: ENOXAPARIN INJ 40 MG/0.4 ML SYR SQ SCH (08:09)
[2020-01-30] MEDS: LORazepam 0.5 MG TAB PO SCH ×2 (08:09→20:51)
[2020-01-30] MEDS: MAGNESIUM HYDROXIDE SUSP 30 ML UDC PO PRN (15:12)
--- NOTE | 2020-01-30 22:11 | Hospitalist Progress Note ---
Date of Service January 30, 2020 Assessment & Plan (1) Closed right hip fracture: Fell and suffered intertrochanteric fracture of right hip. Cephalomedullary nailing performed by Dr. Hanna on 01/24. Post op day # 5. Toe-touch nonweightbearing right lower extremity. Continue PT, OT, analgesics. (2) COVID-19: No fever, cough, SOB, hypoxia at time of admission. Tested for COVID-19 due to other cases at his personal care facility. SARS-CoV-2 PCR nasopharyngeal swab positive on 01/22. Weakness from COVID-19 may have contributed to fall and hip fracture. Low grade temp of 37.6 01/26- could have been secondary to COVID-19, but could also be secondary to hip fracture. No apparent indication for treatment for COVID-19 at this time. COVID-19 labs: lymphs 750 --> --> 870 ferritin 582 --> 596 CRP 25 --> 15.8 LDH 207 Repeat SARS-CoV-2 PCR done 01/27 for discharge planning purposes- still positive. Repeat SARS-CoV-2 PCR today. (3) Anemia: Hgb 13.7 preop --> 9.4 --> 8.3. Probable acute blood loss anemia secondary to hip fracture +/- hemodilution from IV fluids. No gross GI bleeding. Hgb today = 8.4. No indication for transfusion at this time. Follow. (4) HTN (hypertension): Hemodynamically stable. Continue lisinopril. (5) Parkinson disease: Continue carbidopa / levodopa. (6) Dementia: Monitor for delirium. (7) DVT prophylaxis: SQ enoxaparin. Ambulate as able. (8) Discharge planning issues: Discharge disposition to be determined- possibilities include return to [facility] with PT/OT vs transfer to skilled care or inpt rehab. Check serial SARS-CoV-2 PCR's until negative x 2 to assist with discharge planning. Ortho follow-up with Dr. Hanna for incision check and x-ray 10-14 days postop. Medical follow-up with Dr. Gutierrez. Zachary Maddox given update by phone this afternoon. Admission and Anticipated Discharge Date Admission Date: January 23, 2020 Subjective Recheck for hip fracture, COVID-19, and other problems. Patient seen in their room around 1520. Alert and interactive. Less postop pain. No fever. Occasional cough. Denies SOB. Constipated. Having some urinary incontinence- has been a problem in the past. Review of Systems: Constitutional- as noted above. Cardiac- no chest pain. Pulmonary- as noted above. GI- contipated; no nausea, vomiting, diarrhea, melena, hematochezia. - no dysuria. Otherwise, as noted above. Physical Exam Constitutional: no acute distress Respiratory: no respiratory distress Auscultation: lungs clear to auscultation bilaterally Cardiovascular: Rate/Rhythm: regular rate and regular rhythm Heart Sounds: no gallop and no cardiac rub Vessels: no JVD Extremities: no calf tenderness and no edema Gastrointestinal (Abdomen): normal bowel sounds, soft, nontender, no hepatosplenomegaly Musculoskeletal: Extremities: + extremities abnormal to inspection (right hip bandaged) and no cyanosis Skin: no rashes, warm and dry Psychiatric: Orientation: alert; + not oriented x 3 (less confused) Results & Data Results & Data ([facility]) Vital Signs (Past 12 Hours) Vital Signs Temp Pulse Resp BP Pulse Ox 01/30/20 16:00 36.9 C 91 H 18 135/81 94 Laboratory Results Laboratory Results - last 24 hr 01/30/20 01/30/20 01/30/20 06:22 06:22 06:22 WBC 5.72 RBC 2.77 L Hgb 8.4 L Hct 25.0 L MCV 90.3 MCH 30.3 MCHC 33.6 RDW Std Deviation 45.3 RDW Coeff of David 13.7 Plt Count 286 MPV 9.4 Immature Gran % (Auto) 0.5 Neut % (Auto) 73.1 Lymph % (Auto) 15.2 [place] % (Auto) 10.0 Eos % (Auto) 1.0 Baso % (Auto) 0.2 Immature Gran # (Auto) 0.03 H Neut # (Auto) 4.18 Lymph # (Auto) 0.87 L [place] # (Auto) 0.57 Eos # (Auto) 0.06 Baso # (Auto) 0.01 Sodium 140 Potassium 3.7 Chloride 108 H Carbon Dioxide 28 Anion Gap 4.0 BUN 19 H Creatinine 0.52 L Est Cr Clr Drug Dosing 144.2 Est GFR ( Amer) 122.6 Est GFR (Non-Af Amer) 105.8 BUN/Creatinine Ratio 36.1 H Glucose 92 Calcium 8.1 L Ferritin 596.3 H Lactate Dehydrogenase 207 C-Reactive Protein 15.80 H SARS-CoV-2 RNA (RT-PCR) 01/30/20 11:00 WBC RBC Hgb Hct MCV MCH MCHC RDW Std Deviation RDW Coeff of David Plt Count MPV Immature Gran % (Auto) Neut % (Auto) Lymph % (Auto) [place] % (Auto) Eos % (Auto) Baso % (Auto) Immature Gran # (Auto) Neut # (Auto) Lymph # (Auto) [place] # (Auto) Eos # (Auto) Baso # (Auto) Sodium Potassium Chloride Carbon Dioxide Anion Gap BUN Creatinine Est Cr Clr Drug Dosing Est GFR ( Amer) Est GFR (Non-Af Amer) BUN/Creatinine Ratio Glucose Calcium Ferritin Lactate Dehydrogenase C-Reactive Protein SARS-CoV-2 RNA (RT-PCR) Pending (1) Closed right hip fracture Encounter type: initial encounter Qualified Code(s): S72.001A - Fracture of unspecified part of neck of right femur, initial encounter for closed fracture
[2020-01-30] MEDS ORDERED: POLYETHYLENE (MIRALAX) 17 GM PACK PO PRN (22:47)
[2020-01-31] MEDS: ACETAMINOPHEN 500 MG TAB PO SCH ×3 (00:21→16:07)
[2020-01-31 01:30] LABS: Appearance Urine Clear (Clear); Bilirubin Urine Negative (Negative); Blood Urine Negative (Negative); Color Urine Yellow; Glucose Urine UA Negative (Negative); Ketones Urine Negative (Negative); Leukocyte Esterase Urine Negative (Negative); Nitrite Urine Negative (Negative); Protein Urine Negative (Negative); Specific Gravity Urine 1.015 (1.000-1.030); Urobilinogen Urine Negative (Negative); pH Urine 8.5 (4.5-7.5)
[2020-01-31] MEDS: ZINC SULFATE 220 MG CAPSULE PO SCH (08:20)
[2020-01-31] MEDS: FINASTERIDE 5 MG TAB PO SCH (08:20)
[2020-01-31] MEDS: SERTRALINE HCL 100 MG TABLET PO SCH (08:20)
[2020-01-31] MEDS: lisinopriL 5 MG TAB PO SCH (08:20)
[2020-01-31] MEDS: CARBIDOPA/LEVODOPA 25/100MG TAB PO SCH ×3 (08:21→21:00)
[2020-01-31] MEDS: ENOXAPARIN INJ 40 MG/0.4 ML SYR SQ SCH (08:21)
[2020-01-31] MEDS: PANTOprazole 40 MG TAB PO SCH (08:21)
[2020-01-31] MEDS: ASCORBIC ACID 500 MG TAB PO SCH ×2 (08:21→21:00)
[2020-01-31] MEDS: POTASSIUM CHLORIDE 10 MEQ TABCR PO SCH (08:28)
[2020-01-31] MEDS: DOCUSATE SODIUM/SENNA 50/8.6MG TAB PO SCH ×2 (08:28→21:03)
[2020-01-31] MEDS: LORazepam 0.5 MG TAB PO SCH ×2 (08:28→21:00)
[2020-01-31] MEDS: MAGNESIUM OXIDE 400 MG TAB PO SCH (08:28)
[2020-01-31 10:06] LABS: Basophils # (auto) 0.01 K/uL (0-0.2); Basophils % (auto) 0.1 %; Eosinophils # (auto) 0.08 K/uL (0-0.5); Hematocrit (blood only) 27.2 % (42-52); Hemoglobin 8.8 g/dL (14.0-18.0); Immature Granulocytes # (auto) 0.05 K/uL (0.00-0.02); Immature Granulocytes % (auto) 0.6 %; Lymphocytes # (auto) 0.72 K/uL (1.2-3.4); Lymphocytes % (auto) 9.3 %; Mean Corpuscular Hemoglobin 29.2 pg (25-34); Mean Corpuscular Hgb Conc 32.4 g/dL (32-36); Mean Corpuscular Volume 90.4 fL (80-100); Monocytes # (auto) 0.65 K/uL (0.11-0.59); Monocytes % (auto) 8.4 %; Neutrophils # (auto) 6.22 K/uL (1.4-6.5); Neutrophils % (auto) 80.6 %; Platelet Count 328 K/uL (130-400); RDW Coefficient of Variation 13.8 % (11.5-14.5); RDW Standard Deviation 45.3 fL (36.4-46.3); Red Blood Count 3.01 M/uL (4.7-6.1); White Blood Count 7.73 K/uL (4.8-10.8)
[2020-01-31 10:22] LABS: BUN Creatinine Ratio 25.9 (10-20); Calcium 8.5 mg/dl (8.5-10.1); Creatinine Clr Calc Pharmacy 136.4 ml/min; Est GFR (African American) 119.8; Est GFR (Non-African American) 103.4; Potassium 4.1 mmol/L (3.5-5.1)
[2020-01-31] MEDS ORDERED: GLYCERIN ADULT 12 SUPP/BOX SUPP PR PRN (13:59)
[2020-01-31] MEDS ORDERED: GLYCERIN ADULT 12 SUPP/BOX SUPP PR ONE (13:59)
--- NOTE | 2020-01-31 17:51 | Hospitalist Progress Note ---
Date of Service January 31, 2020 Assessment & Plan (1) Closed right hip fracture: Fell and suffered intertrochanteric fracture of right hip. Cephalomedullary nailing performed by Dr. Hanna on 01/24. Post op day # 6. Toe-touch nonweightbearing right lower extremity. Continue PT, OT, analgesics. (2) COVID-19: No fever, cough, SOB, hypoxia at time of admission. Tested for COVID-19 due to other cases at his personal care facility. SARS-CoV-2 PCR nasopharyngeal swab positive on 01/22. Weakness from COVID-19 may have contributed to fall and hip fracture. Low grade temp of 37.6 01/26- could have been secondary to COVID-19, but could also be secondary to hip fracture. No apparent indication for treatment for COVID-19 at this time. COVID-19 labs: PCR + 01/22, + 01/27 lymphocytes 750 --> --> 720 D-dimer ESR 52 ferritin 582 --> 596 CRP 25 --> 15.8 LDH 207 Repeat SARS-CoV-2 PCR 01/29 pending.. (3) Anemia: Hgb 13.7 preop --> 9.4 --> 8.3. Probable acute blood loss anemia secondary to hip fracture +/- hemodilution from IV fluids. No gross GI bleeding. Hgb today = 8.8. No indication for transfusion at this time. Follow. (4) HTN (hypertension): Hemodynamically stable. Continue lisinopril. (5) Parkinson disease: Continue carbidopa / levodopa. (6) Dementia: Monitor for delirium. (7) Constipation: Last documented BM 01/24. No narcotic analgesics since 01/28. No on Fe. Receiving Senokot-S. Has MOM and MiraLax PRN. Try glycerin suppository. (8) DVT prophylaxis: SQ enoxaparin. Ambulate as able. (9) Discharge planning issues: Discharge disposition to be determined- possibilities include return to [facility] with PT/OT vs transfer to skilled care or inpt rehab. Check serial SARS-CoV-2 PCR's until negative x 2 to assist with discharge planning. Ortho follow-up with Dr. Hanna for incision check and x-ray 10-14 days postop. Medical follow-up with Dr. Gutierrez. Zachary Maddox given update by phone this evening. Admission and Anticipated Discharge Date Admission Date: January 23, 2020 Subjective Recheck for hip fracture, COVID-19, and other problems. Patient seen in their room around 1300. No fever. Occasional cough. Denies SOB. Constipated. Urinary incontinence. Postvoid residual by ultrasound 198 ml. Less postop pain. Review of Systems: Constitutional- as noted above. Cardiac- no chest pain. Pulmonary- as noted above. GI- constipated; no nausea, vomiting, diarrhea, melena, hematochezia. - urinary incontinencd, no dysuria. Otherwise, as noted above. Physical Exam Constitutional: no acute distress Respiratory: no respiratory distress Auscultation: lungs clear to auscultation bilaterally Cardiovascular: Rate/Rhythm: regular rate and regular rhythm Heart Sounds: no gallop and no cardiac rub Vessels: no JVD Extremities: no calf tenderness and no edema Gastrointestinal (Abdomen): normal bowel sounds, soft, nontender, no hepatosplenomegaly Musculoskeletal: Extremities: + extremities abnormal to inspection (right hip bandaged) and no cyanosis Skin: no rashes, warm and dry Psychiatric: Orientation: alert; + not oriented x 3 (some confusion) Results & Data Results & Data ([facility]) Vital Signs (Past 12 Hours) Vital Signs Temp Pulse Pulse Resp BP Pulse Ox 01/31/20 16:10 36.9 C 76 18 126/61 97 01/31/20 08:20 37.1 C 76 18 149/83 H 95 Laboratory Results Laboratory Results - last 24 hr 01/31/20 01/31/20 01/31/20 01:20 09:45 09:45 WBC 7.73 RBC 3.01 L Hgb 8.8 L Hct 27.2 L MCV 90.4 MCH 29.2 MCHC 32.4 RDW Std Deviation 45.3 RDW Coeff of David 13.8 Plt Count 328 MPV 9.0 Immature Gran % (Auto) 0.6 Neut % (Auto) 80.6 Lymph % (Auto) 9.3 [place] % (Auto) 8.4 Eos % (Auto) 1.0 Baso % (Auto) 0.1 Immature Gran # (Auto) 0.05 H Neut # (Auto) 6.22 Lymph # (Auto) 0.72 L [place] # (Auto) 0.65 H Eos # (Auto) 0.08 Baso # (Auto) 0.01 Sodium 138 Potassium 4.1 Chloride 107 Carbon Dioxide 25 Anion Gap 6.0 BUN 14 Creatinine 0.55 L Est Cr Clr Drug Dosing 136.4 Est GFR ( Amer) 119.8 Est GFR (Non-Af Amer) 103.4 BUN/Creatinine Ratio 25.9 H Glucose 115 H Calcium 8.5 Urine Color Yellow Urine Appearance Clear Urine pH 8.5 H Ur Specific [place] 1.015 Urine Protein Negative Urine Glucose (UA) Negative Urine Ketones Negative Urine Blood Negative Urine Nitrite Negative Urine Bilirubin Negative Urine Urobilinogen Negative Ur Leukocyte Esterase Negative (1) Closed right hip fracture Encounter type: initial encounter Qualified Code(s): S72.001A - Fracture of unspecified part of neck of right femur, initial encounter for closed fracture
[2020-02-01] MEDS: ACETAMINOPHEN 500 MG TAB PO SCH ×4 (00:26→23:21)
[2020-02-01 07:11] LABS: Basophils # (auto) 0.01 K/uL (0-0.2); Basophils % (auto) 0.1 %; Eosinophils % (auto) 1.4 %; Hematocrit (blood only) 27.9 % (42-52); Hemoglobin 9.2 g/dL (14.0-18.0); Immature Granulocytes # (auto) 0.11 K/uL (0.00-0.02); Immature Granulocytes % (auto) 1.6 %; Lymphocytes # (auto) 0.99 K/uL (1.2-3.4); Mean Corpuscular Hemoglobin 30.1 pg (25-34); Mean Corpuscular Volume 91.2 fL (80-100); Mean Platelet Volume 8.9 fL (7.4-10.4); Monocytes # (auto) 0.65 K/uL (0.11-0.59); Monocytes % (auto) 9.2 %; Neutrophils # (auto) 5.19 K/uL (1.4-6.5); Neutrophils % (auto) 73.7 %; Nucleated RBC # (auto) 0.03 K/uL (0-0); Nucleated RBC % (auto) 0.4 %; Platelet Count 354 K/uL (130-400); RDW Coefficient of Variation 13.8 % (11.5-14.5); RDW Standard Deviation 45.5 fL (36.4-46.3); Red Blood Count 3.06 M/uL (4.7-6.1); White Blood Count 7.05 K/uL (4.8-10.8)
[2020-02-01 07:37] LABS: D Dimer 5290 ug/L FEU (0-500)
[2020-02-01 07:38] LABS: Albumin Level 2.6 gm/dl (3.4-5.0); BUN Creatinine Ratio 21.1 (10-20); Bilirubin Direct 0.1 mg/dl (0-0.2); C Reactive Protein 8.4 mg/dl (0-0.29); Calcium 8.6 mg/dl (8.5-10.1); Creatinine Clr Calc Pharmacy 136.4 ml/min; Est GFR (African American) 119.8; Est GFR (Non-African American) 103.4; Potassium 4.1 mmol/L (3.5-5.1)
[2020-02-01 07:42] LABS: Albumin Globulin Ratio 0.7 (0.9-2); Bilirubin,Total 0.6 mg/dl (0.2-1); Ferritin 640.9 ng/ml (8-388); Globulin 3.6 gm/dl (2.5-4.0); Total Protein 6.2 gm/dl (6.4-8.2)
[2020-02-01] MEDS: ZINC SULFATE 220 MG CAPSULE PO SCH (07:56)
[2020-02-01] MEDS: lisinopriL 5 MG TAB PO SCH (07:56)
[2020-02-01] MEDS: SERTRALINE HCL 100 MG TABLET PO SCH (07:56)
[2020-02-01] MEDS: CARBIDOPA/LEVODOPA 25/100MG TAB PO SCH ×3 (07:57→20:42)
[2020-02-01] MEDS: PANTOprazole 40 MG TAB PO SCH (07:57)
[2020-02-01] MEDS: ASCORBIC ACID 500 MG TAB PO SCH ×2 (07:57→20:42)
[2020-02-01] MEDS: FINASTERIDE 5 MG TAB PO SCH (07:57)
[2020-02-01] MEDS: LORazepam 0.5 MG TAB PO SCH ×2 (08:01→20:42)
[2020-02-01] MEDS: MAGNESIUM OXIDE 400 MG TAB PO SCH (08:02)
[2020-02-01] MEDS: POTASSIUM CHLORIDE 10 MEQ TABCR PO SCH (08:02)
[2020-02-01] MEDS: DOCUSATE SODIUM/SENNA 50/8.6MG TAB PO SCH ×2 (08:02→20:42)
[2020-02-01] MEDS: ENOXAPARIN 80 MG/0.8 ML SYR SQ SCH ×2 (10:46→20:42)
--- NOTE | 2020-02-01 18:32 | Hospitalist Progress Note ---
Date of Service February 01, 2020 Assessment & Plan (1) Closed right hip fracture: Fell and suffered intertrochanteric fracture of right hip. Cephalomedullary nailing performed by Dr. Hanna on 01/24. Post op day # 7. Toe-touch nonweightbearing right lower extremity. Continue PT, OT, analgesics. Check vitamin D level with morning labs. (2) COVID-19: No fever, cough, SOB, hypoxia at time of admission. Tested for COVID-19 due to other cases at his personal care facility. SARS-CoV-2 PCR nasopharyngeal swab positive on 01/22. Weakness from COVID-19 may have contributed to fall and hip fracture. Low grade temp of 37.6 01/26- could have been secondary to COVID-19, but could also be secondary to hip fracture. COVID-19 labs: PCR + 01/22, + 01/27, pending 01/29, pending 01/30 lymphocytes 750 --> --> 990 D-dimer 5290 ESR 52, 55 ferritin 582, 596, 640 CRP 25, 15.8, 8.4 LDH 207, 242. No apparent indication for treatment for COVID-19 at this time. (3) Anemia: Hgb 13.7 preop --> 9.4 --> 8.3. Probable acute blood loss anemia secondary to hip fracture +/- hemodilution from IV fluids. No gross GI bleeding. Hgb today = 9.2.. No indication for transfusion at this time. Follow. (4) HTN (hypertension): Hemodynamically stable. Continue lisinopril. (5) Parkinson disease: Continue carbidopa / levodopa. (6) Dementia: Monitor for delirium. (7) Constipation: Bowel regimen as ordered. (8) DVT prophylaxis: SQ enoxaparin. Ambulate as able. (9) Discharge planning issues: Discharge disposition to be determined- possibilities include return to [facility] with PT/OT vs transfer to skilled care or inpt rehab. Check serial SARS-CoV-2 PCR's until negative x 2 to assist with discharge planning. Ortho follow-up with Dr. Hanna for incision check and x-ray 10-14 days postop. Medical follow-up with Dr. Gutierrez. Called john Maddox to give update this evening. No answer. Message left. (10) Elevated d-dimer: D-dimer ordered as prognostic indicator for COVID-19. It was elevated (5290). Elevated D-dimer not unexpected with hip fracture and repair. No signs or symptoms of DVT or pulmonary embolism (Wells scores for both low). But, at increased risk for VTE due to combination of hip fracture and repair, ongoing relative immobility, and COVID-19. Therefore, will increase SQ enoxaparin to therapeutic dosing. Check venous duplex lower extremities to guide anticoagulation therapy once repeat SARS-CoV-2 negative x 2. Admission and Anticipated Discharge Date Admission Date: January 23, 2020 Subjective Recheck for hip fracture, COVID-19, and other problems. Patient seen in their room around 1240. No fever. Occasional cough. No SOB. Relief of constipation after receiving laxatives and glycerin supp. Less postop pain. Review of Systems: Constitutional- as noted above. Cardiac- no chest pain. Pulmonary- as noted above. GI- constipated; no nausea, vomiting, diarrhea, melena, hematochezia. - urinary incontinence, no dysuria. Otherwise, as noted above. Physical Exam Constitutional: no acute distress Respiratory: no respiratory distress Auscultation: lungs clear to auscultation bilaterally Cardiovascular: Rate/Rhythm: regular rate and regular rhythm Heart Sounds: no gallop and no cardiac rub Vessels: no JVD Extremities: no calf tenderness and no edema Gastrointestinal (Abdomen): normal bowel sounds, soft, nontender, no hepatosplenomegaly Musculoskeletal: Extremities: + extremities abnormal to inspection (right hip bandaged; SCD's applied) and no cyanosis Skin: no rashes, warm and dry Psychiatric: Orientation: alert; + not oriented x 3 (some confusion) Results & Data Results & Data ([facility]) Vital Signs (Past 12 Hours) Vital Signs Temp Pulse Resp BP Pulse Ox 02/01/20 15:00 36.8 C 77 20 129/76 96 02/01/20 07:47 36.9 C 79 20 148/83 H 95 Laboratory Results Laboratory Results - last 24 hr 01/30/20 01/30/20 02/01/20 11:00 11:00 06:33 WBC RBC Hgb Hct MCV MCH MCHC RDW Std Deviation RDW Coeff of David Plt Count MPV Immature Gran % (Auto) Neut % (Auto) Lymph % (Auto) [place] % (Auto) Eos % (Auto) Baso % (Auto) Immature Gran # (Auto) Neut # (Auto) Lymph # (Auto) [place] # (Auto) Eos # (Auto) Baso # (Auto) Absolute Nucleated RBC Nucleated RBC % (auto) ESR D-Dimer Sodium Potassium Chloride Carbon Dioxide Anion Gap BUN Creatinine Est Cr Clr Drug Dosing Est GFR ( Amer) Est GFR (Non-Af Amer) BUN/Creatinine Ratio Glucose Calcium Ferritin Total Bilirubin Direct Bilirubin AST ALT Alkaline Phosphatase Lactate Dehydrogenase 242 H C-Reactive Protein Total Protein Albumin Globulin Albumin/Globulin Ratio 25-OH Vitamin D Total SARS-CoV-2 RNA (RT-PCR) Cancelled Pending 02/01/20 02/01/20 02/01/20 06:33 06:33 06:33 WBC 7.05 RBC 3.06 L Hgb 9.2 L Hct 27.9 L MCV 91.2 MCH 30.1 MCHC 33.0 RDW Std Deviation 45.5 RDW Coeff of David 13.8 Plt Count 354 MPV 8.9 Immature Gran % (Auto) 1.6 Neut % (Auto) 73.7 Lymph % (Auto) 14.0 [place] % (Auto) 9.2 Eos % (Auto) 1.4 Baso % (Auto) 0.1 Immature Gran # (Auto) 0.11 H Neut # (Auto) 5.19 Lymph # (Auto) 0.99 L [place] # (Auto) 0.65 H Eos # (Auto) 0.10 Baso # (Auto) 0.01 Absolute Nucleated RBC 0.03 H Nucleated RBC % (auto) 0.4 ESR 55 H D-Dimer 5290 H* Sodium Potassium Chloride Carbon Dioxide Anion Gap BUN Creatinine Est Cr Clr Drug Dosing Est GFR ( Amer) Est GFR (Non-Af Amer) BUN/Creatinine Ratio Glucose Calcium Ferritin Total Bilirubin Direct Bilirubin AST ALT Alkaline Phosphatase Lactate Dehydrogenase C-Reactive Protein Total Protein Albumin Globulin Albumin/Globulin Ratio 25-OH Vitamin D Total SARS-CoV-2 RNA (RT-PCR) 02/01/20 02/01/20 02/02/20 06:33 14:15 04:44 WBC RBC Hgb Hct MCV MCH MCHC RDW Std Deviation RDW Coeff of David Plt Count MPV Immature Gran % (Auto) Neut % (Auto) Lymph % (Auto) [place] % (Auto) Eos % (Auto) Baso % (Auto) Immature Gran # (Auto) Neut # (Auto) Lymph # (Auto) [place] # (Auto) Eos # (Auto) Baso # (Auto) Absolute Nucleated RBC Nucleated RBC % (auto) ESR D-Dimer Sodium 139 Potassium 4.1 Chloride 106 Carbon Dioxide 26 Anion Gap 8.0 BUN 12 Creatinine 0.55 L Est Cr Clr Drug Dosing 136.4 Est GFR ( Amer) 119.8 Est GFR (Non-Af Amer) 103.4 BUN/Creatinine Ratio 21.1 H Glucose 95 Calcium 8.6 Ferritin 640.9 H Total Bilirubin 0.6 Direct Bilirubin 0.1 AST 35 ALT 20 Alkaline Phosphatase 97 Lactate Dehydrogenase C-Reactive Protein 8.40 H Total Protein 6.2 L Albumin 2.6 L Globulin 3.6 Albumin/Globulin Ratio 0.7 L 25-OH Vitamin D Total Cancelled SARS-CoV-2 RNA (RT-PCR) Pending (1) Closed right hip fracture Encounter type: initial encounter Qualified Code(s): S72.001A - Fracture of unspecified part of neck of right femur, initial encounter for closed fracture
[2020-02-01] MEDS: OXYCODONE HCL IR 5 MG TAB (IMMEDIATE RELEASE) PO PRN (21:40)
[2020-02-02] MEDS: SERTRALINE HCL 100 MG TABLET PO SCH (08:06)
[2020-02-02] MEDS: CARBIDOPA/LEVODOPA 25/100MG TAB PO SCH ×3 (08:06→20:56)
[2020-02-02] MEDS: LORazepam 0.5 MG TAB PO SCH ×2 (08:06→20:54)
[2020-02-02] MEDS: FINASTERIDE 5 MG TAB PO SCH (08:06)
[2020-02-02] MEDS: PANTOprazole 40 MG TAB PO SCH (08:07)
[2020-02-02] MEDS: ENOXAPARIN 80 MG/0.8 ML SYR SQ SCH ×2 (08:07→20:54)
[2020-02-02] MEDS: lisinopriL 5 MG TAB PO SCH (08:07)
[2020-02-02] MEDS: ZINC SULFATE 220 MG CAPSULE PO SCH (08:07)
[2020-02-02] MEDS: DOCUSATE SODIUM/SENNA 50/8.6MG TAB PO SCH ×2 (08:13→21:06)
[2020-02-02] MEDS: ACETAMINOPHEN 500 MG TAB PO SCH ×3 (08:13→23:41)
[2020-02-02] MEDS: ASCORBIC ACID 500 MG TAB PO SCH ×2 (09:11→20:56)
[2020-02-02] MEDS: MAGNESIUM OXIDE 400 MG TAB PO SCH (09:11)
[2020-02-02] MEDS: POTASSIUM CHLORIDE 10 MEQ TABCR PO SCH (09:11)
--- NOTE | 2020-02-02 16:48 | Hospitalist Progress Note ---
Date of Service February 02, 2020 Assessment & Plan (1) Closed right hip fracture: Fell and suffered intertrochanteric fracture of right hip. Cephalomedullary nailing performed by Dr. Hanna on 01/24. Post op day # 8. Toe-touch nonweightbearing right lower extremity. Continue PT, OT, analgesics. 25-OH vitamin D level = 85. (2) COVID-19: No fever, cough, SOB, hypoxia at time of admission. Tested for COVID-19 due to other cases at his personal care facility. SARS-CoV-2 PCR nasopharyngeal swab positive on 01/22. Weakness from COVID-19 may have contributed to fall and hip fracture. Low grade temp of 37.6 01/26- could have been secondary to COVID-19, but could also be secondary to hip fracture. COVID-19 labs: PCR + 01/22, 01/27, 01/29, 01/31 lymphocytes 750 --> --> 990 D-dimer 5290 ESR 52, 55 ferritin 582, 596, 640 CRP 25, 15.8, 8.4 LDH 207, 242. No apparent indication for treatment for COVID-19 at this time. Recheck serial SARS-CoV-2 PCR's until negative x 2 to assist with determining isolation needs and discharge planning. (3) Anemia: Hgb 13.7 preop --> 9.4 --> 8.3. Probable acute blood loss anemia secondary to hip fracture +/- hemodilution from IV fluids. No gross GI bleeding. Hgb yesterday = 9.2. No indication for transfusion at this time. Follow. (4) HTN (hypertension): Hemodynamically stable. Continue lisinopril. (5) Parkinson disease: Continue carbidopa / levodopa. (6) Dementia: Monitor for delirium. (7) Constipation: Bowel regimen as ordered. (8) Elevated d-dimer: D-dimer ordered as prognostic indicator for COVID-19. It was elevated (5290). Elevated D-dimer not unexpected with hip fracture and repair. No signs or symptoms of DVT or pulmonary embolism (Wells scores for both low). But... at increased risk for VTE due to combination of hip fracture and repair, ongoing relative immobility due to Parkinson's disease, and COVID-19. Therefore, SQ enoxaparin to therapeutic dosing. Check venous duplex lower extremities to guide anticoagulation strategy once repeat SARS-CoV-2 negative x 2. (9) DVT prophylaxis: SQ enoxaparin as discussed above. Ambulate as able. (10) Discharge planning issues: Discharge disposition to be determined- possibilities include return to [facility] with PT/OT vs transfer to skilled care or inpt rehab. Check serial SARS-CoV-2 PCR's until negative x 2 to assist with discharge planning. Ortho follow-up with Dr. Hanna for incision check and x-ray 10-14 days postop. Medical follow-up with Dr. Gutierrez. Called john Maddox to give update this afternoon. Admission and Anticipated Discharge Date Admission Date: January 23, 2020 Subjective Recheck for hip fracture, COVID-19, and other problems. Patient seen in their room around 1230. No fever. Rare cough. No SOB. Less postop pain. Participating with PT and OT. Less confused. Review of Systems: Constitutional- as noted above. Cardiac- no chest pain. Pulmonary- as noted above. GI- constipated resolved; no nausea, vomiting, diarrhea, melena, hematochezia. - chronic urinary incontinence, no dysuria. Otherwise, as noted above. Physical Exam Constitutional: no acute distress Respiratory: no respiratory distress Auscultation: lungs clear to auscultation bilaterally Cardiovascular: Rate/Rhythm: regular rate and regular rhythm Heart Sounds: no gallop and no cardiac rub Vessels: no JVD Extremities: no calf tenderness and no edema Gastrointestinal (Abdomen): normal bowel sounds, soft, nontender, no hepatosplenomegaly Musculoskeletal: Extremities: + extremities abnormal to inspection (right hip bandaged; SCD's bilat lower extremities) and no cyanosis Skin: no rashes, warm and dry Psychiatric: Orientation: alert; + not oriented x 3 (mild-moderate confusion) Results & Data Results & Data ([facility]) Vital Signs (Past 12 Hours) Vital Signs Temp Pulse Resp BP Pulse Ox 02/02/20 08:00 36.8 C 83 18 150/87 H 94 (1) Closed right hip fracture Encounter type: initial encounter Qualified Code(s): S72.001A - Fracture of unspecified part of neck of right femur, initial encounter for closed fracture
[2020-02-03 06:41] LABS: Basophils # (auto) 0.01 K/uL (0-0.2); Basophils % (auto) 0.1 %; Eosinophils # (auto) 0.09 K/uL (0-0.5); Eosinophils % (auto) 1.1 %; Hemoglobin 9.8 g/dL (14.0-18.0); Immature Granulocytes # (auto) 0.13 K/uL (0.00-0.02); Immature Granulocytes % (auto) 1.6 %; Lymphocytes # (auto) 1.38 K/uL (1.2-3.4); Lymphocytes % (auto) 17.3 %; Mean Corpuscular Hemoglobin 29.3 pg (25-34); Mean Corpuscular Hgb Conc 31.6 g/dL (32-36); Mean Corpuscular Volume 92.8 fL (80-100); Mean Platelet Volume 9.1 fL (7.4-10.4); Monocytes # (auto) 0.66 K/uL (0.11-0.59); Monocytes % (auto) 8.3 %; Neutrophils # (auto) 5.71 K/uL (1.4-6.5); Neutrophils % (auto) 71.6 %; Nucleated RBC # (auto) 0.02 K/uL (0-0); Nucleated RBC % (auto) 0.3 %; Platelet Count 433 K/uL (130-400); RDW Coefficient of Variation 14.9 % (11.5-14.5); RDW Standard Deviation 47.6 fL (36.4-46.3); Red Blood Count 3.34 M/uL (4.7-6.1); White Blood Count 7.98 K/uL (4.8-10.8)
[2020-02-03 07:15] LABS: D Dimer 6880 ug/L FEU (0-500)
[2020-02-03 07:20] LABS: Albumin Level 2.8 gm/dl (3.4-5.0); BUN Creatinine Ratio 18.6 (10-20); Bilirubin Direct 0.1 mg/dl (0-0.2); Calcium 8.4 mg/dl (8.5-10.1); Creatinine Clr Calc Pharmacy 107.1 ml/min; Est GFR (African American) 108.5; Est GFR (Non-African American) 93.6; Potassium 4.1 mmol/L (3.5-5.1)
[2020-02-03 07:24] LABS: Albumin Globulin Ratio 0.7 (0.9-2); Bilirubin,Total 0.7 mg/dl (0.2-1); C Reactive Protein 4.55 mg/dl (0-0.29); Ferritin 629.4 ng/ml (8-388); Globulin 3.8 gm/dl (2.5-4.0); Total Protein 6.6 gm/dl (6.4-8.2)
[2020-02-03] MEDS: lisinopriL 5 MG TAB PO SCH (08:45)
[2020-02-03] MEDS: CARBIDOPA/LEVODOPA 25/100MG TAB PO SCH ×3 (08:45→19:54)
[2020-02-03] MEDS: FINASTERIDE 5 MG TAB PO SCH (08:46)
[2020-02-03] MEDS: PANTOprazole 40 MG TAB PO SCH (08:46)
[2020-02-03] MEDS: SERTRALINE HCL 100 MG TABLET PO SCH (08:46)
[2020-02-03] MEDS: ZINC SULFATE 220 MG CAPSULE PO SCH (08:47)
[2020-02-03] MEDS: ASCORBIC ACID 500 MG TAB PO SCH ×2 (08:47→19:54)
[2020-02-03] MEDS: ENOXAPARIN 80 MG/0.8 ML SYR SQ SCH ×2 (08:52→19:53)
[2020-02-03] MEDS: ACETAMINOPHEN 500 MG TAB PO SCH ×3 (09:07→23:24)
[2020-02-03] MEDS: LORazepam 0.5 MG TAB PO SCH ×2 (09:07→19:52)
[2020-02-03] MEDS: MAGNESIUM OXIDE 400 MG TAB PO SCH (11:21)
[2020-02-03] MEDS: DOCUSATE SODIUM/SENNA 50/8.6MG TAB PO SCH ×2 (11:21→19:56)
[2020-02-03] MEDS: POTASSIUM CHLORIDE 10 MEQ TABCR PO SCH (11:21)
--- NOTE | 2020-02-03 17:25 | Hospitalist Progress Note ---
Date of Service February 03, 2020 Assessment & Plan (1) Closed right hip fracture: Fell and suffered intertrochanteric fracture of right hip. Cephalomedullary nailing performed by Dr. Hanna on 01/24. Toe-touch nonweightbearing right lower extremity. Continue PT, OT, analgesics. 25-OH vitamin D level = 85. (2) COVID-19: No apparent indication for treatment for COVID-19 at this time. Recheck serial SARS-CoV-2 PCR's until negative x 2 to assist with determining isolation needs and discharge planning. (3) Anemia: Hgb 13.7 preop --> 9.4 --> 8.3. Probable acute blood loss anemia secondary to hip fracture +/- hemodilution from IV fluids. No gross GI bleeding. Hgb yesterday = 9.2. No indication for transfusion at this time. (4) HTN (hypertension): cont lisinopril per home regimen. (5) Parkinson disease: Continue carbidopa / levodopa per home regimen. (6) Dementia: At baseline mental status. Monitor for delirium. (7) Elevated d-dimer: D-dimer ordered as prognostic indicator for COVID-19. It was elevated (5290). Elevated D-dimer not unexpected with hip fracture and repair. No signs or symptoms of DVT or pulmonary embolism (Wells scores for both low). But... at increased risk for VTE due to combination of hip fracture and repair, ongoing relative immobility due to Parkinson's disease, and COVID-19. Therefore, SQ enoxaparin to therapeutic dosing. (8) DVT prophylaxis: Lovenox Full code Dispo-discharge to rehab once Covid PCR neg x 2 [facility] Admission and Anticipated Discharge Date Admission Date: January 23, 2020 Subjective doing well denies pain in hip reports working with PT/OT spoke with multiple family members by phone tolerating PO Review of Systems Review of Systems: All systems reviewed & are unremarkable except as noted in Subjective Physical Exam Physical Exam: CONSTITUTIONAL: WNWD, vitals as above, generally well- appearing, appears comfortable. EYES: normal conjunctivae, no scleral icterus ENT: external ear and nose normal, MMM NECK: trachea midline RESPIRATORY: clear to auscultation bilaterally, no crackles, rales or wheezes, normal respiratory effort CARDIOVASCULAR: regular rate and rhythm, S1 and 2 heard without murmurs, gallops or rubs, no JVD, no peripheral edema GASTROINTESTINAL: soft, nontender, nondistended MUSCULOSKELETAL: Moves extremities as expected post op. R hip incision covered with dressing that is c/d/i SKIN: warm and dry NEUROLOGIC: CN 2-12 grossly intact, normal cognition, normal speech, no gross focal deficits. PSYCHIATRIC: alert cooperative and oriented to person and place and at baseline mental status. Results & Data Results & Data ([facility]) Vital Signs (Past 12 Hours) Vital Signs Temp Pulse Resp BP BP Pulse Ox 02/03/20 15:00 37.1 C 82 18 118/74 95 02/03/20 13:06 96 02/03/20 07:40 36.8 C 79 20 128/75 97 Laboratory Results Short CBC 02/03/20 Range/Units 06:03 WBC 7.98 (4.8-10.8) K/uL Hgb 9.8 L (14.0-18.0) g/dL Hct 31.0 L (42-52) % Plt Count 433 H (130-400) K/uL BMP 02/03/20 06:03 Sodium 140 Potassium 4.1 Chloride 107 Carbon Dioxide 26 BUN 13 Creatinine 0.70 Glucose 88 Calcium 8.4 L Liver Function 02/03/20 Range/Units 06:03 Total Bilirubin 0.7 (0.2-1) mg/dl Direct Bilirubin 0.1 (0-0.2) mg/dl AST 25 (15-37) U/L ALT 16 (12-78) U/L Alkaline Phosphatase 161 H (45-117) U/L Albumin 2.8 L (3.4-5.0) gm/dl Medications Administered Current Inpatient Medications Acetaminophen (Tylenol) 1,000 mg PO Q8H LISA Stop: 02/22/20 21:59 Last Admin: 02/03/20 15:43 Dose: 1,000 mg Documented by: Ascorbic Acid (Vitamin C) 500 mg PO BID@0800,1999 LISA Stop: 02/24/20 19:59 Last Admin: 02/03/20 08:47 Dose: 500 mg Documented by: Bisacodyl (Dulcolax) 10 mg TN DAILY PRN PRN Reason: Constipation Stop: 02/22/20 15:48 Carbidopa/Levodopa (Sinemet 25/100 Mg) 1 tab PO TID@0800,1500,1999 [facility] Stop: 02/22/20 19:59 Last Admin: 02/03/20 14:52 Dose: 1 tab Documented by: Enoxaparin Sodium (Lovenox) 80 mg SQ Q12H [facility] Stop: 03/02/20 07:59 Last Admin: 02/03/20 08:52 Dose: 80 mg Documented by: Finasteride (Proscar) 5 mg PO QAM@0800 [facility] Stop: 02/24/20 07:59 Last Admin: 02/03/20 08:46 Dose: 5 mg Documented by: Glycerin (Glycerin Adult) 1 supp TN DAILY PRN PRN Reason: Constipation Stop: 03/01/20 13:58 Lisinopril (Zestril) 5 mg PO DAILY@0800 [facility] Stop: 02/23/20 07:59 Last Admin: 02/03/20 08:45 Dose: 5 mg Documented by: Lorazepam (Ativan) 0.5 mg PO BID@799,1999 [facility] Stop: 02/22/20 19:59 Last Admin: 02/03/20 09:07 Dose: 0.5 mg Documented by: Magnesium Hydroxide (Milk Of Magnesia) 30 ml PO DAILY PRN PRN Reason: Constipation Stop: 02/22/20 15:48 Last Admin: 01/30/20 15:12 Dose: 30 ml Documented by: Magnesium Oxide (Mag-Ox) 400 mg PO QAM@0800 [facility] Stop: 02/24/20 12:44 Last Admin: 02/03/20 11:21 Dose: 400 mg Documented by: Naloxone HCl (Narcan) 0.1 mg IV UD PRN PRN Reason: Opioid Overdose Stop: 02/24/20 15:43 Oxycodone HCl (Roxicodone Immediate Rel) 5 mg PO Q4H PRN PRN Reason: MODERATE Pain (Scale 4,5,6) Stop: 02/06/20 15:48 Last Admin: 02/01/20 21:40 Dose: 5 mg Documented by: Pantoprazole Sodium (Protonix) 40 mg PO QDB@0800 [facility] Stop: 02/24/20 07:59 Last Admin: 02/03/20 08:46 Dose: 40 mg Documented by: Polyethylene Glycol (Miralax Powder Packet) 17 gm PO DAILY PRN PRN Reason: Constipation Stop: 02/29/20 22:46 Last Admin: 01/31/20 13:29 Dose: 17 gm Documented by: Potassium Chloride (Klor-Con M10) 10 meq PO DAILY@0800 [facility] Stop: 02/23/20 07:59 Last Admin: 02/03/20 11:21 Dose: 10 meq Documented by: Senna/Docusate Sodium (Senokot S) 1 tab PO BID@0800,1999 [facility] Stop: 02/22/20 19:59 Last Admin: 02/03/20 11:21 Dose: 1 tab Documented by: Sertraline HCl (Zoloft) 100 mg PO QAM@0800 [facility] Stop: 02/24/20 07:59 Last Admin: 02/03/20 08:46 Dose: 100 mg Documented by: Zinc Sulfate (Zinc Sulfate) 220 mg PO QAM@0800 [facility] Stop: 02/24/20 12:44 Last Admin: 02/03/20 08:47 Dose: 220 mg Documented by: (1) Closed right hip fracture Encounter type: initial encounter Qualified Code(s): S72.001A - Fracture of unspecified part of neck of right femur, initial encounter for closed fracture
[2020-02-04] MEDS: ENOXAPARIN 80 MG/0.8 ML SYR SQ SCH ×2 (07:31→20:16)
[2020-02-04] MEDS: FINASTERIDE 5 MG TAB PO SCH (07:32)
[2020-02-04] MEDS: ACETAMINOPHEN 500 MG TAB PO SCH ×3 (07:32→23:47)
[2020-02-04] MEDS: CARBIDOPA/LEVODOPA 25/100MG TAB PO SCH ×3 (07:32→20:17)
[2020-02-04] MEDS: DOCUSATE SODIUM/SENNA 50/8.6MG TAB PO SCH ×2 (07:32→20:20)
[2020-02-04] MEDS: PANTOprazole 40 MG TAB PO SCH (07:32)
[2020-02-04] MEDS: ZINC SULFATE 220 MG CAPSULE PO SCH (07:32)
[2020-02-04] MEDS: lisinopriL 5 MG TAB PO SCH (07:32)
[2020-02-04] MEDS: LORazepam 0.5 MG TAB PO SCH ×2 (07:32→20:15)
[2020-02-04] MEDS: ASCORBIC ACID 500 MG TAB PO SCH ×2 (07:32→20:18)
[2020-02-04] MEDS: SERTRALINE HCL 100 MG TABLET PO SCH (07:32)
[2020-02-04] MEDS: POTASSIUM CHLORIDE 10 MEQ TABCR PO SCH (08:31)
[2020-02-04] MEDS: MAGNESIUM OXIDE 400 MG TAB PO SCH (08:31)
[2020-02-04] MEDS: OXYCODONE HCL IR 5 MG TAB (IMMEDIATE RELEASE) PO PRN ×2 (13:32→18:10)
--- NOTE | 2020-02-04 16:14 | Hospitalist Progress Note ---
Date of Service February 04, 2020 Assessment & Plan (1) Closed right hip fracture: Fell and suffered intertrochanteric fracture of right hip. Cephalomedullary nailing performed by Dr. Hanna on 01/24. Toe-touch nonweightbearing right lower extremity. Continue PT, OT, analgesics. 25-OH vitamin D level = 85. Wound covered with gauze. As not draining, will encourage nursing to leave open to air. Touched base with Ortho regarding 2 week followup to evaluate the wound. (2) COVID-19: No apparent indication for treatment for COVID-19 at this time. Recheck serial SARS-CoV-2 PCR's until negative x 2 to assist with determining isolation needs and discharge planning. Will screen on a q72hr interval. (3) Anemia: Probable acute blood loss anemia secondary to hip fracture +/- hemodilution from IV fluids. No gross GI bleeding. No indication for transfusion at this time. (4) HTN (hypertension): cont lisinopril per home regimen. (5) Parkinson disease: Continue carbidopa / levodopa per home regimen. (6) Dementia: At baseline mental status. Monitor for delirium. (7) Elevated d-dimer: D-dimer ordered as prognostic indicator for COVID-19. Therapeutic Lovenox was started. (8) DVT prophylaxis: Lovenox Full code Dispo-discharge to rehab once Covid PCR neg x 2 DO Gonzalo Miranda Hospitalist Admission and Anticipated Discharge Date Admission Date: January 23, 2020 Subjective doing well denies pain in hip reports working with PT/OT tolerating PO Review of Systems Review of Systems: All systems reviewed & are unremarkable except as noted in Subjective Physical Exam Physical Exam: CONSTITUTIONAL: WNWD, vitals as above, generally well- appearing, appears comfortable. EYES: normal conjunctivae, no scleral icterus ENT: external ear and nose normal, MMM NECK: trachea midline RESPIRATORY: clear to auscultation bilaterally, no crackles, rales or wheezes, normal respiratory effort CARDIOVASCULAR: regular rate and rhythm, S1 and 2 heard without murmurs, gallops or rubs, no JVD, no peripheral edema GASTROINTESTINAL: soft, nontender, nondistended MUSCULOSKELETAL: Moves extremities as expected post op. R hip incision covered with dressing that is c/d/i SKIN: warm and dry NEUROLOGIC: CN 2-12 grossly intact, normal cognition, normal speech, no gross focal deficits. PSYCHIATRIC: alert cooperative and oriented to person and place and at baseline mental status. Results & Data Results & Data ([facility]) Vital Signs (Past 12 Hours) Vital Signs Temp Pulse Resp BP Pulse Ox 02/04/20 14:14 36.5 C 83 18 115/85 95 Medications Administered Current Inpatient Medications Acetaminophen (Tylenol) 1,000 mg PO Q8H [facility] Stop: 02/22/20 21:59 Last Admin: 02/04/20 15:21 Dose: 1,000 mg Documented by: Ascorbic Acid (Vitamin C) 500 mg PO BID@799,1999 [facility] Stop: 02/24/20 19:59 Last Admin: 02/04/20 07:32 Dose: 500 mg Documented by: Bisacodyl (Dulcolax) 10 mg [place] DAILY PRN PRN Reason: Constipation Stop: 02/22/20 15:48 Carbidopa/Levodopa (Sinemet 25/100 Mg) 1 tab PO TID@0800,1499,1999 [facility] Stop: 02/22/20 19:59 Last Admin: 02/04/20 14:07 Dose: 1 tab Documented by: Enoxaparin Sodium (Lovenox) 80 mg SQ Q12H [facility] Stop: 03/02/20 07:59 Last Admin: 02/04/20 07:31 Dose: 80 mg Documented by: Finasteride (Proscar) 5 mg PO QAM@0800 [facility] Stop: 02/24/20 07:59 Last Admin: 02/04/20 07:32 Dose: 5 mg Documented by: Glycerin (Glycerin Adult) 1 supp MN DAILY PRN PRN Reason: Constipation Stop: 03/01/20 13:58 Lisinopril (Zestril) 5 mg PO DAILY@0800 [facility] Stop: 02/23/20 07:59 Last Admin: 02/04/20 07:32 Dose: 5 mg Documented by: Lorazepam (Ativan) 0.5 mg PO BID@799,1999 [facility] Stop: 02/22/20 19:59 Last Admin: 02/04/20 07:32 Dose: 0.5 mg Documented by: Magnesium Hydroxide (Milk Of Magnesia) 30 ml PO DAILY PRN PRN Reason: Constipation Stop: 02/22/20 15:48 Last Admin: 01/30/20 15:12 Dose: 30 ml Documented by: Magnesium Oxide (Mag-Ox) 400 mg PO QAM@0800 [facility] Stop: 02/24/20 12:44 Last Admin: 02/04/20 08:31 Dose: 400 mg Documented by: Naloxone HCl (Narcan) 0.1 mg IV UD PRN PRN Reason: Opioid Overdose Stop: 02/24/20 15:43 Oxycodone HCl (Roxicodone Immediate Rel) 5 mg PO Q4H PRN PRN Reason: MODERATE Pain (Scale 4,5,6) Stop: 02/06/20 15:48 Last Admin: 02/04/20 13:32 Dose: 5 mg Documented by: Pantoprazole Sodium (Protonix) 40 mg PO QDB@0800 [facility] Stop: 02/24/20 07:59 Last Admin: 02/04/20 07:32 Dose: 40 mg Documented by: Polyethylene Glycol (Miralax Powder Packet) 17 gm PO DAILY PRN PRN Reason: Constipation Stop: 02/29/20 22:46 Last Admin: 01/31/20 13:29 Dose: 17 gm Documented by: Potassium Chloride (Klor-Con M10) 10 meq PO DAILY@0800 [facility] Stop: 02/23/20 07:59 Last Admin: 02/04/20 08:31 Dose: 10 meq Documented by: Senna/Docusate Sodium (Senokot S) 1 tab PO BID@0800,1999 [facility] Stop: 02/22/20 19:59 Last Admin: 02/04/20 07:32 Dose: 1 tab Documented by: Sertraline HCl (Zoloft) 100 mg PO QAM@0800 [facility] Stop: 02/24/20 07:59 Last Admin: 02/04/20 07:32 Dose: 100 mg Documented by: Zinc Sulfate (Zinc Sulfate) 220 mg PO QAM@0800 [facility] Stop: 02/24/20 12:44 Last Admin: 02/04/20 07:32 Dose: 220 mg Documented by: (1) Closed right hip fracture Encounter type: initial encounter Qualified Code(s): S72.001A - Fracture of unspecified part of neck of right femur, initial encounter for closed fracture
[2020-02-05] MEDS: OXYCODONE HCL IR 5 MG TAB (IMMEDIATE RELEASE) PO PRN ×3 (02:07→16:59)
[2020-02-05] MEDS: LORazepam 0.5 MG TAB PO SCH ×2 (08:27→20:11)
[2020-02-05] MEDS: FINASTERIDE 5 MG TAB PO SCH (08:27)
--- NOTE | 2020-02-05 08:27 | Hospitalist Progress Note ---
Date of Service February 05, 2020 Assessment & Plan (1) Closed right hip fracture: Fell and suffered intertrochanteric fracture of right hip. Cephalomedullary nailing performed by Dr. Hanna on 01/24. Toe-touch nonweightbearing right lower extremity. Continue PT, OT, analgesics. 25-OH vitamin D level = 85. Wound healing well-elvira still in place. Ortho to do post op check prior to his discharge. (2) COVID-19: No apparent indication for treatment for COVID-19 at this time. Recheck serial SARS-CoV-2 PCR's until negative x 2 to assist with determining isolation needs and discharge planning. Will screen on a q72hr interval. (3) Anemia: stable, Probable acute blood loss anemia secondary to hip fracture +/- hemodilution from IV fluids. No gross GI bleeding. No indication for transfusion at this time. (4) HTN (hypertension): cont lisinopril per home regimen. (5) Parkinson disease: Continue carbidopa / levodopa per home regimen. (6) Dementia: At baseline mental status. Monitor for delirium. (7) Elevated d-dimer: D-dimer ordered as prognostic indicator for COVID-19. Therapeutic Lovenox was started. (8) DVT prophylaxis: Lovenox Full code Dispo-discharge to rehab once Covid PCR neg x 2 [facility] and Anticipated Discharge Date Admission Date: January 23, 2020 Subjective doing well denies pain some weakness in RLE working wtih PT tolerating PO Review of Systems Review of Systems: All systems reviewed & are unremarkable except as noted in Subjective Physical Exam Physical Exam: CONSTITUTIONAL: WNWD, vitals as above, generally well- appearing, appears comfortable. EYES: normal conjunctivae, no scleral icterus ENT: external ear and nose normal, MMM NECK: trachea midline RESPIRATORY: clear to auscultation bilaterally, no crackles, rales or wheezes, normal respiratory effort CARDIOVASCULAR: regular rate and rhythm, S1 and 2 heard without murmurs, gallops or rubs, no JVD, no peripheral edema GASTROINTESTINAL: soft, nontender, nondistended MUSCULOSKELETAL: Moves extremities as expected post op. R hip incision closed with elvira that are intact. No surrounding erythema or drainage. SKIN: warm and dry NEUROLOGIC: CN 2-12 grossly intact, normal cognition, normal speech, no gross focal deficits. PSYCHIATRIC: alert cooperative and oriented to person and place and at baseline mental status. Results & Data Results & Data ([facility]) Vital Signs (Past 12 Hours) Vital Signs Temp Pulse Resp BP Pulse Ox 02/04/20 23:40 36.5 C 20 126/67 96 02/04/20 21:24 36.8 C 85 21 127/66 96 Medications Administered Current Inpatient Medications Acetaminophen (Tylenol) 1,000 mg PO Q8H [facility] Stop: 02/22/20 21:59 Last Admin: 02/04/20 23:47 Dose: 1,000 mg Documented by: Ascorbic Acid (Vitamin C) 500 mg PO BID@ [facility] Stop: 02/24/20 19:59 Last Admin: 02/04/20 20:18 Dose: 500 mg Documented by: Bisacodyl (Dulcolax) 10 mg [place] DAILY PRN PRN Reason: Constipation Stop: 02/22/20 15:48 Carbidopa/Levodopa (Sinemet 25/100 Mg) 1 tab PO TID@0800,1499,1999 [facility] Stop: 02/22/20 19:59 Last Admin: 02/04/20 20:17 Dose: 1 tab Documented by: Enoxaparin Sodium (Lovenox) 80 mg SQ Q12H [facility] Stop: 03/02/20 07:59 Last Admin: 02/04/20 20:16 Dose: 80 mg Documented by: Finasteride (Proscar) 5 mg PO QAM@0800 [facility] Stop: 02/24/20 07:59 Last Admin: 02/04/20 07:32 Dose: 5 mg Documented by: Glycerin (Glycerin Adult) 1 supp CO DAILY PRN PRN Reason: Constipation Stop: 03/01/20 13:58 Lisinopril (Zestril) 5 mg PO DAILY@0800 [facility] Stop: 02/23/20 07:59 Last Admin: 02/04/20 07:32 Dose: 5 mg Documented by: Lorazepam (Ativan) 0.5 mg PO BID@799,1999 [facility] Stop: 02/22/20 19:59 Last Admin: 02/04/20 20:15 Dose: 0.5 mg Documented by: Magnesium Hydroxide (Milk Of Magnesia) 30 ml PO DAILY PRN PRN Reason: Constipation Stop: 02/22/20 15:48 Last Admin: 01/30/20 15:12 Dose: 30 ml Documented by: Magnesium Oxide (Mag-Ox) 400 mg PO QAM@0800 [facility] Stop: 02/24/20 12:44 Last Admin: 02/04/20 08:31 Dose: 400 mg Documented by: Naloxone HCl (Narcan) 0.1 mg IV UD PRN PRN Reason: Opioid Overdose Stop: 02/24/20 15:43 Oxycodone HCl (Roxicodone Immediate Rel) 5 mg PO Q4H PRN PRN Reason: MODERATE Pain (Scale 4,5,6) Stop: 02/06/20 15:48 Last Admin: 02/05/20 02:07 Dose: 5 mg Documented by: Pantoprazole Sodium (Protonix) 40 mg PO QDB@0800 [facility] Stop: 02/24/20 07:59 Last Admin: 02/04/20 07:32 Dose: 40 mg Documented by: Polyethylene Glycol (Miralax Powder Packet) 17 gm PO DAILY PRN PRN Reason: Constipation Stop: 02/29/20 22:46 Last Admin: 01/31/20 13:29 Dose: 17 gm Documented by: Potassium Chloride (Klor-Con M10) 10 meq PO DAILY@0800 [facility] Stop: 02/23/20 07:59 Last Admin: 02/04/20 08:31 Dose: 10 meq Documented by: Senna/Docusate Sodium (Senokot S) 1 tab PO BID@0800,1999 [facility] Stop: 02/22/20 19:59 Last Admin: 02/04/20 20:20 Dose: 1 tab Documented by: Sertraline HCl (Zoloft) 100 mg PO QAM@0800 [facility] Stop: 02/24/20 07:59 Last Admin: 02/04/20 07:32 Dose: 100 mg Documented by: Zinc Sulfate (Zinc Sulfate) 220 mg PO QAM@0800 [facility] Stop: 02/24/20 12:44 Last Admin: 02/04/20 07:32 Dose: 220 mg Documented by: (1) Closed right hip fracture Encounter type: initial encounter Qualified Code(s): S72.001A - Fracture of unspecified part of neck of right femur, initial encounter for closed fracture
[2020-02-05] MEDS: ZINC SULFATE 220 MG CAPSULE PO SCH (08:28)
[2020-02-05] MEDS: PANTOprazole 40 MG TAB PO SCH (08:29)
[2020-02-05] MEDS: lisinopriL 5 MG TAB PO SCH (08:29)
[2020-02-05] MEDS: SERTRALINE HCL 100 MG TABLET PO SCH (08:29)
[2020-02-05] MEDS: CARBIDOPA/LEVODOPA 25/100MG TAB PO SCH ×3 (08:30→20:08)
[2020-02-05] MEDS: ASCORBIC ACID 500 MG TAB PO SCH ×2 (08:30→20:14)
[2020-02-05] MEDS: ENOXAPARIN 80 MG/0.8 ML SYR SQ SCH ×2 (08:32→20:07)
[2020-02-05] MEDS: DOCUSATE SODIUM/SENNA 50/8.6MG TAB PO SCH ×2 (08:56→20:14)
[2020-02-05] MEDS: POTASSIUM CHLORIDE 10 MEQ TABCR PO SCH (08:56)
[2020-02-05] MEDS: MAGNESIUM OXIDE 400 MG TAB PO SCH (08:57)
[2020-02-05] MEDS: ACETAMINOPHEN 500 MG TAB PO SCH ×3 (08:57→23:33)
[2020-02-06] MEDS: OXYCODONE HCL IR 5 MG TAB (IMMEDIATE RELEASE) PO PRN (08:14)
[2020-02-06] MEDS: ASCORBIC ACID 500 MG TAB PO SCH ×2 (08:15→20:58)
[2020-02-06] MEDS: SERTRALINE HCL 100 MG TABLET PO SCH (08:15)
[2020-02-06] MEDS: CARBIDOPA/LEVODOPA 25/100MG TAB PO SCH ×3 (08:15→20:58)
[2020-02-06] MEDS: LORazepam 0.5 MG TAB PO SCH ×2 (08:15→20:56)
[2020-02-06] MEDS: FINASTERIDE 5 MG TAB PO SCH (08:16)
[2020-02-06] MEDS: lisinopriL 5 MG TAB PO SCH (08:16)
[2020-02-06] MEDS: PANTOprazole 40 MG TAB PO SCH (08:16)
[2020-02-06] MEDS: ENOXAPARIN 80 MG/0.8 ML SYR SQ SCH ×2 (08:17→21:15)
[2020-02-06] MEDS: ZINC SULFATE 220 MG CAPSULE PO SCH (08:17)
[2020-02-06] MEDS: DOCUSATE SODIUM/SENNA 50/8.6MG TAB PO SCH ×2 (08:35→21:03)
[2020-02-06 08:56] LABS: Hematocrit (blood only) 30.9 % (42-52); Hemoglobin 9.9 g/dL (14.0-18.0); Mean Corpuscular Volume 93.6 fL (80-100); Nucleated RBC # (auto) 0.02 K/uL (0-0); Nucleated RBC % (auto) 0.2 %; Platelet Count 391 K/uL (130-400); RDW Standard Deviation 52.1 fL (36.4-46.3); White Blood Count 8.36 K/uL (4.8-10.8)
--- NOTE | 2020-02-06 09:02 | Hospitalist Progress Note ---
Date of Service February 06, 2020 Assessment & Plan (1) Closed right hip fracture: Fell and suffered intertrochanteric fracture of right hip. Cephalomedullary nailing performed by Dr. Hanna on 01/24. Toe-touch nonweightbearing right lower extremity. Continue PT, OT, analgesics. 25-OH vitamin D level = 85. Wound healing well-elvira still in place. Ortho to do post op check prior to his discharge. (2) COVID-19: No apparent indication for treatment for COVID-19 at this time. Recheck serial SARS-CoV-2 PCR's until negative x 2 to assist with determining isolation needs and discharge planning. Will screen on a q72hr interval. (3) Anemia: stable, no need to transfuse. (4) HTN (hypertension): cont lisinopril per home regimen. (5) Parkinson disease: Continue carbidopa / levodopa per home regimen. (6) Dementia: At baseline mental status. Monitor for delirium. (7) Elevated d-dimer: D-dimer ordered as prognostic indicator for COVID-19. Therapeutic Lovenox was started. (8) DVT prophylaxis: Lovenox Full code Dispo-discharge to rehab once Covid PCR neg x 2 Sheila Rosas DO [facility] Hospitalist Admission and Anticipated Discharge Date Admission Date: January 23, 2020 Subjective doing well no issues at this time tolerating PO pain well controlled with oxycodone. had BM yesterday. Review of Systems Review of Systems: All systems reviewed & are unremarkable except as noted in Subjective Physical Exam Physical Exam: CONSTITUTIONAL: WNWD, vitals as above, generally well- appearing, appears comfortable. EYES: normal conjunctivae, no scleral icterus ENT: external ear and nose normal, MMM NECK: trachea midline RESPIRATORY: clear to auscultation bilaterally, no crackles, rales or wheezes, normal respiratory effort CARDIOVASCULAR: regular rate and rhythm, S1 and 2 heard without murmurs, gallops or rubs, no JVD, no peripheral edema GASTROINTESTINAL: soft, nontender, nondistended MUSCULOSKELETAL: Moves extremities equally. R hip incision closed with elvira that are intact. No surrounding erythema or drainage. SKIN: warm and dry NEUROLOGIC: CN 2-12 grossly intact, normal cognition, normal speech, no gross focal deficits. PSYCHIATRIC: alert cooperative and oriented to person and place and at baseline mental status. Results & Data Results & Data ([facility]) Vital Signs (Past 12 Hours) Vital Signs Temp Pulse Resp BP Pulse Ox 02/06/20 08:15 36.8 C 75 16 94 02/06/20 07:53 36.8 C 78 18 96 02/05/20 23:00 36.8 C 84 18 141/77 H 96 Medications Administered Current Inpatient Medications Acetaminophen (Tylenol) 1,000 mg PO Q8H [facility] Stop: 02/22/20 21:59 Last Admin: 02/05/20 23:33 Dose: 1,000 mg Documented by: Ascorbic Acid (Vitamin C) 500 mg PO BID@799,1999 [facility] Stop: 02/24/20 19:59 Last Admin: 02/06/20 08:15 Dose: 500 mg Documented by: Bisacodyl (Dulcolax) 10 mg RI DAILY PRN PRN Reason: Constipation Stop: 02/22/20 15:48 Carbidopa/Levodopa (Sinemet 25/100 Mg) 1 tab PO TID@0800,1499,1999 [facility] Stop: 02/22/20 19:59 Last Admin: 02/06/20 08:15 Dose: 1 tab Documented by: Enoxaparin Sodium (Lovenox) 80 mg SQ Q12H [facility] Stop: 03/02/20 07:59 Last Admin: 02/06/20 08:17 Dose: 80 mg Documented by: Finasteride (Proscar) 5 mg PO QAM@0800 [facility] Stop: 02/24/20 07:59 Last Admin: 02/06/20 08:16 Dose: 5 mg Documented by: Glycerin (Glycerin Adult) 1 supp RI DAILY PRN PRN Reason: Constipation Stop: 03/01/20 13:58 Lisinopril (Zestril) 5 mg PO DAILY@0800 [facility] Stop: 02/23/20 07:59 Last Admin: 02/06/20 08:16 Dose: 5 mg Documented by: Lorazepam (Ativan) 0.5 mg PO BID@ [facility] Stop: 02/22/20 19:59 Last Admin: 02/06/20 08:15 Dose: 0.5 mg Documented by: Magnesium Hydroxide (Milk Of Magnesia) 30 ml PO DAILY PRN PRN Reason: Constipation Stop: 02/22/20 15:48 Last Admin: 01/30/20 15:12 Dose: 30 ml Documented by: Magnesium Oxide (Mag-Ox) 400 mg PO QAM@0800 [facility] Stop: 02/24/20 12:44 Last Admin: 02/05/20 08:57 Dose: 400 mg Documented by: Naloxone HCl (Narcan) 0.1 mg IV UD PRN PRN Reason: Opioid Overdose Stop: 02/24/20 15:43 Oxycodone HCl (Roxicodone Immediate Rel) 5 mg PO Q4H PRN PRN Reason: MODERATE Pain (Scale 4,5,6) Stop: 02/06/20 15:48 Last Admin: 02/06/20 08:14 Dose: 5 mg Documented by: Pantoprazole Sodium (Protonix) 40 mg PO QDB@0800 [facility] Stop: 02/24/20 07:59 Last Admin: 02/06/20 08:16 Dose: 40 mg Documented by: Polyethylene Glycol (Miralax Powder Packet) 17 gm PO DAILY PRN PRN Reason: Constipation Stop: 02/29/20 22:46 Last Admin: 01/31/20 13:29 Dose: 17 gm Documented by: Potassium Chloride (Klor-Con M10) 10 meq PO DAILY@0800 [facility] Stop: 02/23/20 07:59 Last Admin: 02/05/20 08:56 Dose: 10 meq Documented by: Senna/Docusate Sodium (Senokot S) 1 tab PO BID@0800,1999 [facility] Stop: 02/22/20 19:59 Last Admin: 02/06/20 08:35 Dose: 1 tab Documented by: Sertraline HCl (Zoloft) 100 mg PO QAM@0800 [facility] Stop: 02/24/20 07:59 Last Admin: 02/06/20 08:15 Dose: 100 mg Documented by: Zinc Sulfate (Zinc Sulfate) 220 mg PO QAM@0800 [facility] Stop: 02/24/20 12:44 Last Admin: 02/06/20 08:17 Dose: 220 mg Documented by: (1) Closed right hip fracture Encounter type: initial encounter Qualified Code(s): S72.001A - Fracture of unspecified part of neck of right femur, initial encounter for closed fracture
[2020-02-06 09:17] LABS: BUN Creatinine Ratio 24.9 (10-20); Calcium 8.8 mg/dl (8.5-10.1); Creatinine Clr Calc Pharmacy 110.3 ml/min; Est GFR (African American) 109.8; Est GFR (Non-African American) 94.7; Potassium 4.4 mmol/L (3.5-5.1)
[2020-02-06] MEDS: MAGNESIUM OXIDE 400 MG TAB PO SCH (09:52)
[2020-02-06] MEDS: POTASSIUM CHLORIDE 10 MEQ TABCR PO SCH (09:52)
[2020-02-06] MEDS: ACETAMINOPHEN 500 MG TAB PO SCH ×3 (09:52→23:58)
[2020-02-07] MEDS: FINASTERIDE 5 MG TAB PO SCH (08:57)
[2020-02-07] MEDS: PANTOprazole 40 MG TAB PO SCH (08:57)
[2020-02-07] MEDS: SERTRALINE HCL 100 MG TABLET PO SCH (08:57)
[2020-02-07] MEDS: lisinopriL 5 MG TAB PO SCH (08:57)
[2020-02-07] MEDS: CARBIDOPA/LEVODOPA 25/100MG TAB PO SCH ×3 (08:58→19:57)
[2020-02-07] MEDS: LORazepam 0.5 MG TAB PO SCH ×2 (08:58→19:55)
[2020-02-07] MEDS: ACETAMINOPHEN 500 MG TAB PO SCH ×2 (08:58→16:07)
[2020-02-07] MEDS: MAGNESIUM OXIDE 400 MG TAB PO SCH (08:58)
[2020-02-07] MEDS: DOCUSATE SODIUM/SENNA 50/8.6MG TAB PO SCH ×2 (08:59→20:00)
[2020-02-07] MEDS: POTASSIUM CHLORIDE 10 MEQ TABCR PO SCH (09:00)
[2020-02-07] MEDS: ZINC SULFATE 220 MG CAPSULE PO SCH (09:05)
[2020-02-07] MEDS: ASCORBIC ACID 500 MG TAB PO SCH ×2 (09:05→20:01)
[2020-02-07] MEDS: ENOXAPARIN 80 MG/0.8 ML SYR SQ SCH ×2 (09:26→19:54)
--- NOTE | 2020-02-07 14:28 | Hospitalist Progress Note ---
Date of Service February 07, 2020 Assessment & Plan (1) Closed right hip fracture: Fell and suffered intertrochanteric fracture of right hip. Cephalomedullary nailing performed by Dr. Hanna on 01/24. Toe-touch nonweightbearing right lower extremity. Continue PT, OT, analgesics. Less narcotics as this point and continuing scheduled Tylenol. 25-OH vitamin D level = 85. Wound healing well-elvira still in place. Ortho to do post op check prior to his discharge. (2) COVID-19: No apparent indication for treatment for COVID-19 at this time. Recheck serial SARS-CoV-2 PCR's until negative x 2 to assist with determining isolation needs and discharge planning. Will screen on a q72hr interval. (3) Anemia: stable, no need to transfuse. (4) HTN (hypertension): cont lisinopril per home regimen. (5) Parkinson disease: Continue carbidopa / levodopa per home regimen. (6) Dementia: At baseline mental status. Monitor for delirium. (7) Elevated d-dimer: D-dimer ordered as prognostic indicator for COVID-19. Therapeutic Lovenox was started. (8) DVT prophylaxis: Lovenox Full code Dispo-discharge to rehab once Covid PCR neg x 2 Sheila Rosas DO [facility] Hospitalist Admission and Anticipated Discharge Date Admission Date: January 23, 2020 Subjective doing well tolerating PO and eating well awaiting neg COVID test x 2 pain in hip controlled and he has tapered himself off of the oxycodone Review of Systems Review of Systems: All systems reviewed & are unremarkable except as noted in Subjective Physical Exam Physical Exam: CONSTITUTIONAL: WNWD, vitals as above, generally well- appearing, appears comfortable. EYES: normal conjunctivae, no scleral icterus ENT: external ear and nose normal, MMM NECK: trachea midline RESPIRATORY: clear to auscultation bilaterally, no crackles, rales or wheezes, normal respiratory effort CARDIOVASCULAR: regular rate and rhythm, S1 and 2 heard without murmurs, ga llops or rubs, no JVD, no peripheral edema GASTROINTESTINAL: soft, nontender, nondistended MUSCULOSKELETAL: Moves extremities equally. R hip incision closed with elvira that are intact. No surrounding erythema or drainage. SKIN: warm and dry NEUROLOGIC: CN 2-12 grossly intact, normal cognition, normal speech, no gross focal deficits. PSYCHIATRIC: alert cooperative and oriented to person and place and at baseline mental status. Results & Data Results & Data ([facility]) Vital Signs (Past 12 Hours) Vital Signs Temp Pulse Pulse Resp BP Pulse Ox 02/07/20 10:55 36.6 C 18 102/57 L 96 02/07/20 08:55 36.7 C 82 82 18 125/79 96 Medications Administered Current Inpatient Medications Acetaminophen (Tylenol) 1,000 mg PO Q8H [facility] Stop: 02/22/20 21:59 Last Admin: 02/07/20 08:58 Dose: 1,000 mg Documented by: Ascorbic Acid (Vitamin C) 500 mg PO BID@ [facility] Stop: 02/24/20 19:59 Last Admin: 02/07/20 09:05 Dose: 500 mg Documented by: Bisacodyl (Dulcolax) 10 mg [place] DAILY PRN PRN Reason: Constipation Stop: 02/22/20 15:48 Carbidopa/Levodopa (Sinemet 25/100 Mg) 1 tab PO TID@0800,1499,1999 [facility] Stop: 02/22/20 19:59 Last Admin: 02/07/20 08:58 Dose: 1 tab Documented by: Enoxaparin Sodium (Lovenox) 80 mg SQ Q12H [facility] Stop: 03/02/20 07:59 Last Admin: 02/07/20 09:26 Dose: 80 mg Documented by: Finasteride (Proscar) 5 mg PO QAM@0800 [facility] Stop: 02/24/20 07:59 Last Admin: 02/07/20 08:57 Dose: 5 mg Documented by: Glycerin (Glycerin Adult) 1 supp OR DAILY PRN PRN Reason: Constipation Stop: 03/01/20 13:58 Lisinopril (Zestril) 5 mg PO DAILY@0800 [facility] Stop: 02/23/20 07:59 Last Admin: 02/07/20 08:57 Dose: 5 mg Documented by: Lorazepam (Ativan) 0.5 mg PO BID@799,1999 [facility] Stop: 02/22/20 19:59 Last Admin: 02/07/20 08:58 Dose: 0.5 mg Documented by: Magnesium Hydroxide (Milk Of Magnesia) 30 ml PO DAILY PRN PRN Reason: Constipation Stop: 02/22/20 15:48 Last Admin: 01/30/20 15:12 Dose: 30 ml Documented by: Magnesium Oxide (Mag-Ox) 400 mg PO QAM@0800 [facility] Stop: 02/24/20 12:44 Last Admin: 02/07/20 08:58 Dose: 400 mg Documented by: Naloxone HCl (Narcan) 0.1 mg IV UD PRN PRN Reason: Opioid Overdose Stop: 02/24/20 15:43 Pantoprazole Sodium (Protonix) 40 mg PO QDB@0800 [facility] Stop: 02/24/20 07:59 Last Admin: 02/07/20 08:57 Dose: 40 mg Documented by: Polyethylene Glycol (Miralax Powder Packet) 17 gm PO DAILY PRN PRN Reason: Constipation Stop: 02/29/20 22:46 Last Admin: 01/31/20 13:29 Dose: 17 gm Documented by: Potassium Chloride (Klor-Con M10) 10 meq PO DAILY@0800 [facility] Stop: 02/23/20 07:59 Last Admin: 02/07/20 09:00 Dose: 10 meq Documented by: Senna/Docusate Sodium (Senokot S) 1 tab PO BID@0800,1999 [facility] Stop: 02/22/20 19:59 Last Admin: 02/07/20 08:59 Dose: 1 tab Documented by: Sertraline HCl (Zoloft) 100 mg PO QAM@0800 [facility] Stop: 02/24/20 07:59 Last Admin: 02/07/20 08:57 Dose: 100 mg Documented by: Zinc Sulfate (Zinc Sulfate) 220 mg PO QAM@0800 [facility] Stop: 02/24/20 12:44 Last Admin: 02/07/20 09:05 Dose: 220 mg Documented by: (1) Closed right hip fracture Encounter type: initial encounter Qualified Code(s): S72.001A - Fracture of unspecified part of neck of right femur, initial encounter for closed fracture
[2020-02-08] MEDS: ACETAMINOPHEN 500 MG TAB PO SCH ×4 (00:20→23:36)
[2020-02-08] MEDS: MAGNESIUM OXIDE 400 MG TAB PO SCH (07:38)
[2020-02-08] MEDS: DOCUSATE SODIUM/SENNA 50/8.6MG TAB PO SCH ×2 (07:38→21:14)
[2020-02-08] MEDS: FINASTERIDE 5 MG TAB PO SCH (07:39)
[2020-02-08] MEDS: ZINC SULFATE 220 MG CAPSULE PO SCH (07:39)
[2020-02-08] MEDS: LORazepam 0.5 MG TAB PO SCH ×2 (07:39→21:03)
[2020-02-08] MEDS: lisinopriL 5 MG TAB PO SCH (07:39)
[2020-02-08] MEDS: PANTOprazole 40 MG TAB PO SCH (07:39)
[2020-02-08] MEDS: CARBIDOPA/LEVODOPA 25/100MG TAB PO SCH ×3 (07:39→21:03)
[2020-02-08] MEDS: SERTRALINE HCL 100 MG TABLET PO SCH (07:39)
[2020-02-08] MEDS: ASCORBIC ACID 500 MG TAB PO SCH ×2 (07:40→21:04)
[2020-02-08] MEDS: ENOXAPARIN 80 MG/0.8 ML SYR SQ SCH ×2 (07:41→21:05)
--- NOTE | 2020-02-08 09:38 | Hospitalist Progress Note ---
Date of Service February 08, 2020 Assessment & Plan (1) Closed right hip fracture: Fell and suffered intertrochanteric fracture of right hip. Cephalomedullary nailing performed by Dr. Hanna on 01/24. Toe-touch nonweightbearing right lower extremity. Continue PT, OT, analgesics. Less narcotics as this point and continuing scheduled Tylenol. 25-OH vitamin D level = 85. Wound healing well-elvira still in place. Ortho to do post op check prior to his discharge. (2) COVID-19: No apparent indication for treatment for COVID-19 at this time. Recheck serial SARS-CoV-2 PCR's until negative x 2 to assist with determining isolation needs and discharge planning. Will screen on a q72hr interval. (3) Anemia: stable, no need to transfuse. (4) HTN (hypertension): cont lisinopril per home regimen. (5) Parkinson disease: Continue carbidopa / levodopa per home regimen. (6) Dementia: At baseline mental status. Monitor for delirium. (7) Elevated d-dimer: D-dimer ordered as prognostic indicator for COVID-19. Therapeutic Lovenox was started. (8) DVT prophylaxis: Lovenox Full code Dispo-discharge to rehab once Covid PCR neg x 2 Sheila Rosas DO [facility] Hospitalist Admission and Anticipated Discharge Date Admission Date: January 23, 2020 Subjective doing well some pain that is not controlled by APAP. Encouraged to use narcotics as needed. Tolerating PO Review of Systems Review of Systems: All systems reviewed & are unremarkable except as noted in Subjective Physical Exam Physical Exam: CONSTITUTIONAL: WNWD, vitals as above, generally well- appearing, appears comfortable. EYES: normal conjunctivae, no scleral icterus ENT: external ear and nose normal, MMM NECK: trachea midline RESPIRATORY: clear to auscultation bilaterally, no crackles, rales or wheezes, normal respiratory effort CARDIOVASCULAR: regular rate and rhythm, S1 and 2 heard without murmurs, gallops or rubs, no JVD, no peripheral edema GASTROINTESTINAL: soft, nontender, nondistended MUSCULOSKELETAL: Moves extremities equally. R hip incision closed with elvira that are intact. No surrounding erythema or drainage. SKIN: warm and dry NEUROLOGIC: CN 2-12 grossly intact, normal cognition, normal speech, no gross focal deficits. PSYCHIATRIC: alert cooperative and oriented to person and place and at baseline mental status. Results & Data Results & Data ([facility]) Vital Signs (Past 12 Hours) Vital Signs Temp Pulse Resp BP Pulse Ox 02/08/20 07:58 37.1 C 75 18 144/65 H 94 02/08/20 00:14 37 C 76 20 113/56 L 96 Medications Administered Current Inpatient Medications Acetaminophen (Tylenol) 1,000 mg PO Q8H [facility] Stop: 02/22/20 21:59 Last Admin: 02/08/20 07:38 Dose: 1,000 mg Documented by: Ascorbic Acid (Vitamin C) 500 mg PO BID@799,1999 [facility] Stop: 02/24/20 19:59 Last Admin: 02/08/20 07:40 Dose: 500 mg Documented by: Bisacodyl (Dulcolax) 10 mg [place] DAILY PRN PRN Reason: Constipation Stop: 02/22/20 15:48 Carbidopa/Levodopa (Sinemet 25/100 Mg) 1 tab PO TID@0800,1499,1999 [facility] Stop: 02/22/20 19:59 Last Admin: 02/08/20 07:39 Dose: 1 tab Documented by: Enoxaparin Sodium (Lovenox) 80 mg SQ Q12H [facility] Stop: 03/02/20 07:59 Last Admin: 02/08/20 07:41 Dose: 80 mg Documented by: Finasteride (Proscar) 5 mg PO QAM@0800 [facility] Stop: 02/24/20 07:59 Last Admin: 02/08/20 07:39 Dose: 5 mg Documented by: Glycerin (Glycerin Adult) 1 supp [place] DAILY PRN PRN Reason: Constipation Stop: 03/01/20 13:58 Lisinopril (Zestril) 5 mg PO DAILY@0800 [facility] Stop: 02/23/20 07:59 Last Admin: 02/08/20 07:39 Dose: 5 mg Documented by: Lorazepam (Ativan) 0.5 mg PO BID@ [facility] Stop: 02/22/20 19:59 Last Admin: 02/08/20 07:39 Dose: 0.5 mg Documented by: Magnesium Hydroxide (Milk Of Magnesia) 30 ml PO DAILY PRN PRN Reason: Constipation Stop: 02/22/20 15:48 Last Admin: 01/30/20 15:12 Dose: 30 ml Documented by: Magnesium Oxide (Mag-Ox) 400 mg PO QAM@0800 [facility] Stop: 02/24/20 12:44 Last Admin: 02/08/20 07:38 Dose: 400 mg Documented by: Naloxone HCl (Narcan) 0.1 mg IV UD PRN PRN Reason: Opioid Overdose Stop: 02/24/20 15:43 Pantoprazole Sodium (Protonix) 40 mg PO QDB@0800 [facility] Stop: 02/24/20 07:59 Last Admin: 02/08/20 07:39 Dose: 40 mg Documented by: Polyethylene Glycol (Miralax Powder Packet) 17 gm PO DAILY PRN PRN Reason: Constipation Stop: 02/29/20 22:46 Last Admin: 01/31/20 13:29 Dose: 17 gm Documented by: Potassium Chloride (Klor-Con M10) 10 meq PO DAILY@0800 [facility] Stop: 02/23/20 07:59 Last Admin: 02/07/20 09:00 Dose: 10 meq Documented by: Senna/Docusate Sodium (Senokot S) 1 tab PO BID@0800,1999 [facility] Stop: 02/22/20 19:59 Last Admin: 02/08/20 07:38 Dose: 1 tab Documented by: Sertraline HCl (Zoloft) 100 mg PO QAM@0800 [facility] Stop: 02/24/20 07:59 Last Admin: 02/08/20 07:39 Dose: 100 mg Documented by: Zinc Sulfate (Zinc Sulfate) 220 mg PO QAM@0800 [facility] Stop: 02/24/20 12:44 Last Admin: 02/08/20 07:39 Dose: 220 mg Documented by: (1) Closed right hip fracture Encounter type: initial encounter Qualified Code(s): S72.001A - Fracture of unspecified part of neck of right femur, initial encounter for closed fracture
[2020-02-08] MEDS: POTASSIUM CHLORIDE 10 MEQ TABCR PO SCH (09:41)
[2020-02-09 07:05] LABS: Creatinine Clr Calc Pharmacy 117.2 ml/min; Est GFR (African American) 112.6; Est GFR (Non-African American) 97.1
[2020-02-09] MEDS: ACETAMINOPHEN 500 MG TAB PO SCH ×3 (09:07→23:44)
[2020-02-09] MEDS: ZINC SULFATE 220 MG CAPSULE PO SCH (09:08)
[2020-02-09] MEDS: PANTOprazole 40 MG TAB PO SCH (09:08)
[2020-02-09] MEDS: CARBIDOPA/LEVODOPA 25/100MG TAB PO SCH ×3 (09:08→20:04)
[2020-02-09] MEDS: SERTRALINE HCL 100 MG TABLET PO SCH (09:08)
[2020-02-09] MEDS: lisinopriL 5 MG TAB PO SCH (09:09)
[2020-02-09] MEDS: FINASTERIDE 5 MG TAB PO SCH (09:09)
[2020-02-09] MEDS: ASCORBIC ACID 500 MG TAB PO SCH ×2 (09:09→20:04)
[2020-02-09] MEDS: ENOXAPARIN 80 MG/0.8 ML SYR SQ SCH ×2 (09:10→20:04)
[2020-02-09] MEDS: LORazepam 0.5 MG TAB PO SCH ×2 (09:11→20:04)
[2020-02-09] MEDS: DOCUSATE SODIUM/SENNA 50/8.6MG TAB PO SCH ×2 (09:15→20:55)
[2020-02-09] MEDS: MAGNESIUM OXIDE 400 MG TAB PO SCH (09:15)
[2020-02-09] MEDS: POTASSIUM CHLORIDE 10 MEQ TABCR PO SCH (09:26)
--- NOTE | 2020-02-09 10:44 | Hospitalist Progress Note ---
Date of Service February 09, 2020 Assessment & Plan (1) Closed right hip fracture: Fell and suffered intertrochanteric fracture of right hip. Cephalomedullary nailing performed by Dr. Hanna on 01/24. Toe-touch nonweightbearing right lower extremity. Continue PT, OT, analgesics. Less narcotics as this point and continuing scheduled Tylenol. 25-OH vitamin D level = 85. Wound healing well-elvira still in place. Ortho to do post op check prior to his discharge. (2) COVID-19: No apparent indication for treatment for COVID-19 at this time. Recheck serial SARS-CoV-2 PCR's until negative x 2 to assist with determining isolation needs and discharge planning. Will screen on a q72hr interval. (3) Anemia: stable, no need to transfuse. (4) HTN (hypertension): At goal. Cont lisinopril per home regimen. (5) Parkinson disease: Continue carbidopa / levodopa per home regimen. (6) Dementia: At baseline mental status. Monitor for delirium. (7) Elevated d-dimer: D-dimer ordered as prognostic indicator for COVID-19. Therapeutic Lovenox was started. (8) DVT prophylaxis: Lovenox Full code Dispo-discharge to rehab once Covid PCR neg x 2 Sheila Rosas DO [facility] Hospitalist Admission and Anticipated Discharge Date Admission Date: January 23, 2020 Subjective pt feeling well reports pain is 2/10 states he would like to continue with the scheduled Tylenol. Tolerating PO Reached out to Ortho for wound check as he is 15 days post op. Review of Systems Review of Systems: All systems reviewed & are unremarkable except as noted in Subjective Physical Exam Physical Exam: CONSTITUTIONAL: WNWD, vitals as above, generally well- appearing, appears comfortable. EYES: normal conjunctivae, no scleral icterus ENT: external ear and nose normal, MMM NECK: trachea midline RESPIRATORY: clear to auscultation bilaterally, no crackles, rales or wheezes, normal respiratory effort CARDIOVASCULAR: regular rate and rhythm, S1 and 2 heard without murmurs, gallops or rubs, no JVD, no peripheral edema GASTROINTESTINAL: soft, nontender, nondistended MUSCULOSKELETAL: Moves extremities equally. R hip incision closed with elvira that are intact. No surrounding erythema or drainage. SKIN: warm and dry NEUROLOGIC: CN 2-12 grossly intact, normal cognition, normal speech, no gross focal deficits. PSYCHIATRIC: alert cooperative and oriented to person and place and at baseline mental status. Results & Data Results & Data ([facility]) Vital Signs (Past 12 Hours) Vital Signs Temp Pulse Pulse Resp BP Pulse Ox 02/09/20 07:45 36.6 C 73 16 132/78 96 02/09/20 00:00 36.8 C 68 18 130/67 94 Laboratory Results BMP 02/09/20 05:50 Creatinine 0.64 Medications Administered Current Inpatient Medications Acetaminophen (Tylenol) 1,000 mg PO Q8H [facility] Stop: 02/22/20 21:59 Last Admin: 02/09/20 09:07 Dose: 1,000 mg Documented by: Ascorbic Acid (Vitamin C) 500 mg PO BID@ [facility] Stop: 02/24/20 19:59 Last Admin: 02/09/20 09:09 Dose: 500 mg Documented by: Bisacodyl (Dulcolax) 10 mg [place] DAILY PRN PRN Reason: Constipation Stop: 02/22/20 15:48 Carbidopa/Levodopa (Sinemet 25/100 Mg) 1 tab PO TID@0800,1499,1999 [facility] Stop: 02/22/20 19:59 Last Admin: 02/09/20 09:08 Dose: 1 tab Documented by: Enoxaparin Sodium (Lovenox) 80 mg SQ Q12H [facility] Stop: 03/02/20 07:59 Last Admin: 02/09/20 09:10 Dose: 80 mg Documented by: Finasteride (Proscar) 5 mg PO QAM@0800 [facility] Stop: 02/24/20 07:59 Last Admin: 02/09/20 09:09 Dose: 5 mg Documented by: Glycerin (Glycerin Adult) 1 supp [place] DAILY PRN PRN Reason: Constipation Stop: 03/01/20 13:58 Lisinopril (Zestril) 5 mg PO DAILY@0800 [facility] Stop: 02/23/20 07:59 Last Admin: 02/09/20 09:09 Dose: 5 mg Documented by: Lorazepam (Ativan) 0.5 mg PO BID@ [facility] Stop: 02/22/20 19:59 Last Admin: 02/09/20 09:11 Dose: 0.5 mg Documented by: Magnesium Hydroxide (Milk Of Magnesia) 30 ml PO DAILY PRN PRN Reason: Constipation Stop: 02/22/20 15:48 Last Admin: 01/30/20 15:12 Dose: 30 ml Documented by: Magnesium Oxide (Mag-Ox) 400 mg PO QAM@0800 [facility] Stop: 02/24/20 12:44 Last Admin: 02/09/20 09:15 Dose: 400 mg Documented by: Naloxone HCl (Narcan) 0.1 mg IV UD PRN PRN Reason: Opioid Overdose Stop: 02/24/20 15:43 Pantoprazole Sodium (Protonix) 40 mg PO QDB@0800 [facility] Stop: 02/24/20 07:59 Last Admin: 02/09/20 09:08 Dose: 40 mg Documented by: Polyethylene Glycol (Miralax Powder Packet) 17 gm PO DAILY PRN PRN Reason: Constipation Stop: 02/29/20 22:46 Last Admin: 01/31/20 13:29 Dose: 17 gm Documented by: Potassium Chloride (Klor-Con M10) 10 meq PO DAILY@0800 [facility] Stop: 02/23/20 07:59 Last Admin: 02/09/20 09:26 Dose: 10 meq Documented by: Senna/Docusate Sodium (Senokot S) 1 tab PO BID@08,1999 [facility] Stop: 02/22/20 19:59 Last Admin: 02/09/20 09:15 Dose: 1 tab Documented by: Sertraline HCl (Zoloft) 100 mg PO QAM@0800 [facility] Stop: 02/24/20 07:59 Last Admin: 02/09/20 09:08 Dose: 100 mg Documented by: Zinc Sulfate (Zinc Sulfate) 220 mg PO QAM@0800 [facility] Stop: 02/24/20 12:44 Last Admin: 02/09/20 09:08 Dose: 220 mg Documented by: (1) Closed right hip fracture Encounter type: initial encounter Qualified Code(s): S72.001A - Fracture of unspecified part of neck of right femur, initial encounter for closed fracture
[2020-02-10] MEDS: TRAMADOL HCL 50 MG TABLET PO PRN ×2 (02:23→11:31)
[2020-02-10] MEDS: FINASTERIDE 5 MG TAB PO SCH (08:07)
[2020-02-10] MEDS: LORazepam 0.5 MG TAB PO SCH ×2 (08:07→19:51)
[2020-02-10] MEDS: DOCUSATE SODIUM/SENNA 50/8.6MG TAB PO SCH ×2 (08:07→19:52)
[2020-02-10] MEDS: ACETAMINOPHEN 500 MG TAB PO SCH ×3 (08:07→23:13)
[2020-02-10] MEDS: POTASSIUM CHLORIDE 10 MEQ TABCR PO SCH (08:07)
[2020-02-10] MEDS: ZINC SULFATE 220 MG CAPSULE PO SCH (08:08)
[2020-02-10] MEDS: ASCORBIC ACID 500 MG TAB PO SCH ×2 (08:08→19:52)
[2020-02-10] MEDS: lisinopriL 5 MG TAB PO SCH (08:08)
[2020-02-10] MEDS: SERTRALINE HCL 100 MG TABLET PO SCH (08:08)
[2020-02-10] MEDS: PANTOprazole 40 MG TAB PO SCH (08:08)
[2020-02-10] MEDS: ENOXAPARIN 80 MG/0.8 ML SYR SQ SCH ×2 (08:09→19:51)
[2020-02-10] MEDS: CARBIDOPA/LEVODOPA 25/100MG TAB PO SCH ×3 (08:09→19:52)
[2020-02-10] MEDS: MAGNESIUM OXIDE 400 MG TAB PO SCH (08:10)
[2020-02-10] MEDS: MAGNESIUM HYDROXIDE SUSP 30 ML UDC PO PRN (15:00)
--- NOTE | 2020-02-10 19:51 | Hospitalist Progress Note ---
Date of Service February 10, 2020 Assessment & Plan (1) Closed right hip fracture: Fell and suffered intertrochanteric fracture of right hip. Cephalomedullary nailing performed by Dr. Hanna on 01/24. Toe-touch nonweightbearing right lower extremity. Continue PT, OT, analgesics. Less narcotics as this point and continuing scheduled Tylenol. 25-OH vitamin D level = 85. Wound healing well-elvira still in place. Ortho to do post op check prior to his discharge. Per my phone call with transitional care liaison Ortho, and where aware he is till here with elvira still in place. (2) COVID-19: No apparent indication for treatment for COVID-19 at this time. Recheck serial SARS-CoV-2 PCR's until negative x 2 to assist with determining isolation needs and discharge planning. Will screen on a q72hr interval. (3) Anemia: stable, no need to transfuse. (4) HTN (hypertension): At goal. Cont lisinopril per home regimen. (5) Parkinson disease: Continue carbidopa / levodopa per home regimen. (6) Dementia: At baseline mental status. Monitor for delirium. (7) Elevated d-dimer: D-dimer ordered as prognostic indicator for COVID-19. Therapeutic Lovenox was started. (8) DVT prophylaxis: Lovenox Full code Dispo-discharge to rehab once Covid PCR neg x 2 [facility] Ad[facility] and Anticipated Discharge Date Admission Date: January 23, 2020 Subjective denies pain tolerating PO Oriented. Apathetic to food. Review of Systems Review of Systems: All systems reviewed & are unremarkable except as noted in Subjective Physical Exam Physical Exam: CONSTITUTIONAL: WNWD, vitals as above, generally well- appearing, appears comfortable. EYES: normal conjunctivae, no scleral icterus ENT: external ear and nose normal, MMM NECK: trachea midline RESPIRATORY: clear to auscultation bilaterally, no crackles, rales or wheezes, normal respiratory effort CARDIOVASCULAR: regular rate and rhythm, S1 and 2 heard without murmurs, gallops or rubs, no JVD, no peripheral edema GASTROINTESTINAL: soft, nontender, nondistended MUSCULOSKELETAL: Moves extremities equally. R hip incision closed with elvira that are intact. No surrounding erythema or drainage. SKIN: warm and dry NEUROLOGIC: CN 2-12 grossly intact, normal cognition, normal speech, no gross focal deficits. PSYCHIATRIC: alert cooperative and oriented to person and place and at baseline mental status. Results & Data Results & Data ([facility]) Vital Signs (Past 12 Hours) Vital Signs Temp Pulse Resp BP Pulse Ox 02/10/20 15:33 36.8 C 76 16 104/68 98 Medications Administered Current Inpatient Medications Acetaminophen (Tylenol) 1,000 mg PO Q8H [facility] Stop: 02/22/20 21:59 Last Admin: 02/10/20 15:45 Dose: 1,000 mg Documented by: Ascorbic Acid (Vitamin C) 500 mg PO BID@799,1999 [facility] Stop: 02/24/20 19:59 Last Admin: 02/10/20 08:08 Dose: 500 mg Documented by: Bisacodyl (Dulcolax) 10 mg [place] DAILY PRN PRN Reason: Constipation Stop: 02/22/20 15:48 Carbidopa/Levodopa (Sinemet 25/100 Mg) 1 tab PO TID@0800,1499,1999 [facility] Stop: 02/22/20 19:59 Last Admin: 02/10/20 14:58 Dose: 1 tab Documented by: Enoxaparin Sodium (Lovenox) 80 mg SQ Q12H [facility] Stop: 03/02/20 07:59 Last Admin: 02/10/20 08:09 Dose: 80 mg Documented by: Finasteride (Proscar) 5 mg PO QAM@0800 [facility] Stop: 02/24/20 07:59 Last Admin: 02/10/20 08:07 Dose: 5 mg Documented by: Glycerin (Glycerin Adult) 1 supp [place] DAILY PRN PRN Reason: Constipation Stop: 03/01/20 13:58 Lisinopril (Zestril) 5 mg PO DAILY@0800 [facility] Stop: 02/23/20 07:59 Last Admin: 02/10/20 08:08 Dose: 5 mg Documented by: Lorazepam (Ativan) 0.5 mg PO BID@ [facility] Stop: 02/22/20 19:59 Last Admin: 02/10/20 08:07 Dose: 0.5 mg Documented by: Magnesium Hydroxide (Milk Of Magnesia) 30 ml PO DAILY PRN PRN Reason: Constipation Stop: 02/22/20 15:48 Last Admin: 02/10/20 15:00 Dose: 30 ml Documented by: Magnesium Oxide (Mag-Ox) 400 mg PO QAM@0800 [facility] Stop: 02/24/20 12:44 Last Admin: 02/10/20 08:10 Dose: 400 mg Documented by: Naloxone HCl (Narcan) 0.1 mg IV UD PRN PRN Reason: Opioid Overdose Stop: 02/24/20 15:43 Pantoprazole Sodium (Protonix) 40 mg PO QDB@0800 [facility] Stop: 02/24/20 07:59 Last Admin: 02/10/20 08:08 Dose: 40 mg Documented by: Polyethylene Glycol (Miralax Powder Packet) 17 gm PO DAILY PRN PRN Reason: Constipation Stop: 02/29/20 22:46 Last Admin: 01/31/20 13:29 Dose: 17 gm Documented by: Potassium Chloride (Klor-Con M10) 10 meq PO DAILY@0800 [facility] Stop: 02/23/20 07:59 Last Admin: 02/10/20 08:07 Dose: 10 meq Documented by: Senna/Docusate Sodium (Senokot S) 1 tab PO BID@0800,1999 [facility] Stop: 02/22/20 19:59 Last Admin: 02/10/20 08:07 Dose: 1 tab Documented by: Sertraline HCl (Zoloft) 100 mg PO QAM@0800 [facility] Stop: 02/24/20 07:59 Last Admin: 02/10/20 08:08 Dose: 100 mg Documented by: Tramadol HCl (Ultram) 25 - 50 mg PO Q4H PRN PRN Reason: Pain Stop: 03/11/20 02:13 Last Admin: 02/10/20 11:31 Dose: 50 mg Documented by: Zinc Sulfate (Zinc Sulfate) 220 mg PO QAM@0800 [facility] Stop: 02/24/20 12:44 Last Admin: 02/10/20 08:08 Dose: 220 mg Documented by: (1) Closed right hip fracture Encounter type: initial encounter Qualified Code(s): S72.001A - Fracture of unspecified part of neck of right femur, initial encounter for closed fracture
[2020-02-11] MEDS: ZINC SULFATE 220 MG CAPSULE PO SCH (08:27)
[2020-02-11] MEDS: PANTOprazole 40 MG TAB PO SCH (08:27)
[2020-02-11] MEDS: SERTRALINE HCL 100 MG TABLET PO SCH (08:27)
[2020-02-11] MEDS: ASCORBIC ACID 500 MG TAB PO SCH ×2 (08:27→19:38)
[2020-02-11] MEDS: FINASTERIDE 5 MG TAB PO SCH (08:28)
[2020-02-11] MEDS: CARBIDOPA/LEVODOPA 25/100MG TAB PO SCH ×3 (08:28→19:38)
[2020-02-11] MEDS: lisinopriL 5 MG TAB PO SCH (08:28)
[2020-02-11] MEDS: ENOXAPARIN 80 MG/0.8 ML SYR SQ SCH ×2 (08:29→19:38)
[2020-02-11] MEDS: POTASSIUM CHLORIDE 10 MEQ TABCR PO SCH (08:34)
[2020-02-11] MEDS: LORazepam 0.5 MG TAB PO SCH ×2 (08:34→19:38)
[2020-02-11] MEDS: MAGNESIUM OXIDE 400 MG TAB PO SCH (08:34)
[2020-02-11] MEDS: ACETAMINOPHEN 500 MG TAB PO SCH ×3 (08:34→23:46)
[2020-02-11] MEDS: DOCUSATE SODIUM/SENNA 50/8.6MG TAB PO SCH ×2 (08:38→19:39)
--- NOTE | 2020-02-11 21:04 | Hospitalist Progress Note ---
Date of Service February 11, 2020 Assessment & Plan (1) Closed right hip fracture: Fell and suffered intertrochanteric fracture of right hip. Cephalomedullary nailing performed by Dr. Hanna on 01/24. Toe-touch nonweightbearing right lower extremity. Continue PT, OT, analgesics. 25-OH vitamin D level = 85. (2) COVID-19: No fever, cough, SOB, hypoxia at time of admission. Tested for COVID-19 due to other cases at his personal care facility. SARS-CoV-2 PCR nasopharyngeal swab positive on 01/22. Weakness from COVID-19 may have contributed to fall and hip fracture. Low grade temp of 37.6 01/26- could have been secondary to COVID-19, but could also be secondary to hip fracture. No apparent indication for treatment for COVID-19 at this time. Recheck serial SARS-CoV-2 PCR's until negative x 2 to assist with determining isolation needs and discharge planning. (3) Anemia: Hgb 13.7 preop --> 9.4 --> 8.3. Probable acute blood loss anemia secondary to hip fracture +/- hemodilution from IV fluids. No gross GI bleeding. Hgb 9.9 on 02/05. No indication for transfusion at this time. Follow. (4) HTN (hypertension): Hemodynamically stable. Continue lisinopril. (5) Parkinson disease: Continue carbidopa / levodopa. (6) Dementia: Monitor for delirium. (7) Constipation: Bowel regimen as ordered. (8) Elevated d-dimer: D-dimer ordered as prognostic indicator for COVID-19. It was elevated (5290). Elevated D-dimer not unexpected with hip fracture and repair. No signs or symptoms of DVT or pulmonary embolism (Wells scores for both low). But... at increased risk for VTE due to combination of hip fracture and repair, ongoing relative immobility due to Parkinson's disease, and COVID-19. Therefore, SQ enoxaparin to therapeutic dosing. Check venous duplex lower extremities to guide anticoagulation strategy once repeat SARS-CoV-2 negative x 2. (9) DVT prophylaxis: SQ enoxaparin as discussed above. Ambulate as able. (10) Discharge planning issues: Discharge disposition to be determined- possibilities include return to [facility] with PT/OT vs transfer to skilled care or inpt rehab. Check serial SARS-CoV-2 PCR's until negative x 2 to assist with discharge planning. Ortho follow-up with Dr. Hanna. Medical follow-up with Dr. Gutierrez. Admission and Anticipated Discharge Date Admission Date: January 23, 2020 Subjective Recheck for hip fracture, COVID-19, and other problems. Patient seen in their room around 1400. No fever. Minimal cough. No SOB. Less postop pain. Review of Systems: Constitutional- as noted above. Cardiac- no chest pain. Pulmonary- as noted above. GI- constipated; no nausea, vomiting, diarrhea, melena, hematochezia. - chronic urinary incontinence, no dysuria. Otherwise, as noted above. Physical Exam Constitutional: no acute distress Respiratory: no respiratory distress Auscultation: lungs clear to auscultation bilaterally Cardiovascular: Rate/Rhythm: regular rate and regular rhythm Heart Sounds: no gallop and no cardiac rub Vessels: no JVD Extremities: no calf tenderness and no edema Gastrointestinal (Abdomen): normal bowel sounds, soft, nontender, no hepatosplenomegaly Musculoskeletal: Extremities: + extremities abnormal to inspection (right hip incisions stapled, no erythema or drainage) and no cyanosis Skin: no rashes, warm and dry Psychiatric: Orientation: alert; + not oriented x 3 (mild-moderate confusion) Results & Data Results & Data ([facility]) Vital Signs (Past 12 Hours) Vital Signs Temp Pulse Resp BP Pulse Ox 02/11/20 15:25 36.7 C 82 16 106/63 95 (1) Closed right hip fracture Encounter type: initial encounter Qualified Code(s): S72.001A - Fracture of unspecified part of neck of right femur, initial encounter for closed fracture
[2020-02-12 06:24] LABS: Hematocrit (blood only) 32.6 % (42-52); Hemoglobin 10.4 g/dL (14.0-18.0); Mean Corpuscular Hemoglobin 30.1 pg (25-34); Mean Corpuscular Hgb Conc 31.9 g/dL (32-36); Mean Corpuscular Volume 94.5 fL (80-100); Mean Platelet Volume 9.2 fL (7.4-10.4); Platelet Count 347 K/uL (130-400); RDW Coefficient of Variation 16.4 % (11.5-14.5); Red Blood Count 3.45 M/uL (4.7-6.1); White Blood Count 5.85 K/uL (4.8-10.8)
[2020-02-12 06:55] LABS: BUN Creatinine Ratio 24.9 (10-20); Calcium 8.7 mg/dl (8.5-10.1); Creatinine Clr Calc Pharmacy 107.1 ml/min; Est GFR (African American) 108.5; Est GFR (Non-African American) 93.6; Potassium 4.1 mmol/L (3.5-5.1)
[2020-02-12] MEDS: ASCORBIC ACID 500 MG TAB PO SCH ×2 (08:50→19:31)
[2020-02-12] MEDS: LORazepam 0.5 MG TAB PO SCH ×2 (08:50→19:29)
[2020-02-12] MEDS: CARBIDOPA/LEVODOPA 25/100MG TAB PO SCH ×3 (08:50→19:31)
[2020-02-12] MEDS: FINASTERIDE 5 MG TAB PO SCH (08:51)
[2020-02-12] MEDS: PANTOprazole 40 MG TAB PO SCH (08:51)
[2020-02-12] MEDS: SERTRALINE HCL 100 MG TABLET PO SCH (08:51)
[2020-02-12] MEDS: lisinopriL 5 MG TAB PO SCH (08:51)
[2020-02-12] MEDS: ZINC SULFATE 220 MG CAPSULE PO SCH (08:51)
[2020-02-12] MEDS: ENOXAPARIN 80 MG/0.8 ML SYR SQ SCH ×2 (08:52→19:30)
[2020-02-12] MEDS: MAGNESIUM OXIDE 400 MG TAB PO SCH (08:55)
[2020-02-12] MEDS: DOCUSATE SODIUM/SENNA 50/8.6MG TAB PO SCH ×2 (08:56→19:33)
[2020-02-12] MEDS: ACETAMINOPHEN 500 MG TAB PO SCH ×3 (08:56→23:29)
[2020-02-12] MEDS: POTASSIUM CHLORIDE 10 MEQ TABCR PO SCH (08:56)
[2020-02-12] MEDS: TRAMADOL HCL 50 MG TABLET PO PRN (19:29)
--- NOTE | 2020-02-12 21:15 | Hospitalist Progress Note ---
Date of Service February 12, 2020 Assessment & Plan (1) Closed right hip fracture: Fell and suffered intertrochanteric fracture of right hip. Cephalomedullary nailing performed by Dr. Hanna on 01/24. Toe-touch nonweightbearing right lower extremity. Continue PT, OT, analgesics. 25-OH vitamin D level = 85. (2) COVID-19: No fever, cough, SOB, hypoxia at time of admission. Tested for COVID-19 due to other cases at his personal care facility. SARS-CoV-2 PCR nasopharyngeal swab positive on 01/22. Weakness from COVID-19 may have contributed to fall and hip fracture. Low grade temp of 37.6 01/26- could have been secondary to COVID-19, but could also be secondary to hip fracture. No apparent indication for treatment for COVID-19 at this time. Recheck serial SARS-CoV-2 PCR's until negative x 2 per test-based strategy to assist with determining isolation needs and discharge planning. PCR still positive as of 02/09. (3) Anemia: Hgb 13.7 preop --> 9.4 --> 8.3. Probable acute blood loss anemia secondary to hip fracture +/- hemodilution from IV fluids. No gross GI bleeding. Hgb today = 10.4. No indication for transfusion at this time. Follow. (4) HTN (hypertension): Hemodynamically stable. Continue lisinopril. (5) Parkinson disease: Continue carbidopa / levodopa. (6) Dementia: Monitor for delirium. (7) Constipation: Bowel movement yesterday. Continue bowel regimen as ordered. (8) Elevated d-dimer: D-dimer ordered as prognostic indicator for COVID-19. It was elevated (5290). Elevated D-dimer not unexpected with hip fracture and repair. No signs or symptoms of DVT or pulmonary embolism (Wells scores for both low). But... at increased risk for VTE due to combination of hip fracture and repair, ongoing relative immobility due to Parkinson's disease, and COVID-19. Therefore, changed SQ enoxaparin to therapeutic dosing. Check venous duplex lower extremities to guide anticoagulation strategy once repeat SARS-CoV-2 negative x 2. (9) DVT prophylaxis: SQ enoxaparin as discussed above. Ambulate as able. (10) Discharge planning issues: Discharge disposition to be determined- possibilities include return to [facility] with PT/OT vs transfer to skilled care or inpt rehab. Check serial SARS-CoV-2 PCR's until negative x 2 to assist with discharge planning. Ortho follow-up with Dr. Hanna. Medical follow-up with Dr. Gutierrez. Admission and Anticipated Discharge Date Admission Date: January 23, 2020 Subjective Recheck for hip fracture, COVID-19, and other problems. Patient seen in their room around 1420. No new concerns. Afebrile. Minimal cough. No SOB. Working with PT & OT. Ambulating with assistance. Less postop pain. Review of Systems: Constitutional- as noted above. Cardiac- no chest pain. Pulmonary- as noted above. GI- constipated; no nausea, vomiting, diarrhea, melena, hematochezia. - chronic urinary incontinence, no dysuria. Otherwise, as noted above. Physical Exam Constitutional: no acute distress Respiratory: no respiratory distress Auscultation: lungs clear to auscultation bilaterally Cardiovascular: Rate/Rhythm: regular rate and regular rhythm Heart Sounds: no gallop and no cardiac rub Vessels: no JVD Extremities: no calf tenderness and no edema Gastrointestinal (Abdomen): normal bowel sounds, soft, nontender, no hepatosplenomegaly Musculoskeletal: Extremities: + extremities abnormal to inspection (right hip incisions stapled, no erythema or drainage) and no cyanosis Skin: no rashes, warm and dry Psychiatric: Orientation: alert; + not oriented x 3 (mild-moderate confusion) Results & Data Results & Data ([facility]) Vital Signs (Past 12 Hours) Vital Signs Temp Pulse Resp BP Pulse Ox 02/12/20 19:43 36.9 C 79 21 125/76 95 (1) Closed right hip fracture Encounter type: initial encounter Qualified Code(s): S72.001A - Fracture of unspecified part of neck of right femur, initial encounter for closed fracture
[2020-02-13] MEDS: ZINC SULFATE 220 MG CAPSULE PO SCH (08:11)
[2020-02-13] MEDS: PANTOprazole 40 MG TAB PO SCH (08:11)
[2020-02-13] MEDS: FINASTERIDE 5 MG TAB PO SCH (08:11)
[2020-02-13] MEDS: lisinopriL 5 MG TAB PO SCH (08:11)
[2020-02-13] MEDS: ASCORBIC ACID 500 MG TAB PO SCH ×2 (08:12→19:47)
[2020-02-13] MEDS: SERTRALINE HCL 100 MG TABLET PO SCH (08:13)
[2020-02-13] MEDS: CARBIDOPA/LEVODOPA 25/100MG TAB PO SCH ×3 (08:13→19:47)
[2020-02-13] MEDS: ENOXAPARIN 80 MG/0.8 ML SYR SQ SCH ×2 (08:14→19:46)
[2020-02-13] MEDS: LORazepam 0.5 MG TAB PO SCH ×2 (08:17→19:46)
[2020-02-13] MEDS: POTASSIUM CHLORIDE 10 MEQ TABCR PO SCH (08:17)
[2020-02-13] MEDS: MAGNESIUM OXIDE 400 MG TAB PO SCH (08:17)
[2020-02-13] MEDS: ACETAMINOPHEN 500 MG TAB PO SCH ×3 (08:20→23:17)
[2020-02-13] MEDS: DOCUSATE SODIUM/SENNA 50/8.6MG TAB PO SCH ×2 (08:20→19:48)
--- NOTE | 2020-02-13 16:05 | Hospitalist Progress Note ---
Date of Service February 13, 2020 Assessment & Plan (1) Closed right hip fracture: Fell and suffered intertrochanteric fracture of right hip. Cephalomedullary nailing performed by Dr. Hanna on 01/24. Toe-touch nonweightbearing right lower extremity. Continue PT, OT, analgesics. 25-OH vitamin D level = 85. (2) COVID-19: No fever, cough, SOB, hypoxia at time of admission. Tested for COVID-19 due to other cases at his personal care facility. SARS-CoV-2 PCR nasopharyngeal swab positive on 01/22. Weakness from COVID-19 may have contributed to fall and hip fracture. Low grade temp of 37.6 01/26- could have been secondary to COVID-19, but could also be secondary to hip fracture. No apparent indication for treatment for COVID-19 at this time. Recheck serial SARS-CoV-2 PCR's until negative x 2 per test-based strategy to assist with determining isolation needs and discharge planning. PCR still positive as of 02/09. (3) Anemia: Hgb 13.7 preop --> 9.4 --> 8.3. Probable acute blood loss anemia secondary to hip fracture +/- hemodilution from IV fluids. No gross GI bleeding. Hgb yesterday = 10.4. No indication for transfusion at this time. Follow. (4) HTN (hypertension): Hemodynamically stable. Continue lisinopril. (5) Parkinson disease: Continue carbidopa / levodopa. (6) Dementia: Monitor for delirium. (7) Constipation: Having small BM's. Continue bowel regimen as ordered. (8) Elevated d-dimer: D-dimer ordered as prognostic indicator for COVID-19. It was elevated (5290). Elevated D-dimer not unexpected with hip fracture and repair. No signs or symptoms of DVT or pulmonary embolism (Wells scores for both low). But... at increased risk for VTE due to combination of hip fracture and repair, ongoing relative immobility due to Parkinson's disease, and COVID-19. Therefore, changed SQ enoxaparin to therapeutic dosing. Consider checking venous duplex lower extremities +/- CTA chest to guide anticoagulation strategy once isolation precautions can be discontinued. (9) DVT prophylaxis: SQ enoxaparin as discussed above. Ambulate as able. (10) Discharge planning issues: Discharge disposition to be determined- possibilities include return to [facility] with PT/OT vs transfer to skilled care or inpt rehab. [facility] is apparently requiring 2 negative SARS-CoV-2 PCR's before accepting pt in transfer. Ortho follow-up with Dr. Hanna. Medical follow-up with Dr. Gutierrez. Zachary Maddox given update this morning by phone. He is hoping that pt can be discharge soon. Admission and Anticipated Discharge Date Admission Date: January 23, 2020 Subjective Recheck for hip fracture, COVID-19, and other problems. Patient seen in their room around 1400. Afebrile. Occasional cough. No SOB. Less postop pain. Review of Systems: Constitutional- as noted above. Cardiac- no chest pain. Pulmonary- as noted above. GI- constipation improved; no nausea, vomiting, diarrhea, melena, hematochezia. - chronic urinary incontinence, no dysuria. Otherwise, as noted above. Physical Exam Constitutional: no acute distress Respiratory: no respiratory distress Auscultation: lungs clear to auscultation bilaterally Cardiovascular: Rate/Rhythm: regular rate and regular rhythm Heart Sounds: no gallop and no cardiac rub Vessels: no JVD Extremities: no calf tenderness and no edema Gastrointestinal (Abdomen): normal bowel sounds, soft, nontender, no hepatosplenomegaly Musculoskeletal: Extremities: + extremities abnormal to inspection (right hip incisions stapled, no erythema or drainage) and no cyanosis Skin: no rashes, warm and dry Psychiatric: Orientation: alert; + not oriented x 3 (mild confusion) Results & Data Results & Data ([facility]) Vital Signs (Past 12 Hours) Vital Signs Temp Pulse Resp BP Pulse Ox 02/13/20 15:50 36.3 C L 79 16 120/72 96 02/13/20 07:29 36.4 C L 74 16 136/76 94 (1) Closed right hip fracture Encounter type: initial encounter Qualified Code(s): S72.001A - Fracture of unspecified part of neck of right femur, initial encounter for closed fracture
[2020-02-14] MEDS: FINASTERIDE 5 MG TAB PO SCH (08:18)
[2020-02-14] MEDS: PANTOprazole 40 MG TAB PO SCH (08:19)
[2020-02-14] MEDS: SERTRALINE HCL 100 MG TABLET PO SCH (08:19)
[2020-02-14] MEDS: lisinopriL 5 MG TAB PO SCH (08:19)
[2020-02-14] MEDS: ZINC SULFATE 220 MG CAPSULE PO SCH (08:19)
[2020-02-14] MEDS: ASCORBIC ACID 500 MG TAB PO SCH ×2 (08:20→20:50)
[2020-02-14] MEDS: CARBIDOPA/LEVODOPA 25/100MG TAB PO SCH ×3 (08:20→20:51)
[2020-02-14] MEDS: DOCUSATE SODIUM/SENNA 50/8.6MG TAB PO SCH ×2 (08:20→20:51)
[2020-02-14] MEDS: ENOXAPARIN 80 MG/0.8 ML SYR SQ SCH ×2 (08:21→20:52)
[2020-02-14] MEDS: LORazepam 0.5 MG TAB PO SCH ×2 (08:33→20:50)
[2020-02-14] MEDS: POTASSIUM CHLORIDE 10 MEQ TABCR PO SCH (08:33)
[2020-02-14] MEDS: MAGNESIUM OXIDE 400 MG TAB PO SCH (08:47)
[2020-02-14] MEDS: ACETAMINOPHEN 500 MG TAB PO SCH ×3 (08:50→23:51)
--- NOTE | 2020-02-14 17:18 | XRay Report ---
XR hip RT min 2V CLINICAL HISTORY: post op routine XR COMPARISON: 01/25/2020 DISCUSSION: Anatomic alignment post right hip pinning/nailing. Good contact between metallic componen ts and underlying bone. The described fractures are unchanged. There is no evidence for soft tissue swelling. IMPRESSION: Anatomic alignment post right hip pinning. ACT 112: Negative or not required by law. The above report was generated using voice recognition software. It may contain grammatical, syntax or spelling errors. Electronically signed by: Darion Major M.D. 02/14/2020 5:17 PM
--- NOTE | 2020-02-14 19:44 | Hospitalist Progress Note ---
Date of Service February 14, 2020 Assessment & Plan (1) Closed right hip fracture: Fell and suffered intertrochanteric fracture of right hip. Cephalomedullary nailing performed by Dr. Hanna on 01/24. Toe-touch nonweightbearing right lower extremity. Kirill to be removed today. Continue PT, OT, analgesics. 25-OH vitamin D level = 85. (2) COVID-19: No fever, cough, SOB, hypoxia at time of admission. Tested for COVID-19 due to other cases at his personal care facility. SARS-CoV-2 PCR nasopharyngeal swab positive on 01/22. Weakness from COVID-19 may have contributed to fall and hip fracture. Low grade temp of 37.6 01/26- could have been secondary to COVID-19, but could also be secondary to hip fracture. No apparent indication for treatment for COVID-19 at this time. Recheck serial SARS-CoV-2 PCR's until negative x 2 per test-based strategy to assist with determining isolation needs and discharge planning. PCR 02/12 negative. Recheck this afternoon. (3) Anemia: Hgb 13.7 preop --> 9.4 --> 8.3. Probable acute blood loss anemia secondary to hip fracture +/- hemodilution from IV fluids. No gross GI bleeding. Hgb 02/11 = 10.4. No indication for transfusion at this time. Follow. (4) HTN (hypertension): Hemodynamically stable. Continue lisinopril. (5) Parkinson disease: Continue carbidopa / levodopa. (6) Dementia: Monitor for delirium. (7) Constipation: Having small BM's. Continue bowel regimen as ordered. (8) Elevated d-dimer: D-dimer ordered as prognostic indicator for COVID-19. It was elevated (5290). Elevated D-dimer not unexpected with hip fracture and repair. No signs or symptoms of DVT or pulmonary embolism (Wells scores for both low). But... at increased risk for VTE due to combination of hip fracture and repair, ongoing relative immobility due to Parkinson's disease, and COVID-19. Therefore, changed SQ enoxaparin to therapeutic dosing. Consider checking venous duplex lower extremities +/- CTA chest to guide anticoagulation strategy once isolation precautions can be discontinued. (9) DVT prophylaxis: SQ enoxaparin as discussed above. Ambulate as able. (10) Discharge planning issues: Discharge disposition to be determined- possibilities include return to [facility] with PT/OT vs transfer to skilled care or inpt rehab. [facility] is apparently requiring 2 negative SARS-CoV-2 PCR's before accepting pt in transfer. Ortho follow-up with Dr. Hanna. Medical follow-up with Dr. Gutierrez. Zachary Maddox given update this afternoon. Admission and Anticipated Discharge Date Admission Date: January 23, 2020 Subjective Recheck for hip fracture, COVID-19, and other problems. Patient seen in their room around 1410. Afebrile. Rare cough cough. No SOB. Less postop pain. Still needs assistance with transfers and ambulation. Review of Systems: Constitutional- as noted above. Cardiac- no chest pain. Pulmonary- as noted above. GI- constipation improved; no nausea, vomiting, diarrhea, melena, hematochezia. - chronic urinary incontinence, no dysuria. Otherwise, as noted above. Physical Exam Constitutional: no acute distress Respiratory: no respiratory distress Auscultation: lungs clear to auscultation bilaterally Cardiovascular: Rate/Rhythm: regular rate and regular rhythm Heart Sounds: no gallop and no cardiac rub Vessels: no JVD Extremities: no calf tenderness and no edema Gastrointestinal (Abdomen): normal bowel sounds, soft, nontender, no hepatosplenomegaly Musculoskeletal: Extremities: + extremities abnormal to inspection (right hip incisions stapled, no erythema or drainage) and no cyanosis Skin: no rashes, warm and dry Psychiatric: Orientation: alert; + not oriented x 3 (mild confusion) Results & Data Results & Data ([facility]) Vital Signs (Past 12 Hours) Vital Signs Temp Pulse Resp BP Pulse Ox 02/14/20 16:00 36.9 C 76 18 131/76 94 02/14/20 08:22 37.1 C 83 18 141/73 H 94 02/14/20 08:15 37.1 C 83 20 141/73 H 94 Laboratory Results Laboratory Results - last 24 hr 02/13/20 02/14/20 09:10 14:55 SARS-CoV-2 RNA (RT-PCR) NEGATIVE Pending (1) Closed right hip fracture Encounter type: initial encounter Qualified Code(s): S72.001A - Fracture of unspecified part of neck of right femur, initial encounter for closed fracture
[2020-02-15] MEDS: TRAMADOL HCL 50 MG TABLET PO PRN (05:30)
[2020-02-15 07:11] LABS: Creatinine Clr Calc Pharmacy 108.7 ml/min; Est GFR (African American) 109.2; Est GFR (Non-African American) 94.2
[2020-02-15] MEDS: LORazepam 0.5 MG TAB PO SCH ×2 (08:02→20:03)
[2020-02-15] MEDS: ASCORBIC ACID 500 MG TAB PO SCH ×2 (08:03→20:05)
[2020-02-15] MEDS: ZINC SULFATE 220 MG CAPSULE PO SCH (08:03)
[2020-02-15] MEDS: PANTOprazole 40 MG TAB PO SCH (08:04)
[2020-02-15] MEDS: ACETAMINOPHEN 500 MG TAB PO SCH ×3 (08:04→23:45)
[2020-02-15] MEDS: lisinopriL 5 MG TAB PO SCH (08:04)
[2020-02-15] MEDS: CARBIDOPA/LEVODOPA 25/100MG TAB PO SCH ×3 (08:05→20:05)
[2020-02-15] MEDS: FINASTERIDE 5 MG TAB PO SCH (08:05)
[2020-02-15] MEDS: SERTRALINE HCL 100 MG TABLET PO SCH (08:06)
[2020-02-15] MEDS: ENOXAPARIN 80 MG/0.8 ML SYR SQ SCH ×2 (08:07→20:03)
[2020-02-15] MEDS: MAGNESIUM OXIDE 400 MG TAB PO SCH (08:15)
[2020-02-15] MEDS: DOCUSATE SODIUM/SENNA 50/8.6MG TAB PO SCH ×2 (08:16→20:09)
[2020-02-15] MEDS: POTASSIUM CHLORIDE 10 MEQ TABCR PO SCH (08:16)
--- NOTE | 2020-02-15 21:51 | Hospitalist Progress Note ---
Date of Service February 15, 2020 Assessment & Plan (1) Closed right hip fracture: Fell and suffered intertrochanteric fracture of right hip. Cephalomedullary nailing performed by Dr. Hanna on 01/24. Toe-touch nonweightbearing right lower extremity. Kirill to be removed today. Continue PT, OT, analgesics. 25-OH vitamin D level = 85. (2) COVID-19: No fever, cough, SOB, hypoxia at time of admission. Tested for COVID-19 due to other cases at his personal care facility. SARS-CoV-2 PCR nasopharyngeal swab positive on 01/22. Weakness from COVID-19 may have contributed to fall and hip fracture. Low grade temp of 37.6 01/26- could have been secondary to COVID-19, but could also be secondary to hip fracture. No apparent indication for treatment for COVID-19 at this time. Recheck serial SARS-CoV-2 PCR's until negative x 2 per test-based strategy to assist with determining isolation needs and discharge planning. PCR 02/12 negative. PCR 02/13 positive. PCR / ordered. (3) Anemia: Hgb 13.7 preop --> 9.4 --> 8.3. Probable acute blood loss anemia secondary to hip fracture +/- hemodilution from IV fluids. No gross GI bleeding. Hgb 02/11 = 10.4. No indication for transfusion at this time. Follow. (4) HTN (hypertension): Hemodynamically stable. Continue lisinopril. (5) Parkinson disease: Continue carbidopa / levodopa. (6) Dementia: Monitor for delirium. (7) Constipation: Having small BM's. Continue bowel regimen as ordered. (8) Elevated d-dimer: D-dimer ordered as prognostic indicator for COVID-19. It was elevated (5290). Elevated D-dimer not unexpected with hip fracture and repair. No signs or symptoms of DVT or pulmonary embolism (Wells scores for both low). But... at increased risk for VTE due to combination of hip fracture and repair, ongoing relative immobility due to Parkinson's disease, and COVID-19. Therefore, changed SQ enoxaparin to therapeutic dosing. Consider checking venous duplex lower extremities +/- CTA chest to guide anticoagulation strategy once isolation precautions can be discontinued. (9) DVT prophylaxis: SQ enoxaparin as discussed above. Ambulate as able. (10) Discharge planning issues: Discharge disposition to be determined- possibilities include return to [facility] with PT/OT vs transfer to skilled care or inpt rehab. [facility] is apparently requiring 2 negative SARS-CoV-2 PCR's before accepting pt in transfer. Ortho follow-up with Dr. Hanna. Medical follow-up with Dr. Gutierrez. Zachary Maddox given update this evening. Admission and Anticipated Discharge Date Admission Date: January 23, 2020 Subjective Recheck for hip fracture, COVID-19, and other problems. Patient seen in their room around 0940. Afebrile. Persistent occasional cough. No SOB. Less postop pain. Still needs assistance with transfers and ambulation. Review of Systems: Constitutional- as noted above. Cardiac- no chest pain. Pulmonary- as noted above. GI- constipation improved; no nausea, vomiting, diarrhea, melena, hematochezia. - chronic urinary incontinence, no dysuria. Otherwise, as noted above. Physical Exam Constitutional: no acute distress Respiratory: no respiratory distress Auscultation: lungs clear to auscultation bilaterally Cardiovascular: Rate/Rhythm: regular rate and regular rhythm Heart Sounds: no gallop and no cardiac rub Vessels: no JVD Extremities: no calf tenderness and no edema Gastrointestinal (Abdomen): normal bowel sounds, soft, nontender, no hepatosplenomegaly Musculoskeletal: Extremities: + extremities abnormal to inspection (right hip incisions stapled, no erythema or drainage) and no cyanosis Skin: no rashes, warm and dry Psychiatric: Orientation: alert; + not oriented x 3 (mild confusion, but oriented to person, place, year, president) Results & Data Results & Data ([facility]) Vital Signs (Past 12 Hours) Vital Signs Temp Pulse Resp BP Pulse Ox 02/15/20 20:00 36.7 C 71 18 118/68 95 02/15/20 12:43 36.6 C 95 H 16 99/60 L 99 (1) Closed right hip fracture Encounter type: initial encounter Qualified Code(s): S72.001A - Fracture of unspecified part of neck of right femur, initial encounter for closed fracture
[2020-02-16] MEDS: FINASTERIDE 5 MG TAB PO SCH (09:06)
[2020-02-16] MEDS: SERTRALINE HCL 100 MG TABLET PO SCH (09:06)
[2020-02-16] MEDS: PANTOprazole 40 MG TAB PO SCH (09:07)
[2020-02-16] MEDS: ZINC SULFATE 220 MG CAPSULE PO SCH (09:07)
[2020-02-16] MEDS: lisinopriL 5 MG TAB PO SCH (09:07)
[2020-02-16] MEDS: CARBIDOPA/LEVODOPA 25/100MG TAB PO SCH ×3 (09:08→20:10)
[2020-02-16] MEDS: ASCORBIC ACID 500 MG TAB PO SCH ×2 (09:08→20:10)
[2020-02-16] MEDS: ENOXAPARIN 80 MG/0.8 ML SYR SQ SCH ×2 (09:13→20:09)
--- NOTE | 2020-02-16 09:19 | XRay Report ---
XR chest 1V portable CLINICAL HISTORY: cough dyspnea COMPARISON STUDY: 01/28/2020 FINDINGS: The bones soft tissues and hemidiaphragms are normal. The cardiomediastinal silhouette is n ormal. The lungs are clear. The pulmonary vasculature is normal. IMPRESSION: Negative chest. Improved from the prior study. ACT 112: Negative or not required by law. The above report was generated using voice recognition software. It may contain grammatical, syntax or spelling errors. Electronically signed by: Darion Major M.D. 02/16/2020 9:18 AM
[2020-02-16] MEDS: MAGNESIUM OXIDE 400 MG TAB PO SCH (09:29)
[2020-02-16] MEDS: POTASSIUM CHLORIDE 10 MEQ TABCR PO SCH (09:29)
[2020-02-16] MEDS: LORazepam 0.5 MG TAB PO SCH ×2 (09:29→20:08)
[2020-02-16] MEDS: DOCUSATE SODIUM/SENNA 50/8.6MG TAB PO SCH ×2 (09:29→20:13)
[2020-02-16] MEDS: ACETAMINOPHEN 500 MG TAB PO SCH ×3 (09:30→23:42)
[2020-02-16] MEDS: TRAMADOL HCL 50 MG TABLET PO PRN (09:31)
--- NOTE | 2020-02-16 16:32 | Hospitalist Progress Note ---
Date of Service February 16, 2020 Assessment & Plan (1) Closed right hip fracture: Fell and suffered intertrochanteric fracture of right hip. Cephalomedullary nailing performed by Dr. Hanna on 01/24. Toe-touch nonweightbearing right lower extremity. Kirill removed 02/13. Continue PT, OT, analgesics. 25-OH vitamin D level = 85. (2) COVID-19: No fever, cough, SOB, hypoxia at time of admission. Tested for COVID-19 due to other cases at his personal care facility. SARS-CoV-2 PCR nasopharyngeal swab positive on 01/22. Weakness from COVID-19 may have contributed to fall and hip fracture. Low grade temp of 37.6 01/26- could have been secondary to COVID-19, but could also be secondary to hip fracture. No apparent indication for treatment for COVID-19 at this time. Recheck serial SARS-CoV-2 PCR's until negative x 2 per test-based strategy to assist with determining isolation needs and discharge planning. PCR 02/12 negative PCR 02/13 positive PCR 02/15 pending PCR 02/16 ordered (3) Anemia: Hgb 13.7 preop --> 9.4 --> 8.3. Probable acute blood loss anemia secondary to hip fracture +/- hemodilution from IV fluids. No gross GI bleeding. Hgb 02/11 = 10.4. No indication for transfusion at this time. Follow. (4) HTN (hypertension): Hemodynamically stable. Continue lisinopril. (5) Parkinson disease: Continue carbidopa / levodopa. (6) Dementia: Monitor for delirium. (7) Constipation: Having small BM's. Continue bowel regimen as ordered. (8) Elevated d-dimer: D-dimer ordered as prognostic indicator for COVID-19. It was elevated (5290). Elevated D-dimer not unexpected with hip fracture and repair. No signs or symptoms of DVT or pulmonary embolism (Wells scores for both low). But... at increased risk for VTE due to combination of hip fracture and repair, ongoing relative immobility due to Parkinson's disease, and COVID-19. Therefore, changed SQ enoxaparin to therapeutic dosing. Consider checking venous duplex lower extremities +/- CTA chest to guide anticoagulation strategy once isolation precautions can be discontinued. Alternatively, could treat empirically for VTE for 3 months. (9) DVT prophylaxis: SQ enoxaparin as discussed above. Ambulate as able. (10) Discharge planning issues: Discharge disposition to be determined- possibilities include return to [facility] with PT/OT vs transfer to skilled care or inpt rehab. [facility] is apparently requiring 2 negative SARS-CoV-2 PCR's before accepting pt in transfer. Ortho follow-up with Dr. Hanna. Medical follow-up with Dr. Gutierrez. Zachary Maddox given update this afternoon. Admission and Anticipated Discharge Date Admission Date: January 23, 2020 Subjective Recheck for hip fracture, COVID-19, and other problems. Patient seen in their room around 1110. Status quo. Afebrile. Occasional cough. No SOB. Less postop pain. Still needs assistance with transfers and ambulation (but transferring more easily). Anxiously awaiting 2 consecutive negative SARS-CoV-2 PCR's so that he can move on to inpt rehab. Review of Systems: Constitutional- as noted above. Cardiac- no chest pain. Pulmonary- as noted above. GI- no nausea, vomiting, diarrhea, melena, hematochezia. - chronic urinary incontinence, no dysuria. Otherwise, as noted above. Physical Exam Constitutional: no acute distress Respiratory: no respiratory distress Auscultation: lungs clear to auscultation bilaterally Cardiovascular: Rate/Rhythm: regular rate and regular rhythm Heart Sounds: no gallop and no cardiac rub Vessels: no JVD Extremities: no calf tenderness and no edema Gastrointestinal (Abdomen): normal bowel sounds, soft, nontender, no hepatosplenomegaly Musculoskeletal: Extremities: no cyanosis Skin: no rashes, warm and dry Psychiatric: Orientation: alert; + not oriented x 3 (mild confusion) Results & Data Results & Data ([facility]) Vital Signs (Past 12 Hours) Vital Signs Temp Pulse Resp BP Pulse Ox 02/16/20 15:58 36.6 C 71 20 109/62 95 02/16/20 09:05 37.0 C 75 18 129/76 94 Laboratory Results Laboratory Results - last 24 hr 02/16/20 08:30 SARS-CoV-2 RNA (RT-PCR) Pending Diagnostic Findings PORTABLE CHEST X-RAY Reviewed by the undersigned and formally interpreted by Radiology: FINDINGS: The bones soft tissues and hemidiaphragms are normal. The cardiomediastinal silhouette is normal. The lungs are clear. The pulmonary vasculature is normal. IMPRESSION: Negative chest. Improved from the prior study. ACT 112: Negative or not required by law. The above report was generated using voice recognition software. It may contain grammatical, syntax or spelling errors. Electronically signed by: Darion Major M.D. 02/16/2020 9:18 AM (1) Closed right hip fracture Encounter type: initial encounter Qualified Code(s): S72.001A - Fracture of unspecified part of neck of right femur, initial encounter for closed fracture
[2020-02-17] MEDS: POTASSIUM CHLORIDE 10 MEQ TABCR PO SCH (08:16)
[2020-02-17] MEDS: ENOXAPARIN 80 MG/0.8 ML SYR SQ SCH ×2 (08:16→19:53)
[2020-02-17] MEDS: LORazepam 0.5 MG TAB PO SCH ×2 (08:16→19:53)
[2020-02-17] MEDS: MAGNESIUM OXIDE 400 MG TAB PO SCH (08:17)
[2020-02-17] MEDS: lisinopriL 5 MG TAB PO SCH (08:17)
[2020-02-17] MEDS: FINASTERIDE 5 MG TAB PO SCH (08:17)
[2020-02-17] MEDS: PANTOprazole 40 MG TAB PO SCH (08:17)
[2020-02-17] MEDS: ASCORBIC ACID 500 MG TAB PO SCH ×2 (08:17→19:53)
[2020-02-17] MEDS: CARBIDOPA/LEVODOPA 25/100MG TAB PO SCH ×3 (08:17→19:53)
[2020-02-17] MEDS: SERTRALINE HCL 100 MG TABLET PO SCH (08:17)
[2020-02-17] MEDS: DOCUSATE SODIUM/SENNA 50/8.6MG TAB PO SCH ×2 (08:17→19:53)
[2020-02-17] MEDS: ZINC SULFATE 220 MG CAPSULE PO SCH (08:17)
[2020-02-17] MEDS: ACETAMINOPHEN 500 MG TAB PO SCH (08:17)
--- NOTE | 2020-02-17 18:35 | Hospitalist Progress Note ---
Date of Service February 17, 2020 Assessment & Plan (1) Closed right hip fracture: Fell and suffered intertrochanteric fracture of right hip. Cephalomedullary nailing performed by Dr. Hanna on 01/24. Toe-touch nonweightbearing right lower extremity. Kirill removed 02/13. Continue PT, OT, analgesics. 25-OH vitamin D level = 85. Scheduled Tylenol was switched to PRN. (2) COVID-19: asymptomatic, awaiting negative serial PCR. (3) Anemia: 2/2 post operative state. Stable. No transfusion needed at this time. (4) HTN (hypertension): at goal, cont lisinopril. (5) Parkinson disease: Continue carbidopa / levodopa per home regimen. (6) Dementia: At his baseline mental status. Monitor for delirium. (7) Constipation: Bowel regimen. (8) Elevated d-dimer: D-dimer ordered as prognostic indicator for COVID-19. It was elevated (5290). Elevated D-dimer not unexpected with hip fracture and repair. No signs or symptoms of DVT or pulmonary embolism (Wells scores for both low). But... at increased risk for VTE due to combination of hip fracture and repair, ongoing relative immobility due to Parkinson's disease, and COVID-19. Therefore, changed SQ enoxaparin to therapeutic dosing. Consider checking venous duplex lower extremities +/- CTA chest to guide anticoagulation strategy once isolation precautions can be discontinued. Alternatively, could treat empirically for VTE for 3 months. (9) DVT prophylaxis: SQ enoxaparin as discussed above. Ambulate as able. Full Code Dispo-to rehab in next 1-2 days or when covid PCR is negative x 2. Sheila Rosas DO [facility] Hospitalist Admission and Anticipated Discharge Date Admission Date: January 23, 2020 Subjective Initially said he was not doing well because he "lost my wallet and some other things." He then reported feeling well. He denies hip pain or other issues. We reviewed what needs to take place in order for him to leave the COVID unit. He verbalized understanding of the process. Review of Systems Review of Systems: All systems reviewed & are unremarkable except as noted in Subjective Physical Exam Physical Exam: CONSTITUTIONAL: WNWD, vitals as above, generally well- appearing EYES: normal conjunctivae, no scleral icterus ENT: external ear and nose normal, oropharynx clear, MMM RESPIRATORY: clear to auscultation bilaterally, no crackles, rales or wheezes, normal respiratory effort CARDIOVASCULAR: regular rate and rhythm, S1 and 2 heard without murmurs, gallops or rubs, no JVD, no peripheral edema GASTROINTESTINAL: normal bowel sounds, soft, nontender, nondistended MUSCULOSKELETAL: deconditioned. SKIN: warm and dry NEUROLOGIC: CN 2-12 grossly intact, no sensory deficit, normal cognition, normal speech, no gross focal deficits. PSYCHIATRIC: alert cooperative and oriented to person, place and time. Euthymic mood Results & Data Results & Data ([facility]) Vital Signs (Past 12 Hours) Vital Signs Temp Pulse Resp BP Pulse Ox 02/17/20 15:22 36.7 C 88 20 142/92 H 96 02/17/20 07:54 36.7 C 69 20 138/78 96 Medications Administered Current Inpatient Medications Acetaminophen (Tylenol) 1,000 mg PO Q8H PRN PRN Reason: pain or fever Stop: 02/22/20 21:59 Ascorbic Acid (Vitamin C) 500 mg PO BID@0800,1999 [facility] Stop: 02/24/20 19:59 Last Admin: 02/17/20 08:17 Dose: 500 mg Documented by: Bisacodyl (Dulcolax) 10 mg [place] DAILY PRN PRN Reason: Constipation Stop: 02/22/20 15:48 Carbidopa/Levodopa (Sinemet 25/100 Mg) 1 tab PO TID@0800,1499,1999 [facility] Stop: 02/22/20 19:59 Last Admin: 02/17/20 14:47 Dose: 1 tab Documented by: Enoxaparin Sodium (Lovenox) 80 mg SQ Q12H [facility] Stop: 03/02/20 07:59 Last Admin: 02/17/20 08:16 Dose: 80 mg Documented by: Finasteride (Proscar) 5 mg PO QAM@0800 [facility] Stop: 02/24/20 07:59 Last Admin: 02/17/20 08:17 Dose: 5 mg Documented by: Glycerin (Glycerin Adult) 1 supp [place] DAILY PRN PRN Reason: Constipation Stop: 03/01/20 13:58 Lisinopril (Zestril) 5 mg PO DAILY@0800 [facility] Stop: 02/23/20 07:59 Last Admin: 02/17/20 08:17 Dose: 5 mg Documented by: Lorazepam (Ativan) 0.5 mg PO BID@ [facility] Stop: 02/22/20 19:59 Last Admin: 02/17/20 08:16 Dose: 0.5 mg Documented by: Magnesium Hydroxide (Milk Of Magnesia) 30 ml PO DAILY PRN PRN Reason: Constipation Stop: 02/22/20 15:48 Last Admin: 02/10/20 15:00 Dose: 30 ml Documented by: Magnesium Oxide (Mag-Ox) 400 mg PO QAM@0800 [facility] Stop: 02/24/20 12:44 Last Admin: 02/17/20 08:17 Dose: 400 mg Documented by: Naloxone HCl (Narcan) 0.1 mg IV UD PRN PRN Reason: Opioid Overdose Stop: 02/24/20 15:43 Pantoprazole Sodium (Protonix) 40 mg PO QDB@0800 [facility] Stop: 02/24/20 07:59 Last Admin: 02/17/20 08:17 Dose: 40 mg Documented by: Polyethylene Glycol (Miralax Powder Packet) 17 gm PO DAILY PRN PRN Reason: Constipation Stop: 02/29/20 22:46 Last Admin: 01/31/20 13:29 Dose: 17 gm Documented by: Potassium Chloride (Klor-Con M10) 10 meq PO DAILY@0800 [facility] Stop: 02/23/20 07:59 Last Admin: 02/17/20 08:16 Dose: 10 meq Documented by: Senna/Docusate Sodium (Senokot S) 1 tab PO BID@ [facility] Stop: 02/22/20 19:59 Last Admin: 02/17/20 08:17 Dose: 1 tab Documented by: Sertraline HCl (Zoloft) 100 mg PO QAM@0800 [facility] Stop: 02/24/20 07:59 Last Admin: 02/17/20 08:17 Dose: 100 mg Documented by: Tramadol HCl (Ultram) 25 - 50 mg PO Q4H PRN PRN Reason: Pain Stop: 03/11/20 02:13 Last Admin: 02/16/20 09:31 Dose: 50 mg Documented by: Zinc Sulfate (Zinc Sulfate) 220 mg PO QAM@0800 [facility] Stop: 02/24/20 12:44 Last Admin: 02/17/20 08:17 Dose: 220 mg Documented by: (1) Closed right hip fracture Encounter type: initial encounter Qualified Code(s): S72.001A - Fracture of unspecified part of neck of right femur, initial encounter for closed fracture
[2020-02-18] MEDS: ZINC SULFATE 220 MG CAPSULE PO SCH (08:20)
[2020-02-18] MEDS: CARBIDOPA/LEVODOPA 25/100MG TAB PO SCH ×3 (08:20→21:14)
[2020-02-18] MEDS: ASCORBIC ACID 500 MG TAB PO SCH ×2 (08:20→21:15)
[2020-02-18] MEDS: PANTOprazole 40 MG TAB PO SCH (08:20)
[2020-02-18] MEDS: FINASTERIDE 5 MG TAB PO SCH (08:21)
[2020-02-18] MEDS: SERTRALINE HCL 100 MG TABLET PO SCH (08:21)
[2020-02-18] MEDS: lisinopriL 5 MG TAB PO SCH (08:21)
[2020-02-18] MEDS: ENOXAPARIN 80 MG/0.8 ML SYR SQ SCH ×2 (08:22→08:34)
[2020-02-18] MEDS: POTASSIUM CHLORIDE 10 MEQ TABCR PO SCH (08:28)
[2020-02-18] MEDS: MAGNESIUM OXIDE 400 MG TAB PO SCH (08:28)
[2020-02-18] MEDS: LORazepam 0.5 MG TAB PO SCH ×2 (08:29→21:13)
[2020-02-18] MEDS: DOCUSATE SODIUM/SENNA 50/8.6MG TAB PO SCH ×2 (08:29→21:14)
[2020-02-18] MEDS ORDERED: APIXABAN 5 MG TABLET PO SCH (09:00)
[2020-02-18] MEDS: APIXABAN 5 MG TABLET PO SCH ×2 (13:27→21:14)
--- NOTE | 2020-02-18 14:58 | Orthopedic Progress Note ---
Date of Service February 18, 2020 Assessment & Plan (1) Closed right hip fracture: Status post right hip cephalo-medullary nail POD#24 -Patient has had 2 negative COVID tests and will return to [facility] 02[facility]. -DVT prophylaxis SCDs, teds, Lovenox 40 mg daily. -Progress weightbearing status to 50% partial weightbearing on right lower extremity. -Physical therapy and Occupational Therapy, 50% weightbearing with assistive device -Postoperative X-ray on 02/14/2020 demonstrates a well line well fixed orthopedic implant with anatomic alignment of the fracture site and routine healing. -Patient will need to follow-up in the office in 4 to 6 weeks for repeat x-rays, discharge instructions updated. (2) COVID-19: Admission and Anticipated Discharge Date Admission Date: January 23, 2020 Subjective Post Operative Progress Note Patient seen sitting in wheelchair at bedside, comfortable, denies complaints, pain well controlled, no acute issues. Denies F/C/N/V/SOB/CP. Review of Systems Review of Systems: All systems reviewed & are unremarkable except as noted in HPI & below Constitutional: as per Subjective / HPI Physical Exam Physical Exam: RLE NVSI +EHL/FHL/TA/GS SILT grossly, +2 DP pulse, compartments soft NT, incision CDI. Constitutional: WD/WN, vitals as above Results & Data ([facility]) Vital Signs (Past 12 Hours) Vital Signs Temp Pulse Resp BP Pulse Ox 02/18/20 07:20 36.9 C 66 20 132/71 94 (1) Closed right hip fracture Encounter type: initial encounter Qualified Code(s): S72.001A - Fracture of unspecified part of neck of right femur, initial encounter for closed fracture
--- NOTE | 2020-02-18 16:05 | Hospitalist Progress Note ---
Date of Service February 18, 2020 Assessment & Plan (1) Closed right hip fracture: Fell and suffered intertrochanteric fracture of right hip. Cephalomedullary nailing performed by Dr. Hanna on 01/24. Toe-touch nonweightbearing right lower extremity. Elvira removed 02/13. Continue PT, OT, analgesics. 25-OH vitamin D level = 85. Approved for 50% WB on the right leg per Ortho today. Plan for [facility] rehab in am. (2) COVID-19: asymptomatic throughout hospitalization was placed on empiric anticoagulation for significantly elevated D-dimer. (3) Anemia: 2/2 post operative state. Stable. No transfusion needed at this time. (4) HTN (hypertension): at goal, cont lisinopril. (5) Parkinson disease: Continue carbidopa / levodopa per home regimen. Mentating at baseline. (6) Dementia: At his baseline mental status. Monitor for delirium. (7) Constipation: resolved. BM today. Cont bowel regimen. (8) Elevated d-dimer: D-dimer ordered as prognostic indicator for COVID-19. It was elevated (5290). Elevated D-dimer not unexpected with hip fracture and repair. No signs or symptoms of DVT or pulmonary embolism (Wells scores for both low). But... at increased risk for VTE due to combination of hip fracture and repair, ongoing relative immobility due to Parkinson's disease, and COVID-19. Therefore, changed SQ enoxaparin to therapeutic dosing. Later switched to apixaban. Consider checking venous duplex lower extremities +/- CTA chest to guide anticoagulation strategy once isolation precautions can be discontinued. Alternatively, could treat empirically for VTE for 3 months. (9) DVT prophylaxis: apixaban Ambulate as able. Full Code Dispo-to rehab in am. Sheila [facility] and Anticipated Discharge Date Admission Date: January 23, 2020 Subjective Pt doing well today Denies pain tolerating PO Ortho approved him for 50% WB on the right leg. Review of Systems Review of Systems: All systems reviewed & are unremarkable except as noted in Subjective Physical Exam Physical Exam: CONSTITUTIONAL: WNWD, vitals as above, generally well- appearing EYES: normal conjunctivae, no scleral icterus ENT: external ear and nose normal, oropharynx clear, MMM RESPIRATORY: clear to auscultation bilaterally, no crackles, rales or wheezes, normal respiratory effort CARDIOVASCULAR: regular rate and rhythm, S1 and 2 heard without murmurs, gallops or rubs, no JVD, no peripheral edema GASTROINTESTINAL: normal bowel sounds, soft, nontender, nondistended MUSCULOSKELETAL: deconditioned. SKIN: warm and dry, R hip incision is closed, elvira have been removed and wound appears to be healing well. NEUROLOGIC: CN 2-12 grossly intact, no sensory deficit, normal cognition, normal speech, no gross focal deficits. PSYCHIATRIC: alert cooperative and oriented to person, place and time. Euthymic mood Results & Data Results & Data ([facility]) Vital Signs (Past 12 Hours) Vital Signs Temp Pulse Resp BP Pulse Ox 02/18/20 15:40 37 C 75 18 107/64 99 02/18/20 07:20 36.9 C 66 20 132/71 94 Medications Administered Current Inpatient Medications Acetaminophen (Tylenol) 1,000 mg PO Q8H PRN PRN Reason: pain or fever Stop: 02/22/20 21:59 Apixaban (Eliquis) 5 mg PO BID@08 [facility] Stop: 03/19/20 08:44 Last Admin: 02/18/20 13:27 Dose: 5 mg Documented by: Ascorbic Acid (Vitamin C) 500 mg PO BID@799,1999 [facility] Stop: 02/24/20 19:59 Last Admin: 02/18/20 08:20 Dose: 500 mg Documented by: Bisacodyl (Dulcolax) 10 mg [place] DAILY PRN PRN Reason: Constipation Stop: 02/22/20 15:48 Carbidopa/Levodopa (Sinemet 25/100 Mg) 1 tab PO TID@0800,1499,1999 [facility] Stop: 02/22/20 19:59 Last Admin: 02/18/20 15:23 Dose: 1 tab Documented by: Finasteride (Proscar) 5 mg PO QAM@0800 [facility] Stop: 02/24/20 07:59 Last Admin: 02/18/20 08:21 Dose: 5 mg Documented by: Glycerin (Glycerin Adult) 1 supp [place] DAILY PRN PRN Reason: Constipation Stop: 03/01/20 13:58 Lisinopril (Zestril) 5 mg PO DAILY@0800 [facility] Stop: 02/23/20 07:59 Last Admin: 02/18/20 08:21 Dose: 5 mg Documented by: Lorazepam (Ativan) 0.5 mg PO BID@ [facility] Stop: 02/22/20 19:59 Last Admin: 02/18/20 08:29 Dose: 0.5 mg Documented by: Magnesium Hydroxide (Milk Of Magnesia) 30 ml PO DAILY PRN PRN Reason: Constipation Stop: 02/22/20 15:48 Last Admin: 02/10/20 15:00 Dose: 30 ml Documented by: Magnesium Oxide (Mag-Ox) 400 mg PO QAM@0800 [facility] Stop: 02/24/20 12:44 Last Admin: 02/18/20 08:28 Dose: 400 mg Documented by: Naloxone HCl (Narcan) 0.1 mg IV UD PRN PRN Reason: Opioid Overdose Stop: 02/24/20 15:43 Pantoprazole Sodium (Protonix) 40 mg PO QDB@0800 [facility] Stop: 02/24/20 07:59 Last Admin: 02/18/20 08:20 Dose: 40 mg Documented by: Polyethylene Glycol (Miralax Powder Packet) 17 gm PO DAILY PRN PRN Reason: Constipation Stop: 02/29/20 22:46 Last Admin: 01/31/20 13:29 Dose: 17 gm Documented by: Potassium Chloride (Klor-Con M10) 10 meq PO DAILY@0800 [facility] Stop: 02/23/20 07:59 Last Admin: 02/18/20 08:28 Dose: 10 meq Documented by: Senna/Docusate Sodium (Senokot S) 1 tab PO BID@ [facility] Stop: 02/22/20 19:59 Last Admin: 02/18/20 08:29 Dose: 1 tab Documented by: Sertraline HCl (Zoloft) 100 mg PO QAM@0800 [facility] Stop: 02/24/20 07:59 Last Admin: 02/18/20 08:21 Dose: 100 mg Documented by: Tramadol HCl (Ultram) 25 - 50 mg PO Q4H PRN PRN Reason: Pain Stop: 03/11/20 02:13 Last Admin: 02/16/20 09:31 Dose: 50 mg Documented by: Zinc Sulfate (Zinc Sulfate) 220 mg PO QAM@0800 [facility] Stop: 02/24/20 12:44 Last Admin: 02/18/20 08:20 Dose: 220 mg Documented by: (1) Closed right hip fracture Encounter type: initial encounter Qualified Code(s): S72.001A - Fracture of unspecified part of neck of right femur, initial encounter for closed fracture
[2020-02-18] MEDS: ACETAMINOPHEN 500 MG TAB PO PRN (19:37)
[2020-02-19] MEDS: POTASSIUM CHLORIDE 10 MEQ TABCR PO SCH (09:16)
[2020-02-19] MEDS: APIXABAN 5 MG TABLET PO SCH ×2 (09:16→20:36)
[2020-02-19] MEDS: LORazepam 0.5 MG TAB PO SCH ×2 (09:16→20:34)
[2020-02-19] MEDS: MAGNESIUM OXIDE 400 MG TAB PO SCH (09:17)
[2020-02-19] MEDS: FINASTERIDE 5 MG TAB PO SCH (09:17)
[2020-02-19] MEDS: PANTOprazole 40 MG TAB PO SCH (09:18)
[2020-02-19] MEDS: DOCUSATE SODIUM/SENNA 50/8.6MG TAB PO SCH ×2 (09:18→20:35)
[2020-02-19] MEDS: lisinopriL 5 MG TAB PO SCH (09:19)
[2020-02-19] MEDS: ASCORBIC ACID 500 MG TAB PO SCH ×2 (09:19→20:35)
[2020-02-19] MEDS: CARBIDOPA/LEVODOPA 25/100MG TAB PO SCH ×3 (09:19→20:35)
[2020-02-19] MEDS: SERTRALINE HCL 100 MG TABLET PO SCH (09:20)
[2020-02-19] MEDS: ZINC SULFATE 220 MG CAPSULE PO SCH (09:20)
[2020-02-19] MEDS: ACETAMINOPHEN 500 MG TAB PO PRN (12:41)
--- NOTE | 2020-02-19 16:30 | Hospitalist Progress Note ---
Date of Service February 19, 2020 Assessment & Plan (1) Closed right hip fracture: Fell and suffered intertrochanteric fracture of right hip. Cephalomedullary nailing performed by Dr. Hanna on 01/24. Toe-touch nonweightbearing right lower extremity. Elvira removed 02/13. Continue PT, OT, analgesics. 25-OH vitamin D level = 85. Approved for 50% WB on the right leg per Ortho and is progressing in strength on a daily basis. (2) Glaucoma: restarted eye drops (3) COVID-19: asymptomatic throughout hospitalization was placed on empiric anticoagulation for significantly elevated D-dimer. (4) Anemia: 2/2 post operative state. Stable. (5) HTN (hypertension): at goal, cont lisinopril. (6) Parkinson disease: Continue carbidopa / levodopa per home regimen. Mentating at baseline. (7) Dementia: At his baseline mental status. Monitor for delirium. Doing very well clinically. Very articulate. (8) DVT prophylaxis: apixaban Ambulate as able. 50% WB on right leg allowed per Ortho Full Code Dispo-to rehab pending approval and placement. No options until after the weekend. Patient and son are aware of the situation. P2P request made. Med director called during a patient encounter of mine and did not order picker/assembler when I returned the call. Noted 24 hour call back time before expiration of appeal. Will try back again Saturday morning. Sheila Rosas DO [facility] Hospitalist Admission and Anticipated Discharge Date Admission Date: January 23, 2020 Subjective Pt doing well Slight pain in right hip but feeling well today Denied [facility] by his insurance. I contacted renal medicine specialist for appeal-missed connection and will call back Saturday pt concerned about his eye drops-got those restarted this evening. Review of Systems Review of Systems: All systems reviewed & are unremarkable except as noted in Subjective Physical Exam Physical Exam: CONSTITUTIONAL: WNWD, vitals as above, generally well- appearing EYES: normal conjunctivae, no scleral icterus ENT: external ear and nose normal, oropharynx clear, MMM RESPIRATORY: clear to auscultation bilaterally, no crackles, rales or wheezes, normal respiratory effort CARDIOVASCULAR: regular rate and rhythm, S1 and 2 heard without murmurs, gallops or rubs, no JVD, no peripheral edema GASTROINTESTINAL: soft, nontender, nondistended MUSCULOSKELETAL: deconditioned. SKIN: warm and dry, R hip incision is closed, elvira have been removed and wound appears to be healing well. NEUROLOGIC: CN 2-12 grossly intact, no sensory deficit, normal cognition, normal speech, no gross focal deficits. PSYCHIATRIC: alert cooperative and oriented to person, place and time. Euthymic mood Results & Data Results & Data ([facility]) Vital Signs (Past 12 Hours) Vital Signs Temp Pulse Pulse Resp BP BP Pulse Ox 02/19/20 15:51 36.8 C 76 17 91/67 L 97 02/19/20 07:18 36.6 C 70 16 129/76 97 Medications Administered Current Inpatient Medications Acetaminophen (Tylenol) 1,000 mg PO Q8H PRN PRN Reason: pain or fever Stop: 02/22/20 21:59 Last Admin: 02/19/20 12:41 Dose: 1,000 mg Documented by: Apixaban (Eliquis) 5 mg PO BID@0800,1999 [facility] Stop: 03/19/20 08:44 Last Admin: 02/19/20 09:16 Dose: 5 mg Documented by: Ascorbic Acid (Vitamin C) 500 mg PO BID@0800,1999 [facility] Stop: 02/24/20 19:59 Last Admin: 02/19/20 09:19 Dose: 500 mg Documented by: Bisacodyl (Dulcolax) 10 mg [place] DAILY PRN PRN Reason: Constipation Stop: 02/22/20 15:48 Carbidopa/Levodopa (Sinemet 25/100 Mg) 1 tab PO TID@0800,1499,1999 [facility] Stop: 02/22/20 19:59 Last Admin: 02/19/20 14:15 Dose: 1 tab Documented by: Finasteride (Proscar) 5 mg PO QAM@0800 [facility] Stop: 02/24/20 07:59 Last Admin: 02/19/20 09:17 Dose: 5 mg Documented by: Glycerin (Glycerin Adult) 1 supp [place] DAILY PRN PRN Reason: Constipation Stop: 03/01/20 13:58 Lisinopril (Zestril) 5 mg PO DAILY@0800 [facility] Stop: 02/23/20 07:59 Last Admin: 02/19/20 09:19 Dose: 5 mg Documented by: Lorazepam (Ativan) 0.5 mg PO BID@0800,1999 [facility] Stop: 02/22/20 19:59 Last Admin: 02/19/20 09:16 Dose: 0.5 mg Documented by: Magnesium Hydroxide (Milk Of Magnesia) 30 ml PO DAILY PRN PRN Reason: Constipation Stop: 02/22/20 15:48 Last Admin: 02/10/20 15:00 Dose: 30 ml Documented by: Magnesium Oxide (Mag-Ox) 400 mg PO QAM@0800 [facility] Stop: 02/24/20 12:44 Last Admin: 02/19/20 09:17 Dose: 400 mg Documented by: Naloxone HCl (Narcan) 0.1 mg IV UD PRN PRN Reason: Opioid Overdose Stop: 02/24/20 15:43 Pantoprazole Sodium (Protonix) 40 mg PO QDB@0800 [facility] Stop: 02/24/20 07:59 Last Admin: 02/19/20 09:18 Dose: 40 mg Documented by: Polyethylene Glycol (Miralax Powder Packet) 17 gm PO DAILY PRN PRN Reason: Constipation Stop: 02/29/20 22:46 Last Admin: 01/31/20 13:29 Dose: 17 gm Documented by: Potassium Chloride (Klor-Con M10) 10 meq PO DAILY@0800 [facility] Stop: 02/23/20 07:59 Last Admin: 02/19/20 09:16 Dose: 10 meq Documented by: Senna/Docusate Sodium (Senokot S) 1 tab PO BID@ [facility] Stop: 02/22/20 19:59 Last Admin: 02/19/20 09:18 Dose: 1 tab Documented by: Sertraline HCl (Zoloft) 100 mg PO QAM@0800 [facility] Stop: 02/24/20 07:59 Last Admin: 02/19/20 09:20 Dose: 100 mg Documented by: Tramadol HCl (Ultram) 25 - 50 mg PO Q4H PRN PRN Reason: Pain Stop: 03/11/20 02:13 Last Admin: 02/16/20 09:31 Dose: 50 mg Documented by: Zinc Sulfate (Zinc Sulfate) 220 mg PO QAM@0800 [facility] Stop: 02/24/20 12:44 Last Admin: 02/19/20 09:20 Dose: 220 mg Documented by: (1) Closed right hip fracture Encounter type: initial encounter Qualified Code(s): S72.001A - Fracture of unspecified part of neck of right femur, initial encounter for closed fracture
[2020-02-19] MEDS: TRAMADOL HCL 50 MG TABLET PO PRN (19:22)
[2020-02-19] MEDS: DORZOLAMIDE/TIMOLOL 22.3/6.8MG/ML 10 ML BTL OPB SCH (21:34)
[2020-02-19] MEDS: BRIMONIDINE TARTRATE 0.2% 5ML OPB SCH (21:35)
[2020-02-20] MEDS ORDERED: LORazepam 0.5 MG TAB PO STA (03:01)
[2020-02-20] MEDS: ACETAMINOPHEN 500 MG TAB PO PRN ×2 (03:37→14:30)
[2020-02-20] MEDS: APIXABAN 5 MG TABLET PO SCH ×2 (08:05→21:00)
[2020-02-20] MEDS: LORazepam 0.5 MG TAB PO SCH ×2 (08:05→20:57)
[2020-02-20] MEDS: ASCORBIC ACID 500 MG TAB PO SCH ×2 (08:05→21:00)
[2020-02-20] MEDS: MAGNESIUM OXIDE 400 MG TAB PO SCH (08:06)
[2020-02-20] MEDS: POTASSIUM CHLORIDE 10 MEQ TABCR PO SCH (08:06)
[2020-02-20] MEDS: FINASTERIDE 5 MG TAB PO SCH (08:07)
[2020-02-20] MEDS: DOCUSATE SODIUM/SENNA 50/8.6MG TAB PO SCH ×2 (08:07→21:01)
[2020-02-20] MEDS: PANTOprazole 40 MG TAB PO SCH (08:07)
[2020-02-20] MEDS: CARBIDOPA/LEVODOPA 25/100MG TAB PO SCH ×3 (08:08→21:01)
[2020-02-20] MEDS: lisinopriL 5 MG TAB PO SCH (08:08)
[2020-02-20] MEDS: ZINC SULFATE 220 MG CAPSULE PO SCH (08:09)
[2020-02-20] MEDS: SERTRALINE HCL 100 MG TABLET PO SCH (08:09)
[2020-02-20] MEDS: BRIMONIDINE TARTRATE 0.2% 5ML OPB SCH ×2 (08:14→21:03)
[2020-02-20] MEDS: DORZOLAMIDE/TIMOLOL 22.3/6.8MG/ML 10 ML BTL OPB SCH ×2 (08:14→21:00)
--- NOTE | 2020-02-20 17:46 | Hospitalist Progress Note ---
Date of Service February 20, 2020 Assessment & Plan (1) Closed right hip fracture: Fell and suffered intertrochanteric fracture of right hip. Cephalomedullary nailing performed by Dr. Hanna on 01/24. Toe-touch nonweightbearing right lower extremity. Elvira removed 02/13. Continue PT, OT, analgesics. 25-OH vitamin D level = 85. Approved for 50% WB on the right leg per Ortho and is progressing in strength on a daily basis. (2) Glaucoma: eyedrops per home regimen. (3) COVID-19: asymptomatic throughout hospitalization was placed on empiric anticoagulation for significantly elevated D-dimer. (4) Anemia: 2/2 post operative state. Stable. (5) HTN (hypertension): at goal, cont lisinopril. (6) Parkinson disease: Continue carbidopa / levodopa per home regimen. Mentating at baseline. (7) Dementia: At his baseline mental status. Monitor for delirium. Doing very well clinically. Very articulate. (8) DVT prophylaxis: apixaban Ambulate as able. 50% WB on right leg allowed per Ortho Full Code Dispo-to rehab pending approval and placement. No options until after the weekend. P2P appeal on Sat. Sheila Rosas DO [facility] and Anticipated Discharge Date Admission Date: January 23, 2020 Subjective Doing well overall No issues Tolerating PO Worked with therapists today. Review of Systems Review of Systems: All systems reviewed & are unremarkable except as noted in Subjective Physical Exam Physical Exam: CONSTITUTIONAL: WNWD, vitals as above, generally well- appearing EYES: normal conjunctivae, no scleral icterus ENT: external ear and nose normal, oropharynx clear, MMM RESPIRATORY: clear to auscultation bilaterally, no crackles, rales or wheezes, normal respiratory effort CARDIOVASCULAR: regular rate and rhythm, S1 and 2 heard without murmurs, gallops or rubs, no JVD, no peripheral edema GASTROINTESTINAL: soft, nontender, nondistended MUSCULOSKELETAL: deconditioned but improving in abilities SKIN: warm and dry, R hip incision is closed, elvira have been removed and wound is healing well. NEUROLOGIC: CN 2-12 grossly intact, no sensory deficit, normal cognition, normal speech, no gross focal deficits. PSYCHIATRIC: alert cooperative and oriented to person, place and time. Euthymic mood Results & Data Results & Data ([place]) Vital Signs (Past 12 Hours) Vital Signs Temp Pulse Resp BP Pulse Ox 02/20/20 15:22 36.5 C 61 16 119/77 97 02/20/20 07:02 36.5 C 65 16 110/69 96 Medications Administered Current Inpatient Medications Acetaminophen (Tylenol) 1,000 mg PO Q8H PRN PRN Reason: pain or fever Stop: 02/22/20 21:59 Last Admin: 02/20/20 14:30 Dose: 1,000 mg Documented by: Apixaban (Eliquis) 5 mg PO BID@799,1999 [facility] Stop: 03/19/20 08:44 Last Admin: 02/20/20 08:05 Dose: 5 mg Documented by: Ascorbic Acid (Vitamin C) 500 mg PO BID@ [facility] Stop: 02/24/20 19:59 Last Admin: 02/20/20 08:05 Dose: 500 mg Documented by: Bisacodyl (Dulcolax) 10 mg [place] DAILY PRN PRN Reason: Constipation Stop: 02/22/20 15:48 Brimonidine Tartrate (Alphagan 0.2%) 1 drops OPB BID [facility] Stop: 03/20/20 20:59 Last Admin: 02/20/20 08:14 Dose: 1 drops Documented by: Carbidopa/Levodopa (Sinemet 25/100 Mg) 1 tab PO TID@0800,1499,1999 [facility] Stop: 02/22/20 19:59 Last Admin: 02/20/20 14:28 Dose: 1 tab Documented by: Dorzolamide/Timolol (Cosopt) 1 drops OPB BID [facility] Stop: 03/20/20 20:59 Last Admin: 02/20/20 08:14 Dose: 1 drops Documented by: Finasteride (Proscar) 5 mg PO QAM@0800 [facility] Stop: 02/24/20 07:59 Last Admin: 02/20/20 08:07 Dose: 5 mg Documented by: Glycerin (Glycerin Adult) 1 supp [place] DAILY PRN PRN Reason: Constipation Stop: 03/01/20 13:58 Lisinopril (Zestril) 5 mg PO DAILY@0800 [facility] Stop: 02/23/20 07:59 Last Admin: 02/20/20 08:08 Dose: 5 mg Documented by: Lorazepam (Ativan) 0.5 mg PO BID@ [facility] Stop: 02/22/20 19:59 Last Admin: 02/20/20 08:05 Dose: 0.5 mg Documented by: Magnesium Hydroxide (Milk Of Magnesia) 30 ml PO DAILY PRN PRN Reason: Constipation Stop: 02/22/20 15:48 Last Admin: 02/10/20 15:00 Dose: 30 ml Documented by: Magnesium Oxide (Mag-Ox) 400 mg PO QAM@0800 [facility] Stop: 02/24/20 12:44 Last Admin: 02/20/20 08:06 Dose: 400 mg Documented by: Naloxone HCl (Narcan) 0.1 mg IV UD PRN PRN Reason: Opioid Overdose Stop: 02/24/20 15:43 Pantoprazole Sodium (Protonix) 40 mg PO QDB@08 [facility] Stop: 02/24/20 07:59 Last Admin: 02/20/20 08:07 Dose: 40 mg Documented by: Polyethylene Glycol (Miralax Powder Packet) 17 gm PO DAILY PRN PRN Reason: Constipation Stop: 02/29/20 22:46 Last Admin: 01/31/20 13:29 Dose: 17 gm Documented by: Potassium Chloride (Klor-Con M10) 10 meq PO DAILY@0800 [facility] Stop: 02/23/20 07:59 Last Admin: 02/20/20 08:06 Dose: 10 meq Documented by: Senna/Docusate Sodium (Senokot S) 1 tab PO BID@ [facility] Stop: 02/22/20 19:59 Last Admin: 02/20/20 08:07 Dose: 1 tab Documented by: Sertraline HCl (Zoloft) 100 mg PO QAM@0800 [facility] Stop: 02/24/20 07:59 Last Admin: 02/20/20 08:09 Dose: 100 mg Documented by: Tramadol HCl (Ultram) 25 - 50 mg PO Q4H PRN PRN Reason: Pain Stop: 03/11/20 02:13 Last Admin: 02/19/20 19:22 Dose: 50 mg Documented by: Zinc Sulfate (Zinc Sulfate) 220 mg PO QAM@0800 [facility] Stop: 02/24/20 12:44 Last Admin: 02/20/20 08:09 Dose: 220 mg Documented by: (1) Closed right hip fracture Encounter type: initial encounter Qualified Code(s): S72.001A - Fracture of unspecified part of neck of right femur, initial encounter for closed fracture
[2020-02-21] MEDS: ZINC SULFATE 220 MG CAPSULE PO SCH (08:46)
[2020-02-21] MEDS: CARBIDOPA/LEVODOPA 25/100MG TAB PO SCH ×3 (08:47→20:05)
[2020-02-21] MEDS: DOCUSATE SODIUM/SENNA 50/8.6MG TAB PO SCH ×2 (08:47→20:05)
[2020-02-21] MEDS: PANTOprazole 40 MG TAB PO SCH (08:47)
[2020-02-21] MEDS: POTASSIUM CHLORIDE 10 MEQ TABCR PO SCH (08:47)
[2020-02-21] MEDS: ASCORBIC ACID 500 MG TAB PO SCH ×2 (08:47→20:05)
[2020-02-21] MEDS: lisinopriL 5 MG TAB PO SCH (08:48)
[2020-02-21] MEDS: SERTRALINE HCL 100 MG TABLET PO SCH (08:48)
[2020-02-21] MEDS: LORazepam 0.5 MG TAB PO SCH ×2 (08:48→20:05)
[2020-02-21] MEDS: MAGNESIUM OXIDE 400 MG TAB PO SCH (08:48)
[2020-02-21] MEDS: APIXABAN 5 MG TABLET PO SCH ×2 (08:48→20:05)
[2020-02-21] MEDS: FINASTERIDE 5 MG TAB PO SCH (08:49)
[2020-02-21] MEDS: BRIMONIDINE TARTRATE 0.2% 5ML OPB SCH ×2 (08:49→20:04)
[2020-02-21] MEDS: DORZOLAMIDE/TIMOLOL 22.3/6.8MG/ML 10 ML BTL OPB SCH ×2 (08:49→20:43)
--- NOTE | 2020-02-21 10:25 | Hospitalist Progress Note ---
Date of Service February 21, 2020 Assessment & Plan (1) Closed right hip fracture: Fell and suffered intertrochanteric fracture of right hip. Cephalomedullary nailing performed by Dr. Hanna on 01/24. Toe-touch nonweightbearing right lower extremity. Elvira removed 02/13. Continue PT, OT, analgesics. 25-OH vitamin D level = 85. Approved for 50% WB on the right leg per Ortho and is progressing in strength on a daily basis. (2) Glaucoma: eyedrops per home regimen. (3) COVID-19: asymptomatic throughout hospitalization was placed on empiric anticoagulation for significantly elevated D-dimer. (4) Anemia: 2/2 post operative state. Stable. (5) HTN (hypertension): at goal, cont lisinopril. (6) Parkinson disease: Continue carbidopa / levodopa per home regimen. Mentating at baseline. (7) Dementia: At his baseline mental status. Monitor for delirium. Doing very well clinically. Very articulate. (8) DVT prophylaxis: apixaban Ambulate as able. 50% WB on right leg allowed per Ortho Full Code Dispo-to rehab pending approval and placement. No options until after the weekend. P2P appeal on Sat. [facility] and Anticipated Discharge Date Admission Date: January 23, 2020 Subjective doing well denies pain tolerating PO i placed waffle bots on heels as reported heel pain this morning that is resolved. Review of Systems Review of Systems: All systems reviewed & are unremarkable except as noted in Subjective Physical Exam Physical Exam: CONSTITUTIONAL: WNWD, vitals as above, generally well- appearing EYES: normal conjunctivae, no scleral icterus ENT: external ear and nose normal, oropharynx clear, MMM RESPIRATORY: clear to auscultation bilaterally, no crackles, rales or wheezes, normal respiratory effort CARDIOVASCULAR: regular rate and rhythm, S1 and 2 heard without murmurs, gallops or rubs, no JVD, no peripheral edema GASTROINTESTINAL: soft, nontender, nondistended MUSCULOSKELETAL: deconditioned but improving in abilities SKIN: warm and dry, R hip incision is closed, elvira have been removed and wound is healing well. NEUROLOGIC: CN 2-12 grossly intact, no sensory deficit, normal cognition, normal speech, no gross focal deficits. PSYCHIATRIC: alert cooperative and oriented to person, place and time. Euthymic mood Results & Data Results & Data ([facility]) Vital Signs (Past 12 Hours) Vital Signs Temp Pulse Pulse Resp BP Pulse Ox 02/21/20 07:06 36.6 C 74 16 111/71 96 02/20/20 23:32 36.4 C L 63 19 104/64 94 Medications Administered Current Inpatient Medications Acetaminophen (Tylenol) 1,000 mg PO Q8H PRN PRN Reason: pain or fever Stop: 02/22/20 21:59 Last Admin: 02/20/20 14:30 Dose: 1,000 mg Documented by: Apixaban (Eliquis) 5 mg PO BID@ [facility] Stop: 03/19/20 08:44 Last Admin: 02/21/20 08:48 Dose: 5 mg Documented by: Ascorbic Acid (Vitamin C) 500 mg PO BID@799,1999 [facility] Stop: 02/24/20 19:59 Last Admin: 02/21/20 08:47 Dose: 500 mg Documented by: Bisacodyl (Dulcolax) 10 mg [place] DAILY PRN PRN Reason: Constipation Stop: 02/22/20 15:48 Brimonidine Tartrate (Alphagan 0.2%) 1 drops OPB BID [facility] Stop: 03/20/20 20:59 Last Admin: 02/21/20 08:49 Dose: 1 drops Documented by: Carbidopa/Levodopa (Sinemet 25/100 Mg) 1 tab PO TID@0800,1499,1999 [facility] Stop: 02/22/20 19:59 Last Admin: 02/21/20 08:47 Dose: 1 tab Documented by: Dorzolamide/Timolol (Cosopt) 1 drops OPB BID [facility] Stop: 03/20/20 20:59 Last Admin: 02/21/20 08:49 Dose: 1 drops Documented by: Finasteride (Proscar) 5 mg PO QAM@0800 [facility] Stop: 02/24/20 07:59 Last Admin: 02/21/20 08:49 Dose: 5 mg Documented by: Glycerin (Glycerin Adult) 1 supp IN DAILY PRN PRN Reason: Constipation Stop: 03/01/20 13:58 Lisinopril (Zestril) 5 mg PO DAILY@0800 [facility] Stop: 02/23/20 07:59 Last Admin: 02/21/20 08:48 Dose: 5 mg Documented by: Lorazepam (Ativan) 0.5 mg PO BID@ [facility] Stop: 02/22/20 19:59 Last Admin: 02/21/20 08:48 Dose: 0.5 mg Documented by: Magnesium Hydroxide (Milk Of Magnesia) 30 ml PO DAILY PRN PRN Reason: Constipation Stop: 02/22/20 15:48 Last Admin: 02/10/20 15:00 Dose: 30 ml Documented by: Magnesium Oxide (Mag-Ox) 400 mg PO QAM@0800 [facility] Stop: 02/24/20 12:44 Last Admin: 02/21/20 08:48 Dose: 400 mg Documented by: Naloxone HCl (Narcan) 0.1 mg IV UD PRN PRN Reason: Opioid Overdose Stop: 02/24/20 15:43 Pantoprazole Sodium (Protonix) 40 mg PO QDB@0800 [facility] Stop: 02/24/20 07:59 Last Admin: 02/21/20 08:47 Dose: 40 mg Documented by: Polyethylene Glycol (Miralax Powder Packet) 17 gm PO DAILY PRN PRN Reason: Constipation Stop: 02/29/20 22:46 Last Admin: 01/31/20 13:29 Dose: 17 gm Documented by: Potassium Chloride (Klor-Con M10) 10 meq PO DAILY@0800 [facility] Stop: 02/23/20 07:59 Last Admin: 02/21/20 08:47 Dose: 10 meq Documented by: Senna/Docusate Sodium (Senokot S) 1 tab PO BID@ [facility] Stop: 02/22/20 19:59 Last Admin: 02/21/20 08:47 Dose: 1 tab Documented by: Sertraline HCl (Zoloft) 100 mg PO QAM@0800 [facility] Stop: 02/24/20 07:59 Last Admin: 02/21/20 08:48 Dose: 100 mg Documented by: Tramadol HCl (Ultram) 25 - 50 mg PO Q4H PRN PRN Reason: Pain Stop: 03/11/20 02:13 Last Admin: 02/19/20 19:22 Dose: 50 mg Documented by: Zinc Sulfate (Zinc Sulfate) 220 mg PO QAM@0800 [facility] Stop: 02/24/20 12:44 Last Admin: 02/21/20 08:46 Dose: 220 mg Documented by: (1) Closed right hip fracture Encounter type: initial encounter Qualified Code(s): S72.001A - Fracture of unspecified part of neck of right femur, initial encounter for closed fracture
[2020-02-21] MEDS: TRAMADOL HCL 50 MG TABLET PO PRN (12:52)
[2020-02-22] MEDS: FINASTERIDE 5 MG TAB PO SCH (08:24)
[2020-02-22] MEDS: LORazepam 0.5 MG TAB PO SCH (08:24)
[2020-02-22] MEDS: POTASSIUM CHLORIDE 10 MEQ TABCR PO SCH (08:24)
[2020-02-22] MEDS: PANTOprazole 40 MG TAB PO SCH (08:25)
[2020-02-22] MEDS: SERTRALINE HCL 100 MG TABLET PO SCH (08:25)
[2020-02-22] MEDS: ZINC SULFATE 220 MG CAPSULE PO SCH (08:25)
[2020-02-22] MEDS: ASCORBIC ACID 500 MG TAB PO SCH (08:25)
[2020-02-22] MEDS: DOCUSATE SODIUM/SENNA 50/8.6MG TAB PO SCH (08:25)
[2020-02-22] MEDS: BRIMONIDINE TARTRATE 0.2% 5ML OPB SCH (08:26)
[2020-02-22] MEDS: MAGNESIUM OXIDE 400 MG TAB PO SCH (08:26)
[2020-02-22] MEDS: lisinopriL 5 MG TAB PO SCH (08:26)
[2020-02-22] MEDS: APIXABAN 5 MG TABLET PO SCH (08:26)
[2020-02-22] MEDS: CARBIDOPA/LEVODOPA 25/100MG TAB PO SCH ×2 (08:26→14:44)
[2020-02-22] MEDS: DORZOLAMIDE/TIMOLOL 22.3/6.8MG/ML 10 ML BTL OPB SCH (08:27)
--- NOTE | 2020-02-22 10:39 | Hospitalist Progress Note ---
Date of Service February 22, 2020 Assessment & Plan (1) Closed right hip fracture: Fell and suffered intertrochanteric fracture of right hip. Cephalomedullary nailing performed by Dr. Hanna on 01/24. Toe-touch nonweightbearing right lower extremity. Elvira removed 02/13. Continue PT, OT, analgesics. 25-OH vitamin D level = 85. Approved for 50% WB on the right leg per Ortho and is progressing in strength on a daily basis. (2) Glaucoma: eyedrops per home regimen. (3) COVID-19: asymptomatic throughout hospitalization was placed on empiric anticoagulation for significantly elevated D-dimer. (4) Anemia: 2/2 post operative state. Stable. (5) HTN (hypertension): at goal, cont lisinopril. (6) Parkinson disease: Continue carbidopa / levodopa per home regimen. Mentating at baseline. (7) Dementia: At his baseline mental status. Monitor for delirium. Doing very well clinically. Very articulate. (8) DVT prophylaxis: apixaban Ambulate as able. 50% WB on right leg allowed per Ortho Full Code Dispo-to rehab pending approval and placement. No options until after the weekend. P2P appeal on Sat. Sheila Rosas DO [facility] Admission and Anticipated Discharge Date Admission Date: January 23, 2020 Subjective Doing well, no changes. Reports no pain in his hip. Awaiting placement. Progressing well with physical therapy. Contacted center medical director twice with 2 messages left this morning in order to perform [id number]. center medical director did not call me back. Important points to appeal for consideration of inpatient rehab include the fact that the patient is progressing well is cleared for 50% weightbearing as tolerated per orthopedics, and would greatly benefit from an inpatient rehab program. Additionally, [facility] is a Parkinson's certified facility and has many beds available. Alternatives including the [facility] does not have any beds available per case management today or tomorrow. This will continue to extend his already long length of stay. Review of Systems Review of Systems: All systems reviewed & are unremarkable except as noted in Subjective Physical Exam Physical Exam: CONSTITUTIONAL: WNWD, vitals as above, generally well- appearing EYES: normal conjunctivae, no scleral icterus ENT: external ear and nose normal, oropharynx clear, MMM RESPIRATORY: clear to auscultation bilaterally, no crackles, rales or wheezes, normal respiratory effort CARDIOVASCULAR: regular rate and rhythm, S1 and 2 heard without murmurs, gallops or rubs, no JVD, no peripheral edema GASTROINTESTINAL: soft, nontender, nondistended MUSCULOSKELETAL: deconditioned but improving in abilities SKIN: warm and dry, R hip incision is closed, elvira have been removed and wound is healing well. NEUROLOGIC: CN 2-12 grossly intact, no sensory deficit, normal cognition, normal speech, no gross focal deficits. PSYCHIATRIC: alert cooperative and oriented to person, place and time. Euthymic mood Results & Data Results & Data ([facility]) Vital Signs (Past 12 Hours) Vital Signs Temp Pulse Pulse Resp BP Pulse Ox 02/22/20 07:21 36.5 C 67 18 133/75 94 02/21/20 23:58 36.7 C 69 18 106/64 95 Medications Administered Current Inpatient Medications Acetaminophen (Tylenol) 1,000 mg PO Q8H PRN PRN Reason: pain or fever Stop: 02/22/20 21:59 Last Admin: 02/20/20 14:30 Dose: 1,000 mg Documented by: Apixaban (Eliquis) 5 mg PO BID@ [facility] Stop: 03/19/20 08:44 Last Admin: 02/22/20 08:26 Dose: 5 mg Documented by: Ascorbic Acid (Vitamin C) 500 mg PO BID@799,1999 [facility] Stop: 02/24/20 19:59 Last Admin: 02/22/20 08:25 Dose: 500 mg Documented by: Bisacodyl (Dulcolax) 10 mg [place] DAILY PRN PRN Reason: Constipation Stop: 02/22/20 15:48 Brimonidine Tartrate (Alphagan 0.2%) 1 drops OPB BID [facility] Stop: 03/20/20 20:59 Last Admin: 02/22/20 08:26 Dose: 1 drops Documented by: Carbidopa/Levodopa (Sinemet 25/100 Mg) 1 tab PO TID@0800,1499,1999 [facility] Stop: 02/22/20 19:59 Last Admin: 02/22/20 08:26 Dose: 1 tab Documented by: Dorzolamide/Timolol (Cosopt) 1 drops OPB BID [facility] Stop: 03/20/20 20:59 Last Admin: 02/22/20 08:27 Dose: 1 drops Documented by: Finasteride (Proscar) 5 mg PO QAM@0800 [facility] Stop: 02/24/20 07:59 Last Admin: 02/22/20 08:24 Dose: 5 mg Documented by: Glycerin (Glycerin Adult) 1 supp [place] DAILY PRN PRN Reason: Constipation Stop: 03/01/20 13:58 Lisinopril (Zestril) 5 mg PO DAILY@0800 [facility] Stop: 02/23/20 07:59 Last Admin: 02/22/20 08:26 Dose: 5 mg Documented by: Lorazepam (Ativan) 0.5 mg PO BID@ [facility] Stop: 02/22/20 19:59 Last Admin: 02/22/20 08:24 Dose: 0.5 mg Documented by: Magnesium Hydroxide (Milk Of Magnesia) 30 ml PO DAILY PRN PRN Reason: Constipation Stop: 02/22/20 15:48 Last Admin: 02/10/20 15:00 Dose: 30 ml Documented by: Magnesium Oxide (Mag-Ox) 400 mg PO QAM@0800 [facility] Stop: 02/24/20 12:44 Last Admin: 02/22/20 08:26 Dose: 400 mg Documented by: Naloxone HCl (Narcan) 0.1 mg IV UD PRN PRN Reason: Opioid Overdose Stop: 02/24/20 15:43 Pantoprazole Sodium (Protonix) 40 mg PO QDB@0800 [facility] Stop: 02/24/20 07:59 Last Admin: 02/22/20 08:25 Dose: 40 mg Documented by: Polyethylene Glycol (Miralax Powder Packet) 17 gm PO DAILY PRN PRN Reason: Constipation Stop: 02/29/20 22:46 Last Admin: 01/31/20 13:29 Dose: 17 gm Documented by: Potassium Chloride (Klor-Con M10) 10 meq PO DAILY@0800 [facility] Stop: 02/23/20 07:59 Last Admin: 02/22/20 08:24 Dose: 10 meq Documented by: Senna/Docusate Sodium (Senokot S) 1 tab PO BID@ [facility] Stop: 02/22/20 19:59 Last Admin: 02/22/20 08:25 Dose: 1 tab Documented by: Sertraline HCl (Zoloft) 100 mg PO QAM@00 [facility] Stop: 02/24/20 07:59 Last Admin: 02/22/20 08:25 Dose: 100 mg Documented by: Tramadol HCl (Ultram) 25 - 50 mg PO Q4H PRN PRN Reason: Pain Stop: 03/11/20 02:13 Last Admin: 02/21/20 12:52 Dose: 50 mg Documented by: Zinc Sulfate (Zinc Sulfate) 220 mg PO QAM@0800 [facility] Stop: 02/24/20 12:44 Last Admin: 02/22/20 08:25 Dose: 220 mg Documented by: (1) Closed right hip fracture Encounter type: initial encounter Qualified Code(s): S72.001A - Fracture of unspecified part of neck of right femur, initial encounter for closed fracture
--- NOTE | 2020-02-22 16:00 | Discharge Summary ---
Date of Service February 22, 2020 Admission HPI Per Admitting Provider 74 yo M resident of [facility] with a h/o Parkinson's disease presents to the hospital with acute R hip pain after a fall and was found to have a R hip fracture. He was initially confused in the ER, and cleared up after some pain medications and Ativan, which he takes regularly. He denies a h/o chest pain or SOB in the last 6 months and is able to ambulate well with a walker. He reports having shuffled gait 2/2 Parkinson's which impedes his mobility. Per his son, he leads a mostly sedentary life and uses marijuana and prescription drugs to self medicate. Patient reports smoking marijuana last week. Appears to be at his baseline mental status per his son's description. Son reports a possible reaction to anesthesia in the past (prior hip surgery), however, it was nonspecific. No h/o CAD or blood clot in the past. Admission Exam Per Admitting Provider CONSTITUTIONAL: WNWD, vitals as above, generally well-appearing but in moderate pain with any movement. EYES: pupils are round and equal bilaterally, normal conjunctivae, no scleral icterus ENT: external ear and nose normal, MMM NECK: trachea midline RESPIRATORY: clear to auscultation bilaterally, no crackles, rales or wheezes, normal respiratory effort CARDIOVASCULAR: regular rate and rhythm, S1 and 2 heard without murmurs, gallops or rubs, no JVD, no peripheral edema GASTROINTESTINAL: soft, nontender, nondistended MUSCULOSKELETAL: rigid extremities difficult to passively extend and limited exam secondary to pain in setting of acute hip fracture. Deconditioned. SKIN: warm and dry NEUROLOGIC: patellar DTRs 2+ bilat. CN 2-12 grossly intact, normal cognition, normal speech PSYCHIATRIC: alert cooperative and oriented to person and place which is baseli ne per son. Principal Diagnosis Closed right hip fracture status post cephalo-medullary nailing performed on 01/24 COVID-19 Parkinson's disease with dementia Glaucoma Hypertension Anemia History of marijuana use Discharge Exam CONSTITUTIONAL: WNWD, vitals as above, generally well-appearing EYES: normal conjunctivae, no scleral icterus ENT: external ear and nose normal, MMM RESPIRATORY: clear to auscultation bilaterally, no crackles, rales or wheezes, normal respiratory effort CARDIOVASCULAR: regular rate and rhythm, S1 and 2 heard without murmurs, gallops or rubs, no JVD, no peripheral edema GASTROINTESTINAL: soft, nontender, nondistended MUSCULOSKELETAL: deconditioned but improving in abilities SKIN: warm and dry, R hip incision is closed, elvira have been removed and wound is healing well. NEUROLOGIC: CN 2-12 grossly intact, no sensory deficit, normal cognition, normal speech, no gross focal deficits. PSYCHIATRIC: alert cooperative and oriented to person, place and time. Euthymic mood Discharge Data Allergies Allergy/AdvReac Type Severity Reaction Status Date / Time Iodinated Contrast Media Allergy Unknown SKIN Verified 07/04/19 21:48 FLUSHES Consultations 01/23/20 12:13 ED Decision to Admit Stat 01/23/20 15:49 Consult Anesthesiology Routine Consult Case Management - Discharge Planning Routine Consult Orthopedic Surgery Routine 01/24/20 15:35 Consult Infectious Diseases Routine 01/25/20 15:44 Consult Case Management - Discharge Planning Routine Procedures Performed Operation Date: 01/25/20 09:25 Actual Procedures p Right Trochanteric Nail(Right) - Giles Hanna, Ordered Studies 01/23/20 10:01 CT cervical spine wo con Stat CT head/brain wo con Stat 01/25/20 12:00 FL fluoroscopy <1hr Routine FL hip RT 2-3V Routine Hospital Course (1) Closed right hip fracture: (2) COVID-19: (3) Anemia: (4) Parkinson disease: (5) Dementia: 74-year-old man with Parkinson's dementia [facility] suffering an intertrochanteric right hip fracture. He was screened for COVID-19 on admission and was positive. He was admitted to the COVID unit at [facility]. As he was asymptomatic and without infiltrates on chest x-ray no investigational therapies were offered. He did not require oxygen supplementation throughout his hospitalization. Orthopedics was consulted and Dr. Giles Ramirez performed a right hip cephalo-medullary nail procedure on 01/24. He recovered well postoperatively without complications. A d-dimer was o rdered as a prognostic indicator for COVID-19 and was elevated to 5290. Although an elevated d-dimer was not unexpected with recent surgery, the patient was at increased risk for VTE due to a combination hip fracture with repair, ongoing relative immobility due to Parkinson's disease and positive COVID-19 status. Therefore therapeutic dosing of subcutaneous Lovenox was initiated on 02/01. He continued on full dose anticoagulation was ultimately transition to Eliquis and should remain on Eliquis for a total of 3 months per local guidelines. He continued working with physical therapy during his prolonged hospitalization. His time in the hospital was extended per local rules requiring two COVID PCR nasopharyngeal swabs prior to discharge, which had to be 24 hours apart. At time of discharge from the hospital orthopedics had removed his elvira and allowed him 50% weightbearing with an assistive device. A postoperative x-ray on 02/13 demonstrated a fixed orthopedic implant with anatom ical alignment of the fracture site and routine healing. Follow-up in the orthopedics office in 4 to 6 weeks was recommended for repeat x-rays and activity restrictions were updated in the discharge instructions. When the patient was discharged from the COVID unit to the floor an echocardiogram was performed in light of positive COVID status. Left ventricular systolic function was normal with an ejection fraction of 60 to 65%. Grade 1 diastolic dysfunction was noted. Aortic valvular sclerosis was seen without significant aortic valvular stenosis. Trace tricuspid regurgitation was seen and Doppler findings did not suggest pulmonary hypertension. At time of discharge he was mentating at baseline, hemodynamically stable and afebrile, oxygenating on room air and tolerating p.o. He was discharged in stable condition to [facility] for his acute rehab program. Close primary care follow-up was recommended. Throughout his hospitalization I touch base with his family on several occasions and updated them regarding his progress. Total Time Total Time Spent Total Time Spent (In Minutes): 60 Total Time Includes: Examination of the Patient, Discharge Planning, Medication Reconciliation and Communication With Other Providers Discharge Plan Discharge Items Patient Disposition: Transfer Inpatient Rehab Fac Reason For Visit: R HIP FRACTURE S/P FALL Discharge Diagnosis: Closed right hip fracture status post cephalo-medullary nailing performed on 01/24 COVID-19 Parkinson's disease with dementia Glaucoma Hypertension Anemia History of marijuana use Activity: As commented below Activity Comment: Per receiving facility and orthopedic postoperative recommendations Non-emergency contact: Primary Care Provider Call non-emergency contact if: you have any medication questions, your symptoms worsen, your pain is not controlled, your pain is worsening, your pain is unusual for you, your pain is concerning for you and you have a fever Follow-up/Referrals: [facility] W[facility] BAKER [Primary Care Provider] - Diet: Regular Addtl Attending Provider Instructions: [facility] DISCHARGE INSTRUCTIONS: HIP FRACTURE SELF CARE INSTRUCTIONS: A. You are to ambulate with a walker or crutches for approximately 6 weeks. B. You are Partial 50% WEIGHT BEARING on your operative lower extremity for at least 6 weeks. C. Wear low heeled shoes with non-slip soles D. Be sure that your floors are free of things that could trip you throw rugs, electrical cords, and small objects. Avoid wet and waxed floors, especially with crutches/walker/cane. E. Try to walk several times a day with rest periods between. F. You may shower 48 hours after surgery and get the incision area wet, but DO NOT soak or submerge incision area in water. (No baths, swimming pools, hot tubs) G. You may have a large, band-aid like dressing over your incision (Aquacel). This will remain on your incision for 7 days, and then can be removed. You CAN shower with this on. If incision is leaking through the dressing, please call the office . H. Do NOT apply soap or any ointment/lotions directly over incision. I. You may use ice as needed to operative site. SPECIAL CARE INSTRUCTIONS: VERY IMPORTANT TO READ AND REVIEW A. You may be at risk for phlebitis or blood clots. a. Wear surgical stockings (ADELA hose) for 2 weeks after surgery to improve circulation and reduce swelling. b. Take LOVENOX 40mg SQ daily for 4 weeks or as directed. This is your blood thinner. c. If you are on Coumadin- you will have daily/weekly blood work to monitor your levels. This will be done by either your family physician/wildlife protector (if you are on Coumadin chronically) versus your orthopedic surgeon. Expect a phone call the day of or the day after your blood work is drawn to adjust your dose accordingly. B. There are a few signs you need to watch for after you are home. Call [facility] at [phone] if you experience any of the following: a. If you have a temperature of 101 degrees or higher. b. Sudden increase in pain in your hip not relieved by rest or pain medication. c. Any fluid or drainage from the incision; redness of the incision. d. Shortness of breath or chest pain. B. Please call [facility] at [phone] if you have any questions or concerns about your operation or recovery. C. Call your physician if: a. Temperature is greater than 101 degrees (F). b. Pain is not relieved by prescribed pain medications. c. Increase drainage or redness from incision. d. Unanswered questions or concerns. D. Pain Medication: a. You will be prescribed pain medication upon discharge that should last till your first post-operative appointment. b. If you experience nausea and/or skin rash, discontinue this medication and contact our office for an alternative medication. c. Caution- narcotic pain medication can cause constipation. FOLLOW UP VISIT: The patient will need follow up XRs 4 to 6 weeks from date of discharge, special arrangements/precautions will need to be made. Please call [facility] at [phone] to for follow up instructions and appointment. Addtl Disability Coordinator Provider Instructions: Please take all medications as instructed on discharge list below. You are being placed on a short-term blood thinner which is being given to treat presumed thromboembolic disease related to COVID-19 infection. You will only require Eliquis for 3 months total. Please discuss with primary care doctor prior to stopping this. It is recommended that you follow-up with your primary care physician within 1 week of discharge from current facility. Please follow-up with orthopedics as recommended above. It was a pleasure taking care of you! Please call if you have any questions or problems. You can reach a [facility] hospitalist on duty at [facility] 24 hours a day by calling [phone]. Take care of yourself. Sheila Rosas DO [facility] Pending Studies at Discharge: No Stand-Alone Forms: My [facility] Skilled Items Patient informed of condition?: Yes DNR: No Discharge Level of Care: Acute rehab Communicable Disease: No Discharge Prognosis: Stable Lines: None Urinary Catheter: No Medications and DC Order Prescriptions: New Eliquis 5 mg Tablet 5 mg PO BID@0800,2000 Qty: 60 RF: 1 Continued sertraline 100 mg tablet 100 mg PO QAM RF: 0 pantoprazole 40 mg Tablet,Delayed Release (Dr/Ec) 40 mg PO QAM RF: 0 finasteride 5 mg tablet 5 mg PO QAM RF: 0 melatonin 5 mg Tablet 5 mg PO HS RF: 0 carbidopa-levodopa 25-100 mg tablet 1 tab PO TID RF: 0 potassium chloride 10 mEq Tablet Extended Release 10 meq PO QAM RF: 0 acetaminophen [Acetaminophen Extra Strength] 500 mg Tablet 500 mg PO Q4H MDD 3 GMS APAP/24 HOURS PRN (Reason: Pain) RF: 0 ergocalciferol (vitamin D2) [Vitamin D2] 50,000 unit Capsule 50,000 unit PO WK RF: 0 lorazepam 0.5 mg tablet 0.5 mg PO BID RF: 0 dorzolamide-timolol 22.3-6.8 mg/mL drops 1 drp OPB BID RF: 0 lisinopril 5 mg Tablet 5 mg PO QAM RF: 0 Combigan 0.2-0.5 % drops 1 drp OPB BID RF: 0 sennosides-docusate sodium [Senna Plus] 8.6-50 mg tablet 1 tab PO BID RF: 0 Discharge Orders: Discharge Order (Routine); Ordered 02/22/20 Ordered By: Sheila Rosas Admission Data Admit Date/Time: 01/23/20 13:20 Attending Provider: Sheila Rosas Admit Provider: Sheila Rosas Primary Care Provider: [facility] BAK[facility] Other Providers: Ricky Hansen ; Giles Hanna ; Kati Yang Other Interventions: Discharge Summary Assessment (RN) Last Done: 02/22/20 17:19 DC Date/Time DO NOT enter until pt leaves facility: 02/22/20 18:18
[2020-02-22] MEDS: TRAMADOL HCL 50 MG TABLET PO PRN (17:27)
== END 2020-02-22 18:18 | DRG 480 ==
LOC: ED 09:27 → SUATTDRO 13:20 → 2S 13:20 → 2E 01-24 11:28 → 3E 02-18 19:15

== ENCOUNTER 2021-04-15 19:39 | Inpatient (IN) ==
--- NOTE | 2021-04-15 19:56 | Emergency Department Note ---
History of Present Illness General Chief complaint: Urinary Symptoms Stated complaint: POOR URINE OUT-PUT/BLOOD IN URINE Time Seen by Provider: 04/15/21 19:40 Source: patient History of Present Illness Provider complaint: Urinary symptoms Onset (ago): day(s) Location: genitals Severity: moderate Pain Consistency: + intermittent Maximum Pain Intensity: 3 Quality: + other (Frequency with incontinence) Relieved By: + none Associated symptoms: + cough (For 3 weeks); no chest pain, no fever/chills, no headaches, no nausea/vomiting or no shortness of breath This is a 75-year-old male with a history of Parkinson's disease living at [facility] presenting with urinary symptoms for the past day. He complains of urinary frequency and occasional incontinence. He denies burning or hematuria. He was diagnosed with a UTI about a week ago and placed on antibiotics which he has finished. He also complains of abdominal pain in the lower abdomen. He has had it intermittently about 3 times since last week. It does not bother him significantly. He has had no associated fever, vomiting, shortness of breath, or chest pain. He has had a cough for about 3 weeks which is nonproductive. He has had his Covid vaccination. Home Medications Medication Instructions Recorded Confirmed Type carbidopa 25 mg-levodopa 100 mg 1 tab PO TID 07/08/18 04/15/21 History tablet ergocalciferol (vitamin D2) 1,250 50,000 unit PO MO 07/08/18 04/15/21 History mcg (50,000 unit) capsule (Vitamin D2) potassium chloride 10 mEq 10 meq PO QAM 07/08/18 04/15/21 History tablet,extended release finasteride 5 mg tablet 5 mg PO QAM 06/26/19 04/15/21 History pantoprazole 40 mg tablet,delayed 40 mg PO DAILYBB 06/26/19 04/15/21 History release sertraline 100 mg tablet 100 mg PO QAM 06/26/19 04/15/21 History dorzolamide 22.3 mg-timolol 6.8 1 drp OPB BID 01/23/20 04/15/21 History mg/mL eye drops lisinopril 5 mg tablet 5 mg PO QAM 01/23/20 04/15/21 History acetaminophen 325 mg tablet 650 mg PO Q4H PRN MDD 3 GR/24 HRS 08/09/20 07/31/21 History (Tylenol) docusate sodium 100 mg capsule 100 mg PO BID 04/24/20 04/15/21 History loratadine 10 mg tablet 10 mg PO QAM 04/24/20 04/15/21 History tamsulosin 0.4 mg capsule (Flomax) 0.4 mg PO HS 04/24/20 04/15/21 History brimonidine 0.2 % eye drops 1 drp OPB Q12H 03/14/21 04/15/21 History duloxetine 20 mg capsule,delayed 20 mg PO BID 03/14/21 04/15/21 History release (Cymbalta) hydrocortisone 2.5 % topical cream 1 applic TOPICAL BID PRN 04/15/21 04/15/21 History miconazole nitrate 2 % topical 1 applic TOPICAL BID 04/15/21 04/15/21 History powder (Desenex) Allergies Allergy/AdvReac Type Severity Reaction Status Date / Time Iodinated Contrast Media Allergy Intermediate IV OR Verified 04/15/21 20:41 ORAL--SKIN FLUSHES Past Med/Surg History Medical History (Updated 04/15/21 @ 22:44 by Fred Garcia MD) Alzheimer disease Anxiety Dementia HTN (hypertension) Parkinson disease Substance abuse Surgical History History of total left hip arthroplasty Family History Other No pertinent family history in first degree relatives Social History Smoking Status: Current every day smoker Tobacco Type: E-cigarettes / Vaping Hx Alcohol Use: Yes Hx Substance Use: Yes Last Used Substance: Unknown Last Used Substance Other:: last used october 2017 Substance Use Type Other:: Daily for 50 years Preferred Language: Tajik Communication Ability: Effective Alcohol And Drug Counselor Required: No Beliefs That Will Affect Care: None marital status: Current Living Situation: Personal Care Facility current occupational status: employed Feels Safe at Home: Yes Assistive Devices: Walker Review of Systems See HPI for pertinent positives & negatives. and A total of 10 systems reviewed and were otherwise negative Physical Exam Vital Signs Vital Signs - 24 hr 04/15/21 19:43 04/15/21 20:01 04/15/21 21:30 Temperature 37.1 C 37.1 C Temperature Source Oral Oral Pulse Rate 86 78 Pulse Rate [Right Finger] 84 79 Pulse Rhythm Regular Regular Pulse Rhythm [Right Finger] Regular Pulse Strength Normal Pulse Strength [Right Finger] Normal Respiratory Rate 20 22 23 Respiratory Effort / Characteristics Non-Labored Non-Labored Respiratory Depth Normal Normal Respiratory Pattern Regular Regular Blood Pressure 158/92 H Blood Pressure [Left Arm] 135/79 160/82 H Blood Pressure Mean 114 Blood Pressure Mean [Left Arm] 97 108 Blood Pressure Position Sitting Blood Pressure Position [Left Arm] Sitting Sitting Pulse Oximetry 96 94 95 Oxygen Delivery Method Room Air Room Air Room Air Sepsis Recent Fever Within 48 Hours No Sepsis New/Unexplained Change in Mental Status Yes Sepsis Action Taken by Nursing No Action Required Constitutional: Vital signs reviewed. Occasionally coughing. Eyes: Pupils are equal round reactive to light. Conjunctiva are noninjected. ENT: Pharynx is clear without erythema or exudate. Mucous membranes are moist. Neck supple without meningeal signs. Respiratory: Clear to auscultation bilaterally. Breath sounds are equal bilaterally. Cardiovascular: Regular rate and rhythm. No rubs or gallops. GI: Soft, nondistended and nontender. Bowel sounds are present. Musculoskeletal: No peripheral edema. No lower extremity tenderness. Integumentary: No cyanosis. or jaundice. Neurological: The patient is awake and alert. Psychiatric: Normal affect. Not anxious appearing. Medical Decision Making Differential Diagnosis UTI, pyelonephritis, kidney stone, diverticulitis, pneumonia Medical Records Attestation: I reviewed the patient's medical records. I did perform a limited focused review of portions of the patient's old chart on the electronic medical record. The patient was seen here March 14 for ESBL E. coli in his urine. Arrangements were made for ertapenem to be given as an outpatient IV. Home Medications Current Medication List: was personally reviewed by me Laboratory Data Attestation: I reviewed the patient's lab results. Result diagrams: 04/15/21 21:05 04/15/21 21:05 Lab Results 04/15/21 04/15/21 04/15/21 Range/Units 21:05 21:05 21:10 WBC 8.03 (4.8-10.8) K/uL RBC 4.27 L (4.7-6.1) M/uL Hgb 12.8 L (14.0-18.0) g/dL Hct 38.1 L (42-52) % MCV 89.2 (80-100) fL MCH 30.0 (25-34) pg MCHC 33.6 (32-36) g/dL RDW Std Deviation 44.6 (36.4-46.3) fL RDW Coeff of David 13.7 (11.5-14.5) % Plt Count 185 (130-400) K/uL MPV 9.5 (7.4-10.4) fL Immature Gran % (Auto) 0.4 % Neut % (Auto) 79.2 % Lymph % (Auto) 11.0 % [place] % (Auto) 9.1 % Eos % (Auto) 0.2 % Baso % (Auto) 0.1 % Neut # (Auto) 6.36 (1.4-6.5) K/uL Lymph # (Auto) 0.88 L (1.2-3.4) K/uL [place] # (Auto) 0.73 H (0.11-0.59) K/uL Eos # (Auto) 0.02 (0-0.5) K/uL Baso # (Auto) 0.01 (0-0.2) K/uL Immature Gran # (Auto) 0.03 H (0.00-0.02) K/uL Sodium 136 (136-145) mmol/L Potassium (3.5-5.1) mmol/L Chloride 105 (98-107) mmol/L Carbon Dioxide 27 (21-32) mmol/L Anion Gap 4.0 (3-11) BUN 16 (7-18) mg/dl Creatinine 0.99 (0.6-1.4) mg/dl Est Cr Clr Drug Dosing 76.1 ml/min Est GFR ( Amer) 86.6 ml/min Est GFR (Non-Af Amer) 74.7 ml/min BUN/Creatinine Ratio 16.2 (10-20) Glucose 100 H (70-99) mg/dl Calcium 8.8 (8.5-10.1) mg/dl Total Bilirubin 0.6 (0.2-1) mg/dl AST (15-37) U/L ALT 10 L (12-78) U/L Alkaline Phosphatase 90 (45-117) U/L Total Protein 7.3 (6.4-8.2) gm/dl Albumin 3.2 L (3.4-5.0) gm/dl Globulin 4.1 H (2.5-4.0) gm/dl Albumin/Globulin Ratio 0.8 L (0.9-2) Lipase 129 (73-393) U/L Urine Color Yellow Urine Appearance Turbid A (Clear) Urine pH 6.0 (4.5-7.5) Ur Specific [place] 1.015 (1.000-1.030) Urine Protein 2+ H (Negative) Urine Glucose (UA) Negative (Negative) Urine Ketones Trace H (Negative) Urine Blood 1+ H (Negative) Urine Nitrite Positive A (Negative) Urine Bilirubin Negative (Negative) Urine Urobilinogen Negative (Negative) Ur Leukocyte Esterase 3+ H (Negative) Urine WBC (Auto) >30 H (0-5) /hpf Urine RBC (Auto) 5-10 H (0-4) /hpf U Hyaline Cast (Auto) 0 (0-5) /lpf U Epithel Cells (Auto) >30 H (0-5) /lpf Urine Bacteria (Auto) 4+ H (Negative) Urine Yeast Not Reportable COVID-19 Eval Order 04/15/21 Range/Units 21:18 WBC (4.8-10.8) K/uL RBC (4.7-6.1) M/uL Hgb (14.0-18.0) g/dL Hct (42-52) % MCV (80-100) fL MCH (25-34) pg MCHC (32-36) g/dL RDW Std Deviation (36.4-46.3) fL RDW Coeff of David (11.5-14.5) % Plt Count (130-400) K/uL MPV (7.4-10.4) fL Immature Gran % (Auto) % Neut % (Auto) % Lymph % (Auto) % [place] % (Auto) % Eos % (Auto) % Baso % (Auto) % Neut # (Auto) (1.4-6.5) K/uL Lymph # (Auto) (1.2-3.4) K/uL [place] # (Auto) (0.11-0.59) K/uL Eos # (Auto) (0-0.5) K/uL Baso # (Auto) (0-0.2) K/uL Immature Gran # (Auto) (0.00-0.02) K/uL Sodium (136-145) mmol/L Potassium (3.5-5.1) mmol/L Chloride (98-107) mmol/L Carbon Dioxide (21-32) mmol/L Anion Gap (3-11) BUN (7-18) mg/dl Creatinine (0.6-1.4) mg/dl Est Cr Clr Drug Dosing ml/min Est GFR ( Amer) ml/min Est GFR (Non-Af Amer) ml/min BUN/Creatinine Ratio (10-20) Glucose (70-99) mg/dl Calcium (8.5-10.1) mg/dl Total Bilirubin (0.2-1) mg/dl AST (15-37) U/L ALT (12-78) U/L Alkaline Phosphatase (45-117) U/L Total Protein (6.4-8.2) gm/dl Albumin (3.4-5.0) gm/dl Globulin (2.5-4.0) gm/dl Albumin/Globulin Ratio (0.9-2) Lipase (73-393) U/L Urine Color Urine Appearance (Clear) Urine pH (4.5-7.5) Ur Specific [place] (1.000-1.030) Urine Protein (Negative) Urine Glucose (UA) (Negative) Urine Ketones (Negative) Urine Blood (Negative) Urine Nitrite (Negative) Urine Bilirubin (Negative) Urine Urobilinogen (Negative) Ur Leukocyte Esterase (Negative) Urine WBC (Auto) (0-5) /hpf Urine RBC (Auto) (0-4) /hpf U Hyaline Cast (Auto) (0-5) /lpf U Epithel Cells (Auto) (0-5) /lpf Urine Bacteria (Auto) (Negative) Urine Yeast COVID-19 Eval Order Covid19 [facility] Data Radiologist's Impression: Abdomen/Pelvis CT 04/15/21 19:49 CT SCAN OF THE ABDOMEN AND PELVIS WITHOUT IV CONTRAST CLINICAL HISTORY: Lower abdominal pain. COMPARISON STUDY: Renal ultrasound dated 09/05/2016. TECHNIQUE: CT scan of the abdomen and pelvis is performed from the lung bases to the proximal femora. Images are reviewed in the axial, sagittal, and coronal planes. IV contrast was not administered for this examination. A dose lowering technique was utilized adhering to the principles of ALARA. CT DOSE: 983.40 mGycm FINDINGS: Lung bases: The heart is mildly enlarged and without pericardial effusion. The coronary arteries are densely calcified. There is a small hiatal hernia. The lung bases are clear noting dependent atelectasis. Liver: The unenhanced liver is normal in size, contour, and attenuation. There is no intrahepatic biliary ductal dilatation. There are scattered calcified hepatic granulomas. Gallbladder: Unremarkable. Spleen: Normal in size and attenuation. There are calcified splenic granulomas. Pancreas: The unenhanced pancreas is moderately atrophic and grossly unremarkable. Adrenal glands: Unremarkable. Kidneys: The unenhanced kidneys demonstrate cortical atrophy and are without hydronephrosis. There are no renal calculi identified. There is no evidence of contour deforming renal mass lesion. Abdominal vasculature: The abdominal aorta is normal in course and caliber noting advanced atherosclerotic calcification. Bowel: There is no bowel obstruction. The appendix is well-visualized and normal. Peritoneum: There is no intraperitoneal free air or abdominal ascites. Lymphadenopathy: None. Pelvic viscera: Evaluation of the pelvis is degraded by streak artifact from a left hip arthroplasty. The prostate gland is mildly enlarged and heterogeneous noting median lobe hypertrophy. The bladder wall appears thickened and trabeculated indicating chronic outlet obstruction. Skeletal structures: The skeletal structures are osteopenic. There is lumbosacral spondylosis with evidence of L4-L5 spinal fusion. No lytic or blastic lesions are seen. A left hip arthroplasty is in place. There is chronic posttraumatic deformity of the right proximal femur with intertrochanteric and intramedullary nails in place. There are healed right pubic ring fractures. There are numerous healed left-sided rib fractures. IMPRESSION: 1. There are no acute infectious or inflammatory findings in the abdomen or pelvis. 2. Chronic changes as above. ACT 112: Negative or not required by law. Electronically signed by: Sushant Woodruff M.D. 04/15/2021 9:35 PM Chest X-Ray 04/15/21 19:50 SINGLE VIEW CHEST CLINICAL HISTORY: Cough. FINDINGS: 2 AP, portable, upright chest radiographs are compared to study dated 04/24/2020 and correlated with chest CT dated 07/04/2019. The examination is degraded by portable technique and patient rotation. The heart is mildly enlarged noting atherosclerotic calcification of the thoracic aorta. The pulmonary vasculature is noncongested. There are calcified mediastinal lymph nodes. Chronic interstitial thickening is similar to previous. Atelectasis is noted at the left lung base. No airspace consolidation or large pleural effusion is identified. No pneumothorax is seen. The skeletal structures are osteopenic. The bony thorax is grossly intact. IMPRESSION: Mild cardiomegaly with no acute cardiopulmonary abnormality. ACT 112: Negative or not required by law. Electronically signed by: Sushant Woodruff M.D. 04/15/2021 8:15 PM MDM Narrative I did evaluate the patient as noted above. The patient is presenting with urinary frequency and occasional incontinence starting today. He was just treated for UTI about a week ago. He also complains of intermittent abdominal pain which she has had since last week. He does not have any tenderness on examination of his abdomen currently. IV access was established. I did order and personally reviewed the images of the patient's chest x-ray as described above. There is no evidence of pneumonia or acute process. I did order a urine analysis. He does have a UTI. I did order and review the patient's blood work as noted in the electronic medical record. His white blood cell count is not elevated. Hemoglobin is relatively stable at 12.8. Platelet count is within normal limits. Electrolytes and LFTs are unremarkable. I did order a CT of the abdomen and pelvis. I did review the images myself as well as the radiology report as described above. There is no evidence of acute process. I did call [facility] but they were unable to provide us with the name of the antibiotic. They stated was administered by home [employer] IV and they do not have access to that information. I did have the case assistant call the [email or web address] to try to determine what it was. In the meantime I did treat him with Zosyn 4.5 g IV based on his last urine culture. He will be hospitalized. I did discuss case with the hospitalist. Impression & Plan UTI due to extended-spectrum beta lactamase (ESBL) producing Escherichia coli, Abdominal pain Discharge Plan Visit Data Chief Complaint: Urinary Symptoms Stated Complaint: POOR URINE OUT-PUT/BLOOD IN URINE ED Provider: Fred Garcia Discharge Problem: UTI due to extended-spectrum beta lactamase (ESBL) producing Escherichia coli, Abdominal pain Patient Disposition: Being Evaluated by Hospitalist Forms Stand Alone Forms: [facility] Prescriptions Prescriptions: No Action sertraline 100 mg tablet 100 mg PO QAM RF: 0 pantoprazole 40 mg Tablet,Delayed Release (Dr/Ec) 40 mg PO DAILYBB RF: 0 finasteride 5 mg tablet 5 mg PO QAM RF: 0 acetaminophen [Tylenol] 325 mg Tablet 650 mg PO Q4H MDD 3 GR/24 HRS PRN (Reason: Pain) RF: 0 tamsulosin [Flomax] 0.4 mg Capsule 0.4 mg PO HS RF: 0 docusate sodium 100 mg Capsule 100 mg PO BID RF: 0 loratadine 10 mg Tablet 10 mg PO QAM RF: 0 carbidopa-levodopa 25-100 mg tablet 1 tab PO TID RF: 0 potassium chloride 10 mEq Tablet Extended Release 10 meq PO QAM RF: 0 ergocalciferol (vitamin D2) [Vitamin D2] 50,000 unit Capsule 50,000 unit PO MO RF: 0 dorzolamide-timolol 22.3-6.8 mg/mL drops 1 drp OPB BID RF: 0 lisinopril 5 mg Tablet 5 mg PO QAM RF: 0 brimonidine 0.2 % drops 1 drp OPB Q12H RF: 0 duloxetine [Cymbalta] 20 mg capsule,delayed release(DR/EC) 20 mg PO BID RF: 0 Desenex 2 % Powder 1 applic TOPICAL BID RF: 0 hydrocortisone 2.5 % cream 1 applic TOPICAL BID PRN (Reason: irritation) RF: 0 Referrals Referrals: [facility] [Primary Care Provider] -
--- NOTE | 2021-04-15 20:17 | XRay Report ---
SINGLE VIEW CHEST CLINICAL HISTORY: Cough. FINDINGS: 2 AP, portable, upright chest radiographs are compared to study dated 04/24/2020 and correlat ed with chest CT dated 07/04/2019. The examination is degraded by portable technique and patient rota tion. The heart is mildly enlarged noting atherosclerotic calcification of the thoracic aorta. The pu lmonary vasculature is noncongested. There are calcified mediastinal lymph nodes. Chronic interstitia l thickening is similar to previous. Atelectasis is noted at the left lung base. No airspace consolid ation or large pleural effusion is identified. No pneumothorax is seen. The skeletal structures are o steopenic. The bony thorax is grossly intact. IMPRESSION: Mild cardiomegaly with no acute cardiopulmonary abnormality. ACT 112: Negative or not required by law. Electronically signed by: Sushant Woodruff M.D. 04/15/2021 8:15 PM
[2021-04-15 21:28] LABS: Basophils # (auto) 0.01 K/uL (0-0.2); Basophils % (auto) 0.1 %; Eosinophils # (auto) 0.02 K/uL (0-0.5); Eosinophils % (auto) 0.2 %; Hematocrit (blood only) 38.1 % (42-52); Hemoglobin 12.8 g/dL (14.0-18.0); Immature Granulocytes # (auto) 0.03 K/uL (0.00-0.02); Immature Granulocytes % (auto) 0.4 %; Lymphocytes # (auto) 0.88 K/uL (1.2-3.4); Mean Corpuscular Hgb Conc 33.6 g/dL (32-36); Mean Corpuscular Volume 89.2 fL (80-100); Mean Platelet Volume 9.5 fL (7.4-10.4); Monocytes # (auto) 0.73 K/uL (0.11-0.59); Monocytes % (auto) 9.1 %; Neutrophils # (auto) 6.36 K/uL (1.4-6.5); Neutrophils % (auto) 79.2 %; Platelet Count 185 K/uL (130-400); RDW Coefficient of Variation 13.7 % (11.5-14.5); RDW Standard Deviation 44.6 fL (36.4-46.3); Red Blood Count 4.27 M/uL (4.7-6.1); White Blood Count 8.03 K/uL (4.8-10.8)
--- NOTE | 2021-04-15 21:36 | CT Scan Report ---
CT SCAN OF THE ABDOMEN AND PELVIS WITHOUT IV CONTRAST CLINICAL HISTORY: Lower abdominal pain. COMPARISON STUDY: Renal ultrasound dated 09/05/2016. TECHNIQUE: CT scan of the abdomen and pelvis is performed from the lung bases to the proximal femora. Images are reviewed in the axial, sagittal, and coronal planes. IV contrast was not administered for this examination. A dose lowering technique was utilized adhering to the principles of ALARA. CT DOSE: 983.40 mGycm FINDINGS: Lung bases: The heart is mildly enlarged and without pericardial effusion. The coronary arteries are densely calcified. There is a small hiatal hernia. The lung bases are clear noting dependent atelecta sis. Liver: The unenhanced liver is normal in size, contour, and attenuation. There is no intrahepatic shivani iary ductal dilatation. There are scattered calcified hepatic granulomas. Gallbladder: Unremarkable. Spleen: Normal in size and attenuation. There are calcified splenic granulomas. Pancreas: The unenhanced pancreas is moderately atrophic and grossly unremarkable. Adrenal glands: Unremarkable. Kidneys: The unenhanced kidneys demonstrate cortical atrophy and are without hydronephrosis. There ar e no renal calculi identified. There is no evidence of contour deforming renal mass lesion. Abdominal vasculature: The abdominal aorta is normal in course and caliber noting advanced atheroscle rotic calcification. Bowel: There is no bowel obstruction. The appendix is well-visualized and normal. Peritoneum: There is no intraperitoneal free air or abdominal ascites. Lymphadenopathy: None. Pelvic viscera: Evaluation of the pelvis is degraded by streak artifact from a left hip arthroplasty. The prostate gland is mildly enlarged and heterogeneous noting median lobe hypertrophy. The bladder wall appears thickened and trabeculated indicating chronic outlet obstruction. Skeletal structures: The skeletal structures are osteopenic. There is lumbosacral spondylosis with ev idence of L4-L5 spinal fusion. No lytic or blastic lesions are seen. A left hip arthroplasty is in pl mik. There is chronic posttraumatic deformity of the right proximal femur with intertrochanteric and intramedullary nails in place. There are healed right pubic ring fractures. There are numerous healed left-sided rib fractures. IMPRESSION: 1. There are no acute infectious or inflammatory findings in the abdomen or pelvis. 2. Chronic changes as above. ACT 112: Negative or not required by law. Electronically signed by: Sushant Woodruff M.D. 04/15/2021 9:35 PM
[2021-04-15 21:50] LABS: Appearance Urine Turbid (Clear); Bacteria Urine Automated 4+ (Negative); Bilirubin Urine Negative (Negative); Blood Urine 1+ (Negative); Color Urine Yellow; Epithelial Cell Urine Auto >30 /lpf (0-5); Glucose Urine UA Negative (Negative); Ketones Urine Trace (Negative); Leukocyte Esterase Urine 3+ (Negative); Nitrite Urine Positive (Negative); Protein Urine 2+ (Negative); Specific Gravity Urine 1.015 (1.000-1.030); Urobilinogen Urine Negative (Negative); WBC Urine Automated >30 /hpf (0-5)
[2021-04-15 21:59] LABS: Albumin Globulin Ratio 0.8 (0.9-2); Albumin Level 3.2 gm/dl (3.4-5.0); BUN Creatinine Ratio 16.2 (10-20); Bilirubin,Total 0.6 mg/dl (0.2-1); Calcium 8.8 mg/dl (8.5-10.1); Creatinine Clr Calc Pharmacy 76.1 ml/min; Est GFR (African American) 86.6 ml/min; Est GFR (Non-African American) 74.7 ml/min; Globulin 4.1 gm/dl (2.5-4.0); Total Protein 7.3 gm/dl (6.4-8.2)
[2021-04-15 22:15] LABS: Cast Urine Automated 0 /lpf (0-5)
[2021-04-15] MEDS ORDERED: PIPERACILL/TAZOBAC CONSULT ACTIVE PRN (22:35)
[2021-04-15] MEDS ORDERED: PIPERACILLIN/TAZOBACTAM 4.5 GM in DEXTROSE 5% 100 ML IV ONE (22:35)
[2021-04-15] MEDS ORDERED: PIPERACILLIN/TAZOBACTAM 4.5 GM/120ML D5W IV ONE (22:45)
--- NOTE | 2021-04-15 23:53 | History & Physical Report ---
Date of Service April 15, 2021 Assessment & Plan (1) Complicated UTI (urinary tract infection): Plan: Recurrent issue No sepsis for now Parkinson's disease, stable as per recent outpatient [facility] evaluation 2 weeks ago hypertension, stable chronic anemia, hemoglobin at baseline GMF Following CS, Zosyn DVT prophylaxis per Lovenox subcu Full code Text document was generated using [employer] voice recognition software. It may contain grammatical or spelling errors. Kindly contact undersigned for clarification of any documentation item in question. History of Present Illness Chief Complaint: Poor urine output, hematuria as per records Primary Care Provider: [facility] History obtained from patient and records. Patient is a reliable historian. Medical history significant for Parkinson's disease, hypertension, chronic anemia (baseline hemoglobin 12-13). Last confinement February 2024 right hip fracture status post surgery. Patient seen at the ER last February 2021 for ESBL E. coli UTI. Patient discharged back to care home facility to complete IV Ertapenem for 10-day course. Yesterday patient complained to staff of urinary frequency and incontinence. No fever, no chills. Persistent dry cough for 3 weeks. Possible aspiration concern as per patient. Patient brought to the ER for evaluation. IV Zosyn given for UTI. 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 Allergies Allergy/AdvReac Type Severity Reaction Status Date / Time Iodinated Contrast Media Allergy Intermediate IV OR Verified 04/15/21 20:41 ORAL--SKIN FLUSHES Home Medications Medication Instructions Recorded Confirmed Type carbidopa 25 mg-levodopa 100 mg 1 tab PO TID 07/08/18 04/15/21 History tablet ergocalciferol (vitamin D2) 1,250 50,000 unit PO MO 07/08/18 04/15/21 History mcg (50,000 unit) capsule (Vitamin D2) potassium chloride 10 mEq 10 meq PO QAM 07/08/18 04/15/21 History tablet,extended release finasteride 5 mg tablet 5 mg PO QAM 06/26/19 04/15/21 History pantoprazole 40 mg tablet,delayed 40 mg PO DAILYBB 06/26/19 04/15/21 History release sertraline 100 mg tablet 100 mg PO QAM 06/26/19 04/15/21 History dorzolamide 22.3 mg-timolol 6.8 1 drp OPB BID 01/23/20 04/15/21 History mg/mL eye drops lisinopril 5 mg tablet 5 mg PO QAM 01/23/20 04/15/21 History acetaminophen 325 mg tablet 650 mg PO Q4H PRN MDD 3 GR/24 HRS 04/24/20 04/15/21 History (Tylenol) docusate sodium 100 mg capsule 100 mg PO BID 04/24/20 04/15/21 History loratadine 10 mg tablet 10 mg PO QAM 04/24/20 04/15/21 History tamsulosin 0.4 mg capsule (Flomax) 0.4 mg PO HS 04/24/20 04/15/21 History brimonidine 0.2 % eye drops 1 drp OPB Q12H 03/14/21 04/15/21 History duloxetine 20 mg capsule,delayed 20 mg PO BID 03/14/21 04/15/21 History release (Cymbalta) hydrocortisone 2.5 % topical cream 1 applic TOPICAL BID PRN 04/15/21 04/15/21 History miconazole nitrate 2 % topical 1 applic TOPICAL BID 04/15/21 04/15/21 History powder (Desenex) Past Med/Surg History Medical History (Updated 04/16/21 @ 10:07 by Cristian Kraus MD) Alzheimer disease Anxiety Dementia HTN (hypertension) Parkinson disease Substance abuse Surgical History History of total left hip arthroplasty Family History Other No pertinent family history in first degree relatives Social History Smoking Status: Former smoker Tobacco Type: E-cigarettes / Vaping Hx Alcohol Use: No Hx Substance Use: Yes Last Used Substance: Days (ago) Last Used Substance Other:: last used october 2017 Substance Use Type Other:: Daily for 50 years Preferred Language: Latvian Communication Ability: Effective Communication Ability Comment: hx parkinsons & dementia 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 Beliefs That Will Affect Care: None marital status: Current Living Situation: [facility] current occupational status: employed Other Information That Helps Us Care for You: No Feels Safe at Home: Yes Safety Concerns: Feels Safe At This Time Assistive Devices: Glasses Review of Systems Review of Systems: As per HPI, all 10 systems reviewed, all other ROS negative Physical Exam Physical Exam: GENERAL: Comfortable, occasional coughing, no respiratory distress SKIN: Pallor, warm HEENT: Pale palpebral conjunctivae, no ptosis, decreased blinking, dry buccal mucosa NECK : Supple, no tenderness CHEST : Decreased breath sounds, no tenderness HEART : RRR, no obvious murmurs ABDOMEN: Some distention, nontender EXTREMITIES : No LE swelling/tenderness, no other conspicuous deformities noted NEUROLOGIC : Coherent, no facial asymmetry, bradykinetic, MMTS BUE 4/5, BLE 2/5, gait and stance not assessed Results & Data Results & Data ([facility]) Vital Signs (Past 12 Hours) Vital Signs Temp Pulse Pulse Resp BP BP Pulse Ox 04/15/21 23:30 76 22 140/64 94 04/15/21 23:00 72 17 146/85 H 94 04/15/21 22:42 75 18 151/100 H 96 04/15/21 21:30 79 23 160/82 H 95 04/15/21 20:01 37.1 C 78 84 22 135/79 94 04/15/21 19:43 37.1 C 86 20 158/92 H 96 Laboratory Results Laboratory Results WBC 8.03 K/uL (4.8-10.8) 04/15/21 21:05 RBC 4.27 M/uL (4.7-6.1) L 04/15/21 21:05 Hgb 12.8 g/dL (14.0-18.0) L 04/15/21 21:05 Hct 38.1 % (42-52) L 04/15/21 21:05 MCV 89.2 fL (80-100) 04/15/21 21:05 MCH 30.0 pg (25-34) 04/15/21 21:05 MCHC 33.6 g/dL (32-36) 04/15/21 21:05 RDW Std Deviation 44.6 fL (36.4-46.3) 04/15/21 21:05 RDW Coeff of David 13.7 % (11.5-14.5) 04/15/21 21:05 Plt Count 185 K/uL (130-400) 04/15/21 21:05 MPV 9.5 fL (7.4-10.4) 04/15/21 21:05 Immature Gran % (Auto) 0.4 % 04/15/21 21:05 Neut % (Auto) 79.2 % 04/15/21 21:05 Lymph % (Auto) 11.0 % 04/15/21 21:05 [place] % (Auto) 9.1 % 04/15/21 21:05 Eos % (Auto) 0.2 % 04/15/21 21:05 Baso % (Auto) 0.1 % 04/15/21 21:05 Neut # (Auto) 6.36 K/uL (1.4-6.5) 04/15/21 21:05 Lymph # (Auto) 0.88 K/uL (1.2-3.4) L 04/15/21 21:05 [place] # (Auto) 0.73 K/uL (0.11-0.59) H 04/15/21 21:05 Eos # (Auto) 0.02 K/uL (0-0.5) 04/15/21 21:05 Baso # (Auto) 0.01 K/uL (0-0.2) 04/15/21 21:05 Immature Gran # (Auto) 0.03 K/uL (0.00-0.02) H 04/15/21 21:05 Sodium 136 mmol/L (136-145) 04/15/21 21:05 Potassium mmol/L (3.5-5.1) 04/15/21 21:05 Chloride 105 mmol/L (98-107) 04/15/21 21:05 Carbon Dioxide 27 mmol/L (21-32) 04/15/21 21:05 Anion Gap 4.0 (3-11) 04/15/21 21:05 BUN 16 mg/dl (7-18) 04/15/21 21:05 Creatinine 0.99 mg/dl (0.6-1.4) 04/15/21 21:05 Est Cr Clr Drug Dosing 76.1 ml/min 04/15/21 21:05 Est GFR ( Amer) 86.6 ml/min 04/15/21 21:05 Est GFR (Non-Af Amer) 74.7 ml/min 04/15/21 21:05 BUN/Creatinine Ratio 16.2 (10-20) 04/15/21 21:05 Glucose 100 mg/dl (70-99) H 04/15/21 21:05 Calcium 8.8 mg/dl (8.5-10.1) 04/15/21 21:05 Total Bilirubin 0.6 mg/dl (0.2-1) 04/15/21 21:05 AST U/L (15-37) 04/15/21 21:05 ALT 10 U/L (12-78) L 04/15/21 21:05 Alkaline Phosphatase 90 U/L (45-117) 04/15/21 21:05 Total Protein 7.3 gm/dl (6.4-8.2) 04/15/21 21:05 Albumin 3.2 gm/dl (3.4-5.0) L 04/15/21 21:05 Globulin 4.1 gm/dl (2.5-4.0) H 04/15/21 21:05 Albumin/Globulin Ratio 0.8 (0.9-2) L 04/15/21 21:05 Lipase 129 U/L (73-393) 04/15/21 21:05 Urine Color Yellow 04/15/21 21:10 Urine Appearance Turbid (Clear) A 04/15/21 21:10 Urine pH 6.0 (4.5-7.5) 04/15/21 21:10 Ur Specific [place] 1.015 (1.000-1.030) 04/15/21 21:10 Urine Protein 2+ (Negative) H 04/15/21 21:10 Urine Glucose (UA) Negative (Negative) 04/15/21 21:10 Urine Ketones Trace (Negative) H 04/15/21 21:10 Urine Blood 1+ (Negative) H 04/15/21 21:10 Urine Nitrite Positive (Negative) A 04/15/21 21:10 Urine Bilirubin Negative (Negative) 04/15/21 21:10 Urine Urobilinogen Negative (Negative) 04/15/21 21:10 Ur Leukocyte Esterase 3+ (Negative) H 04/15/21 21:10 Urine WBC (Auto) >30 /hpf (0-5) H 04/15/21 21:10 Urine RBC (Auto) 5-10 /hpf (0-4) H 04/15/21 21:10 U Hyaline Cast (Auto) 0 /lpf (0-5) 04/15/21 21:10 U Epithel Cells (Auto) >30 /lpf (0-5) H 04/15/21 21:10 Urine Bacteria (Auto) 4+ (Negative) H 04/15/21 21:10 Urine Yeast Not Reportable 04/15/21 21:10 COVID-19 Eval Order Covid19 [facility]Now [facility] 04/15/21 21:18 SARS-CoV-2, RNA, NAAT NEGATIVE (NEGATIVE) 04/15/21 21:18 Impressions Abdomen/Pelvis CT 04/15/21 19:49 CT SCAN OF THE ABDOMEN AND PELVIS WITHOUT IV CONTRAST CLINICAL HISTORY: Lower abdominal pain. COMPARISON STUDY: Renal ultrasound dated 09/05/2016. TECHNIQUE: CT scan of the abdomen and pelvis is performed from the lung bases to the proximal femora. Images are reviewed in the axial, sagittal, and coronal planes. IV contrast was not administered for this examination. A dose lowering technique was utilized adhering to the principles of ALARA. CT DOSE: 983.40 mGycm FINDINGS: Lung bases: The heart is mildly enlarged and without pericardial effusion. The coronary arteries are densely calcified. There is a small hiatal hernia. The lung bases are clear noting dependent atelectasis. Liver: The unenhanced liver is normal in size, contour, and attenuation. There is no intrahepatic biliary ductal dilatation. There are scattered calcified hepatic granulomas. Gallbladder: Unremarkable. Spleen: Normal in size and attenuation. There are calcified splenic granulomas. Pancreas: The unenhanced pancreas is moderately atrophic and grossly unremarkable. Adrenal glands: Unremarkable. Kidneys: The unenhanced kidneys demonstrate cortical atrophy and are without hydronephrosis. There are no renal calculi identified. There is no evidence of contour deforming renal mass lesion. Abdominal vasculature: The abdominal aorta is normal in course and caliber noting advanced atherosclerotic calcification. Bowel: There is no bowel obstruction. The appendix is well-visualized and normal. Peritoneum: There is no intraperitoneal free air or abdominal ascites. Lymphadenopathy: None. Pelvic viscera: Evaluation of the pelvis is degraded by streak artifact from a left hip arthroplasty. The prostate gland is mildly enlarged and heterogeneous noting median lobe hypertrophy. The bladder wall appears thickened and trabeculated indicating chronic outlet obstruction. Skeletal structures: The skeletal structures are osteopenic. There is lumbosacral spondylosis with evidence of L4-L5 spinal fusion. No lytic or bl astic lesions are seen. A left hip arthroplasty is in place. There is chronic posttraumatic deformity of the right proximal femur with intertrochanteric and intramedullary nails in place. There are healed right pubic ring fractures. There are numerous healed left-sided rib fractures. IMPRESSION: 1. There are no acute infectious or inflammatory findings in the abdomen or pelvis. 2. Chronic changes as above. ACT 112: Negative or not required by law. Electronically signed by: Sushant Woodruff M.D. 04/15/2021 9:35 PM Chest X-Ray 04/15/21 19:50 SINGLE VIEW CHEST CLINICAL HISTORY: Cough. FINDINGS: 2 AP, portable, upright chest radiographs are compared to study dated 04/24/2020 and correlated with chest CT dated 07/04/2019. The examination is degr aded by portable technique and patient rotation. The heart is mildly enlarged noting atherosclerotic calcification of the thoracic aorta. The pulmonary vasculature is noncongested. There are calcified mediastinal lymph nodes. Chronic interstitial thickening is similar to previous. Atelectasis is noted at the left lung base. No airspace consolidation or large pleural effusion is identified. No pneumothorax is seen. The skeletal structures are osteopenic. The bony thorax is grossly intact. IMPRESSION: Mild cardiomegaly with no acute cardiopulmonary abnormality. ACT 112: Negative or not required by law. Electronically signed by: Sushant Woodruff M.D. 04/15/2021 8:15 PM Code Status & VTE Plan VTE Prophylaxis Plan VTE Prophylaxis will be ordered: Yes
[2021-04-16 00:19] LABS: Hematocrit (blood only) 38.8 % (42-52)
[2021-04-16 00:32] LABS: Potassium 3.7 mmol/L (3.5-5.1)
[2021-04-16] MEDS ORDERED: traMADol HCL 50 MG TABLET PO PRN (04:08)
[2021-04-16] MEDS ORDERED: LEVALBUTEROL 1.25MG/0.5ML NEB INH PRN (04:08)
[2021-04-16] MEDS ORDERED: PROMETHAZINE HCL 12.5 MG in SODIUM CHLORIDE 0.9% 50 ML IV PRN (04:08)
[2021-04-16] MEDS ORDERED: XOPENEX/ATROVENT 1.25mg/0.5MG NEB COMBO NEB PRN (04:08)
[2021-04-16] MEDS ORDERED: IPRATROPIUM BROMIDE NEB SOLN 0.02% 2.5 ML VIAL INH PRN (04:08)
[2021-04-16] MEDS ORDERED: KETOROLAC TROMETHAMINE 15 MG/ML VIAL IV PRN (04:08)
[2021-04-16] MEDS ORDERED: ACETAMINOPHEN 325 MG TAB PO PRN (04:08)
[2021-04-16 04:21] LABS: Magnesium 2.1 mg/dl (1.8-2.4)
[2021-04-16] MEDS ORDERED: NSS + 20MEQ KCL 20 MEQ/1,000 ML BAG IV ONE (04:30)
[2021-04-16] MEDS ORDERED: PIPERACILLIN/TAZOBACTAM 3.375 GM in DEXTROSE 5% 100 ML IV SCH (05:00)
[2021-04-16] MEDS: DORZOLAMIDE/TIMOLOL 22.3/6.8MG/ML 10 ML BTL OPB SCH ×3 (05:06→20:44)
[2021-04-16] MEDS: PANTOprazole 40 MG TAB PO SCH (05:06)
[2021-04-16] MEDS: CARBIDOPA/LEVODOPA 25/100MG TAB PO SCH ×4 (05:06→20:50)
[2021-04-16] MEDS: guaiFENesin 600 MG TABCR PO SCH ×3 (05:06→20:44)
[2021-04-16 06:55] LABS: Basophils # (auto) 0.02 K/uL (0-0.2); Basophils % (auto) 0.3 %; Eosinophils # (auto) 0.04 K/uL (0-0.5); Eosinophils % (auto) 0.6 %; Hematocrit (blood only) 37.3 % (42-52); Hemoglobin 12.2 g/dL (14.0-18.0); Immature Granulocytes # (auto) 0.02 K/uL (0.00-0.02); Immature Granulocytes % (auto) 0.3 %; Lymphocytes # (auto) 0.88 K/uL (1.2-3.4); Lymphocytes % (auto) 14.2 %; Mean Corpuscular Hemoglobin 29.1 pg (25-34); Mean Corpuscular Hgb Conc 32.7 g/dL (32-36); Mean Platelet Volume 9.5 fL (7.4-10.4); Monocytes # (auto) 0.51 K/uL (0.11-0.59); Monocytes % (auto) 8.2 %; Neutrophils # (auto) 4.74 K/uL (1.4-6.5); Neutrophils % (auto) 76.4 %; Platelet Count 162 K/uL (130-400); RDW Coefficient of Variation 13.7 % (11.5-14.5); RDW Standard Deviation 44.7 fL (36.4-46.3); Red Blood Count 4.19 M/uL (4.7-6.1); White Blood Count 6.21 K/uL (4.8-10.8)
[2021-04-16 07:20] LABS: BUN Creatinine Ratio 15.5 (10-20); Calcium 8.6 mg/dl (8.5-10.1); Creatinine Clr Calc Pharmacy 91.9 ml/min; Est GFR (Non-African American) 87.1 ml/min; Potassium 3.5 mmol/L (3.5-5.1)
[2021-04-16] MEDS: LORATADINE 10 MG TAB PO SCH (08:48)
[2021-04-16] MEDS: FINASTERIDE 5 MG TAB PO SCH (08:48)
[2021-04-16] MEDS: SERTRALINE HCL 100 MG TABLET PO SCH (08:48)
[2021-04-16] MEDS: DULoxetine HCL 20 MG CAP PO SCH ×2 (08:48→20:50)
[2021-04-16] MEDS: ENOXAPARIN INJ 40 MG/0.4 ML SYR SQ SCH (08:49)
[2021-04-16] MEDS: BRIMONIDINE TARTRATE 0.2% 5ML OPB SCH ×2 (08:50→20:44)
[2021-04-16] MEDS: lisinopril 5 MG TAB PO SCH (08:55)
--- NOTE | 2021-04-16 09:40 | Electrocardiogram Report ---
Test Reason : Blood Pressure : / mmHG Vent. Rate : 081 BPM Atrial Rate : 081 BPM P-R Int : 168 ms QRS Dur : 100 ms QT Int : 388 ms P-R-T Axes : 065 007 022 degrees QTc Int : 450 ms Normal sinus rhythm Old Inferior infarct Abnormal ECG When compared with ECG of 24-APR-2020 21:34, No significant change was found Confirmed by Derrick Boateng ([id number]) on 04/16/2021 9:40:15 AM Referred By: [facility] Confirmed By:Derrick Boateng
[2021-04-16] MEDS ORDERED: MEROPENEM CONSULT ACITVE PRN (11:11)
[2021-04-16] MEDS: MEROPENEM 500 MG in SYRINGE 0 ML IV SCH ×2 (12:47→18:53)
--- NOTE | 2021-04-16 18:48 | Hospitalist Progress Note ---
Date of Service April 16, 2021 Assessment & Plan (1) Complicated UTI (urinary tract infection): Plan: 75-year-old gentleman from prison with PMH of recent ESBL UTI, Parkinson's disease, Alzheimer's disease, anemia, HTN, right pelvis fracture and right rib fracture brought to the ED 04/15 for poor urine output and hematuria from [facility]. He is being managed for the following: #. Complicated UTI Poor urinary output, UA suggestive of UTI, patient has symptom of lower belly pain and frequency. No fever, no chills. Recent history of ESBL UTI February 2021 treated with 10-day Ertapenem course Admitting CTAP: There are no acute infectious or inflammatory findings in the abdomen or pelvis. We will put him on meropenem for ESBL and possible Pseudomonas coverage ID consulted, appreciate recommendation. Follow-up with urinary culture and continue to monitor patient clinically. #. Chronic anemia Patient hemoglobin 12-13, MCV at presentation 89 We will get iron profile and vitamins level Follow-up with the results and do appropriate adjustment for anemia therapy #. Persistent cough Dry cough for 3 weeks possible aspiration per patient CXR: Mild cardiomegaly with no acute cardiopulmonary abnormality. Will continue to monitor #. Parkinson's Dx stable as per recent outpatient [facility] evaluation 2 weeks ago Resume home meds for other chronic conditions. DVT prophylaxis w/ Lovenox subcu Full code Admission and Anticipated Discharge Date Admission Date: April 16, 2021 Subjective Patient was sitting up/lying down in bed, NAD, on RA. Patient denies Headache, Dizziness, Fever, Chills, Sore throat, Cough, Chest pain, palpitations, SOB. States he has lower belly pain. Physical Exam Physical Exam: GENERAL: Alert and oriented x3. NAD, on RA. HEENT: No pallor, no icterus. Pupils equal, round and reactive to light. Oral mucosa moist. NECK: No JVD, no neck masses. HEART: S1 and S2 heard. Regular rate and rhythm. No murmur, no gallop. RESPIRATORY SYSTEM: Normal AP diameter. No accessory muscle use. No wheezing, no crackles. ABDOMEN: Soft, bowel sounds present, lower belly tenderness, no distention. CENTRAL NERVOUS SYSTEM: Alert and oriented x3. No facial droop. Speech is not clear. Obeys simple commands. Moves extremities. EXTREMITIES: Has resting tremors. No edema, no erythema seen. Results & Data Results & Data ([facility]) Vital Signs (Past 12 Hours) Vital Signs Temp Pulse Resp BP Pulse Ox 04/16/21 07:48 36.5 C 69 16 130/79 94
[2021-04-16] MEDS: TAMSULOSIN HCL 0.4 MG CAP PO SCH (20:50)
[2021-04-17] MEDS: MEROPENEM 500 MG in SYRINGE 0 ML IV SCH ×4 (00:08→18:02)
[2021-04-17] MEDS: PANTOprazole 40 MG TAB PO SCH (05:38)
[2021-04-17 07:05] LABS: Hemoglobin 12.3 g/dL (14.0-18.0); Mean Corpuscular Hgb Conc 32.4 g/dL (32-36); Mean Corpuscular Volume 89.6 fL (80-100); Mean Platelet Volume 9.5 fL (7.4-10.4); Platelet Count 203 K/uL (130-400); RDW Standard Deviation 46.2 fL (36.4-46.3); Red Blood Count 4.24 M/uL (4.7-6.1); White Blood Count 5.51 K/uL (4.8-10.8)
[2021-04-17 07:47] LABS: Ferritin 407.3 ng/ml (8-388)
[2021-04-17 08:05] LABS: Folate (Folic Acid) > 20.00 ng/ml (>5.38); Vitamin B12 435 pg/ml (193-986)
[2021-04-17] MEDS: BRIMONIDINE TARTRATE 0.2% 5ML OPB SCH ×2 (08:24→20:56)
[2021-04-17] MEDS: CARBIDOPA/LEVODOPA 25/100MG TAB PO SCH ×3 (08:28→20:55)
[2021-04-17] MEDS: SERTRALINE HCL 100 MG TABLET PO SCH (08:28)
[2021-04-17] MEDS: lisinopril 5 MG TAB PO SCH (08:28)
[2021-04-17] MEDS: ENOXAPARIN INJ 40 MG/0.4 ML SYR SQ SCH (08:28)
[2021-04-17] MEDS: guaiFENesin 600 MG TABCR PO SCH ×2 (08:28→20:55)
[2021-04-17] MEDS: LORATADINE 10 MG TAB PO SCH (08:29)
[2021-04-17] MEDS: FINASTERIDE 5 MG TAB PO SCH (08:29)
[2021-04-17] MEDS: DULoxetine HCL 20 MG CAP PO SCH ×2 (08:29→20:55)
[2021-04-17] MEDS: DORZOLAMIDE/TIMOLOL 22.3/6.8MG/ML 10 ML BTL OPB SCH ×2 (08:32→20:55)
--- NOTE | 2021-04-17 18:09 | Hospitalist Progress Note ---
Date of Service April 17, 2021 Assessment & Plan (1) Complicated UTI (urinary tract infection): Plan: 75-year-old gentleman from alf with PMH of recent ESBL UTI, Parkinson's disease, Alzheimer's disease, anemia, HTN, right pelvis fracture and right rib fracture brought to the ED 04/15 for poor urine output and hematuria from [facility]. He is being managed for the following: #. Complicated UTI Poor urinary output, UA suggestive of UTI, patient has symptom of lower belly pain and frequency. No fever, no chills. Recent history of ESBL UTI February 2021 treated with 10-day Ertapenem course Admitting CTAP: There are no acute infectious or inflammatory findings in the abdomen or pelvis. UCx Positive for ESBL E. coli. c/w meropenem ID consulted, appreciate recommendation. Continue to monitor patient clinically. Pt has improved greatly today. #. Chronic anemia Patient hemoglobin 12-13, MCV at presentation 89 Iron prof w/ low transferrin sat and low normal iron and normal foalte and B12 level. Ferritin level elevated Hb is holding up; continue to monitor anemia workup as outpatient to determine the need for iron therapy #. Persistent cough Dry cough for 3 weeks possible aspiration per patient CXR: Mild cardiomegaly with no acute cardiopulmonary abnormality. Will continue to monitor IMPROVED #. Parkinson's Dx stable as per recent outpatient [facility] evaluation 2 weeks ago Resume home meds for other chronic conditions. DVT prophylaxis w/ Lovenox subcu Full code Admission and Anticipated Discharge Date Admission Date: April 15, 2021 Subjective Patient was sitting up, NAD, on RA. Patient denies Headache, Dizziness, Fever, Chills, Sore throat, Cough, Chest pain, palpitations, SOB. States his lower belly pain has resolved. Physical Exam Physical Exam: GENERAL: Alert and oriented x3. NAD, on RA. HEENT: No pallor, no icterus. Pupils equal, round and reactive to light. Oral mucosa moist. NECK: No JVD, no neck masses. HEART: S1 and S2 heard. Regular rate and rhythm. No murmur, no gallop. RESPIRATORY SYSTEM: Normal AP diameter. No accessory muscle use. No wheezing, no crackles. ABDOMEN: Soft, bowel sounds present, lower belly tenderness improved, no distention. CENTRAL NERVOUS SYSTEM: Alert and oriented x3. No facial droop. Speech is not clear. Obeys simple commands. Moves extremities. EXTREMITIES: Has resting tremors. No edema, no erythema seen. Results & Data Results & Data ([facility]) Vital Signs (Past 12 Hours) Vital Signs Temp Pulse Resp BP Pulse Ox 04/17/21 16:45 36.6 C 69 16 132/79 94 04/17/21 07:38 36.9 C 74 18 127/80 95
[2021-04-17] MEDS: TAMSULOSIN HCL 0.4 MG CAP PO SCH (20:55)
[2021-04-18] MEDS: MEROPENEM 500 MG in SYRINGE 0 ML IV SCH ×4 (00:32→17:12)
[2021-04-18] MEDS: PANTOprazole 40 MG TAB PO SCH (05:46)
[2021-04-18] MEDS: CARBIDOPA/LEVODOPA 25/100MG TAB PO SCH ×3 (08:22→21:01)
[2021-04-18] MEDS: DULoxetine HCL 20 MG CAP PO SCH ×2 (08:22→21:02)
[2021-04-18] MEDS: BRIMONIDINE TARTRATE 0.2% 5ML OPB SCH ×2 (08:22→20:35)
[2021-04-18] MEDS: guaiFENesin 600 MG TABCR PO SCH ×2 (08:23→21:02)
[2021-04-18] MEDS: ENOXAPARIN INJ 40 MG/0.4 ML SYR SQ SCH (08:23)
[2021-04-18] MEDS: SERTRALINE HCL 100 MG TABLET PO SCH (08:26)
[2021-04-18] MEDS: FINASTERIDE 5 MG TAB PO SCH (08:26)
[2021-04-18] MEDS: LORATADINE 10 MG TAB PO SCH (08:27)
[2021-04-18] MEDS: lisinopril 5 MG TAB PO SCH (08:27)
[2021-04-18] MEDS: DORZOLAMIDE/TIMOLOL 22.3/6.8MG/ML 10 ML BTL OPB SCH ×2 (08:27→20:35)
[2021-04-18] MEDS ORDERED: diphenhydrAMINE 50 MG/ML VIAL IV STA (12:00)
--- NOTE | 2021-04-18 20:06 | Hospitalist Progress Note ---
Date of Service April 18, 2021 Assessment & Plan (1) Complicated UTI (urinary tract infection): Plan: 75-year-old gentleman from senior living with PMH of recent ESBL UTI, Parkinson's disease, Alzheimer's disease, anemia, HTN, right pelvis fracture and right rib fracture brought to the ED 04/15 for poor urine output and hematuria from [facility]. He is being managed for the following: #. Complicated UTI Poor urinary output, UA suggestive of UTI, patient has symptom of lower belly pain and frequency. No fever, no chills. Recent history of ESBL UTI February 2021 treated with 10-day Ertapenem course Admitting CTAP: There are no acute infectious or inflammatory findings in the abdomen or pelvis. UCx Positive for ESBL E. coli. c/w meropenem ID consulted, awaiting recommendation. Continue to monitor patient clinically. Patient's belly pain has improved #. Chronic anemia Patient hemoglobin 12-13, MCV at presentation 89 Iron prof w/ low transferrin sat and low normal iron and normal foalte and B12 level. Ferritin level elevated Hb is holding up; continue to monitor anemia workup as outpatient to determine the need for iron therapy #. Persistent cough Dry cough for 3 weeks possible aspiration per patient CXR: Mild cardiomegaly with no acute cardiopulmonary abnormality. IMPROVED #. Parkinson's Dx stable as per recent outpatient [facility] evaluation 2 weeks ago Had dystonic reaction today, status post single dose of diphenhydramine Continue to monitor for today. Resume home meds for other chronic conditions. Disposition: We will go to rehab upon discharge with ID recommendations. DVT prophylaxis w/ Lovenox subcu Full code Admission and Anticipated Discharge Date Admission Date: April 15, 2021 Subjective Patient was lying in the bed, was rigid with neck turned towards left since last hour, in mild distress, on RA. Patient denies Headache, Dizziness, Fever, Chills, Sore throat, Cough, Chest pain, palpitations, SOB. States his lower be lly pain has resolved. Physical Exam Physical Exam: GENERAL: Alert and oriented x3. NAD, on RA. HEENT: No pallor, no icterus. Pupils equal, round and reactive to light. Oral mucosa moist. Neck received and turned towards left. NECK: No JVD, no neck masses. HEART: S1 and S2 heard. Regular rate and rhythm. No murmur, no gallop. RESPIRATORY SYSTEM: Normal AP diameter. No accessory muscle use. No wheezing, no crackles. ABDOMEN: Soft, bowel sounds present, lower belly tenderness improved, no d istention. CENTRAL NERVOUS SYSTEM: Alert and oriented x3. No facial droop. Speech is not clear. Obeys simple commands. Moves extremities. EXTREMITIES: Has resting tremors. No edema, no erythema seen. Results & Data Results & Data ([facility]) Vital Signs (Past 12 Hours) Vital Signs Temp Pulse Resp BP Pulse Ox 04/18/21 16:54 37.4 C 76 20 126/82 93
[2021-04-18] MEDS: TAMSULOSIN HCL 0.4 MG CAP PO SCH (21:03)
[2021-04-19] MEDS: MEROPENEM 500 MG in SYRINGE 0 ML IV SCH ×2 (00:28→06:15)
[2021-04-19] MEDS: PANTOprazole 40 MG TAB PO SCH (05:42)
[2021-04-19] MEDS: SERTRALINE HCL 100 MG TABLET PO SCH (08:37)
[2021-04-19] MEDS: lisinopril 5 MG TAB PO SCH (08:37)
[2021-04-19] MEDS: FINASTERIDE 5 MG TAB PO SCH (08:37)
[2021-04-19] MEDS: LORATADINE 10 MG TAB PO SCH (08:37)
[2021-04-19] MEDS: CARBIDOPA/LEVODOPA 25/100MG TAB PO SCH ×3 (08:38→20:38)
[2021-04-19] MEDS: guaiFENesin 600 MG TABCR PO SCH ×2 (08:38→20:38)
[2021-04-19] MEDS: DULoxetine HCL 20 MG CAP PO SCH ×2 (08:38→20:38)
[2021-04-19] MEDS: ENOXAPARIN INJ 40 MG/0.4 ML SYR SQ SCH (08:38)
[2021-04-19] MEDS: DORZOLAMIDE/TIMOLOL 22.3/6.8MG/ML 10 ML BTL OPB SCH ×2 (08:39→20:33)
[2021-04-19] MEDS: BRIMONIDINE TARTRATE 0.2% 5ML OPB SCH ×2 (08:41→20:33)
[2021-04-19 09:05] LABS: Hematocrit (blood only) 37.2 % (42-52); Hemoglobin 12.2 g/dL (14.0-18.0); Mean Corpuscular Hemoglobin 29.2 pg (25-34); Mean Corpuscular Hgb Conc 32.8 g/dL (32-36); Mean Platelet Volume 8.9 fL (7.4-10.4); Platelet Count 231 K/uL (130-400); RDW Coefficient of Variation 13.8 % (11.5-14.5); RDW Standard Deviation 45.2 fL (36.4-46.3); Red Blood Count 4.18 M/uL (4.7-6.1); White Blood Count 4.89 K/uL (4.8-10.8)
[2021-04-19 10:02] LABS: BUN Creatinine Ratio 17.5 (10-20); Calcium 8.7 mg/dl (8.5-10.1); Creatinine Clr Calc Pharmacy 96.6 ml/min; Est GFR (African American) 103.1 ml/min; Est GFR (Non-African American) 88.9 ml/min; Potassium 3.6 mmol/L (3.5-5.1)
[2021-04-19] MEDS: ERTAPENEM SODIUM 1,000 MG in SODIUM CHLORIDE 0.9% 50 ML IV SCH (13:18)
--- NOTE | 2021-04-19 18:31 | Hospitalist Progress Note ---
Date of Service April 19, 2021 Assessment & Plan (1) Complicated UTI (urinary tract infection): Plan: recurrent ESBL E coli-ID recommends 4-6 weeks of Invanz to treat UTI and in case of prostatitis. PICC placement tonight in preparation for discharge tomorrow with continued medications. Weekly BMP/CBC while on this. (2) UTI due to extended-spectrum beta lactamase (ESBL) producing Escherichia coli: Plan: Invanz as above. (3) Chronic anemia: Plan: chronic, stable, no indication for transfusion. (4) HTN (hypertension): Plan: elevated, however, blood pressure wasn't updated all day. Change vitals checks to q4h. Cont to monitor. (5) Parkinson disease: Plan: chronic, cont Sinemet per outpatient regimen. (6) DVT prophylaxis: Plan: Lovenox Full Dispo-return to [facility] in am. Sheila Rosas DO [facility] Hospitalist Admission and Anticipated Discharge Date Admission Date: April 15, 2021 Subjective 75 yo M with chronic bladder outlet obstruction presents with ESCL E coli UTI -patient reports some generalized abdominal pain that is chronic -feels improved since admission -Merrem switched to Invanz per ID recs -PICC placed in preparation for 4-6 weeks abx -denies SOB, chest pain or other issues. -tolerating PO Review of Systems Review of Systems: All systems were reviewed and negative except as indicated in HPI above. Physical Exam Physical Exam: CONSTITUTIONAL: WNWD, vitals as above, generally well- appearing EYES: normal conjunctivae, no scleral icterus ENT: external ear and nose normal, MMM RESPIRATORY: clear to auscultation bilaterally, no crackles, rales or wheezes, normal respiratory effort CARDIOVASCULAR: regular rate and rhythm, S1 and 2 heard without murmurs, gallops or rubs, no JVD, no peripheral edema GASTROINTESTINAL: soft, nontender,nondistended, no guarding. : external catheter in place. MUSCULOSKELETAL: generalized weakness, head is normocephalic and atraumatic SKIN: warm and dry NEUROLOGIC: No facial palsy, no dysarthria. CN 2-12 grossly intact, no sensory deficit, normal cognition, normal speech, PSYCHIATRIC: alert cooperative and oriented to person, place and time. Results & Data Results & Data ([facility]) Vital Signs (Past 12 Hours) Vital Signs Temp Pulse Resp BP Pulse Ox 08/04/21 07:25 36.3 C L 65 16 163/97 H 97 Laboratory Results Short CBC 04/19/21 Range/Units 08:53 WBC 4.89 (4.8-10.8) K/uL Hgb 12.2 L (14.0-18.0) g/dL Hct 37.2 L (42-52) % Plt Count 231 (130-400) K/uL BMP 04/19/21 08:53 Sodium 139 Potassium 3.6 Chloride 107 Carbon Dioxide 26 BUN 14 Creatinine 0.78 Glucose 90 Calcium 8.7 Medications Administered Current Inpatient Medications Acetaminophen (Acetaminophen 325 Mg Tab) 650 mg PO Q4H PRN PRN Reason: Pain Stop: 05/16/21 04:07 Brimonidine Tartrate (Brimonidine Tartrate 0.2% 5ml) 1 drops OPB BID LISA Stop: 05/16/21 08:59 Last Admin: 04/19/21 08:41 Dose: 1 drops Documented by: Carbidopa/Levodopa (Carbidopa/Levodopa 25/100mg Tab) 1 tab PO TID LISA Stop: 05/16/21 04:07 Last Admin: 04/19/21 13:19 Dose: 1 tab Documented by: Dorzolamide/Timolol (Dorzolamide/Timolol 22.3/6.8mg/Ml 10 Ml Btl) 1 drops OPB BID LISA Stop: 05/16/21 04:07 Last Admin: 04/19/21 08:39 Dose: 1 drops Documented by: Duloxetine HCl (Duloxetine Hcl 20 Mg Cap) 20 mg PO BID LISA Stop: 05/16/21 08:59 Last Admin: 04/19/21 08:38 Dose: 20 mg Documented by: Enoxaparin Sodium (Enoxaparin Inj 40 Mg/0.4 Ml Syr) 40 mg SQ QAM LISA Stop: 05/16/21 08:59 Last Admin: 04/19/21 08:38 Dose: 40 mg Documented by: Finasteride (Finasteride 5 Mg Tab) 5 mg PO QAM LISA Stop: 05/16/21 08:59 Last Admin: 04/19/21 08:37 Dose: 5 mg Documented by: Guaifenesin (Guaifenesin 600 Mg Tabcr) 600 mg PO Q12 LISA Stop: 05/16/21 04:07 Last Admin: 04/19/21 08:38 Dose: 600 mg Documented by: Promethazine HCl 12.5 mg/ (Sodium Chloride) 50.5 mls @ 202 mls/hr IV Q6H PRN PRN Reason: Nausea And Vomiting Stop: 05/16/21 04:07 Ertapenem 1,000 mg/ Sodium (Chloride) 60 mls @ 100 mls/hr IV Q24H [facility] Stop: 04/26/21 11:59 Last Infusion: 04/19/21 13:54 Dose: Infused Documented by: Ipratropium [place] (Ipratropium [place] Neb Soln 0.02% 2.5 Ml Vial) 0.5 mg INH Q4H PRN PRN Reason: SOB/WHEEZING Stop: 05/16/21 04:07 Ketorolac Tromethamine (Ketorolac Tromethamine 15 Mg/Ml Vial) 15 mg IV Q6H PRN PRN Reason: Pain Stop: 04/21/21 04:07 Levalbuterol HCl (Levalbuterol 1.25mg/0.5ml Neb) 1.25 mg INH Q4H PRN PRN Reason: SOB/WHEEZING Stop: 05/16/21 04:07 Lisinopril (L[facility]op[facility] 5 Mg Tab) [facility] [place] Stop: 05/16/21 08:59 Last Admin: 04/19/21 08:37 Dose: 5 mg Documented by: Loratadine (Loratadine 10 Mg Tab) [facility] [place] Stop: 05/16/21 08:59 Last Admin: 04/19/21 08:37 Dose: 10 mg Documented by: Pantoprazole Sodium (Pantoprazole 40 Mg Tab) [facility] Stop: 05/16/21 06:29 Last Admin: 04/19/21 05:42 Dose: 40 mg Documented by: Sertraline HCl (Sertraline Hcl 100 Mg Tablet) [facility] [place] Stop: 05/16/21 08:59 Last Admin: 04/19/21 08:37 Dose: 100 mg Documented by: Tamsulosin HCl (Tamsulosin Hcl 0.4 Mg Cap) 0.4 mg PO [facility] Stop: 05/16/21 20:59 Last Admin: 04/18/21 21:03 Dose: 0.4 mg Documented by: Tramadol HCl (Tramadol Hcl 50 Mg Tablet) 25 mg PO Q4H PRN PRN Reason: Pain Stop: 05/16/21 04:07
[2021-04-19] MEDS: TAMSULOSIN HCL 0.4 MG CAP PO SCH (20:38)
[2021-04-20] MEDS: PANTOprazole 40 MG TAB PO SCH (05:55)
[2021-04-20] MEDS: ENOXAPARIN INJ 40 MG/0.4 ML SYR SQ SCH (08:42)
[2021-04-20] MEDS: guaiFENesin 600 MG TABCR PO SCH (08:43)
[2021-04-20] MEDS: FINASTERIDE 5 MG TAB PO SCH (08:43)
[2021-04-20] MEDS: LORATADINE 10 MG TAB PO SCH (08:43)
[2021-04-20] MEDS: DULoxetine HCL 20 MG CAP PO SCH (08:43)
[2021-04-20] MEDS: CARBIDOPA/LEVODOPA 25/100MG TAB PO SCH ×2 (08:43→14:05)
[2021-04-20] MEDS: SERTRALINE HCL 100 MG TABLET PO SCH (08:45)
[2021-04-20] MEDS: lisinopril 5 MG TAB PO SCH (08:45)
[2021-04-20] MEDS: DORZOLAMIDE/TIMOLOL 22.3/6.8MG/ML 10 ML BTL OPB SCH (08:51)
[2021-04-20] MEDS: BRIMONIDINE TARTRATE 0.2% 5ML OPB SCH (08:52)
[2021-04-20] MEDS: ERTAPENEM SODIUM 1,000 MG in SODIUM CHLORIDE 0.9% 50 ML IV SCH (12:08)
--- NOTE | 2021-04-20 16:31 | Discharge Summary ---
Date of Service April 20, 2021 Admission HPI Per Admitting Provider History obtained from patient and records. Patient is a reliable historian. Medical history significant for Parkinson's disease, hypertension, chronic anemia (baseline hemoglobin 12-13). Last confinement February 2024 right hip fracture status post surgery. Patient seen at the ER last February 2021 for ESBL E. coli UTI. Patient discharged back to long-term facility to complete IV Ertapenem for 10-day course. Yesterday patient complained to staff of urinary frequency and incontinence. No fever, no chills. Persistent dry cough for 3 weeks. Possible aspiration concern as per patient. Patient brought to the ER for evaluation. IV Zosyn given for UTI. 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 Admission Exam Per Admitting Provider GENERAL: Comfortable, occasional coughing, no respiratory distress SKIN: Pallor, warm HEENT: Pale palpebral conjunctivae, no ptosis, decreased blinking, dry buccal mucosa NECK : Supple, no tenderness CHEST : Decreased breath sounds, no tenderness HEART : RRR, no obvious murmurs ABDOMEN: Some distention, nontender EXTREMITIES : No LE swelling/tenderness, no other conspicuous deformities noted NEUROLOGIC : Coherent, no facial asymmetry, bradykinetic, MMTS BUE 4/5, BLE 2/5, gait and stance not assessed Principal Diagnosis Recurrent ESBL E coli UTI Ambulatory dysfunction 2/2 parkinson's disease Discharge Exam CONSTITUTIONAL: WNWD, vitals as above, generally well-appearing EYES: normal conjunctivae, no scleral icterus ENT: external ear and nose normal, MMM RESPIRATORY: clear to auscultation bilaterally, no crackles, rales or wheezes, normal respiratory effort CARDIOVASCULAR: regular rate and rhythm, S1 and 2 heard without murmurs, gallops or rubs, no JVD, no peripheral edema GASTROINTESTINAL: soft, nontender,nondistended, no guarding. MUSCULOSKELETAL: generalized weakness, head is normocephalic and atraumatic SKIN: warm and dry, LUE PICC in place. Site looks good. NEUROLOGIC: No facial palsy, no dysarthria. CN 2-12 grossly intact, no sensory deficit, normal cognition, normal speech, PSYCHIATRIC: alert cooperative and oriented to person, place and time. Discharge Data Allergies Allergy/AdvReac Type Severity Reaction Status Date / Time Iodinated Contrast Media Allergy Intermediate IV OR Verified 04/15/21 20:41 ORAL--SKIN FLUSHES Consultations 04/15/21 22:35 ED Decision to Admit Stat 04/16/21 11:04 Consult Infectious Diseases Routine Ordered Studies Laboratory Results WBC 4.89 K/uL (4.8-10.8) 04/19/21 08:53 RBC 4.18 M/uL (4.7-6.1) L 04/19/21 08:53 Hgb 12.2 g/dL (14.0-18.0) L 04/19/21 08:53 Hct 37.2 % (42-52) L 04/19/21 08:53 MCV 89.0 fL (80-100) 04/19/21 08:53 MCH 29.2 pg (25-34) 04/19/21 08:53 MCHC 32.8 g/dL (32-36) 04/19/21 08:53 RDW Std Deviation 45.2 fL (36.4-46.3) 04/19/21 08:53 RDW Coeff of David 13.8 % (11.5-14.5) 04/19/21 08:53 Plt Count 231 K/uL (130-400) 04/19/21 08:53 MPV 8.9 fL (7.4-10.4) 04/19/21 08:53 Immature Gran % (Auto) 0.3 % 04/16/21 06:20 Neut % (Auto) 76.4 % 04/16/21 06:20 Lymph % (Auto) 14.2 % 04/16/21 06:20 [place] % (Auto) 8.2 % 04/16/21 06:20 Eos % (Auto) 0.6 % 04/16/21 06:20 Baso % (Auto) 0.3 % 04/16/21 06:20 Neut # (Auto) 4.74 K/uL (1.4-6.5) 04/16/21 06:20 Lymph # (Auto) 0.88 K/uL (1.2-3.4) L 04/16/21 06:20 [place] # (Auto) 0.51 K/uL (0.11-0.59) 04/16/21 06:20 Eos # (Auto) 0.04 K/uL (0-0.5) 04/16/21 06:20 Baso # (Auto) 0.02 K/uL (0-0.2) 04/16/21 06:20 Immature Gran # (Auto) 0.02 K/uL (0.00-0.02) 04/16/21 06:20 Sodium 139 mmol/L (136-145) 04/19/21 08:53 Potassium 3.6 mmol/L (3.5-5.1) 04/19/21 08:53 Chloride 107 mmol/L (98-107) 04/19/21 08:53 Carbon Dioxide 26 mmol/L (21-32) 04/19/21 08:53 Anion Gap 6.0 (3-11) 04/19/21 08:53 BUN 14 mg/dl (7-18) 04/19/21 08:53 Creatinine 0.78 mg/dl (0.6-1.4) 04/19/21 08:53 Est Cr Clr Drug Dosing 96.6 ml/min 04/19/21 08:53 Est GFR ( Amer) 103.1 ml/min 04/19/21 08:53 Est GFR (Non-Af Amer) 88.9 ml/min 04/19/21 08:53 BUN/Creatinine Ratio 17.5 (10-20) 04/19/21 08:53 Glucose 90 mg/dl (70-99) 04/19/21 08:53 Calcium 8.7 mg/dl (8.5-10.1) 04/19/21 08:53 Magnesium 2.1 mg/dl (1.8-2.4) 04/16/21 00:10 Iron 40 mcg/dl (35-175) 04/17/21 06:51 TIBC 217 mcg/dl (250-450) L 04/17/21 06:51 Transferrin 171 mg/dl (200-360) L 04/17/21 06:51 Transferrin % Sat 17 % (20-50) L 04/17/21 06:51 Ferritin 407.3 ng/ml (8-388) H 04/17/21 06:51 Total Bilirubin 0.6 mg/dl (0.2-1) 04/15/21 21:05 AST U/L (15-37) 04/15/21 21:05 ALT 10 U/L (12-78) L 04/15/21 21:05 Alkaline Phosphatase 90 U/L (45-117) 04/15/21 21:05 Total Protein 7.3 gm/dl (6.4-8.2) 04/15/21 21:05 Albumin 3.2 gm/dl (3.4-5.0) L 04/15/21 21:05 Globulin 4.1 gm/dl (2.5-4.0) H 04/15/21 21:05 Albumin/Globulin Ratio 0.8 (0.9-2) L 04/15/21 21:05 Lipase 129 U/L (73-393) 04/15/21 21:05 Vitamin B12 435 pg/ml (193-986) 04/17/21 06:51 Folate > 20.00 ng/ml (>5.38) 04/17/21 06:51 Urine Color Yellow 04/15/21 21:10 Urine Appearance Turbid (Clear) A 04/15/21 21:10 Urine pH 6.0 (4.5-7.5) 04/15/21 21:10 Ur Specific [place] 1.015 (1.000-1.030) 04/15/21 21:10 Urine Protein 2+ (Negative) H 04/15/21 21:10 Urine Glucose (UA) Negative (Negative) 04/15/21 21:10 Urine Ketones Trace (Negative) H 04/15/21 21:10 Urine Blood 1+ (Negative) H 04/15/21 21:10 Urine Nitrite Positive (Negative) A 04/15/21 21:10 Urine Bilirubin Negative (Negative) 04/15/21 21:10 Urine Urobilinogen Negative (Negative) 04/15/21 21:10 Ur Leukocyte Esterase 3+ (Negative) H 04/15/21 21:10 Urine WBC (Auto) >30 /hpf (0-5) H 04/15/21 21:10 Urine RBC (Auto) 5-10 /hpf (0-4) H 04/15/21 21:10 U Hyaline Cast (Auto) 0 /lpf (0-5) 04/15/21 21:10 U Epithel Cells (Auto) >30 /lpf (0-5) H 04/15/21 21:10 Urine Bacteria (Auto) 4+ (Negative) H 04/15/21 21:10 Urine Yeast Not Reportable 04/15/21 21:10 Nasal Screen MRSA (PCR) Negative (Negative) 04/16/21 04:32 Stl C. diff Tox B Gene Negative Cdiff Gene (Neg) 04/17/21 06:30 COVID-19 Eval Order Covid19 IDNow [facility] 04/15/21 21:18 SARS-CoV-2, RNA, NAAT NEGATIVE (NEGATIVE) 04/15/21 21:18 Blood Type O Positive 04/16/21 00:10 Antibody Screen NEGATIVE 04/16/21 00:10 Impressions Abdomen/Pelvis CT 04/15/21 19:49 CT SCAN OF THE ABDOMEN AND PELVIS WITHOUT IV CONTRAST CLINICAL HISTORY: Lower abdominal pain. COMPARISON STUDY: Renal ultrasound dated 09/05/2016. TECHNIQUE: CT scan of the abdomen and pelvis is performed from the lung bases to the proximal femora. Images are reviewed in the axial, sagittal, and coronal planes. IV contrast was not administered for this examination. A dose lowering technique was utilized adhering to the principles of ALARA. CT DOSE: 983.40 mGycm FINDINGS: Lung bases: The heart is mildly enlarged and without pericardial effusion. The coronary arteries are densely calcified. There is a small hiatal hernia. The lung bases are clear noting dependent atelectasis. Liver: The unenhanced liver is normal in size, contour, and attenuation. There is no intrahepatic biliary ductal dilatation. There are scattered calcified hepatic granulomas. Gallbladder: Unremarkable. Spleen: Normal in size and attenuation. There are calcified splenic granulomas. Pancreas: The unenhanced pancreas is moderately atrophic and grossly unremarkable. Adrenal glands: Unremarkable. Kidneys: The unenhanced kidneys demonstrate cortical atrophy and are without hydronephrosis. There are no renal calculi identified. There is no evidence of contour deforming renal mass lesion. Abdominal vasculature: The abdominal aorta is normal in course and caliber noting advanced atherosclerotic calcification. Bowel: There is no bowel obstruction. The appendix is well-visualized and normal. Peritoneum: There is no intraperitoneal free air or abdominal ascites. Lymphadenopathy: None. Pelvic viscera: Evaluation of the pelvis is degraded by streak artifact from a left hip arthroplasty. The prostate gland is mildly enlarged and heterogeneous noting median lobe hypertrophy. The bladder wall appears thickened and trabeculated indicating chronic outlet obstruction. Skeletal structures: The skeletal structures are osteopenic. There is lumbosacral spondylosis with evidence of L4-L5 spinal fusion. No lytic or blastic lesions are seen. A left hip arthroplasty is in place. There is chronic posttraumatic deformity of the right proximal femur with intertrochanteric and intramedullary nails in place. There are healed right pubic ring fractures. There are numerous healed left-sided rib fractures. IMPRESSION: 1. There are no acute infectious or inflammatory findings in the abdomen or pelvis. 2. Chronic changes as above. ACT 112: Negative or not required by law. Electronically signed by: Sushant Woodruff M.D. 04/15/2021 9:35 PM Chest X-Ray 04/15/21 19:50 SINGLE VIEW CHEST CLINICAL HISTORY: Cough. FINDINGS: 2 AP, portable, upright chest radiographs are compared to study dated 04/24/2020 and correlated with chest CT dated 07/04/2019. The examination is degraded by portable technique and patient rotation. The heart is mildly enlarged noting atherosclerotic calcification of the thoracic aorta. The pulmonary vasculature is noncongested. There are calcified mediastinal lymph nodes. Chronic interstitial thickening is similar to previous. Atelectasis is noted at the left lung base. No airspace consolidation or large pleural effusion is identified. No pneumothorax is seen. The skeletal structures are osteopenic. The bony thorax is grossly intact. IMPRESSION: Mild cardiomegaly with no acute cardiopulmonary abnormality. ACT 112: Negative or not required by law. Electronically signed by: Sushant Woodruff M.D. 04/15/2021 8:15 PM Hospital Course (1) Complicated UTI (urinary tract infection): (2) UTI due to extended-spectrum beta lactamase (ESBL) producing Escherichia coli: (3) Chronic anemia: (4) HTN (hypertension): (5) Parkinson disease: (6) Ambulatory dysfunction: The patient is a 75-year-old man with history of recurrent ESBL E. coli UTI and Parkinson's disease who presented again with symptoms of urinary tract infection. He was admitted to the hospitalist service and started on meropenem. Notably he had been discharged from the hospital recently and given an outpatient course of ertapenem for 10 days. An abdomen pelvis CT was performed revealing no acute infectious or inflammatory findings in the abdomen or pelvis. Chest x-ray was performed with no acute cardiopulmonary abnormality noted. Infectious disease was consulted and saw the patient via telemedicine visit. Their impression included recurrent ESBL E. coli UTI with chronic bladder outlet obstruction. Recommendations included discontinuation of meropenem and continuation of ertapenem 1 g IV daily for 4 to 6 weeks. The rapid recurrence of the infection suggested he likely had an underlying prostatitis and may benefit from a more extended course. Although a PSA could be checked this may be elevated and is nonspecific. Imaging revealed no obvious abscess. Ensuring adequate hydration and complete emptying of the bladder will help future infections. Urology follow-up recommended. While on ertapenem weekly CBC and BMP was recommended. This was communicated to his primary care doctor Dr. Phi Gutierrez. At time of discharge he was mentating clearly and was significantly weak likely secondary to chronic progression of Parkinson's disease. He was accepted back to his personal group home for continuation of IV antibiotics. A PICC line was placed prior to discharge. Close primary care follow-up was recommended. Total Time Total Time Spent Total Time Spent (In Minutes): 60 Discharge Plan Discharge Items Patient Disposition: Personal Alf Reason For Visit: COMP UTI Discharge Diagnosis: Recurrent ESBL E coli UTI Ambulatory dysfunction 2/2 parkinson's disease Activity: Resume your previous activity Non-emergency contact: Primary Care Provider Call non-emergency contact if: you have any medication questions, your symptoms worsen, your pain is not controlled, your pain is worsening and your pain is unusual for you Follow-up/Referrals: [facility] [Primary Care Provider] - Diet: Heart Healthy and Lactose Intolerant Addtl Attending Provider Instructions: Please take all medications as instructed on discharge list below. You have been placed on intravenous ertapenem for the next 4 weeks to treat your recurrent urinary tract infection. This was recommended from Dr. Marquez of Infectious Disease at [facility] in [place], [place]. While on this medication, your PCP, Dr. Gutierrez, will be checking weekly blood work (CBC, BMP) to monitor for any side effects of the drug. This will be infused through your PICC line, which was placed on 04/19/21. It may be prudent to follow-up with Dr. Marquez via televisit to see if further antibiotics may be needed beyond this initial course, however, this decision will be up to you and your PCP. It was a pleasure taking care of you! Please call if you have any questions or problems. You can reach a [facility] hospitalist on duty at [facility] 24 hours a day by calling [phone]. Take care of yourself. Sheila Rosas DO [facility] Hospitalist Pending Studies at Discharge: No Stand-Alone Forms: My [facility] Skilled Items Patient informed of condition?: Yes DNR: No Discharge Level of Care: Other Communicable Disease: No Discharge Prognosis: Stable Lines: PICC Urinary Catheter: No Medications and DC Order Prescriptions: Continued sertraline 100 mg tablet 100 mg PO QAM RF: 0 pantoprazole 40 mg Tablet,Delayed Release (Dr/Ec) 40 mg PO DAILYBB RF: 0 finasteride 5 mg tablet 5 mg PO QAM RF: 0 acetaminophen [Tylenol] 325 mg Tablet 650 mg PO Q4H MDD 3 GR/24 HRS PRN (Reason: Pain) RF: 0 tamsulosin [Flomax] 0.4 mg Capsule 0.4 mg PO HS RF: 0 docusate sodium 100 mg Capsule 100 mg PO BID RF: 0 loratadine 10 mg Tablet 10 mg PO QAM RF: 0 carbidopa-levodopa 25-100 mg tablet 1 tab PO TID RF: 0 ergocalciferol (vitamin D2) [Vitamin D2] 50,000 unit Capsule 50,000 unit PO MO RF: 0 dorzolamide-timolol 22.3-6.8 mg/mL drops 1 drp OPB BID RF: 0 lisinopril 5 mg Tablet 5 mg PO QAM RF: 0 brimonidine 0.2 % drops 1 drp OPB Q12H RF: 0 duloxetine [Cymbalta] 20 mg capsule,delayed release(DR/EC) 20 mg PO BID RF: 0 Desenex 2 % Powder 1 applic TOPICAL BID RF: 0 hydrocortisone 2.5 % cream 1 applic TOPICAL BID PRN (Reason: irritation) RF: 0 Discontinued potassium chloride 10 mEq Tablet Extended Release 10 meq PO QAM RF: 0 Discharge Orders: Discharge Order (Routine); Ordered 04/20/21 Ordered By: Sheila Perez/Other Patient Handouts: Peripherally Inserted Central ..., Caring for Your PICC Dc Admission Data Admit Date/Time: 04/15/21 23:50 Attending Provider: Sheila Rosas Admit Provider: Cristian Kraus Primary Care Provider: [facility] Other Providers: Cristian Kraus ; Denis Cabrera ; Igor Qiu ; Deon Marquez I. ; Juan Guerrero II ; Inga Pyle ; Darion Dunlap Other Interventions: Discharge Summary Assessment (RN) Last Done: 04/20/21 16:59
== END 2021-04-20 17:42 | disposition home or self-care (01) | DRG 690 ==
LOC: ED 19:39 → SUATTDRO 23:50 → 3N 04-16 01:14 → SUATTDRO 04-16 01:14 → 3N 04-16 02:55
DX: N41.9 Inflammatory disease of prostate, unspecified; G30.9 Alzheimer's disease, unspecified; F02.80 Dementia in other diseases classified elsewhere, unspecified severity, without behavioral disturbance, psychotic disturbance, mood disturbance, and anxiety; N32.89 Other specified disorders of bladder; F32.9 Major depressive disorder, single episode, unspecified; R05 Cough; Z16.12 Extended spectrum beta lactamase (ESBL) resistance; Z91.041 Radiographic dye allergy status; D64.9 Anemia, unspecified; G20 Parkinson's disease; Z87.891 Personal history of nicotine dependence; F41.9 Anxiety disorder, unspecified; G62.9 Polyneuropathy, unspecified; I10 Essential (primary) hypertension; N39.0 Urinary tract infection, site not specified; K21.9 Gastro-esophageal reflux disease without esophagitis; B96.20 Unspecified Escherichia coli [E. coli] as the cause of diseases classified elsewhere; Z79.899 Other long term (current) drug therapy

== ENCOUNTER 2022-05-02 19:04 | Observation (INO) ==
[2022-05-02] MEDS ORDERED: ACETAMINOPHEN 1,000 MG/100 ML VIAL IV STA (19:20)
[2022-05-02] MEDS ORDERED: SODIUM CHLORIDE 0.9% 500 ML IV SCH (19:30)
[2022-05-02] MEDS ORDERED: SODIUM CHLORIDE 0.9% 1000ML 1,000 ML IV SCH (19:30)
[2022-05-02 19:46] LABS: Basophils # (auto) 0.01 K/uL (0-0.2); Basophils % (auto) 0.1 %; Hematocrit (blood only) 39.7 % (40.1-51.0); Hemoglobin 13.3 g/dl (14.0-18.0); Immature Granulocytes # (auto) 0.04 K/uL (0.00-0.02); Immature Granulocytes % (auto) 0.5 %; Lymphocytes # (auto) 0.71 K/uL (1.2-3.4); Lymphocytes % (auto) 9.3 %; Mean Corpuscular Hemoglobin 29.8 pg (25.0-34.0); Mean Corpuscular Hgb Conc 33.5 g/dL (32.0-36.0); Mean Platelet Volume 9.5 fL (9.4-12.4); Monocytes # (auto) 0.52 K/uL (0.24-0.82); Monocytes % (auto) 6.8 %; Neutrophils # (auto) 6.39 K/uL (1.4-6.5); Neutrophils % (auto) 83.3 %; Platelet Count 193 K/uL (130-400); RDW Coefficient of Variation 13.3 % (11.5-14.5); RDW Standard Deviation 43.4 fL (36.4-46.3); Red Blood Count 4.46 M/uL (4.63-6.08); White Blood Count 7.67 K/ul (4.8-10.8)
[2022-05-02 20:08] LABS: Anion Gap 9 (3-11); BUN Creatinine Ratio 17.2 (10-20); Blood Urea Nitrogen 15 mg/dl (6-23); Calcium 8.7 mg/dl (8.5-10.1); Carbon Dioxide 23 mmol/L (21-32); Chloride 102 mmol/L (98-107); Est GFR (African American) 97.8 ml/min; Est GFR (Non-African American) 84.4 ml/min; Glucose 97 mg/dl (70-99(Fasting)); Potassium 3.8 mmol/L (3.5-5.1); Sodium 134 mmol/L (136-145)
[2022-05-02 20:11] LABS: Alanine Aminotransferase < 3 U/L (7-52); Albumin Globulin Ratio 1.2 (0.9-2); Albumin Level 3.8 gm/dl (3.4-5.0); Alkaline Phosphatase 99 U/L (34-104); Aspartate Aminotransferase 9 U/L (13-39); Bilirubin,Total 0.7 mg/dl (0.2-1.0); Globulin 3.1 gm/dl (2.5-4.0); Magnesium 1.8 mg/dl (1.7-2.4); Total Protein 6.9 gm/dl (6.0-8.3)
[2022-05-02 20:14] LABS: Troponin I High Sensitivity 4.7 pg/ml (0-20)
--- NOTE | 2022-05-02 20:27 | CT Scan Report ---
CT OF THE ABDOMEN AND PELVIS WITHOUT CONTRAST CLINICAL HISTORY: fever, lower abdominal pain, cough COMPARISON STUDY: CT of the abdomen and pelvis April 15, 2021. TECHNIQUE: Axial images of the abdomen and pelvis were obtained without IV contrast. Images were revi ewed in the axial, sagittal, and coronal planes. Automated exposure control was utilized for the daisy dy. A dose lowering technique was utilized adhering to the principles of ALARA. FINDINGS: Subpleural opacities within the lower lungs reflect atelectasis. No pneumatosis, free air o r portal venous gas is present. Evaluation of the abdomen and pelvis is suboptimal on this unenhanced exam. The liver, spleen, adrenal glands, kidneys and pancreas are unremarkable. There is no hydronep hrosis. There is no biliary or pancreatic ductal dilatation. No peripancreatic or pericholecystic str anding is present. There are calcific granulomas within the spleen. Caliber of the abdominal aorta is normal. There is moderate plaque. Images of the pelvis are degraded by streak artifact from a left h ip arthroplasty and a right femoral internal fixation. Moderate amount of stool within the rectum is present. Mild gaseous distention of the large bowel is noted without evidence for a bowel obstruction . The appendix is normal. There is no ascites. There is no lymphadenopathy. Old right pubic ring frac tures are present. Healed right femoral fractures are noted status post internal fixation. There are postoperative findings within the spine. IMPRESSION: 1. No acute process within the abdomen or pelvis on unenhanced exam. 2. Moderate amount stool within the rectum. Mild gaseous distention of the colon without evidence for a bowel obstruction. ACT 112: Negative or not required by law. Electronically signed by: Adán Ramirez M.D. 05/02/2022 8:25 PM
--- NOTE | 2022-05-02 20:29 | Emergency Department Note ---
Impression & Plan Febrile illness, acute, Cough, Chest congestion, UTI (urinary tract infection) ED Provider Note INFORMANT: Patient ED PROVIDER(S): Eugenio Cardenas MD CHIEF COMPLAINT: Weakness PLAN: Disposition: Admitted Condition: Good Outpatient prescription management: none Referral: None MEDICAL DECISION MAKING: patient presented to the emergency department because of weakness and fever. He had some mild cough and congestion. COVID testing was performed and was negative. Chest x-ray reveals some congestion but no significant infiltrative change. The patient has some abdominal discomfort on abdominal examination. He underwent CT imaging. Some fecal retention was noted but no obvious acute pathology reported per radiology. The patient had an unremarkable CBC and chemistry panel. He was treated with fluids and IV Tylenol. On reassessment he was feeling better. He was still generally weak. I did speak to his son and he and he noted that he has a history of UTIs and seem to be responding well after the fluids and Tylenol. His urinalysis was performed and was very concerning and for infection. I did review his culture results and he most recently had a Proteus and Acinetobacter. Given the sensitivities IV cefepime was chosen. Further management in the hospital will be necessary until his cultures reveal his source this time. [facility] Patient was evaluated in the ER and admitted for further management Triage Nursing notes reviewed and agree them. Vital Signs: reviewed and remarkable for fever Differential diagnosis: Infection, dehydration, metabolic abnormality, hypo/hyperglycemia, electrolyte disturbance, anemia, hypoxia, cardiac sources, intracerebral event, toxicologic, neurologic, as well as other pathologies. Diagnostics interpreted by me: ECG: Twelve-lead ECG reveals normal sinus rhythm at 80 bpm. Inferior Q waves. No ST elevation or depression. No PACs or PVCs. Cardiac Monitoring: Cardiac monitoring ordered by me: The patient was placed on continuous cardiac monitoring and observed. It revealed a normal sinus rhythm at 75 beats per minute without ectopy or evidence of dysrhythmia. Imaging studies: Chest x-ray and CT scan as noted above. I refer you to the EMR for further details. HPI: The patient is a 76 year old male who presents to the Emergency Room with complaints of weakness. This started few days ago and is and is worsening. The patient also notes the following associated symptoms, cough and congestion, shortness of breath, chest pain, mid abdominal pain. The patient has found no relieving factors. Current pain is rated as 2/10. Pt denies LOC, headache, chills, diaphoresis, visual changes, neck pain, nausea, vomiting, abdominal pain, back pain, melena, hematochezia, urinary symptoms, numbness, lymphadenopathy, rash, or other complaints. ROS: See above HPI for pertinent positives & negatives. A total of 10 systems reviewed and were otherwise negative. PAST MEDICAL HISTORY:See Below , UTI, dementia PAST SURGICAL HISTORY:See Below, FAMILY HISTORY:See Below SOCIAL HISTORY:See Below, resides in a [place]iary HOME MEDICATIONS:See Below ALLERGIES:See Below VITALS:See Below PHYSICAL EXAMINATION: GENERAL: Awake, alert, mildly ill-appearing, in no distress HENT: Normocephalic, atraumatic. Oropharynx unremarkable. EYES: Normal conjunctiva. Sclera non-icteric. NECK: Inspection normal. Non-tender. Supple. No nuchal rigidity. FROM. No masses. RESPIRATORY: Scattered rhonchi. No wheezes. No rales. Increased respiratory effort. CARDIAC: Normal rate. Normal rhythm. No murmurs. No rubs. Extremities warm and well perfused. Pulses equal. No JVD. GI: Soft, non-distended. Mid tenderness to palpation. No rebound or guarding. No masses. RECTAL: Deferred. MUSCULOSKELETAL: Atraumatic. Chest examination reveals no tenderness. The back is symmetrical on inspection without obvious abnormality. There is no CVA tend erness to palpation. No joint edema. LOWER EXTREMITIES: Calves are equal size bilaterally and non-tender. No edema. No discoloration. NEURO: Mildly demented sensorium. No sensory deficits noted. Generalized weakness. SKIN: No rash or jaundice noted. Eugenio Cardenas MD Past Med/Surg History Medical History (Updated 05/03/22 @ 00:00 by Eugenio Cardenas MD) Abdominal pain Alzheimer disease Anxiety Dementia Substance abuse UTI due to extended-spectrum beta lactamase (ESBL) producing Escherichia coli Surgical History History of total left hip arthroplasty Family History Other No pertinent family history in first degree relatives Social History Smoking Status: Never smoker Tobacco Type: E-cigarettes / Vaping Number of Years Since Quit: 4; Hx Alcohol Use: No Hx Substance Use: Yes Prescribed Medications: Marijuana Last Used Substance: Days (ago) Last Used Substance Other:: last used october 2017 Substance Use Type Other:: Daily for 50 years Preferred Language: Bengali Communication Ability: Effective Plastic Mould Maker Required: No Beliefs That Will Affect Care: None marital status: Current Living Situation: [facility] 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 Feels Safe at Home: Yes Assistive Devices: Wheelchair Allergies Allergies Allergy/AdvReac Type Severity Reaction Status Date / Time Iodinated Contrast Media Allergy Intermediate IV OR Verified 11/01/21 01:16 ORAL--SKIN FLUSHES Home Meds Home Medications Medication Instructions Recorded Confirmed carbidopa 25 mg-levodopa 100 mg 1 tab PO TID 07/08/18 11/01/21 tablet ergocalciferol (vitamin D2) 1,250 50,000 unit PO WK 07/08/18 11/01/21 mcg (50,000 unit) capsule (Vitamin D2) finasteride 5 mg tablet 5 mg PO QAM 06/26/19 11/01/21 pantoprazole 40 mg tablet,delayed 40 mg PO DAILYBB 06/26/19 11/01/21 release sertraline 100 mg tablet 100 mg PO QAM 06/26/19 11/01/21 dorzolamide 22.3 mg-timolol 6.8 1 drp OPB BID 01/23/20 11/01/21 mg/mL eye drops acetaminophen 325 mg tablet 650 mg PO Q4H PRN Pain 04/24/20 11/01/21 (Tylenol) docusate sodium 100 mg capsule 100 mg PO BID 04/24/20 11/01/21 loratadine 10 mg tablet 10 mg PO QAM 04/24/20 11/01/21 tamsulosin 0.4 mg capsule (Flomax) 0.4 mg PO HS 04/24/20 11/01/21 brimonidine 0.2 % eye drops 1 drp OPB Q12H 03/14/21 11/01/21 duloxetine 20 mg capsule,delayed 20 mg PO BID 03/14/21 11/01/21 release (Cymbalta) hydrocortisone 2.5 % topical cream 1 applic topical BID PRN irritation 04/15/21 11/01/21 miconazole nitrate 2 % topical 1 applic topical BID 04/15/21 11/01/21 powder (Desenex) carboxymethylcellulose sodium 1 % 1 drp ophthalmic (eye) QID 11/01/21 11/01/21 eye drops (Artificial Tears (carboxymethylcellulose)) lisinopril 2.5 mg tablet 2.5 mg PO DAILY 11/01/21 11/01/21 vit C 250 mg-vit E 90 mg-zinc 40 1 tab PO DAILY 11/01/21 11/01/21 mg-copper 1 [id number] capsule (PreserVision AREDS-2) Previous Rx's Medication Instructions Recorded albuterol sulfate 90 mcg/actuation 2 inh inhalation Q4H PRN shortness 11/01/21 aerosol inhaler of breath or wheezing #8.5 grams prednisone 10 mg tablet 10 mg PO .complex #31 tabs 11/01/21 Results & Data (ED) Vital Signs Vital Signs - 24 hr 05/02/22 19:10 05/02/22 19:51 05/02/22 19:51 Temperature 38.0 C H Temperature Source Axillary Pulse Rate 81 Pulse Rate [Left Radial] Pulse Rhythm [Left Radial] Respiratory Rate 26 H Respiratory Effort / Characteristics Non-Labored Respiratory Depth Normal Respiratory Pattern Regular Blood Pressure 162/102 H Blood Pressure [Left Arm] Blood Pressure Mean 122 Blood Pressure Mean [Left Arm] Blood Pressure Position Lying Blood Pressure Position [Left Arm] Pulse Oximetry 94 97 Oxygen Delivery Method Room Air Room Air Room Air Sepsis Recent Fever Within 48 Hours Yes Sepsis New/Unexplained Change in Mental Status No Sepsis Action Taken by Nursing No Action Required 05/02/22 20:58 05/02/22 22:00 Temperature Temperature Source Pulse Rate Pulse Rate [Left Radial] 75 75 Pulse Rhythm [Left Radial] Regular Regular Respiratory Rate 20 20 Respiratory Effort / Characteristics Non-Labored Non-Labored Respiratory Depth Normal Normal Respiratory Pattern Blood Pressure Blood Pressure [Left Arm] 139/83 147/82 H Blood Pressure Mean Blood Pressure Mean [Left Arm] 101 103 Blood Pressure Position Blood Pressure Position [Left Arm] Lying Pulse Oximetry 97 97 Oxygen Delivery Method Room Air Room Air Sepsis Recent Fever Within 48 Hours Sepsis New/Unexplained Change in Mental Status Sepsis Action Taken by Nursing Laboratory Data Result diagrams: 05/02/22 19:27 05/02/22 19:27 Lab Results 05/02/22 05/02/22 05/02/22 Range/Units 19:27 19:27 19:27 WBC 7.67 (4.8-10.8) K/ul RBC 4.46 L (4.63-6.08) M/uL Hgb 13.3 L (14.0-18.0) g/dl Hct 39.7 L (40.1-51.0) % MCV 89.0 (80.0-100.0) fL MCH 29.8 (25.0-34.0) pg MCHC 33.5 (32.0-36.0) g/dL RDW Std Deviation 43.4 (36.4-46.3) fL RDW Coeff of David 13.3 (11.5-14.5) % Plt Count 193 (130-400) K/uL MPV 9.5 (9.4-12.4) fL Immature Gran % (Auto) 0.5 % Neut % (Auto) 83.3 % Lymph % (Auto) 9.3 % Crockett % (Auto) 6.8 % Eos % (Auto) 0.0 % Baso % (Auto) 0.1 % Neut # (Auto) 6.39 (1.4-6.5) K/uL Lymph # (Auto) 0.71 L (1.2-3.4) K/uL Crockett # (Auto) 0.52 (0.24-0.82) K/uL Eos # (Auto) 0.00 (0-0.50) K/uL Baso # (Auto) 0.01 (0-0.2) K/uL Immature Gran # (Auto) 0.04 H (0.00-0.02) K/uL Sodium 134 L (136-145) mmol/L Potassium 3.8 (3.5-5.1) mmol/L Chloride 102 (98-107) mmol/L Carbon Dioxide 23 (21-32) mmol/L Anion Gap 9 (3-11) BUN 15 (6-23) mg/dl Creatinine 0.87 (0.6-1.4) mg/dl Est Cr Clr Drug Dosing Not Reportable Est GFR ( Amer) 97.8 ml/min Est GFR (Non-Af Amer) 84.4 ml/min BUN/Creatinine Ratio 17.2 (10-20) Glucose 97 (70-99(Fasting)) mg/dl Lactate (0.4-2.0) mmol/L Calcium 8.7 (8.5-10.1) mg/dl Magnesium 1.8 (1.7-2.4) mg/dl Total Bilirubin 0.7 (0.2-1.0) mg/dl AST 9 L (13-39) U/L ALT < 3 L (7-52) U/L Alkaline Phosphatase 99 (34-104) U/L Troponin I High Sens 4.7 (0-20) pg/ml Total Protein 6.9 (6.0-8.3) gm/dl Albumin 3.8 (3.4-5.0) gm/dl Globulin 3.1 (2.5-4.0) gm/dl Albumin/Globulin Ratio 1.2 (0.9-2) TSH 1.840 (0.300-4.500) uIu/ml Urine Color Urine Appearance (Clear) Urine pH (4.5-7.5) Ur Specific [place] (1.000-1.030) Urine Protein (Negative) Urine Glucose (UA) (Negative) Urine Ketones (Negative) Urine Blood (Negative) Urine Nitrite (Negative) Urine Bilirubin (Negative) Urine Urobilinogen (Negative) Ur Leukocyte Esterase (Negative) Urine WBC (Auto) (0-5) /hpf Urine RBC (Auto) (0-4) /hpf U Hyaline Cast (Auto) (0-5) /lpf U Epithel Cells (Auto) (0-5) /lpf Urine Bacteria (Auto) (Negative) SARS-CoV-2 (PCR) (Negative) Influenza Type A (PCR) (Neg) Influenza Type B (PCR) (Neg) RSV (RT-PCR) (Neg) 05/02/22 05/02/22 05/02/22 Range/Units 19:27 19:46 22:17 WBC (4.8-10.8) K/ul RBC (4.63-6.08) M/uL Hgb (14.0-18.0) g/dl Hct (40.1-51.0) % MCV (80.0-100.0) fL MCH (25.0-34.0) pg MCHC (32.0-36.0) g/dL RDW Std Deviation (36.4-46.3) fL RDW Coeff of David (11.5-14.5) % Plt Count (130-400) K/uL MPV (9.4-12.4) fL Immature Gran % (Auto) % Neut % (Auto) % Lymph % (Auto) % Crockett % (Auto) % Eos % (Auto) % Baso % (Auto) % Neut # (Auto) (1.4-6.5) K/uL Lymph # (Auto) (1.2-3.4) K/uL Crockett # (Auto) (0.24-0.82) K/uL Eos # (Auto) (0-0.50) K/uL Baso # (Auto) (0-0.2) K/uL Immature Gran # (Auto) (0.00-0.02) K/uL Sodium (136-145) mmol/L Potassium (3.5-5.1) mmol/L Chloride (98-107) mmol/L Carbon Dioxide (21-32) mmol/L Anion Gap (3-11) BUN (6-23) mg/dl Creatinine (0.6-1.4) mg/dl Est Cr Clr Drug Dosing Est GFR ( Amer) ml/min Est GFR (Non-Af Amer) ml/min BUN/Creatinine Ratio (10-20) Glucose (70-99(Fasting)) mg/dl Lactate 0.6 (0.4-2.0) mmol/L Calcium (8.5-10.1) mg/dl Magnesium (1.7-2.4) mg/dl Total Bilirubin (0.2-1.0) mg/dl AST (13-39) U/L ALT (7-52) U/L Alkaline Phosphatase (34-104) U/L Troponin I High Sens (0-20) pg/ml Total Protein (6.0-8.3) gm/dl Albumin (3.4-5.0) gm/dl Globulin (2.5-4.0) gm/dl Albumin/Globulin Ratio (0.9-2) TSH (0.300-4.500) uIu/ml Urine Color Yellow Urine Appearance Cloudy A (Clear) Urine pH 5.5 (4.5-7.5) Ur Specific [place] 1.019 (1.000-1.030) Urine Protein 1+ H (Negative) Urine Glucose (UA) Negative (Negative) Urine Ketones Trace H (Negative) Urine Blood Trace H (Negative) Urine Nitrite Positive A (Negative) Urine Bilirubin Negative (Negative) Urine Urobilinogen Negative (Negative) Ur Leukocyte Esterase 2+ H (Negative) Urine WBC (Auto) >30 H (0-5) /hpf Urine RBC (Auto) 0-4 (0-4) /hpf U Hyaline Cast (Auto) 1-5 (0-5) /lpf U Epithel Cells (Auto) 10-20 H (0-5) /lpf Urine Bacteria (Auto) 4+ H (Negative) SARS-CoV-2 (PCR) NEGATIVE (Negative) Influenza Type A (PCR) Negative (Neg) Influenza Type B (PCR) Negative (Neg) RSV (RT-PCR) Negative (Neg) Administered Medications Sodium Chloride (Nss 1000ml) 1,000 mls @ 125 mls/hr IV .Q8H LISA Stop: 05/03/22 03:29 Last Admin: 05/02/22 22:09 Dose: 125 mls/hr Documented By: KISHORE Discontinued Medications Sodium Chloride (Nss) 500 mls @ 999 mls/hr IV .Q31M LISA Stop: 05/02/22 20:00 Last Infusion: 05/02/22 20:50 Dose: 0 mls/hr Documented By: Admin: 05/02/22 19:48 Dose: 999 mls/hr Documented By: KISHORE Acetaminophen (Ofirmev) 1,000 mg in 100 mls @ 400 mls/hr IV NOW STA Stop: 05/02/22 19:34 Last Infusion: 05/02/22 20:50 Dose: 0 mls/hr Documented By: Admin: 05/02/22 19:48 Dose: 400 mls/hr Documented By: KISHORE Cefepime HCl (Maxipime) 2,000 mg in 20 mls @ 5 mls/min IV NOW STA; Protocol Stop: 05/02/22 23:11 Last Admin: 05/02/22 23:20 Dose: 5 mls/min Documented By: KISHORE Imaging Data Radiologist's Impression: Abdomen/Pelvis CT 05/02/22 19:20 CT OF THE ABDOMEN AND PELVIS WITHOUT CONTRAST CLINICAL HISTORY: fever, lower abdominal pain, cough COMPARISON STUDY: CT of the abdomen and pelvis April 15, 2021. TECHNIQUE: Axial images of the abdomen and pelvis were obtained without IV contrast. Images were reviewed in the axial, sagittal, and coronal planes. Automated exposure control was utilized for the study. A dose lowering technique was utilized adhering to the principles of ALARA. FINDINGS: Subpleural opacities within the lower lungs reflect atelectasis. No pneumatosis, free air or portal venous gas is present. Evaluation of the abdomen and pelvis is suboptimal on this unenhanced exam. The liver, spleen, adrenal glands, kidneys and pancreas are unremarkable. There is no hydronephrosis. There is no biliary or pancreatic ductal dilatation. No peripancreatic or pericholecystic stranding is present. There are calcific granulomas within the spleen. Caliber of the abdominal aorta is normal. There is moderate plaque. Images of the pelvis are degraded by streak artifact from a left hip arthroplasty and a right femoral internal fixation. Moderate amount of stool within the rectum is present. Mild gaseous distention of the large bowel is noted without evidence for a bowel obstruction. The appendix is normal. There is no ascites. There is no lymphadenopathy. Old right pubic ring fractures are present. Healed right femoral fractures are noted status post internal fixation. There are postoperative findings within the spine. IMPRESSION: 1. No acute process within the abdomen or pelvis on unenhanced exam. 2. Moderate amount stool within the rectum. Mild gaseous distention of the colon without evidence for a bowel obstruction. ACT 112: Negative or not required by law. Electronically signed by: Adán Ramirez M.D. 05/02/2022 8:25 PM Discharge Plan Visit Data Chief Complaint: Weakness ED Provider: Eugenio Cardenas Discharge Problem: Febrile illness, acute, Cough, Chest congestion, UTI (urinary tract infection) Forms Stand Alone Forms: My [facility] [employer] Prescriptions Prescriptions: No Action sertraline 100 mg tablet 100 mg PO QAM pantoprazole 40 mg Tablet,Delayed Release (Dr/Ec) 40 mg PO DAILYBB Rx Instructions: TAKE THIS MEDICATION ONCE DAILY BEFORE BREAKFAST finasteride 5 mg tablet 5 mg PO QAM acetaminophen [Tylenol] 325 mg Tablet 650 mg PO Q4H MDD 3 GR/24 HRS PRN (Reason: Pain) tamsulosin [Flomax] 0.4 mg Capsule 0.4 mg PO HS docusate sodium 100 mg Capsule 100 mg PO BID loratadine 10 mg Tablet 10 mg PO QAM carbidopa-levodopa 25-100 mg tablet 1 tab PO TID Rx Instructions: Daily at 0800, 1500, and 2000 ergocalciferol (vitamin D2) [Vitamin D2] 50,000 unit Capsule 50,000 unit PO WK Rx Instructions: TAKE THIS MEDICATION EVERY SATURDAY AT 0800 dorzolamide-timolol 22.3-6.8 mg/mL drops 1 drp OPB BID Rx Instructions: Takes at 0800 and 2000 brimonidine 0.2 % drops 1 drp OPB Q12H duloxetine [Cymbalta] 20 mg capsule,delayed release(DR/EC) 20 mg PO BID Desenex 2 % Powder 1 applic TOPICAL BID Rx Instructions: use on afftected area twice a day for rash/irritation at 10am and 7pm hydrocortisone 2.5 % cream 1 applic TOPICAL BID PRN (Reason: irritation) Rx Instructions: apply to pink,scaly,itchy skin on face up to twice a day for irritaion lisinopril 2.5 mg tablet 2.5 mg PO DAILY PreserVision AREDS-2 250-90-40-1 mg Capsule 1 tab PO DAILY Artificial Tears (cmc) 1 % Drops 1 drp OPHTHALMIC (EYE) QID albuterol sulfate 90 mcg/actuation HFA aerosol inhaler 2 inh inhalation Q4H PRN (Reason: shortness of breath or wheezing) Qty: 8.5 0RF prednisone 10 mg tablet 10 mg PO .complex Qty: 31 0RF Rx Instructions: Prednisone 40 mg for 4 days, 30 mg for 3 days, 20 mg for 2 days and 10 mg for 2 days. Referrals Referrals: [facility] [Primary Care Provider] -
[2022-05-02 21:15] LABS: Influenza A virus by PCR Negative (Neg); Influenza B virus by PCR Negative (Neg); RSV by PCR Negative (Neg); SARS CoV2 RNA(COVID-19) InHosp NEGATIVE (Negative)
[2022-05-02 22:52] LABS: Appearance Urine Cloudy (Clear); Bacteria Urine Automated 4+ (Negative); Bilirubin Urine Negative (Negative); Blood Urine Trace (Negative); Color Urine Yellow; Glucose Urine UA Negative (Negative); Ketones Urine Trace (Negative); Leukocyte Esterase Urine 2+ (Negative); Nitrite Urine Positive (Negative); Protein Urine 1+ (Negative); RBC Urine Automated 0-4 /hpf (0-4); Specific Gravity Urine 1.019 (1.000-1.030); Urobilinogen Urine Negative (Negative); WBC Urine Automated >30 /hpf (0-5); pH Urine 5.5 (4.5-7.5)
[2022-05-02] MEDS ORDERED: CEFEPIME 2,000 MG/20 ML VIAL IV STA (23:08)
[2022-05-03] MEDS ORDERED: POLYETHYLENE (MIRALAX) 17 GM PACK PO PRN (02:45)
[2022-05-03] MEDS ORDERED: ACETAMINOPHEN 325 MG TAB PO PRN (02:45)
[2022-05-03] MEDS ORDERED: ALBUTEROL HFA 8 GM INHALER INH PRN (02:45)
[2022-05-03] MEDS ORDERED: NITROGLYCERIN SL 0.4 MG/TAB TAB SL PRN (02:45)
--- NOTE | 2022-05-03 02:49 | History and Physical Report ---
DATE OF ADMISSION: 05/03/2022. CHIEF COMPLAINT: Febrile illness. HISTORY OF PRESENT ILLNESS: This is a 76-year-old male with past medical history significant for Parkinson disease, hypertension, chronic anemia, history of right hip surgery, history of ESBL UTI, history of frequent recurrent UTIs, who is currently living at [facility], presents with febrile illness. The patient was sent here because of fever. The patient also had some cough, some chest congestion and had some shortness of breath and chest pain initially when he came in, but they are all resolved. Currently, resting comfortably. The patient says he can ambulate with a walker, he is speaking in low voices. Says he has to cut the meat into pieces for him to swallow. Denies any headache currently. Says his vision is not that great. Denies any runny nose. Currently, no chest pain or shortness of breath. No nausea, no abdominal pain. Tried to call [facility], not able to reach them. ALLERGIES: IODINE CONTRAST MEDIA. PAST MEDICAL HISTORY: As mentioned above. PAST SURGICAL HISTORY: Dental surgery, tonsillectomy, adenoidectomy, sinus surgery, knee surgery, right hip fracture surgery. FAMILY HISTORY: Significant for lung cancer and diabetes. PERSONAL HISTORY: As per previous records, nonsmoker. No alcohol use. prison resident. MEDICATIONS: The patient seems to be on Tylenol p.r.n., albuterol p.r.n., brimonidine one drop ophthalmic b.i.d., carbidopa/levodopa 1 tablet p.o. t.i.d., Colace 100 mg p.o. b.i.d., dorzolamide/timolol one drop ophthalmic b.i.d., Cymbalta 20 mg p.o. b.i.d., vitamin D 50,000 International Units p.o. weekly, finasteride 5 mg p.o. a.m., lisinopril 2.5 mg p.o. daily, loratadine 10 mg p.o. daily, Protonix 40 mg p.o. daily, sertraline 100 mg p.o. daily, Flomax 0.4 mg daily, PreserVision AREDS 1 tablet p.o. daily. REVIEW OF SYSTEMS: As per HPI. Could not get complete review of systems, the patient is a poor historian. PHYSICAL EXAMINATION: GENERAL: The patient is alert and awake, not in acute distress. VITAL SIGNS: Temperature 38, pulse 75, respiratory rate 20, blood pressure 147/82, oxygen 97% on room air. HEENT: Pupils equal, round and reactive to light. Oral mucosa dry. NECK: No JVD, no neck masses. CARDIOVASCULAR: S1 and S2 heard. Regular rate and rhythm. No murmur, no gallop. RESPIRATORY SYSTEM: Normal AP diameter. No accessory muscle use. No wheezing, no crackles. ABDOMEN: Soft, bowel sounds present, nontender, no distention. CENTRAL NERVOUS SYSTEM: Alert and oriented to name, place. Could able to tell this is April and could tell the year. No obvious facial droop. Speech, he is speaking in low voices. Able to move his extremities. EXTREMITIES: No edema, no erythema. LABORATORY DATA: WBC 7.6, hemoglobin 13.3, hematocrit 39.7, platelets 193, sodium 134, potassium 3.8, chloride 102, bicarbonate 23, BUN 15, creatinine 0.8, serum glucose 97, lactate 0.6, calcium 8.7, magnesium 1.8, total bilirubin 0.7, AST 9, ALT less than 3, alkaline phosphatase 99. Troponin I high sensitivity 4.7. TSH 1.8. Urinalysis positive for nitrite, positive leukocyte esterase and positive for bacteria. SARS-CoV-2 PCR negative. Influenza A and B PCR negative. RSV PCR negative. IMAGING DATA: Chest x-ray, no obvious findings. CT of abdomen and pelvis without contrast, no acute process, moderate amount of stool, mild gaseous distention of the colon without evidence of bowel obstruction. EKG: Normal sinus rhythm at a rate of 80. T-wave inversions in the inferior leads. ASSESSMENT AND PLAN: This a 76-year-old [facility] resident presents with febrile illness. 1. Febrile illness: Initially he had some shortness of breath and cough, chest pain, but chest ray was unremarkable and COVID test is negative and also currently his shortness of breath and chest pain improved. His UA is positive, possibly his febrile illness symptoms could be from the urinary tract infection. History of ESBL in the past. We will start him on Invanz for now. Follow the cultures. IV fluids. Monitor in the hospital. 2. History of high blood pressure: Continue his home medication. 3. History of depression: Continue Zoloft. 4. Benign prostatic hypertrophy: Continue Flomax and finasteride. 5. Gastroesophageal reflux disease: Continue Protonix. 6. Parkinson disease: Continue his carbidopa/levodopa. 7. Deep vein thrombosis prophylaxis: Place him on Lovenox. DISPOSITION: Closely monitor in the [facility]. PT/OT prior to discharge. Social service to help with discharge planning. CODE STATUS: Level 1 full code as per my discussion with the patient. Job ID: [id number] [facility]
[2022-05-03] MEDS: SODIUM CHLORIDE 0.9% 1000ML 1,000 ML IV SCH ×2 (03:34→13:40)
[2022-05-03] MEDS: PANTOprazole 40 MG TAB PO SCH (05:40)
[2022-05-03 06:03] LABS: Basophils # (auto) 0.01 K/uL (0-0.2); Basophils % (auto) 0.2 %; Hematocrit (blood only) 44.2 % (40.1-51.0); Immature Granulocytes # (auto) 0.04 K/uL (0.00-0.02); Immature Granulocytes % (auto) 0.6 %; Lymphocytes # (auto) 0.77 K/uL (1.2-3.4); Lymphocytes % (auto) 12.2 %; Mean Corpuscular Hemoglobin 29.2 pg (25.0-34.0); Mean Corpuscular Hgb Conc 31.7 g/dL (32.0-36.0); Mean Corpuscular Volume 92.1 fL (80.0-100.0); Mean Platelet Volume 9.4 fL (9.4-12.4); Monocytes # (auto) 0.47 K/uL (0.24-0.82); Monocytes % (auto) 7.4 %; Neutrophils # (auto) 5.04 K/uL (1.4-6.5); Neutrophils % (auto) 79.6 %; Platelet Count 153 K/uL (130-400); RDW Coefficient of Variation 13.4 % (11.5-14.5); RDW Standard Deviation 45.7 fL (36.4-46.3); White Blood Count 6.33 K/ul (4.8-10.8)
[2022-05-03 06:24] LABS: BUN Creatinine Ratio 18.8 (10-20); Calcium 8.7 mg/dl (8.5-10.1); Creatinine Clr Calc Pharmacy 92.8 ml/min; Est GFR (African American) 101.3 ml/min; Est GFR (Non-African American) 87.4 ml/min
--- NOTE | 2022-05-03 06:49 | XRay Report ---
XR chest 1V portable HISTORY: 76 years-old Male weakness, cough acute weakness with cough COMPARISON: Chest radiograph 11/01/2021 TECHNIQUE: Portable AP view of the chest FINDINGS: Cardiac silhouette is enlarged. The patient is rotated towards the left. Atherosclerosis of the aorta . Mild chronic interstitial coarsening. No pneumothorax, large pleural effusion or overt pulmonary ed kelsi. Degenerative changes of the shoulders and spine. IMPRESSION: No acute process. ACT 112: Negative or not required by law. The above report was generated using voice recognition software. It may contain grammatical, syntax o r spelling errors. Electronically signed by: Valente Jung M.D. 05/03/2022 6:48 AM
[2022-05-03] MEDS ORDERED: ERTAPENEM SODIUM 10 ML IV SCH (07:00)
[2022-05-03] MEDS: CARBIDOPA/LEVODOPA 25/100MG TAB PO SCH ×3 (08:39→21:21)
[2022-05-03] MEDS: FINASTERIDE 5 MG TAB PO SCH (08:39)
[2022-05-03] MEDS: CEROVITE ADV FORMULA TAB PO SCH (08:39)
[2022-05-03] MEDS: ERTAPENEM SODIUM 1,000 MG in SYRINGE 0 ML IV SCH (08:39)
[2022-05-03] MEDS: DULoxetine HCL 20 MG CAP PO SCH ×2 (08:39→21:23)
[2022-05-03] MEDS: ENOXAPARIN INJ 40 MG/0.4 ML SYR SQ SCH (08:40)
[2022-05-03] MEDS: DOCUSATE SODIUM 100 MG CAP PO SCH ×2 (08:40→21:22)
[2022-05-03] MEDS: LORATADINE 10 MG TAB PO SCH (08:40)
[2022-05-03] MEDS: lisinopril 2.5 MG TAB PO SCH (08:40)
[2022-05-03] MEDS: SERTRALINE HCL 100 MG TABLET PO SCH (08:40)
[2022-05-03] MEDS: DORZOLAMIDE/TIMOLOL 22.3/6.8MG/ML 10 ML BTL OPB SCH ×2 (08:41→21:21)
[2022-05-03] MEDS: BRIMONIDINE TARTRATE 0.2% 5ML OPB SCH ×2 (08:42→21:22)
[2022-05-03] MEDS: ARTIFICIAL TEARS OP SCH ×4 (08:43→21:24)
--- NOTE | 2022-05-03 10:07 | Hospitalist Progress Note ---
Date of Service May 03, 2022 Assessment & Plan (1) UTI (urinary tract infection): (2) Ambulatory dysfunction: Plan This a 76-year-old [facility] resident presents with febrile illness. 1. Febrile illness: Initially he had some shortness of breath and cough, chest pain, but chest ray was unremarkable and COVID test is negative and also currently his shortness of breath and chest pain improved. His UA is positive, possibly his febrile illness symptoms could be from the urinary tract infection. History of ESBL in the past. We will start him on Invanz for now. Follow the cultures. IV fluids. Monitor in the hospital. 2. History of high blood pressure: Continue his home medication. 3. History of depression: Continue Zoloft. 4. Benign prostatic hypertrophy: Continue Flomax and finasteride. 5. Gastroesophageal reflux disease: Continue Protonix. 6. Parkinson disease: Continue his carbidopa/levodopa. 7. Deep vein thrombosis prophylaxis: Place him on Lovenox. DISPOSITION: Closely monitor in the [employer]. PT/OT prior to discharge. Social service to help with discharge planning. CODE STATUS: Level 1 full code as per my discussion with the patient. Admission and Anticipated Discharge Date Admission Date: May 03, 2022 Subjective Seen at bedside. States that he is feeling much better currently. States he had some breakfast. Denies active chest pain shortness of breath nausea vomiting. Review of Systems Review of Systems: All systems reviewed and negative other than as described above in the history and physical Physical Exam Physical Exam: Constitutional:WD/WN, vitals as above Neck: trachea midline, no thyromegaly Respiratory: normal respiratory effort, lungs clear to auscultationAuscultation:no rhonchi and no wheezes Cardiovascular:RRR, no murmur, no edemaHeart Sounds:no murmur Gastrointestinal (Abdomen):normal bowel sounds, soft, nontender, no hepatosplenomegaly Musculoskeletal:no cyanosis or clubbing, Skin: no rashes, warm and dry Neurologic: AA+Ox3, euthymic affect Results & Data Results & Data ([facility]) Vital Signs (Past 12 Hours) Vital Signs Temp Pulse Pulse Pulse Resp BP BP 05/03/22 07:43 36.8 C 78 18 05/03/22 07:36 73 05/03/22 02:37 86 05/03/22 02:48 36.4 C L 71 19 08/18/22 02:45 05/03/22 02:45 36.4 C L 71 05/03/22 01:27 86 20 144/70 H 05/03/22 00:00 68 20 148/77 H BP Pulse Ox O2 Del Method 05/03/22 07:43 179/79 H 92 Room Air 05/03/22 07:36 05/03/22 02:37 05/03/22 02:48 160/77 H 96 Room Air 05/03/22 02:45 Room Air 05/03/22 02:45 160/77 H 96 Room Air 05/03/22 01:27 98 Room Air 05/03/22 00:00 96 Room Air Laboratory Results Short CBC 05/02/22 05/03/22 Range/Units 19:27 05:33 WBC 7.67 6.33 (4.8-10.8) K/ul Hgb 13.3 L 14.0 (14.0-18.0) g/dl Hct 39.7 L 44.2 (40.1-51.0) % Plt Count 193 153 (130-400) K/uL BMP 05/02/22 05/03/22 19:27 05:33 Sodium 134 L 135 L Potassium 3.8 4.0 Chloride 102 105 Carbon Dioxide 23 19 L BUN 15 15 Creatinine 0.87 0.80 Glucose 97 85 Calcium 8.7 8.7 Liver Function 05/02/22 Range/Units 19:27 Total Bilirubin 0.7 (0.2-1.0) mg/dl AST 9 L (13-39) U/L ALT < 3 L (7-52) U/L Alkaline Phosphatase 99 (34-104) U/L Albumin 3.8 (3.4-5.0) gm/dl Urine 05/02/22 Range/Units 22:17 Urine Color Yellow Urine Appearance Cloudy A (Clear) Urine pH 5.5 (4.5-7.5) Ur Specific Oriental 1.019 (1.000-1.030) Urine Protein 1+ H (Negative) Urine Glucose (UA) Negative (Negative) Diagnostic Findings Chest X-Ray 05/02/22 19:20 XR chest 1V portable HISTORY: 76 years-old Male weakness, cough acute weakness with cough COMPARISON: Chest radiograph 11/01/2021 TECHNIQUE: Portable AP view of the chest FINDINGS: Cardiac silhouette is enlarged. The patient is rotated towards the left. Atherosclerosis of the aorta. Mild chronic interstitial coarsening. No pneumothorax, large pleural effusion or overt pulmonary edema. Degenerative changes of the shoulders and spine. IMPRESSION: No acute process. ACT 112: Negative or not required by law. The above report was generated using voice recognition software. It may contain grammatical, syntax or spelling errors. Electronically signed by: Valente Jung M.D. 05/03/2022 6:48 AM Medications Administered Current Inpatient Medications Acetaminophen (Acetaminophen 325 Mg Tab) 650 mg PO Q4H PRN PRN Reason: Pain or Fever Stop: 06/02/22 02:44 Albuterol (Albuterol Hfa 8 Gm Inhaler) 2 puffs INH Q4H PRN PRN Reason: shortness of breath or wheezin Stop: 06/02/22 02:44 Artificial Tears (Artificial Tears) 1 drops OP QID [facility] Stop: 06/02/22 08:59 Last Admin: 05/03/22 08:43 Dose: 1 drops Brimonidine Tartrate (Brimonidine Tartrate 0.2% 5ml) 1 drops OPB Q12 [facility] Stop: 06/02/22 08:59 Last Admin: 05/03/22 08:42 Dose: 1 drops Carbidopa/Levodopa (Carbidopa/Levodopa 25/100mg Tab) 1 tab PO TID@0800,1499,1999 [facility] Stop: 06/02/22 07:59 Last Admin: 05/03/22 08:39 Dose: 1 tab Docusate Sodium (Docusate Sodium 100 Mg Cap) 100 mg PO BID [facility] Stop: 06/02/22 08:59 Last Admin: 05/03/22 08:40 Dose: 100 mg Dorzolamide/Timolol (Dorzolamide/Timolol 22.3/6.8mg/Ml 10 Ml Btl) 1 drops OPB BID@799,1999 [facility] Stop: 06/02/22 07:59 Last Admin: 05/03/22 08:41 Dose: 1 drops Duloxetine HCl (Duloxetine Hcl 20 Mg Cap) 20 mg PO BID [facility] Stop: 06/02/22 08:59 Last Admin: 05/03/22 08:39 Dose: 20 mg Enoxaparin Sodium (Enoxaparin Inj 40 Mg/0.4 Ml Syr) 40 mg SQ Q24H [facility] Stop: 06/02/22 08:59 Last Admin: 05/03/22 08:40 Dose: 40 mg Finasteride (Finasteride 5 Mg Tab) 5 mg PO QAM [facility] Stop: 06/02/22 08:59 Last Admin: 05/03/22 08:39 Dose: 5 mg Sodium Chloride (Nss 1000ml) 1,000 mls @ 100 mls/hr IV .Q10H [facility] Stop: 05/03/22 22:44 Last Admin: 05/03/22 03:34 Dose: 100 mls/hr Ertapenem 1,000 mg/ Syringe 10 mls @ 2 mls/min IV Q24H [facility] Stop: 05/13/22 06:59 Last Admin: 05/03/22 08:39 Dose: 2 mls/min Lisinopril (Lisinopril 2.5 Mg Tab) 2.5 mg PO DAILY [facility] Stop: 06/02/22 08:59 Last Admin: 05/03/22 08:40 Dose: 2.5 mg Loratadine (Loratadine 10 Mg Tab) 10 mg PO QAM [facility] Stop: 06/02/22 08:59 Last Admin: 05/03/22 08:40 Dose: 10 mg Miconazole Nitrate (Miconazole Nitrate Powder 43 Gm) 1 appln TOP BID@1000,1900 [facility] Stop: 06/02/22 09:59 Multivitamins/Minerals (Cerovite Adv Formula Tab) 1 tab PO DAILY [facility] Stop: 06/02/22 08:59 Last Admin: 05/03/22 08:39 Dose: 1 tab Nitroglycerin (Nitroglycerin Sl 0.4 Mg/Tab Tab) 0.4 mg SL UD PRN PRN Reason: Chest Pain Stop: 06/02/22 02:44 Pantoprazole Sodium (Pantoprazole 40 Mg Tab) 40 mg PO DAILYBB [facility] Stop: 06/02/22 06:29 Last Admin: 05/03/22 05:40 Dose: 40 mg Polyethylene Glycol (Polyethylene (Miralax) 17 Gm Pack) 17 gm PO DAILY PRN PRN Reason: Constipation Stop: 06/02/22 02:44 Sertraline HCl (Sertraline Hcl 100 Mg Tablet) 100 mg PO QAM [facility] Stop: 06/02/22 08:59 Last Admin: 05/03/22 08:40 Dose: 100 mg Tamsulosin HCl (Tamsulosin Hcl 0.4 Mg Cap) 0.4 mg PO [facility] Stop: 06/02/22 20:59
[2022-05-03] MEDS: MICONAZOLE NITRATE POWDER 43 GM TOP SCH ×2 (10:22→21:25)
--- NOTE | 2022-05-03 12:40 | Electrocardiogram Report ---
Test Reason : Blood Pressure : / mmHG Vent. Rate : 080 BPM Atrial Rate : 080 BPM P-R Int : 168 ms QRS Dur : 100 ms QT Int : 382 ms P-R-T Axes : 047 -05 021 degrees QTc Int : 440 ms Normal sinus rhythm Inferior infarct , age undetermined Abnormal ECG When compared with ECG of 01-NOV-2021 00:21, Inferior infarct is now Present T wave inversion now evident in Inferior leads Confirmed by Milad Mas ([id number]) on 05/03/2022 12:40:16 PM Referred By: [facility] Confirmed By:Milad Mas
[2022-05-03] MEDS: TAMSULOSIN HCL 0.4 MG CAP PO SCH (21:25)
[2022-05-04] MEDS: PANTOprazole 40 MG TAB PO SCH (05:55)
[2022-05-04] MEDS: ERTAPENEM SODIUM 1,000 MG in SYRINGE 0 ML IV SCH (06:20)
[2022-05-04] MEDS: ENOXAPARIN INJ 40 MG/0.4 ML SYR SQ SCH (08:24)
[2022-05-04] MEDS: DULoxetine HCL 20 MG CAP PO SCH ×2 (08:26→21:06)
[2022-05-04] MEDS: SERTRALINE HCL 100 MG TABLET PO SCH (08:26)
[2022-05-04] MEDS: CEROVITE ADV FORMULA TAB PO SCH (08:26)
[2022-05-04] MEDS: LORATADINE 10 MG TAB PO SCH (08:26)
[2022-05-04] MEDS: lisinopril 2.5 MG TAB PO SCH (08:26)
[2022-05-04] MEDS: FINASTERIDE 5 MG TAB PO SCH (08:26)
[2022-05-04] MEDS: CARBIDOPA/LEVODOPA 25/100MG TAB PO SCH ×3 (08:27→21:08)
[2022-05-04] MEDS: DOCUSATE SODIUM 100 MG CAP PO SCH ×2 (08:27→21:08)
[2022-05-04] MEDS: ARTIFICIAL TEARS OP SCH ×4 (08:30→21:10)
[2022-05-04] MEDS: BRIMONIDINE TARTRATE 0.2% 5ML OPB SCH ×2 (08:30→21:09)
[2022-05-04] MEDS: DORZOLAMIDE/TIMOLOL 22.3/6.8MG/ML 10 ML BTL OPB SCH ×2 (08:30→21:10)
[2022-05-04 08:32] LABS: Hematocrit (blood only) 36.1 % (40.1-51.0); Mean Corpuscular Hemoglobin 29.8 pg (25.0-34.0); Mean Corpuscular Hgb Conc 33.2 g/dL (32.0-36.0); Mean Corpuscular Volume 89.6 fL (80.0-100.0); Mean Platelet Volume 9.7 fL (9.4-12.4); Platelet Count 171 K/uL (130-400); RDW Coefficient of Variation 13.5 % (11.5-14.5); RDW Standard Deviation 44.6 fL (36.4-46.3); Red Blood Count 4.03 M/uL (4.63-6.08); White Blood Count 5.25 K/ul (4.8-10.8)
[2022-05-04 08:56] LABS: Basophils # (auto) 0.02 K/uL (0-0.2); Basophils % (auto) 0.4 %; Eosinophils # (auto) 0.04 K/uL (0-0.50); Eosinophils % (auto) 0.8 %; Immature Granulocytes # (auto) 0.02 K/uL (0.00-0.02); Immature Granulocytes % (auto) 0.4 %; Lymphocytes # (auto) 0.95 K/uL (1.2-3.4); Lymphocytes % (auto) 18.1 %; Monocytes # (auto) 0.64 K/uL (0.24-0.82); Monocytes % (auto) 12.2 %; Neutrophils # (auto) 3.58 K/uL (1.4-6.5); Neutrophils % (auto) 68.1 %
[2022-05-04 08:59] LABS: BUN Creatinine Ratio 17.9 (10-20); Calcium 8.3 mg/dl (8.5-10.1); Creatinine Clr Calc Pharmacy 110.8 ml/min; Est GFR (African American) 108.9 ml/min; Potassium 3.5 mmol/L (3.5-5.1)
[2022-05-04] MEDS: MICONAZOLE NITRATE POWDER 43 GM TOP SCH ×2 (10:00→21:11)
--- NOTE | 2022-05-04 10:48 | Hospitalist Progress Note ---
Date of Service May 04, 2022 Assessment & Plan (1) UTI (urinary tract infection): (2) Ambulatory dysfunction: Plan This a 76-year-old [facility] resident presents with febrile illness. 1. Febrile illness: Initially he had some shortness of breath and cough, chest pain, but chest ray was unremarkable and COVID test is negative and also currently his shortness of breath and chest pain improved. His UA is positive, possibly his febrile illness symptoms could be from the urinary tract infection. History of ESBL in the past. However recent cultures growing Proteus mirabilis and axitinib after. E. coli growing. Previously ESBL. Discussed with infectious disease awaiting recommendation. 2. History of high blood pressure: Continue his home medication. 3. History of depression: Continue Zoloft. 4. Benign prostatic hypertrophy: Continue Flomax and finasteride. 5. Gastroesophageal reflux disease: Continue Protonix. 6. Parkinson disease: Continue his carbidopa/levodopa. 7. Deep vein thrombosis prophylaxis: Place him on Lovenox. DISPOSITION: Closely monitor in the [employer]. PT/OT prior to discharge. Social service to help with discharge planning. CODE STATUS: Level 1 full code as per my discussion with the patient. Admission and Anticipated Discharge Date Admission Date: May 03, 2022 Subjective Seen at bedside. States that he is feeling much better currently. States he had some breakfast. Denies active chest pain shortness of breath nausea vomiting. Review of Systems Review of Systems: All systems reviewed and negative other than as described above in the history and physical Physical Exam Physical Exam: Constitutional:WD/WN, vitals as above Neck: trachea midline, no thyromegaly Respiratory: normal respiratory effort, lungs clear to auscultationAuscultation:no rhonchi and no wheezes Cardiovascular:RRR, no murmur, no edemaHeart Sounds:no murmur Gastrointestinal (Abdomen):normal bowel sounds, soft, nontender, no hepatosplenomegaly Musculoskeletal:no cyanosis or clubbing, Skin: no rashes, warm and dry Neurologic: AA+Ox3, euthymic affect Results & Data Results & Data ([facility]) Vital Signs (Past 12 Hours) Vital Signs Temp Pulse Pulse Resp BP Pulse Ox O2 Del Method 05/04/22 07:49 36.7 C 55 L 18 145/80 H 95 Room Air 05/04/22 07:21 58 L 05/04/22 04:04 37.0 C 58 L 18 137/76 93 Room Air 05/03/22 23:28 37.1 C 63 20 134/78 92 Room Air Laboratory Results Short CBC 05/04/22 Range/Units 07:26 WBC 5.25 (4.8-10.8) K/ul Hgb 12.0 L (14.0-18.0) g/dl Hct 36.1 L (40.1-51.0) % Plt Count 171 (130-400) K/uL BMP 05/04/22 07:26 Sodium 137 Potassium 3.5 Chloride 104 Carbon Dioxide 26 BUN 12 Creatinine 0.67 Glucose 93 Calcium 8.3 L
[2022-05-04] MEDS: oxyCODONE HCL IR 5 MG TAB (IMMEDIATE RELEASE) PO PRN (21:06)
[2022-05-04] MEDS: TAMSULOSIN HCL 0.4 MG CAP PO SCH (21:08)
[2022-05-05] MEDS: PANTOprazole 40 MG TAB PO SCH (05:55)
[2022-05-05] MEDS: hydrALAZINE 10 MG TAB PO PRN (06:01)
[2022-05-05] MEDS: oxyCODONE HCL IR 5 MG TAB (IMMEDIATE RELEASE) PO PRN (07:28)
[2022-05-05] MEDS: ERTAPENEM SODIUM 1,000 MG in SYRINGE 0 ML IV SCH (07:28)
[2022-05-05] MEDS: DULoxetine HCL 20 MG CAP PO SCH ×2 (08:35→20:06)
[2022-05-05] MEDS: ENOXAPARIN INJ 40 MG/0.4 ML SYR SQ SCH (08:35)
[2022-05-05] MEDS: SERTRALINE HCL 100 MG TABLET PO SCH (08:35)
[2022-05-05] MEDS: lisinopril 2.5 MG TAB PO SCH (08:35)
[2022-05-05] MEDS: CEROVITE ADV FORMULA TAB PO SCH (08:35)
[2022-05-05] MEDS: CARBIDOPA/LEVODOPA 25/100MG TAB PO SCH ×3 (08:35→20:08)
[2022-05-05] MEDS: DOCUSATE SODIUM 100 MG CAP PO SCH ×2 (08:35→20:06)
[2022-05-05] MEDS: FINASTERIDE 5 MG TAB PO SCH (08:35)
[2022-05-05] MEDS: LORATADINE 10 MG TAB PO SCH (08:35)
[2022-05-05] MEDS: ARTIFICIAL TEARS OP SCH ×4 (08:36→20:11)
[2022-05-05] MEDS: DORZOLAMIDE/TIMOLOL 22.3/6.8MG/ML 10 ML BTL OPB SCH ×2 (08:36→20:09)
[2022-05-05] MEDS: BRIMONIDINE TARTRATE 0.2% 5ML OPB SCH ×2 (08:36→20:15)
[2022-05-05] MEDS: MICONAZOLE NITRATE POWDER 43 GM TOP SCH ×2 (09:12→18:06)
--- NOTE | 2022-05-05 10:51 | Hospitalist Progress Note ---
Date of Service May 05, 2022 Assessment & Plan (1) UTI (urinary tract infection): Plan: E. coli ESBL growing. He is on ertapenem. Will need to follow-up recommendation further from infectious disease (2) Ambulatory dysfunction: Plan This a 76-year-old [facility] resident presents with febrile illness. 1. Febrile illness: Initially he had some shortness of breath and cough, chest pain, but chest ray was unremarkable and COVID test is negative and also currently his shortness of breath and chest pain improved. His UA is positive, possibly his febrile illness symptoms could be from the urinary tract infection. History of ESBL in the past. However recent cultures growing Proteus mirabilis and axitinib after. E. coli ESBL growing. He is on ertapenem. Will need to follow-up recommendation further from infectious disease 2. History of high blood pressure: Continue his home medication. 3. History of depression: Continue Zoloft. 4. Benign prostatic hypertrophy: Continue Flomax and finasteride. 5. Gastroesophageal reflux disease: Continue Protonix. 6. Parkinson disease: Continue his carbidopa/levodopa. 7. Deep vein thrombosis prophylaxis: Place him on Lovenox. DISPOSITION: Closely monitor in the [employer]. PT/OT prior to discharge. Social service to help with discharge planning. CODE STATUS: Level 1 full code as per my discussion with the patient. Admission and Anticipated Discharge Date Admission Date: May 03, 2022 Subjective Seen at bedside. States that he is feeling much better today. Has not had breakfast yet. No new complaints. E. coli ESBL growing. He is on ertapenem. Will need to follow-up recomm endation further from infectious disease Denies active chest pain shortness of breath nausea vomiting. Review of Systems Review of Systems: All systems reviewed and negative other than as described above in the history and physical Physical Exam Physical Exam: Constitutional:WD/WN, vitals as above Neck: trachea midline, no thyromegaly Respiratory: normal respiratory effort, lungs clear to auscultationAuscultation:no rhonchi and no wheezes Cardiovascular:RRR, no murmur, no edemaHeart Sounds:no murmur Gastrointestinal (Abdomen):normal bowel sounds, soft, nontender, no hepatosplenomegaly Musculoskeletal:no cyanosis or clubbing, Skin: no rashes, warm and dry Neurologic: AA+Ox3, euthymic affect Results & Data Results & Data ([facility]) Vital Signs (Past 12 Hours) Vital Signs Temp Pulse Pulse Pulse Resp BP BP 05/05/22 08:03 58 L 05/05/22 07:58 37.0 C 60 18 147/83 H 05/05/22 05:58 60 152/81 H 05/05/22 04:00 36.6 C 05/05/22 03:44 36.6 C 60 20 176/84 H 05/04/22 23:15 37.2 C 64 18 155/90 H Pulse Ox O2 Del Method 05/05/22 08:03 05/05/22 07:58 94 Room Air 05/05/22 05:58 05/05/22 04:00 05/05/22 03:44 94 Room Air 05/04/22 23:15 95 Room Air
[2022-05-05] MEDS: TAMSULOSIN HCL 0.4 MG CAP PO SCH (20:07)
[2022-05-06] MEDS: PANTOprazole 40 MG TAB PO SCH (05:55)
[2022-05-06] MEDS: ERTAPENEM SODIUM 1,000 MG in SYRINGE 0 ML IV SCH (06:00)
[2022-05-06] MEDS: hydrALAZINE 10 MG TAB PO PRN ×2 (06:38→10:25)
[2022-05-06] MEDS: DULoxetine HCL 20 MG CAP PO SCH ×2 (10:25→22:13)
[2022-05-06] MEDS: CARBIDOPA/LEVODOPA 25/100MG TAB PO SCH ×3 (10:26→22:12)
[2022-05-06] MEDS: BRIMONIDINE TARTRATE 0.2% 5ML OPB SCH ×2 (10:26→20:18)
[2022-05-06] MEDS: DORZOLAMIDE/TIMOLOL 22.3/6.8MG/ML 10 ML BTL OPB SCH ×2 (10:27→20:10)
[2022-05-06] MEDS: ARTIFICIAL TEARS OP SCH ×4 (10:28→20:12)
[2022-05-06] MEDS: ENOXAPARIN INJ 40 MG/0.4 ML SYR SQ SCH (11:39)
[2022-05-06] MEDS: CEROVITE ADV FORMULA TAB PO SCH (11:40)
[2022-05-06] MEDS: DOCUSATE SODIUM 100 MG CAP PO SCH ×2 (11:40→22:12)
[2022-05-06] MEDS: lisinopril 2.5 MG TAB PO SCH (11:40)
[2022-05-06] MEDS: LORATADINE 10 MG TAB PO SCH (11:41)
[2022-05-06] MEDS: FINASTERIDE 5 MG TAB PO SCH (11:42)
[2022-05-06] MEDS: SERTRALINE HCL 100 MG TABLET PO SCH (11:42)
[2022-05-06] MEDS: MICONAZOLE NITRATE POWDER 43 GM TOP SCH ×2 (11:44→20:07)
--- NOTE | 2022-05-06 15:58 | Hospitalist Progress Note ---
Date of Service May 06, 2022 Assessment & Plan (1) UTI (urinary tract infection): (2) Ambulatory dysfunction: Plan 76-year-old [facility] resident presents with febrile illness. Found to have ESBL E coli UTI ESBL E coli UTI- Continue ertapenem D4/7. HTN- continue lisinopril Depression- continue zoloft Parkinsons disease- continue sinemet BPH- continue flomax and proscar DVT ppx- sc lovenox Admission and Anticipated Discharge Date Admission Date: May 03, 2022 Subjective Feels okay. Denies any ongoing issues. No fever, chills, N/V, chest pain, SOB. Physical Exam Physical Exam: General: Lying comfortably in bed, not in acute distress, on room air HEENT: PERRL, MMM Chest: Clear breath sounds bilaterally, no wheezes or crackles CVS: Regular rate and rhythm, normal heart sounds, no murmur Abdomen: Soft, non tender, not distended, normal bowel sounds Neuro: Awake, alert, conversing ok, moving extremities Extremities: No edema Results & Data Results & Data ([facility]) Vital Signs (Past 12 Hours) Vital Signs Temp Pulse Pulse Resp BP Pulse Ox O2 Del Method 05/06/22 15:00 73 05/06/22 11:21 37.1 C 76 16 132/80 92 Room Air 05/06/22 08:00 Room Air 05/06/22 07:19 37 C 70 20 158/84 H 93 Room Air 05/06/22 07:06 68
[2022-05-06] MEDS ORDERED: SULFAMETHOXAZOLE/TRIMETHOPRIM DS 800/160MG TAB PO SCH (21:00)
[2022-05-06] MEDS: TAMSULOSIN HCL 0.4 MG CAP PO SCH (22:13)
[2022-05-07] MEDS: ERTAPENEM SODIUM 1,000 MG in SYRINGE 0 ML IV SCH (06:37)
[2022-05-07 07:04] LABS: Hematocrit (blood only) 37.2 % (40.1-51.0); Hemoglobin 12.2 g/dl (14.0-18.0); Mean Corpuscular Hemoglobin 29.5 pg (25.0-34.0); Mean Corpuscular Hgb Conc 32.8 g/dL (32.0-36.0); Mean Corpuscular Volume 89.9 fL (80.0-100.0); Mean Platelet Volume 9.7 fL (9.4-12.4); Platelet Count 218 K/uL (130-400); RDW Coefficient of Variation 13.5 % (11.5-14.5); RDW Standard Deviation 44.4 fL (36.4-46.3); Red Blood Count 4.14 M/uL (4.63-6.08); White Blood Count 8.64 K/ul (4.8-10.8)
[2022-05-07 07:31] LABS: BUN Creatinine Ratio 21.6 (10-20); Calcium 8.8 mg/dl (8.5-10.1); Creatinine Clr Calc Pharmacy 100.3 ml/min; Est GFR (African American) 104.6 ml/min; Est GFR (Non-African American) 90.2 ml/min; Magnesium 2.1 mg/dl (1.7-2.4); Phosphorus 4.1 mg/dl (2.5-4.9); Potassium 3.9 mmol/L (3.5-5.1)
[2022-05-07] MEDS: PANTOprazole 40 MG TAB PO SCH (08:23)
[2022-05-07] MEDS: DULoxetine HCL 20 MG CAP PO SCH ×2 (08:24→21:38)
[2022-05-07] MEDS: CARBIDOPA/LEVODOPA 25/100MG TAB PO SCH ×3 (08:25→21:33)
[2022-05-07] MEDS: SERTRALINE HCL 100 MG TABLET PO SCH (08:26)
[2022-05-07] MEDS: lisinopril 2.5 MG TAB PO SCH (08:27)
[2022-05-07] MEDS: DOCUSATE SODIUM 100 MG CAP PO SCH ×2 (08:27→20:58)
[2022-05-07] MEDS: CEROVITE ADV FORMULA TAB PO SCH (08:28)
[2022-05-07] MEDS: FINASTERIDE 5 MG TAB PO SCH (08:29)
[2022-05-07] MEDS: LORATADINE 10 MG TAB PO SCH (08:31)
[2022-05-07] MEDS: BRIMONIDINE TARTRATE 0.2% 5ML OPB SCH ×2 (08:32→21:36)
[2022-05-07] MEDS: ARTIFICIAL TEARS OP SCH ×4 (08:36→21:35)
[2022-05-07] MEDS: ENOXAPARIN INJ 40 MG/0.4 ML SYR SQ SCH (08:38)
[2022-05-07] MEDS: DORZOLAMIDE/TIMOLOL 22.3/6.8MG/ML 10 ML BTL OPB SCH ×2 (08:40→21:34)
[2022-05-07] MEDS: MICONAZOLE NITRATE POWDER 43 GM TOP SCH ×2 (13:15→18:26)
--- NOTE | 2022-05-07 16:42 | Hospitalist Progress Note ---
Date of Service May 07, 2022 Assessment & Plan (1) UTI (urinary tract infection): (2) Ambulatory dysfunction: Plan 76-year-old [facility] resident presents with febrile illness. Found to have ESBL E coli UTI ESBL E coli UTI- Continue ertapenem D5/7. No evidence of pyelo on exam. Afebrile, hemodynamically stable. HTN- hold lisinopril as BP soft Depression- continue zoloft Parkinsons disease- continue sinemet BPH- continue flomax and proscar DVT ppx- sc lovenox Dispo- D/c telemetry. Pending completion of iv ertapenem. Per CM, he will need to complete the course of iv ertapenem here as only 2 more doses remaining before he goes back to his [facility]. PT/OT consulted. Admission and Anticipated Discharge Date Admission Date: May 03, 2022 Subjective Feels fine. Denies any issues. No fever, chills, N/V, flank pain, abd pain. Feels ready to go back. Physical Exam Physical Exam: General: Sitting comfortably in bed, not in acute distress, on room air HEENT: PERRL, MMM Chest: Clear breath sounds bilaterally, no wheezes or crackles CVS: Regular rate and rhythm, normal heart sounds, no murmur Abdomen: Soft, non tender, not distended, normal bowel sounds Neuro: Awake, alert, conversing ok Extremities: No edema Results & Data Results & Data ([facility]) Vital Signs (Past 12 Hours) Vital Signs Temp Pulse Resp BP BP Pulse Ox O2 Del Method 05/07/22 15:32 36.7 C 75 18 96/61 L 92 Room Air 05/07/22 10:50 36.4 C L 72 18 94/61 L 91 Room Air 05/07/22 08:03 36.9 C 59 L 18 131/69 92 Room Air Laboratory Results Short CBC 05/07/22 Range/Units 06:33 WBC 8.64 (4.8-10.8) K/ul Hgb 12.2 L (14.0-18.0) g/dl Hct 37.2 L (40.1-51.0) % Plt Count 218 (130-400) K/uL BMP 05/07/22 06:33 Sodium 137 Potassium 3.9 Chloride 102 Carbon Dioxide 30 BUN 16 Creatinine 0.74 Glucose 93 Calcium 8.8 Medications Administered Current Inpatient Medications Acetaminophen (Acetaminophen 325 Mg Tab) 650 mg PO Q4H PRN PRN Reason: Pain or Fever Stop: 06/02/22 02:44 Albuterol (Albuterol Hfa 8 Gm Inhaler) 2 puffs INH Q4H PRN PRN Reason: shortness of breath or wheezin Stop: 06/02/22 02:44 Artificial Tears (Artificial Tears) 1 drops OP QID [facility] Stop: 06/02/22 08:59 Last Admin: 05/07/22 13:16 Dose: 1 drops Brimonidine Tartrate (Brimonidine Tartrate 0.2% 5ml) 1 drops OPB Q12 [facility] Stop: 06/02/22 08:59 Last Admin: 05/07/22 08:32 Dose: 1 drops Carbidopa/Levodopa (Carbidopa/Levodopa 25/100mg Tab) 1 tab PO TID@0800,1500,1999 [facility] Stop: 06/02/22 07:59 Last Admin: 05/07/22 15:34 Dose: 1 tab Docusate Sodium (Docusate Sodium 100 Mg Cap) 100 mg PO BID [facility] Stop: 06/02/22 08:59 Last Admin: 05/07/22 08:27 Dose: 100 mg Dorzolamide/Timolol (Dorzolamide/Timolol 22.3/6.8mg/Ml 10 Ml Btl) 1 drops OPB BID@0800,1999 [facility] Stop: 06/02/22 07:59 Last Admin: 05/07/22 08:40 Dose: 1 drops Duloxetine HCl (Duloxetine Hcl 20 Mg Cap) 20 mg PO BID [facility] Stop: 06/02/22 08:59 Last Admin: 05/07/22 08:24 Dose: 20 mg Enoxaparin Sodium (Enoxaparin Inj 40 Mg/0.4 Ml Syr) 40 mg SQ Q24H [facility] Stop: 06/02/22 08:59 Last Admin: 05/07/22 08:38 Dose: 40 mg Finasteride (Finasteride 5 Mg Tab) 5 mg PO QAM [facility] Stop: 06/02/22 08:59 Last Admin: 05/07/22 08:29 Dose: 5 mg Hydralazine HCl (Hydralazine 10 Mg Tab) 10 mg PO Q6 PRN PRN Reason: SBP > 150 Stop: 06/02/22 11:59 Last Admin: 05/06/22 10:25 Dose: 10 mg Ertapenem 1,000 mg/ Syringe 10 mls @ 2 mls/min IV Q24H [facility]; Protocol Stop: 05/12/22 06:04 Last Admin: 05/07/22 06:37 Dose: 2 mls/min Lisinopril (Lisinopril 2.5 Mg Tab) 2.5 mg PO DAILY [facility] Stop: 06/02/22 08:59 Last Admin: 05/07/22 08:27 Dose: 2.5 mg Loratadine (Loratadine 10 Mg Tab) 10 mg PO QAM [facility] Stop: 06/02/22 08:59 Last Admin: 05/07/22 08:31 Dose: 10 mg Miconazole Nitrate (Miconazole Nitrate Powder 43 Gm) 1 appln TOP BID@1000,1900 [facility] Stop: 06/02/22 09:59 Last Admin: 05/07/22 13:15 Dose: 1 appln Multivitamins/Minerals (Cerovite Adv Formula Tab) 1 tab PO DAILY [facility] Stop: 06/02/22 08:59 Last Admin: 05/07/22 08:28 Dose: 1 tab Nitroglycerin (Nitroglycerin Sl 0.4 Mg/Tab Tab) 0.4 mg SL UD PRN PRN Reason: Chest Pain Stop: 06/02/22 02:44 Oxycodone HCl (Oxycodone Hcl Ir 5 Mg Tab (Immediate Release)) 5 mg PO Q6H PRN PRN Reason: Pain Stop: 05/18/22 20:33 Last Admin: 05/05/22 07:28 Dose: 5 mg Pantoprazole Sodium (Pantoprazole 40 Mg Tab) 40 mg PO DAILYBB [facility] Stop: 06/02/22 06:29 Last Admin: 05/07/22 08:23 Dose: 40 mg Polyethylene Glycol (Polyethylene (Miralax) 17 Gm Pack) 17 gm PO DAILY PRN PRN Reason: Constipation Stop: 06/02/22 02:44 Sertraline HCl (Sertraline Hcl 100 Mg Tablet) 100 mg PO QAM [facility] Stop: 06/02/22 08:59 Last Admin: 05/07/22 08:26 Dose: 100 mg Tamsulosin HCl (Tamsulosin Hcl 0.4 Mg Cap) 0.4 mg PO HS [facility] Stop: 06/02/22 20:59 Last Admin: 05/06/22 22:13 Dose: 0.4 mg
[2022-05-07] MEDS: TAMSULOSIN HCL 0.4 MG CAP PO SCH (21:38)
[2022-05-08] MEDS: ERTAPENEM SODIUM 1,000 MG in SYRINGE 0 ML IV SCH (05:26)
[2022-05-08] MEDS: PANTOprazole 40 MG TAB PO SCH (05:30)
[2022-05-08] MEDS: CARBIDOPA/LEVODOPA 25/100MG TAB PO SCH ×3 (08:56→21:41)
[2022-05-08] MEDS: DORZOLAMIDE/TIMOLOL 22.3/6.8MG/ML 10 ML BTL OPB SCH ×2 (08:56→21:42)
[2022-05-08] MEDS: FINASTERIDE 5 MG TAB PO SCH (08:57)
[2022-05-08] MEDS: BRIMONIDINE TARTRATE 0.2% 5ML OPB SCH ×2 (08:57→21:43)
[2022-05-08] MEDS: ARTIFICIAL TEARS OP SCH ×4 (08:57→21:43)
[2022-05-08] MEDS: ENOXAPARIN INJ 40 MG/0.4 ML SYR SQ SCH (08:58)
[2022-05-08] MEDS: LORATADINE 10 MG TAB PO SCH (08:59)
[2022-05-08] MEDS: CEROVITE ADV FORMULA TAB PO SCH (08:59)
[2022-05-08] MEDS: SERTRALINE HCL 100 MG TABLET PO SCH (08:59)
[2022-05-08] MEDS: DOCUSATE SODIUM 100 MG CAP PO SCH ×2 (09:08→21:45)
[2022-05-08] MEDS: DULoxetine HCL 20 MG CAP PO SCH ×2 (09:09→21:44)
[2022-05-08] MEDS: MICONAZOLE NITRATE POWDER 43 GM TOP SCH ×2 (09:46→18:14)
--- NOTE | 2022-05-08 10:59 | Hospitalist Progress Note ---
Date of Service May 08, 2022 Assessment & Plan (1) UTI (urinary tract infection): (2) Ambulatory dysfunction: Plan 76-year-old [facility] resident presents with febrile illness. Found to have ESBL E coli UTI ESBL E coli UTI- Continue ertapenem D6/7. No evidence of pyelo on exam. Afebrile, hemodynamically stable. HTN- hold lisinopril as BP soft Depression- continue zoloft Parkinsons disease- continue sinemet BPH- continue flomax and proscar DVT ppx- sc lovenox Dispo- D/c tomorrow back to [facility] after completion of IV ertapenem. PT eval pending. Admission and Anticipated Discharge Date Admission Date: May 03, 2022 Subjective He feels okay. complains of itching in the head for which he states he takes hydrocodone. Denies any other issues. No fever, chills, N/V, CP, SOB, abd pain, flank pain. Physical Exam Physical Exam: General: Sitting comfortably in bed, not in acute distress, on room air HEENT: PERRL, MMM Chest: Clear breath sounds bilaterally, no wheezes or crackles CVS: Regular rate and rhythm, normal heart sounds, no murmur Abdomen: Soft, non tender, not distended, normal bowel sounds Neuro: Awake, alert, conversing ok Extremities: No edema Results & Data Results & Data ([facility]) Vital Signs (Past 12 Hours) Vital Signs Temp Pulse Resp BP Pulse Ox O2 Del Method 05/07/22 23:46 36.7 C 62 18 105/64 92 Room Air Medications Administered Current Inpatient Medications Acetaminophen (Acetaminophen 325 Mg Tab) 650 mg PO Q4H PRN PRN Reason: Pain or Fever Stop: 06/02/22 02:44 Albuterol (Albuterol Hfa 8 Gm Inhaler) 2 puffs INH Q4H PRN PRN Reason: shortness of breath or wheezin Stop: 06/02/22 02:44 Artificial Tears (Artificial Tears) 1 drops OP QID [facility] Stop: 06/02/22 08:59 Last Admin: 05/08/22 08:57 Dose: 1 drops Brimonidine Tartrate (Brimonidine Tartrate 0.2% 5ml) 1 drops OPB Q12 [facility] Stop: 06/02/22 08:59 Last Admin: 05/08/22 08:57 Dose: 1 drops Carbidopa/Levodopa (Carbidopa/Levodopa 25/100mg Tab) 1 tab PO TID@0800,1500,2000 [facility] Stop: 06/02/22 07:59 Last Admin: 05/08/22 08:56 Dose: 1 tab Docusate Sodium (Docusate Sodium 100 Mg Cap) 100 mg PO BID LISA Stop: 06/02/22 08:59 Last Admin: 05/08/22 09:08 Dose: 100 mg Dorzolamide/Timolol (Dorzolamide/Timolol 22.3/6.8mg/Ml 10 Ml Btl) 1 drops OPB BID@0800,1999 LISA Stop: 06/02/22 07:59 Last Admin: 05/08/22 08:56 Dose: 1 drops Duloxetine HCl (Duloxetine Hcl 20 Mg Cap) 20 mg PO BID LISA Stop: 06/02/22 08:59 Last Admin: 05/08/22 09:09 Dose: 20 mg Enoxaparin Sodium (Enoxaparin Inj 40 Mg/0.4 Ml Syr) 40 mg SQ Q24H LISA Stop: 06/02/22 08:59 Last Admin: 05/08/22 08:58 Dose: 40 mg Finasteride (Finasteride 5 Mg Tab) 5 mg PO QAM LISA Stop: 06/02/22 08:59 Last Admin: 05/08/22 08:57 Dose: 5 mg Ertapenem 1,000 mg/ Syringe 10 mls @ 2 mls/min IV Q24H [facility]; Protocol Stop: 05/12/22 06:04 Last Admin: 05/08/22 05:26 Dose: 2 mls/min Lisinopril (Lisinopril 2.5 Mg Tab) 2.5 mg PO DAILY LISA Stop: 06/02/22 08:59 Last Admin: 05/07/22 08:27 Dose: 2.5 mg Loratadine (Loratadine 10 Mg Tab) 10 mg PO QAM LISA Stop: 06/02/22 08:59 Last Admin: 05/08/22 08:59 Dose: 10 mg Miconazole Nitrate (Miconazole Nitrate Powder 43 Gm) 1 appln TOP BID@1000,1900 LISA Stop: 06/02/22 09:59 Last Admin: 05/08/22 09:46 Dose: 1 appln Multivitamins/Minerals (Cerovite Adv Formula Tab) 1 tab PO DAILY LISA Stop: 06/02/22 08:59 Last Admin: 05/08/22 08:59 Dose: 1 tab Nitroglycerin (Nitroglycerin Sl 0.4 Mg/Tab Tab) 0.4 mg SL UD PRN PRN Reason: Chest Pain Stop: 06/02/22 02:44 Oxycodone HCl (Oxycodone Hcl Ir 5 Mg Tab (Immediate Release)) 5 mg PO Q6H PRN PRN Reason: Pain Stop: 05/18/22 20:33 Last Admin: 05/05/22 07:28 Dose: 5 mg Pantoprazole Sodium (Pantoprazole 40 Mg Tab) 40 mg PO DAILYBB [facility] Stop: 06/02/22 06:29 Last Admin: 05/08/22 05:30 Dose: 40 mg Polyethylene Glycol (Polyethylene (Miralax) 17 Gm Pack) 17 gm PO DAILY PRN PRN Reason: Constipation Stop: 06/02/22 02:44 Sertraline HCl (Sertraline Hcl 100 Mg Tablet) 100 mg PO QAM LISA Stop: 06/02/22 08:59 Last Admin: 05/08/22 08:59 Dose: 100 mg Tamsulosin HCl (Tamsulosin Hcl 0.4 Mg Cap) 0.4 mg PO HS [facility] Stop: 06/02/22 20:59 Last Admin: 05/07/22 21:38 Dose: 0.4 mg
[2022-05-08] MEDS: TAMSULOSIN HCL 0.4 MG CAP PO SCH (21:46)
[2022-05-09] MEDS: ERTAPENEM SODIUM 1,000 MG in SYRINGE 0 ML IV SCH (05:32)
[2022-05-09] MEDS: PANTOprazole 40 MG TAB PO SCH (05:33)
[2022-05-09] MEDS: DORZOLAMIDE/TIMOLOL 22.3/6.8MG/ML 10 ML BTL OPB SCH (09:00)
[2022-05-09] MEDS: CARBIDOPA/LEVODOPA 25/100MG TAB PO SCH ×2 (09:00→14:33)
[2022-05-09] MEDS: FINASTERIDE 5 MG TAB PO SCH (09:01)
[2022-05-09] MEDS: DULoxetine HCL 20 MG CAP PO SCH (09:01)
[2022-05-09] MEDS: ENOXAPARIN INJ 40 MG/0.4 ML SYR SQ SCH (09:01)
[2022-05-09] MEDS: LORATADINE 10 MG TAB PO SCH (09:01)
[2022-05-09] MEDS: CEROVITE ADV FORMULA TAB PO SCH (09:02)
[2022-05-09] MEDS: SERTRALINE HCL 100 MG TABLET PO SCH (09:02)
[2022-05-09] MEDS: ARTIFICIAL TEARS OP SCH ×2 (09:02→12:36)
[2022-05-09] MEDS: BRIMONIDINE TARTRATE 0.2% 5ML OPB SCH (09:02)
[2022-05-09] MEDS: MICONAZOLE NITRATE POWDER 43 GM TOP SCH (09:03)
[2022-05-09] MEDS: DOCUSATE SODIUM 100 MG CAP PO SCH (09:03)
--- NOTE | 2022-05-09 14:09 | Discharge Summary ---
Date of Service May 09, 2022 Admission HPI Per Admitting Provider This is a 76-year-old male with past medical history significant for Parkinson disease, hypertension, chronic anemia, history of right hip surgery, history of ESBL UTI, history of frequent recurrent UTIs, who is currently living at [facility], presents with febrile illness. The patient was sent here because of fever. The patient also had some cough, some chest congestion and had some shortness of breath and chest pain initially when he came in, but they are all resolved. Currently, resting comfortably. The patient says he can ambulate with a walker, he is speaking in low voices. Says he has to cut the meat into pieces for him to swallow. Denies any headache currently. Says his vision is not that great. Denies any runny nose. Currently, no chest pain or shortness of breath. No nausea, no abdominal pain. Tried to call [facility], not able to reach them. Admission Exam Per Admitting Provider GENERAL: The patient is alert and awake, not in acute distress. VITAL SIGNS: Temperature 38, pulse 75, respiratory rate 20, blood pressure 147/82, oxygen 97% on room air. HEENT: Pupils equal, round and reactive to light. Oral mucosa dry. NECK: No JVD, no neck masses. CARDIOVASCULAR: S1 and S2 heard. Regular rate and rhythm. No murmur, no gallop. RESPIRATORY SYSTEM: Normal AP diameter. No accessory muscle use. No wheezing, no crackles. ABDOMEN: Soft, bowel sounds present, nontender, no distention. CENTRAL NERVOUS SYSTEM: Alert and oriented to name, place. Could able to tell this is April and could tell the year. No obvious facial droop. Speech, he is speaking in low voices. Able to move his extremities. EXTREMITIES: No edema, no erythema. Principal Diagnosis ESBL E coli UTI, Parkinsonism Discharge Exam General: Sitting comfortably in bed, not in acute distress, on room air HEENT: PERRL, MMM Chest: Clear breath sounds bilaterally, no wheezes or crackles CVS: Regular rate and rhythm, normal heart sounds, no murmur Abdomen: Soft, non tender, not distended, normal bowel sounds Neuro: Awake, alert, conversing ok Extremities: No edema Discharge Data Allergies Allergy/AdvReac Type Severity Reaction Status Date / Time Iodinated Contrast Media Allergy Intermediate IV OR Verified 11/01/21 01:16 ORAL--SKIN FLUSHES Consultations 05/02/22 23:13 ED Decision to Admit Stat Ordered Studies 05/02/22 19:20 CT Abd and Pelvis [CT abd pelvis wo con] Stat Laboratory Results WBC 8.64 K/ul (4.8-10.8) 05/07/22 06:33 RBC 4.14 M/uL (4.63-6.08) L 05/07/22 06:33 Hgb 12.2 g/dl (14.0-18.0) L 05/07/22 06:33 Hct 37.2 % (40.1-51.0) L 05/07/22 06:33 MCV 89.9 fL (80.0-100.0) 05/07/22 06:33 MCH 29.5 pg (25.0-34.0) 05/07/22 06:33 MCHC 32.8 g/dL (32.0-36.0) 05/07/22 06:33 RDW Std Deviation 44.4 fL (36.4-46.3) 05/07/22 06:33 RDW Coeff of David 13.5 % (11.5-14.5) 05/07/22 06:33 Plt Count 218 K/uL (130-400) 05/07/22 06:33 MPV 9.7 fL (9.4-12.4) 05/07/22 06:33 Immature Gran % (Auto) 0.4 % 05/04/22 07:26 Neut % (Auto) 68.1 % 05/04/22 07:26 Lymph % (Auto) 18.1 % 05/04/22 07:26 Lares % (Auto) 12.2 % 05/04/22 07:26 Eos % (Auto) 0.8 % 05/04/22 07:26 Baso % (Auto) 0.4 % 05/04/22 07:26 Neut # (Auto) 3.58 K/uL (1.4-6.5) 05/04/22 07:26 Lymph # (Auto) 0.95 K/uL (1.2-3.4) L 05/04/22 07:26 Lares # (Auto) 0.64 K/uL (0.24-0.82) 05/04/22 07:26 Eos # (Auto) 0.04 K/uL (0-0.50) 05/04/22 07:26 Baso # (Auto) 0.02 K/uL (0-0.2) 05/04/22 07:26 Immature Gran # (Auto) 0.02 K/uL (0.00-0.02) 05/04/22 07:26 Sodium 137 mmol/L (136-145) 05/07/22 06:33 Potassium 3.9 mmol/L (3.5-5.1) 05/07/22 06:33 Chloride 102 mmol/L (98-107) 05/07/22 06:33 Carbon Dioxide 30 mmol/L (21-32) 05/07/22 06:33 Anion Gap 5 (3-11) 05/07/22 06:33 BUN 16 mg/dl (6-23) 05/07/22 06:33 Creatinine 0.74 mg/dl (0.6-1.4) 05/07/22 06:33 Est Cr Clr Drug Dosing 100.3 ml/min 05/07/22 06:33 Est GFR ( Amer) 104.6 ml/min 05/07/22 06:33 Est GFR (Non-Af Amer) 90.2 ml/min 05/07/22 06:33 BUN/Creatinine Ratio 21.6 (10-20) H 05/07/22 06:33 Glucose 93 mg/dl (70-99(Fasting)) 05/07/22 06:33 Lactate 0.6 mmol/L (0.4-2.0) 05/02/22 19: Calcium 8.8 mg/dl (8.5-10.1) 05/07/22 06:33 Phosphorus 4.1 mg/dl (2.5-4.9) 05/07/22 06:33 Magnesium 2.1 mg/dl (1.7-2.4) 05/07/22 06:33 Total Bilirubin 0.7 mg/dl (0.2-1.0) 05/02/22 19:27 AST 9 U/L (13-39) L 05/02/22 19:27 ALT < 3 U/L (7-52) L 05/02/22 19:27 Alkaline Phosphatase 99 U/L (34-104) 05/02/22 19:27 Troponin I High Sens 4.7 pg/ml (0-20) 05/02/22 19:27 Total Protein 6.9 gm/dl (6.0-8.3) 05/02/22 19: Albumin 3.8 gm/dl (3.4-5.0) 05/02/22 19: Globulin 3.1 gm/dl (2.5-4.0) 05/02/22 19: Albumin/Globulin Ratio 1.2 (0.9-2) 05/02/22 19: TSH 1.840 uIu/ml (0.300-4.500) 05/02/22 19: Urine Color Yellow 05/02/22 22:17 Urine Appearance Cloudy (Clear) A 05/02/22 22:17 Urine pH 5.5 (4.5-7.5) 05/02/22 22:17 Ur Specific [place] 1.019 (1.000-1.030) 05/02/22 22:17 Urine Protein 1+ (Negative) H 05/02/22 22:17 Urine Glucose (UA) Negative (Negative) 05/02/22 22:17 Urine Ketones Trace (Negative) H 05/02/22 22:17 Urine Blood Trace (Negative) H 05/02/22 22:17 Urine Nitrite Positive (Negative) A 05/02/22 22:17 Urine Bilirubin Negative (Negative) 05/02/22 22:17 Urine Urobilinogen Negative (Negative) 05/02/22 22:17 Ur Leukocyte Esterase 2+ (Negative) H 05/02/22 22:17 Urine WBC (Auto) >30 /hpf (0-5) H 05/02/22 22:17 Urine RBC (Auto) 0-4 /hpf (0-4) 05/02/22 22:17 U Hyaline Cast (Auto) 1-5 /lpf (0-5) 05/02/22 22:17 U Epithel Cells (Auto) 10-20 /lpf (0-5) H 05/02/22 22:17 Urine Bacteria (Auto) 4+ (Negative) H 05/02/22 22:17 Nasal Screen MRSA (PCR) Negative (Negative) 05/03/22 05:46 SARS-CoV-2 (PCR) NEGATIVE (Negative) 05/02/22 19:46 Influenza Type A (PCR) Negative (Neg) 05/02/22 19:46 Influenza Type B (PCR) Negative (Neg) 05/02/22 19:46 RSV (RT-PCR) Negative (Neg) 05/02/22 19:46 Impressions Abdomen/Pelvis CT 05/02/22 19:20 CT OF THE ABDOMEN AND PELVIS WITHOUT CONTRAST CLINICAL HISTORY: fever, lower abdominal pain, cough COMPARISON STUDY: CT of the abdomen and pelvis April 15, 2021. TECHNIQUE: Axial images of the abdomen and pelvis were obtained without IV contrast. Images were reviewed in the axial, sagittal, and coronal planes. Automated exposure control was utilized for the study. A dose lowering technique was utilized adhering to the principles of ALARA. FINDINGS: Subpleural opacities within the lower lungs reflect atelectasis. No pneumatosis, free air or portal venous gas is present. Evaluation of the abdomen and pelvis is suboptimal on this unenhanced exam. The liver, spleen, adrenal glands, kidneys and pancreas are unremarkable. There is no hydronephrosis. There is no biliary or pancreatic ductal dilatation. No peripancreatic or pericholecystic stranding is present. There are calcific granulomas within the spleen. Caliber of the abdominal aorta is normal. There is moderate plaque. Images of the pelvis are degraded by streak artifact from a left hip arthroplasty and a right femoral internal fixation. Moderate amount of stool within the rectum is present. Mild gaseous distention of the large bowel is noted without evidence for a bowel obstruction. The appendix is normal. There is no ascites. There is no lymphadenopathy. Old right pubic ring fractures are present. Healed right femoral fractures are noted status post internal fixation. There are postoperative findings within the spine. IMPRESSION: 1. No acute process within the abdomen or pelvis on unenhanced exam. 2. Moderate amount stool within the rectum. Mild gaseous distention of the colon without evidence for a bowel obstruction. ACT 112: Negative or not required by law. Electronically signed by: Adán Ramirez M.D. 05/02/2022 8:25 PM Chest X-Ray 05/02/22 19:20 XR chest 1V portable HISTORY: 76 years-old Male weakness, cough acute weakness with cough COMPARISON: Chest radiograph 11/01/2021 TECHNIQUE: Portable AP view of the chest FINDINGS: Cardiac silhouette is enlarged. The patient is rotated towards the left. Atherosclerosis of the aorta. Mild chronic interstitial coarsening. No pneumothorax, large pleural effusion or overt pulmonary edema. Degenerative changes of the shoulders and spine. IMPRESSION: No acute process. ACT 112: Negative or not required by law. The above report was generated using voice recognition software. It may contain grammatical, syntax or spelling errors. Electronically signed by: Valente Jung M.D. 05/03/2022 6:48 AM Hospital Course (1) UTI (urinary tract infection): (2) Ambulatory dysfunction: Plan 76-year-old [facility] resident presents with febrile illness. Found to have ESBL E coli UTI ESBL E coli UTI- S/p 7 days of ertapenem. No evidence of pyelo on exam. Afebrile, hemodynamically stable. Given his recurrent UTI, will give macrobid for 1 more week to which his E coli is sensitive to. HTN- Lisinopril was held inhouse and discontinued at discharge as BP was on lower side. Lisinopril was very low dose anyway 2.5 mg daily only. Depression- continue zoloft Parkinsons disease- continue sinemet BPH- continue flomax and proscar Stable for transfer back to [facility]. Denies any issues at discharge. Total Time Total Time Spent Total Time Spent (In Minutes): 32 Discharge Plan Discharge Items Patient Disposition: Home - Self-Care Reason For Visit: WEAKNESS Discharge Diagnosis: ESBL E coli UTI Activity: Resume your previous activity Non-emergency contact: Primary Care Provider Call non-emergency contact if: you have any medication questions, your symptoms worsen, your pain is concerning for you and you have a fever [facility] [Primary Care Provider] - Diet: Regular Addtl Attending Provider Instructions: Continue macrobid 1 tab twice daily for 1 more week starting tomorrow morning. Stop your lisinopril as your blood pressure has been running low here. consider resuming if blood pressure starts trending up. Continue other medications as prescribed. Pending Studies at Discharge: No Stand-Alone Forms: My [employer], Smoking Cessation Medications and DC Order Prescriptions: New nitrofurantoin monohyd/m-cryst [Macrobid] 100 mg capsule 100 mg PO BID 7 Days Qty: 14 0RF Rx Instructions: must administer with a meal/food Continued sertraline 100 mg tablet 100 mg PO QAM pantoprazole 40 mg Tablet,Delayed Release (Dr/Ec) 40 mg PO DAILYBB Rx Instructions: TAKE THIS MEDICATION ONCE DAILY BEFORE BREAKFAST finasteride 5 mg tablet 5 mg PO QAM acetaminophen [Tylenol] 325 mg Tablet 650 mg PO Q4H MDD 3 GR/24 HRS PRN (Reason: Pain) tamsulosin [Flomax] 0.4 mg Capsule 0.4 mg PO HS docusate sodium 100 mg Capsule 100 mg PO BID loratadine 10 mg Tablet 10 mg PO QAM carbidopa-levodopa 25-100 mg tablet 1 tab PO TID Rx Instructions: Daily at 0800, 1500, and 2000 dorzolamide-timolol 22.3-6.8 mg/mL drops 1 drp OPB BID Rx Instructions: Takes at 0800 and 2000 brimonidine 0.2 % drops 1 drp OPB Q12H duloxetine [Cymbalta] 20 mg capsule,delayed release(DR/EC) 20 mg PO BID Desenex 2 % Powder 1 applic TOPICAL BID Rx Instructions: use on afftected area twice a day for rash/irritation at 10am and 7pm hydrocortisone 2.5 % cream 1 applic TOPICAL BID PRN (Reason: irritation) Rx Instructions: apply to pink,scaly,itchy skin on face up to twice a day for irritaion PreserVision AREDS-2 250-90-40-1 mg Capsule 1 tab PO DAILY Artificial Tears (cmc) 1 % Drops 1 drp OPHTHALMIC (EYE) QID albuterol sulfate 90 mcg/actuation HFA aerosol inhaler 2 inh inhalation Q4H PRN (Reason: shortness of breath or wheezing) Qty: 8.5 0RF Discontinued ergocalciferol (vitamin D2) [Vitamin D2] 50,000 unit Capsule 50,000 unit PO WK Rx Instructions: TAKE THIS MEDICATION EVERY SATURDAY AT 0800 lisinopril 2.5 mg tablet 2.5 mg PO DAILY prednisone 10 mg tablet 10 mg PO .complex Qty: 31 0RF Rx Instructions: Prednisone 40 mg for 4 days, 30 mg for 3 days, 20 mg for 2 days and 10 mg for 2 days. Discharge Orders: Discharge Order (Routine); Ordered 05/09/22 Ordered By: Lavelle Chan Admission Data Admit Date/Time: 05/03/22 00:32 Attending Provider: Lavelle Chan Admit Provider: Jacob Iyer Primary Care Provider: STATE WILBER BAKER Other Providers: Jacob Iyer Other Interventions: Discharge Summary Assessment (RN) Last Done: 05/09/22 13:17
== END 2022-05-09 16:40 | disposition home or self-care (01) ==
LOC: ED 19:04 → INTOOBSV 05-03 00:32 → SUATTDRO 05-03 00:32 → 2N 05-03 00:32

== ENCOUNTER 2022-08-20 19:19 | Inpatient (IN) ==
--- NOTE | 2022-08-20 19:34 | Emergency Department Note ---
Impression & Plan Closed fracture of left pelvis, Inability to ambulate due to hip, Parkinson disease ED Provider Note NAME: NAV MCCANN AGE: 76 SEX: M : 1945 ARRIVES VIA: Ambulance INFORMANT: [Patient][, ] ED PROVIDER(S): [Yousuf Wilson MD] Chief Complaint: Fall, left hip pain HPI: Patient presents due to concern for fall and left hip pain. The patient does have a history of Parkinson's and does require a two-person assist and virtually only uses his wheelchair. The patient cannot walk unassisted. Patient did have a fall from his bed to the floor when he had tried to transition from the bed to his chair. Patient denies any head strike or LOC. The patient denies any head neck or chest pain. No upper extremity pain and no right lower extremity pain. Patient did not take anything for pain prior to arrival. Patient denies any nausea or vomiting. No numbness tingling or focal weakness. The patient does take his Sinemet for his Parkinson's. ROS: See HPI for pertinent positives and negatives. A total of 10 systems were reviewed and otherwise negative. Past medical history: See below Surgical history: See below Social history: See below Physical Exam: GENERAL: NAD, [wearing a mask,] non-toxic. Wearing glasses. EYE EXAM: Normal conjunctiva. PERRL, no anisocoria and EOM's grossly intact w/o pain. NECK: Supple, no nuchal rigidity, no adenopathy, non-tender. No signs of meningismus. FROM of the neck with good chin to chest and neck extension. No stridor. LUNGS: Clear to auscultation. Normal chest wall mechanics. HEART: NSR, no MRG. ABDOMEN: Abdomen soft, non-tender, normo-active bowel sounds, no masses, no rebound or guarding. BACK: No CVA TTP. SKIN: No rashes and no bruising. UPPER EXTREMITIES: Mild rigidity noted. LOWER EXTREMITIES: Pain to the left hip, no obvious leg length discrepancy or obvious deformity, neurovascular intact distally. NEURO EXAM: A&O x3, cranial nerves II-XII grossly intact, normal speech, moves all 4 extremities. Differential diagnoses: Fracture, dislocation, contusion, intra-abdominal, pneumothorax, intrathoracic, intracranial, neurologic, compartment syndrome, rhabdomyolysis, as well as other pathologies. Course: Patient was seen and evaluated the bedside. Full history physical exam was performed. Imaging Studies: See Below Cardiac monitoring: An order was placed for continuous cardiac monitoring. The monitor shows a rate of 77 with [] rhythm. MDM: Patient did present due to concern for fall from his bed to the floor. Initial x-rays were not conclusive of obvious fracture so a CT was performed of the left hip and pelvis. The patient does have a fracture of the left pelvis. Given that the patient may require additional pain control and monitoring I did speak with the on-call hospitalist group and the patient was admitted to the medicine service. Past Med/Surg History Medical History (Updated 08/22/22 @ 16:42 by Yousuf Wilson MD) Abdominal pain Alzheimer disease Anxiety Dementia Substance abuse UTI due to extended-spectrum beta lactamase (ESBL) producing Escherichia coli Surgical History History of total left hip arthroplasty Family History Other No pertinent family history in first degree relatives Social History Smoking Status: Former smoker Tobacco Type: Cigarettes Second Hand Exposure: No; Do You Dip or Chew Tobacco: No; Tobacco Cessation Education Requested by Patient: No Hx Alcohol Use: No Hx Substance Use: Yes Prescribed Medications: Marijuana Last Used Substance: Days (ago) Last Used Substance Other:: 2 weeks ago, "I ran out" Substance Use Type Other:: smokes canibis/ medical marijuana Preferred Language: Welsh Communication Ability: Effective Clinical Assessment Manager Required: No Beliefs That Will Affect Care: None marital status: Unknown Current Living Situation: [facility] Current Living Situation Comment: [facility] 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 Feels Safe at Home: Yes Safety Concerns: Feels Safe At This Time Assistive Devices: Walker and Wheelchair Allergies Allergies Allergy/AdvReac Type Severity Reaction Status Date / Time Iodinated Contrast Media Allergy Intermediate IV OR Verified 08/21/22 00:03 ORAL--SKIN FLUSHES Home Meds Home Medications Medication Instructions Recorded Confirmed carbidopa 25 mg-levodopa 100 mg 1 tab PO TID 07/08/18 08/20/22 tablet finasteride 5 mg tablet 5 mg PO QAM 06/26/19 08/20/22 pantoprazole 40 mg tablet,delayed 40 mg PO DAILYBB 06/26/19 08/21/22 release sertraline 100 mg tablet 100 mg PO QAM 06/26/19 08/20/22 dorzolamide 22.3 mg-timolol 6.8 1 drp OPB BID 01/23/20 08/20/22 mg/mL eye drops acetaminophen 325 mg tablet 650 mg PO Q4H PRN Pain 04/24/20 08/20/22 (Tylenol) docusate sodium 100 mg capsule 100 mg PO BID 04/24/20 08/20/22 loratadine 10 mg tablet 10 mg PO QAM 04/24/20 08/21/22 tamsulosin 0.4 mg capsule (Flomax) 0.4 mg PO HS 04/24/20 08/20/22 brimonidine 0.2 % eye drops 1 drp OPB Q12H 03/14/21 08/20/22 duloxetine 20 mg capsule,delayed 20 mg PO BID 03/14/21 08/20/22 release (Cymbalta) hydrocortisone 2.5 % topical cream 1 applic topical BID PRN irritation 04/15/21 08/20/22 carboxymethylcellulose sodium 1 % 1 drp ophthalmic (eye) DAILY 11/01/21 08/20/22 eye drops (Artificial Tears (carboxymethylcellulose)) vit C 250 mg-vit E 90 mg-zinc 40 1 tab PO BID 11/01/21 08/20/22 mg-copper 1 [id number] capsule (PreserVision AREDS-2) Results & Data (ED) Vital Signs Vital Signs - 24 hr 08/20/22 19:13 Temperature 36.6 C Temperature Source Oral Pulse Rate 72 Respiratory Rate 20 Respiratory Effort / Characteristics Non-Labored Spontaneous Respiratory Depth Normal Respiratory Pattern Regular Blood Pressure 179/96 H Blood Pressure Mean 123 Blood Pressure Position Lying Pulse Oximetry 94 Oxygen Delivery Method Room Air Sepsis Recent Fever Within 48 Hours No Sepsis New/Unexplained Change in Mental Status No Sepsis Action Taken by Nursing No Action Required Home Medications Current Medication List: was personally reviewed by me Laboratory Data Attestation: I reviewed the patient's lab results. Result diagrams: 08/22/22 06:52 08/22/22 06:52 Lab Results 08/20/22 08/20/22 08/20/22 Range/Units 22:50 22:50 22:50 WBC 12.48 H (4.8-10.8) K/ul RBC 4.78 (4.63-6.08) M/uL Hgb 14.4 (14.0-18.0) g/dl Hct 43.0 (40.1-51.0) % MCV 90.0 (80.0-100.0) fL MCH 30.1 (25.0-34.0) pg MCHC 33.5 (32.0-36.0) g/dL RDW Std Deviation 44.5 (36.4-46.3) fL RDW Coeff of David 13.6 (11.5-14.5) % Plt Count 213 (130-400) K/uL MPV 10.0 (9.4-12.4) fL Immature Gran % (Auto) 0.6 % Neut % (Auto) 83.1 % Lymph % (Auto) 10.2 % [place] % (Auto) 5.3 % Eos % (Auto) 0.5 % Baso % (Auto) 0.3 % Neut # (Auto) 10.38 H (1.4-6.5) K/uL Lymph # (Auto) 1.27 (1.2-3.4) K/uL [place] # (Auto) 0.66 (0.24-0.82) K/uL Eos # (Auto) 0.06 (0-0.50) K/uL Baso # (Auto) 0.04 (0-0.2) K/uL Immature Gran # (Auto) 0.07 H (0.00-0.02) K/uL Sodium 139 (136-145) mmol/L Potassium 4.2 (3.5-5.1) mmol/L Chloride 105 (98-107) mmol/L Carbon Dioxide 27 (21-32) mmol/L Anion Gap 7 (3-11) BUN 22 (6-23) mg/dl Creatinine 0.77 (0.6-1.4) mg/dl Est Cr Clr Drug Dosing 100.4 ml/min Est GFR ( Amer) 102.9 ml/min Est GFR (Non-Af Amer) 88.8 ml/min BUN/Creatinine Ratio 28.6 H (10-20) Glucose 92 (70-99(Fasting)) mg/dl Calcium 9.1 (8.5-10.1) mg/dl Total Bilirubin 0.5 (0.2-1.0) mg/dl AST 12 L (13-39) U/L ALT 7 (7-52) U/L Alkaline Phosphatase 115 H (34-104) U/L Total Creatine Kinase (30-223) U/L Total Protein 7.0 (6.0-8.3) gm/dl Albumin 4.1 (3.4-5.0) gm/dl Globulin 2.9 (2.5-4.0) gm/dl Albumin/Globulin Ratio 1.4 (0.9-2) SARS-CoV-2, RNA, NAAT NEGATIVE (NEGATIVE) 08/20/22 Range/Units 22:50 WBC (4.8-10.8) K/ul RBC (4.63-6.08) M/uL Hgb (14.0-18.0) g/dl Hct (40.1-51.0) % MCV (80.0-100.0) fL MCH (25.0-34.0) pg MCHC (32.0-36.0) g/dL RDW Std Deviation (36.4-46.3) fL RDW Coeff of David (11.5-14.5) % Plt Count (130-400) K/uL MPV (9.4-12.4) fL Immature Gran % (Auto) % Neut % (Auto) % Lymph % (Auto) % [place] % (Auto) % Eos % (Auto) % Baso % (Auto) % Neut # (Auto) (1.4-6.5) K/uL Lymph # (Auto) (1.2-3.4) K/uL [place] # (Auto) (0.24-0.82) K/uL Eos # (Auto) (0-0.50) K/uL Baso # (Auto) (0-0.2) K/uL Immature Gran # (Auto) (0.00-0.02) K/uL Sodium (136-145) mmol/L Potassium (3.5-5.1) mmol/L Chloride (98-107) mmol/L Carbon Dioxide (21-32) mmol/L Anion Gap (3-11) BUN (6-23) mg/dl Creatinine (0.6-1.4) mg/dl Est Cr Clr Drug Dosing ml/min Est GFR ( Amer) ml/min Est GFR (Non-Af Amer) ml/min BUN/Creatinine Ratio (10-20) Glucose (70-99(Fasting)) mg/dl Calcium (8.5-10.1) mg/dl Total Bilirubin (0.2-1.0) mg/dl AST (13-39) U/L ALT (7-52) U/L Alkaline Phosphatase (34-104) U/L Total Creatine Kinase 20 L (30-223) U/L Total Protein (6.0-8.3) gm/dl Albumin (3.4-5.0) gm/dl Globulin (2.5-4.0) gm/dl Albumin/Globulin Ratio (0.9-2) SARS-CoV-2, RNA, NAAT (NEGATIVE) Administered Medications Artificial Tears (Artificial Tears) 1 drops OP DAILY [facility] Stop: 09/20/22 08:59 Last Admin: 08/22/22 09:39 Dose: 1 drops Documented By: Admin: 08/21/22 10:04 Dose: 1 drops Documented By: BRODERICK Brimonidine Tartrate (Brimonidine Tartrate 0.2% 5ml) 1 drops OPB Q12 [facility] Stop: 09/20/22 08:59 Last Admin: 08/22/22 09:37 Dose: 1 drops Documented By: Admin: 08/21/22 20:31 Dose: 1 drops Documented By: Admin: 08/21/22 08:51 Dose: 1 drops Documented By: BRODERICK Carbidopa/Levodopa (Carbidopa/Levodopa 25/100mg Tab) 1 tab PO TI D@0800,1500,2000 [facility] Stop: 09/20/22 03:39 Last Admin: 08/22/22 14:29 Dose: 1 tab Documented By: Admin: 08/22/22 09:40 Dose: 1 tab Documented By: Admin: 08/21/22 20:30 Dose: 1 tab Documented By: Admin: 08/21/22 15:30 Dose: 1 tab Documented By: Admin: 08/21/22 05:54 Dose: 1 tab Documented By: Admin: 08/21/22 05:54 Dose: Not Given Documented By: DANA Docusate Sodium (Docusate Sodium 100 Mg Cap) 100 mg PO BID [facility] Stop: 09/20/22 08:59 Last Admin: 08/22/22 09:40 Dose: 100 mg Documented By: Admin: 08/21/22 20:30 Dose: 100 mg Documented By: Admin: 08/21/22 08:53 Dose: 100 mg Documented By: BRODERICK Dorzolamide/Timolol (Dorzolamide/Timolol 22.3/6.8mg/Ml 10 Ml Btl) 1 drops OPB BID@0800,1999 [facility] Stop: 09/20/22 03:39 Last Admin: 08/22/22 09:42 Dose: 1 drops Documented By: Admin: 08/21/22 20:30 Dose: 1 drops Documented By: Admin: 08/21/22 05:55 Dose: 1 drops Documented By: Admin: 08/21/22 05:54 Dose: Not Given Documented By: DANA Duloxetine HCl (Duloxetine Hcl 20 Mg Cap) 20 mg PO BID [facility] Stop: 09/20/22 03:39 Last Admin: 08/22/22 09:40 Dose: 20 mg Documented By: Admin: 08/21/22 20:30 Dose: 20 mg Documented By: Admin: 08/21/22 12:42 Dose: 20 mg Documented By: Admin: 08/21/22 05:54 Dose: Not Given Documented By: DANA Enoxaparin Sodium (Enoxaparin Inj 40 Mg/0.4 Ml Syr) 40 mg SQ QA [facility] Stop: 09/20/22 08:59 Last Admin: 08/22/22 09:36 Dose: 40 mg Documented By: Admin: 08/21/22 08:53 Dose: 40 mg Documented By: BRODERICK Finasteride (Finasteride 5 Mg Tab) 5 mg PO QAM [facility] Stop: 09/20/22 08:59 Last Admin: 08/22/22 09:41 Dose: 5 mg Documented By: Admin: 08/21/22 08:51 Dose: 5 mg Documented By: BRODERICK Ertapenem 1,000 mg/ Syringe 10 mls @ 2 mls/min IV Q24H [facility] Stop: 08/31/22 07:59 Last Admin: 08/22/22 09:35 Dose: 2 mls/min Documented By: Admin: 08/21/22 08:31 Dose: 2 mls/min Documented By: BRODERICK Ketorolac Tromethamine (Ketorolac Tromethamine 15 Mg/Ml Vial) 15 mg IV Q6H PRN PRN Reason: Pain Stop: 08/26/22 01:38 Last Admin: 08/22/22 04:37 Dose: 15 mg Documented By: DANA Loratadine (Loratadine 10 Mg Tab) 10 mg PO [facility] Stop: 09/20/22 08:59 Last Admin: 08/22/22 09:39 Dose: 10 mg Documented By: Admin: 08/21/22 08:52 Dose: 10 mg Documented By: BRODERICK Oxycodone HCl (Oxycodone Hcl Ir 5 Mg Tab (Immediate Release)) 5 mg PO Q4H PRN PRN Reason: Pain Stop: 09/04/22 03:39 Last Admin: 08/21/22 22:03 Dose: 5 mg Documented By: Admin: 08/21/22 05:55 Dose: 5 mg Documented By: DANA [facility]oprazole S[facility] ([facility] 40 Mg Tab) [facility]: 09/20/22 06:29 Last Admin: 08/22/22 05:40 Dose: 40 mg Documented By: Admin: 08/21/22 05:54 Dose: 40 mg Documented By: DANA Sertraline HCl (Sertraline Hcl 100 Mg Tablet) 100 mg PO [facility] Stop: 09/20/22 08:59 Last Admin: 08/22/22 09:41 Dose: 100 mg Documented By: Admin: 08/21/22 08:52 Dose: 100 mg Documented By: BRODERICK Tamsulosin HCl (Tamsulosin Hcl 0.4 Mg Cap) 0.4 mg PO [facility] Stop: 09/20/22 03:39 Last Admin: 08/21/22 05:54 Dose: 0.4 mg Documented By: Admin: 08/21/22 05:54 Dose: Not Given Documented By: DANA Discontinued Medications Sodium Chloride (Nss 1000ml) 1,000 mls @ 50 mls/hr IV .Q20H ONE Stop: 08/21/22 23:37 Last Infusion: 08/22/22 02:32 Dose: 0 mls/hr Documented By: Admin: 08/21/22 06:12 Dose: 50 mls/hr Documented By: DANA Miscellaneous (Preservision Areds-2 - Order Awaiting Action) 1 each N/A QS [facility] Stop: 09/20/22 07:59 Last Admin: 08/21/22 08:54 Dose: Not Given Documented By: BRODERICK Morphine Sulfate (Morphine Sulfate 4 Mg/Ml 1 Ml Carp\\Vial) 4 mg IV NOW STA Stop: 08/20/22 22:39 Last Admin: 08/20/22 22:46 Dose: 4 mg Documented By: IRVING Morphine Sulfate (Morphine Sulfate 2 Mg/Ml Carp) 2 mg IV NOW STA Stop: 08/21/22 01:32 Last Admin: 08/21/22 02:41 Dose: 2 mg Documented By: ALEXANDREA Oxycodone HCl (Oxycodone Hcl Ir 5 Mg Tab (Immediate Release)) 2.5 mg PO NOW ST[facility] Stop: 08/20/22 20:09 Last Admin: 08/20/22 20:26 Dose: 2.5 mg Documented By: IRVING Imaging Data Radiologist's Impression: Femur X-Ray 08/20/22 20:08 XR pelvis 1-2V routine, XR femur LT 2V routine HISTORY: 76 years-old Male fall hip pain acute pelvic and left hip pain status post fall COMPARISON: CT abdomen and pelvis 05/02/2022 TECHNIQUE: AP view the pelvis with 2 views of the left femur FINDINGS: PELVIS: Left hip total joint arthroplasty. Heterotopic ossifications surrounding the left hip are again noted. ORIF changes of the right proximal femur. Equivocal femoral head avascular necrosis. No acute fracture or dislocation identified. Study is limited secondary to positioning. Fusion hardware with discectomy changes of the lower lumbar spine. LEFT FEMUR: No acute fracture or dislocation. Arterial calcifications. Unremarkable appear ance of the left hip total joint arthroplasty. Osteoarthritis of the knee. IMPRESSION: 1. No acute fracture or dislocation identified. 2. Unremarkable appearance of the left hip total joint arthroplasty. 3. Limited dislocation of the left pelvic ring secondary to positioning. ACT 112: Negative or not required by law. The above report was generated using voice recognition software. It may contain grammatical, syntax or spelling errors. Electronically signed by: Valente Jung M.D. 08/20/2022 8:51 PM Pelvis X-Ray 08/20/22 20:08 XR pelvis 1-2V routine, XR femur LT 2V routine HISTORY: 76 years-old Male fall hip pain acute pelvic and left hip pain status post fall COMPARISON: CT abdomen and pelvis 05/02/2022 TECHNIQUE: AP view the pelvis with 2 views of the left femur FINDINGS: PELVIS: Left hip total joint arthroplasty. Heterotopic ossifications surrounding the left hip are again noted. ORIF changes of the right proximal femur. Equivocal femoral head avascular necrosis. No acute fracture or dislocation identified. Study is limited secondary to positioning. Fusion hardware with discectomy changes of the lower lumbar spine. LEFT FEMUR: No acute fracture or dislocation. Arterial calcifications. Unremarkable appearance of the left hip total joint arthroplasty. Osteoarthritis of the knee. IMPRESSION: 1. No acute fracture or dislocation identified. 2. Unremarkable appearance of the left hip total joint arthroplasty. 3. Limited dislocation of the left pelvic ring secondary to positioning. ACT 112: Negative or not required by law. The above report was generated using voice recognition software. It may contain grammatical, syntax or spelling errors. Electronically signed by: Valente Jung M.D. 08/20/2022 8:[address] 08/20/22 20:49 CT hip LT wo con, CT pelvis wo con CLINICAL HISTORY: fall, hip pain TECHNIQUE: Multidetector row helical CT of the left hip and pelvis was performed without intravenous contrast. Coronal and sagittal reformations were obtained. Automated dose lowering techniques and/or adjustment according to patient size were utilized for this examination. Comparison: Comparison is made to pelvis radiograph 08/20/[address] pelvis 05/02/2022 FINDINGS: Posterior fixation hardware is seen lumbar spine. There is a right medullary nail and left total hip arthroplasty. There is an acute fracture of the left inferior pubic ramus. There is a nondisplaced fracture of the left sacral wing adjacent to the sacroiliac joint. No joint effusion is seen. Mild soft tissue swelling is seen in the pelvis and left sacrum. IMPRESSION: Nondisplaced fracture of the left sacral wing and minimally displaced fracture of the left inferior pubic ramus. No hip fractures are seen. ACT 112: Negative or not required by law. Electronically signed by: Robert Duran M.D. 08/21/2022 8:[address] 08/20/22 20:49 CT hip LT wo con, CT pelvis wo con CLINICAL HISTORY: fall, hip pain TECHNIQUE: Multidetector row helical CT of the left hip and pelvis was performed without intravenous contrast. Coronal and sagittal reformations were obtained. Automated dose lowering techniques and/or adjustment according to patient size were utilized for this examination. Comparison: Comparison is made to pelvis radiograph 08/20/[address] pelvis 05/02/2022 FINDINGS: Posterior fixation hardware is seen lumbar spine. There is a right medullary nail and left total hip arthroplasty. There is an acute fracture of the left inferior pubic ramus. There is a nondisplaced fracture of the left sacral wing adjacent to the sacroiliac joint. No joint effusion is seen. Mild soft tissue swelling is seen in the pelvis and left sacrum. IMPRESSION: Nondisplaced fracture of the left sacral wing and minimally displaced fracture of the left inferior pubic ramus. No hip fractures are seen. ACT 112: Negative or not required by law. Electronically signed by: Robert Duran M.D. 08/21/2022 8:22 AM Discharge Plan Visit Data Chief Complaint: Hip Pain Stated Complaint: FALL, HIP PAIN ED Provider: Yousuf Wilson Discharge Problem: Closed fracture of left pelvis, Inability to ambulate due to hip, Parkinson disease Patient Disposition: Admitted As Inpatient Discharge Instructions Interventions: ED Discharge Assessment Last Done: 08/21/22 02:51
[2022-08-20] MEDS ORDERED: oxyCODONE HCL IR 5 MG TAB (IMMEDIATE RELEASE) PO STA (20:08)
--- NOTE | 2022-08-20 20:53 | XRay Report ---
XR pelvis 1-2V routine, XR femur LT 2V routine HISTORY: 76 years-old Male fall hip pain acute pelvic and left hip pain status post fall COMPARISON: CT abdomen and pelvis 05/02/2022 TECHNIQUE: AP view the pelvis with 2 views of the left femur FINDINGS: PELVIS: Left hip total joint arthroplasty. Heterotopic ossifications surrounding the left hip are again noted . ORIF changes of the right proximal femur. Equivocal femoral head avascular necrosis. No acute fract ure or dislocation identified. Study is limited secondary to positioning. Fusion hardware with discec estevan changes of the lower lumbar spine. LEFT FEMUR: No acute fracture or dislocation. Arterial calcifications. Unremarkable appearance of the left hip to christiano joint arthroplasty. Osteoarthritis of the knee. IMPRESSION: 1. No acute fracture or dislocation identified. 2. Unremarkable appearance of the left hip total joint arthroplasty. 3. Limited dislocation of the left pelvic ring secondary to positioning. ACT 112: Negative or not required by law. The above report was generated using voice recognition software. It may contain grammatical, syntax o r spelling errors. Electronically signed by: Valente Jung M.D. 08/20/2022 8:51 PM
[2022-08-20] MEDS ORDERED: MoRPHine SULFATE 4 MG/ML 1 ML CARP\\VIAL IV STA (22:38)
[2022-08-20 23:13] LABS: Basophils # (auto) 0.04 K/uL (0-0.2); Basophils % (auto) 0.3 %; Eosinophils # (auto) 0.06 K/uL (0-0.50); Eosinophils % (auto) 0.5 %; Hemoglobin 14.4 g/dl (14.0-18.0); Immature Granulocytes # (auto) 0.07 K/uL (0.00-0.02); Immature Granulocytes % (auto) 0.6 %; Lymphocytes # (auto) 1.27 K/uL (1.2-3.4); Lymphocytes % (auto) 10.2 %; Mean Corpuscular Hemoglobin 30.1 pg (25.0-34.0); Mean Corpuscular Hgb Conc 33.5 g/dL (32.0-36.0); Monocytes # (auto) 0.66 K/uL (0.24-0.82); Monocytes % (auto) 5.3 %; Neutrophils # (auto) 10.38 K/uL (1.4-6.5); Neutrophils % (auto) 83.1 %; Platelet Count 213 K/uL (130-400); RDW Coefficient of Variation 13.6 % (11.5-14.5); RDW Standard Deviation 44.5 fL (36.4-46.3); Red Blood Count 4.78 M/uL (4.63-6.08); White Blood Count 12.48 K/ul (4.8-10.8)
[2022-08-20 23:56] LABS: Albumin Globulin Ratio 1.4 (0.9-2); Albumin Level 4.1 gm/dl (3.4-5.0); BUN Creatinine Ratio 28.6 (10-20); Bilirubin,Total 0.5 mg/dl (0.2-1.0); Calcium 9.1 mg/dl (8.5-10.1); Creatinine Clr Calc Pharmacy 100.4 ml/min; Est GFR (African American) 102.9 ml/min; Est GFR (Non-African American) 88.8 ml/min; Globulin 2.9 gm/dl (2.5-4.0); Potassium 4.2 mmol/L (3.5-5.1)
--- NOTE | 2022-08-21 01:04 | History & Physical Report ---
Date of Service August 21, 2022 Assessment & Plan (1) Complicated UTI (urinary tract infection): Plan: Complicated UTI (urinary tract infection) hx BPH hx ESBL E. coli Recurrent issue No sepsis for now Pelvic fracture secondary to mechanical fall Ambulatory dysfunction secondary to Parkinson's disease hypertension, stable GMF Follow urine CS, Ertapenem Orthopedics consult Re: Pelvic fracture PT OT eval DVT prophylaxis per Lovenox subcu Full code Patient request for son to be updated of progress. Mr. Ken Lombardi, contact # is [phone]. Text document was generated using [employer] voice recognition software. It may contain grammatical or spelling errors. Kindly contact undersigned for clarification of any documentation item in question. History of Present Illness Chief Complaint: Fall, weakness Primary Care Provider: [facility] History obtained from patient and records. Patient is a reliable historian. Medical history significant for Parkinson's disease,CVA as per records, hypertension, BPH, recurrent UTIs (hx of ESBL E. coli as per records) Last confinement April 2022 for ESBL E. coli UTI. Patient completed Ertapenem course. Patient slid out of bed trying to walk to his wheelchair last night. Achy hip and back pain. No head trauma. Increased weakness. Patient more confused than usual as per staff. Patient denies chest pain, SOB. Patient brought to the ER for evaluation. 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, [facility] resident Allergies Allergy/AdvReac Type Severity Reaction Status Date / Time Iodinated Contrast Media Allergy Intermediate IV OR Verified 08/21/22 00:03 ORAL--SKIN FLUSHES Home Medications Medication Instructions Recorded Confirmed Type carbidopa 25 mg-levodopa 100 mg 1 tab PO TID 07/08/18 08/20/22 History tablet finasteride 5 mg tablet 5 mg PO QAM 06/26/19 08/20/22 History pantoprazole 40 mg tablet,delayed 40 mg PO DAILYBB 06/26/19 08/21/22 History release sertraline 100 mg tablet 100 mg PO QAM 06/26/19 08/20/22 History dorzolamide 22.3 mg-timolol 6.8 1 p OPB BID 01/23/20 08/20/22 History mg/mL eye drops acetaminophen 325 mg tablet 650 mg PO Q4H PRN Pain 04/24/20 08/20/22 History (Tylenol) docusate sodium 100 mg capsule 100 mg PO BID 04/24/20 08/20/22 History loratadine 10 mg tablet 10 mg PO QAM 04/24/20 08/21/22 History tamsulosin 0.4 mg capsule (Flomax) 0.4 mg PO HS 04/24/20 08/20/22 History brimonidine 0.2 % eye drops 1 drp OPB Q12H 03/14/21 08/20/22 History duloxetine 20 mg capsule,delayed 20 mg PO BID 03/14/21 08/20/22 History release (Cymbalta) hydrocortisone 2.5 % topical cream 1 applic topical BID PRN irritation 04/15/21 08/20/22 History carboxymethylcellulose sodium 1 % 1 drp ophthalmic (eye) DAILY 11/01/21 08/20/22 History eye drops (Artificial Tears (carboxymethylcellulose)) vit C 250 mg-vit E 90 mg-zinc 40 1 tab PO BID 11/01/21 08/20/22 History mg-copper 1 [id number] capsule (PreserVision AREDS-2) Past Med/Surg History Medical History (Updated 08/21/22 @ 09:47 by Rodolfo Devries PA-C) Abdominal pain Alzheimer disease Anxiety Dementia Substance abuse UTI due to extended-spectrum beta lactamase (ESBL) producing Escherichia coli Surgical History History of total left hip arthroplasty Family History Other No pertinent family history in first degree relatives Social History Smoking Status: Former smoker Tobacco Type: Cigarettes Second Hand Exposure: No; Do You Dip or Chew Tobacco: No; Tobacco Cessation Education Requested by Patient: No Hx Alcohol Use: No Hx Substance Use: Yes Prescribed Medications: Marijuana Last Used Substance: Days (ago) Last Used Substance Other:: 2 weeks ago, "I ran out" Substance Use Type Other:: smokes canibis/ medical marijuana Preferred Language: Swedish Communication Ability: Effective Insurance Verify Rep Required: No Beliefs That Will Affect Care: None marital status: Current Living Situation: [facility] Current Living Situation Comment: [facility] 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 Feels Safe at Home: Yes Safety Concerns: Feels Safe At This Time Assistive Devices: Glasses, Walker and Wheelchair Review of Systems Review of Systems: As per HPI, all other systems reviewed and negative Physical Exam Physical Exam: GENERAL: Slightly uncomfortable, pleasant, no respiratory distress SKIN: Pallor, warm HEENT: Pale palpebral conjunctivae, no ptosis, dry buccal mucosa NECK : Supple, no tenderness CHEST : Decreased breath sounds, no tenderness HEART : RRR, no obvious murmurs ABDOMEN: Some distention, minimal hypogastric tenderness EXTREMITIES : No LE swelling/tenderness, no other conspicuous deformities noted NEUROLOGIC : Coherent, no facial asymmetry, bradykinetic, MMTS BUE 4/5, BLE 2/5, gait and stance not assessed Results & Data Results & Data ([facility]) Vital Signs (Past 12 Hours) Vital Signs Temp Pulse Pulse Resp BP BP Pulse Ox 08/20/22 23:00 84 15 144/80 H 94 08/20/22 23:00 94 08/20/22 19:13 36.6 C 72 20 179/96 H 94 O2 Del Method 08/20/22 23:00 Room Air 08/20/22 23:00 Room Air 08/20/22 19:13 Room Air Laboratory Results Laboratory Results WBC 12.48 K/ul (4.8-10.8) H 08/20/22 22:50 RBC 4.78 M/uL (4.63-6.08) 08/20/22 22:50 Hgb 14.4 g/dl (14.0-18.0) 08/20/22 22:50 Hct 43.0 % (40.1-51.0) 08/20/22 22:50 MCV 90.0 fL (80.0-100.0) 08/20/22 22:50 MCH 30.1 pg (25.0-34.0) 08/20/22 22:50 MCHC 33.5 g/dL (32.0-36.0) 08/20/22 22:50 RDW Std Deviation 44.5 fL (36.4-46.3) 08/20/22 22:50 RDW Coeff of David 13.6 % (11.5-14.5) 08/20/22 22:50 Plt Count 213 K/uL (130-400) 08/20/22 22:50 MPV 10.0 fL (9.4-12.4) 08/20/22 22:50 Immature Gran % (Auto) 0.6 % 08/20/22 22:50 Neut % (Auto) 83.1 % 08/20/22 22:50 Lymph % (Auto) 10.2 % 08/20/22 22:50 [place] % (Auto) 5.3 % 08/20/22 22:50 Eos % (Auto) 0.5 % 08/20/22 22:50 Baso % (Auto) 0.3 % 08/20/22 22:50 Neut # (Auto) 10.38 K/uL (1.4-6.5) H 08/20/22 22:50 Lymph # (Auto) 1.27 K/uL (1.2-3.4) 08/20/22 22:50 [place] # (Auto) 0.66 K/uL (0.24-0.82) 08/20/22 22:50 Eos # (Auto) 0.06 K/uL (0-0.50) 08/20/22 22:50 Baso # (Auto) 0.04 K/uL (0-0.2) 08/20/22 22:50 Immature Gran # (Auto) 0.07 K/uL (0.00-0.02) H 08/20/22 22:50 Sodium 139 mmol/L (136-145) 08/20/22 22:50 Potassium 4.2 mmol/L (3.5-5.1) 08/20/22 22:50 Chloride 105 mmol/L (98-107) 08/20/22 22:50 Carbon Dioxide 27 mmol/L (21-32) 08/20/22 22:50 Anion Gap 7 (3-11) 08/20/22 22:50 BUN 22 mg/dl (6-23) 08/20/22 22:50 Creatinine 0.77 mg/dl (0.6-1.4) 08/20/22 22:50 Est Cr Clr Drug Dosing 100.4 ml/min 08/20/22 22:50 Est GFR ( Amer) 102.9 ml/min 08/20/22 22:50 Est GFR (Non-Af Amer) 88.8 ml/min 08/20/22 22:50 BUN/Creatinine Ratio 28.6 (10-20) H 08/20/22 22:50 Glucose 92 mg/dl (70-99(Fasting)) 08/20/22 22:50 Calcium 9.1 mg/dl (8.5-10.1) 08/20/22 22:50 Total Bilirubin 0.5 mg/dl (0.2-1.0) 08/20/22 22:50 AST 12 U/L (13-39) L 08/20/22 22:50 ALT 7 U/L (7-52) 08/20/22 22:50 Alkaline Phosphatase 115 U/L (34-104) H 08/20/22 22:50 Total Protein 7.0 gm/dl (6.0-8.3) 08/20/22 22:50 Albumin 4.1 gm/dl (3.4-5.0) 08/20/22 22:50 Globulin 2.9 gm/dl (2.5-4.0) 08/20/22 22:50 Albumin/Globulin Ratio 1.4 (0.9-2) 08/20/22 22:50 SARS-CoV-2, RNA, NAAT NEGATIVE (NEGATIVE) 08/20/22 22:50 UA WBC est, nitrite positive Impressions Femur X-Ray 08/20/22 20:08 XR pelvis 1-2V routine, XR femur LT 2V routine HISTORY: 76 years-old Male fall hip pain acute pelvic and left hip pain status post fall COMPARISON: CT abdomen and pelvis 05/02/2022 TECHNIQUE: AP view the pelvis with 2 views of the left femur FINDINGS: PELVIS: Left hip total joint arthroplasty. Heterotopic ossifications surrounding the left hip are again noted. ORIF changes of the right proximal femur. Equivocal femoral head avascular necrosis. No acute fracture or dislocation identified. Study is limited secondary to positioning. Fusion hardware with discectomy changes of the lower lumbar spine. LEFT FEMUR: No acute fracture or dislocation. Arterial calcifications. Unremarkable appearance of the left hip total joint arthroplasty. Osteoarthritis of the knee. IMPRESSION: 1. No acute fracture or dislocation identified. 2. Unremarkable appearance of the left hip total joint arthroplasty. 3. Limited dislocation of the left pelvic ring secondary to positioning. ACT 112: Negative or not required by law. The above report was generated using voice recognition software. It may contain grammatical, syntax or spelling errors. Electronically signed by: Valente Jung M.D. 08/20/2022 8:51 PM Pelvis X-Ray 08/20/22 20:08 XR pelvis 1-2V routine, XR femur LT 2V routine HISTORY: 76 years-old Male fall hip pain acute pelvic and left hip pain status post fall COMPARISON: CT abdomen and pelvis 05/02/2022 TECHNIQUE: AP view the pelvis with 2 views of the left femur FINDINGS: PELVIS: Left hip total joint arthroplasty. Heterotopic ossifications surrounding the left hip are again noted. ORIF changes of the right proximal femur. Equivocal femoral head avascular necrosis. No acute fracture or dislocation identified. Study is limited secondary to positioning. Fusion hardware with discectomy changes of the lower lumbar spine. LEFT FEMUR: No acute fracture or dislocation. Arterial calcifications. Unremarkable appearance of the left hip total joint arthroplasty. Osteoarthritis of the knee. IMPRESSION: 1. No acute fracture or dislocation identified. 2. Unremarkable appearance of the left hip total joint arthroplasty. 3. Limited dislocation of the left pelvic ring secondary to positioning. ACT 112: Negative or not required by law. The above report was generated using voice recognition software. It may contain grammatical, syntax or spelling errors. Electronically signed by: Valente Jung M.D. 08/20/2022 8:[address] Pelvis initial read: There is a minimallydisplaced fracture involving the left inferior pubic ramus. There is a subtle fracture involving the left sacral wing adjacent to the sacroiliac joint. The left total hip arthroplastyis maintained without fracture or dislocation. No significant overlying acute traumatic soft tissue abnormalit CT left hip initial read: The left sacral wing fracture noted adjacent to the sacroiliac joint noted on the pelvic examination is not included on this exam. The left total hip arthroplastyiswell aligned without fracture or dislocation. No significant overlying soft tissue abnormality.
[2022-08-21] MEDS ORDERED: MoRPHine SULFATE 2 MG/ML CARP IV STA (01:31)
[2022-08-21] MEDS ORDERED: KETOROLAC TROMETHAMINE 15 MG/ML VIAL IV PRN (01:39)
[2022-08-21 03:02] LABS: Appearance Urine Slightly Cloudy (Clear); Bilirubin Urine Negative (Negative); Blood Urine 2+ (Negative); Color Urine Yellow; Glucose Urine UA Negative (Negative); Ketones Urine Negative (Negative); Leukocyte Esterase Urine 3+ (Negative); Nitrite Urine Positive (Negative); Protein Urine Trace (Negative); Specific Gravity Urine 1.025 (1.000-1.030); Urobilinogen Urine Negative (Negative); pH Urine 5.5 (4.5-7.5)
[2022-08-21 03:25] LABS: Bacteria Urine 4+ (Negative); Epithelial Cell Urine >30 /lpf (0-5); RBC Urine >30 /hpf (0-4); WBC Urine >30 /hpf (0-5)
[2022-08-21] MEDS ORDERED: SODIUM CHLORIDE 0.9% 1000ML 1,000 ML IV ONE (03:38)
[2022-08-21] MEDS: CARBIDOPA/LEVODOPA 25/100MG TAB PO SCH ×5 (05:52→20:30)
[2022-08-21] MEDS: DULoxetine HCL 20 MG CAP PO SCH ×3 (05:54→20:30)
[2022-08-21] MEDS: TAMSULOSIN HCL 0.4 MG CAP PO SCH ×2 (05:54)
[2022-08-21] MEDS: PANTOprazole 40 MG TAB PO SCH (05:54)
[2022-08-21] MEDS: DORZOLAMIDE/TIMOLOL 22.3/6.8MG/ML 10 ML BTL OPB SCH ×3 (05:54→20:30)
[2022-08-21] MEDS: oxyCODONE HCL IR 5 MG TAB (IMMEDIATE RELEASE) PO PRN ×2 (05:55→22:03)
--- NOTE | 2022-08-21 08:24 | CT Scan Report ---
CT hip LT wo con, CT pelvis wo con CLINICAL HISTORY: fall, hip pain TECHNIQUE: Multidetector row helical CT of the left hip and pelvis was performed without intravenous contrast. Coronal and sagittal reformations were obtained. Automated dose lowering techniques and/or adjustment according to patient size were utilized for this examination. Comparison: Comparison is made to pelvis radiograph 08/20/[address] pelvis 05/02/2022 FINDINGS: Posterior fixation hardware is seen lumbar spine. There is a right medullary nail and left total hip arthroplasty. There is an acute fracture of the left inferior pubic ramus. There is a nondisplaced fr acture of the left sacral wing adjacent to the sacroiliac joint. No joint effusion is seen. Mild sof t tissue swelling is seen in the pelvis and left sacrum. IMPRESSION: Nondisplaced fracture of the left sacral wing and minimally displaced fracture of the left inferior p ubic ramus. No hip fractures are seen. ACT 112: Negative or not required by law. Electronically signed by: Robert Duran M.D. 08/21/2022 8:22 AM
[2022-08-21] MEDS: ERTAPENEM SODIUM 1,000 MG in SYRINGE 0 ML IV SCH (08:31)
[2022-08-21] MEDS: BRIMONIDINE TARTRATE 0.2% 5ML OPB SCH ×2 (08:51→20:31)
[2022-08-21] MEDS: FINASTERIDE 5 MG TAB PO SCH (08:51)
[2022-08-21] MEDS: SERTRALINE HCL 100 MG TABLET PO SCH (08:52)
[2022-08-21] MEDS: LORATADINE 10 MG TAB PO SCH (08:52)
[2022-08-21] MEDS: DOCUSATE SODIUM 100 MG CAP PO SCH ×2 (08:53→20:30)
[2022-08-21] MEDS: ENOXAPARIN INJ 40 MG/0.4 ML SYR SQ SCH (08:53)
[2022-08-21 09:09] LABS: Basophils # (auto) 0.03 K/uL (0-0.2); Basophils % (auto) 0.3 %; Eosinophils # (auto) 0.17 K/uL (0-0.50); Eosinophils % (auto) 1.7 %; Hematocrit (blood only) 38.5 % (40.1-51.0); Hemoglobin 12.9 g/dl (14.0-18.0); Immature Granulocytes # (auto) 0.03 K/uL (0.00-0.02); Immature Granulocytes % (auto) 0.3 %; Lymphocytes # (auto) 1.03 K/uL (1.2-3.4); Lymphocytes % (auto) 10.1 %; Mean Corpuscular Hemoglobin 29.8 pg (25.0-34.0); Mean Corpuscular Hgb Conc 33.5 g/dL (32.0-36.0); Mean Corpuscular Volume 88.9 fL (80.0-100.0); Mean Platelet Volume 10.1 fL (9.4-12.4); Monocytes % (auto) 7.9 %; Neutrophils # (auto) 8.11 K/uL (1.4-6.5); Neutrophils % (auto) 79.7 %; Platelet Count 187 K/uL (130-400); RDW Coefficient of Variation 13.7 % (11.5-14.5); RDW Standard Deviation 44.6 fL (36.4-46.3); Red Blood Count 4.33 M/uL (4.63-6.08); White Blood Count 10.17 K/ul (4.8-10.8)
[2022-08-21 09:30] LABS: BUN Creatinine Ratio 31.3 (10-20); Calcium 8.5 mg/dl (8.5-10.1); Est GFR (Non-African American) 95.8 ml/min; Potassium 3.9 mmol/L (3.5-5.1)
--- NOTE | 2022-08-21 09:38 | Orthopedic Consultation ---
Date of Consultation August 21, 2022 Assessment & Plan (1) Fracture of left pelvis: X-rays reviewed by myself. Case discussed with Dr. Foreman who is on-call today. Above-noted results on CT pelvis showing left inferior ramus fracture minimally displaced as well as sacral fractures as noted. Continue pain management as needed. Patient should be partial weightbearing of the left lower extremity at this time. Patient should follow-up and Dr. Foreman's office in 2 weeks for reevaluation. History of Present Illness Reason for Consultation: Pelvic fracture Attending Physician: Thanh Salazar MD History of Present Illness 76-year-old male who resides at [facility] was admitted last night after mechanical fall. Patient with past medical history significant for Parkinson's disease,CVA as per records, hypertension, BPH, recurrent UTIs (hx of ESBL E. coli as per records). Patient states that he uses a walker and a wheelchair for assistive devices. He states he was trying to get out of bed apparently to his wheelchair. He was looking for the light switch and ended up falling out of bed. There was no loss of consciousness. Denies hitting his head. He was having some apparent left hip and low back pain. He was brought to the emergency room where x-rays were taken. CT scans of the pelvis and hip were also done which denoted inferior pubic ramus fracture on the left as well as left nondisplaced sacral fractures. [facility] and we have been asked to see him for his pelvic fracture. Patient is currently sitting up in bed eating some of his breakfast. He is comfortable at rest. He has no new complaints. He denies any low back pain at this time. His pain is controlled with his left hip/groin Allergies Allergy/AdvReac Type Severity Reaction Status Date / Time Iodinated Contrast Media Allergy Intermediate IV OR Verified 08/21/22 00:03 ORAL--SKIN FLUSHES Home Medications Medication Instructions Recorded Confirmed Type carbidopa 25 mg-levodopa 100 mg 1 tab PO TID 07/08/18 08/20/22 History tablet finasteride 5 mg tablet 5 mg PO QAM 06/26/19 08/20/22 History pantoprazole 40 mg tablet,delayed 40 mg PO DAILYBB 06/26/19 08/21/22 History release sertraline 100 mg tablet 100 mg PO QAM 06/26/19 08/20/22 History dorzolamide 22.3 mg-timolol 6.8 1 drp OPB BID 01/23/20 08/20/22 History mg/mL eye drops acetaminophen 325 mg tablet 650 mg PO Q4H PRN Pain 04/24/20 08/20/22 History (Tylenol) docusate sodium 100 mg capsule 100 mg PO BID 04/24/20 08/20/22 History loratadine 10 mg tablet 10 mg PO QAM 04/24/20 08/21/22 History tamsulosin 0.4 mg capsule (Flomax) 0.4 mg PO HS 04/24/20 08/20/22 History brimonidine 0.2 % eye drops 1 drp OPB Q12H 03/14/21 08/20/22 History duloxetine 20 mg capsule,delayed 20 mg PO BID 03/14/21 08/20/22 History release (Cymbalta) hydrocortisone 2.5 % topical cream 1 applic topical BID PRN irritation 04/15/21 08/20/22 History carboxymethylcellulose sodium 1 % 1 drp ophthalmic (eye) DAILY 11/01/21 08/20/22 History eye drops (Artificial Tears (carboxymethylcellulose)) vit C 250 mg-vit E 90 mg-zinc 40 1 tab PO BID 11/01/21 08/20/22 History mg-copper 1 [id number] capsule (PreserVision AREDS-2) Patient History Medical History (Updated 08/21/22 @ 09:47 by Rodolfo Devries PA-C) Abdominal pain Alzheimer disease Anxiety Dementia Substance abuse UTI due to extended-spectrum beta lactamase (ESBL) producing Escherichia coli Surgical History History of total left hip arthroplasty Family History Other No pertinent family history in first degree relatives Social History Smoking Status: Former smoker Tobacco Type: Cigarettes Second Hand Exposure: No; Do You Dip or Chew Tobacco: No; Tobacco Cessation Education Requested by Patient: No Hx Alcohol Use: No Hx Substance Use: Yes Prescribed Medications: Marijuana Last Used Substance: Days (ago) Last Used Substance Other:: 2 weeks ago, "I ran out" Substance Use Type Other:: smokes canibis/ medical marijuana Preferred Language: Micronesian Communication Ability: Effective 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 He is pleasant and cooperative. No acute distress. Oriented to person and place. On examination of his left lower extremity, he has the knee propped up on 1 pillow for comfort. He describes some mild decrease sensation over the anterior portion of his tibia but states that is the only area where he is having some of that sensation. He is able to feel me touching his left foot. He has a strong dorsalis pedis pulse of the left foot. He is able to move the ankle and toes actively. He has only mild discomfort on palpation of the lateral hip at this time. He does have pain in the left groin with forward flexion of the hip as well as a little bit of the abduction and adduction. Minimal discomfort with internal and external rotation. Results & Data ([facility]) Vital Signs (Past 12 Hours) Vital Signs Temp Pulse Pulse Resp BP Pulse Ox O2 Del Method 08/21/22 07:46 Room Air 08/21/22 03:40 Room Air 08/21/22 03:40 36.8 C 76 18 154/87 H 93 Room Air 08/21/22 03:15 36.8 C 76 18 154/87 H 93 Room Air 08/21/22 01:00 79 24 147/79 H 95 Room Air 08/20/22 23:00 84 15 144/80 H 94 Room Air 08/20/22 23:00 94 Room Air Laboratory Results Laboratory Results WBC 10.17 K/ul (4.8-10.8) 08/21/22 08:36 RBC 4.33 M/uL (4.63-6.08) L 08/21/22 08:36 Hgb 12.9 g/dl (14.0-18.0) L 08/21/22 08:36 Hct 38.5 % (40.1-51.0) L 08/21/22 08:36 MCV 88.9 fL (80.0-100.0) 08/21/22 08:36 MCH 29.8 pg (25.0-34.0) 08/21/22 08:36 MCHC 33.5 g/dL (32.0-36.0) 08/21/22 08:36 RDW Std Deviation 44.6 fL (36.4-46.3) 08/21/22 08:36 RDW Coeff of David 13.7 % (11.5-14.5) 08/21/22 08:36 Plt Count 187 K/uL (130-400) 08/21/22 08:36 MPV 10.1 fL (9.4-12.4) 08/21/22 08:36 Immature Gran % (Auto) 0.3 % 08/21/22 08:36 Neut % (Auto) 79.7 % 08/21/22 08:36 Lymph % (Auto) 10.1 % 08/21/22 08:36 [place] % (Auto) 7.9 % 08/21/22 08:36 Eos % (Auto) 1.7 % 08/21/22 08:36 Baso % (Auto) 0.3 % 08/21/22 08:36 Neut # (Auto) 8.11 K/uL (1.4-6.5) H 08/21/22 08:36 Lymph # (Auto) 1.03 K/uL (1.2-3.4) L 08/21/22 08:36 [place] # (Auto) 0.80 K/uL (0.24-0.82) 08/21/22 08:36 Eos # (Auto) 0.17 K/uL (0-0.50) 08/21/22 08:36 Baso # (Auto) 0.03 K/uL (0-0.2) 08/21/22 08:36 Immature Gran # (Auto) 0.03 K/uL (0.00-0.02) H 08/21/22 08:36 Sodium 138 mmol/L (136-145) 08/21/22 08:36 Potassium 3.9 mmol/L (3.5-5.1) 08/21/22 08:36 Chloride 105 mmol/L (98-107) 08/21/22 08:36 Carbon Dioxide 26 mmol/L (21-32) 08/21/22 08:36 Anion Gap 7 (3-11) 08/21/22 08:36 BUN 20 mg/dl (6-23) 08/21/22 08:36 Creatinine 0.64 mg/dl (0.6-1.4) 08/21/22 08:36 Est Cr Clr Drug Dosing 116.0 ml/min 08/21/22 08:36 Est GFR ( Amer) 111.0 ml/min 08/21/22 08:36 Est GFR (Non-Af Amer) 95.8 ml/min 08/21/22 08:36 BUN/Creatinine Ratio 31.3 (10-20) H 08/21/22 08:36 Glucose 96 mg/dl (70-99(Fasting)) 08/21/22 08:36 Calcium 8.5 mg/dl (8.5-10.1) 08/21/22 08:36 Total Bilirubin 0.5 mg/dl (0.2-1.0) 08/20/22 22:50 AST 12 U/L (13-39) L 08/20/22 22:50 ALT 7 U/L (7-52) 08/20/22 22:50 Alkaline Phosphatase 115 U/L (34-104) H 08/20/22 22:50 Total Creatine Kinase 20 U/L (30-223) L 08/20/22 22:50 Total Protein 7.0 gm/dl (6.0-8.3) 08/20/22 22:50 Albumin 4.1 gm/dl (3.4-5.0) 08/20/22 22:50 Globulin 2.9 gm/dl (2.5-4.0) 08/20/22 22:50 Albumin/Globulin Ratio 1.4 (0.9-2) 08/20/22 22:50 Urine Color Yellow 08/21/22 02:44 Urine Appearance Slightly Cloudy (Clear) 08/21/22 02:44 Urine pH 5.5 (4.5-7.5) 08/21/22 02:44 Ur Specific [place] 1.025 (1.000-1.030) 08/21/22 02:44 Urine Protein Trace (Negative) H 08/21/22 02:44 Urine Glucose (UA) Negative (Negative) 08/21/22 02:44 Urine Ketones Negative (Negative) 08/21/22 02:44 Urine Blood 2+ (Negative) H 08/21/22 02:44 Urine Nitrite Positive (Negative) A 08/21/22 02:44 Urine Bilirubin Negative (Negative) 08/21/22 02:44 Urine Urobilinogen Negative (Negative) 08/21/22 02:44 Ur Leukocyte Esterase 3+ (Negative) H 08/21/22 02:44 Urine RBC >30 /hpf (0-4) H 08/21/22 02:44 Urine WBC >30 /hpf (0-5) H 08/21/22 02:44 Ur Epithelial Cells >30 /lpf (0-5) H 08/21/22 02:44 Urine Bacteria 4+ (Negative) H 08/21/22 02:44 Nasal Screen MRSA (PCR) Negative (Negative) 08/21/22 04:45 SARS-CoV-2, RNA, NAAT NEGATIVE (NEGATIVE) 08/20/22 22:50 Impressions Femur X-Ray 08/20/22 20:08 XR pelvis 1-2V routine, XR femur LT 2V routine HISTORY: 76 years-old Male fall hip pain acute pelvic and left hip pain status post fall COMPARISON: CT abdomen and pelvis 05/02/2022 TECHNIQUE: AP view the pelvis with 2 views of the left femur FINDINGS: PELVIS: Left hip total joint arthroplasty. Heterotopic ossifications surrounding the left hip are again noted. ORIF changes of the right proximal femur. Equivocal femoral head avascular necrosis. No acute fracture or dislocation identified. Study is limited secondary to positioning. Fusion hardware with discectomy changes of the lower lumbar spine. LEFT FEMUR: No acute fracture or dislocation. Arterial calcifications. Unremarkable appearance of the left hip total joint arthroplasty. Osteoarthritis of the knee. IMPRESSION: 1. No acute fracture or dislocation identified. 2. Unremarkable appearance of the left hip total joint arthroplasty. 3. Limited dislocation of the left pelvic ring secondary to positioning. ACT 112: Negative or not required by law. The above report was generated using voice recognition software. It may contain grammatical, syntax or spelling errors. Electronically signed by: Valente Jung M.D. 08/20/2022 8:51 PM Pelvis X-Ray 08/20/22 20:08 XR pelvis 1-2V routine, XR femur LT 2V routine HISTORY: 76 years-old Male fall hip pain acute pelvic and left hip pain status post fall COMPARISON: CT abdomen and pelvis 05/02/2022 TECHNIQUE: AP view the pelvis with 2 views of the left femur FINDINGS: PELVIS: Left hip total joint arthroplasty. Heterotopic ossifications surrounding the left hip are again noted. ORIF changes of the right proximal femur. Equivocal femoral head avascular necrosis. No acute fracture or dislocation identified. Study is limited secondary to positioning. Fusion hardware with discectomy changes of the lower lumbar spine. LEFT FEMUR: No acute fracture or dislocation. Arterial calcifications. Unremarkable appearance of the left hip total joint arthroplasty. Osteoarthritis of the knee. IMPRESSION: 1. No acute fracture or dislocation identified. 2. Unremarkable appearance of the left hip total joint arthroplasty. 3. Limited dislocation of the left pelvic ring secondary to positioning. ACT 112: Negative or not required by law. The above report was generated using voice recognition software. It may contain grammatical, syntax or spelling errors. Electronically signed by: Valente Jung M.D. 08/20/2022 8:[address] 08/20/22 20:49 CT hip LT wo con, CT pelvis wo con CLINICAL HISTORY: fall, hip pain TECHNIQUE: Multidetector row helical CT of the left hip and pelvis was performed without intravenous contrast. Coronal and sagittal reformations were obtained. Automated dose lowering techniques and/or adjustment according to patient size were utilized for this examination. Comparison: Comparison is made to pelvis radiograph 08/20/[address] pelvis 05/02/2022 FINDINGS: Posterior fixation hardware is seen lumbar spine. There is a right medullary nail and left total hip arthroplasty. There is an acute fracture of the left inferior pubic ramus. There is a nondisplaced fracture of the left sacral wing adjacent to the sacroiliac joint. No joint effusion is seen. Mild soft tissue swelling is seen in the pelvis and left sacrum. IMPRESSION: Nondisplaced fracture of the left sacral wing and minimally displaced fracture of the left inferior pubic ramus. No hip fractures are seen. ACT 112: Negative or not required by law. Electronically signed by: Robert Duran M.D. 08/21/2022 8:[address] 08/20/22 20:49 CT hip LT wo con, CT pelvis wo con CLINICAL HISTORY: fall, hip pain TECHNIQUE: Multidetector row helical CT of the left hip and pelvis was performed without intravenous contrast. Coronal and sagittal reformations were obtained. Automated dose lowering techniques and/or adjustment according to patient size were utilized for this examination. Comparison: Comparison is made to pelvis radiograph 08/20/[address] pelvis 05/02/2022 FINDINGS: Posterior fixation hardware is seen lumbar spine. There is a right medullary nail and left total hip arthroplasty. There is an acute fracture of the left inferior pubic ramus. There is a nondisplaced fracture of the left sacral wing adjacent to the sacroiliac joint. No joint effusion is seen. Mild soft tissue swelling is seen in the pelvis and left sacrum.
[2022-08-21] MEDS: ARTIFICIAL TEARS OP SCH (10:04)
--- NOTE | 2022-08-21 16:42 | Hospitalist Progress Note ---
Date of Service August 21, 2022 Assessment & Plan (1) Complicated UTI (urinary tract infection): Plan: Complicated UTI H/O BPH, ESBL E. coli Recurrent UTIs Urine culture pending On ertapenem empirically Bladder scan as needed Continue finasteride, tamsulosin Fracture of left pelvis Secondary to mechanical fall, age-related osteoporosis Ambulatory dysfunction Secondary to Parkinson's disease Imaging studies reviewed Appreciate Orthopedic Input For precautions Pain control Partial weightbearing of the left lower extremity PT OT Will need follow-up with Dr. Foreman in 2 weeks upon discharge Parkinson's disease Mood Disorder Continue home meds Hypertension Stable Monitor DVT Px: Lovenox SQ Code Status Full code Disposition Will need SNF Admission and Anticipated Discharge Date Admission Date: August 21, 2022 Subjective Patient is seen and examined at bedside Poor historian States having left-sided hip pain with movement, any activity Also reports left-sided rib pain States having minimal dysuria No other complaints Review of Systems Review of Systems: All systems reviewed & are unremarkable except as noted in Subjective Physical Exam Physical Exam: Physical Exam: Vitals signs as noted above General Appearance: Thin, frail, chronically appearing, no apparent distress Head: normocephalic, Atraumatic Eyes: normal inspection, EOMI Neck: supple, Trachea midline Respiratory/Chest: Decreased breath sounds, CTA, No accessory muscle use Cardiovascular: S1, S2, No murmur Abdomen/GI:Soft, Non tender, Bowel sounds present, Left pelvic tender Extremities/Musculoskeletal:normal inspection, Trace edema Neurologic/Psych:AAOX2, grossly moves all extremities, slow to respond Skin: normal color, warm Results & Data Results & Data ([facility]) Vital Signs (Past 12 Hours) Vital Signs Temp Pulse Resp BP Pulse Ox O2 Del Method 08/21/22 14:58 37.2 C 69 18 145/82 H 96 Room Air 08/21/22 07:46 Room Air Laboratory Results Short CBC 08/20/22 08/21/22 Range/Units 22:50 08:36 WBC 12.48 H 10.17 (4.8-10.8) K/ul Hgb 14.4 12.9 L (14.0-18.0) g/dl Hct 43.0 38.5 L (40.1-51.0) % Plt Count 213 187 (130-400) K/uL BMP 08/20/22 08/21/22 22:50 08:36 Sodium 139 138 Potassium 4.2 3.9 Chloride 105 105 Carbon Dioxide 27 26 BUN 22 20 Creatinine 0.77 0.64 Glucose 92 96 Calcium 9.1 8.5 Cardiac Enzymes 08/20/22 Range/Units 22:50 Total Creatine Kinase 20 L (30-223) U/L Liver Function 08/20/22 Range/Units 22:50 Total Bilirubin 0.5 (0.2-1.0) mg/dl AST 12 L (13-39) U/L ALT 7 (7-52) U/L Alkaline Phosphatase 115 H (34-104) U/L Albumin 4.1 (3.4-5.0) gm/dl Urine 08/21/22 Range/Units 02:44 Urine Color Yellow Urine Appearance Slightly Cloudy (Clear) Urine pH 5.5 (4.5-7.5) Ur Specific [place] 1.025 (1.000-1.030) Urine Protein Trace H (Negative) Urine Glucose (UA) Negative (Negative)
[2022-08-22] MEDS: PANTOprazole 40 MG TAB PO SCH (05:40)
[2022-08-22 07:06] LABS: Hematocrit (blood only) 37.3 % (40.1-51.0); Hemoglobin 12.4 g/dl (14.0-18.0); Mean Corpuscular Hemoglobin 29.9 pg (25.0-34.0); Mean Corpuscular Hgb Conc 33.2 g/dL (32.0-36.0); Mean Corpuscular Volume 89.9 fL (80.0-100.0); Mean Platelet Volume 9.7 fL (9.4-12.4); Platelet Count 162 K/uL (130-400); RDW Standard Deviation 45.5 fL (36.4-46.3); Red Blood Count 4.15 M/uL (4.63-6.08); White Blood Count 9.15 K/ul (4.8-10.8)
[2022-08-22 07:41] LABS: BUN Creatinine Ratio 24.4 (10-20); Calcium 8.6 mg/dl (8.5-10.1); Creatinine Clr Calc Pharmacy 95.1 ml/min; Est GFR (African American) 102.3 ml/min; Est GFR (Non-African American) 88.3 ml/min; Potassium 3.8 mmol/L (3.5-5.1)
--- NOTE | 2022-08-22 09:16 | Hospitalist Progress Note ---
Date of Service August 22, 2022 Assessment & Plan (1) Complicated UTI (urinary tract infection): Plan: Complicated UTI H/O BPH, ESBL E. coli Recurrent UTIs Urine culture - Gram negat. bacilli On ertapenem empirically Bladder scan as needed Continue finasteride, tamsulosin Fracture of left pelvis Secondary to mechanical fall, age-related osteoporosis Ambulatory dysfunction Secondary to Parkinson's disease Imaging studies reviewed Appreciate Orthopedic Input For precautions Pain control Partial weightbearing of the left lower extremity PT OT Will need follow-up with Dr. Foreman in 2 weeks upon discharge Parkinson's disease Mood Disorder Continue home meds Hypertension Stable Monitor DVT Px: Lovenox SQ Code Status Full code Disposition Will need SNF Admission and Anticipated Discharge Date Admission Date: August 21, 2022 Subjective Patient seen in follow up of pelvic fx and UTI Poor historian, however reports that he had dysuria for 2 weeks No significant pain, pt appears comfortable Occasionally confused - has to be reminded that he's in the hospital previously reported left-sided hip pain with movement, any activity Denies fever, chills, chest pain, shortness of breath, abdominal pain, nausea or vomiting No other complaints Review of Systems Review of Systems: All systems reviewed & are unremarkable except as noted in Subjective Physical Exam Physical Exam: General Appearance: Thin, frail, chronically appearing, no apparent distress Head: normocephalic, Atraumatic Eyes: normal inspection, EOMI Neck: supple Respiratory/Chest: Decreased breath sounds, CTA, No accessory muscle use Cardiovascular: S1, S2, No murmur Abdomen/GI:Soft, Non tender, Bowel sounds present, Left pelvic tender : catheter placed Extremities/Musculoskeletal:normal inspection, Trace edema Neurologic/Psych:AAOX2, grossly moves all extremities, slow to respond Skin: normal color, warm Results & Data Results & Data ([facility]) Vital Signs (Past 12 Hours) Vital Signs Temp Pulse Resp BP Pulse Ox O2 Del Method 08/22/22 07:57 Room Air 08/22/22 07:14 36.4 C L 66 20 141/86 H 93 Room Air Laboratory Results 08/22/22 08/22/22 08/21/22 Range/Units 06:52 06:52 08:36 WBC 9.15 (4.8-10.8) K/ul RBC 4.15 L (4.63-6.08) M/uL Hgb 12.4 L (14.0-18.0) g/dl Hct 37.3 L (40.1-51.0) % MCV 89.9 (80.0-100.0) fL MCH 29.9 (25.0-34.0) pg MCHC 33.2 (32.0-36.0) g/dL RDW Std Deviation 45.5 (36.4-46.3) fL RDW Coeff of David 14.0 (11.5-14.5) % Plt Count 162 (130-400) K/uL MPV 9.7 (9.4-12.4) fL Sodium 137 138 (136-145) mmol/L Potassium 3.8 3.9 (3.5-5.1) mmol/L Chloride 105 105 (98-107) mmol/L Carbon Dioxide 26 26 (21-32) mmol/L Anion Gap 6 7 (3-11) BUN 19 20 (6-23) mg/dl Creatinine 0.78 0.64 (0.6-1.4) mg/dl Est Cr Clr Drug Dosing 95.1 116.0 ml/min Est GFR ( Amer) 102.3 111.0 ml/min Est GFR (Non-Af Amer) 88.3 95.8 ml/min BUN/Creatinine Ratio 24.4 H 31.3 H (10-20) Glucose 95 96 (70-99(Fasting)) mg/dl Calcium 8.6 8.5 (8.5-10.1) mg/dl Medications Administered Current Inpatient Medications Acetaminophen (Acetaminophen 325 Mg Tab) 650 mg PO Q4H PRN PRN Reason: Pain Stop: 09/20/22 03:39 Artificial Tears (Artificial Tears) 1 drops OP DAILY LISA Stop: 09/20/22 08:59 Last Admin: 08/21/22 10:04 Dose: 1 drops Brimonidine Tartrate (Brimonidine Tartrate 0.2% 5ml) 1 drops OPB Q12 LISA Stop: 09/20/22 08:59 Last Admin: 08/21/22 20:31 Dose: 1 drops Carbidopa/Levodopa (Carbidopa/Levodopa 25/100mg Tab) 1 tab PO TID@0800,1500,2000 LISA Stop: 09/20/22 03:39 Last Admin: 08/21/22 20:30 Dose: 1 tab Docusate Sodium (Docusate Sodium 100 Mg Cap) 100 mg PO BID [facility] Stop: 09/20/22 08:59 Last Admin: 08/21/22 20:30 Dose: 100 mg Dorzolamide/Timolol (Dorzolamide/Timolol 22.3/6.8mg/Ml 10 Ml Btl) 1 drops OPB BID@0800,2000 [facility] Stop: 09/20/22 03:39 Last Admin: 08/21/22 20:30 Dose: 1 drops Duloxetine HCl (Duloxetine Hcl 20 Mg Cap) 20 mg PO BID [facility] Stop: 09/20/22 03:39 Last Admin: 08/21/22 20:30 Dose: 20 mg Enoxaparin Sodium (Enoxaparin Inj 40 Mg/0.4 Ml Syr) 40 mg SQ QAM [facility] Stop: 09/20/22 08:59 Last Admin: 08/21/22 08:53 Dose: 40 mg Finasteride (Finasteride 5 Mg Tab) 5 mg PO QAM [facility] Stop: 09/20/22 08:59 Last Admin: 08/21/22 08:51 Dose: 5 mg Ertapenem 1,000 mg/ Syringe 10 mls @ 2 mls/min IV Q24H [facility] Stop: 08/31/22 07:59 Last Admin: 08/21/22 08:31 Dose: 2 mls/min Ketorolac Tromethamine (Ketorolac Tromethamine 15 Mg/Ml Vial) 15 mg IV Q6H PRN PRN Reason: Pain Stop: 08/26/22 01:38 Last Admin: 08/22/22 04:37 Dose: 15 mg Loratadine (Loratadine 10 Mg Tab) 10 mg PO QAM [facility] Stop: 09/20/22 08:59 Last Admin: 08/21/22 08:52 Dose: 10 mg Oxycodone HCl (Oxycodone Hcl Ir 5 Mg Tab (Immediate Release)) 5 mg PO Q4H PRN PRN Reason: Pain Stop: 09/04/22 03:39 Last Admin: 08/21/22 22:03 Dose: 5 mg Pantoprazole Sodium (Pantoprazole 40 Mg Tab) 40 mg PO DAILYBB [facility] Stop: 09/20/22 06:29 Last Admin: 08/22/22 05:40 Dose: 40 mg Sertraline HCl (Sertraline Hcl 100 Mg Tablet) 100 mg PO QAM [facility] Stop: 09/20/22 08:59 Last Admin: 08/21/22 08:52 Dose: 100 mg Tamsulosin HCl (Tamsulosin Hcl 0.4 Mg Cap) 0.4 mg PO [facility] Stop: 09/20/22 03:39 Last Admin: 08/21/22 05:54 Dose: 0.4 mg
[2022-08-22] MEDS: ERTAPENEM SODIUM 1,000 MG in SYRINGE 0 ML IV SCH (09:35)
[2022-08-22] MEDS: ENOXAPARIN INJ 40 MG/0.4 ML SYR SQ SCH (09:36)
[2022-08-22] MEDS: BRIMONIDINE TARTRATE 0.2% 5ML OPB SCH ×2 (09:37→20:48)
[2022-08-22] MEDS: ARTIFICIAL TEARS OP SCH (09:39)
[2022-08-22] MEDS: LORATADINE 10 MG TAB PO SCH (09:39)
[2022-08-22] MEDS: DULoxetine HCL 20 MG CAP PO SCH ×2 (09:40→20:49)
[2022-08-22] MEDS: CARBIDOPA/LEVODOPA 25/100MG TAB PO SCH ×3 (09:40→20:49)
[2022-08-22] MEDS: DOCUSATE SODIUM 100 MG CAP PO SCH ×2 (09:40→20:48)
[2022-08-22] MEDS: SERTRALINE HCL 100 MG TABLET PO SCH (09:41)
[2022-08-22] MEDS: FINASTERIDE 5 MG TAB PO SCH (09:41)
[2022-08-22] MEDS: DORZOLAMIDE/TIMOLOL 22.3/6.8MG/ML 10 ML BTL OPB SCH ×2 (09:42→20:48)
[2022-08-22] MEDS: TAMSULOSIN HCL 0.4 MG CAP PO SCH (20:48)
[2022-08-23] MEDS: PANTOprazole 40 MG TAB PO SCH (06:24)
[2022-08-23 08:31] LABS: Hematocrit (blood only) 38.4 % (40.1-51.0); Hemoglobin 12.7 g/dl (14.0-18.0); Mean Corpuscular Hemoglobin 29.9 pg (25.0-34.0); Mean Corpuscular Hgb Conc 33.1 g/dL (32.0-36.0); Mean Corpuscular Volume 90.4 fL (80.0-100.0); Mean Platelet Volume 10.1 fL (9.4-12.4); Platelet Count 194 K/uL (130-400); RDW Coefficient of Variation 13.9 % (11.5-14.5); RDW Standard Deviation 45.9 fL (36.4-46.3); Red Blood Count 4.25 M/uL (4.63-6.08); White Blood Count 9.15 K/ul (4.8-10.8)
[2022-08-23] MEDS: DOCUSATE SODIUM 100 MG CAP PO SCH ×2 (08:38→21:19)
[2022-08-23] MEDS: ACETAMINOPHEN 325 MG TAB PO PRN ×2 (08:39→22:03)
[2022-08-23] MEDS: ENOXAPARIN INJ 40 MG/0.4 ML SYR SQ SCH (08:39)
[2022-08-23] MEDS: BRIMONIDINE TARTRATE 0.2% 5ML OPB SCH ×2 (08:40→21:18)
[2022-08-23] MEDS: ARTIFICIAL TEARS OP SCH (08:40)
[2022-08-23] MEDS: DORZOLAMIDE/TIMOLOL 22.3/6.8MG/ML 10 ML BTL OPB SCH ×2 (08:40→21:18)
[2022-08-23] MEDS: FINASTERIDE 5 MG TAB PO SCH (08:41)
[2022-08-23] MEDS: CARBIDOPA/LEVODOPA 25/100MG TAB PO SCH ×3 (08:41→21:19)
[2022-08-23] MEDS: DULoxetine HCL 20 MG CAP PO SCH ×2 (08:41→21:19)
[2022-08-23] MEDS: SERTRALINE HCL 100 MG TABLET PO SCH (08:42)
[2022-08-23] MEDS: LORATADINE 10 MG TAB PO SCH (08:42)
[2022-08-23] MEDS: ERTAPENEM SODIUM 1,000 MG in SYRINGE 0 ML IV SCH (08:51)
[2022-08-23 09:13] LABS: Calcium 8.7 mg/dl (8.5-10.1); Creatinine Clr Calc Pharmacy 104.5 ml/min; Est GFR (African American) 106.4 ml/min; Est GFR (Non-African American) 91.8 ml/min; Phosphorus 3.2 mg/dl (2.5-4.9); Potassium 4.3 mmol/L (3.5-5.1)
--- NOTE | 2022-08-23 16:26 | Hospitalist Progress Note ---
Date of Service August 23, 2022 Assessment & Plan (1) Complicated UTI (urinary tract infection): Plan: Complicated UTI H/O BPH, ESBL E. coli Recurrent UTIs Urine culture -growing ESBL On day 4 of ertapenem and will continue for 10-day course Ultrasound-guided peripheral line placement to prepare for discharge. Appreciate case management assistance for return to personal [facility] with home health Bladder scan as needed Continue finasteride, tamsulosin Fracture of left pelvis Secondary to mechanical fall, age-related osteoporosis Ambulatory dysfunction Secondary to Parkinson's disease Imaging studies reviewed Appreciate Orthopedic Input For precautions Pain control Partial weightbearing of the left lower extremity PT OT recommending SNF initially but patient's baseline activity is WC bound with 1-2 assist transfers, per Leslie Will need follow-up with Dr. Foreman in 2 weeks upon discharge Parkinson's disease Mood Disorder Continue home meds Hypertension Stable Monitor DVT Px: Lovenox SQ Code Status Full code Disposition [facility] with HH for IV abx Admission and Anticipated Discharge Date Admission Date: August 21, 2022 Supervising Physician Co-Signing Physician Notes Pt seen and examined by me, care coordinated w/ Evans Marquez PA-C, pls refer to her note above for further detail. Pt admitted w/ pelvic fx and UTI, hx of ESBL E. coli UTI. Current cultx again positive for ESBL E. coli UTI. Pt was started on Ertapenem on admission. Pelvic pain seems to be well controlled. No fevers chills chest pain shortness of breath. No abdominal pain, nausea vomiting ,overall comfortable. Breath sounds clear. Heart sounds regular. Abdomen soft nontender nondistended. Bush catheter is placed. Plan to discharge to SNF with H&H for IV antibiotics. MD Lidya Subjective Patient seen in follow up of pelvic fx and UTI. Poor historian, however reports that he had dysuria for 2 weeks. Patient initially lethargic on morning evaluation but when reevaluated in the afternoon, patient is able to communicate that he was comfortable and without pain. Previously reported left-sided hip pain with movement and any activity but is comfortable at rest. Denies fever, chills, chest pain, shortness of breath, abdominal pain, nausea or vomiting. No other complaints Review of Systems Review of Systems: At least ten systems reviewed and negative except as noted in the HPI. Physical Exam Physical Exam: General Appearance: Thin, frail, chronically appearing, no apparent distress Head: normocephalic, Atraumatic Eyes: normal inspection, EOMI Neck: supple Respiratory/Chest: Decreased breath sounds, clear to auscultation, no accessory muscle use Cardiovascular: S1, S2, No murmur Abdomen/GI:Soft, Non tender, Bowel sounds present, Left pelvic area tender : + Bush catheter Extremities/Musculoskeletal:normal inspection, Trace edema Neurologic/Psych:AAOX2, grossly moves all extremities, slow to respond Skin: normal color, warm Results & Data Results & Data ([facility]) Vital Signs (Past 12 Hours) Vital Signs Temp Pulse Resp BP Pulse Ox O2 Del Method 08/23/22 15:47 37.2 C 65 18 115/63 91 Room Air 08/23/22 08:10 Room Air 08/23/22 07:56 36.6 C 74 18 157/89 H 94 Room Air Laboratory Results Short CBC 08/23/22 Range/Units 07:50 WBC 9.15 (4.8-10.8) K/ul Hgb 12.7 L (14.0-18.0) g/dl Hct 38.4 L (40.1-51.0) % Plt Count 194 (130-400) K/uL BMP 08/23/22 07:50 Sodium 138 Potassium 4.3 Chloride 105 Carbon Dioxide 27 BUN 22 Creatinine 0.71 Glucose 93 Calcium 8.7 Diagnostic Findings Femur X-Ray 08/20/22 20:08 XR pelvis 1-2V routine, XR femur LT 2V routine HISTORY: 76 years-old Male fall hip pain acute pelvic and left hip pain status post fall COMPARISON: CT abdomen and pelvis 05/02/2022 TECHNIQUE: AP view the pelvis with 2 views of the left femur FINDINGS: PELVIS: Left hip total joint arthroplasty. Heterotopic ossifications surrounding the left hip are again noted. ORIF changes of the right proximal femur. Equivocal femoral head avascular necrosis. No acute fracture or dislocation identified. Study is limited secondary to positioning. Fusion hardware with discectomy changes of the lower lumbar spine. LEFT FEMUR: No acute fracture or dislocation. Arterial calcifications. Unremarkable appearance of the left hip total joint arthroplasty. Osteoarthritis of the knee. IMPRESSION: 1. No acute fracture or dislocation identified. 2. Unremarkable appearance of the left hip total joint arthroplasty. 3. Limited dislocation of the left pelvic ring secondary to positioning. ACT 112: Negative or not required by law. The above report was generated using voice recognition software. It may contain grammatical, syntax or spelling errors. Electronically signed by: Valente Jung M.D. 08/20/2022 8:51 PM Pelvis X-Ray 08/20/22 20:08 XR pelvis 1-2V routine, XR femur LT 2V routine HISTORY: 76 years-old Male fall hip pain acute pelvic and left hip pain status post fall COMPARISON: CT abdomen and pelvis 05/02/2022 TECHNIQUE: AP view the pelvis with 2 views of the left femur FINDINGS: PELVIS: Left hip total joint arthroplasty. Heterotopic ossifications surrounding the left hip are again noted. ORIF changes of the right proximal femur. Equivocal femoral head avascular necrosis. No acute fracture or dislocation identified. Study is limited secondary to positioning. Fusion hardware with discectomy changes of the lower lumbar spine. LEFT FEMUR: No acute fracture or dislocation. Arterial calcifications. Unremarkable appearance of the left hip total joint arthroplasty. Osteoarthritis of the knee. IMPRESSION: 1. No acute fracture or dislocation identified. 2. Unremarkable appearance of the left hip total joint arthroplasty. 3. Limited dislocation of the left pelvic ring secondary to positioning. ACT 112: Negative or not required by law. The above report was generated using voice recognition software. It may contain grammatical, syntax or spelling errors. Electronically signed by: Valente Jung M.D. 08/20/2022 8:[address] 08/20/22 20:49 CT hip LT wo con, CT pelvis wo con CLINICAL HISTORY: fall, hip pain TECHNIQUE: Multidetector row helical CT of the left hip and pelvis was performed without intravenous contrast. Coronal and sagittal reformations were obtained. Automated dose lowering techniques and/or adjustment according to patient size were utilized for this examination. Comparison: Comparison is made to pelvis radiograph 08/20/[address] pelvis 05/02/2022 FINDINGS: Posterior fixation hardware is seen lumbar spine. There is a right medullary nail and left total hip arthroplasty. There is an acute fracture of the left inferior pubic ramus. There is a nondisplaced fracture of the left sacral wing adjacent to the sacroiliac joint. No joint effusion is seen. Mild soft tissue swelling is seen in the pelvis and left sacrum. IMPRESSION: Nondisplaced fracture of the left sacral wing and minimally displaced fracture of the left inferior pubic ramus. No hip fractures are seen. ACT 112: Negative or not required by law. Electronically signed by: Robert Duran M.D. 08/21/2022 8:[address] 08/20/22 20:49 CT hip LT wo con, CT pelvis wo con CLINICAL HISTORY: fall, hip pain TECHNIQUE: Multidetector row helical CT of the left hip and pelvis was performed without intravenous contrast. Coronal and sagittal reformations were obtained. Automated dose lowering techniques and/or adjustment according to patient size were utilized for this examination. Comparison: Comparison is made to pelvis radiograph 08/20/[address] pelvis 05/02/2022 FINDINGS: Posterior fixation hardware is seen lumbar spine. There is a right medullary nail and left total hip arthroplasty. There is an acute fracture of the left inferior pubic ramus. There is a nondisplaced fracture of the left sacral wing adjacent to the sacroiliac joint. No joint effusion is seen. Mild soft tissue swelling is seen in the pelvis and left sacrum.
[2022-08-23] MEDS: TAMSULOSIN HCL 0.4 MG CAP PO SCH (21:19)
[2022-08-24] MEDS: PANTOprazole 40 MG TAB PO SCH (05:56)
[2022-08-24 06:46] LABS: Hematocrit (blood only) 34.2 % (40.1-51.0); Hemoglobin 11.3 g/dl (14.0-18.0); Mean Corpuscular Volume 90.7 fL (80.0-100.0); Mean Platelet Volume 10.2 fL (9.4-12.4); Platelet Count 181 K/uL (130-400); RDW Coefficient of Variation 13.7 % (11.5-14.5); RDW Standard Deviation 45.2 fL (36.4-46.3); Red Blood Count 3.77 M/uL (4.63-6.08); White Blood Count 6.85 K/ul (4.8-10.8)
[2022-08-24 07:11] LABS: BUN Creatinine Ratio 36.7 (10-20); Calcium 8.4 mg/dl (8.5-10.1); Creatinine Clr Calc Pharmacy 123.7 ml/min; Est GFR (Non-African American) 98.4 ml/min; Magnesium 1.9 mg/dl (1.7-2.4); Phosphorus 3.5 mg/dl (2.5-4.9); Potassium 3.6 mmol/L (3.5-5.1)
[2022-08-24] MEDS: SERTRALINE HCL 100 MG TABLET PO SCH (09:14)
[2022-08-24] MEDS: DORZOLAMIDE/TIMOLOL 22.3/6.8MG/ML 10 ML BTL OPB SCH ×2 (09:14→19:57)
[2022-08-24] MEDS: ARTIFICIAL TEARS OP SCH (09:15)
[2022-08-24] MEDS: BRIMONIDINE TARTRATE 0.2% 5ML OPB SCH ×2 (09:15→19:57)
[2022-08-24] MEDS: DOCUSATE SODIUM 100 MG CAP PO SCH ×2 (09:15→19:57)
[2022-08-24] MEDS: ENOXAPARIN INJ 40 MG/0.4 ML SYR SQ SCH (09:16)
[2022-08-24] MEDS: CARBIDOPA/LEVODOPA 25/100MG TAB PO SCH ×3 (09:18→19:56)
[2022-08-24] MEDS: DULoxetine HCL 20 MG CAP PO SCH ×2 (09:18→19:56)
[2022-08-24] MEDS: LORATADINE 10 MG TAB PO SCH (09:18)
[2022-08-24] MEDS: FINASTERIDE 5 MG TAB PO SCH (09:18)
[2022-08-24] MEDS: ERTAPENEM SODIUM 1,000 MG in SYRINGE 0 ML IV SCH (09:28)
--- NOTE | 2022-08-24 15:43 | Hospitalist Progress Note ---
Date of Service August 24, 2022 Assessment & Plan (1) Complicated UTI (urinary tract infection): Plan: Complicated UTI H/O BPH, ESBL E. coli Recurrent UTIs Urine culture -growing ESBL On day 5 of ertapenem and will continue for 10-day course (completing on 08/29) Ultrasound-guided peripheral line placed to prepare for discharge. Appreciate case management assistance for return to personal [facility] with home health - unable to find HH today per CM Bladder scan as needed Continue finasteride, tamsulosin Fracture of left pelvis Secondary to mechanical fall, age-related osteoporosis Ambulatory dysfunction Secondary to Parkinson's disease Imaging studies reviewed Appreciate Orthopedic Input For precautions Pain control Partial weightbearing of the left lower extremity PT OT recommending SNF initially but patient's baseline activity is WC bound with 1-2 assist transfers, per Leslie Will need follow-up with Dr. Foreman in 2 weeks upon discharge Parkinson's disease Mood Disorder Continue home meds Hypertension Stable Monitor DVT Px: Lovenox SQ Code Status Full code Disposition [facility] with HH for IV abx Admission and Anticipated Discharge Date Admission Date: August 21, 2022 Supervising Physician Co-Signing Physician Notes Pt seen and examined by me, care coordinated w/ Evans Marquez PA-C, pls refer to her note above for further detail. Pt admitted w/ pelvic fx and UTI, hx of ESBL E. coli UTI. Current cultx again positive for ESBL E. coli UTI. Pt was started on Ertapenem on admission. Pelvic pain seems to be well controlled. No fevers chills chest pain shortness of breath. No abdominal pain, nausea vomiting ,overall comfortable. Breath sounds clear. Heart sounds regular. Abdomen soft nontender nondistended. Bush catheter is placed. Plan to discharge to SNF with H&H for IV antibiotics, however no home health services available at this time. CM involved. MD Lidya Subjective Patient seen in follow up of pelvic fx and UTI. Poor historian, however reports that he had dysuria for 2 weeks. Mentating much more clearly this morning and interviewed while eating breakfast. Slept well last night and has no complaints currently. Does have some discomfort and hip pain with movement but is comfortable at rest. Denies fever, chills, chest pain, shortness of breath, abdominal pain, nausea or vomiting. Review of Systems Review of Systems: At least ten systems reviewed and negative except as noted in the HPI. Physical Exam Physical Exam: General Appearance: Thin, frail, chronically appearing, no apparent distress Head: normocephalic, Atraumatic Eyes: normal inspection, EOMI Neck: supple Respiratory/Chest: Decreased breath sounds, clear to auscultation, no accessory muscle use Cardiovascular: S1, S2, No murmur Abdomen/GI:Soft, Non tender, Bowel sounds present, Left pelvic area tender : + condom catheter Extremities/Musculoskeletal:normal inspection, Trace edema Neurologic/Psych:AAOX2, grossly moves all extremities, slow to respond Skin: normal color, warm Results & Data Results & Data ([facility]) Vital Signs (Past 12 Hours) Vital Signs Temp Pulse Resp BP BP Pulse Ox O2 Del Method 08/24/22 15:09 36.7 C 70 16 115/76 97 Room Air 08/24/22 07:45 Room Air 08/24/22 07:40 36.6 C 64 16 145/80 H 95 Room Air Laboratory Results Short CBC 08/24/22 Range/Units 05:51 WBC 6.85 (4.8-10.8) K/ul Hgb 11.3 L (14.0-18.0) g/dl Hct 34.2 L (40.1-51.0) % Plt Count 181 (130-400) K/uL BMP 08/24/22 05:51 Sodium 139 Potassium 3.6 Chloride 108 H Carbon Dioxide 25 BUN 22 Creatinine 0.60 Glucose 89 Calcium 8.4 L Diagnostic Findings Femur X-Ray 08/20/22 20:08 XR pelvis 1-2V routine, XR femur LT 2V routine HISTORY: 76 years-old Male fall hip pain acute pelvic and left hip pain status post fall COMPARISON: CT abdomen and pelvis 05/02/2022 TECHNIQUE: AP view the pelvis with 2 views of the left femur FINDINGS: PELVIS: Left hip total joint arthroplasty. Heterotopic ossifications surrounding the left hip are again noted. ORIF changes of the right proximal femur. Equivocal femoral head avascular necrosis. No acute fracture or dislocation identified. Study is limited secondary to positioning. Fusion hardware with discectomy changes of the lower lumbar spine. LEFT FEMUR: No acute fracture or dislocation. Arterial calcifications. Unremarkable appearance of the left hip total joint arthroplasty. Osteoarthritis of the knee. IMPRESSION: 1. No acute fracture or dislocation identified. 2. Unremarkable appearance of the left hip total joint arthroplasty. 3. Limited dislocation of the left pelvic ring secondary to positioning. ACT 112: Negative or not required by law. The above report was generated using voice recognition software. It may contain grammatical, syntax or spelling errors. Electronically signed by: Valente Jung M.D. 08/20/2022 8:51 PM Pelvis X-Ray 08/20/22 20:08 XR pelvis 1-2V routine, XR femur LT 2V routine HISTORY: 76 years-old Male fall hip pain acute pelvic and left hip pain status post fall COMPARISON: CT abdomen and pelvis 05/02/2022 TECHNIQUE: AP view the pelvis with 2 views of the left femur FINDINGS: PELVIS: Left hip total joint arthroplasty. Heterotopic ossifications surrounding the left hip are again noted. ORIF changes of the right proximal femur. Equivocal femoral head avascular necrosis. No acute fracture or dislocation identified. Study is limited secondary to positioning. Fusion hardware with discectomy changes of the lower lumbar spine. LEFT FEMUR: No acute fracture or dislocation. Arterial calcifications. Unremarkable appearance of the left hip total joint arthroplasty. Osteoarthritis of the knee. IMPRESSION: 1. No acute fracture or dislocation identified. 2. Unremarkable appearance of the left hip total joint arthroplasty. 3. Limited dislocation of the left pelvic ring secondary to positioning. ACT 112: Negative or not required by law. The above report was generated using voice recognition software. It may contain grammatical, syntax or spelling errors. Electronically signed by: Valente Jung M.D. 08/20/2022 8:[address] 08/20/22 20:49 CT hip LT wo con, CT pelvis wo con CLINICAL HISTORY: fall, hip pain TECHNIQUE: Multidetector row helical CT of the left hip and pelvis was performed without intravenous contrast. Coronal and sagittal reformations were obtained. Automated dose lowering techniques and/or adjustment according to patient size were utilized for this examination. Comparison: Comparison is made to pelvis radiograph 08/20/[address] pelvis 05/02/2022 FINDINGS: Posterior fixation hardware is seen lumbar spine. There is a right medullary nail and left total hip arthroplasty. There is an acute fracture of the left inferior pubic ramus. There is a nondisplaced fracture of the left sacral wing adjacent to the sacroiliac joint. No joint effusion is seen. Mild soft tissue swelling is seen in the pelvis and left sacrum. IMPRESSION: Nondisplaced fracture of the left sacral wing and minimally displaced fracture of the left inferior pubic ramus. No hip fractures are seen. ACT 112: Negative or not required by law. Electronically signed by: Robert Duran M.D. 08/21/2022 8:[address] 08/20/22 20:49 CT hip LT wo con, CT pelvis wo con CLINICAL HISTORY: fall, hip pain TECHNIQUE: Multidetector row helical CT of the left hip and pelvis was performed without intravenous contrast. Coronal and sagittal reformations were obtained. Automated dose lowering techniques and/or adjustment according to patient size were utilized for this examination. Comparison: Comparison is made to pelvis radiograph 08/20/[address] pelvis 05/02/2022 FINDINGS: Posterior fixation hardware is seen lumbar spine. There is a right medullary nail and left total hip arthroplasty. There is an acute fracture of the left inferior pubic ramus. There is a nondisplaced fracture of the left sacral wing adjacent to the sacroiliac joint. No joint effusion is seen. Mild soft tissue swelling is seen in the pelvis and left sacrum.
[2022-08-24] MEDS: TAMSULOSIN HCL 0.4 MG CAP PO SCH (19:56)
[2022-08-25] MEDS: ACETAMINOPHEN 325 MG TAB PO PRN (03:04)
--- NOTE | 2022-08-25 08:15 | Hospitalist Progress Note ---
Date of Service August 25, 2022 Assessment & Plan (1) Complicated UTI (urinary tract infection): Plan: Complicated UTI H/O BPH, ESBL E. coli Recurrent UTIs Urine culture -growing ESBL On day 5 of ertapenem and will continue for 10-day course (completing on 08/29) Ultrasound-guided peripheral line placed to prepare for discharge. Appreciate case management assistance for return to personal [facility] with home health - unable to find HH today per CM Bladder scan as needed Continue finasteride, tamsulosin Fracture of left pelvis Secondary to mechanical fall, age-related osteoporosis Ambulatory dysfunction Secondary to Parkinson's disease Imaging studies reviewed Appreciate Orthopedic Input For precautions Pain control Partial weightbearing of the left lower extremity PT OT recommending SNF initially but patient's baseline activity is WC bound with 1-2 assist transfers, per Leslie Will need follow-up with Dr. Foreman in 2 weeks upon discharge Parkinson's disease Mood Disorder Continue home meds Hypertension Stable Monitor DVT Px: Lovenox SQ Code Status Full code Disposition [facility] with HH for IV abx Admission and Anticipated Discharge Date Admission Date: August 21, 2022 Subjective Patient seen in follow up of pelvic fx and UTI Poor historian, however reports that he had dysuria for 2 weeks No significant pain, pt appears comfortable Denies fever, chills, chest pain, shortness of breath, abdominal pain, nausea or vomiting No other complaints Review of Systems Review of Systems: All systems reviewed & are unremarkable except as noted in Subjective Physical Exam Physical Exam: General Appearance: Thin, frail, chronically appearing, no apparent distress Head: normocephalic, Atraumatic Eyes: normal inspection, EOMI Neck: supple Respiratory/Chest: Decreased breath sounds, CTA, No accessory muscle use Cardiovascular: S1, S2, No murmur Abdomen/GI:Soft, Non tender, Bowel sounds present, Left pelvic tender : catheter placed Extremities/Musculoskeletal:normal inspection, Trace edema Neurologic/Psych:AAOX2, grossly moves all extremities, slow to respond Skin: normal color, warm Results & Data Results & Data ([facility]) Vital Signs (Past 12 Hours) Vital Signs Temp Pulse Resp BP Pulse Ox O2 Del Method 08/25/22 07:43 37 C 65 16 129/84 94 Room Air 08/24/22 22:11 37.0 C 70 16 132/77 94 Room Air Medications Administered Current Inpatient Medications Acetaminophen (Acetaminophen 325 Mg Tab) 650 mg PO Q4H PRN PRN Reason: Pain Stop: 09/20/22 03:39 Last Admin: 08/25/22 03:04 Dose: 650 mg Artificial Tears (Artificial Tears) 1 drops OP DAILY LISA Stop: 09/20/22 08:59 Last Admin: 08/24/22 09:15 Dose: 1 drops Brimonidine Tartrate (Brimonidine Tartrate 0.2% 5ml) 1 drops OPB Q12 LISA Stop: 09/20/22 08:59 Last Admin: 08/24/22 19:57 Dose: 1 drops Carbidopa/Levodopa (Carbidopa/Levodopa 25/100mg Tab) 1 tab PO TID@0800,1500,2000 LISA Stop: 09/20/22 03:39 Last Admin: 08/24/22 19:56 Dose: 1 tab Docusate Sodium (Docusate Sodium 100 Mg Cap) 100 mg PO BID LISA Stop: 09/20/22 08:59 Last Admin: 08/24/22 19:57 Dose: Not Given Dorzolamide/Timolol (Dorzolamide/Timolol 22.3/6.8mg/Ml 10 Ml Btl) 1 drops OPB BID@0800,2000 LISA Stop: 09/20/22 03:39 Last Admin: 08/24/22 19:57 Dose: 1 drops Duloxetine HCl (Duloxetine Hcl 20 Mg Cap) 20 mg PO BID LISA Stop: 09/20/22 03:39 Last Admin: 08/24/22 19:56 Dose: 20 mg Enoxaparin Sodium (Enoxaparin Inj 40 Mg/0.4 Ml Syr) 40 mg SQ QAM [facility]ISA Stop: 09/20/22 08:59 Last Admin: 08/24/22 09:16 Dose: 40 mg Finasteride (Finasteride 5 Mg Tab) 5 mg PO QAM [facility] Stop: 09/20/22 08:59 Last Admin: 08/24/22 09:18 Dose: 5 mg Ertapenem 1,000 mg/ Syringe 10 mls @ 2 mls/min IV Q24H LISA Stop: 08/31/22 07:59 Last Admin: 08/24/22 09:28 Dose: 2 mls/min Ketorolac Tromethamine (Ketorolac Tromethamine 15 Mg/Ml Vial) 15 mg IV Q6H PRN PRN Reason: Pain Stop: 08/26/22 01:38 Last Admin: 08/22/22 04:37 Dose: 15 mg Loratadine (Loratadine 10 Mg Tab) 10 mg PO QAM [facility] Stop: 09/20/22 08:59 Last Admin: 08/24/22 09:18 Dose: 10 mg Oxycodone HCl (Oxycodone Hcl Ir 5 Mg Tab (Immediate Release)) 5 mg PO Q4H PRN PRN Reason: Pain Stop: 09/04/22 03:39 Last Admin: 08/21/22 22:03 Dose: 5 mg Pantoprazole Sodium (Pantoprazole 40 Mg Tab) 40 mg PO DAILYBB [facility] Stop: 09/20/22 06:29 Last Admin: 08/24/22 05:56 Dose: 40 mg Sertraline HCl (Sertraline Hcl 100 Mg Tablet) [facility] [place] Stop: 09/20/22 08:59 Last Admin: 08/24/22 09:14 Dose: 100 mg Tamsulosin HCl (Tamsulosin Hcl 0.4 Mg Cap) 0.4 mg PO [facility] Stop: 09/20/22 03:39 Last Admin: 08/24/22 19:56 Dose: 0.4 mg
[2022-08-25] MEDS: PANTOprazole 40 MG TAB PO SCH (08:25)
[2022-08-25] MEDS: DULoxetine HCL 20 MG CAP PO SCH ×2 (08:25→20:16)
[2022-08-25] MEDS: CARBIDOPA/LEVODOPA 25/100MG TAB PO SCH ×3 (08:25→20:15)
[2022-08-25] MEDS: DOCUSATE SODIUM 100 MG CAP PO SCH ×2 (08:25→20:15)
[2022-08-25] MEDS: FINASTERIDE 5 MG TAB PO SCH (08:25)
[2022-08-25] MEDS: SERTRALINE HCL 100 MG TABLET PO SCH (08:25)
[2022-08-25] MEDS: LORATADINE 10 MG TAB PO SCH (08:26)
[2022-08-25] MEDS: BRIMONIDINE TARTRATE 0.2% 5ML OPB SCH ×2 (08:26→20:14)
[2022-08-25] MEDS: ARTIFICIAL TEARS OP SCH (08:26)
[2022-08-25] MEDS: ENOXAPARIN INJ 40 MG/0.4 ML SYR SQ SCH (08:26)
[2022-08-25] MEDS: DORZOLAMIDE/TIMOLOL 22.3/6.8MG/ML 10 ML BTL OPB SCH ×2 (08:26→20:14)
[2022-08-25] MEDS: ERTAPENEM SODIUM 1,000 MG in SYRINGE 0 ML IV SCH (08:26)
[2022-08-25] MEDS: TAMSULOSIN HCL 0.4 MG CAP PO SCH (20:15)
[2022-08-26] MEDS: PANTOprazole 40 MG TAB PO SCH (05:30)
[2022-08-26 07:40] LABS: Hematocrit (blood only) 35.6 % (40.1-51.0); Hemoglobin 11.8 g/dl (14.0-18.0); Mean Corpuscular Hemoglobin 29.9 pg (25.0-34.0); Mean Corpuscular Hgb Conc 33.1 g/dL (32.0-36.0); Mean Corpuscular Volume 90.4 fL (80.0-100.0); Mean Platelet Volume 9.6 fL (9.4-12.4); Platelet Count 180 K/uL (130-400); RDW Coefficient of Variation 13.5 % (11.5-14.5); RDW Standard Deviation 44.6 fL (36.4-46.3); Red Blood Count 3.94 M/uL (4.63-6.08); White Blood Count 6.86 K/ul (4.8-10.8)
[2022-08-26] MEDS: ACETAMINOPHEN 325 MG TAB PO PRN (07:56)
[2022-08-26] MEDS: LORATADINE 10 MG TAB PO SCH (07:56)
[2022-08-26] MEDS: FINASTERIDE 5 MG TAB PO SCH (07:57)
[2022-08-26] MEDS: CARBIDOPA/LEVODOPA 25/100MG TAB PO SCH ×3 (07:57→20:35)
[2022-08-26] MEDS: DOCUSATE SODIUM 100 MG CAP PO SCH ×2 (07:57→20:32)
[2022-08-26] MEDS: DULoxetine HCL 20 MG CAP PO SCH ×2 (07:57→20:34)
[2022-08-26] MEDS: SERTRALINE HCL 100 MG TABLET PO SCH (07:57)
[2022-08-26] MEDS: ENOXAPARIN INJ 40 MG/0.4 ML SYR SQ SCH (07:58)
[2022-08-26] MEDS: ARTIFICIAL TEARS OP SCH (07:58)
[2022-08-26] MEDS: BRIMONIDINE TARTRATE 0.2% 5ML OPB SCH ×2 (07:58→20:32)
[2022-08-26] MEDS: ERTAPENEM SODIUM 1,000 MG in SYRINGE 0 ML IV SCH (07:58)
[2022-08-26] MEDS: DORZOLAMIDE/TIMOLOL 22.3/6.8MG/ML 10 ML BTL OPB SCH ×2 (07:58→20:31)
[2022-08-26 08:09] LABS: BUN Creatinine Ratio 33.3 (10-20); Calcium 8.3 mg/dl (8.5-10.1); Creatinine Clr Calc Pharmacy 130.2 ml/min; Est GFR (African American) 116.4 ml/min; Est GFR (Non-African American) 100.4 ml/min; Magnesium 1.9 mg/dl (1.7-2.4); Phosphorus 3.6 mg/dl (2.5-4.9); Potassium 3.7 mmol/L (3.5-5.1)
--- NOTE | 2022-08-26 12:15 | Hospitalist Progress Note ---
Date of Service August 26, 2022 Assessment & Plan (1) Complicated UTI (urinary tract infection): Plan: Complicated UTI H/O BPH, ESBL E. coli Recurrent UTIs Urine culture -growing ESBL On ertapenem and will continue for 10-day course (completing on 08/29) Ultrasound-guided peripheral line placed to prepare for discharge. Appreciate case management assistance for return to personal halfway with home health - unable to find HH per CM Bladder scan as needed Continue finasteride, tamsulosin Fracture of left pelvis Secondary to mechanical fall, age-related osteoporosis Ambulatory dysfunction Secondary to Parkinson's disease Imaging studies reviewed Appreciate Orthopedic Input For precautions Pain control Partial weightbearing of the left lower extremity PT OT recommending SNF initially but patient's baseline activity is WC bound with 1-2 assist transfers, per Leslie Will need follow-up with Dr. Foreman in 2 weeks upon discharge Parkinson's disease Mood Disorder Continue home meds Hypertension Stable Monitor DVT Px: Lovenox SQ Code Status Full code Disposition [facility] with HH for IV abx Admission and Anticipated Discharge Date Admission Date: August 21, 2022 Subjective Patient seen in follow up of pelvic fx and UTI Poor historian, however reports that he had dysuria for 2 weeks No significant pain, pt appears comfortable Denies fever, chills, chest pain, shortness of breath, abdominal pain, nausea or vomiting No other complaints Review of Systems Review of Systems: All systems reviewed & are unremarkable except as noted in Subjective Physical Exam Physical Exam: General Appearance: Thin, frail, chronically appearing, no apparent distress Head: normocephalic, Atraumatic Eyes: normal inspection, EOMI Neck: supple Respiratory/Chest: Decreased breath sounds, CTA, No accessory muscle use Cardiovascular: S1, S2, No murmur Abdomen/GI:Soft, Non tender, Bowel sounds present, Left pelvic tender : catheter placed Extremities/Musculoskeletal:normal inspection, Trace edema Neurologic/Psych:AAOX2, grossly moves all extremities, slow to respond Skin: normal color, warm Results & Data Results & Data ([facility]) Vital Signs (Past 12 Hours) Vital Signs Temp Pulse Resp BP Pulse Ox O2 Del Method 08/26/22 07:45 Room Air 08/26/22 07:33 36.6 C 65 20 140/82 97 Room Air Laboratory Results 08/26/22 08/26/22 Range/Units 07:17 07:17 WBC 6.86 (4.8-10.8) K/ul RBC 3.94 L (4.63-6.08) M/uL Hgb 11.8 L (14.0-18.0) g/dl Hct 35.6 L (40.1-51.0) % MCV 90.4 (80.0-100.0) fL MCH 29.9 (25.0-34.0) pg MCHC 33.1 (32.0-36.0) g/dL RDW Std Deviation 44.6 (36.4-46.3) fL RDW Coeff of David 13.5 (11.5-14.5) % Plt Count 180 (130-400) K/uL MPV 9.6 (9.4-12.4) fL Sodium 139 (136-145) mmol/L Potassium 3.7 (3.5-5.1) mmol/L Chloride 105 (98-107) mmol/L Carbon Dioxide 28 (21-32) mmol/L Anion Gap 6 (3-11) BUN 19 (6-23) mg/dl Creatinine 0.57 L (0.6-1.4) mg/dl Est Cr Clr Drug Dosing 130.2 ml/min Est GFR ( Amer) 116.4 ml/min Est GFR (Non-Af Amer) 100.4 ml/min BUN/Creatinine Ratio 33.3 H (10-20) Glucose 88 (70-99(Fasting)) mg/dl Calcium 8.3 L (8.5-10.1) mg/dl Phosphorus 3.6 (2.5-4.9) mg/dl Magnesium 1.9 (1.7-2.4) mg/dl Medications Administered Current Inpatient Medications Acetaminophen (Acetaminophen 325 Mg Tab) 650 mg PO Q4H PRN PRN Reason: Pain Stop: 09/20/22 03:39 Last Admin: 08/26/22 07:56 Dose: 650 mg Artificial Tears (Artificial Tears) 1 drops OP DAILY LISA Stop: 09/20/22 08:59 Last Admin: 08/26/22 07:58 Dose: 1 drops Brimonidine Tartrate (Brimonidine Tartrate 0.2% 5ml) 1 drops OPB Q12 LISA Stop: 09/20/22 08:59 Last Admin: 08/26/22 07:58 Dose: 1 drops Carbidopa/Levodopa (Carbidopa/Levodopa 25/100mg Tab) 1 tab PO TID@0800, [facility] Stop: 09/20/22 03:39 Last Admin: 08/26/22 07:57 Dose: 1 tab Docusate Sodium (Docusate Sodium 100 Mg Cap) 100 mg PO BID [facility] Stop: 09/20/22 08:59 Last Admin: 08/26/22 07:57 Dose: Not Given Dorzolamide/Timolol (Dorzolamide/Timolol 22.3/6.8mg/Ml 10 Ml Btl) 1 drops OPB BID@ [facility] Stop: 09/20/22 03:39 Last Admin: 08/26/22 07:58 Dose: 1 drops Duloxetine HCl (Duloxetine Hcl 20 Mg Cap) 20 mg PO BID [facility] Stop: 09/20/22 03:39 Last Admin: 08/26/22 07:57 Dose: 20 mg Enoxaparin Sodium (Enoxaparin Inj 40 Mg/0.4 Ml Syr) 40 mg SQ QAM [facility] Stop: 09/20/22 08:59 Last Admin: 08/26/22 07:58 Dose: 40 mg Finasteride (Finasteride 5 Mg Tab) 5 mg PO QAM [facility] Stop: 09/20/22 08:59 Last Admin: 08/26/22 07:57 Dose: 5 mg Ertapenem 1,000 mg/ Syringe 10 mls @ 2 mls/min IV Q24H [facility] Stop: 08/31/22 07:59 Last Admin: 08/26/22 07:58 Dose: 2 mls/min Loratadine (Loratadine 10 Mg Tab) 10 mg PO QAM [facility] Stop: 09/20/22 08:59 Last Admin: 08/26/22 07:56 Dose: 10 mg Oxycodone HCl (Oxycodone Hcl Ir 5 Mg Tab (Immediate Release)) 5 mg PO Q4H PRN PRN Reason: Pain Stop: 09/04/22 03:39 Last Admin: 08/21/22 22:03 Dose: 5 mg Pantoprazole Sodium (Pantoprazole 40 Mg Tab) 40 mg PO DAILYBB [facility] Stop: 09/20/22 06:29 Last Admin: 08/26/22 05:30 Dose: 40 mg Sertraline HCl (Sertraline Hcl 100 Mg Tablet) 100 mg PO QAM [facility] Stop: 09/20/22 08:59 Last Admin: 08/26/22 07:57 Dose: 100 mg Tamsulosin HCl (Tamsulosin Hcl 0.4 Mg Cap) 0.4 mg PO [facility] Stop: 09/20/22 03:39 Last Admin: 08/25/22 20:15 Dose: 0.4 mg
[2022-08-26] MEDS: guaiFENesin 600 MG TABCR PO SCH ×2 (17:06→20:34)
[2022-08-26] MEDS: TAMSULOSIN HCL 0.4 MG CAP PO SCH (20:35)
[2022-08-27] MEDS: PANTOprazole 40 MG TAB PO SCH (06:25)
--- NOTE | 2022-08-27 08:02 | Hospitalist Progress Note ---
Date of Service August 27, 2022 Assessment & Plan (1) Complicated UTI (urinary tract infection): Plan: Complicated UTI H/O BPH, ESBL E. coli Recurrent UTIs Urine culture - growing ESBL On ertapenem and will continue for 10-day course (completing on 08/29) Ultrasound-guided peripheral line placed to prepare for discharge. Appreciate case management assistance for [facility] - unable to find HH per CM Bladder scan as needed Continue finasteride, tamsulosin Fracture of left pelvis Secondary to mechanical fall, age-related osteoporosis Ambulatory dysfunction Secondary to Parkinson's disease Imaging studies reviewed Appreciate Orthopedic Input For precautions Pain control Partial weightbearing of the left lower extremity PT OT recommending SNF initially but patient's baseline activity is WC bound with 1-2 assist transfers, per Leslie Will need follow-up with Dr. Foreman in 2 weeks upon discharge Parkinson's disease Mood Disorder Continue home meds Aspiration -Per chart review, patient has had issues with aspiration since 2019 -Now found gurgling loudly and unable to swallow secretions safely -Chest x-ray obtained, and also concerning for pneumonia from aspiration -Patient already on antibiotics, as above -Spirometer and flutter valve, guaifenesin ordered -Video swallow study planned for tomorrow Hypertension Stable Monitor DVT Px: Lovenox SQ Code Status Full code Disposition Leslie with HH for IV abx Admission and Anticipated Discharge Date Admission Date: August 21, 2022 Subjective Patient seen in follow up of pelvic fx and UTI Poor historian, however reported previously that he had dysuria for 2 weeks No significant pain. This morning patient is sitting up in bed, and when trying to speak, gurgling loudly and speech is intelligible. Patient coughed and was able to cough up some secretions. Great concern for aspiration. CXR obtained. Discussed with speech therapist - patient had a study done in 2019, and already at that time he was aspirating. Plan for video swallow study tomorrow. Patient's son Ken updated over the phone. Review of Systems Review of Systems: All systems reviewed & are unremarkable except as noted in Subjective Physical Exam Physical Exam: General Appearance: Thin, frail, chronically appearing, no apparent distress Head: normocephalic, Atraumatic Eyes: normal inspection, EOMI Neck: supple Respiratory/Chest: Decreased breath sounds, CTA, No accessory muscle use Cardiovascular: S1, S2, No murmur Abdomen/GI: Soft, Non tender, Bowel sounds present, Left pelvic tender Extremities/Musculoskeletal:normal inspection, Trace edema Neurologic/Psych:AAOX2, grossly moves all extremities, slow to respond Skin: normal color, warm Results & Data Results & Data ([facility]) Vital Signs (Past 12 Hours) Vital Signs Temp Pulse Resp BP Pulse Ox O2 Del Method 08/27/22 07:47 36.9 C 70 16 155/94 H 92 Room Air 08/26/22 20:35 Room Air 08/26/22 20:58 37.2 C 85 16 158/79 H 93 Room Air Laboratory Results 08/26/22 Range/Units 07:17 Sodium 139 (136-145) mmol/L Potassium 3.7 (3.5-5.1) mmol/L Chloride 105 (98-107) mmol/L Carbon Dioxide 28 (21-32) mmol/L Anion Gap 6 (3-11) BUN 19 (6-23) mg/dl Creatinine 0.57 L (0.6-1.4) mg/dl Est Cr Clr Drug Dosing 130.2 ml/min Est GFR ( Amer) 116.4 ml/min Est GFR (Non-Af Amer) 100.4 ml/min BUN/Creatinine Ratio 33.3 H (10-20) Glucose 88 (70-99(Fasting)) mg/dl Calcium 8.3 L (8.5-10.1) mg/dl Phosphorus 3.6 (2.5-4.9) mg/dl Magnesium 1.9 (1.7-2.4) mg/dl Medications Administered Current Inpatient Medications Acetaminophen (Acetaminophen 325 Mg Tab) 650 mg PO Q4H PRN PRN Reason: Pain Stop: 09/20/22 03:39 Last Admin: 08/26/22 07:56 Dose: 650 mg Artificial Tears (Artificial Tears) 1 drops OP DAILY LISA Stop: 09/20/22 08:59 Last Admin: 08/26/22 07:58 Dose: 1 drops Brimonidine Tartrate (Brimonidine Tartrate 0.2% 5ml) 1 drops OPB Q12 [facility]ISA Stop: 09/20/22 08:59 Last Admin: 08/26/22 20:32 Dose: 1 drops Carbidopa/Levodopa (Carbidopa/Levodopa 25/100mg Tab) 1 tab PO TID@0800,1500,2000 [facility] Stop: 09/20/22 03:39 Last Admin: 08/26/22 20:35 Dose: 1 tab Docusate Sodium (Docusate Sodium 100 Mg Cap) 100 mg PO BID [facility]ISA Stop: 09/20/22 08:59 Last Admin: 08/26/22 20:32 Dose: Not Given Dorzolamide/Timolol (Dorzolamide/Timolol 22.3/6.8mg/Ml 10 Ml Btl) 1 drops OPB BID@0800,1999 [facility] Stop: 09/20/22 03:39 Last Admin: 08/26/22 20:31 Dose: 1 drops Duloxetine HCl (Duloxetine Hcl 20 Mg Cap) 20 mg PO BID [facility] Stop: 09/20/22 03:39 Last Admin: 08/26/22 20:34 Dose: 20 mg Enoxaparin Sodium (Enoxaparin Inj 40 Mg/0.4 Ml Syr) 40 mg SQ QAM [facility]ISA Stop: 09/20/22 08:59 Last Admin: 08/26/22 07:58 Dose: 40 mg Finasteride (Finasteride 5 Mg Tab) 5 mg PO QAM [facility] Stop: 09/20/22 08:59 Last Admin: 08/26/22 07:57 Dose: 5 mg Guaifenesin (Guaifenesin 600 Mg Tabcr) 1,200 mg PO Q12 LISA Stop: 09/25/22 16:34 Last Admin: 08/26/22 20:34 Dose: 1,200 mg Ertapenem 1,000 mg/ Syringe 10 mls @ 2 mls/min IV Q24H LISA Stop: 08/31/22 07:59 Last Admin: 08/26/22 07:58 Dose: 2 mls/min Lactobacillus Acidophilus (Advanced Probiotic 1250 Mg Capsule) 2 cap PO DAILY LISA Stop: 09/26/22 08:59 Loratadine (Loratadine 10 Mg Tab) 10 mg PO QAM [facility] Stop: 09/20/22 08:59 Last Admin: 08/26/22 07:56 Dose: 10 mg Oxycodone HCl (Oxycodone Hcl Ir 5 Mg Tab (Immediate Release)) 5 mg PO Q4H PRN PRN Reason: Pain Stop: 09/04/22 03:39 Last Admin: 12/06/22 22:03 Dose: 5 mg Pantoprazole Sodium (Pantoprazole 40 Mg Tab) 40 mg PO DAILYBB [facility] Stop: 09/20/22 06:29 Last Admin: 08/27/22 06:25 Dose: 40 mg Sertraline HCl (Sertraline Hcl 100 Mg Tablet) [facility] Stop: 09/20/22 08:59 Last Admin: 08/26/22 07:57 Dose: 100 mg Tamsulosin HCl (Tamsulosin Hcl 0.4 Mg Cap) 0.4 mg PO [facility] Stop: 09/20/22 03:39 Last Admin: 08/26/22 20:35 Dose: 0.4 mg
[2022-08-27] MEDS: ACETAMINOPHEN 325 MG TAB PO PRN (08:06)
[2022-08-27] MEDS: LORATADINE 10 MG TAB PO SCH (08:07)
[2022-08-27] MEDS: ERTAPENEM SODIUM 1,000 MG in SYRINGE 0 ML IV SCH (08:07)
[2022-08-27] MEDS: DULoxetine HCL 20 MG CAP PO SCH ×2 (08:08→20:40)
[2022-08-27] MEDS: CARBIDOPA/LEVODOPA 25/100MG TAB PO SCH ×3 (08:08→20:39)
[2022-08-27] MEDS: guaiFENesin 600 MG TABCR PO SCH ×2 (08:08→20:40)
[2022-08-27] MEDS: SERTRALINE HCL 100 MG TABLET PO SCH (08:08)
[2022-08-27] MEDS: ENOXAPARIN INJ 40 MG/0.4 ML SYR SQ SCH (08:08)
[2022-08-27] MEDS: BRIMONIDINE TARTRATE 0.2% 5ML OPB SCH ×2 (08:08→20:39)
[2022-08-27] MEDS: DORZOLAMIDE/TIMOLOL 22.3/6.8MG/ML 10 ML BTL OPB SCH ×2 (08:09→20:39)
[2022-08-27] MEDS: DOCUSATE SODIUM 100 MG CAP PO SCH ×2 (08:09→20:39)
[2022-08-27] MEDS: ARTIFICIAL TEARS OP SCH (08:09)
[2022-08-27] MEDS: FINASTERIDE 5 MG TAB PO SCH (10:12)
[2022-08-27] MEDS: ADVANCED PROBIOTIC 1250 MG CAPSULE PO SCH (12:37)
--- NOTE | 2022-08-27 13:19 | XRay Report ---
SINGLE VIEW CHEST CLINICAL HISTORY: Aspiration. FINDINGS: An AP, portable, upright chest radiograph is compared to study dated 07/30/2022. The heart is enlarged noting atherosclerotic calcification of the thoracic aorta. The pulmonary vasculature is noncongested. Chronic interstitial thickening is similar to previous. There is mild left basilar cons olidation. Scarring/atelectasis is seen at the right lung base. No large pleural effusion or pneumoth orax is seen. The skeletal structures are osteopenic. There are healed left-sided rib fractures. IMPRESSION: 1. Cardiomegaly without radiographic evidence of congestive failure. 2. There is developing left basilar consolidation. This could represent progressive atelectasis versu s a mild pneumonitis such as aspiration. Clinical correlation will be required and radiographic follo w-up to resolution is recommended. ACT 112: Negative or not required by law. Electronically signed by: Sushant Woodruff M.D. 08/27/2022 1:18 PM
[2022-08-27 13:26] LABS: Hematocrit (blood only) 35.6 % (40.1-51.0); Hemoglobin 12.1 g/dl (14.0-18.0); Mean Corpuscular Hemoglobin 30.1 pg (25.0-34.0); Mean Corpuscular Volume 88.6 fL (80.0-100.0); Mean Platelet Volume 9.9 fL (9.4-12.4); Platelet Count 214 K/uL (130-400); RDW Coefficient of Variation 13.6 % (11.5-14.5); RDW Standard Deviation 43.9 fL (36.4-46.3); Red Blood Count 4.02 M/uL (4.63-6.08); White Blood Count 8.97 K/ul (4.8-10.8)
[2022-08-27 13:59] LABS: BUN Creatinine Ratio 29.4 (10-20); Calcium 8.3 mg/dl (8.5-10.1); Creatinine Clr Calc Pharmacy 109.1 ml/min; Est GFR (African American) 108.3 ml/min; Est GFR (Non-African American) 93.4 ml/min; Potassium 3.6 mmol/L (3.5-5.1)
[2022-08-27] MEDS: TAMSULOSIN HCL 0.4 MG CAP PO SCH (20:41)
[2022-08-28] MEDS: PANTOprazole 40 MG TAB PO SCH (05:45)
[2022-08-28] MEDS: ACETAMINOPHEN 325 MG TAB PO PRN (05:48)
--- NOTE | 2022-08-28 08:30 | Palliative Care Consultation ---
Date of Consultation August 28, 2022 Assessment & Plan (1) Pain: with sacral fracture. PRN oxycodone available. He has been moved a lot today. (2) Terminal respiratory secretions: Added glycopyrrolate prn. VFSS pending (3) Palliative care encounter: I met with Mr. Lombardi's son, Ken, at bedside. He is POA for his father. He tells me that his father has an advance directive that indicates that he would not want resuscitation but did not really cover more specific wishes for his care. However, he tells me that his entire family has been consistent with the idea of focus on comfort and quality of life and he is certain that his father would want that also. He would prefer that he not return to the hospital. His 60s music and family are the most important things to him and being in his room at [facility] with his family and music would be the best quality of life for him. Ken would like focus to be on relief of pain, anxiety and shortness of breath. We discussed having the support of hospice care at [facility] and he would be in favor of this. Results of VFSS are pending. We will meet again tomorrow morning after final results to discuss further. I did notify case management and Dr. Bose, that comfort and hospice care would likely be the plan moving forward. His code status was changed to DNR per our discussion. History of Present Illness Reason for Consultation: goals of care Requesting Physician: Dr. Bose Attending Physician: Titi Bose MD History of Present Illness 76 yo gentleman with a history of Parkinson's disease and dementia who resides at [facility]. He was admitted after a fall with a pelvic fracture and complicated UTI. He has had He apparently had a history of dysphagia with aspiration and had evaluation with scant aspiration in 2019. He was noted to have some gurgling during her hospital stay. He has some left basilar consolidation on chest xray and was seen again by speech therapy and a VFSS is pending. Allergies Allergy/AdvReac Type Severity Reaction Status Date / Time Iodinated Contrast Media Allergy Intermediate IV OR Verified 08/21/22 00:03 ORAL--SKIN FLUSHES Home Medications Medication Instructions Recorded Confirmed Type carbidopa 25 mg-levodopa 100 mg 1 tab PO TID 07/08/18 08/20/22 History tablet finasteride 5 mg tablet 5 mg PO QAM 06/26/19 08/20/22 History pantoprazole 40 mg tablet,delayed 40 mg PO DAILYBB 06/26/19 08/21/22 History release sertraline 100 mg tablet 100 mg PO QAM 06/26/19 08/20/22 History dorzolamide 22.3 mg-timolol 6.8 1 drp OPB BID 01/23/20 08/20/22 History mg/mL eye drops acetaminophen 325 mg tablet 650 mg PO Q4H PRN Pain 04/24/20 08/20/22 History (Tylenol) docusate sodium 100 mg capsule 100 mg PO BID 04/24/20 08/20/22 History loratadine 10 mg tablet 10 mg PO QAM 04/24/20 08/21/22 History tamsulosin 0.4 mg capsule (Flomax) 0.4 mg PO HS 04/24/20 08/20/22 History brimonidine 0.2 % eye drops 1 drp OPB Q12H 03/14/21 08/20/22 History duloxetine 20 mg capsule,delayed 20 mg PO BID 03/14/21 08/20/22 History release (Cymbalta) hydrocortisone 2.5 % topical cream 1 applic topical BID PRN irritation 04/15/21 08/20/22 History carboxymethylcellulose sodium 1 % 1 drp ophthalmic (eye) DAILY 11/01/21 08/20/22 History eye drops (Artificial Tears (carboxymethylcellulose)) vit C 250 mg-vit E 90 mg-zinc 40 1 tab PO BID 11/01/21 08/20/22 History mg-copper 1 [id number] capsule (PreserVision AREDS-2) ertapenem 1 gram solution for 1 g IV DAILY #10 ea 08/24/22 Rx injection Patient History Medical History (Updated 08/28/22 @ 15:28 by Loli Khan MD) Abdominal pain Alzheimer disease Anxiety Dementia Substance abuse UTI due to extended-spectrum beta lactamase (ESBL) producing Escherichia coli Surgical History History of total left hip arthroplasty Family History Other No pertinent family history in first degree relatives Social History Smoking Status: Former smoker Tobacco Type: Cigarettes Second Hand Exposure: No; Do You Dip or Chew Tobacco: No; Tobacco Cessation Education Requested by Patient: No Hx Alcohol Use: No Hx Substance Use: Yes Prescribed Medications: Marijuana Last Used Substance: Days (ago) Last Used Substance Other:: 2 weeks ago, "I ran out" Substance Use Type Other:: smokes canibis/ medical marijuana Preferred Language: Maori Communication Ability: Effective Funding Coordinator Required: No Beliefs That Will Affect Care: None marital status: Unknown Current Living Situation: Shelter Current Living Situation Comment: [facility] 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 Feels Safe at Home: Yes Safety Concerns: Feels Safe At This Time Assistive Devices: Walker and Wheelchair Review of Systems Review of Systems: ESAS Pain 1/3 Dyspnea 0/3 Anxiety 1/3 Nausea 0/3 Fatigue 2/3 Physical Exam Constitutional: + ill appearing and + thin Respiratory: normal respiratory effort; no labored breathing audible tracheal secretions Gastrointestinal (Abdomen): Inspection/Auscultation: abdomen normal to inspection Musculoskeletal: Extremities: + muscle atrophy Skin: warm and dry Neurologic: Confused, thinks he's working in an office in [place] Results & Data ([facility]) Vital Signs (Past 12 Hours) Vital Signs Temp Pulse Resp BP Pulse Ox O2 Del Method O2 Flow Rate 08/28/22 07:56 98.6 F 71 16 130/83 97 Nasal Cannula 2 08/27/22 20:40 Nasal Cannula 2 08/27/22 20:44 97.7 F 81 16 182/95 H 93 Nasal Cannula 2 PG Care Time/CCT Total # of Minutes Spent Total Time Spent with Patient: Total time spent is greater than 50% in coordination of care (as documented) at patient's floor/unit and/or counseling patient: Coding Level of Care Code 39209 Initial Inpt Care Lvl 2 Diagnoses Pain R52 Terminal respiratory secretions R09.89 Palliative care encounter Z51.5
[2022-08-28 09:16] LABS: Hemoglobin 12.1 g/dl (14.0-18.0); Mean Corpuscular Hemoglobin 30.2 pg (25.0-34.0); Mean Corpuscular Hgb Conc 33.6 g/dL (32.0-36.0); Mean Corpuscular Volume 89.8 fL (80.0-100.0); Mean Platelet Volume 9.8 fL (9.4-12.4); Platelet Count 230 K/uL (130-400); RDW Coefficient of Variation 13.4 % (11.5-14.5); RDW Standard Deviation 43.8 fL (36.4-46.3); Red Blood Count 4.01 M/uL (4.63-6.08)
--- NOTE | 2022-08-28 09:46 | Hospitalist Progress Note ---
Date of Service August 28, 2022 Assessment & Plan (1) Complicated UTI (urinary tract infection): Plan: Complicated UTI H/O BPH, ESBL E. coli Recurrent UTIs Urine culture - growing ESBL On ertapenem and will continue for 10-day course (completing on 08/29) Ultrasound-guided peripheral line placed to prepare for discharge. Bladder scan as needed Continue finasteride, tamsulosin Fracture of left pelvis Secondary to mechanical fall, age-related osteoporosis Ambulatory dysfunction Secondary to Parkinson's disease Imaging studies reviewed Appreciate Orthopedic Input For precautions Pain control Partial weightbearing of the left lower extremity PT OT recommending SNF initially but patient's baseline activity is WC bound with 1-2 assist transfers, per Leslie Will need follow-up with Dr. Foreman in 2 weeks upon discharge Parkinson's disease Mood Disorder Patient followed with neurology, Dr. Recio Per chart review, patient was last seen in 2020 He is currently on carbidopa levodopa 1 tablet [address] Recio's note, patient was previously on higher doses and that caused hallucinations, patient did not tolerate well Currently patient is having a lot of difficulty with swallowing/aspiration, wondered if increasing dose would possibly helpdiscussed this with neurologist on-call, Dr. Joseph, over the phone. Given that the patient is wheelchair-bound, he likely has end-stage Parkinson's, and increased dose would likely not help. We could increase his dose slightly to 4 times daily from 3 times daily. I discussed this also with patient's son. Aspiration -Per chart review, patient has had issues with aspiration since 2019 -Now found gurgling loudly and unable to swallow secretions safely -Chest x-ray obtained, and also concerning for pneumonia from aspiration -Patient already on antibiotics, as above -Spirometer and flutter valve, guaifenesin ordered -however patient has difficulty using it -Video swallow study planned for today (08/28/2022) Hypertension Stable Monitor DVT Px: Lovenox SQ Code Status DNR/DNI - discussed w/ family (palliative medicine also consulted) Disposition [facility] with Hospice (discussed w/ palliative medicine) Admission and Anticipated Discharge Date Admission Date: August 21, 2022 Subjective Patient seen in follow up of pelvic fx and UTI Poor historian, however reported previously that he had dysuria for 2 weeks No significant pain. Yesterday morning patient was sitting up in bed, and when he was trying to speak, he was gurgling loudly and speech was intelligible. Patient coughed and was able to cough up some secretions. Great concern for aspiration. Today patient is lying in bed, in no acute distress. He is able to answer simple questions appropriately. No new complaints. Plan for video swallow study today Patient's son Ken updated at the bedside. Palliative medicine also consulted. Review of Systems Review of Systems: All systems reviewed & are unremarkable except as noted in Subjective Physical Exam Physical Exam: General Appearance: Thin, frail, chronically appearing, no apparent distress Head: normocephalic, Atraumatic Eyes: normal inspection, EOMI Neck: supple Respiratory/Chest: Decreased breath sounds, + rhonchi, No accessory muscle use Cardiovascular: S1, S2, No murmur Abdomen/GI: Soft, Non tender, Bowel sounds present, Left pelvic tender Extremities/Musculoskeletal:normal inspection, Trace edema Neurologic/Psych:AAOX2, grossly moves all extremities, slow to respond Skin: normal color, warm Results & Data Results & Data ([facility]) Vital Signs (Past 12 Hours) Vital Signs Temp Pulse Resp BP Pulse Ox O2 Del Method O2 Flow Rate 08/28/22 07:56 37.0 C 71 16 130/83 97 Nasal Cannula 2 Laboratory Results 08/28/22 08/28/22 Range/Units 08:51 08:51 WBC 9.20 (4.8-10.8) K/ul RBC 4.01 L (4.63-6.08) M/uL Hgb 12.1 L (14.0-18.0) g/dl Hct 36.0 L (40.1-51.0) % MCV 89.8 (80.0-100.0) fL MCH 30.2 (25.0-34.0) pg MCHC 33.6 (32.0-36.0) g/dL RDW Std Deviation 43.8 (36.4-46.3) fL RDW Coeff of David 13.4 (11.5-14.5) % Plt Count 230 (130-400) K/uL MPV 9.8 (9.4-12.4) fL Sodium 141 (136-145) mmol/L Potassium 3.1 L (3.5-5.1) mmol/L Chloride 108 H (98-107) mmol/L Carbon Dioxide 26 (21-32) mmol/L Anion Gap 7 (3-11) BUN 21 (6-23) mg/dl Creatinine 0.63 (0.6-1.4) mg/dl Est Cr Clr Drug Dosing 117.8 ml/min Est GFR ( Amer) 111.7 ml/min Est GFR (Non-Af Amer) 96.4 ml/min BUN/Creatinine Ratio 33.3 H (10-20) Glucose 87 (70-99(Fasting)) mg/dl Calcium 8.0 L (8.5-10.1) mg/dl Phosphorus 4.1 (2.5-4.9) mg/dl Magnesium 1.9 (1.7-2.4) mg/dl Medications Administered Current Inpatient Medications Acetaminophen (Acetaminophen 325 Mg Tab) 650 mg PO Q4H PRN PRN Reason: Pain Stop: 09/20/22 03:39 Last Admin: 08/28/22 05:48 Dose: 650 mg Artificial Tears (Artificial Tears) 1 drops OP DAILY LISA Stop: 09/20/22 08:59 Last Admin: 08/27/22 08:09 Dose: 1 drops Brimonidine Tartrate (Brimonidine Tartrate 0.2% 5ml) 1 drops OPB Q12 LISA Stop: 09/20/22 08:59 Last Admin: 08/27/22 20:39 Dose: 1 drops Carbidopa/Levodopa (Carbidopa/Levodopa 25/100mg Tab) 1 tab PO TID@0800,1500,1999 [facility] Stop: 09/20/22 03:39 Last Admin: 08/27/22 20:39 Dose: 1 tab Docusate Sodium (Docusate Sodium 100 Mg Cap) 100 mg PO BID [facility] Stop: 09/20/22 08:59 Last Admin: 08/27/22 20:39 Dose: Not Given Dorzolamide/Timolol (Dorzolamide/Timolol 22.3/6.8mg/Ml 10 Ml Btl) 1 drops OPB BID@0800,1999 [facility] Stop: 09/20/22 03:39 Last Admin: 08/27/22 20:39 Dose: 1 drops Duloxetine HCl (Duloxetine Hcl 20 Mg Cap) 20 mg PO BID [facility] Stop: 09/20/22 03:39 Last Admin: 08/27/22 20:40 Dose: 20 mg Enoxaparin Sodium (Enoxaparin Inj 40 Mg/0.4 Ml Syr) 40 mg SQ QAM [facility]ISA Stop: 09/20/22 08:59 Last Admin: 08/27/22 08:08 Dose: 40 mg Finasteride (Finasteride 5 Mg Tab) 5 mg PO QAM [facility] Stop: 09/20/22 08:59 Last Admin: 08/27/22 10:12 Dose: 5 mg Guaifenesin (Guaifenesin 600 Mg Tabcr) 1,200 mg PO Q12 LISA Stop: 09/25/22 16:34 Last Admin: 08/27/22 20:40 Dose: 1,200 mg Ertapenem 1,000 mg/ Syringe 10 mls @ 2 mls/min IV Q24H LISA Stop: 08/31/22 07:59 Last Admin: 08/27/22 08:07 Dose: 2 mls/min Lactobacillus Acidophilus (Advanced Probiotic 1250 Mg Capsule) 2 cap PO DAILY LISA Stop: 09/26/22 08:59 Last Admin: 08/27/22 12:37 Dose: Not Given Loratadine (Loratadine 10 Mg Tab) 10 mg PO QAM [facility] Stop: 09/20/22 08:59 Last Admin: 08/27/22 08:07 Dose: 10 mg Oxycodone HCl (Oxycodone Hcl Ir 5 Mg Tab (Immediate Release)) 5 mg PO Q4H PRN PRN Reason: Pain Stop: 09/04/22 03:39 Last Admin: 08/21/22 22:03 Dose: 5 mg Pantoprazole Sodium (Pantoprazole 40 Mg Tab) 40 mg PO DAILYBB [facility] Stop: 09/20/22 06:29 Last Admin: 08/28/22 05:45 Dose: 40 mg Sertraline HCl (Sertraline Hcl 100 Mg Tablet) 100 mg PO QAM [facility] Stop: 09/20/22 08:59 Last Admin: 08/27/22 08:08 Dose: 100 mg Tamsulosin HCl (Tamsulosin Hcl 0.4 Mg Cap) 0.4 mg PO HS [facility] Stop: 09/20/22 03:39 Last Admin: 08/27/22 20:41 Dose: 0.4 mg
[2022-08-28] MEDS: ERTAPENEM SODIUM 1,000 MG in SYRINGE 0 ML IV SCH (09:52)
[2022-08-28] MEDS: SERTRALINE HCL 100 MG TABLET PO SCH (09:53)
[2022-08-28] MEDS: FINASTERIDE 5 MG TAB PO SCH (09:53)
[2022-08-28] MEDS: guaiFENesin 600 MG TABCR PO SCH ×2 (09:53→20:43)
[2022-08-28] MEDS: LORATADINE 10 MG TAB PO SCH (09:53)
[2022-08-28] MEDS: DOCUSATE SODIUM 100 MG CAP PO SCH ×2 (09:54→20:40)
[2022-08-28] MEDS: DULoxetine HCL 20 MG CAP PO SCH ×2 (09:55→20:43)
[2022-08-28] MEDS: ADVANCED PROBIOTIC 1250 MG CAPSULE PO SCH (09:55)
[2022-08-28] MEDS: DORZOLAMIDE/TIMOLOL 22.3/6.8MG/ML 10 ML BTL OPB SCH ×2 (09:56→20:39)
[2022-08-28] MEDS: ARTIFICIAL TEARS OP SCH (10:01)
[2022-08-28] MEDS: BRIMONIDINE TARTRATE 0.2% 5ML OPB SCH ×2 (10:01→20:40)
[2022-08-28] MEDS: ENOXAPARIN INJ 40 MG/0.4 ML SYR SQ SCH (10:03)
[2022-08-28] MEDS: CARBIDOPA/LEVODOPA 25/100MG TAB PO SCH ×4 (10:04→20:40)
[2022-08-28 10:15] LABS: BUN Creatinine Ratio 33.3 (10-20); Creatinine Clr Calc Pharmacy 117.8 ml/min; Est GFR (African American) 111.7 ml/min; Est GFR (Non-African American) 96.4 ml/min; Magnesium 1.9 mg/dl (1.7-2.4); Phosphorus 4.1 mg/dl (2.5-4.9); Potassium 3.1 mmol/L (3.5-5.1)
[2022-08-28] MEDS ORDERED: GLYCOPYRROLATE 0.2 MG/ML VIAL IV PRN (14:38)
[2022-08-28] MEDS: oxyCODONE HCL IR 5 MG TAB (IMMEDIATE RELEASE) PO PRN (14:50)
--- NOTE | 2022-08-28 15:58 | Fluoroscopy Report ---
VIDEO SWALLOW STUDY CLINICAL HISTORY: Aspiration. COMPARISON STUDY: Video swallow study dated 10/02/2018. Fluoroscopy time: 3.6 minutes. FINDINGS: Fluoroscopic guidance was provided to the department of speech pathology in performing a vi nany swallow study. The patient consumed barium impregnated pudding, cracker with paste, thickened liq uids, and thin barium while the swallowing mechanism was observed in real-time. Trace aspiration was seen with all of the sampled textures. IMPRESSION: Trace aspiration was seen with all of the sampled textures. See dedicated speech patholog y report for detailed findings and recommendations. Dictated: 08/28/2022 3:47 PM Transcribed: 08/28/2022 3:54 PM Ana [id number] [email or web address] Electronically signed by: Sushant Woodruff M.D. 08/28/2022 3:57 PM
[2022-08-28] MEDS: TAMSULOSIN HCL 0.4 MG CAP PO SCH (20:44)
[2022-08-29] MEDS: PANTOprazole 40 MG TAB PO SCH (06:09)
[2022-08-29] MEDS ORDERED: POTASSIUM CHLORIDE CRTAB 20 MEQ TABCR PO STA (08:48)
[2022-08-29] MEDS: DORZOLAMIDE/TIMOLOL 22.3/6.8MG/ML 10 ML BTL OPB SCH ×2 (09:20→20:52)
[2022-08-29] MEDS: CARBIDOPA/LEVODOPA 25/100MG TAB PO SCH ×4 (09:20→20:53)
[2022-08-29] MEDS: BRIMONIDINE TARTRATE 0.2% 5ML OPB SCH ×2 (09:20→20:51)
[2022-08-29] MEDS: ARTIFICIAL TEARS OP SCH (09:20)
[2022-08-29] MEDS: FINASTERIDE 5 MG TAB PO SCH (09:21)
[2022-08-29] MEDS: guaiFENesin 600 MG TABCR PO SCH ×2 (09:21→21:58)
[2022-08-29] MEDS: LORATADINE 10 MG TAB PO SCH (09:21)
[2022-08-29] MEDS: SERTRALINE HCL 100 MG TABLET PO SCH (09:21)
[2022-08-29] MEDS: ADVANCED PROBIOTIC 1250 MG CAPSULE PO SCH (09:21)
[2022-08-29] MEDS: ENOXAPARIN INJ 40 MG/0.4 ML SYR SQ SCH (09:22)
[2022-08-29] MEDS: DOCUSATE SODIUM 100 MG CAP PO SCH ×2 (09:22→20:52)
[2022-08-29] MEDS: oxyCODONE HCL IR 5 MG TAB (IMMEDIATE RELEASE) PO PRN ×2 (09:22→11:33)
[2022-08-29] MEDS: DULoxetine HCL 20 MG CAP PO SCH ×2 (09:22→21:58)
[2022-08-29] MEDS: ERTAPENEM SODIUM 1,000 MG in SYRINGE 0 ML IV SCH (10:18)
--- NOTE | 2022-08-29 11:11 | Palliative Care Progress Note ---
Date of Service August 29, 2022 Assessment & Plan (1) Pain: Plan: with pelvic fracture and prolonged immobility due to Parkinson's disease Will increase oxycodone to 10 mg every four hours as needed (2) Palliative care encounter: Plan: I talked with Mr. Lombardi about results of VFSS with trace aspiration. We discussed the conversation that I had with Ken yesterday. When I asked him what he looks forward to in the future, he told me that he hoped the Parkinson's would get better. We talked about the unfortunate fact that it will likely progress and option to focus on comfort and quality of life. He agreed with this. I also spoke with Ken on the phone. He is encouraged by VFSS results but realizes that overall prognosis is poor. He is concerned about the level of care that his father will need at [facility]. We discussed hospice benefit and team roles to help augment the care at [facility]. Despite minimal aspiration on VFSS, he feels that overall focus on comfort is the ideal approach to his care at this time. Will discuss with case management. [id number] Admission and Anticipated Discharge Date Admission Date: August 21, 2022 Subjective Complaining of pain in his right neck and legs. He had oxycodone 5mg at 0922. He's had 10 mg in 24 hours. Less respiratory secretions today, voice more clear. Review of Systems Review of Systems: ESAS Pain 2/3 Dyspnea 0/3 Nausea 0/3 Drowsiness 0/3 Anxiety 1/3 PPS 30 Physical Exam ENMT: Mouth: + dry oral mucous membranes Respiratory: normal respiratory effort; no labored breathing no audible secretions Gastrointestinal (Abdomen): nontender LBM 08/28 Musculoskeletal: contractures, muscle atrophy Results & Data ([facility]) Vital Signs (Past 12 Hours) Vital Signs Temp Pulse Resp BP Pulse Ox O2 Del Method 08/29/22 07:53 98.1 F 67 16 159/84 H 98 Room Air PG Care Time/CCT Total # of Minutes Spent Total Time Spent: 39 Total Time Spent with Patient: Total time spent is greater than 50% in coordination of care (as documented) at patient's floor/unit and/or counseling patient: goals of care, hospice, patient and family education and support Coding Level of Care Code 03851 Subseq Hosp Care Lvl 3 Diagnoses Pain R52 Palliative care encounter Z51.5
[2022-08-29] MEDS ORDERED: oxyCODONE HCL IR 5 MG TAB (IMMEDIATE RELEASE) PO STA (11:17)
--- NOTE | 2022-08-29 14:36 | Hospitalist Progress Note ---
Date of Service August 29, 2022 Assessment & Plan (1) Complicated UTI (urinary tract infection): Plan: Complicated UTI / ESBL UTI H/O BPH, ESBL E. coli H/o recurrent UTIs Urine culture - growing ESBL Bladder scan as needed Continue finasteride, tamsulosin On ertapenem and will continue for 10-day course Fracture of left pelvis Secondary to mechanical fall, age-related osteoporosis Ambulatory dysfunction: Secondary to Parkinson's disease Imaging studies reviewed Appreciate Orthopedic Input, f/u w/ ortho in 2 weeks upon DC Fall precautions, Pain control Partial weightbearing of the left lower extremity per ortho PT OT recommending SNF initially but patient's baseline activity is WC bound with 1-2 assist transfers, per Leslie Parkinson's disease Mood Disorder Patient follows with neurology, Dr. Recio Per chart review, patient was last seen in 2020 He is currently on carbidopa levodopa 1 tablet [address] 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 Given that the patient is wheelchair-bound, he likely has end-stage Parkinson's, and increased dose would likely not help per Neuro. Aspiration -Per chart review, patient has had issues with aspiration since 2019 -Now found gurgling loudly and unable to swallow secretions safely during this admission -Chest x-ray obtained, and also concerning for pneumonia from aspiration -Patient already on antibiotics, as above -Spirometer and flutter valve, guaifenesin ordered -however patient has difficulty using it -08/29 VFSS: Trace aspiration was seen with all of the sampled textures. - Speech evaled, appreciate recs. Other chronic medical conditions: Resume home meds as able. DVT Px: Lovenox SC. Code Status: DNR/DNI Disposition [facility] with Hospice Admission and Anticipated Discharge Date Admission Date: August 21, 2022 Subjective Pt seen and examined at bedside as a f/u of ESBL UTI, Fracture of left pelvis, h/o parkinson's disease. Pt was lying semiupright in bed, on 2L NC O2, complaining of pain in right neck and thighs. Per RN, no new acute events overnight, ate no breakfast in AM, had bm yesterday. Pt offer no further complaints. Physical Exam Physical Exam: GENERAL: Alert and oriented x3. NAD, on 2L NC O2. HEENT: No pallor, no icterus. Pupils equal, round and reactive to light. Oral mucosa moist. NECK: No JVD, no neck masses. HEART: S1 and S2 heard. Regular rate and rhythm. No murmur, no gallop. RESPIRATORY SYSTEM: Normal AP diameter. No accessory muscle use. No wheezing, b/b crackles. ABDOMEN: Soft, bowel sounds present, nontender, no distention. CENTRAL NERVOUS SYSTEM: No facial droop. Speech is clear. Obeys simple commands. Moves extremities. EXTREMITIES: No edema, no erythema seen. Results & Data Results & Data ([facility]) Vital Signs (Past 12 Hours) Vital Signs Temp Pulse Resp BP Pulse Ox O2 Del Method 08/29/22 07:53 36.7 C 67 16 159/84 H 98 Room Air
[2022-08-29] MEDS: DICLOFENAC SOD 1% GEL 100 GM TUBE EXT SCH ×3 (15:17→23:00)
[2022-08-29] MEDS ORDERED: ONDANSETRON INJ 2 MG/ML 2 ML VIAL IV PRN (18:23)
[2022-08-29] MEDS: TAMSULOSIN HCL 0.4 MG CAP PO SCH (21:58)
[2022-08-30] MEDS: DICLOFENAC SOD 1% GEL 100 GM TUBE EXT SCH ×6 (03:01→21:47)
[2022-08-30] MEDS: PANTOprazole 40 MG TAB PO SCH (06:12)
[2022-08-30 07:19] LABS: BUN Creatinine Ratio 39.7 (10-20); Calcium 8.3 mg/dl (8.5-10.1); Creatinine Clr Calc Pharmacy 117.8 ml/min; Est GFR (African American) 111.7 ml/min; Est GFR (Non-African American) 96.4 ml/min; Potassium 3.3 mmol/L (3.5-5.1)
[2022-08-30] MEDS: oxyCODONE HCL IR 5 MG TAB (IMMEDIATE RELEASE) PO PRN ×2 (07:31→21:46)
[2022-08-30] MEDS: ERTAPENEM SODIUM 1,000 MG in SYRINGE 0 ML IV SCH (07:32)
[2022-08-30] MEDS: DORZOLAMIDE/TIMOLOL 22.3/6.8MG/ML 10 ML BTL OPB SCH ×2 (10:15→19:25)
[2022-08-30] MEDS: BRIMONIDINE TARTRATE 0.2% 5ML OPB SCH ×2 (10:16→21:26)
[2022-08-30] MEDS: ARTIFICIAL TEARS OP SCH (10:16)
[2022-08-30] MEDS: ENOXAPARIN INJ 40 MG/0.4 ML SYR SQ SCH (10:16)
[2022-08-30] MEDS: CARBIDOPA/LEVODOPA 25/100MG TAB PO SCH ×4 (10:31→21:27)
[2022-08-30] MEDS: DULoxetine HCL 20 MG CAP PO SCH ×2 (10:31→21:28)
[2022-08-30] MEDS: FINASTERIDE 5 MG TAB PO SCH (10:31)
[2022-08-30] MEDS: DOCUSATE SODIUM 100 MG CAP PO SCH (10:31)
[2022-08-30] MEDS: LORATADINE 10 MG TAB PO SCH (10:32)
[2022-08-30] MEDS: ADVANCED PROBIOTIC 1250 MG CAPSULE PO SCH (10:32)
[2022-08-30] MEDS: guaiFENesin 600 MG TABCR PO SCH ×2 (10:32→21:28)
[2022-08-30] MEDS: POTASSIUM CHLORIDE CRTAB 20 MEQ TABCR PO SCH ×2 (10:33→11:51)
[2022-08-30] MEDS: SERTRALINE HCL 100 MG TABLET PO SCH (10:33)
[2022-08-30] MEDS ORDERED: DOCUSATE SODIUM 100 MG CAP PO PRN (11:27)
[2022-08-30] MEDS: POTASSIUM CHLORIDE / WTR 10 MEQ/100 ML PLCT IV SCH ×4 (11:54→15:09)
--- NOTE | 2022-08-30 15:39 | Hospitalist Progress Note ---
Date of Service August 30, 2022 Assessment & Plan (1) Complicated UTI (urinary tract infection): Plan: Complicated UTI / ESBL UTI H/O BPH, ESBL E. coli H/o recurrent UTIs Urine culture - growing ESBL Bladder scan as needed Continue finasteride, tamsulosin On ertapenem and will continue for 10-day course Fracture of left pelvis Secondary to mechanical fall, age-related osteoporosis Ambulatory dysfunction: Secondary to Parkinson's disease Imaging studies reviewed Appreciate Orthopedic Input, f/u w/ ortho in 2 weeks upon DC Fall precautions, Pain control Partial weightbearing of the left lower extremity per ortho PT OT recommending SNF initially but patient's baseline activity is WC bound with 1-2 assist transfers, per Leslie Parkinson's disease Mood Disorder Patient follows with neurology, Dr. Recio Per chart review, patient was last seen in 2020 He is currently on carbidopa levodopa 1 tablet [address] 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 Given that the patient is wheelchair-bound, he likely has end-stage Parkinson's, and increased dose would likely not help per Neuro. Aspiration -Per chart review, patient has had issues with aspiration since 2019 -Now found gurgling loudly and unable to swallow secretions safely during this admission -Chest x-ray obtained, and also concerning for pneumonia from aspiration -Patient already on antibiotics, as above -Spirometer and flutter valve, guaifenesin ordered -however patient has difficulty using it -08/29 VFSS: Trace aspiration was seen with all of the sampled textures. - Speech evaled, appreciate recs. Other chronic medical conditions: Resume home meds as able. DVT Px: Lovenox SC. Code Status: DNR/DNI Disposition [facility] with Hospice Admission and Anticipated Discharge Date Admission Date: August 21, 2022 Subjective Pt seen and examined at bedside as a f/u of ESBL UTI, Fracture of left pelvis, h/o parkinson's disease. Pt was lying semiupright in bed, on 2L NC O2, sleeping "deep"; not able to be aroused. Per RN, pt was awake whole night and in AM and was conversive but has been asleep since then, didn't wake up for breakfast and meds. ROS n/a. Physical Exam Physical Exam: GENERAL: sleepy. NAD, on 2L NC O2. HEENT: No pallor, no icterus. Pupils equal, round. Oral mucosa dry. NECK: No JVD, no neck masses. HEART: S1 and S2 heard. Regular rate and rhythm. No murmur, no gallop. RESPIRATORY SYSTEM: Normal AP diameter. No accessory muscle use. No wheezing, b/b crackles. ABDOMEN: Soft, bowel sounds present, nontender, no distention. CENTRAL NERVOUS SYSTEM: No facial droop. rest n/a EXTREMITIES: No edema, no erythema seen. Results & Data Results & Data ([facility]) Vital Signs (Past 12 Hours) Vital Signs Temp Pulse Resp BP BP Pulse Ox O2 Del Method 08/30/22 07:30 Nasal Cannula 08/30/22 14:08 36.6 C 70 16 152/84 H 95 Nasal Cannula 08/30/22 07:25 Nasal Cannula 08/30/22 07:52 37 C 68 16 137/80 97 Nasal Cannula O2 Flow Rate 08/30/22 07:30 2 08/30/22 14:08 2 08/30/22 07:25 2 08/30/22 07:52 2
[2022-08-30] MEDS: TAMSULOSIN HCL 0.4 MG CAP PO SCH (21:29)
[2022-08-31] MEDS: DICLOFENAC SOD 1% GEL 100 GM TUBE EXT SCH ×3 (02:03→13:37)
[2022-08-31] MEDS: PANTOprazole 40 MG TAB PO SCH (06:09)
[2022-08-31 07:09] LABS: BUN Creatinine Ratio 32.4 (10-20); Calcium 8.1 mg/dl (8.5-10.1); Creatinine Clr Calc Pharmacy 109.1 ml/min; Est GFR (African American) 108.3 ml/min; Est GFR (Non-African American) 93.4 ml/min; Potassium 3.5 mmol/L (3.5-5.1)
[2022-08-31] MEDS: SERTRALINE HCL 100 MG TABLET PO SCH (08:28)
[2022-08-31] MEDS: LORATADINE 10 MG TAB PO SCH (08:28)
[2022-08-31] MEDS: DULoxetine HCL 20 MG CAP PO SCH (08:29)
[2022-08-31] MEDS: guaiFENesin 600 MG TABCR PO SCH (08:29)
[2022-08-31] MEDS: FINASTERIDE 5 MG TAB PO SCH (08:30)
[2022-08-31] MEDS: CARBIDOPA/LEVODOPA 25/100MG TAB PO SCH ×2 (08:31→13:37)
[2022-08-31] MEDS: ADVANCED PROBIOTIC 1250 MG CAPSULE PO SCH (08:31)
[2022-08-31] MEDS: ARTIFICIAL TEARS OP SCH (08:32)
[2022-08-31] MEDS: BRIMONIDINE TARTRATE 0.2% 5ML OPB SCH (08:32)
[2022-08-31] MEDS: DORZOLAMIDE/TIMOLOL 22.3/6.8MG/ML 10 ML BTL OPB SCH (08:32)
--- NOTE | 2022-08-31 13:19 | Discharge Summary ---
Date of Service August 31, 2022 Admission HPI Per Admitting Provider History obtained from patient and records. Patient is a reliable historian. Medical history significant for Parkinson's disease,CVA as per records, hypertension, BPH, recurrent UTIs (hx of ESBL E. coli as per records) Last confinement April 2022 for ESBL E. coli UTI. Patient completed Ertapenem course. Patient slid out of bed trying to walk to his wheelchair last night. Achy hip and back pain. No head trauma. Increased weakness. Patient more confused than usual as per staff. Patient denies chest pain, SOB. Patient brought to the ER for evaluation. 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, [facility] resident Admission Exam Per Admitting Provider GENERAL: Slightly uncomfortable, pleasant, no respiratory distress SKIN: Pallor, warm HEENT: Pale palpebral conjunctivae, no ptosis, dry buccal mucosa NECK : Supple, no tenderness CHEST : Decreased breath sounds, no tenderness HEART : RRR, no obvious murmurs ABDOMEN: Some distention, minimal hypogastric tenderness EXTREMITIES : No LE swelling/tenderness, no other conspicuous deformities noted NEUROLOGIC : Coherent, no facial asymmetry, bradykinetic, MMTS BUE 4/5, BLE 2/5, gait and stance not assessed Principal Diagnosis pelvix fracture, ESBL UTI Discharge Exam GENERAL: sleepy. NAD, on 2L NC O2. HEENT: No pallor, no icterus. Pupils equal, round. Oral mucosa moist. NECK: No JVD, no neck masses. HEART: S1 and S2 heard. Regular rate and rhythm. No murmur, no gallop. RESPIRATORY SYSTEM: Normal AP diameter. No accessory muscle use. No wheezing, b/b crackles. ABDOMEN: Soft, bowel sounds present, nontender, no distention. CENTRAL NERVOUS SYSTEM: No facial droop. rest n/a EXTREMITIES: No edema, no erythema seen. Discharge Data Allergies Allergy/AdvReac Type Severity Reaction Status Date / Time Iodinated Contrast Media Allergy Intermediate IV OR Verified 08/21/22 00:03 ORAL--SKIN FLUSHES Consultations 08/20/22 22:40 ED Decision to Admit Stat 08/21/22 01:39 Consult Orthopedic Surgery Routine 08/27/22 18:31 Consult Palliative Care Routine Ordered Studies 08/20/22 20:49 CT hip LT wo con Urgent CT pelvis wo con Urgent 08/28/22 13:30 FL video swallow Routine Hospital Course (1) Complicated UTI (urinary tract infection): 76 yo M was managed for the following while in hospital: Complicated UTI / ESBL UTI H/O BPH, ESBL E. coli H/o recurrent UTIs Urine culture - growing ESBL Bladder scan as needed Continue finasteride, tamsulosin s/p 10 day course of ertapenem. Fracture of left pelvis Secondary to mechanical fall, age-related osteoporosis Ambulatory dysfunction: Secondary to Parkinson's disease Imaging studies reviewed Appreciate Orthopedic Input, f/u w/ ortho in 2 weeks upon DC Fall precautions, Pain control Partial weightbearing of the left lower extremity per ortho PT OT recommending SNF initially but patient's baseline activity is WC bound with 1-2 assist transfers, per Leslie Parkinson's disease Mood Disorder Patient follows with neurology, Dr. Recio Per chart review, patient was last seen in 2020 He is currently on carbidopa levodopa 1 tablet [address] Recio's note, patient was previously on higher doses and that caused hallucinations, patient did not tolerate well Currently due to Parkinson's worsening prior attending increased levo-carbi to 4 times days after discussion w/ aerotriangulation specialist neuro. Given that the patient is wheelchair-bound, he likely has end-stage Parkinson's, and increased dose would likely not help per Neuro. Will likely benefit from maintaining follow up with palliative care as OP. Aspiration -Per chart review, patient has had issues with aspiration since 2018 -Now found gurgling loudly and unable to swallow secretions safely during this admission -Chest x-ray obtained, and also concerning for pneumonia from aspiration -Patient already on antibiotics, as above -Spirometer and flutter valve, guaifenesin ordered -however patient has difficulty using it -08/29 VFSS: Trace aspiration was seen with all of the sampled textures. - Speech evaled, appreciate recs. Other chronic medical conditions: Resume home meds as able. DVT Px: Lovenox SC. Code Status: DNR/DNI Disposition Leslie with Hospice, today. Home Health Attestation I certify that this patient is under my care and that I, or a physicians assistant food service manager working with me, had a face to-face encounter that meets the home health [id number] encounter requirements with this patient. The encounter with the patient was in whole, or in part, for the following medical condition, which is the primary reason for home health care (list medical condition): I certify that, based on my findings, the following services are medically necessary home health services: My clinical findings support the need for the above services because: Further, I certify that my clinical findings support that this patient is homebound (i.e. absences from home require considerable and taxing effort and are for medical reasons or [employer] services or infrequently or of short duration when for other reasons) because: Certification for Home Health Services: Based on the above findings, I certify that this patient is confined to the home and needs intermittent longterm care, physical therapy and/or speech therapy or continues to need occupational therapy. The patient is under my care, and I have initiated the establishment of the plan of care. This patient will be followed by a physician who will periodically review the plan of care. Total Time Total Time Spent Total Time Spent (In Minutes): 35 Discharge Plan Discharge Items Patient Disposition: Personal Assisted Reason For Visit: PELVIC FX Discharge Diagnosis: pelvix fracture, ESBL UTI Activity: Per Instructions section Non-emergency contact: Primary Care Provider Call non-emergency contact if: you have any medication questions, your symptoms worsen, your pain is not controlled and you have a fever Follow-up/Referrals: STATE WIL[facility] BAKER [Primary Care Provider] - Diet: Heart Healthy Addtl Attending Provider Instructions: You were admitted with complicated UTI and grew ESBL E. coli on urine culture. You are done with ertapenem course for 10 days. Bladder scan as needed continue finasteride, tamsulosin You are also found to have fracture of left pelvis secondary to fall before arrival Per orthopedic surgery, nonsurgical fracture. Partial weightbearing of left lower extremity. As needed pain control with Tylenol Will need follow-up with orthopedic doctor (Dr. Foreman) in 2 weeks upon discharge OTHER INSTRUCTIONS: Seek medical attention if you have: * temperature above 101 * chest pain or trouble breathing * abdominal pain, nausea, vomiting * diarrhea, dark stools or bloody stools * any unanswered questions or concerns Call 911 if symptoms are severe. Please take good care of yourself. Call if you have any questions or problems. You can reach a [facility] hospitalist on duty at [facility] 24 hours a day by calling [phone]. Pending Studies at Discharge: No Stand-Alone Forms: My [facility], Smoking Cessation Skilled Items Patient informed of condition?: Yes DNR: No Discharge Level of Care: Other Communicable Disease: No Discharge Prognosis: Stable Lines: None Urinary Catheter: No Medications and DC Order Prescriptions: Continued sertraline 100 mg tablet 100 mg PO QAM pantoprazole 40 mg Tablet,Delayed Release (Dr/Ec) 40 mg PO DAILYBB Rx Instructions: TAKE THIS MEDICATION ONCE DAILY BEFORE BREAKFAST finasteride 5 mg tablet 5 mg PO QAM acetaminophen [Tylenol] 325 mg Tablet 650 mg PO Q4H MDD 3 GR/24 HRS PRN (Reason: Pain) tamsulosin [Flomax] 0.4 mg Capsule 0.4 mg PO HS docusate sodium 100 mg Capsule 100 mg PO BID loratadine 10 mg Tablet 10 mg PO QAM carbidopa-levodopa 25-100 mg tablet 1 tab PO TID Rx Instructions: Daily at 0800, 1500, and 2000 dorzolamide-timolol 22.3-6.8 mg/mL drops 1 drp OPB BID Rx Instructions: Takes at 0800 and 2000 brimonidine 0.2 % drops 1 drp OPB Q12H duloxetine [Cymbalta] 20 mg capsule,delayed release(DR/EC) 20 mg PO BID hydrocortisone 2.5 % cream 1 applic TOPICAL BID PRN (Reason: irritation) Rx Instructions: apply to pink,scaly,itchy skin on face up to twice a day for irritaion PreserVision AREDS-2 250-90-40-1 mg Capsule 1 tab PO BID Artificial Tears (cmc) 1 % Drops 1 drp OPHTHALMIC (EYE) DAILY Discharge Orders: Discharge Order (Routine); Ordered 08/31/22 Ordered By: Natalya Infante Admission Data Admit Date/Time: 08/21/22 01:36 Attending Provider: Natalya Infante Admit Provider: Cristian Kraus Primary Care Provider: [facility] SAMUEL WILBER Other Providers: Terence Whittaker ; Joseph Velázquez ; Rodolfo Devries ; Maribel Davison ; Fred Echols ; Stephanie Lugo ; Derrick Conrad ; Richy Conti ; Darion Parada ; Ken Peña ; Richy Nichole ; Phi Chavez ; Harsh Saunders ; Wilfredo Carlos ; Evangelista Cody ; Stephanie Doss ; Heriberto Estrada ; Janice Lopez ; Eugenio Mello ; Tata Billings ; Valente Foreman ; Dinah Newman ; Cristian Kraus ; Florina Marquez ; Loli Khan
[2022-08-31] MEDS: ENOXAPARIN INJ 40 MG/0.4 ML SYR SQ SCH (13:37)
--- NOTE | 2022-09-06 08:46 | Coding Query ---
CODING QUERY To promote full compliance with coding requirements relating to patient care, provider participation is requested in all cases of poolroom table attendant uncertainty. Please assist us with the question(s) below: Coding Question(s): Pt adm with fx pelvis due to osteoposis. CT also revealed fx sacral wing, nondisplaced . Please document the etiology of the Sacral fracture. Thank you . Daniel Hollingsworth [facility] Physician Response: likely Secondary to mechanical fall, age-related osteoporosis Principal Diagnosis: "that condition established after study, to be chiefly responsible for occasioning the admission of the patient to the hospital for care." Co-Existing Principal Diagnosis: "when two or more diagnoses equally meet the criteria for principal diagnosis as determined by the circumstances of admission, diagnostic work up, and/or therapy provided, and the Alphabetic Index, Tabular List, or another coding guideline does not provide sequencing direction, any one of the diagnoses may be sequenced first." "When the physician has documented what appears to be a current diagnosis in the body of the record, but has not included the diagnosis in the final diagnostic statement, the physician should be asked whether the diagnosis should be added." (Source [facility]oding [facility] 2 QTR90. p3-4) KAMILA
--- NOTE | 2022-09-06 08:51 | Coding Query ---
CODING QUERY To promote full compliance with coding requirements relating to patient care, provider participation is requested in all cases of fire hose curer uncertainty. Please assist us with the question(s) below: Coding Question(s): Pt admitted with osteoporotic fracture of hip. Discharge Summary documented aspiration with pneumonia. Please check below the phrase that applies to the aspiration pneumonia. Thank you . Daniel Hollingsworth [facility] Physician's Response(s): ____x____ aspiration pneumonia was treated during this inpatient stay by the same antibiotic UTI was treated aspiration pneumonia was NOT treated during this inpatient stay Cannot clinically correlate if aspiration pneumonia was treated during this inpatient stay Other: Please document: Principal Diagnosis: "that condition established after study, to be chiefly responsible for occasioning the admission of the patient to the hospital for care." Co-Existing Principal Diagnosis: "when two or more diagnoses equally meet the criteria for principal diagnosis as determined by the circumstances of admission, diagnostic work up, and/or therapy provided, and the Alphabetic Index, Tabular List, or another coding guideline does not provide sequencing direction, any one of the diagnoses may be sequenced first." "When the physician has documented what appears to be a current diagnosis in the body of the record, but has not included the diagnosis in the final diagnostic statement, the physician should be asked whether the diagnosis should be added." (Source Coding Clinic 2 QTR90. p3-4) KAMILA
== END 2022-08-31 14:10 | disposition home or self-care (01) | DRG 542 ==
LOC: ED 19:19 → SUATTDRO 08-21 01:36 → 3E 08-21 01:36
DX: Z66 Do not resuscitate; N39.0 Urinary tract infection, site not specified; W06.XXXA Fall from bed, initial encounter; F02.80 Dementia in other diseases classified elsewhere, unspecified severity, without behavioral disturbance, psychotic disturbance, mood disturbance, and anxiety; M80.052A Age-related osteoporosis with current pathological fracture, left femur, initial encounter for fracture; G20 Parkinson's disease; F39 Unspecified mood [affective] disorder; G30.9 Alzheimer's disease, unspecified; Z99.3 Dependence on wheelchair; Y92.89 Other specified places as the place of occurrence of the external cause; Z91.041 Radiographic dye allergy status; Z87.891 Personal history of nicotine dependence; M80.08XA Age-related osteoporosis with current pathological fracture, vertebra(e), initial encounter for fracture; J69.0 Pneumonitis due to inhalation of food and vomit; Z96.642 Presence of left artificial hip joint; B96.29 Other Escherichia coli [E. coli] as the cause of diseases classified elsewhere